=== PATIENT | male | born 1960 | race Two or more races ===

== ENCOUNTER 2016-05-24 08:40 | Inpatient (IN) | payer MEDICAID ==
[~2016-05-24] VITALS: Ht 170.2 cm; Wt 68.0 kg
--- NOTE | 2016-05-24 08:48 | Emergency Room Report ---
History of Present Illness General Source: Patient Present Illness HPI Patient is a 55-year-old male sent in by the nursing facility for increased hematuria. Patient recently catheter placement. Patient was noted to be ventilator dependent. Patient had recent urinary retention. Patient had not been having any recent fever. History is limited by patient's trach in mental status. Patient was awake and alert. Allergies: Coded Allergies: No Known Allergies (Unverified , 05/24/16) Patient History Reviewed Nursing Documentation: PMH: Agreed, PSxH: Agreed Review of Systems All Other Systems: negative except mentioned in HPI Physical Exam Sp02 EP Interpretation: reviewed, normal General Appearance: normal inspection, well appearing, no apparent distress, alert, GCS 15 Head: atraumatic ENT: normal ENT inspection, hearing grossly normal, normal voice Neck: normal inspection, full range of motion, supple, no bony tend Respiratory: normal inspection, lungs clear, normal breath sounds, no respiratory distress, no retraction, no wheezing Cardiovascular #1: regular rate, rhythm, no edema Gastrointestinal: normal inspection, non tender, soft, no guarding, no hernia, spleenomegaly, other - fluid wave Genitourinary: no CVA tenderness Musculoskeletal: normal inspection, back normal, normal range of motion Neurologic: normal inspection, alert, oriented x3, responsive, rfid specialist III-XII nml as tested, speech normal Psychiatric: normal inspection, judgement/insight normal, mood/affect normal Skin: normal inspection, normal color, no rash Medical Decision Making Diagnostic Impression: Primary Impression: Hematuria Additional Impressions: Prolonged Q-T interval on ECG Right bundle branch block (RBBB) Hyponatremia with excess extracellular fluid volume Colon catheter problem Cirrhosis ER Course Patient presented for hematuria. Differential diagnosis included was not limited to renal stone, aortic aneurysm, acute tubular necrosis, glomerulonephritis, renal, Colon catheter injury among others.Because of complexity of patient's case laboratory testing and imaging studies were ordered.Patient noted a ventilator and tracheostomy dependent.The patient was continued on mechanical ventilation.The patient was noted to have a Colon catheter which was placed in in the past few days for urinary retention.Colon catheter was noted to be placed . Colon catheter was changed to a three-way Colon. Patient noted have continued hematuria. Laboratory testing showed evidence of hyponatremia probably related the patient's liver disease. Patient noted have sodium 120. Colon catheter was noted to be placed . Colon catheter was changed to a three-way Colon. Patient noted have continued hematuria. Laboratory testing showed evidence of hyponatremia probably related the patient's liver disease. Patient noted have sodium 120. CT imaging of the abdomen pelvis showed evidence of cirrhosis as well as gallbladder stones there were bilateral pleural effusions. Dr. Breen was contacted for inpatient management due to complexity of medical condition. Labs Test 05/24/16 09:00 White Blood Count 6.9 K/UL (4.8-10.8) Red Blood Count 3.22 M/UL (4.70-6.10) Hemoglobin 10.7 G/DL (14.2-18.0) Hematocrit 30.8 % (42.0-52.0) Mean Corpuscular Volume 96 FL (80-99) Mean Corpuscular Hemoglobin 33.2 PG (27.0-31.0) Mean Corpuscular Hemoglobin Concent 34.7 G/DL (32.0-36.0) Red Cell Distribution Width 15.9 % (11.6-14.8) Platelet Count 201 K/UL (150-450) Mean Platelet Volume 7.0 FL (6.5-10.1) Neutrophils (%) (Auto) 65.9 % (45.0-75.0) Lymphocytes (%) (Auto) 13.5 % (20.0-45.0) Monocytes (%) (Auto) 9.5 % (1.0-10.0) Eosinophils (%) (Auto) 10.3 % (0.0-3.0) Basophils (%) (Auto) 0.8 % (0.0-2.0) Prothrombin Time 14.2 SEC (9.30-11.50) Prothromb Time International Ratio 1.4 (0.9-1.1) Activated Partial Thromboplast Time 35 SEC (23-33) Urine Color Brown Urine Appearance Cloudy Urine pH 5 (4.5-8.0) Urine Specific [place] 1.025 (1.005-1.035) Urine Protein 3+ (NEGATIVE) Urine Glucose (UA) Negative (NEGATIVE) Urine Ketones 1+ (NEGATIVE) Urine Occult Blood 5+ (NEGATIVE) Urine Nitrite Positive (NEGATIVE) Urine Bilirubin Negative (NEGATIVE) Urine Urobilinogen 1 MG/DL (0.0-1.0) Urine Leukocyte Esterase 3+ (NEGATIVE) Urine RBC Tntc /HPF (0 - 0) Urine WBC 15-20 /HPF (0 - 0) Urine Squamous Epithelial Cells Occasional /LPF Urine Bacteria Moderate /HPF (NONE) Sodium Level 120 mEQ/L (135-145) Potassium Level 4.7 mEQ/L (3.4-4.9) Chloride Level 81 mEQ/L (98-107) Carbon Dioxide Level 25 mEQ/L (20-30) Anion Gap 14 (5-15) Blood Urea Nitrogen 12 mg/dL (7-23) Creatinine 0.2 mg/dL (0.7-1.2) Estimat Glomerular Filtration Rate > 60 mL/min (>60) Glucose Level 92 mg/dL (74-106) Lactic Acid Level 1.40 mmol/L (0.66-2.22) Calcium Level 8.2 mg/dL (8.6-10.2) Total Bilirubin 1.1 mg/dL (0.0-1.2) Direct Bilirubin 0.4 mg/dL (0.1-0.3) Aspartate Amino Transf (AST/SGOT) 33 U/L (5-40) Alanine Aminotransferase (ALT/SGPT) 18 U/L (3-41) Alkaline Phosphatase 190 U/L (40-129) Total Creatine Kinase 20 U/L (38-174) Creatine Kinase MB < 1.5 ng/mL (< 6.7) Creatine Kinase MB Relative Index 7.5 Troponin I < 0.30 ng/mL (<=0.30) Total Protein 6.7 g/dL (6.6-8.7) Albumin 2.6 g/dL (3.5-5.2) Globulin 4.1 g/dL Albumin/Globulin Ratio 0.6 (1.0-2.7) EKG Diagnostic Results Rate: normal Rhythm: NSR ST Segments: other - right bundle branch block Rhythm Strip Diag. Results EP Interpretation: yes Rhythm: NSR - 86, no PVC's, no ectopy Status: unchanged Disposition: ADMITTED INPATIENT Condition: Joel Rinaldi May 24, 2016 08:48
[2016-05-24] MEDS ORDERED: PROPRANOLOL HCL10 MG GT (08:58)
[2016-05-24] MEDS ORDERED: LACTULOSE20 GM/301 GT (08:58)
[2016-05-24] MEDS ORDERED: METRONIDAZOLE500 MG GT (08:58)
[2016-05-24] MEDS ORDERED: KEPPRA LIQ100 MG/1 M GT (09:00)
[2016-05-24] MEDS ORDERED: XIFAXAN550 MG GT (09:00)
[2016-05-24] MEDS ORDERED: PEPCID20 MG GT (09:00)
[2016-05-24] MEDS ORDERED: ZINC SULFATE220 M1 GT (09:01)
[2016-05-24] MEDS ORDERED: VITAMIN C500 M1 GT (09:01)
[2016-05-24] MEDS ORDERED: UTI-STAT L3875 MG/31 GT (09:03)
[2016-05-24] MEDS ORDERED: ACETAMINOP160 MG/5 M ORAL (09:03)
[2016-05-24] MEDS ORDERED: FLEET ENEMA133 ML RECTAL (09:05)
[2016-05-24] MEDS ORDERED: MILK OF MA400 MG/51 GT (09:05)
[2016-05-24] MEDS ORDERED: DULCOLAX10 MG RC (09:05)
[2016-05-24 09:27] LABS: BASOPHILS % (AUTO) 0.8 % (0.0-2.0); EOSINOPHILS % (AUTO) 10.3 % (0.0-3.0); LYMPHOCYTES % (AUTO) 13.5 % (20.0-45.0); MEAN CORPUSCULAR HEMOGLOBIN 33.2 PG (27.0-31.0); MEAN CORPUSCULAR HGB CONC 34.7 G/DL (32.0-36.0); MEAN CORPUSCULAR VOLUME 96 FL (80-99); MONOCYTES % (AUTO) 9.5 % (1.0-10.0); NEUTROPHILS % (AUTO) 65.9 % (45.0-75.0); PLATELET COUNT 201 K/UL (150-450); RED BLOOD COUNT 3.22 M/UL (4.70-6.10); RED CELL DISTRIBUTION WIDTH 15.9 % (11.6-14.8); WHITE BLOOD COUNT 6.9 K/UL (4.8-10.8)
[2016-05-24 09:31] LABS: APPEARANCE,URINE CLOUDY; INR 1.4 (0.9-1.1); KETONES,URINE 1+ (NEGATIVE); LEUKOCYTE ESTERASE ,URINE 3+ (NEGATIVE); NITRITE,URINE POSITIVE (NEGATIVE); PH,URINE 5 (4.5-8.0); PROTEIN,URINE 3+ (NEGATIVE); PROTHROMBIN TIME 14.2 SEC (9.30-11.50); UROBILINOGEN,URINE 1 MG/DL (0.0-1.0)
[2016-05-24 09:35] LABS: BACTERIA,URINE MODERATE /HPF; RBC,URINE TNTC /HPF (0 - 0); SQUAMOUS EPITHELIAL CELL,UR OCCASIONAL /LPF (NONE/OCC); WBC,URINE 15-20 /HPF (0 - 0)
[2016-05-24 09:37] LABS: TROPONIN I < 0.30 ng/mL (<=0.30)
[2016-05-24 09:40] LABS: ALANINE AMINOTRANSFERASE 18 U/L (3-41); ALBUMIN/GLOBULIN RATIO 0.6 (1.0-2.7); ANION GAP 14 (5-15); ASPARTATE AMINO TRANSFERASE 33 U/L (5-40); CALCIUM 8.2 mg/dL (8.6-10.2); CARBON DIOXIDE 25 mEQ/L (20-30); CHLORIDE 81 mEQ/L (98-107); CREATININE 0.2 mg/dL (0.7-1.2); GLOMERULAR FILTRATION RATE > 60 mL/min (>60); HEMOLYSIS 3; POTASSIUM 4.7 mEQ/L (3.4-4.9); SODIUM 120 mEQ/L (135-145); TOTAL PROTEIN 6.7 g/dL (6.6-8.7)
[2016-05-24 09:50] LABS: CKMB < 1.5 ng/mL (< 6.7)
[2016-05-24 10:00] VITALS: BP 111/60
[2016-05-24 10:01] LABS: BILIRUBIN,DIRECT 0.4 mg/dL (0.1-0.3)
[2016-05-24] MEDS ORDERED: Morphine Sulfate 2mg/ml Inj IVP ONE (10:45)
[2016-05-24 12:00] VITALS: BP 104/56
[2016-05-24] MEDS ORDERED: Nitroglycerin Subl 0.4mg tab (Bottle Of 25) SL PRN (12:15)
[2016-05-24] MEDS ORDERED: DuoNeb 0.5-3(2.5)mg/3ml neb HHN PRN (12:15)
[2016-05-24] MEDS ORDERED: Miralax 17gm pkt ORAL PRN (12:15)
--- NOTE | 2016-05-24 12:27 | Diagnostic Imaging Report ---
\H\CT Abdomen and Pelvis Indication: Hematuria. Urinary retention with recent catheter placement. Comparison: None available. Technique: Utilizing a multislice CT scanner, a CT of the abdomen and pelvis was performed without intravenous contrast. All CT scans at this facility use dose modulation, iterative reconstruction, and/or weight based dosing when appropriate to reduce radiation dose to as low as reasonably achievable. CTDIvol (mGy): 17 DLP (mGy-cm): 1099 Findings: Lack of intravenous contrast limits evaluation of the visceral and vascular structures. Trace bilateral pleural effusions are identified with probable adjacent atelectasis. Moderate volume ascites is noted throughout the abdomen and pelvis. The liver is nodular in contour compatible with hepatic cirrhosis. Hepatic parenchymal lesion such as HCC is not excluded without IV contrast. The spleen is enlarged. Several portosystemic collaterals are identified. Findings reflect sequela of portal hypertension. The gallbladder contains multiple gallstones in the region of the gallbladder neck. Layering sludge is likely present. Consider HIDA scan if there is clinical suspicion for acute cholecystitis. Small hiatal hernia is noted. A balloon retention gastrostomy tube is noted in the body of the stomach. The pancreas and adrenal glands are unremarkable. No calculus is identified within either kidney, along the expected course of the ureters or within the urinary bladder. There is no evidence of hydronephrosis or asymmetric perirenal inflammatory change. The urinary bladder is decompressed with an indwelling Colon catheter. Air pockets within the urinary bladder likely reflect sequela of recent instrumentation/catheterization. The pelvic organs are grossly unremarkable. Nonspecific wall thickening of the cecum is identified. Findings may reflect sequela of cirrhosis and low albumin state. Malignancy is not excluded. Normal appendix. There is no evidence of obstruction. There is no extraluminal gas or fluid. There are no enlarged lymph nodes. There is mild calcified atherosclerotic disease of the the abdominal aorta. The osseous structures are unremarkable. \N\\H\Impression: 1. Hepatic cirrhosis with sequela of portal hypertension including moderate volume ascites, splenomegaly and portosystemic venous collaterals. Hepatic parenchymal lesion such as HCC is not excluded without IV contrast. 2. Cholelithiasis and gallbladder sludge. Consider HIDA scan if there is clinical suspicion for acute cholecystitis. 3. Decompressed urinary bladder with an indwelling Colon catheter. No hydronephrosis. 4. Nonspecific wall thickening of the cecum. Findings may reflect sequela of cirrhosis and low albumin state. Malignancy is not excluded. 5. Trace bilateral pleural effusions with basilar atelectasis. 6. Small hiatal hernia. Balloon retention gastrostomy tube noted.\N\
--- NOTE | 2016-05-24 13:26 | Consultation ---
Consult Note Consult Note Asked to eval for hyponatremia of 120 Patient is a 55-year-old male sent in by the nursing facility for increased hematuria. Patient recently catheter placement. Patient was noted to be ventilator dependent. Patient had recent urinary retention. Patient had not been having any recent fever. History is limited by patient's trach in mental status. Patient was awake and alert. Allergies: Coded Allergies: No Known Allergies (Unverified , 05/24/16) Patient examined in ER room 1 Data reviewed Assessment/Plan Hyponatremia, likely due to Edematous state and Ascitis due to underlying Cirrhosis Hematuria reason for ER referral Right bundle branch block (RBBB) Colon catheter problem Cirrhosis CVA right javi- OLD Respiratory failure on Vent via Trach Suggestion: Slow saline infusion and slow diuresis monitor lytes avoid nephrotoxics as possible per orders GUS JOHNSON May 24, 2016 13:25
[2016-05-24] MEDS ORDERED: NaCl 3% 500ml 500 ML IV ONE (13:30)
[2016-05-24] MEDS ORDERED: Tubing IV Cassette IV ONE (14:04)
[2016-05-24] MEDS ORDERED: NS 275 ML ONE (14:04)
[2016-05-24] MEDS ORDERED: Vancomycin 1gm inj IVPB ONE (14:04)
[2016-05-24] MEDS: Pantoprazole Inj IVP SCH (14:33)
[2016-05-24] MEDS: Vancomycin 1250mg/D5W 275ml IVPB SCH ×2 (14:34)
[2016-05-24 15:54] LABS: URIC ACID 2.4 mg/dL (3.0-7.5)
[2016-05-24 16:04] LABS: THYROID STIMULATING HORMONE 4.13 uIU/mL (0.300-4.500)
[2016-05-24 17:00] VITALS: BP 104/57
[2016-05-24] MEDS: Cefepime HCl 2 GM in D5W 110 ML IV SCH (17:46)
[2016-05-24] MEDS: Lactulose 20gm/30ml UDC GT SCH ×2 (17:47→20:29)
[2016-05-24] MEDS ORDERED: Propranolol 10mg tab GT SCH (18:00)
[2016-05-24 20:08] VITALS: BP 115/55
--- NOTE | 2016-05-24 22:34 | History and Physical ---
History of Present Illness General Date patient seen: May 25, 2016 Reason for Hospitalization: General Complaint Present Illness HPI 55-year-old male with chronic respiratory failure sent in by the nursing facility for hematuria. He was found to have severe Hyponatremia in ER and was started on 3% sailing. He is admitted to [facility] for further management. Allergies: Coded Allergies: No Known Allergies (Unverified , 05/24/16) Medication History Scheduled Ascorbic Acid* (Vitamin C*), 500 MG GT DAILY, (Reported) Cran/Vitc/Mannose/Inulin/Brom (Uti-Stat Liquid), 3,875 MG GT DAILY, (Reported) Famotidine (Pepcid), 20 MG GT BEDTIME, (Reported) Lactulose (Lactulose*), 30 ML GT QID, (Reported) Levetiracetam (Keppra), 15 ML GT DAILY, (Reported) Propranolol Hcl* (Inderal*), 10 MG GT BID, (Reported) Rifaximin* (Xifaxan*), 550 MG GT TWICE A DAY, (Reported) Zinc Sulfate (Zinc Sulfate*), 220 MG GT DAILY, (Reported) Scheduled PRN Acetaminophen 160MG/5ML* (Acetaminophen*), 20 ML ORAL EVERY 4 HOURS PRN for For Pain, (Reported) Bisacodyl (Dulcolax), 10 MG RC DAILY PRN for Constipation, (Reported) Magnesium Hydroxide* (Milk Of Magnesia*), 30 ML GT DAILY PRN for Constipation, ( Reported) Na Phos,M-B/Na Phos,Di-Ba* (Fleet Enema*), 133 ML RECTAL EVERY TWO DAYS PRN for Constipation, (Reported) Discontinued Medications Metronidazole* (Flagyl*), 500 MG GT EVERY 8 HOURS, (Reported) Discontinued Reason: discontinued med Patient History Healthcare decision maker Resuscitation status Full Code Advanced Directive on File No Review of Systems All Other Systems: negative except mentioned in HPI Physical Exam General Appearance: alert, confused, mild distress HEENT: normocephalic, atraumatic Neck: non-tender, normal alignment Respiratory/Chest: chest wall non-tender, lungs clear Cardiovascular/Chest: regular rhythm, regularly irregular Last 24 Hour Vital Signs Date Time Temp Pulse Resp B/P Pulse Ox O2 Delivery O2 Flow Rate FiO2 05/24/16 21:06 85 25 40 05/24/16 20:08 97.0 85 18 115/55 100 Mechanical Ventilator 40 05/24/16 20:00 40 05/24/16 20:00 82 05/24/16 19:39 83 18 40 05/24/16 17:47 69 94/52 05/24/16 17:08 73 21 40 05/24/16 17:00 97.0 80 19 104/57 100 Mechanical Ventilator 40 05/24/16 16:30 82 05/24/16 16:20 40 05/24/16 15:39 98.0 84 26 104/56 100 Mechanical Ventilator 40 05/24/16 15:20 86 20 40 05/24/16 12:54 87 26 40 05/24/16 12:00 84 20 104/56 100 Mechanical Ventilator 40 05/24/16 11:50 93 26 Mechanical Ventilator 40 05/24/16 11:29 93 26 40 05/24/16 11:26 98.0 05/24/16 10:00 81 18 111/60 100 Mechanical Ventilator 40 05/24/16 08:50 90 31 Mechanical Ventilator 40 05/24/16 08:50 90 31 40 05/24/16 08:50 28 05/24/16 08:50 40 05/24/16 08:45 98.1 76 16 122/60 99 Mechanical Ventilator 28 Laboratory Tests Test 05/24/16 08:50 05/24/16 09:00 05/24/16 15:00 Urine Random Sodium 12 mmol/L White Blood Count 6.9 K/UL (4.8-10.8) Red Blood Count 3.22 M/UL (4.70-6.10) L Hemoglobin 10.7 G/DL (14.2-18.0) L Hematocrit 30.8 % (42.0-52.0) L Mean Corpuscular Volume 96 FL (80-99) Mean Corpuscular Hemoglobin 33.2 PG (27.0-31.0) H Mean Corpuscular Hemoglobin Concent 34.7 G/DL (32.0-36.0) Red Cell Distribution Width 15.9 % (11.6-14.8) H Platelet Count 201 K/UL (150-450) Mean Platelet Volume 7.0 FL (6.5-10.1) Neutrophils (%) (Auto) 65.9 % (45.0-75.0) Lymphocytes (%) (Auto) 13.5 % (20.0-45.0) L Monocytes (%) (Auto) 9.5 % (1.0-10.0) Eosinophils (%) (Auto) 10.3 % (0.0-3.0) H Basophils (%) (Auto) 0.8 % (0.0-2.0) Prothrombin Time 14.2 SEC (9.30-11.50) H Prothromb Time International Ratio 1.4 (0.9-1.1) H Activated Partial Thromboplast Time 35 SEC (23-33) H Urine Color Brown Urine Appearance Cloudy Urine pH 5 (4.5-8.0) Urine Specific [place] 1.025 (1.005-1.035) Urine Protein 3+ (NEGATIVE) H Urine Glucose (UA) Negative (NEGATIVE) Urine Ketones 1+ (NEGATIVE) H Urine Occult Blood 5+ (NEGATIVE) H Urine Nitrite Positive (NEGATIVE) H Urine Bilirubin Negative (NEGATIVE) Urine Urobilinogen 1 MG/DL (0.0-1.0) H Urine Leukocyte Esterase 3+ (NEGATIVE) H Urine RBC Tntc /HPF (0 - 0) H Urine WBC 15-20 /HPF (0 - 0) H Urine Squamous Epithelial Cells Occasional /LPF Urine Bacteria Moderate /HPF (NONE) H Sodium Level 120 mEQ/L (135-145) L Potassium Level 4.7 mEQ/L (3.4-4.9) Chloride Level 81 mEQ/L (98-107) L Carbon Dioxide Level 25 mEQ/L (20-30) Anion Gap 14 (5-15) Blood Urea Nitrogen 12 mg/dL (7-23) Creatinine 0.2 mg/dL (0.7-1.2) L Estimat Glomerular Filtration Rate > 60 mL/min (>60) Glucose Level 92 mg/dL (74-106) Plasma/Serum Osmolality Pending Lactic Acid Level 1.40 mmol/L (0.66-2.22) Uric Acid 2.4 mg/dL (3.0-7.5) L Calcium Level 8.2 mg/dL (8.6-10.2) L Total Bilirubin 1.1 mg/dL (0.0-1.2) Direct Bilirubin 0.4 mg/dL (0.1-0.3) H Aspartate Amino Transf (AST/SGOT) 33 U/L (5-40) Alanine Aminotransferase (ALT/SGPT) 18 U/L (3-41) Alkaline Phosphatase 190 U/L (40-129) H Total Creatine Kinase 20 U/L (38-174) L Creatine Kinase MB < 1.5 ng/mL (< 6.7) Creatine Kinase MB Relative Index 7.5 Troponin I < 0.30 ng/mL (<=0.30) Total Protein 6.7 g/dL (6.6-8.7) Albumin 2.6 g/dL (3.5-5.2) L Globulin 4.1 g/dL Albumin/Globulin Ratio 0.6 (1.0-2.7) L Thyroid Stimulating Hormone (TSH) 4.130 uIU/mL (0.300-4.500) Free Thyroxine 1.26 ng/dL (0.86-1.85) Cortisol Pending Free Triiodothyronine Pending Height (Feet): 5 Height (Inches): 7.00 Weight (Pounds): 150 Medications Current Medications Medications (Trade) Dose Ordered Sig/Hair Route PRN Reason Start Time Stop Time Status Last Admin Dose Admin Acetaminophen (Tylenol) 650 mg Q4H PRN ORAL fever 05/24/16 12:15 06/23/16 12:14 Albuterol/ Ipratropium 3 ml 3 ml Q4HRT PRN HHN Shortness of Breath 05/24/16 12:15 05/29/16 12:14 Cefepime HCl/ Dextrose (Maxipime/D5W) 110 ml @ 220 mls/hr Q12H IV 05/24/16 16:00 05/31/16 15:59 05/24/16 17:46 Furosemide (Lasix) 10 mg Q6H IV 05/24/16 14:00 06/23/16 13:59 05/24/16 20:25 Lactulose 20 gm 20 gm QID GT 05/24/16 18:00 06/23/16 17:59 05/24/16 20:29 Levetiracetam (Keppra) 1,500 mg DAILY GT 05/25/16 09:00 06/24/16 08:59 Morphine Sulfate (Morphine Sulfate) 2 mg Q4H PRN IVP Moderate Pain (Pain Scale 4-6) 05/24/16 12:15 05/31/16 12:14 Nitroglycerin 0.4 mg 0.4 mg 5MIN PRN SL Prn Chest Pain 05/24/16 12:15 06/23/16 12:14 Ondansetron HCl (Zofran) 4 mg Q6H PRN IVP Nausea & Vomiting 05/24/16 12:15 06/23/16 12:14 Pantoprazole (Protonix) 40 mg DAILY IVP 05/24/16 14:30 06/23/16 14:29 05/24/16 14:33 Polyethylene Glycol (Miralax) 17 gm DAILYPRN PRN ORAL Constipation 05/24/16 12:15 06/23/16 12:14 Propranolol HCl (Inderal) 10 mg BID GT 05/24/16 18:00 06/23/16 17:59 Sodium Chloride (Hypertonic Saline) 500 ml @ 30 mls/hr ONCE ONCE IV 05/24/16 13:30 05/25/16 06:09 05/24/16 14:33 Temazepam (Restoril) 15 mg HSPRN PRN ORAL Insomnia 05/24/16 12:15 05/31/16 12:14 Vancomycin HCl (Vanco rx to dose) 1 ea DAILY PRN MISC Per rx protocol 05/24/16 13:45 06/23/16 13:44 Vancomycin HCl/ Dextrose (Vancomycin/D5W) 275 ml @ 183.333 mls/hr Q12H IVPB 05/24/16 14:00 05/29/16 13:59 05/24/16 14:34 Assessment/Plan Problem List: (1) Chronic respiratory failure ICD Codes: J96.10 - Chronic respiratory failure, unspecified whether with hypoxia or hypercapnia SNOMED: 25687552 (2) Hyponatremia ICD Codes: E87.1 - Hypo-osmolality and hyponatremia SNOMED: 46522098 (3) Hematuria ICD Codes: R31.9 - Hematuria, unspecified SNOMED: 63075594 (4) Right bundle branch block (RBBB) ICD Codes: I45.10 - Unspecified right bundle-branch block SNOMED: 91473469 (5) Cirrhosis ICD Codes: K74.60 - Unspecified cirrhosis of liver SNOMED: 50640623 Assessment/Plan Urology evaluation 3% Ns Fluid check cultures r/o UTI as cause of hematuria titrate vent setting as needed SCD for dvt prophylaxis check electrolytes daily DANTE HSIEH May 24, 2016 22:34
[2016-05-25] VITALS: BP 104/57
[2016-05-25] MEDS ORDERED: Vancomycin 1 GM in D5W 275 ML IV SCH (00:30)
[2016-05-25] MEDS: Morphine Sulfate 2mg/ml Inj IVP PRN ×2 (00:37→13:51)
[2016-05-25] MEDS: Vancomycin 1250mg/D5W 275ml IVPB SCH ×4 (02:02→15:37)
[2016-05-25 04:00] VITALS: BP 114/60
[2016-05-25] MEDS: Cefepime HCl 2 GM in D5W 110 ML IV SCH ×2 (04:11→17:15)
[2016-05-25 04:54] LABS: EOSINOPHILS % (AUTO) 8.5 % (0.0-3.0); LYMPHOCYTES % (AUTO) 11.8 % (20.0-45.0); MEAN CORPUSCULAR HEMOGLOBIN 33.7 PG (27.0-31.0); MEAN CORPUSCULAR HGB CONC 34.9 G/DL (32.0-36.0); MEAN CORPUSCULAR VOLUME 97 FL (80-99); MEAN PLATELET VOLUME 6.4 FL (6.5-10.1); MONOCYTES % (AUTO) 8.8 % (1.0-10.0); NEUTROPHILS % (AUTO) 69.9 % (45.0-75.0); PLATELET COUNT 172 K/UL (150-450); RED BLOOD COUNT 2.86 M/UL (4.70-6.10); WHITE BLOOD COUNT 5.3 K/UL (4.8-10.8)
[2016-05-25 05:30] LABS: CRP QUANT 1.2 mg/dL (< 0.5); MAGNESIUM 1.6 mg/dL (1.7-2.5); PHOSPHORUS 4.1 mg/dL (2.5-4.8); URIC ACID 2.9 mg/dL (3.0-7.5)
[2016-05-25 05:33] LABS: ALANINE AMINOTRANSFERASE 18 U/L (3-41); ALBUMIN/GLOBULIN RATIO 0.5 (1.0-2.7); ANION GAP 16 (5-15); ASPARTATE AMINO TRANSFERASE 35 U/L (5-40); CALCIUM 8.1 mg/dL (8.6-10.2); CARBON DIOXIDE 22 mEQ/L (20-30); CHLORIDE 86 mEQ/L (98-107); CREATININE 0.2 mg/dL (0.7-1.2); GLOMERULAR FILTRATION RATE > 60 mL/min (>60); HEMOLYSIS 2; POTASSIUM 4.2 mEQ/L (3.4-4.9); SODIUM 124 mEQ/L (135-145); TOTAL PROTEIN 6.2 g/dL (6.6-8.7)
[2016-05-25 05:59] LABS: BILIRUBIN,DIRECT 0.4 mg/dL (0.1-0.3)
--- NOTE | 2016-05-25 07:18 | Consultation ---
DATE OF CONSULTATION: 05/24/2016 ATTENDING/CONSULTING PHYSICIAN: Uma Breen M.D. CHIEF COMPLAINT/HISTORY OF PRESENT ILLNESS: I was asked by Dr. Breen to evaluate this unfortunate 55-year-old gentleman regarding history of gross hematuria in the setting of urinary tract infection. Briefly, the patient [facility] for noted hematuria. He recently had a catheter placed. The patient has a history of respiratory failure and is ventilator dependent. Taking history is limited by the patient's difficulty providing information due to the trach. Most of the information is gathered from the chart. PAST MEDICAL HISTORY: 1. Chronic respiratory failure with ventilator dependence. 2. Prolonged QT interval/right bundle-branch block on EKG. 3. Cirrhosis. 4. Hyponatremia. 5. Old CVA. PAST SURGICAL HISTORY: Tracheostomy. G-tube is well placed. MEDICATIONS: Please see the chart for current medications and administration details. Briefly, the patient is on cefepime and vancomycin for antibiotic coverage. ALLERGIES: No known drug allergies. SOCIAL HISTORY: Unremarkable tobacco, alcohol, or drug use. FAMILY HISTORY: Noncontributory. REVIEW OF SYSTEMS: A 12-system review of systems cannot be done as the patient cannot provide much information due to the tracheostomy. PHYSICAL EXAMINATION: GENERAL: The patient is a middle-aged gentleman, awake and alert, appears oriented, in no obvious distress. HEENT: NC/AT. EOMI. Oropharynx clear. NECK: Supple. Tracheostomy clean, dry, and intact. CHEST: Within normal limits. ABDOMEN: Soft, flat, nontender, and nondistended. EXTREMITIES: Warm and well perfused. No cyanosis, clubbing, or edema. BACK: No apparent CVA tenderness. NEUROLOGIC: Exam is deferred at this time. GENITOURINARY: Reveals a normal male phallus with a Colon catheter in place. There are bilateral descended testes and cord structures with no masses or tenderness to palpation. LABORATORY DATA: White blood cell count 6.9, hematocrit 30.8, and platelets 201,000. PT 14.2, INR 1.4, and PTT 35. Urinalysis, specific gravity 1.025, pH of 5.0. Dip test notable for 3+ protein, 1+ ketones, 5+ occult blood, positive nitrates, 3+ leukocyte esterase, 1+ urobilinogen. Microanalysis with ooa-yvflexrh-vd-count red blood cells per high-power field, 15 to 20 white blood cells per high-power field, and moderate bacteria seen. Uric acid 2.4. Lactic acid 1.4. DIAGNOSTIC IMAGING: CT scan of the abdomen and pelvis reveals hepatic cirrhosis with evidence of portal hypertension secondary to same. There is cholelithiasis and gallbladder sludge. There is a decompressed urinary bladder with Colon catheter in place. No hydronephrosis. There is nonspecific wall thickening of the cecum. There are trace bilateral pleural effusions and bibasilar atelectasis. There is a small hiatal hernia. There is a G-tube in place. ASSESSMENT AND PLAN: In summary, the patient is a 55-year-old gentleman with a history of previous stroke and chronic respiratory failure who is ventilator dependent. He has a trach and percutaneous endoscopic gastrostomy in place for management and lives in a [facility] facility. Recently, he has a catheter in place for bladder management. He was noted to have hematuria in his SNF. Given the above, he was sent here for further evaluation. Physical exam reveals pinkish yellow urine output currently. Laboratory data notable for hematuria and evidence of urinary tract infection. Diagnostic imaging reveals no significant findings from a genitourinary standpoint on CT scan. It appears this patient's hematuria secondary to urinary tract infection. It already appears to be clearing on his excellent antibiotic coverage to cefepime and vancomycin. We should continue the same. As the patient's urine clears, he should continue and complete a course of 7 to 10 days of antibiotics. If it fails to clear despite the antibiotics, he will need more urgent cystoscopy in an effort to assess for an additional source of bleeding. Thank you for allowing me to participate in the care of this unfortunate gentleman. Please do not hesitate to contact me with any questions that you further have regarding his care. I will be happy to continue to see him with you as needed. Lukas Barajas M.D. DR: AL JOB#: [id number] CC:
[2016-05-25 08:00] VITALS: BP 112/57
--- NOTE | 2016-05-25 08:44 | Consultation ---
Consult Note Consult Note ID CONSULT: Wendy# [id number] Assessment/Plan ASSESSMENT: 55 y/o male with: // Gross hematuria SP cervantes placement in setting of probable UTI - UCx pending - CT A/P: No calculus is identified within either kidney, along the expected course of the ureters or within the urinary bladder. There is no evidence of hydronephrosis or asymmetric perirenal inflammatory change. The urinary bladder is decompressed with an indwelling Cervantes catheter. Air pockets within the urinary bladder likely reflect sequela of recent instrumentation/ catheterization. // Unstageable sacral debuitus POA, not grossly infected // Afebrile without leukocytosis // Cirrhosis // Hyponatremia / electrolyte imbalance // Chronic VDRF SP trach, PEG // h/o CVA // [facility] resident // NKDA // Full Code PLAN: - continue empiric cefepime d# 2 / 10. DC IV vancomycin d# 2 - f/u cultures, adjust ABX accordingly - monitor CBC, temperatures - monitor BMP - vent support, trach care, aspiration precautions Thanks! Will follow JO CABRERA May 25, 2016 08:44
[2016-05-25 08:59] LABS: APPEARANCE,URINE CLOUDY; KETONES,URINE NEGATIVE (NEGATIVE); LEUKOCYTE ESTERASE ,URINE 3+ (NEGATIVE); NITRITE,URINE NEGATIVE (NEGATIVE); PH,URINE 6 (4.5-8.0); PROTEIN,URINE 2+ (NEGATIVE); UROBILINOGEN,URINE NORMAL MG/DL (0.0-1.0)
[2016-05-25 09:12] LABS: BACTERIA,URINE MODERATE /HPF; RBC,URINE TNTC /HPF (0 - 0); SQUAMOUS EPITHELIAL CELL,UR MODERATE /LPF (NONE/OCC); WBC,URINE TNTC /HPF (0 - 0); YEAST,URINE FEW /HPF
--- NOTE | 2016-05-25 09:33 | General Progress Note ---
Assessment/Plan Status: unchanged Status Narrative Na higher Assessment/Plan Hyponatremia, likely due to Edematous state and Ascitis due to underlying Cirrhosis Hematuria reason for ER referral Right bundle branch block (RBBB) Colon catheter problem Cirrhosis CVA right javi- OLD Respiratory failure on Vent via Trach Suggestion: Slow saline infusion and slow diuresis monitor lytes avoid nephrotoxics as possible per orders Subjective ROS Limited/Unobtainable: No Constitutional: Reports: malaise Allergies: Coded Allergies: No Known Allergies (Unverified , 05/24/16) Objective Last 24 Hour Vital Signs Date Time Temp Pulse Resp B/P Pulse Ox O2 Delivery O2 Flow Rate FiO2 05/25/16 09:02 99 25 40 05/25/16 08:00 40 05/25/16 08:00 85 05/25/16 07:38 99 28 40 05/25/16 05:01 87 29 40 05/25/16 04:00 97.4 89 27 114/60 100 Mechanical Ventilator 40 05/25/16 04:00 40 05/25/16 03:44 86 05/25/16 03:09 87 19 40 05/25/16 01:40 97 19 40 05/25/16 00:00 97.0 89 27 104/57 100 Mechanical Ventilator 40 05/25/16 00:00 40 05/24/16 23:50 91 05/24/16 23:12 82 25 40 05/24/16 21:06 85 25 40 05/24/16 20:08 97.0 85 18 115/55 100 Mechanical Ventilator 40 05/24/16 20:00 40 05/24/16 20:00 82 05/24/16 19:39 83 18 40 05/24/16 17:47 69 94/52 05/24/16 17:08 73 21 40 05/24/16 17:00 97.0 80 19 104/57 100 Mechanical Ventilator 40 05/24/16 16:30 82 05/24/16 16:20 40 05/24/16 15:39 98.0 84 26 104/56 100 Mechanical Ventilator 40 05/24/16 15:20 86 20 40 05/24/16 12:54 87 26 40 05/24/16 12:00 84 20 104/56 100 Mechanical Ventilator 40 05/24/16 11:50 93 26 Mechanical Ventilator 40 05/24/16 11:29 93 26 40 05/24/16 11:26 98.0 05/24/16 10:00 81 18 111/60 100 Mechanical Ventilator 40 Intake and Output 05/24/16 05/25/16 19:00 07:00 Intake Total 535 ml 850.000 ml Output Total 400 ml 1480 ml Balance 135 ml -630.000 ml Intake Oral 0 ml Free Water 40 ml IV Total 475 ml 700.000 ml Tube Feeding 50 ml Other 60 ml 60 ml Output Urine Total 400 ml 1480 ml Laboratory Tests 05/24/16 15:00: Free Triiodothyronine [Pending] 05/25/16 03:00: White Blood Count 5.3, Red Blood Count 2.86L, Hemoglobin 9.7L, Hematocrit 27.7L , Mean Corpuscular Volume 97, Mean Corpuscular Hemoglobin 33.7H, Mean Corpuscular Hemoglobin Concent 34.9, Red Cell Distribution Width 16.0H, Platelet Count 172, Mean Platelet Volume 6.4L, Neutrophils (%) (Auto) 69.9, Lymphocytes (%) (Auto) 11.8L, Monocytes (%) (Auto) 8.8, Eosinophils (%) (Auto) 8.5H, Basophils (%) (Auto) 1.0, Sodium Level 124L, Potassium Level 4.2, Chloride Level 86L, Carbon Dioxide Level 22, Anion Gap 16H, Blood Urea Nitrogen 9, Creatinine 0.2L, Estimat Glomerular Filtration Rate > 60, Glucose Level 103, Uric Acid 2.9L, Calcium Level 8.1L, Phosphorus Level 4.1, Magnesium Level 1.6L, Total Bilirubin 1.3H, Direct Bilirubin 0.4H, Gamma Glutamyl Transpeptidase 309H , Aspartate Amino Transf (AST/SGOT) 35, Alanine Aminotransferase (ALT/SGPT) 18, Alkaline Phosphatase 166H, Total Creatine Kinase 20L, C-Reactive Protein, Quantitative 1.2H, Pro-B-Type Natriuretic Peptide 1000H, Total Protein 6.2L, Albumin 2.3L, Globulin 3.9, Albumin/Globulin Ratio 0.5L 05/25/16 05:30: Urine Color Yellow, Urine Appearance Cloudy, Urine pH 6, Urine Specific [place] 1.020, Urine Protein 2+H, Urine Glucose (UA) Negative, Urine Ketones Negative, Urine Occult Blood 5+H, Urine Nitrite Negative, Urine Bilirubin Negative, Urine Urobilinogen Normal, Urine Leukocyte Esterase 3+H, Urine RBC TntcH, Urine WBC TntcH, Urine Squamous Epithelial Cells ModerateH, Urine Bacteria ModerateH, Urine Yeast FewH, Urine Osmolality [Pending] Height (Feet): 5 Height (Inches): 7.00 Weight (Pounds): 150 General Appearance: no apparent distress EENT: other - trach-vent Cardiovascular: tachycardia Respiratory/Chest: decreased breath sounds Abdomen: distended, other - ascitis Objective other PE not changed GUS JOHNSON May 25, 2016 09:33
[2016-05-25] MEDS: levETIRAcetam 500mg/5ml Liquid GT SCH (10:05)
[2016-05-25] MEDS: Lactulose 20gm/30ml UDC GT SCH ×4 (10:05→22:16)
[2016-05-25] MEDS: Pantoprazole Inj IVP SCH (10:06)
[2016-05-25] MEDS ORDERED: NaCl 3% 500ml 500 ML IV ONE (10:30)
--- NOTE | 2016-05-25 11:18 | Consultation ---
DATE OF CONSULTATION: 05/25/2016 INFECTIOUS DISEASE CONSULTATION: CONSULTING PHYSICIAN: Nader Mcleod M.D. ATTENDING PHYSICIAN: Uma Breen M.D. REFERRING PHYSICIAN: Uma Breen M.D. REASON FOR CONSULTATION: UTI. HISTORY OF PRESENT ILLNESS: This is a 55-year-old male, skilled nursing resident with history of chronic ventilator-dependent respiratory failure and stroke, admitted on 05/24/2016, with gross hematuria after Colon catheter placement. Urinalysis suggests probable urinary tract infection. Urine culture is pending. He is afebrile without leukocytosis. CT of abdomen and pelvis shows no kidney stones, hydronephrosis, or pyelonephritis. The urinary bladder is decompressed an with indwelling Colon catheter. He has been started on empiric IV vancomycin and cefepime day #2 and ID now consulted to assist in management. PAST MEDICAL HISTORY: 1. Seizure disorder. 2. Cirrhosis. 3. Cholelithiasis. 4. Stroke. 5. Chronic ventilator-dependent respiratory failure. PAST SURGICAL HISTORY: 1. Tracheostomy. 2. PEG tube placement. FAMILY HISTORY: Unknown. SOCIAL HISTORY: The patient is a resident of a skilled nursing. No active tobacco, alcohol, or illicit drug abuse. ALLERGIES: No known drug allergies. MEDICATIONS: 1. Vancomycin day #2. 2. Cefepime day #2. 3. Lasix. 4. Protonix. 5. Propranolol. 6. Lactulose. 7. Keppra. REVIEW OF SYSTEMS: Unable to obtain. PHYSICAL EXAMINATION: VITAL SIGNS: Maximum temperature 98.1, blood pressure 114/60, heart rate in the 80s, respiratory rate 20, and saturating 100% on 40% FiO2. GENERAL: No apparent distress. Nontoxic appearing. HEENT: Tracheostomy tube in place. CARDIOVASCULAR: Regular rate and rhythm. No murmurs. PULMONARY: Clear to auscultation bilaterally. ABDOMEN: Bowel sounds present. Soft, nondistended, nontender. PEG tube and Colon catheter in place. EXTREMITIES: edema. LABORATORY DATA: White blood cell count 5.3, hemoglobin 9.7, platelets 172,000. Sodium 124, potassium 4.2, chloride 86, bicarbonate 22, BUN 9, and creatinine 0.2. INR 1.4. AST 35, ALT 18, alkaline phosphatase 156. GGT 309. Total bilirubin 1.3. Albumin 2.3. BNP 1000. Troponin negative x1. CRP 1.2. Thyroid function tests within normal limits. MICROBIOLOGY: 1. 05/24/2016, blood culture pending. 2. 05/24/2016, urine culture pending. IMAGING: Reviewed. ASSESSMENT: 1. Gross hematuria, status post Colon catheter placement. 2. Probable urinary tract infection. Urine culture is pending. No evidence of kidney stones. No hydronephrosis or pyelonephritis on CT scan. 3. Unstageable sacral decubitus ulcer, present on admission and not grossly infected. 4. Afebrile without leukocytosis. 5. Cirrhosis. 6. Hyponatremia/electrolyte imbalance. 7. Chronic ventilator-dependent respiratory failure. 8. History of stroke. 9. [facility] resident. 10. No known drug allergies. 11. Full Code. PLAN: 1. Continue empiric cefepime day #2 of #10. 2. Discontinue IV vancomycin. 3. Follow up cultures and adjust antibiotics accordingly. 4. Monitor CBC and temperatures. 5. Monitor BMP. 6. Ventilator support, tracheostomy care, and aspiration precautions. Thank you. We will follow. Nader Mcleod M.D. : Corrie JOB#: [id number] CC: Uma Breen M.D.; Fax#: [phone] Alborzi, M.D ; Fax#: [phone] Smith, M.D.
[2016-05-25 12:00] VITALS: BP 128/72
--- NOTE | 2016-05-25 13:45 | Pulmonology Progress Note ---
Assessment/Plan Problems: (1) Chronic respiratory failure (2) Hyponatremia (3) Hematuria (4) Right bundle branch block (RBBB) (5) Cirrhosis Respiratory: monitor respiratory rate, adjust FIO2 Cardiac: continue to monitor HR/BP Renal: F/U I&O, keep IV fluid, check electrolytes Infectious Disease: check cultures, continue antibiotics Gastrointestinal: continue feedings/current rate Endocrine: monitor blood sugar, check TSH, continue sliding scale insulin Hematologic: transfuse if hgb<8.5 Neurologic: PRN Morphine, keep patient comfortable Affect: PRN ativan Prophylaxis: Protonix, Heparin Disposition: keep in ICU Notes Reviewed: mink rancher, renal Discussed with: nurses, consultants, case assembler Subjective ROS Limited/Unobtainable: Yes Interval Events: awake, agitated at times Allergies: Coded Allergies: No Known Allergies (Unverified , 05/24/16) Objective Last 24 Hour Vital Signs Date Time Temp Pulse Resp B/P Pulse Ox O2 Delivery O2 Flow Rate FiO2 05/25/16 13:03 110 16 40 05/25/16 11:50 40 05/25/16 10:37 101 25 40 05/25/16 09:02 99 25 40 05/25/16 08:00 97.5 94 28 112/57 Mechanical Ventilator 40 05/25/16 08:00 40 05/25/16 08:00 85 05/25/16 07:38 99 28 40 05/25/16 05:01 87 29 40 05/25/16 04:00 97.4 89 27 114/60 100 Mechanical Ventilator 40 05/25/16 04:00 40 05/25/16 03:44 86 05/25/16 03:09 87 19 40 05/25/16 01:40 97 19 40 05/25/16 00:00 97.0 89 27 104/57 100 Mechanical Ventilator 40 05/25/16 00:00 40 05/24/16 23:50 91 05/24/16 23:12 82 25 40 05/24/16 21:06 85 25 40 05/24/16 20:08 97.0 85 18 115/55 100 Mechanical Ventilator 40 05/24/16 20:00 40 05/24/16 20:00 82 05/24/16 19:39 83 18 40 05/24/16 17:47 69 94/52 05/24/16 17:08 73 21 40 05/24/16 17:00 97.0 80 19 104/57 100 Mechanical Ventilator 40 05/24/16 16:30 82 05/24/16 16:20 40 05/24/16 15:39 98.0 84 26 104/56 100 Mechanical Ventilator 40 05/24/16 15:20 86 20 40 Intake and Output 05/24/16 05/25/16 19:00 07:00 Intake Total 535 ml 850.000 ml Output Total 400 ml 1480 ml Balance 135 ml -630.000 ml Intake Oral 0 ml Free Water 40 ml IV Total 475 ml 700.000 ml Tube Feeding 50 ml Other 60 ml 60 ml Output Urine Total 400 ml 1480 ml General Appearance: WD/WN HEENT: normocephalic, atraumatic, status post trach Respiratory/Chest: chest wall non-tender, lungs clear Cardiovascular: normal rate Abdomen: normal bowel sounds, no organomegaly, other - PEG in place Genitourinary: normal external genitalia Extremities: no cyanosis Skin: no rash, no ulcers Neurologic/Psychiatric: rn allergy II-XII grossly normal, no motor/sensory deficits, alert, oriented x 3, normal mood/affect Lymphatic: no neck adenopathy, no groin adenopathy Microbiology Date/Time Source Procedure Growth Status 05/24/16 09:00 Urine,Clean Catch Urine Culture - Preliminary Yeast Species Resulted Laboratory Tests 05/24/16 15:00: Free Triiodothyronine [Pending] 05/25/16 03:00: White Blood Count 5.3, Red Blood Count 2.86L, Hemoglobin 9.7L, Hematocrit 27.7L , Mean Corpuscular Volume 97, Mean Corpuscular Hemoglobin 33.7H, Mean Corpuscular Hemoglobin Concent 34.9, Red Cell Distribution Width 16.0H, Platelet Count 172, Mean Platelet Volume 6.4L, Neutrophils (%) (Auto) 69.9, Lymphocytes (%) (Auto) 11.8L, Monocytes (%) (Auto) 8.8, Eosinophils (%) (Auto) 8.5H, Basophils (%) (Auto) 1.0, Sodium Level 124L, Potassium Level 4.2, Chloride Level 86L, Carbon Dioxide Level 22, Anion Gap 16H, Blood Urea Nitrogen 9, Creatinine 0.2L, Estimat Glomerular Filtration Rate > 60, Glucose Level 103, Uric Acid 2.9L, Calcium Level 8.1L, Phosphorus Level 4.1, Magnesium Level 1.6L, Total Bilirubin 1.3H, Direct Bilirubin 0.4H, Gamma Glutamyl Transpeptidase 309H , Aspartate Amino Transf (AST/SGOT) 35, Alanine Aminotransferase (ALT/SGPT) 18, Alkaline Phosphatase 166H, Total Creatine Kinase 20L, C-Reactive Protein, Quantitative 1.2H, Pro-B-Type Natriuretic Peptide 1000H, Total Protein 6.2L, Albumin 2.3L, Globulin 3.9, Albumin/Globulin Ratio 0.5L 05/25/16 05:30: Urine Color Yellow, Urine Appearance Cloudy, Urine pH 6, Urine Specific [place] 1.020, Urine Protein 2+H, Urine Glucose (UA) Negative, Urine Ketones Negative, Urine Occult Blood 5+H, Urine Nitrite Negative, Urine Bilirubin Negative, Urine Urobilinogen Normal, Urine Leukocyte Esterase 3+H, Urine RBC TntcH, Urine WBC TntcH, Urine Squamous Epithelial Cells ModerateH, Urine Bacteria ModerateH, Urine Yeast FewH, Urine Osmolality [Pending] Current Medications Medications (Trade) Dose Ordered Sig/Hair Route PRN Reason Start Time Stop Time Status Last Admin Dose Admin Acetaminophen (Tylenol) 650 mg Q4H PRN ORAL fever 05/24/16 12:15 06/23/16 12:14 Albuterol/ Ipratropium 3 ml 3 ml Q4HRT PRN HHN Shortness of Breath 05/24/16 12:15 05/29/16 12:14 Cefepime HCl/ Dextrose (Maxipime/D5W) 110 ml @ 220 mls/hr Q12H IV 05/24/16 16:00 05/31/16 15:59 05/25/16 04:11 Furosemide (Lasix) 20 mg Q6H IV 05/25/16 14:00 06/24/16 13:59 Lactulose (Cephulac) 20 gm QID GT 05/24/16 18:00 06/23/16 17:59 05/25/16 10:05 Levetiracetam (Keppra) 1,500 mg DAILY GT 05/25/16 09:00 06/24/16 08:59 05/25/16 10:05 Lorazepam (Ativan 2mg/ml 1ml) 1 mg Q4H PRN IV For Anxiety 05/25/16 13:15 06/01/16 13:14 Morphine Sulfate (Morphine Sulfate) 2 mg Q4H PRN IVP Moderate Pain (Pain Scale 4-6) 05/24/16 12:15 05/31/16 12:14 05/25/16 00:37 Nitroglycerin 0.4 mg 0.4 mg 5MIN PRN SL Prn Chest Pain 05/24/16 12:15 06/23/16 12:14 Ondansetron HCl (Zofran) 4 mg Q6H PRN IVP Nausea & Vomiting 05/24/16 12:15 06/23/16 12:14 Pantoprazole (Protonix) 40 mg DAILY IVP 05/24/16 14:30 06/23/16 14:29 05/25/16 10:06 Polyethylene Glycol (Miralax) 17 gm DAILYPRN PRN ORAL Constipation 05/24/16 12:15 06/23/16 12:14 Propranolol HCl 10 mg 10 mg TID GT 05/25/16 13:00 06/24/16 12:59 Sodium Chloride (Hypertonic Saline) 500 ml @ 30 mls/hr ONCE ONCE IV 05/25/16 10:30 05/26/16 03:09 05/25/16 10:43 Temazepam (Restoril) 15 mg HSPRN PRN ORAL Insomnia 05/24/16 12:15 05/31/16 12:14 Vancomycin HCl (Vanco rx to dose) 1 ea DAILY PRN MISC Per rx protocol 05/24/16 13:45 05/25/16 23:59 Vancomycin HCl/ Dextrose (Vancomycin/D5W) 275 ml @ 183.333 mls/hr Q12H IVPB 05/24/16 14:00 05/25/16 23:59 05/25/16 02:02 DANTE HSIEH May 25, 2016 13:44
[2016-05-25] MEDS: Propranolol 10mg tab GT SCH ×2 (13:51→18:02)
[2016-05-25 16:00] VITALS: BP 124/75
[2016-05-25] MEDS: LORazepam Inj 2mg/ml 1ml IV PRN (16:16)
--- NOTE | 2016-05-25 17:54 | Wound Care Consultation ---
Wound Assessment Wound Assessment : Wound Present on Admission: Yes New Wound: No Status Change of Wound: No Wound Location Body Site: sacral Wound Type: pressure ulcer Marlin Test: Does not Marlin Pressure Ulcer Stage: IV/unstageable Wound Thickness: Full Thickness Wound Length: 10.5 Wound Width: 4.0 Wound Depth: utd Percent of Wound [place]/Red: 30 Percent of Wound Bed Yellow/Wh: 60 Percent of Wound Black/Brown: 10 Wound Drainage Description: Serosanguineous Wound Drainage Amount: Scant Wound Drainage Odor: None/Absent Tissue Surrounding Wound: Macerated Wound General Appearance: Reddened, Draining, Necrotic Wound Comment #1 Sacral stage IV/unstageable pressure ulcer extended to left buttock #2 Scattered scar tissues on different part of the body #3 Open blisters on abdominal area Recommendation -Sacral pressure ulcer Cleanse with saline, pat dry, apply Therahoney gel to wound bed, apply Triad cream to periwound, cover with bordered gauze daily and PRN soiled/dislodged -Open blisters on abdominal area Cleanse with saline, pat dry, apply adaptic, cover with 4x4, secure with paper tape daily and PRN soiled/dislodged -Apply A&D ointment on BLE for dry skin -Keep clean and dry -Turn and reposition -Optimize nutrition -Low air loss overlay mattress -Offload both heels -Heel protector on both heels -Podiatry consult for toe nails -Assess and f/u accordingly for any changes REINALDO DIAZ RN May 25, 2016 17:54
[2016-05-25 20:00] VITALS: BP 107/63
[2016-05-25] MEDS: Vitamin A&D Oint 2oz Tube TOPIC SCH (22:16)
[2016-05-26] VITALS: BP 121/65
[2016-05-26] MEDS: Cefepime HCl 2 GM in D5W 110 ML IV SCH ×2 (03:51→17:12)
[2016-05-26 04:00] VITALS: BP 108/68
[2016-05-26 06:10] LABS: CORTISOL LC 7.7 ug/dL (.)
--- NOTE | 2016-05-26 06:31 | Infectious Diseases Prog Note ---
Assessment/Plan Assessment/Plan ASSESSMENT: 55 y/o male with: // Gross hematuria SP cervantes placement in setting of probable UTI - UCx : Sonja - CT A/P: No calculus is identified within either kidney, along the expected course of the ureters or within the urinary bladder. There is no evidence of hydronephrosis or asymmetric perirenal inflammatory change. The urinary bladder is decompressed with an indwelling Cervantes catheter. Air pockets within the urinary bladder likely reflect sequela of recent instrumentation/ catheterization. // Unstageable sacral debuitus POA, not grossly infected // Afebrile without leukocytosis // Diarrhea Ro C diff // Cirrhosis // Hyponatremia / electrolyte imbalance // Chronic VDRF SP trach, PEG // h/o CVA // [facility] resident // NKDA // Full Code PLAN: - continue empiric cefepime d# 3 / , add Diflucan d# 1 ( 05/25 SP IV vancomycin d# 2) - f/u cultures, adjust ABX accordingly - monitor CBC, temperatures - monitor BMP - vent support, trach care, aspiration precautions - C Diff Subjective Allergies: Coded Allergies: No Known Allergies (Unverified , 05/24/16) Objective Vital Signs Last 24 Hour Vital Signs Date Time Temp Pulse Resp B/P Pulse Ox O2 Delivery O2 Flow Rate FiO2 05/26/16 04:59 81 26 40 05/26/16 04:00 40 05/26/16 03:52 91 05/26/16 02:41 89 30 40 05/26/16 00:53 83 28 40 05/26/16 00:00 97.4 85 30 121/65 100 Mechanical Ventilator 80 05/26/16 00:00 40 05/25/16 23:29 76 05/25/16 22:50 77 23 40 05/25/16 21:06 76 19 40 05/25/16 20:00 40 05/25/16 20:00 97.7 76 20 107/63 100 Mechanical Ventilator 80 05/25/16 20:00 76 05/25/16 18:49 79 19 40 05/25/16 18:02 106 112/57 05/25/16 17:10 106 22 40 05/25/16 16:00 116 05/25/16 16:00 98.4 114 23 124/75 100 Mechanical Ventilator 80 05/25/16 16:00 40 05/25/16 14:40 108 20 40 05/25/16 13:51 110 112/57 05/25/16 13:03 110 16 40 05/25/16 12:00 98.2 103 25 128/72 Mechanical Ventilator 40 05/25/16 11:50 40 05/25/16 10:37 101 25 40 05/25/16 09:02 99 25 40 05/25/16 08:00 97.5 94 28 112/57 Mechanical Ventilator 40 05/25/16 08:00 40 05/25/16 08:00 85 05/25/16 07:38 99 28 40 Height (Feet): 5 Height (Inches): 7.00 Weight (Pounds): 150 Microbiology Date/Time Source Procedure Growth Status 05/24/16 09:00 Blood Blood Culture - Preliminary NO GROWTH AFTER 24 HOURS Resulted 05/24/16 09:00 Blood Blood Culture - Preliminary NO GROWTH AFTER 24 HOURS Resulted 05/24/16 09:00 Urine,Clean Catch Urine Culture - Preliminary Yeast Species Resulted Current Medications Medications (Trade) Dose Ordered Sig/Hair Route PRN Reason Start Time Stop Time Status Last Admin Dose Admin Acetaminophen (Tylenol) 650 mg Q4H PRN ORAL fever 05/24/16 12:15 06/23/16 12:14 Albuterol/ Ipratropium 3 ml 3 ml Q4HRT PRN HHN Shortness of Breath 05/24/16 12:15 05/29/16 12:14 Cefepime HCl/ Dextrose (Maxipime/D5W) 110 ml @ 220 mls/hr Q12H IV 05/24/16 16:00 05/31/16 15:59 05/26/16 03:51 Furosemide (Lasix) 20 mg Q6H IV 05/25/16 14:00 06/24/16 13:59 05/26/16 01:46 Lactulose (Cephulac) 20 gm QID GT 05/24/16 18:00 06/23/16 17:59 05/25/16 22:16 Levetiracetam (Keppra) 1,500 mg DAILY GT 05/25/16 09:00 06/24/16 08:59 05/25/16 10:05 Lorazepam (Ativan 2mg/ml 1ml) 1 mg Q4H PRN IV For Anxiety 05/25/16 13:15 06/01/16 13:14 05/25/16 16:16 Morphine Sulfate (Morphine Sulfate) 2 mg Q4H PRN IVP Moderate Pain (Pain Scale 4-6) 05/24/16 12:15 05/31/16 12:14 05/25/16 13:51 Nitroglycerin (Ntg) 0.4 mg 5MIN PRN SL Prn Chest Pain 05/24/16 12:15 06/23/16 12:14 Ondansetron HCl (Zofran) 4 mg Q6H PRN IVP Nausea & Vomiting 05/24/16 12:15 06/23/16 12:14 Pantoprazole (Protonix) 40 mg DAILY IVP 05/24/16 14:30 06/23/16 14:29 05/25/16 10:06 Polyethylene Glycol (Miralax) 17 gm DAILYPRN PRN ORAL Constipation 05/24/16 12:15 06/23/16 12:14 Propranolol HCl (Inderal) 10 mg TID GT 05/25/16 13:00 06/24/16 12:59 05/25/16 18:02 Temazepam (Restoril) 15 mg HSPRN PRN ORAL Insomnia 05/24/16 12:15 05/31/16 12:14 Vitamin A/Vitamin D (A & D Oint) 1 applic EVERY 12 HOURS TOPIC 05/25/16 21:00 06/24/16 20:59 05/25/16 22:16 SHARRI RAMÍREZ M.D. May 26, 2016 06:31
[2016-05-26 06:48] LABS: BASOPHILS % (AUTO) 1.3 % (0.0-2.0); EOSINOPHILS % (AUTO) 8.2 % (0.0-3.0); LYMPHOCYTES % (AUTO) 9.3 % (20.0-45.0); MEAN CORPUSCULAR HEMOGLOBIN 33.2 PG (27.0-31.0); MEAN CORPUSCULAR HGB CONC 34.8 G/DL (32.0-36.0); MEAN CORPUSCULAR VOLUME 95 FL (80-99); MEAN PLATELET VOLUME 5.6 FL (6.5-10.1); MONOCYTES % (AUTO) 9.3 % (1.0-10.0); NEUTROPHILS % (AUTO) 71.8 % (45.0-75.0); PLATELET COUNT 149 K/UL (150-450); RED BLOOD COUNT 3.02 M/UL (4.70-6.10); RED CELL DISTRIBUTION WIDTH 15.9 % (11.6-14.8); WHITE BLOOD COUNT 5.6 K/UL (4.8-10.8)
[2016-05-26 07:12] LABS: ALANINE AMINOTRANSFERASE 19 U/L (3-41); ALBUMIN/GLOBULIN RATIO 0.7 (1.0-2.7); ANION GAP 17 (5-15); ASPARTATE AMINO TRANSFERASE 44 U/L (5-40); CALCIUM 8.4 mg/dL (8.6-10.2); CARBON DIOXIDE 22 mEQ/L (20-30); CHLORIDE 89 mEQ/L (98-107); CREATININE 0.3 mg/dL (0.7-1.2); CRP QUANT 1.5 mg/dL (< 0.5); GLOMERULAR FILTRATION RATE > 60 mL/min (>60); HEMOLYSIS 28; MAGNESIUM 1.7 mg/dL (1.7-2.5); PHOSPHORUS 3.6 mg/dL (2.5-4.8); POTASSIUM 4.3 mEQ/L (3.4-4.9); SODIUM 128 mEQ/L (135-145); TOTAL PROTEIN 6.3 g/dL (6.6-8.7); URIC ACID 3.3 mg/dL (3.0-7.5)
[2016-05-26 07:30] LABS: BILIRUBIN,DIRECT 0.4 mg/dL (0.1-0.3)
[2016-05-26 08:00] VITALS: BP 106/59
[2016-05-26] MEDS: Vitamin A&D Oint 2oz Tube TOPIC SCH ×2 (08:56→22:35)
[2016-05-26] MEDS: Lactulose 20gm/30ml UDC GT SCH ×4 (08:56→22:34)
[2016-05-26] MEDS: Pantoprazole Inj IVP SCH (08:57)
[2016-05-26] MEDS: levETIRAcetam 500mg/5ml Liquid GT SCH (08:57)
[2016-05-26] MEDS: Propranolol 10mg tab GT SCH ×3 (08:57→17:12)
[2016-05-26] MEDS: Morphine Sulfate 2mg/ml Inj IVP PRN (09:01)
[2016-05-26 12:00] VITALS: BP 110/59
--- NOTE | 2016-05-26 12:07 | Diagnostic Imaging Report ---
Indications: DYSPNEA Technique: Portable AP chest Findings: Comparison: None Suboptimal pulmonary inflation limits evaluation. Linear densities in both lung bases. Superimposed hazy opacities in both lung bases with costophrenic angle indistinctness. Heart size, pulmonary vasculature within normal limits. Aortic arch calcified. Tracheostomy tube in place. IMPRESSION: Pulmonary bibasal subsegmental atelectasis and probable superimposed pleural effusions Tracheostomy Aortosclerosis
--- NOTE | 2016-05-26 12:17 | Pulmonology Progress Note ---
Assessment/Plan Problems: (1) Chronic respiratory failure (2) Hyponatremia (3) Hematuria (4) Right bundle branch block (RBBB) (5) Cirrhosis Respiratory: monitor respiratory rate, adjust FIO2, CXR Cardiac: continue pressors, continue to monitor HR/BP Renal: F/U I&O, keep IV fluid, check electrolytes Infectious Disease: check cultures, continue antibiotics Gastrointestinal: continue feedings/current rate Endocrine: monitor blood sugar, check TSH, continue sliding scale insulin Hematologic: monitor H/H, transfuse if hgb<8.5 Neurologic: PRN Ativan, keep patient comfortable Prophylaxis: Heparin Notes Reviewed: children's aide, cardio, renal Discussed with: nurses, consultants, 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 case 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 Subjective ROS Limited/Unobtainable: No Allergies: Coded Allergies: No Known Allergies (Unverified , 05/24/16) Objective Last 24 Hour Vital Signs Date Time Temp Pulse Resp B/P Pulse Ox O2 Delivery O2 Flow Rate FiO2 05/26/16 10:40 75 26 40 05/26/16 09:05 75 23 40 05/26/16 08:57 78 116/79 05/26/16 08:00 40 05/26/16 08:00 73 05/26/16 08:00 98.2 76 24 106/59 100 Mechanical Ventilator 80 05/26/16 07:02 71 28 40 05/26/16 04:59 81 26 40 05/26/16 04:00 97.9 89 27 108/68 100 Mechanical Ventilator 80 05/26/16 04:00 40 05/26/16 03:52 91 05/26/16 02:41 89 30 40 05/26/16 00:53 83 28 40 05/26/16 00:00 97.4 85 30 121/65 100 Mechanical Ventilator 80 05/26/16 00:00 40 05/25/16 23:29 76 05/25/16 22:50 77 23 40 05/25/16 21:06 76 19 40 05/25/16 20:00 40 05/25/16 20:00 97.7 76 20 107/63 100 Mechanical Ventilator 80 05/25/16 20:00 76 05/25/16 18:49 79 19 40 05/25/16 18:02 106 112/57 05/25/16 17:10 106 22 40 05/25/16 16:00 116 05/25/16 16:00 98.4 114 23 124/75 100 Mechanical Ventilator 80 05/25/16 16:00 40 05/25/16 14:40 108 20 40 05/25/16 13:51 110 112/57 05/25/16 13:03 110 16 40 Intake and Output 05/25/16 05/26/16 19:00 07:00 Intake Total 1056 ml 740 ml Output Total 1000 ml 3900 ml Balance 56 ml -3160 ml Free Water 100 ml 40 ml IV Total 626 ml 380 ml Tube Feeding 270 ml 260 ml Other 60 ml 60 ml Output Urine Total 1000 ml 3100 ml Stool Total 800 ml # Bowel Movements 2 General Appearance: WD/WN HEENT: normocephalic, status post trach Respiratory/Chest: chest wall non-tender, lungs clear Cardiovascular: normal peripheral pulses, normal rate Abdomen: normal bowel sounds, soft, non tender Genitourinary: normal external genitalia Extremities: no clubbing 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 Complete 05/25/16 05:30 Urine,Clean Catch Urine Culture - Preliminary Resulted 05/24/16 09:00 Urine,Clean Catch Urine Culture - Final Sonja Tropicalis Complete 05/24/16 09:15 Rectum VRE Culture - Final Complete Laboratory Tests 05/26/16 06:25: White Blood Count 5.6, Red Blood Count 3.02L, Hemoglobin 10.0L, Hematocrit 28.7L , Mean Corpuscular Volume 95, Mean Corpuscular Hemoglobin 33.2H, Mean Corpuscular Hemoglobin Concent 34.8, Red Cell Distribution Width 15.9H, Platelet Count 149L, Mean Platelet Volume 5.6L, Neutrophils (%) (Auto) 71.8, Lymphocytes (%) (Auto) 9.3L, Monocytes (%) (Auto) 9.3, Eosinophils (%) (Auto) 8.2H, Basophils (%) (Auto) 1.3, Sodium Level 128L, Potassium Level 4.3, Chloride Level 89L, Carbon Dioxide Level 22, Anion Gap 17H, Blood Urea Nitrogen 6L, Creatinine 0.3L, Estimat Glomerular Filtration Rate > 60, Glucose Level 97, Uric Acid 3.3, Calcium Level 8.4L, Phosphorus Level 3.6, Magnesium Level 1.7, Total Bilirubin 1.5H, Direct Bilirubin 0.4H, Aspartate Amino Transf (AST/SGOT) 44H, Alanine Aminotransferase (ALT/SGPT) 19, Alkaline Phosphatase 176H, C- Reactive Protein, Quantitative 1.5H, Pro-B-Type Natriuretic Peptide 2262H, Total Protein 6.3L, Albumin 2.7L, Globulin 3.6, Albumin/Globulin Ratio 0.7L Current Medications Medications (Trade) Dose Ordered Sig/Hair Route PRN Reason Start Time Stop Time Status Last Admin Dose Admin Acetaminophen (Tylenol) 650 mg Q4H PRN ORAL fever 05/24/16 12:15 06/23/16 12:14 Albuterol/ Ipratropium 3 ml 3 ml Q4HRT PRN HHN Shortness of Breath 05/24/16 12:15 05/29/16 12:14 Cefepime HCl/ Dextrose (Maxipime/D5W) 110 ml @ 220 mls/hr Q12H IV 05/24/16 16:00 05/31/16 15:59 05/26/16 03:51 Fluconazole/ Sodium Chloride (Diflucan 200mg/ 100ml Premix) 100 ml @ 100 mls/hr Q24H IV 05/26/16 08:00 06/02/16 07:59 05/26/16 08:00 Furosemide (Lasix) 20 mg Q6H IV 05/25/16 14:00 06/24/16 13:59 05/26/16 08:56 Lactulose (Cephulac) 20 gm QID GT 05/24/16 18:00 06/23/16 17:59 05/26/16 08:56 Levetiracetam (Keppra) 1,500 mg DAILY GT 05/25/16 09:00 06/24/16 08:59 05/26/16 08:57 Lorazepam (Ativan 2mg/ml 1ml) 1 mg Q4H PRN IV For Anxiety 05/25/16 13:15 06/01/16 13:14 05/25/16 16:16 Morphine Sulfate (Morphine Sulfate) 2 mg Q4H PRN IVP Moderate Pain (Pain Scale 4-6) 05/24/16 12:15 05/31/16 12:14 05/26/16 09:01 Nitroglycerin (Ntg) 0.4 mg 5MIN PRN SL Prn Chest Pain 05/24/16 12:15 06/23/16 12:14 Ondansetron HCl (Zofran) 4 mg Q6H PRN IVP Nausea & Vomiting 05/24/16 12:15 06/23/16 12:14 05/26/16 08:56 Pantoprazole (Protonix) 40 mg DAILY IVP 05/24/16 14:30 06/23/16 14:29 05/26/16 08:57 Polyethylene Glycol (Miralax) 17 gm DAILYPRN PRN ORAL Constipation 05/24/16 12:15 06/23/16 12:14 Propranolol HCl (Inderal) 10 mg TID GT 05/25/16 13:00 06/24/16 12:59 05/26/16 08:57 Temazepam (Restoril) 15 mg HSPRN PRN ORAL Insomnia 05/24/16 12:15 05/31/16 12:14 Vitamin A/Vitamin D 1 applic 1 applic EVERY 12 HOURS TOPIC 05/25/16 21:00 06/24/16 20:59 05/26/16 08:56 DANTE HSIEH May 26, 2016 12:17
--- NOTE | 2016-05-26 13:00 | General Progress Note ---
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 Respiratory failure on Vent via Trach Suggestion: Slow saline infusion and slow diuresis monitor lytes avoid nephrotoxics as possible per orders Subjective ROS Limited/Unobtainable: No Constitutional: Reports: malaise Allergies: Coded Allergies: No Known Allergies (Unverified , 05/24/16) Objective Last 24 Hour Vital Signs Date Time Temp Pulse Resp B/P Pulse Ox O2 Delivery O2 Flow Rate FiO2 05/26/16 12:00 75 05/26/16 12:00 40 05/26/16 12:00 98.2 76 25 110/59 100 Mechanical Ventilator 80 05/26/16 10:40 75 26 40 05/26/16 09:05 75 23 40 05/26/16 08:57 78 116/79 05/26/16 08:00 40 05/26/16 08:00 73 05/26/16 08:00 98.2 76 24 106/59 100 Mechanical Ventilator 80 05/26/16 07:02 71 28 40 05/26/16 04:59 81 26 40 05/26/16 04:00 97.9 89 27 108/68 100 Mechanical Ventilator 80 05/26/16 04:00 40 05/26/16 03:52 91 05/26/16 02:41 89 30 40 05/26/16 00:53 83 28 40 05/26/16 00:00 97.4 85 30 121/65 100 Mechanical Ventilator 80 05/26/16 00:00 40 05/25/16 23:29 76 05/25/16 22:50 77 23 40 05/25/16 21:06 76 19 40 05/25/16 20:00 40 05/25/16 20:00 97.7 76 20 107/63 100 Mechanical Ventilator 80 05/25/16 20:00 76 05/25/16 18:49 79 19 40 05/25/16 18:02 106 112/57 05/25/16 17:10 106 22 40 05/25/16 16:00 116 05/25/16 16:00 98.4 114 23 124/75 100 Mechanical Ventilator 80 05/25/16 16:00 40 05/25/16 14:40 108 20 40 05/25/16 13:51 110 112/57 05/25/16 13:03 110 16 40 Intake and Output 05/25/16 05/26/16 19:00 07:00 Intake Total 1056 ml 740 ml Output Total 1000 ml 3900 ml Balance 56 ml -3160 ml Free Water 100 ml 40 ml IV Total 626 ml 380 ml Tube Feeding 270 ml 260 ml Other 60 ml 60 ml Output Urine Total 1000 ml 3100 ml Stool Total 800 ml # Bowel Movements 2 Laboratory Tests 05/26/16 06:25: White Blood Count 5.6, Red Blood Count 3.02L, Hemoglobin 10.0L, Hematocrit 28.7L , Mean Corpuscular Volume 95, Mean Corpuscular Hemoglobin 33.2H, Mean Corpuscular Hemoglobin Concent 34.8, Red Cell Distribution Width 15.9H, Platelet Count 149L, Mean Platelet Volume 5.6L, Neutrophils (%) (Auto) 71.8, Lymphocytes (%) (Auto) 9.3L, Monocytes (%) (Auto) 9.3, Eosinophils (%) (Auto) 8.2H, Basophils (%) (Auto) 1.3, Sodium Level 128L, Potassium Level 4.3, Chloride Level 89L, Carbon Dioxide Level 22, Anion Gap 17H, Blood Urea Nitrogen 6L, Creatinine 0.3L, Estimat Glomerular Filtration Rate > 60, Glucose Level 97, Uric Acid 3.3, Calcium Level 8.4L, Phosphorus Level 3.6, Magnesium Level 1.7, Total Bilirubin 1.5H, Direct Bilirubin 0.4H, Aspartate Amino Transf (AST/SGOT) 44H, Alanine Aminotransferase (ALT/SGPT) 19, Alkaline Phosphatase 176H, C- Reactive Protein, Quantitative 1.5H, Pro-B-Type Natriuretic Peptide 2262H, Total Protein 6.3L, Albumin 2.7L, Globulin 3.6, Albumin/Globulin Ratio 0.7L Height (Feet): 5 Height (Inches): 7.00 Weight (Pounds): 150 General Appearance: no apparent distress Cardiovascular: normal rate Respiratory/Chest: decreased breath sounds Abdomen: distended Objective other PE not changed GUS JOHNSON May 26, 2016 13:00
[2016-05-26] MEDS ORDERED: NaCl 3% 500ml 500 ML IV ONE (14:00)
[2016-05-26 16:00] VITALS: BP 104/57
[2016-05-26] MEDS ORDERED: Tubing IV Secondary IV ONE (18:51)
[2016-05-26] MEDS ORDERED: NS 275ml ONE (18:51)
[2016-05-26 20:00] VITALS: BP 116/87
[2016-05-27] VITALS: BP 104/57
[2016-05-27] MEDS: Morphine Sulfate 2mg/ml Inj IVP PRN (02:13)
[2016-05-27 04:00] VITALS: BP 100/55
[2016-05-27] MEDS: Cefepime HCl 2 GM in D5W 110 ML IV SCH ×2 (04:56→16:00)
[2016-05-27 05:34] LABS: BASOPHILS % (AUTO) 0.9 % (0.0-2.0); EOSINOPHILS % (AUTO) 11.7 % (0.0-3.0); LYMPHOCYTES % (AUTO) 9.9 % (20.0-45.0); MEAN CORPUSCULAR HEMOGLOBIN 33.4 PG (27.0-31.0); MEAN CORPUSCULAR HGB CONC 34.4 G/DL (32.0-36.0); MEAN CORPUSCULAR VOLUME 97 FL (80-99); MONOCYTES % (AUTO) 8.5 % (1.0-10.0); PLATELET COUNT 148 K/UL (150-450); RED BLOOD COUNT 3.05 M/UL (4.70-6.10); RED CELL DISTRIBUTION WIDTH 15.7 % (11.6-14.8); WHITE BLOOD COUNT 5.6 K/UL (4.8-10.8)
[2016-05-27] MEDS: LORazepam Inj 2mg/ml 1ml IV PRN (05:50)
[2016-05-27 06:15] LABS: ALANINE AMINOTRANSFERASE 19 U/L (3-41); CALCIUM 8.3 mg/dL (8.6-10.2); CHLORIDE 96 mEQ/L (98-107); POTASSIUM 3.6 mEQ/L (3.4-4.9); SODIUM 134 mEQ/L (135-145)
[2016-05-27 06:31] LABS: ALBUMIN/GLOBULIN RATIO 0.6 (1.0-2.7); ANION GAP 13 (5-15); ASPARTATE AMINO TRANSFERASE 35 U/L (5-40); CARBON DIOXIDE 25 mEQ/L (20-30); CREATININE 0.3 mg/dL (0.7-1.2); GLOMERULAR FILTRATION RATE > 60 mL/min (>60); HEMOLYSIS 1; MAGNESIUM 1.6 mg/dL (1.7-2.5); PHOSPHORUS 3.2 mg/dL (2.5-4.8); TOTAL PROTEIN 6.6 g/dL (6.6-8.7)
[2016-05-27 06:53] LABS: URIC ACID 3.5 mg/dL (3.0-7.5)
[2016-05-27 07:07] LABS: BILIRUBIN,DIRECT 0.4 mg/dL (0.1-0.3)
[2016-05-27 08:00] VITALS: BP 95/55
[2016-05-27] MEDS: levETIRAcetam 500mg/5ml Liquid GT SCH (08:03)
[2016-05-27] MEDS: Lactulose 20gm/30ml UDC GT SCH ×4 (08:03→20:09)
[2016-05-27] MEDS: Pantoprazole Inj IVP SCH (08:03)
[2016-05-27] MEDS: Vitamin A&D Oint 2oz Tube TOPIC SCH ×2 (08:04→20:09)
[2016-05-27] MEDS: Propranolol 10mg tab GT SCH ×3 (08:04→18:31)
--- NOTE | 2016-05-27 10:57 | Infectious Diseases Prog Note ---
Assessment/Plan Assessment/Plan ASSESSMENT: 55 y/o male with: // Gross hematuria SP cervantes placement in setting of probable UTI - UCx : Sonja - CT A/P: No calculus is identified within either kidney, along the expected course of the ureters or within the urinary bladder. There is no evidence of hydronephrosis or asymmetric perirenal inflammatory change. The urinary bladder is decompressed with an indwelling Cervantes catheter. Air pockets within the urinary bladder likely reflect sequela of recent instrumentation/ catheterization. // Unstageable sacral debuitus POA, not grossly infected // Afebrile without leukocytosis // Diarrhea, C diff : neg // Cirrhosis // Hyponatremia / electrolyte imbalance // Chronic VDRF SP trach, PEG // h/o CVA // [place] resident // NKDA // Full Code PLAN: - continue empiric cefepime d# 4 / 5 , and Diflucan d# 2 / 14 ( 05/25 SP IV vancomycin d# 2) - f/u cultures, - monitor CBC, temperatures - monitor BMP - vent support, trach care, aspiration precaution Subjective Constitutional: Denies: anorexia, chills, drenching sweats, fatigue, fever, no symptoms, other Allergies: Coded Allergies: No Known Allergies (Unverified , 05/24/16) Objective Vital Signs Last 24 Hour Vital Signs Date Time Temp Pulse Resp B/P Pulse Ox O2 Delivery O2 Flow Rate FiO2 05/27/16 09:17 84 28 40 05/27/16 08:04 78 100/55 05/27/16 08:00 40 05/27/16 08:00 97.3 76 20 95/55 100 Mechanical Ventilator 40 05/27/16 06:49 82 23 40 05/27/16 05:27 82 25 80 05/27/16 04:00 77 05/27/16 04:00 98.1 75 18 100/55 100 Mechanical Ventilator 40 05/27/16 04:00 40 05/27/16 03:05 71 21 80 05/27/16 00:47 77 24 80 05/27/16 00:00 71 05/27/16 00:00 97.4 83 18 104/57 100 Mechanical Ventilator 05/27/16 00:00 40 05/26/16 23:11 77 25 80 05/26/16 21:30 85 27 80 05/26/16 20:00 82 05/26/16 20:00 40 05/26/16 20:00 96.4 82 20 116/87 100 Mechanical Ventilator 80 05/26/16 18:44 80 27 80 05/26/16 17:12 77 107/57 05/26/16 17:11 82 27 80 05/26/16 17:00 40 05/26/16 16:00 80 05/26/16 16:00 97.7 77 20 104/57 100 Mechanical Ventilator 80 05/26/16 16:00 82 05/26/16 14:38 71 23 80 05/26/16 13:00 78 120/54 05/26/16 12:43 77 24 80 05/26/16 12:00 75 05/26/16 12:00 40 05/26/16 12:00 98.2 76 25 110/59 100 Mechanical Ventilator 80 Height (Feet): 5 Height (Inches): 7.00 Weight (Pounds): 150 HEENT: atraumatic Respiratory/Chest: lungs clear Cardiovascular: normal rate Abdomen: soft, non tender Microbiology Date/Time Source Procedure Growth Status 05/26/16 14:00 Stool Clostridium difficile Toxin Assay - Final Complete 05/25/16 05:30 Urine,Clean Catch Urine Culture - Preliminary YEAST Resulted Laboratory Tests Test 05/27/16 03:40 White Blood Count 5.6 K/UL (4.8-10.8) Red Blood Count 3.05 M/UL (4.70-6.10) L Hemoglobin 10.2 G/DL (14.2-18.0) L Hematocrit 29.7 % (42.0-52.0) L Mean Corpuscular Volume 97 FL (80-99) Mean Corpuscular Hemoglobin 33.4 PG (27.0-31.0) H Mean Corpuscular Hemoglobin Concent 34.4 G/DL (32.0-36.0) Red Cell Distribution Width 15.7 % (11.6-14.8) H Platelet Count 148 K/UL (150-450) L Mean Platelet Volume 6.0 FL (6.5-10.1) L Neutrophils (%) (Auto) 69.0 % (45.0-75.0) Lymphocytes (%) (Auto) 9.9 % (20.0-45.0) L Monocytes (%) (Auto) 8.5 % (1.0-10.0) Eosinophils (%) (Auto) 11.7 % (0.0-3.0) H Basophils (%) (Auto) 0.9 % (0.0-2.0) Sodium Level 134 mEQ/L (135-145) L Potassium Level 3.6 mEQ/L (3.4-4.9) Chloride Level 96 mEQ/L (98-107) L Carbon Dioxide Level 25 mEQ/L (20-30) Anion Gap 13 (5-15) Blood Urea Nitrogen 7 mg/dL (7-23) Creatinine 0.3 mg/dL (0.7-1.2) L Estimat Glomerular Filtration Rate > 60 mL/min (>60) Glucose Level 115 mg/dL (74-106) H Uric Acid 3.5 mg/dL (3.0-7.5) Calcium Level 8.3 mg/dL (8.6-10.2) L Phosphorus Level 3.2 mg/dL (2.5-4.8) Magnesium Level 1.6 mg/dL (1.7-2.5) L Total Bilirubin 1.3 mg/dL (0.0-1.2) H Direct Bilirubin 0.4 mg/dL (0.1-0.3) H Aspartate Amino Transf (AST/SGOT) 35 U/L (5-40) Alanine Aminotransferase (ALT/SGPT) 19 U/L (3-41) Alkaline Phosphatase 183 U/L (40-129) H Pro-B-Type Natriuretic Peptide 2308 pg/mL (0-125) H Total Protein 6.6 g/dL (6.6-8.7) Albumin 2.6 g/dL (3.5-5.2) L Globulin 4.0 g/dL Albumin/Globulin Ratio 0.6 (1.0-2.7) L Current Medications Medications (Trade) Dose Ordered Sig/Hair Route PRN Reason Start Time Stop Time Status Last Admin Dose Admin Acetaminophen (Tylenol) 650 mg Q4H PRN ORAL fever 05/24/16 12:15 06/23/16 12:14 Albuterol/ Ipratropium 3 ml 3 ml Q4HRT PRN HHN Shortness of Breath 05/24/16 12:15 05/29/16 12:14 Cefepime HCl/ Dextrose (Maxipime/D5W) 110 ml @ 220 mls/hr Q12H IV 05/24/16 16:00 05/31/16 15:59 05/27/16 04:56 Fluconazole/ Sodium Chloride 100 ml @ 100 mls/hr Q24H IV 05/26/16 08:00 06/02/16 07:59 05/27/16 08:00 Furosemide (Lasix) 20 mg Q6H IV 05/25/16 14:00 06/24/16 13:59 05/27/16 08:03 Lactulose (Cephulac) 20 gm QID GT 05/24/16 18:00 06/23/16 17:59 05/27/16 08:03 Levetiracetam (Keppra) 1,500 mg DAILY GT 05/25/16 09:00 06/24/16 08:59 05/27/16 08:03 Lorazepam (Ativan 2mg/ml 1ml) 1 mg Q4H PRN IV For Anxiety 05/25/16 13:15 06/01/16 13:14 05/27/16 05:50 Magnesium Sulfate (Magnesium Sulfate 1gm/100ml) 100 ml @ 100 mls/hr Q1H IVPB 05/27/16 10:00 05/27/16 13:59 05/27/16 10:14 Morphine Sulfate (Morphine Sulfate) 2 mg Q4H PRN IVP Moderate Pain (Pain Scale 4-6) 05/24/16 12:15 05/31/16 12:14 05/27/16 02:13 Nitroglycerin (Ntg) 0.4 mg 5MIN PRN SL Prn Chest Pain 05/24/16 12:15 06/23/16 12:14 Ondansetron HCl (Zofran) 4 mg Q6H PRN IVP Nausea & Vomiting 05/24/16 12:15 06/23/16 12:14 05/26/16 08:56 Pantoprazole (Protonix) 40 mg DAILY IVP 05/24/16 14:30 06/23/16 14:29 05/27/16 08:03 Polyethylene Glycol (Miralax) 17 gm DAILYPRN PRN ORAL Constipation 05/24/16 12:15 06/23/16 12:14 Propranolol HCl (Inderal) 10 mg TID GT 05/25/16 13:00 06/24/16 12:59 05/27/16 08:04 Temazepam (Restoril) 15 mg HSPRN PRN ORAL Insomnia 05/24/16 12:15 05/31/16 12:14 Vitamin A/Vitamin D 1 applic 1 applic EVERY 12 HOURS TOPIC 05/25/16 21:00 06/24/16 20:59 05/27/16 08:04 SHARRI RAMÍREZ M.D. May 27, 2016 10:57
--- NOTE | 2016-05-27 11:39 | Pulmonology Progress Note ---
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 Subjective ROS Limited/Unobtainable: Yes Allergies: Coded Allergies: No Known Allergies (Unverified , 05/24/16) Objective Last 24 Hour Vital Signs Date Time Temp Pulse Resp B/P Pulse Ox O2 Delivery O2 Flow Rate FiO2 05/27/16 11:18 77 29 40 05/27/16 09:17 84 28 40 05/27/16 08:04 78 100/55 05/27/16 08:00 40 05/27/16 08:00 97.3 76 20 95/55 100 Mechanical Ventilator 40 05/27/16 06:49 82 23 40 05/27/16 05:27 82 25 80 05/27/16 04:00 77 05/27/16 04:00 98.1 75 18 100/55 100 Mechanical Ventilator 40 05/27/16 04:00 40 05/27/16 03:05 71 21 80 05/27/16 00:47 77 24 80 05/27/16 00:00 71 05/27/16 00:00 97.4 83 18 104/57 100 Mechanical Ventilator 05/27/16 00:00 40 05/26/16 23:11 77 25 80 05/26/16 21:30 85 27 80 05/26/16 20:00 82 05/26/16 20:00 40 05/26/16 20:00 96.4 82 20 116/87 100 Mechanical Ventilator 80 05/26/16 18:44 80 27 80 05/26/16 17:12 77 107/57 05/26/16 17:11 82 27 80 05/26/16 17:00 40 05/26/16 16:00 80 05/26/16 16:00 97.7 77 20 104/57 100 Mechanical Ventilator 80 05/26/16 16:00 82 05/26/16 14:38 71 23 80 05/26/16 13:00 78 120/54 05/26/16 12:43 77 24 80 05/26/16 12:00 75 05/26/16 12:00 40 05/26/16 12:00 98.2 76 25 110/59 100 Mechanical Ventilator 80 Intake and Output 05/26/16 05/27/16 19:00 07:00 Intake Total 1040 ml 900 ml Output Total 1350 ml 1800 ml Balance -310 ml -900 ml Free Water 170 ml 100 ml IV Total 355 ml 440 ml Tube Feeding 515 ml 360 ml Output Urine Total 1300 ml 1200 ml Stool Total 50 ml 600 ml General Appearance: WD/WN HEENT: normocephalic, atraumatic Respiratory/Chest: chest wall non-tender, lungs clear Cardiovascular: normal peripheral pulses, normal rate Abdomen: normal bowel sounds, soft, non tender Extremities: no cyanosis Skin: no rash 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, no motor/sensory deficits, normal mood/affect Microbiology Date/Time Source Procedure Growth Status 05/26/16 14:00 Stool Clostridium difficile Toxin Assay - Final Complete 05/25/16 05:30 Urine,Clean Catch Urine Culture - Preliminary YEAST Resulted Laboratory Tests 05/27/16 03:40: White Blood Count 5.6, Red Blood Count 3.05L, Hemoglobin 10.2L, Hematocrit 29.7L , Mean Corpuscular Volume 97, Mean Corpuscular Hemoglobin 33.4H, Mean Corpuscular Hemoglobin Concent 34.4, Red Cell Distribution Width 15.7H, Platelet Count 148L, Mean Platelet Volume 6.0L, Neutrophils (%) (Auto) 69.0, Lymphocytes (%) (Auto) 9.9L, Monocytes (%) (Auto) 8.5, Eosinophils (%) (Auto) 11.7H, Basophils (%) (Auto) 0.9, Sodium Level 134L, Potassium Level 3.6, Chloride Level 96L, Carbon Dioxide Level 25, Anion Gap 13, Blood Urea Nitrogen 7 , Creatinine 0.3L, Estimat Glomerular Filtration Rate > 60, Glucose Level 115H, Uric Acid 3.5, Calcium Level 8.3L, Phosphorus Level 3.2, Magnesium Level 1.6L, Total Bilirubin 1.3H, Direct Bilirubin 0.4H, Aspartate Amino Transf (AST/SGOT) 35, Alanine Aminotransferase (ALT/SGPT) 19, Alkaline Phosphatase 183H, Pro-B- Type Natriuretic Peptide 2308H, Total Protein 6.6, Albumin 2.6L, Globulin 4.0, Albumin/Globulin Ratio 0.6L Current Medications Medications (Trade) Dose Ordered Sig/Hair Route PRN Reason Start Time Stop Time Status Last Admin Dose Admin Acetaminophen (Tylenol) 650 mg Q4H PRN ORAL fever 05/24/16 12:15 06/23/16 12:14 Albuterol/ Ipratropium 3 ml 3 ml Q4HRT PRN HHN Shortness of Breath 05/24/16 12:15 05/29/16 12:14 Cefepime HCl/ Dextrose (Maxipime/D5W) 110 ml @ 220 mls/hr Q12H IV 05/24/16 16:00 05/31/16 15:59 05/27/16 04:56 Fluconazole/ Sodium Chloride 100 ml @ 100 mls/hr Q24H IV 05/26/16 08:00 06/02/16 07:59 05/27/16 08:00 Furosemide (Lasix) 20 mg Q6H IV 05/25/16 14:00 06/24/16 13:59 05/27/16 08:03 Lactulose (Cephulac) 20 gm QID GT 05/24/16 18:00 06/23/16 17:59 05/27/16 08:03 Levetiracetam (Keppra) 1,500 mg DAILY GT 05/25/16 09:00 06/24/16 08:59 05/27/16 08:03 Lorazepam (Ativan 2mg/ml 1ml) 1 mg Q4H PRN IV For Anxiety 05/25/16 13:15 06/01/16 13:14 05/27/16 05:50 Magnesium Sulfate (Magnesium Sulfate 1gm/100ml) 100 ml @ 100 mls/hr Q1H IVPB 05/27/16 10:00 05/27/16 13:59 05/27/16 10:14 Morphine Sulfate (Morphine Sulfate) 2 mg Q4H PRN IVP Moderate Pain (Pain Scale 4-6) 05/24/16 12:15 05/31/16 12:14 05/27/16 02:13 Nitroglycerin (Ntg) 0.4 mg 5MIN PRN SL Prn Chest Pain 05/24/16 12:15 06/23/16 12:14 Ondansetron HCl (Zofran) 4 mg Q6H PRN IVP Nausea & Vomiting 05/24/16 12:15 06/23/16 12:14 05/26/16 08:56 Pantoprazole (Protonix) 40 mg DAILY IVP 05/24/16 14:30 06/23/16 14:29 05/27/16 08:03 Polyethylene Glycol (Miralax) 17 gm DAILYPRN PRN ORAL Constipation 05/24/16 12:15 06/23/16 12:14 Propranolol HCl (Inderal) 10 mg TID GT 05/25/16 13:00 06/24/16 12:59 05/27/16 08:04 Temazepam (Restoril) 15 mg HSPRN PRN ORAL Insomnia 05/24/16 12:15 05/31/16 12:14 Vitamin A/Vitamin D 1 applic 1 applic EVERY 12 HOURS TOPIC 05/25/16 21:00 06/24/16 20:59 05/27/16 08:04 DANTE HSIEH May 27, 2016 11:39
--- NOTE | 2016-05-27 13:50 | General Progress Note ---
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 Respiratory failure on Vent via Trach Suggestion: Slow saline infusion and slow diuresis monitor lytes avoid nephrotoxics as possible per orders Subjective ROS Limited/Unobtainable: No Constitutional: Reports: malaise Allergies: Coded Allergies: No Known Allergies (Unverified , 05/24/16) Objective Last 24 Hour Vital Signs Date Time Temp Pulse Resp B/P Pulse Ox O2 Delivery O2 Flow Rate FiO2 05/27/16 13:48 73 103/48 05/27/16 13:11 78 24 40 05/27/16 11:18 77 29 40 05/27/16 09:17 84 28 40 05/27/16 08:04 78 100/55 05/27/16 08:00 75 05/27/16 08:00 40 05/27/16 08:00 97.3 76 20 95/55 100 Mechanical Ventilator 40 05/27/16 06:49 82 23 40 05/27/16 05:27 82 25 80 05/27/16 04:00 77 05/27/16 04:00 98.1 75 18 100/55 100 Mechanical Ventilator 40 05/27/16 04:00 40 05/27/16 03:05 71 21 80 05/27/16 00:47 77 24 80 05/27/16 00:00 71 05/27/16 00:00 97.4 83 18 104/57 100 Mechanical Ventilator 05/27/16 00:00 40 05/26/16 23:11 77 25 80 05/26/16 21:30 85 27 80 05/26/16 20:00 82 05/26/16 20:00 40 05/26/16 20:00 96.4 82 20 116/87 100 Mechanical Ventilator 80 05/26/16 18:44 80 27 80 05/26/16 17:12 77 107/57 05/26/16 17:11 82 27 80 05/26/16 17:00 40 05/26/16 16:00 80 05/26/16 16:00 97.7 77 20 104/57 100 Mechanical Ventilator 80 05/26/16 16:00 82 3/28/17 14:38 71 23 80 Intake and Output 05/26/16 05/27/16 19:00 07:00 Intake Total 1040 ml 900 ml Output Total 1350 ml 1800 ml Balance -310 ml -900 ml Free Water 170 ml 100 ml IV Total 355 ml 440 ml Tube Feeding 515 ml 360 ml Output Urine Total 1300 ml 1200 ml Stool Total 50 ml 600 ml Laboratory Tests 05/27/16 03:40: White Blood Count 5.6, Red Blood Count 3.05L, Hemoglobin 10.2L, Hematocrit 29.7L , Mean Corpuscular Volume 97, Mean Corpuscular Hemoglobin 33.4H, Mean Corpuscular Hemoglobin Concent 34.4, Red Cell Distribution Width 15.7H, Platelet Count 148L, Mean Platelet Volume 6.0L, Neutrophils (%) (Auto) 69.0, Lymphocytes (%) (Auto) 9.9L, Monocytes (%) (Auto) 8.5, Eosinophils (%) (Auto) 11.7H, Basophils (%) (Auto) 0.9, Sodium Level 134L, Potassium Level 3.6, Chloride Level 96L, Carbon Dioxide Level 25, Anion Gap 13, Blood Urea Nitrogen 7 , Creatinine 0.3L, Estimat Glomerular Filtration Rate > 60, Glucose Level 115H, Uric Acid 3.5, Calcium Level 8.3L, Phosphorus Level 3.2, Magnesium Level 1.6L, Total Bilirubin 1.3H, Direct Bilirubin 0.4H, Aspartate Amino Transf (AST/SGOT) 35, Alanine Aminotransferase (ALT/SGPT) 19, Alkaline Phosphatase 183H, Pro-B- Type Natriuretic Peptide 2308H, Total Protein 6.6, Albumin 2.6L, Globulin 4.0, Albumin/Globulin Ratio 0.6L Height (Feet): 5 Height (Inches): 7.00 Weight (Pounds): 150 General Appearance: no apparent distress Cardiovascular: normal rate Respiratory/Chest: decreased breath sounds Abdomen: distended Objective other PE not changed GUS JOHNSON May 27, 2016 13:50
[2016-05-27 16:00] VITALS: BP 106/52
[2016-05-27 20:00] VITALS: BP 108/58
[2016-05-27] MEDS ORDERED: NS 275ml ONE (20:33)
[2016-05-27] MEDS ORDERED: Tubing IV Secondary IV ONE (20:33)
[2016-05-27 23:56] VITALS: BP 112/64
[2016-05-28] MEDS: Cefepime HCl 2 GM in D5W 110 ML IV SCH ×2 (03:34→16:32)
[2016-05-28 04:00] VITALS: BP 112/64
[2016-05-28 08:00] VITALS: BP 110/61
[2016-05-28] MEDS ORDERED: Acetaminophen 650mg/20.3ml GT PRN (08:15)
--- NOTE | 2016-05-28 08:32 | Infectious Diseases Prog Note ---
Assessment/Plan Assessment/Plan ASSESSMENT: 55 y/o male with: // Gross hematuria SP cervantes placement in setting of probable UTI - UCx : Sonja - CT A/P: No calculus is identified within either kidney, along the expected course of the ureters or within the urinary bladder. There is no evidence of hydronephrosis or asymmetric perirenal inflammatory change. The urinary bladder is decompressed with an indwelling Cervantes catheter. Air pockets within the urinary bladder likely reflect sequela of recent instrumentation/ catheterization. // Unstageable sacral debuitus POA, not grossly infected // Afebrile without leukocytosis // Diarrhea, C diff : neg // Cirrhosis // Hyponatremia / electrolyte imbalance // Chronic VDRF SP trach, PEG // h/o CVA // [facility] resident // NKDA // Full Code PLAN: - continue Diflucan d# 3 / and DC cefepime d# 5 / 5 ( 05/25 SP IV vancomycin d# 2) - f/u cultures ( Ur ) - monitor CBC, temperatures - monitor BMP - vent support, trach care, aspiration precaution Subjective Constitutional: Denies: anorexia, chills, drenching sweats, fatigue, fever, no symptoms, other Allergies: Coded Allergies: No Known Allergies (Unverified , 05/24/16) Subjective HU again Objective Vital Signs Last 24 Hour Vital Signs Date Time Temp Pulse Resp B/P Pulse Ox O2 Delivery O2 Flow Rate FiO2 05/28/16 07:19 81 25 40 05/28/16 04:50 78 26 40 05/28/16 04:00 76 05/28/16 04:00 96.8 82 19 112/64 100 Trach Collar 05/28/16 04:00 96.8 82 19 112/64 100 Trach Collar 05/28/16 04:00 40 05/28/16 03:10 73 25 40 05/28/16 01:08 76 26 40 05/28/16 00:00 73 05/28/16 00:00 40 05/27/16 23:56 96.8 82 19 112/64 100 Trach Collar 05/27/16 22:45 68 18 40 05/27/16 21:15 77 22 40 05/27/16 20:00 76 05/27/16 20:00 96.7 88 20 108/58 100 Trach Collar 05/27/16 20:00 40 05/27/16 19:00 74 26 40 05/27/16 18:31 86 106/52 05/27/16 16:38 80 30 40 05/27/16 16:00 96.6 86 20 106/52 100 Trach Collar 05/27/16 16:00 40 05/27/16 16:00 87 05/27/16 15:05 86 30 40 05/27/16 13:48 73 103/48 05/27/16 13:11 78 24 40 05/27/16 12:00 40 05/27/16 12:00 71 05/27/16 11:18 77 29 40 05/27/16 09:17 84 28 40 Height (Feet): 5 Height (Inches): 7.00 Weight (Pounds): 150 HEENT: anicteric Respiratory/Chest: normal breath sounds Cardiovascular: normal rate Abdomen: soft, non tender Microbiology Date/Time Source Procedure Growth Status 05/26/16 14:00 Stool Clostridium difficile Toxin Assay - Final Complete Current Medications Medications (Trade) Dose Ordered Sig/Hair Route PRN Reason Start Time Stop Time Status Last Admin Dose Admin Acetaminophen (Tylenol) 650 mg Q4H PRN GT fever 05/28/16 08:15 06/27/16 08:14 Albuterol/ Ipratropium 3 ml 3 ml Q4HRT PRN HHN Shortness of Breath 05/24/16 12:15 05/29/16 12:14 Cefepime HCl/ Dextrose (Maxipime/D5W) 110 ml @ 220 mls/hr Q12H IV 05/24/16 16:00 05/31/16 15:59 05/28/16 03:34 Fluconazole (Diflucan) 200 mg DAILY GT 05/29/16 09:00 06/02/16 08:59 Fluconazole/ Sodium Chloride (Diflucan 200mg/ 100ml Premix) 100 ml @ 100 mls/hr Q24H IV 05/26/16 08:00 05/28/16 10:00 05/27/16 08:00 Lactulose (Cephulac) 20 gm QID GT 05/24/16 18:00 06/23/16 17:59 05/27/16 20:09 Levetiracetam (Keppra) 1,500 mg DAILY GT 05/25/16 09:00 06/24/16 08:59 05/27/16 08:03 Lorazepam (Ativan 2mg/ml 1ml) 1 mg Q4H PRN IV For Anxiety 05/25/16 13:15 06/01/16 13:14 05/27/16 05:50 Morphine Sulfate (Morphine Sulfate) 2 mg Q4H PRN IVP Moderate Pain (Pain Scale 4-6) 05/24/16 12:15 05/31/16 12:14 05/27/16 02:13 Nitroglycerin (Ntg) 0.4 mg 5MIN PRN SL Prn Chest Pain 05/24/16 12:15 06/23/16 12:14 Ondansetron HCl (Zofran) 4 mg Q6H PRN IVP Nausea & Vomiting 05/24/16 12:15 06/23/16 12:14 05/26/16 08:56 Pantoprazole (Protonix) 40 mg DAILY IVP 05/24/16 14:30 06/23/16 14:29 05/27/16 08:03 Polyethylene Glycol (Miralax) 17 gm DAILYPRN PRN ORAL Constipation 05/24/16 12:15 06/23/16 12:14 Propranolol HCl (Inderal) 10 mg TID GT 05/25/16 13:00 06/24/16 12:59 05/27/16 18:31 Temazepam (Restoril) 15 mg HSPRN PRN ORAL Insomnia 05/24/16 12:15 05/31/16 12:14 Vitamin A/Vitamin D 1 applic 1 applic EVERY 12 HOURS TOPIC 05/25/16 21:00 06/24/16 20:59 05/27/16 20:09 SHARRI RAMÍREZ M.D. May 28, 2016 08:32
[2016-05-28] MEDS: Pantoprazole Inj IVP SCH (09:25)
[2016-05-28] MEDS: Propranolol 10mg tab GT SCH ×3 (09:25→17:37)
[2016-05-28] MEDS: Vitamin A&D Oint 2oz Tube TOPIC SCH ×2 (09:25→20:09)
[2016-05-28] MEDS: levETIRAcetam 500mg/5ml Liquid GT SCH (09:25)
--- NOTE | 2016-05-28 11:17 | Pulmonology Progress Note ---
Assessment/Plan Problems: (1) Chronic respiratory failure (2) Hyponatremia (3) Hematuria (4) Right bundle branch block (RBBB) (5) Cirrhosis Respiratory: monitor respiratory rate, adjust FIO2, CXR Cardiac: continue pressors, continue to monitor HR/BP Renal: check electrolytes Infectious Disease: check cultures, continue antibiotics Gastrointestinal: hold feedings Endocrine: monitor blood sugar, check TSH, check HgA1C, continue sliding scale insulin Hematologic: monitor H/H, transfuse if hgb<8.5 Neurologic: PRN Morphine, keep patient comfortable Affect: PRN ativan Prophylaxis: Protonix, Heparin Notes Reviewed: criminalist technician, renal Discussed with: nurses, consultants, test case developer Subjective ROS Limited/Unobtainable: Yes Constitutional: Reports: no symptoms Allergies: Coded Allergies: No Known Allergies (Unverified , 05/24/16) Objective Last 24 Hour Vital Signs Date Time Temp Pulse Resp B/P Pulse Ox O2 Delivery O2 Flow Rate FiO2 05/28/16 11:08 75 26 40 05/28/16 09:25 86 110/61 05/28/16 09:20 80 28 40 05/28/16 08:00 40 05/28/16 08:00 97.2 86 26 110/61 100 Mechanical Ventilator 40 05/28/16 08:00 79 05/28/16 07:19 81 25 40 05/28/16 04:50 78 26 40 05/28/16 04:00 76 05/28/16 04:00 96.8 82 19 112/64 100 Trach Collar 05/28/16 04:00 96.8 82 19 112/64 100 Trach Collar 05/28/16 04:00 40 05/28/16 03:10 73 25 40 05/28/16 01:08 76 26 40 05/28/16 00:00 73 05/28/16 00:00 40 05/27/16 23:56 96.8 82 19 112/64 100 Trach Collar 05/27/16 22:45 68 18 40 05/27/16 21:15 77 22 40 05/27/16 20:00 76 05/27/16 20:00 96.7 88 20 108/58 100 Trach Collar 05/27/16 20:00 40 05/27/16 19:00 74 26 40 05/27/16 18:31 86 106/52 3/29/17 16:38 80 30 40 05/27/16 16:00 96.6 86 20 106/52 100 Trach Collar 05/27/16 16:00 40 05/27/16 16:00 87 05/27/16 15:05 86 30 40 05/27/16 13:48 73 103/48 05/27/16 13:11 78 24 40 05/27/16 12:00 40 05/27/16 12:00 71 05/27/16 11:18 77 29 40 Intake and Output 05/27/16 05/28/16 19:00 07:00 Intake Total 640 ml 580 ml Output Total 700 ml 1075 ml Balance -60 ml -495 ml Free Water 40 ml IV Total 100 ml Tube Feeding 540 ml 540 ml Output Urine Total 500 ml 725 ml Stool Total 200 ml 350 ml # Voids 1 General Appearance: WD/WN HEENT: normocephalic Respiratory/Chest: chest wall non-tender, normal breath sounds Cardiovascular: normal peripheral pulses, normal rate Abdomen: normal bowel sounds, soft, non tender Genitourinary: normal external genitalia Extremities: no cyanosis Skin: no lesions, no ulcers Microbiology Date/Time Source Procedure Growth Status 05/26/16 14:00 Stool Clostridium difficile Toxin Assay - Final Complete Laboratory Tests 05/28/16 09:30: Ammonia [Pending] Current Medications Medications (Trade) Dose Ordered Sig/Hair Route PRN Reason Start Time Stop Time Status Last Admin Dose Admin Acetaminophen (Tylenol) 650 mg Q4H PRN GT fever 05/28/16 08:15 06/27/16 08:14 Albuterol/ Ipratropium 3 ml 3 ml Q4HRT PRN HHN Shortness of Breath 05/24/16 12:15 05/29/16 12:14 Cefepime HCl/ Dextrose (Maxipime/D5W) 110 ml @ 220 mls/hr Q12H IV 05/24/16 16:00 05/28/16 23:00 05/28/16 03:34 Fluconazole (Diflucan) 200 mg DAILY GT 05/29/16 09:00 06/02/16 08:59 Lactulose (Cephulac) 20 gm QID GT 05/24/16 18:00 06/23/16 17:59 05/27/16 20:09 Levetiracetam (Keppra) 1,500 mg DAILY GT 05/25/16 09:00 06/24/16 08:59 05/28/16 09:25 Lorazepam (Ativan 2mg/ml 1ml) 1 mg Q4H PRN IV For Anxiety 05/25/16 13:15 06/01/16 13:14 05/27/16 05:50 Morphine Sulfate (Morphine Sulfate) 2 mg Q4H PRN IVP Moderate Pain (Pain Scale 4-6) 05/24/16 12:15 05/31/16 12:14 05/27/16 02:13 Nitroglycerin (Ntg) 0.4 mg 5MIN PRN SL Prn Chest Pain 05/24/16 12:15 06/23/16 12:14 Ondansetron HCl (Zofran) 4 mg Q6H PRN IVP Nausea & Vomiting 05/24/16 12:15 06/23/16 12:14 05/26/16 08:56 Pantoprazole (Protonix) 40 mg DAILY IVP 05/24/16 14:30 06/23/16 14:29 05/28/16 09:25 Polyethylene Glycol (Miralax) 17 gm DAILYPRN PRN ORAL Constipation 05/24/16 12:15 06/23/16 12:14 Propranolol HCl (Inderal) 10 mg TID GT 05/25/16 13:00 06/24/16 12:59 05/28/16 09:25 Temazepam (Restoril) 15 mg HSPRN PRN ORAL Insomnia 05/24/16 12:15 05/31/16 12:14 Vitamin A/Vitamin D (A & D Oint) 1 applic EVERY 12 HOURS TOPIC 05/25/16 21:00 06/24/16 20:59 05/28/16 09:25 DANTE HSIEH May 28, 2016 11:17
[2016-05-28 12:00] VITALS: BP 107/57
[2016-05-28] MEDS: Lactulose 20gm/30ml UDC GT SCH ×4 (12:00→20:09)
--- NOTE | 2016-05-28 13:56 | General Progress Note ---
Assessment/Plan Status: stable Assessment/Plan Hyponatremia, likely due to Edematous state and Ascitis due to underlying Cirrhosis IMPROVING Hematuria reason for ER referral Right bundle branch block (RBBB) Colon catheter problem Cirrhosis CVA right javi- OLD Respiratory failure on Vent via Trach Suggestion: no chemistries today- Slow saline infusion and slow diuresis when needed for low Na monitor lytes avoid nephrotoxics as possible per orders Subjective ROS Limited/Unobtainable: No Constitutional: Reports: malaise Allergies: Coded Allergies: No Known Allergies (Unverified , 05/24/16) Objective Last 24 Hour Vital Signs Date Time Temp Pulse Resp B/P Pulse Ox O2 Delivery O2 Flow Rate FiO2 05/28/16 13:12 71 107/57 05/28/16 13:09 77 32 40 05/28/16 12:00 40 05/28/16 12:00 97.3 71 26 107/57 100 Mechanical Ventilator 40 05/28/16 12:00 74 05/28/16 11:08 75 26 40 05/28/16 09:25 86 110/61 05/28/16 09:20 80 28 40 05/28/16 08:00 40 05/28/16 08:00 97.2 86 26 110/61 100 Mechanical Ventilator 40 05/28/16 08:00 79 05/28/16 07:19 81 25 40 05/28/16 04:50 78 26 40 05/28/16 04:00 76 05/28/16 04:00 96.8 82 19 112/64 100 Trach Collar 05/28/16 04:00 96.8 82 19 112/64 100 Trach Collar 05/28/16 04:00 40 05/28/16 03:10 73 25 40 05/28/16 01:08 76 26 40 05/28/16 00:00 73 05/28/16 00:00 40 05/27/16 23:56 96.8 82 19 112/64 100 Trach Collar 05/27/16 22:45 68 18 40 05/27/16 21:15 77 22 40 05/27/16 20:00 76 05/27/16 20:00 96.7 88 20 108/58 100 Trach Collar 05/27/16 20:00 40 05/27/16 19:00 74 26 40 05/27/16 18:31 86 106/52 05/27/16 16:38 80 30 40 05/27/16 16:00 96.6 86 20 106/52 100 Trach Collar 05/27/16 16:00 40 05/27/16 16:00 87 05/27/16 15:05 86 30 40 Intake and Output 05/27/16 05/28/16 19:00 07:00 Intake Total 640 ml 580 ml Output Total 700 ml 1075 ml Balance -60 ml -495 ml Free Water 40 ml IV Total 100 ml Tube Feeding 540 ml 540 ml Output Urine Total 500 ml 725 ml Stool Total 200 ml 350 ml # Voids 1 Laboratory Tests 05/28/16 09:30: Ammonia 62H Height (Feet): 5 Height (Inches): 7.00 Weight (Pounds): 150 General Appearance: no apparent distress Cardiovascular: normal rate Respiratory/Chest: decreased breath sounds Abdomen: distended Objective other PE not changed GUS JOHNSON May 28, 2016 13:56
[2016-05-28 16:25] VITALS: BP 128/75
[2016-05-28 20:10] VITALS: BP 105/43
[2016-05-28] MEDS ORDERED: Sterile Water For Irrig 2000ml IRRIG ONE (22:04)
--- NOTE | 2016-05-28 22:35 | Cardiology Report ---
APPROVED REPORT EKG Measurement Heart [id number] Normal sinus rhythm Right bundle branch block Abnormal ECG
[2016-05-29] MEDS ORDERED: Fluconazole 100mg tab GT SCH (09:00)
--- NOTE | 2016-05-29 11:49 | Discharge Summary ---
Discharge Summary Hospital Course Date of Admission May 24, 2016 at 11:46 Date of Discharge May 28, 2016 at 22:05 Admitting Diagnosis gross hematuria,hyponatremia ДМИТРИЙ Arnaldo Ramirez is a 55 year old male who was admitted on May 24, 2016 at 11:46 for Gross Hematuria, Hyponatremia Hospital Course [id number] Discharge Discharge Disposition Patient was discharged to SNF/Subacute Facility(03) Discharge Diagnoses: Kayli Hoff NP May 29, 2016 11:49
--- NOTE | 2016-05-29 23:08 | Discharge Summary 2 SIG ---
DATE OF ADMISSION: 05/24/2016 DATE OF DISCHARGE: 05/28/2016 CONSULTANTS: 1. Gurinder Lantigua M.D. 2. Marc Urena M.D. 3. Lukas Barajas M.D. BRIEF HOSPITAL COURSE: The patient is a 55-year-old male sent in by nursing facility due to increased hematuria. The patient has history of respiratory failure, on trach and vent and had a recent urinary retention and recent Colon catheter placement. On evaluation at ED, Colon catheter was changed to three-way Colon. The patient noted to have continued hematuria. Laboratory testing showed evidence of hyponatremia and CT findings with evidence of liver cirrhosis as well as gallbladder stones and bilateral effusion. The patient was started on 3% saline solution and was admitted to [facility] for further management and was followed by Dr. Lantigua. Hyponatremia was assessed to be secondary to edema and ascites due to underlying cirrhosis. Dr. Barajas was consulted. Hematuria appears to be secondary to urinary tract infection and recommend to continue complete course of antibiotics. Urinalyses showed 3+ leukocyte esterase with 15 to 20 WBC and too many to count urine RBC. He was started empirically on vancomycin and cefepime pending culture results. Urine culture showed growth of Sonja. Vancomycin was discontinued and was given Diflucan. He came in with sacral stage IV/unstageable pressure ulcer extending to the left buttock and was given wound care. Sodium level improved. The patient was eventually discharged back to SNF. FINAL DIAGNOSES: 1. Acute hyponatremia. 2. Acute hematuria. 3. Urinary tract infection. 4. Liver cirrhosis. 5. Chronic ventilator-dependent respiratory failure status post tracheostomy and percutaneous endoscopic gastrostomy. 6. Old cerebrovascular accident. 7. Right bundle-branch block. 8. Urinary retention with Colon catheter. 9. Unstageable sacral decubitus ulcer present on admission, not grossly infected. Uma Breen M.D. I have been assigned to dictate discharge summary on this account and I was not involved in the patient's management. Kayli Hoff N.P. DR: Rom JOB#: [id number] CC: JEROD
--- NOTE | 2016-06-03 10:34 | Diagnostic Imaging Report ---
APPROVED REPORT CPT Code: 52511 Present Symptoms Comments: R/O DVT BILATERAL: Imaging reveals a patent deep venous system bilaterally. There is no evidence of thrombus within the femoral, popliteal or tibial segments. The greater saphenous veins are also within normal limits. Doppler indicates normal spontaneous flow within these segments. Incidental finding: Cystic, fluid-filled structure was noted behind the right knee, possible a stanton's cyst (4.2 x 1.8)cm.
[2016-06-13] MEDS ORDERED: CEFTRIAXONE1 G2 IV (13:08)
[2016-06-16] MEDS ORDERED: TYGACIL50 MG IVPB (09:03)
== END 2016-05-28 22:05 | DRG 463 ==
LOC: EDBD 08:40 → EMR 09:05 → EDBEDREQ 11:37 → 2W 11:46 → EDBEDREQ 13:50
PROC: 5A1955Z Respiratory Ventilation, Greater than 96 Consecutive Hours (ICD-10-PCS; principal; 2016-05-24)
DX: N39.0 Urinary tract infection, site not specified (principal); Z99.11 Dependence on respirator [ventilator] status; J96.10 Chronic respiratory failure, unspecified whether with hypoxia or hypercapnia; L89.150 Pressure ulcer of sacral region, unstageable; K74.60 Unspecified cirrhosis of liver; E87.1 Hypo-osmolality and hyponatremia; I45.10 Unspecified right bundle-branch block; Z93.0 Tracheostomy status; I69.951 Hemiplegia and hemiparesis following unspecified cerebrovascular disease affecting right dominant side; R31.0 Gross hematuria; Z93.1 Gastrostomy status; G40.909 Epilepsy, unspecified, not intractable, without status epilepticus; R33.9 Retention of urine, unspecified
CPT/HCPCS: 36415; 71010; 74176; 80053; 81001; 81003; 82140; 82248; 82533; 82550; 82553; 82977; 83605; 83735; 83880; 83930; 83935; 84100; 84300; 84439; 84443; 84484; 84550; 85025; 85610; 85730; 86140; 87040; 87081; 87086; 87324; 93005; 93970; 94002; 94003; 94664; J2405

== ENCOUNTER 2016-05-31 10:03 | Emergency (ER) | payer MEDICAID ==
[~2016-05-31] VITALS: Ht 177.8 cm; Wt 90.7 kg
[~2016-05-31 10:03] MED LIST: ACETAMINOP160 MG/5 M ORAL; DULCOLAX10 MG RC; FLEET ENEMA133 ML RECTAL; KEPPRA LIQ100 MG/1 M GT; LACTULOSE20 GM/301 GT; METRONIDAZOLE500 MG GT; MILK OF MA400 MG/51 GT; PEPCID20 MG GT; PROPRANOLOL HCL10 MG GT; UTI-STAT L3875 MG/31 GT; VITAMIN C500 M1 GT; XIFAXAN550 MG GT; ZINC SULFATE220 M1 GT
[2016-05-31 11:10] LABS: APPEARANCE,URINE CLOUDY; KETONES,URINE NEGATIVE (NEGATIVE); LEUKOCYTE ESTERASE ,URINE NEGATIVE (NEGATIVE); NITRITE,URINE NEGATIVE (NEGATIVE); PH,URINE 7 (4.5-8.0); PROTEIN,URINE 3+ (NEGATIVE); UROBILINOGEN,URINE NORMAL MG/DL (0.0-1.0)
[2016-05-31 11:14] LABS: BACTERIA,URINE OCCASIONAL /HPF; RBC,URINE TNTC /HPF (0 - 0); SQUAMOUS EPITHELIAL CELL,UR OCCASIONAL /LPF (NONE/OCC)
[2016-05-31 11:53] VITALS: BP 99/49
--- NOTE | 2016-05-31 12:58 | Emergency Room Report ---
History of Present Illness General Chief Complaint: Male Urogenital Problems Source: EMS Present Illness HPI 55 YOM sent from SNF for hematuria of unknown duration. No other info from SNF or EMS. Patient denies complaints, not sure why he is here. See my A/p for further review of EMR. Allergies: Coded Allergies: No Known Allergies (Unverified , 05/24/16) Patient History Past Medical History: old chart reviewed Pertinent Family History: none Social History: Denies: alcohol use, drug use, smoking Immunizations: UTD Reviewed Nursing Documentation: PMH: Agreed, PSxH: Agreed Nursing Documentation-PMH Hx Hypertension: Yes Hx COPD: Yes - Respiratory failure, tracheostomy Hx Cancer: No Hx Gastrointestinal Problems: Yes - Hepatitis C, liver cirrhosis, G-tube, esophagel varacies, C. DIFF Hx Seizures: Yes Review of Systems All Other Systems: negative except mentioned in HPI Physical Exam Vital Signs Date Time Temp Pulse Resp B/P Pulse Ox O2 Delivery O2 Flow Rate FiO2 05/31/16 10:05 97.2 63 12 86/48 100 Mechanical Ventilator 100 Sp02 EP Interpretation: reviewed, normal General Appearance: normal inspection, well appearing, no apparent distress, alert, non-toxic Head: normocephalic, atraumatic Eyes: bilateral eye EOMI, bilateral eye PERRL ENT: normal ENT inspection, hearing grossly normal, normal voice Neck: normal inspection, full range of motion, supple, no bony tend Respiratory: normal inspection, lungs clear, normal breath sounds, no respiratory distress, no retraction, no wheezing Cardiovascular #1: regular rate, rhythm, no edema Gastrointestinal: normal inspection, normal bowel sounds, non tender, soft, no guarding, no hernia Genitourinary: no CVA tenderness, other - gross hematuria in cervantes bag Musculoskeletal: normal inspection, back normal, normal range of motion, Viri' s Sign negative Neurologic: normal inspection, alert, oriented x3, responsive, 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 Is currently on multi day Diflucan. CTAP did not show bladder mass or other reason for hematuria Patient's vitals stable. No abd pain, ttp on serial exam, or complaints I attempted to contact patient's SNF PMD Dr Breen to ensure there was no additional reason for patient coming to ED but did not hear back prior to DC back to SNF Last Vital Signs Date Time Temp Pulse Resp B/P Pulse Ox O2 Delivery O2 Flow Rate FiO2 05/31/16 11:53 97.2 74 24 99/49 100 Mechanical Ventilator 50 Status: improved Disposition: XFER SNF Referrals: [facility] (PCP) DANIEL JENKINS M.D. May 31, 2016 12:58
[2016-05-31 13:50] VITALS: BP 118/89
[2016-05-31] MEDS ORDERED: DuoNeb 0.5-3(2.5)mg/3ml neb HHN PRN (14:00)
[2016-05-31] MEDS ORDERED: Morphine Sulfate 4mg/ml Inj IVP PRN (14:00)
[2016-05-31] MEDS ORDERED: LORazepam Inj 2mg/ml 1ml IV PRN (14:00)
[2016-05-31] MEDS ORDERED: Miralax 17gm pkt ORAL PRN (14:00)
[2016-05-31 14:55] VITALS: BP 118/89
[2016-05-31] MEDS ORDERED: Rifaximin 550mg tab GT SCH (18:00)
[2016-05-31] MEDS ORDERED: Propranolol 10mg tab GT SCH (18:00)
[2016-05-31] MEDS ORDERED: Cefepime HCl 2 GM in D5W 110 ML IV SCH (21:00)
[2016-05-31] MEDS ORDERED: Vancomycin 1 GM in D5W 275 ML IV SCH (23:00)
[2016-06-01] MEDS ORDERED: levETIRAcetam 500mg/5ml Liquid GT SCH (09:00)
[2016-06-13] MEDS ORDERED: CEFTRIAXONE1 G2 IV (13:08)
[2016-06-16] MEDS ORDERED: TYGACIL50 MG IVPB (09:03)
== END 2016-05-31 14:58 ==
LOC: EDUNIT# 10:03 → EDBD 10:03 → EMR 10:50
DX: R31.9 Hematuria, unspecified (principal); B37.89 Other sites of candidiasis; J96.90 Respiratory failure, unspecified, unspecified whether with hypoxia or hypercapnia; Z93.0 Tracheostomy status; K74.60 Unspecified cirrhosis of liver; B19.20 Unspecified viral hepatitis C without hepatic coma
CPT/HCPCS: 81003; 94002; 94664; 99283

== ENCOUNTER 2016-07-09 15:03 | Inpatient (IN) | payer MEDICAID ==
[~2016-07-09] VITALS: Ht 167.6 cm; Wt 70.8 kg
--- NOTE | 2016-07-09 14:55 | Emergency Room Report ---
History of Present Illness General Source: Patient, EMS Present Illness HPI Patient is a 55-year-old male who presented after increased gross hematuria. The patient had a history of indwelling Colon catheter. patient denied any recent catheter migration. Patient had been noted to have increased blood in his urine for past 2 days. Patient was noted to be trach and ventilator dependent. He had not been any fever. He denies any chest pain or shortness of breath. Allergies: Coded Allergies: No Known Allergies (Unverified , 06/09/16) Patient History Reviewed Nursing Documentation: PMH: Agreed, PSxH: Agreed Review of Systems All Other Systems: negative except mentioned in HPI Physical Exam Sp02 EP Interpretation: reviewed, normal General Appearance: normal inspection, alert, non-toxic, Chronically Ill Head: atraumatic ENT: normal ENT inspection, hearing grossly normal Neck: normal inspection, full range of motion, supple, no bony tend, tracheotomy Respiratory: normal inspection, lungs clear, normal breath sounds, no respiratory distress, no retraction, no wheezing Cardiovascular #1: regular rate, rhythm, no edema Gastrointestinal: normal inspection, normal bowel sounds, non tender, soft, no guarding, no hernia Genitourinary: normal inspection, no CVA tenderness Musculoskeletal: normal inspection, back normal, normal range of motion Neurologic: normal inspection, alert, oriented x3, responsive, staking engineer III-XII nml as tested, speech normal Psychiatric: normal inspection, judgement/insight normal, mood/affect normal Skin: normal inspection, normal color, no rash Medical Decision Making Diagnostic Impression: Primary Impression: Hyponatremia Additional Impressions: Anemia Ventilator dependent ER Course Patient presented for hematuria. Differential diagnosis included was not limited to Colon catheter trauma, coagulopathy, bladder cancer, among others. The patient started on mechanical ventilator.Patient started on IV fluids and IV antibiotics Colon catheter was replaced with three-way Colon. Patient was noted to be moderately anemic with hemoglobin 6.7. Patient was type and crossed for blood. The patient was given morphine for pain. Dr. Breen was contacted for inpatient management due to complexity of medical condition. Labs Test 07/09/16 15:18 07/09/16 15:23 White Blood Count 10.6 K/UL (4.8-10.8) Red Blood Count 1.84 M/UL (4.70-6.10) Hemoglobin 6.7 G/DL (14.2-18.0) Hematocrit 18.2 % (42.0-52.0) Mean Corpuscular Volume 99 FL (80-99) Mean Corpuscular Hemoglobin 36.3 PG (27.0-31.0) Mean Corpuscular Hemoglobin Concent 36.8 G/DL (32.0-36.0) Red Cell Distribution Width 14.0 % (11.6-14.8) Platelet Count 80 K/UL (150-450) Mean Platelet Volume 5.2 FL (6.5-10.1) Neutrophils (%) (Auto) % (45.0-75.0) Lymphocytes (%) (Auto) % (20.0-45.0) Monocytes (%) (Auto) % (1.0-10.0) Eosinophils (%) (Auto) % (0.0-3.0) Basophils (%) (Auto) % (0.0-2.0) Prothrombin Time 15.8 SEC (9.30-11.50) Prothromb Time International Ratio 1.5 (0.9-1.1) Activated Partial Thromboplast Time 38 SEC (23-33) Sodium Level 119 mEQ/L (135-145) Potassium Level 4.6 mEQ/L (3.4-4.9) Chloride Level 80 mEQ/L (98-107) Carbon Dioxide Level 24 mEQ/L (20-30) Anion Gap 15 (5-15) Blood Urea Nitrogen 15 mg/dL (7-23) Creatinine 0.5 mg/dL (0.7-1.2) Estimat Glomerular Filtration Rate > 60 mL/min (>60) Glucose Level 91 mg/dL (74-106) Lactic Acid Level 3.80 mmol/L (0.66-2.22) Calcium Level 8.9 mg/dL (8.6-10.2) Total Bilirubin 1.3 mg/dL (0.0-1.2) Aspartate Amino Transf (AST/SGOT) 36 U/L (5-40) Alanine Aminotransferase (ALT/SGPT) 16 U/L (3-41) Alkaline Phosphatase 211 U/L (40-129) Total Creatine Kinase 15 U/L (38-174) Creatine Kinase MB < 1.5 ng/mL (< 6.7) Creatine Kinase MB Relative Index Troponin I < 0.30 ng/mL (<=0.30) Total Protein 6.5 g/dL (6.6-8.7) Albumin 2.7 g/dL (3.5-5.2) Globulin 3.8 g/dL Albumin/Globulin Ratio 0.7 (1.0-2.7) Arterial Blood pH 7.464 (7.350-7.450) Arterial Blood Partial Pressure CO2 29.6 mmHg (35.0-45.0) Arterial Blood Partial Pressure O2 83.7 mmHg (75.0-100.0) Arterial Blood HCO3 20.8 mmol/L (22.0-26.0) Arterial Blood Oxygen Saturation 95.8 % (92.0-98.0) Arterial Blood Base Excess -2.6 Primitivo Test Positive EKG Diagnostic Results Rate: normal - 888 Rhythm: NSR ST Segments: no acute changes Chest X-Ray Diagnostic Results EP Interpretation: No Findings: no effusion, no pneumothorax, other - patchy infiltrate vs edema Number of Views: 1 Status: unchanged Disposition: ADMITTED INPATIENT Condition: Serious FaheemJoel July 09, 2016 14:55
[~2016-07-09 15:03] MED LIST changes: +CEFTRIAXONE1 G2 IV; +TYGACIL50 MG IVPB
[2016-07-09 15:30] LABS: ABG ALLEN TEST POSITIVE; ABG BASE EXCESS -2.6; ABG PCO2 29.6 mmHg (35.0-45.0)
[2016-07-09 15:58] LABS: MEAN CORPUSCULAR HEMOGLOBIN 36.3 PG (27.0-31.0); MEAN CORPUSCULAR HGB CONC 36.8 G/DL (32.0-36.0); MEAN CORPUSCULAR VOLUME 99 FL (80-99); MEAN PLATELET VOLUME 5.2 FL (6.5-10.1); PLATELET COUNT 80 K/UL (150-450); RED BLOOD COUNT 1.84 M/UL (4.70-6.10); WHITE BLOOD COUNT 10.6 K/UL (4.8-10.8)
[2016-07-09 16:13] LABS: ALANINE AMINOTRANSFERASE 16 U/L (3-41); ALBUMIN/GLOBULIN RATIO 0.7 (1.0-2.7); ANION GAP 15 (5-15); ASPARTATE AMINO TRANSFERASE 36 U/L (5-40); CALCIUM 8.9 mg/dL (8.6-10.2); CARBON DIOXIDE 24 mEQ/L (20-30); CHLORIDE 80 mEQ/L (98-107); CREATININE 0.5 mg/dL (0.7-1.2); GLOMERULAR FILTRATION RATE > 60 mL/min (>60); HEMOLYSIS 4; POTASSIUM 4.6 mEQ/L (3.4-4.9); TOTAL PROTEIN 6.5 g/dL (6.6-8.7); TROPONIN I < 0.30 ng/mL (<=0.30)
[2016-07-09 16:23] LABS: CKMB < 1.5 ng/mL (< 6.7)
[2016-07-09 16:24] LABS: REFLEX LACTIC ACID YES OR NO YES
[2016-07-09 16:32] LABS: INR 1.5 (0.9-1.1); PROTHROMBIN TIME 15.8 SEC (9.30-11.50)
[2016-07-09 16:36] LABS: SODIUM 119 mEQ/L (135-145)
[2016-07-09] MEDS ORDERED: Morphine Sulfate 2mg/ml Inj IVP ONE (16:45)
[2016-07-09] MEDS ORDERED: Pantoprazole Inj IVP ONE (16:45)
[2016-07-09 17:07] LABS: BILIRUBIN,DIRECT 0.5 mg/dL (0.1-0.3)
[2016-07-09] MEDS ORDERED: Ampicillin/Sulbactam Sod 3 GM in NS 110 ML IVPB ONE (17:15)
[2016-07-09 17:18] LABS: BAND NEUTROPHILS % (MANUAL) 14 % (0-8); EOSINOPHILS % (MANUAL) 5 % (0-3); LYMPHOCYTES % (MANUAL) 14 % (20-45); MYELOCYTES % 1 % (0-0); NEUTROPHILS % (MANUAL) 59 % (45-75); TOTAL CELLS COUNTED 100
[2016-07-09 17:19] LABS: ANISOCYTOSIS 1+; HYPOCHROMASIA 2+; MACROCYTES 1+; POLYCHROMASIA 1+
[2016-07-09 17:20] LABS: BASOPHILS % (MANUAL) 0 % (0-2); PLATELET ESTIMATE DECREASED; PLATELET MORPHOLOGY NORMAL
[2016-07-09] MEDS ORDERED: Miralax 17gm pkt ORAL PRN (18:00)
[2016-07-09] MEDS ORDERED: DuoNeb 0.5-3(2.5)mg/3ml neb HHN PRN (18:00)
[2016-07-09] MEDS ORDERED: Morphine Sulfate 4mg/ml Inj IVP PRN (18:00)
[2016-07-09] MEDS ORDERED: LORazepam Inj 2mg/ml 1ml IV PRN (18:00)
[2016-07-09 18:05] VITALS: BP 81/41
[2016-07-09 18:31] VITALS: BP 88/47
[2016-07-09 19:00] VITALS: BP 78/41
[2016-07-09] MEDS ORDERED: FAMOTIDINE20 MG GT (19:28)
[2016-07-09] MEDS ORDERED: MILK OF MA400 MG/51 GT (19:40)
[2016-07-09] MEDS ORDERED: FERROUS SULFAT325 MG GT (19:46)
[2016-07-09] MEDS ORDERED: FOLIC ACID1 MG GT (19:46)
[2016-07-09] MEDS ORDERED: ATIVAN1 MG ORAL (19:46)
[2016-07-09] MEDS ORDERED: MULTIVITAMINS1 EAC8 GT (19:53)
[2016-07-09] MEDS ORDERED: ADVIL CHIL100 MG/5 M GT (19:53)
[2016-07-09] MEDS ORDERED: LASIX20 M1 GT (19:53)
[2016-07-09] MEDS ORDERED: PROMOD946 ML GT (19:53)
[2016-07-09 20:00] VITALS: BP 89/57
[2016-07-09] MEDS ORDERED: LEVETIRACE100 MG/1 M GT (20:22)
[2016-07-09] MEDS: Propranolol 10mg tab GT SCH (21:00)
[2016-07-09] MEDS: Lactulose 20gm/30ml UDC GT SCH (21:35)
[2016-07-09] MEDS: Piperacillin/Tazobactam 3.375 GM in NS 110 ML IVPB SCH (21:36)
[2016-07-09] MEDS: D5NS 1,000 ML IV SCH (22:45)
[2016-07-09] MEDS: levETIRAcetam 500mg/5ml Liquid GT SCH (22:55)
[2016-07-10] VITALS (7 sets, daily range): BP systolic 93–99; BP diastolic 51–57
[2016-07-10] MEDS ORDERED: Vancomycin 1 GM in NS 275 ML IVPB SCH ×2
[2016-07-10] MEDS: Piperacillin/Tazobactam 3.375 GM in NS 110 ML IVPB SCH ×3 (05:13→20:52)
[2016-07-10 05:28] LABS: MEAN CORPUSCULAR HEMOGLOBIN 32.3 PG (27.0-31.0); MEAN CORPUSCULAR HGB CONC 35.1 G/DL (32.0-36.0); MEAN CORPUSCULAR VOLUME 92 FL (80-99); MEAN PLATELET VOLUME 6.3 FL (6.5-10.1); PLATELET COUNT 63 K/UL (150-450); RED BLOOD COUNT 2.11 M/UL (4.70-6.10); RED CELL DISTRIBUTION WIDTH 16.4 % (11.6-14.8); WHITE BLOOD COUNT 9.7 K/UL (4.8-10.8)
[2016-07-10 05:50] LABS: HEMOLYSIS 1; IRON 47 ug/dL (59-158); TOTAL IRON BINDING CAPACITY 134 ug/dL (250-400)
[2016-07-10 05:56] LABS: ANION GAP 14 (5-15); CALCIUM 7.9 mg/dL (8.6-10.2); CARBON DIOXIDE 22 mEQ/L (20-30); CHLORIDE 87 mEQ/L (98-107); CREATININE 0.4 mg/dL (0.7-1.2); GLOMERULAR FILTRATION RATE > 60 mL/min (>60); HEMOLYSIS 2; PHOSPHORUS 3.9 mg/dL (2.5-4.8); POTASSIUM 4.5 mEQ/L (3.4-4.9); SODIUM 123 mEQ/L (135-145)
[2016-07-10 06:00] LABS: FERRITIN 284 ng/mL (10-230)
[2016-07-10 07:41] LABS: ANISOCYTOSIS 1+; BAND NEUTROPHILS % (MANUAL) 15 % (0-8); BASOPHILS % (MANUAL) 0 % (0-2); EOSINOPHILS % (MANUAL) 0 % (0-3); HYPOCHROMASIA 1+; LYMPHOCYTES % (MANUAL) 4 % (20-45); NEUTROPHILS % (MANUAL) 79 % (45-75); PLATELET ESTIMATE DECREASED; PLATELET MORPHOLOGY NORMAL; TOTAL CELLS COUNTED 100
[2016-07-10 08:35] LABS: PATH BLOOD SMEAR/OMC SENT TO PATHOLOGIST; RETICULOCYTE COUNT 2.9 % (0.0-2.0)
[2016-07-10] MEDS: Propranolol 10mg tab GT SCH ×2 (09:00→21:00)
[2016-07-10] MEDS: Lactulose 20gm/30ml UDC GT SCH ×5 (09:01→22:44)
[2016-07-10] MEDS: Zinc Sulfate 220mg cap GT SCH (09:01)
[2016-07-10] MEDS: levETIRAcetam 500mg/5ml Liquid GT SCH ×2 (09:03→22:45)
--- NOTE | 2016-07-10 10:37 | Diagnostic Imaging Report ---
Indication: Dyspnea Comparison: 06/09/16 A single view chest radiograph was obtained. Findings: Slightly worsening patchy airspace disease noted bilaterally with some interstitial disease and cardiomegaly present as well. Tracheostomy is present. Impression: Patchy infiltrates versus asymmetric pulmonary edema. These correlate clinically. Lung disease appears worse.
--- NOTE | 2016-07-10 10:40 | Consultation ---
Consult Note Consult Note Hematology Consult Note DOS: 07/10/16 Bill MIKE: [facility]: evaluation anemia ID: 55-year-old male who presented after increased gross hematuria. The patient had a history of indwelling Cervantes catheter. patient denied any recent catheter migration. Patient had been noted to have increased blood in his urine for past 2 days. Patient was noted to be trach and ventilator dependent. He had not been any fever. He denies any chest pain or shortness of breath.Hgb was 6.8 today after 2 units prbc, and will transfuse further today. Currently does not appear to have evidence for hemolysis and potentially with tracheostomy bleed noted on physical exam. Allergies: No Known Allergies (Unverified , 06/09/16) ROS: unable to ascertain as not verbal PE: Gen: reviewed, normal inspection, alert, non-toxic, Chronically Ill Head: atraumatic ENT: normal ENT inspection, hearing grossly normal Neck: normal inspection, full range of motion, supple, no bony tend, tracheotomy Respiratory: normal inspection, lungs clear, normal breath sounds, + trach Cardiovascular: regular rate, rhythm, no edema Gastrointestinal: normal inspection, normal bowel sounds, non tender, soft, no guarding, no hernia Genitourinary: normal inspection, no CVA tenderness Musculoskeletal: normal inspection, back normal, normal range of motion Neurologic: normal inspection, alert, oriented x3, responsive Psychiatric: normal inspection, judgement/insight normal, mood/affect normal Skin: normal inspection, normal color, no rash Laboratory Tests Test 07/09/16 15:18 07/09/16 15:23 07/10/16 04:30 White Blood Count 10.6 K/UL (4.8-10.8) 9.7 K/UL (4.8-10.8) Red Blood Count 1.84 M/UL (4.70-6.10) L 2.11 M/UL (4.70-6.10) L Hemoglobin 6.7 G/DL (14.2-18.0) *L 6.8 G/DL (14.2-18.0) *L Hematocrit 18.2 % (42.0-52.0) L 19.4 % (42.0-52.0) L Mean Corpuscular Volume 99 FL (80-99) 92 FL (80-99) Mean Corpuscular Hemoglobin 36.3 PG (27.0-31.0) H 32.3 PG (27.0-31.0) H Mean Corpuscular Hemoglobin Concent 36.8 G/DL (32.0-36.0) H 35.1 G/DL (32.0-36.0) Red Cell Distribution Width 14.0 % (11.6-14.8) 16.4 % (11.6-14.8) H Platelet Count 80 K/UL (150-450) L 63 K/UL (150-450) L Mean Platelet Volume 5.2 FL (6.5-10.1) L 6.3 FL (6.5-10.1) L Neutrophils (%) (Auto) % (45.0-75.0) % (45.0-75.0) Lymphocytes (%) (Auto) % (20.0-45.0) % (20.0-45.0) Monocytes (%) (Auto) % (1.0-10.0) % (1.0-10.0) Eosinophils (%) (Auto) % (0.0-3.0) % (0.0-3.0) Basophils (%) (Auto) % (0.0-2.0) % (0.0-2.0) Differential Total Cells Counted 100 100 Neutrophils % (Manual) 59 % (45-75) 79 % (45-75) H Lymphocytes % (Manual) 14 % (20-45) L 4 % (20-45) L Monocytes % (Manual) 7 % (1-10) 2 % (1-10) Eosinophils % (Manual) 5 % (0-3) H 0 % (0-3) Basophils % (Manual) 0 % (0-2) 0 % (0-2) Myelocytes % 1 % (0-0) H Band Neutrophils 14 % (0-8) H 15 % (0-8) H Platelet Estimate Decreased L Decreased L Platelet Morphology Normal Normal Polychromasia 1+ Hypochromasia 2+ 1+ Anisocytosis 1+ 1+ Macrocytosis 1+ Prothrombin Time 15.8 SEC (9.30-11.50) H Prothromb Time International Ratio 1.5 (0.9-1.1) H Activated Partial Thromboplast Time 38 SEC (23-33) H Sodium Level 119 mEQ/L (135-145) *L 123 mEQ/L (135-145) L Potassium Level 4.6 mEQ/L (3.4-4.9) 4.5 mEQ/L (3.4-4.9) Chloride Level 80 mEQ/L (98-107) L 87 mEQ/L (98-107) L Carbon Dioxide Level 24 mEQ/L (20-30) 22 mEQ/L (20-30) Anion Gap 15 (5-15) 14 (5-15) Blood Urea Nitrogen 15 mg/dL (7-23) 19 mg/dL (7-23) Creatinine 0.5 mg/dL (0.7-1.2) L 0.4 mg/dL (0.7-1.2) L Estimat Glomerular Filtration Rate > 60 mL/min (>60) > 60 mL/min (>60) Glucose Level 91 mg/dL (74-106) 91 mg/dL (74-106) Lactic Acid Level 3.80 mmol/L (0.66-2.22) H Calcium Level 8.9 mg/dL (8.6-10.2) 7.9 mg/dL (8.6-10.2) L Total Bilirubin 1.3 mg/dL (0.0-1.2) H Direct Bilirubin 0.5 mg/dL (0.1-0.3) H Aspartate Amino Transf (AST/SGOT) 36 U/L (5-40) Alanine Aminotransferase (ALT/SGPT) 16 U/L (3-41) Alkaline Phosphatase 211 U/L (40-129) H Total Creatine Kinase 15 U/L (38-174) L Creatine Kinase MB < 1.5 ng/mL (< 6.7) Creatine Kinase MB Relative Index Troponin I < 0.30 ng/mL (<=0.30) Total Protein 6.5 g/dL (6.6-8.7) L Albumin 2.7 g/dL (3.5-5.2) L 2.0 g/dL (3.5-5.2) L Globulin 3.8 g/dL Albumin/Globulin Ratio 0.7 (1.0-2.7) L Arterial Blood pH 7.464 (7.350-7.450) Arterial Blood Partial Pressure CO2 29.6 mmHg (35.0-45.0) L Arterial Blood Partial Pressure O2 83.7 mmHg (75.0-100.0) Arterial Blood HCO3 20.8 mmol/L (22.0-26.0) L Arterial Blood Oxygen Saturation 95.8 % (92.0-98.0) Arterial Blood Base Excess -2.6 Primitivo Test Positive Reticulocyte Count 2.9 % (0.0-2.0) H Haptoglobin 98 mg/dL (30-200) Phosphorus Level 3.9 mg/dL (2.5-4.8) Iron Level 47 ug/dL (59-158) L Total Iron Binding Capacity 134 ug/dL (250-400) L Percent Iron Saturation 35 % (15-50) Unsaturated Iron Binding 87 ug/dL (112-346) L Ferritin 284 ng/mL (10-230) H Hepatitis A IgM Antibody Pending Hepatitis B Surface Antigen Pending Hepatitis B Core IgM Antibody Pending Hepatitis C Antibody Pending HIV (1&2) Antibody Rapid Negative (NEGATIVE) Assessment and plan: # Hematuria, julisa potentially cervantes catheter trauma # Anemia rule out GI bleed - GI service to evaluate # Thrombocytopenia potentially 2/2 sepsis, elevated lactate, likely 2/2 hepatosplenomegaly # Anemia 2/2 chronic disease - have reviewed iron panel # Hyponatremia potentially 2/2 dehydration # Ventilator dependent - respiratory distress, s/p trach # Cirrhosis # Hepatosplenomegaly # Malnutrition Art Mackenzie July 10, 2016 10:40
[2016-07-10] MEDS: D5NS 1,000 ML IV SCH ×2 (10:52→21:22)
--- NOTE | 2016-07-10 12:08 | History and Physical ---
History of Present Illness General Date patient seen: July 10, 2016 Reason for Hospitalization: Male Urogenital Problems Present Illness HPI 55-year-old male with chronic trach/vent/ peg, assisted resident presented to [facility] with CC of gross hematuria and severe anemia The patient had a history of indwelling Colon catheter. He had not been any fever. He denies any chest pain or shortness of breath. His CXR showed bilateral infiltrate. Allergies: Coded Allergies: No Known Allergies (Unverified , 06/09/16) Medication History Scheduled Ascorbic Acid* (Vitamin C*), 500 MG GT DAILY, (Reported) Cran/Vitc/Mannose/Inulin/Brom (Uti-Stat Liquid), 3,875 MG GT DAILY, (Reported) Famotidine (Famotidine), 20 MG GT DAILY, (Reported) Ferrous Sulfate* (Ferrous Sulfate*), 325 MG GT DAILY, (Reported) Folic Acid* (Folic Acid*), 1 MG GT DAILY, (Reported) Furosemide* (Lasix*), 20 MG GT DAILY, (Reported) Lactulose (Lactulose*), 30 ML GT QID, (Reported) Levetiracetam* (Levetiracetam*), 1,500 MG GT Q12HR, (Reported) Magnesium Hydroxide* (Milk Of Magnesia*), 30 ML GT QHS, (Reported) Multivitamin With Minerals (Multivitamins With Minerals*), 1 TAB GT DAILY, ( Reported) Propranolol Hcl* (Inderal*), 10 MG GT BID, (Reported) Protein Supplement (Promod), 30 ML GT TID, (Reported) Zinc Sulfate (Zinc Sulfate*), 220 MG GT DAILY, (Reported) Scheduled PRN Acetaminophen 160MG/5ML* (Acetaminophen*), 20 ML ORAL EVERY 4 HOURS PRN for For Pain, (Reported) Bisacodyl (Dulcolax), 10 MG RC DAILY PRN for Constipation, (Reported) Ibuprofen (Advil Children's), 200 MG GT Q6H PRN for For Pain, (Reported) Lorazepam* (Ativan*), 1 MG ORAL Q6HR PRN for For Anxiety, (Reported) Na Phos,M-B/Na Phos,Di-Ba* (Fleet Enema*), 133 ML RECTAL EVERY TWO DAYS PRN for Constipation, (Reported) Discontinued Medications Rifaximin* (Xifaxan*), 550 MG GT TWICE A DAY, (Reported) Discontinued Reason: Pt stopped taking med Tigecycline (Tygacil), 50 MG IVPB EVERY 12 HOURS Discontinued Reason: Pt stopped taking med Patient History Healthcare decision maker Resuscitation status Full Code Advanced Directive on File No Past Medical/Surgical History Past Medical/Surgical History: (1) Ventilator dependent (2) Anemia (3) Ascites (4) Decubitus ulcer (5) Liver cirrhosis (6) Chronic respiratory failure Review of Systems All Other Systems: negative except mentioned in HPI Physical Exam General Appearance: WD/WN Lines, tubes and drains: peripheral, PICC HEENT: normocephalic, atraumatic Respiratory/Chest: chest wall non-tender, lungs clear Breasts: no masses Cardiovascular/Chest: normal peripheral pulses Abdomen: normal bowel sounds, non tender, soft Genitourinary/Rectal: normal genital exam Extremities: normal range of motion, normal inspection Skin Exam: normal pigmentation 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 II-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 grossly normal Last 24 Hour Vital Signs Date Time Temp Pulse Resp B/P Pulse Ox O2 Delivery O2 Flow Rate FiO2 07/10/16 11:42 98.4 83 21 93/51 Mechanical Ventilator 07/10/16 11:14 80 20 35 07/10/16 10:25 35 07/10/16 10:24 78 07/10/16 09:28 85 22 35 07/10/16 09:00 79 93/51 07/10/16 08:00 97.9 79 16 93/51 99 Mechanical Ventilator 35 07/10/16 07:22 93 19 35 07/10/16 05:16 81 17 35 07/10/16 04:00 97.3 75 16 96/54 100 Mechanical Ventilator 35 07/10/16 04:00 80 07/10/16 03:11 79 18 35 07/10/16 01:18 74 18 35 07/10/16 00:00 96.6 71 20 95/53 100 Mechanical Ventilator 35 07/10/16 00:00 35 07/09/16 23:13 77 15 35 07/09/16 21:00 35 07/09/16 21:00 72 84/42 07/09/16 20:52 72 21 35 07/09/16 20:00 96.3 84 18 89/57 100 Mechanical Ventilator 35 07/09/16 19:51 78 07/09/16 19:30 83 18 35 07/09/16 19:00 148/72 07/09/16 19:00 98.2 75 18 78/41 99 Mechanical Ventilator 40 07/09/16 18:31 97.9 81 20 88/47 100 Mechanical Ventilator 40 07/09/16 18:08 98.1 07/09/16 18:05 78 18 81/41 100 Mechanical Ventilator 40 07/09/16 18:00 98.1 80 20 07/09/16 17:43 98.3 83 20 07/09/16 16:49 85 28 40 07/09/16 15:09 98.0 07/09/16 14:48 92 20 Mechanical Ventilator 40 07/09/16 14:48 90 26 40 07/09/16 14:47 92 20 96/52 99 Mechanical Ventilator 40 Intake and Output 07/09/16 07/10/16 19:00 07:00 Intake Total 2370.55 ml Output Total 1100 ml Balance 1270.55 ml Intake Oral 0 ml IV Total 2070.55 ml Blood Product 300 ml Output Urine Total 1100 ml Laboratory Tests Test 07/09/16 15:18 07/09/16 15:23 07/10/16 04:30 White Blood Count 10.6 K/UL (4.8-10.8) 9.7 K/UL (4.8-10.8) Red Blood Count 1.84 M/UL (4.70-6.10) L 2.11 M/UL (4.70-6.10) L Hemoglobin 6.7 G/DL (14.2-18.0) *L 6.8 G/DL (14.2-18.0) *L Hematocrit 18.2 % (42.0-52.0) L 19.4 % (42.0-52.0) L Mean Corpuscular Volume 99 FL (80-99) 92 FL (80-99) Mean Corpuscular Hemoglobin 36.3 PG (27.0-31.0) H 32.3 PG (27.0-31.0) H Mean Corpuscular Hemoglobin Concent 36.8 G/DL (32.0-36.0) H 35.1 G/DL (32.0-36.0) Red Cell Distribution Width 14.0 % (11.6-14.8) 16.4 % (11.6-14.8) H Platelet Count 80 K/UL (150-450) L 63 K/UL (150-450) L Mean Platelet Volume 5.2 FL (6.5-10.1) L 6.3 FL (6.5-10.1) L Neutrophils (%) (Auto) % (45.0-75.0) % (45.0-75.0) Lymphocytes (%) (Auto) % (20.0-45.0) % (20.0-45.0) Monocytes (%) (Auto) % (1.0-10.0) % (1.0-10.0) Eosinophils (%) (Auto) % (0.0-3.0) % (0.0-3.0) Basophils (%) (Auto) % (0.0-2.0) % (0.0-2.0) Differential Total Cells Counted 100 100 Neutrophils % (Manual) 59 % (45-75) 79 % (45-75) H Lymphocytes % (Manual) 14 % (20-45) L 4 % (20-45) L Monocytes % (Manual) 7 % (1-10) 2 % (1-10) Eosinophils % (Manual) 5 % (0-3) H 0 % (0-3) Basophils % (Manual) 0 % (0-2) 0 % (0-2) Myelocytes % 1 % (0-0) H Band Neutrophils 14 % (0-8) H 15 % (0-8) H Platelet Estimate Decreased L Decreased L Platelet Morphology Normal Normal Polychromasia 1+ Hypochromasia 2+ 1+ Anisocytosis 1+ 1+ Macrocytosis 1+ Prothrombin Time 15.8 SEC (9.30-11.50) H Prothromb Time International Ratio 1.5 (0.9-1.1) H Activated Partial Thromboplast Time 38 SEC (23-33) H Sodium Level 119 mEQ/L (135-145) *L 123 mEQ/L (135-145) L Potassium Level 4.6 mEQ/L (3.4-4.9) 4.5 mEQ/L (3.4-4.9) Chloride Level 80 mEQ/L (98-107) L 87 mEQ/L (98-107) L Carbon Dioxide Level 24 mEQ/L (20-30) 22 mEQ/L (20-30) Anion Gap 15 (5-15) 14 (5-15) Blood Urea Nitrogen 15 mg/dL (7-23) 19 mg/dL (7-23) Creatinine 0.5 mg/dL (0.7-1.2) L 0.4 mg/dL (0.7-1.2) L Estimat Glomerular Filtration Rate > 60 mL/min (>60) > 60 mL/min (>60) Glucose Level 91 mg/dL (74-106) 91 mg/dL (74-106) Lactic Acid Level 3.80 mmol/L (0.66-2.22) H Calcium Level 8.9 mg/dL (8.6-10.2) 7.9 mg/dL (8.6-10.2) L Total Bilirubin 1.3 mg/dL (0.0-1.2) H Direct Bilirubin 0.5 mg/dL (0.1-0.3) H Aspartate Amino Transf (AST/SGOT) 36 U/L (5-40) Alanine Aminotransferase (ALT/SGPT) 16 U/L (3-41) Alkaline Phosphatase 211 U/L (40-129) H Total Creatine Kinase 15 U/L (38-174) L Creatine Kinase MB < 1.5 ng/mL (< 6.7) Creatine Kinase MB Relative Index Troponin I < 0.30 ng/mL (<=0.30) Total Protein 6.5 g/dL (6.6-8.7) L Albumin 2.7 g/dL (3.5-5.2) L 2.0 g/dL (3.5-5.2) L Globulin 3.8 g/dL Albumin/Globulin Ratio 0.7 (1.0-2.7) L Arterial Blood pH 7.464 (7.350-7.450) Arterial Blood Partial Pressure CO2 29.6 mmHg (35.0-45.0) L Arterial Blood Partial Pressure O2 83.7 mmHg (75.0-100.0) Arterial Blood HCO3 20.8 mmol/L (22.0-26.0) L Arterial Blood Oxygen Saturation 95.8 % (92.0-98.0) Arterial Blood Base Excess -2.6 Primitivo Test Positive Reticulocyte Count 2.9 % (0.0-2.0) H Haptoglobin 98 mg/dL (30-200) Phosphorus Level 3.9 mg/dL (2.5-4.8) Iron Level 47 ug/dL (59-158) L Total Iron Binding Capacity 134 ug/dL (250-400) L Percent Iron Saturation 35 % (15-50) Unsaturated Iron Binding 87 ug/dL (112-346) L Ferritin 284 ng/mL (10-230) H Hepatitis A IgM Antibody Pending Hepatitis B Surface Antigen Pending Hepatitis B Core IgM Antibody Pending Hepatitis C Antibody Pending HIV (1&2) Antibody Rapid Negative (NEGATIVE) Microbiology Date/Time Source Procedure Growth Status 07/09/16 16:00 Blood Blood Culture - Preliminary Resulted 07/09/16 16:00 Blood Blood Culture - Preliminary Resulted 07/09/16 21:00 Sacral Lower Gram Stain - Final Resulted 07/09/16 21:00 Sacral Lower Wound Culture Pending Resulted Height (Feet): 5 Height (Inches): 7.00 Weight (Pounds): 158 Medications Current Medications Medications (Trade) Dose Ordered Sig/Hair Route PRN Reason Start Time Stop Time Status Last Admin Dose Admin Acetaminophen (Tylenol) 650 mg Q4H PRN ORAL FEVER 07/09/16 18:00 08/08/16 17:59 Albuterol/ Ipratropium (DuoNeb 0.5-3(2.5)mg/3ml) 3 ml Q4H PRN HHN Shortness of Breath 07/09/16 18:00 07/14/16 17:59 Dextrose (Dextrose 50%) STAT PRN IV Hypoglycemia 07/09/16 18:00 08/08/16 17:59 Dextrose/Sodium Chloride 1,000 ml @ 75 mls/hr [id number] IV 07/09/16 20:30 08/08/16 20:29 07/10/16 10:52 Lactulose (Cephulac) 20 gm QID GT 07/09/16 20:00 08/08/16 19:59 07/10/16 09:01 Levetiracetam (Keppra) 1,500 mg Q12HR GT 07/09/16 22:00 08/08/16 21:59 07/10/16 09:03 Lorazepam (Ativan 2mg/ml 1ml) 2 mg Q2H PRN IV For Anxiety 07/09/16 18:00 07/16/16 17:59 Morphine Sulfate (Morphine Sulfate) 4 mg Q4H PRN IVP Severe Pain (Pain Scale 7-10) 07/09/16 18:00 07/16/16 17:59 Ondansetron HCl (Zofran) 4 mg Q6H PRN IVP Nausea & Vomiting 07/09/16 18:00 08/08/16 17:59 Piperacillin Sod/ Tazobactam Sod 3.375 gm/Sodium Chloride 110 ml @ 220 mls/hr Q6H IVPB 07/10/16 14:00 07/17/16 13:59 Polyethylene Glycol (Miralax) 17 gm DAILYPRN PRN ORAL Constipation 07/09/16 18:00 08/08/16 17:59 Propranolol HCl (Inderal) 10 mg Q12HR GT 07/09/16 21:00 08/08/16 20:59 Vancomycin HCl 1 ea 1 ea DAILY PRN MISC PER RX PROTOCOL 07/09/16 19:30 08/08/16 19:29 Vancomycin HCl/ Sodium Chloride (Vancomycin/ Sodium Chloride) 275 ml @ 183.3 mls/ hr Q12HR@0000,1200 IVPB 07/10/16 14:30 07/15/16 14:29 Zinc Sulfate (Zinc Sulfate) 220 mg DAILY GT 07/10/16 09:00 08/09/16 08:59 07/10/16 09:01 Assessment/Plan Problem List: (1) Gross hematuria ICD Codes: R31.0 - Gross hematuria SNOMED: 775657723 (2) Chronic respiratory failure ICD Codes: J96.10 - Chronic respiratory failure, unspecified whether with hypoxia or hypercapnia SNOMED: 77882467 (3) Anemia ICD Codes: D64.9 - Anemia, unspecified SNOMED: 235923355 (4) Ventilator dependent ICD Codes: Z99.11 - Dependence on respirator [ventilator] status SNOMED: 630140312 (5) Liver cirrhosis ICD Codes: K74.60 - Unspecified cirrhosis of liver SNOMED: 97866622 (6) Decubitus ulcer ICD Codes: L89.90 - Pressure ulcer of unspecified site, unspecified stage SNOMED: 254975588 (7) Ascites ICD Codes: R18.8 - Other ascites SNOMED: 141076576 (8) Hyponatremia ICD Codes: E87.1 - Hypo-osmolality and hyponatremia SNOMED: 64750658 Assessment/Plan prbc prn sputum for c/s hem evaluation for anemia check h/h dvt prophylaxis DANTE HSIEH July 10, 2016 12:08
--- NOTE | 2016-07-10 13:28 | GI Initial Consult Note ---
History of Present Illness General Date patient seen: July 10, 2016 Time patient seen: 10:00 Reason for Hospitalization: Male Urogenital Problems Referring physician: DANTE MACIAS Reason for Consultation: ANEMIA Present Illness HPI Patient is a 55-year-old male who presented after increased gross hematuria. The patient had a history of indwelling Colon catheter. patient denied any recent catheter migration. Patient had been noted to have increased blood in his urine for past 2 days. Patient was noted to be trach and ventilator dependent. He had not been any fever. He denies any chest pain or shortness of breath. GI CONSULT: HPI noted. GI consulted for anemia. ROS limited, patient seen on floor with signs of hemoptysis in tracheostomy. GT dependent patient; C/D/I. The patient present today with anemia 2/2 to acute blood loss; hematuria vs GI bleed vs hemoptysis. Hgb 6.8. LFTs abnormal with hypoalbuminemia with history of cirrhosis. Unknown history of endoscopic procedures. Home Meds Reported Medications Levetiracetam* (LEVETIRACETAM*) 100 Mg/1 Ml Solution, 1500 MG GT Q12HR 07/09/16 Protein Supplement (PROMOD) 946 Ml Liquid, 30 ML GT TID 07/09/16 Multivitamin With Minerals (MULTIVITAMINS WITH MINERALS*) 1 Each Tablet, 1 TAB GT DAILY 07/09/16 Ibuprofen (Advil Children's) 100 Mg/5 Ml Oral.susp, 200 MG GT Q6H Y for For Pain 07/09/16 Furosemide* (LASIX*) 20 Mg Tablet, 20 MG GT DAILY 07/09/16 Folic Acid* (FOLIC ACID*) 1 Mg Tablet, 1 MG GT DAILY 07/09/16 Ferrous Sulfate* (FERROUS SULFATE*) 325 Mg Tablet, 325 MG GT DAILY, 0 Refills 07/09/16 Lorazepam* (ATIVAN*) 1 Mg Tablet, 1 MG ORAL Q6HR Y for For Anxiety, TAB 07/09/16 Magnesium Hydroxide* (MILK OF MAGNESIA*) 400 Mg/5 Ml Oral.susp, 30 ML GT QHS 07/09/16 Famotidine (FAMOTIDINE) 20 Mg Tablet, 20 MG GT DAILY, 0 Refills 07/09/16 Na Phos,M-B/Na Phos,Di-Ba* (FLEET ENEMA*) 133 Ml Enema, 133 ML RECTAL EVERY TWO DAYS Y for Constipation, ML 0 Refills 05/24/16 Bisacodyl (DULCOLAX) 10 Mg Supp.rect, 10 MG RC DAILY Y for Constipation, SUPP 05/24/16 Acetaminophen 160MG/5ML* (ACETAMINOPHEN*) 160 Mg/5 Ml Elixir, 20 ML ORAL EVERY 4 HOURS Y for For Pain, ML 05/24/16 Cran/Vitc/Mannose/Inulin/Brom (UTI-STAT LIQUID) 3,875 Mg/30 Ml Liquid, 3875 MG GT DAILY, ML 05/24/16 Ascorbic Acid* (VITAMIN C*) 500 Mg Tablet, 500 MG GT DAILY, #30 TAB 0 Refills 05/24/16 Zinc Sulfate (ZINC SULFATE*) 220 Mg Capsule, 220 MG GT DAILY, CAP 0 Refills 05/24/16 Propranolol Hcl* (INDERAL*) 10 Mg Tablet, 10 MG GT BID, #90 TAB 0 Refills 05/24/16 Lactulose (LACTULOSE*) 20 Gm/30 Ml Solution, 30 ML GT QID, ML 0 Refills 05/24/16 Discontinued Reported Medications Rifaximin* (XIFAXAN*) 550 Mg Tablet, 550 MG GT TWICE A DAY for 30 Days, MG 0 Refills 05/24/16 Discontinued Scripts Tigecycline (TYGACIL) 50 Mg Vial, 50 MG IVPB EVERY 12 HOURS, #14 VIAL Prov:Bryant Reynoso)Sydnie NP 06/16/16 Med list reviewed/reconciled: Yes Allergies: Coded Allergies: No Known Allergies (Unverified , 06/09/16) Patient History Limited by: medical condition History Provided By: Medical Record PMH Narrative Allergies: Coded Allergies: No Known Allergies (Unverified , 06/09/16) Patient History Reviewed Nursing Documentation: PMH: Agreed, PSxH: Agreed Review of Systems All Other Systems: limited Physical Exam Vital Signs Date Time Temp Pulse Resp B/P Pulse Ox O2 Delivery O2 Flow Rate FiO2 07/09/16 14:47 92 20 96/52 99 Mechanical Ventilator 40 07/09/16 15:09 98.0 Sp02 EP Interpretation: reviewed Labs Laboratory Tests Test 07/09/16 15:18 07/09/16 15:23 07/10/16 04:30 White Blood Count 10.6 K/UL (4.8-10.8) 9.7 K/UL (4.8-10.8) Red Blood Count 1.84 M/UL (4.70-6.10) L 2.11 M/UL (4.70-6.10) L Hemoglobin 6.7 G/DL (14.2-18.0) *L 6.8 G/DL (14.2-18.0) *L Hematocrit 18.2 % (42.0-52.0) L 19.4 % (42.0-52.0) L Mean Corpuscular Volume 99 FL (80-99) 92 FL (80-99) Mean Corpuscular Hemoglobin 36.3 PG (27.0-31.0) H 32.3 PG (27.0-31.0) H Mean Corpuscular Hemoglobin Concent 36.8 G/DL (32.0-36.0) H 35.1 G/DL (32.0-36.0) Red Cell Distribution Width 14.0 % (11.6-14.8) 16.4 % (11.6-14.8) H Platelet Count 80 K/UL (150-450) L 63 K/UL (150-450) L Mean Platelet Volume 5.2 FL (6.5-10.1) L 6.3 FL (6.5-10.1) L Neutrophils (%) (Auto) % (45.0-75.0) % (45.0-75.0) Lymphocytes (%) (Auto) % (20.0-45.0) % (20.0-45.0) Monocytes (%) (Auto) % (1.0-10.0) % (1.0-10.0) Eosinophils (%) (Auto) % (0.0-3.0) % (0.0-3.0) Basophils (%) (Auto) % (0.0-2.0) % (0.0-2.0) Differential Total Cells Counted 100 100 Neutrophils % (Manual) 59 % (45-75) 79 % (45-75) H Lymphocytes % (Manual) 14 % (20-45) L 4 % (20-45) L Monocytes % (Manual) 7 % (1-10) 2 % (1-10) Eosinophils % (Manual) 5 % (0-3) H 0 % (0-3) Basophils % (Manual) 0 % (0-2) 0 % (0-2) Myelocytes % 1 % (0-0) H Band Neutrophils 14 % (0-8) H 15 % (0-8) H Platelet Estimate Decreased L Decreased L Platelet Morphology Normal Normal Polychromasia 1+ Hypochromasia 2+ 1+ Anisocytosis 1+ 1+ Macrocytosis 1+ Prothrombin Time 15.8 SEC (9.30-11.50) H Prothromb Time International Ratio 1.5 (0.9-1.1) H Activated Partial Thromboplast Time 38 SEC (23-33) H Sodium Level 119 mEQ/L (135-145) *L 123 mEQ/L (135-145) L Potassium Level 4.6 mEQ/L (3.4-4.9) 4.5 mEQ/L (3.4-4.9) Chloride Level 80 mEQ/L (98-107) L 87 mEQ/L (98-107) L Carbon Dioxide Level 24 mEQ/L (20-30) 22 mEQ/L (20-30) Anion Gap 15 (5-15) 14 (5-15) Blood Urea Nitrogen 15 mg/dL (7-23) 19 mg/dL (7-23) Creatinine 0.5 mg/dL (0.7-1.2) L 0.4 mg/dL (0.7-1.2) L Estimat Glomerular Filtration Rate > 60 mL/min (>60) > 60 mL/min (>60) Glucose Level 91 mg/dL (74-106) 91 mg/dL (74-106) Lactic Acid Level 3.80 mmol/L (0.66-2.22) H Calcium Level 8.9 mg/dL (8.6-10.2) 7.9 mg/dL (8.6-10.2) L Total Bilirubin 1.3 mg/dL (0.0-1.2) H Direct Bilirubin 0.5 mg/dL (0.1-0.3) H Aspartate Amino Transf (AST/SGOT) 36 U/L (5-40) Alanine Aminotransferase (ALT/SGPT) 16 U/L (3-41) Alkaline Phosphatase 211 U/L (40-129) H Total Creatine Kinase 15 U/L (38-174) L Creatine Kinase MB < 1.5 ng/mL (< 6.7) Creatine Kinase MB Relative Index Troponin I < 0.30 ng/mL (<=0.30) Total Protein 6.5 g/dL (6.6-8.7) L Albumin 2.7 g/dL (3.5-5.2) L 2.0 g/dL (3.5-5.2) L Globulin 3.8 g/dL Albumin/Globulin Ratio 0.7 (1.0-2.7) L Arterial Blood pH 7.464 (7.350-7.450) Arterial Blood Partial Pressure CO2 29.6 mmHg (35.0-45.0) L Arterial Blood Partial Pressure O2 83.7 mmHg (75.0-100.0) Arterial Blood HCO3 20.8 mmol/L (22.0-26.0) L Arterial Blood Oxygen Saturation 95.8 % (92.0-98.0) Arterial Blood Base Excess -2.6 Primitivo Test Positive Reticulocyte Count 2.9 % (0.0-2.0) H Haptoglobin 98 mg/dL (30-200) Phosphorus Level 3.9 mg/dL (2.5-4.8) Iron Level 47 ug/dL (59-158) L Total Iron Binding Capacity 134 ug/dL (250-400) L Percent Iron Saturation 35 % (15-50) Unsaturated Iron Binding 87 ug/dL (112-346) L Ferritin 284 ng/mL (10-230) H Hepatitis A IgM Antibody Pending Hepatitis B Surface Antigen Pending Hepatitis B Core IgM Antibody Pending Hepatitis C Antibody Pending HIV (1&2) Antibody Rapid Negative (NEGATIVE) General Appearance: no apparent distress Neck: tracheotomy - blood noted [facility] Cardiovascular: normal rate Gastrointestinal: gt - c/d/i Rectal: deferred Musculoskeletal: back normal Neurologic: normal inspection, alert, oriented x3 Psychiatric: normal inspection Skin: normal color Lymphatic: normal inspection, no adenopathy Current Medications Current Medications Medications (Trade) Dose Ordered Sig/Hair Route PRN Reason Start Time Stop Time Status Last Admin Dose Admin Acetaminophen (Tylenol) 650 mg Q4H PRN ORAL FEVER 07/09/16 18:00 08/08/16 17:59 Albuterol/ Ipratropium (DuoNeb 0.5-3(2.5)mg/3ml) 3 ml Q4H PRN HHN Shortness of Breath 07/09/16 18:00 07/14/16 17:59 Dextrose (Dextrose 50%) STAT PRN IV Hypoglycemia 07/09/16 18:00 08/08/16 17:59 Dextrose/Sodium Chloride 1,000 ml @ 75 mls/hr [id number] IV 07/09/16 20:30 08/08/16 20:29 07/10/16 10:52 Lactulose (Cephulac) 20 gm QID GT 07/09/16 20:00 08/08/16 19:59 07/10/16 09:01 Levetiracetam (Keppra) 1,500 mg Q12HR GT 07/09/16 22:00 08/08/16 21:59 07/10/16 09:03 Lorazepam (Ativan 2mg/ml 1ml) 2 mg Q2H PRN IV For Anxiety 07/09/16 18:00 07/16/16 17:59 Morphine Sulfate (Morphine Sulfate) 4 mg Q4H PRN IVP Severe Pain (Pain Scale 7-10) 07/09/16 18:00 07/16/16 17:59 Ondansetron HCl (Zofran) 4 mg Q6H PRN IVP Nausea & Vomiting 07/09/16 18:00 08/08/16 17:59 Piperacillin Sod/ Tazobactam Sod 3.375 gm/Sodium Chloride 110 ml @ 220 mls/hr Q6H IVPB 07/10/16 14:00 07/17/16 13:59 Polyethylene Glycol (Miralax) 17 gm DAILYPRN PRN ORAL Constipation 07/09/16 18:00 08/08/16 17:59 Propranolol HCl (Inderal) 10 mg Q12HR GT 07/09/16 21:00 08/08/16 20:59 Vancomycin HCl 1 ea 1 ea DAILY PRN MISC PER RX PROTOCOL 07/09/16 19:30 08/08/16 19:29 Vancomycin HCl/ Sodium Chloride (Vancomycin/ Sodium Chloride) 275 ml @ 183.3 mls/ hr Q12HR@0000,1200 IVPB 07/10/16 14:30 07/15/16 14:29 Zinc Sulfate (Zinc Sulfate) 220 mg DAILY GT 07/10/16 09:00 08/09/16 08:59 07/10/16 09:01 GI: Plan Problems: (1) Liver cirrhosis (2) Gross hematuria (3) Ventilator dependent (4) Anemia (5) Ascites Plan EGD cancelled today due to no consent >> will consider for wednesday monitor H&H, transfuse prn >> 2 units today anemia work up OB stool uncollected ppi maintain NPO + IVFs fu hep panel cont propranolol (hold for SBP < 100, HR < 60) cont lactulose, will add Xifaxan fu labs Discussed with Dr. Arndt. Thank you for referring this patient, we will follow. Paulette Romero N.P. July 10, 2016 13:28
[2016-07-10] MEDS ORDERED: Miralax 17gm pkt GT PRN (13:38)
[2016-07-10] MEDS ORDERED: [UNRECOGNIZED DRUG - REMARK] MISC PRN (13:45)
[2016-07-10] MEDS ORDERED: Piperacillin/Tazobactam 3.375 GM in NS 110 ML IVPB SCH (14:00)
--- NOTE | 2016-07-10 15:54 | Consultation ---
Consult Note Consult Note ID CONSULT: Wendy# [id number] Assessment/Plan ASSESSMENT: 55 y/o male with: // GPC clusters bacteremia 06/02 ?urinary vs pulmonary source r/o SBE ( no lines ) - C&S pending // Recurrent gross hematuria r/o recurrent UTI - clearing, no UA or culture sent - h/o KPC-K.pneumoniae, C.tropicalis - CT A/P 04/2016: No calculus is identified within either kidney, along the expected course of the ureters or within the urinary bladder. There is no evidence of hydronephrosis or asymmetric perirenal inflammatory change. The urinary bladder is decompressed with an indwelling Colon catheter. Air pockets within the urinary bladder likely reflect sequela of recent instrumentation/ catheterization. // Possible HCAP / VAP - SCx pending - CXR: Patchy infiltrates versus asymmetric pulmonary edema. Lung disease appears worse. // Stage IV sacral debuitus ulcer POA, not grossly infected - surveillance WCx pending // Negative HIV // Afebrile without leukocytosis // Severe anemia - transfusing, GI following, EGD planned // Chronic liver disease / cirrhosis with elevated LFTs, hyponatremia, hypoalbuminemia, coagulopathy, TCP, chronic anemia // Chronic VDRF SP trach, PEG // h/o CVA // [facility] resident // MDRO colonized // NKDA // Full Code PLAN: - continue empiric IV vancomycin, zosyn d# 1 pending cultures - repeat BCx in AM - send delayed UA, UCx - check TTE - monitor CBC, temperatures - monitor BMP - monitor CXR - vent support, trach care, aspiration precaution - wound care Thanks! Will follow JO CABRERA July 10, 2016 15:54
[2016-07-10] MEDS: Vancomycin 1 GM in NS 275 ML IVPB SCH (16:34)
[2016-07-10] MEDS ORDERED: NS 275ml ONE ×2 (17:27→19:01)
[2016-07-10] MEDS ORDERED: Tubing Blood Filter IV ONE (17:27)
[2016-07-10] MEDS ORDERED: Tubing IV Secondary IV ONE (19:01)
[2016-07-10] MEDS ORDERED: D5NS 1000ml IV ONE (19:01)
--- NOTE | 2016-07-10 21:09 | Consultation ---
DATE OF CONSULTATION: 07/10/2016 NEPHROLOGY CONSULTATION: CONSULTING PHYSICIAN: Anum Garvin M.D. ATTENDING PHYSICIAN: Uma Breen M.D. REFERRING PHYSICIAN: Uma Breen M.D. REASON FOR CONSULTATION: 1. Severe hyponatremia. 2. Hematuria. HISTORY OF PRESENT ILLNESS: The patient is an unfortunate 56-year-old male with past medical history significant for a history of chronic respiratory failure and history of trach and PEG, was sent to emergency room at [facility] for gross hematuria. The patient has a history of chronic indwelling catheter placement. The patient also found to have hemoglobin of 6.7 and upon arrival, the patient found to have sodium of 119, consequently was admitted in step-down unit. I was called for management of renal disease and electrolyte imbalance. MEDICATIONS: Medication at home are including, 1. Ascorbic acid. 2. Famotidine. 3. Folic acid. 4. Levetiracetam. 5. MVI. 6. Propranolol 10 mg p.o. daily. 7. Protein supplement. 8. Ibuprofen p.r.n. 9. Lorazepam. 10. Tylenol 650 mg q.6 h. p.r.n. pain. SOCIAL HISTORY: longterm resident. There is no current history of tobacco, alcohol, or drug use. FAMILY HISTORY: Noncontributory. ALLERGIES: No known drug allergies. REVIEW OF SYSTEMS: Unable to obtain due to the patient's condition and impaired mental status. PHYSICAL EXAMINATION: VITAL SIGNS: The patient has temperature of 98.0 degrees, blood pressure 93/51, pulse rate 78, and respiratory rate 18. HEENT: Head and neck, no JVP, no LAD, and no thyromegaly. Trach is in place. Extraocular movement is intact. Pupils are reactive to light and accommodation. CHEST: Lungs are clear to auscultation. CARDIAC: Regular rate and rhythm. S1 and S2. No murmur. No rub. ABDOMEN: Soft, nontender, and nondistended. EXTREMITIES: Trace edema. No clubbing. No cyanosis. LABORATORY VALUE: The patient has sodium of 119, potassium 4.6, chloride 80, bicarbonate 24, BUN 15, and creatinine 0.5. Total bilirubin is 1.3 and direct bilirubin 0.5. AST is 36, ALT 16, and alkaline phosphatase 211. Total protein is 6.5 and albumin 2.7. CBC revealed WBC count of 10.6, hemoglobin 6.7, hematocrit 18, and platelet count 80,000. There is no UA. ASSESSMENT: 1. Hypovolemic hyponatremia, based on the vital signs, on examination, the patient seems to be hypovolemic at this time. 2. Hypocalcemia. 3. Gross hematuria. PLAN: Plan for the patient is to give magnesium sulfate intravenous piggyback with normal saline. Broad-spectrum antibiotics. Check the random urine protein and creatinine ratio to calculate the proteinuria. Check the urine sodium and creatinine to calculate fractional excretion of sodium. I would start the patient on intravenous fluid of normal saline at 50mL per hour. I would avoid any non-steroidal antiinflammatory drugs and nephrotoxic. I would like to thank, Dr. Breen, for allowing me to participate in the care of this patient. Anum Garvin M.D. DR: Paul JOB#: [id number] CC:
--- NOTE | 2016-07-10 22:06 | Wound Care Consultation ---
Wound Assessment Wound Assessment #1: Wound Present on Admission: Yes New Wound: No Status Change of Wound: No Wound Location Body Site Modif: mid Wound Location Body Site: sacral Wound Type: pressure ulcer Marlin Test: Does not Marlin Pressure Ulcer Stage: IV/unstageable Wound Thickness: Full Thickness Wound Length: 5.0 Wound Width: 5.0 Wound Depth: 2.0 Percent of Wound [place]/Red: 90 Percent of Wound Bed Yellow/Wh: 10 - scattered Wound Drainage Description: Serosanguineous Wound Drainage Amount: Copious Wound Drainage Odor: None/Absent Tissue Surrounding Wound: Macerated Wound Undermining at 3:00: 2.5 Wound General Appearance: Reddened, Draining Wound Assessment #2: Wound Number: #3 Wound Present on Admission: Yes New Wound: No Status Change of Wound: No Wound Location Body Site Modif: right Wound Location Body Site: buttocks Wound Type: pressure ulcer Marlin Test: Does not Marlin Wound Thickness: Full Thickness - scar tissue Wound Length: 3.0 Wound Width: 2.0 Wound Depth: utd Percent of Wound [place]/Red: 100 Wound Drainage Amount: None Wound Drainage Odor: None/Absent Tissue Surrounding Wound: Intact Wound General Appearance: Asymptomatic, Reddened Wound Comment #1 Sacral stage IV pressure ulcer #2 Right buttock with full thickness scar tissue Recommendation -Sacral pressure ulcer Cleanse with saline, pat dry, apply hydrogel to wound bed, apply calcium alginate, cover with Biatain silicone daily and PRN soiled/dislodged -Turn and reposition -Keep clean and dry -Low air loss mattress -Optimize nutrition -Offload both heels -Heel protector on both heels -Assess and f/u accordingly for any changes REINALDO DIAZ RN July 10, 2016 22:06
[2016-07-10] MEDS: Rifaximin 550mg tab GT SCH (22:45)
--- NOTE | 2016-07-10 23:09 | Consultation ---
DATE OF CONSULTATION: 07/10/2016 INFECTIOUS DISEASE CONSULTATION: CONSULTING PHYSICIAN: Nader Mcleod M.D. ATTENDING PHYSICIAN: Uma Breen M.D. REFERRING PHYSICIAN: Uma Breen M.D. REQUESTING PHYSICIAN: Uma Breen M.D. REASON FOR CONSULTATION: Bacteremia. HISTORY OF PRESENT ILLNESS: This is a 56-year-old male, [facility] resident with a history of chronic ventilator-dependent respiratory failure, status post tracheostomy and PEG, admitted on 07/09/2016 with gross hematuria. He has a chronic indwelling Colon catheter. Hematuria is now clearing. He has severe anemia and is being transfused. He has following implants upper endoscopy. Hospital course is complicated by bacteremia. Blood cultures are growing Gram-positive cocci and clusters in 4/4 sets. He has no fevers or leukocytosis. Also evidence of sacral decubitus. Wound culture is not grossly infected and chest x-ray is showing patchy infiltrates versus asymmetric pulmonary edema. His sputum cultures are pending and urine culture has been sent. He has been started on empiric IV vancomycin and Zosyn and ID now consulted to assist in management. PAST MEDICAL HISTORY: 1. Seizure disorder. 2. Chronic ventilator-dependent respiratory failure. 3. Chronic anemia. 4. Thrombocytopenia. 5. Chronic liver disease and cirrhosis. 6. History of stroke. 7. History of recurrent UTIs. 8. Stage IV sacral decubitus ulcer. PAST SURGICAL HISTORY: 1. Tracheostomy. 2. PEG tube placement. FAMILY HISTORY: Noncontributory. SOCIAL HISTORY: The patient is a resident of a correction. No active tobacco, alcohol, or illicit drug abuse. ALLERGIES: No known drug allergies. MEDICATIONS: 1. Vancomycin day #1. 2. Zosyn day #1. 3. Rifaximin. 4. Lasix. 5. Keppra. 6. Propranolol. 7. Lactulose. REVIEW OF SYSTEMS: Unable to obtain. PHYSICAL EXAMINATION: VITAL SIGNS: Maximum temperature is 98.3 degrees, blood pressure 93/51, heart rate in 80s, respiratory rate 20, and saturating 100% on 35% FiO2. GENERAL: The patient is awake on the ventilator. HEENT: Tracheostomy tube in place. CARDIOVASCULAR: Regular rate and rhythm. No murmurs. PULMONARY: Clear to auscultation bilaterally. ABDOMEN: Bowel sounds present. Soft. Mild distention and nontender. PEG tube in place after his Colon catheter. EXTREMITIES: Edema. LABORATORY DATA: White blood cell count is 9.7, hemoglobin 6.8, and platelets 63,000. Sodium is 123, potassium 4.3, chloride 87, bicarbonate 22, BUN 19, and creatinine 0.4. Lactic acid is 2.8. AST is 36, ALT 16, and alkaline phosphatase 211. Total bilirubin is 1.3. Albumin is 2.7. Troponin is negative x1. MICROBIOLOGY: 1. On 07/09/2016, sickle decubitus wound culture pending. 2. On 07/09/2016, blood culture Gram-positive cocci and clusters in 4/4 sets. 3. On 07/10/2016, sputum culture pending. IMAGIN. On 07/10/2016, bilateral lower extremity Doppler ultrasound is negative for DVT. 2. On 07/09/2016, chest x-ray with patchy infiltrates versus asymmetric pulmonary edema. ASSESSMENT: 1. Gram-positive cocci and clusters bacteremia, in 4/4 sets, question urinary versus pulmonary source, rule out endocarditis. No lines were present on admission. Culture and sensitivity is pending. 2. Recurrent gross hematuria, rule out recurrent urinary tract infection. The urine is clearing and no urinalysis or culture has been sent. He has a history of growth of Carbapenem resistant Klebsiella pneumoniae and Sonja tropicalis. A CT abdomen and pelvis in April 2016 showed no calculi, hydronephrosis, or inflammatory change. 3. Possible healthcare-associated pneumonia/ventilator- associated pneumonia. Sputum culture is pending. Chest x-ray shows patchy infiltrate versus asymmetric pulmonary edema. 4. Stage IV sacral decubitus ulcer, present on admission and not grossly infected. Surveillance wound culture is pending. 5. Negative human-immunodeficiency virus. 6. Afebrile without leukocytosis. 7. Severe anemia, transfusion. Gastroenterology is following and upper endoscopy is planned. 8. Chronic liver disease/cirrhosis with elevated liver function tests, hyponatremia, hypoalbuminemia, coagulopathy, thrombocytopenia, and chronic anemia. 9. Chronic ventilator-dependent respiratory failure, status post tracheostomy and percutaneous endoscopic gastrostomy tube. 10. History of stroke. 11. intermediate resident. 12. Multi-drug resistant organism colonized. 13. No known drug allergies. 14. Full Code. PLAN: 1. Continue empiric IV vancomycin and Zosyn day #1 pending cultures. 2. Repeat blood cultures in the morning to document clearance. 3. Check echocardiogram, rule out endocarditis. 4. Send delayed urinalysis and culture. 5. Monitor CBC and temperatures. 6. Monitor BMP. 7. Monitor chest x-ray. 8. Ventilator support tracheostomy care and aspiration precautions. 9. Wound care. Thank you. We will follow. Nader Mcleod M.D. DR: Cassandra JOB#: [id number] CC: Uma Breen M.D.; Fax#: [phone] Alborzi, M.D ; Fax#: [phone] Smith, M.D.
[2016-07-11] VITALS: BP 136/65
[2016-07-11] MEDS: Vancomycin 1 GM in NS 275 ML IVPB SCH ×2 (00:07→12:11)
--- NOTE | 2016-07-11 00:39 | Consultation ---
DATE OF CONSULTATION: 07/10/2016 CONSULTING PHYSICIAN: Elia Montana M.D. REASON FOR CONSULTATION: Gross hematuria. HISTORY OF PRESENT ILLNESS: I was asked by Dr. Breen to see this patient with gross hematuria. He is a 56-year-old male, who presented with gross hematuria, has a history of indwelling Colon, is respiratory dependent and currently with a catheter. He denies any fever, but he was getting transfusions for severe anemia for the last 24 hours. ALLERGIES: No known allergies. REVIEW OF SYSTEMS: Unable to ascertain, he is not verbal. PHYSICAL EXAMINATION: GENERAL: He is on the ventilator with a tracheostomy, alert and nontoxic. NECK: Supple. RESPIRATORY: Clear to auscultation. CARDIOVASCULAR: Regular rate and rhythm. GENITOURINARY AND GASTROINTESTINAL: Abdomen is slightly distended and nontender. No CVA tenderness. SKIN: Normal on inspection. LABORATORY DATA: Shows white count of 9.7 and hematocrit is 19.4. His potassium was 4.5, sodium 123, and creatinine 0.4. Colon catheter is in place. His scrotal exam is negative and urine in the Colon bag is clear and yellow, and no evidence of gross hematuria. ASSESSMENT: 1. He has indwelling Colon, chronic retention, and gross hematuria, currently asymptomatic and there is no evidence of gross hematuria, right now. 2. Anemia. PLAN: I would continue bladder irrigation for 24 hours. If there is no recurrent hematuria, we will stop and keep the Colon indwelling, current is 24-Ugandan, and we get exchange it later on Wednesday to 18-Ugandan Colon catheter. The patient will need upper trach studies and will order renal ultrasound and follow this patient with you. Elia Montana M.D. DR: Mihaela JOB#: [id number] CC:
[2016-07-11 01:15] LABS: KETONES,URINE 1+ (NEGATIVE); LEUKOCYTE ESTERASE ,URINE 3+ (NEGATIVE); NITRITE,URINE NEGATIVE (NEGATIVE); PH,URINE 5 (4.5-8.0); PROTEIN,URINE 2+ (NEGATIVE); UROBILINOGEN,URINE NORMAL MG/DL (0.0-1.0)
[2016-07-11 01:27] LABS: APPEARANCE,URINE CLOUDY
[2016-07-11 01:29] LABS: BACTERIA,URINE FEW /HPF; RBC,URINE TNTC /HPF (0 - 0); SQUAMOUS EPITHELIAL CELL,UR FEW /LPF (NONE/OCC); WBC,URINE 15-20 /HPF (0 - 0)
[2016-07-11] MEDS: Piperacillin/Tazobactam 3.375 GM in NS 110 ML IVPB SCH ×4 (02:31→20:00)
[2016-07-11 04:00] VITALS: BP 115/62
[2016-07-11 06:15] LABS: MEAN CORPUSCULAR HGB CONC 34.5 G/DL (32.0-36.0); MEAN CORPUSCULAR VOLUME 90 FL (80-99); MEAN PLATELET VOLUME 5.6 FL (6.5-10.1); PLATELET COUNT 83 K/UL (150-450); RED BLOOD COUNT 2.66 M/UL (4.70-6.10); RED CELL DISTRIBUTION WIDTH 16.9 % (11.6-14.8); WHITE BLOOD COUNT 7.2 K/UL (4.8-10.8)
[2016-07-11 06:44] LABS: CREATININE, RANDOM URINE 15.5 mg/dL
[2016-07-11 06:50] LABS: INR 1.6 (0.9-1.1); PROTHROMBIN TIME 16.3 SEC (9.30-11.50)
[2016-07-11 06:54] LABS: ALANINE AMINOTRANSFERASE 12 U/L (3-41); ALBUMIN/GLOBULIN RATIO 0.6 (1.0-2.7); ANION GAP 16 (5-15); ASPARTATE AMINO TRANSFERASE 27 U/L (5-40); CALCIUM 8.2 mg/dL (8.6-10.2); CARBON DIOXIDE 22 mEQ/L (20-30); CHLORIDE 89 mEQ/L (98-107); CREATININE 0.4 mg/dL (0.7-1.2); GLOMERULAR FILTRATION RATE > 60 mL/min (>60); POTASSIUM 3.9 mEQ/L (3.4-4.9); SODIUM 127 mEQ/L (135-145); TOTAL PROTEIN 5.5 g/dL (6.6-8.7)
[2016-07-11 07:01] LABS: FERRITIN 395 ng/mL (10-230)
[2016-07-11 07:12] LABS: BILIRUBIN,DIRECT 1.2 mg/dL (0.1-0.3)
[2016-07-11 07:23] LABS: HEMOLYSIS 2; IRON 40 ug/dL (59-158); TOTAL IRON BINDING CAPACITY 134 ug/dL (250-400)
[2016-07-11 08:00] VITALS: BP 102/56
[2016-07-11] MEDS: Zinc Sulfate 220mg cap GT SCH (08:33)
[2016-07-11] MEDS: Rifaximin 550mg tab GT SCH ×2 (08:33→21:18)
[2016-07-11] MEDS: Lactulose 20gm/30ml UDC GT SCH ×4 (08:33→21:17)
[2016-07-11] MEDS: Propranolol 10mg tab GT SCH ×2 (08:34→21:18)
[2016-07-11] MEDS: levETIRAcetam 500mg/5ml Liquid GT SCH ×2 (08:34→21:19)
--- NOTE | 2016-07-11 08:53 | General Progress Note ---
Assessment/Plan Problem List: (1) Thrombocytopenia ICD Codes: D69.6 - Thrombocytopenia, unspecified SNOMED: 021598788 (2) Elevated LFTs ICD Codes: R94.5 - Abnormal results of liver function studies SNOMED: 145101647 (3) Feeding by G-tube ICD Codes: Z93.1 - Gastrostomy status SNOMED: 458049177, 315184768 (4) hep c (5) Decubitus ulcer ICD Codes: L89.90 - Pressure ulcer of unspecified site, unspecified stage SNOMED: 265143594 (6) Chronic respiratory failure ICD Codes: J96.10 - Chronic respiratory failure, unspecified whether with hypoxia or hypercapnia SNOMED: 45900528 (7) Anemia ICD Codes: D64.9 - Anemia, unspecified SNOMED: 701959379 (8) Liver cirrhosis ICD Codes: K74.60 - Unspecified cirrhosis of liver SNOMED: 25520029 (9) Ventilator dependent ICD Codes: Z99.11 - Dependence on respirator [ventilator] status SNOMED: 657260918 (10) Gross hematuria ICD Codes: R31.0 - Gross hematuria SNOMED: 869863868 Assessment/Plan monitor H&H start low dose GTF kub fu labs abd us Subjective ROS Limited/Unobtainable: No Allergies: Coded Allergies: No Known Allergies (Unverified , 06/09/16) Objective Last 24 Hour Vital Signs Date Time Temp Pulse Resp B/P Pulse Ox O2 Delivery O2 Flow Rate FiO2 07/11/16 08:34 74 102/56 07/11/16 08:00 35 07/11/16 08:00 97.7 74 21 102/56 99 Mechanical Ventilator 35 07/11/16 07:10 75 18 35 07/11/16 05:06 80 20 35 07/11/16 04:00 35 07/11/16 04:00 98.1 88 19 115/62 99 Trach Collar 07/11/16 03:46 86 07/11/16 02:49 89 24 35 07/11/16 00:44 101 27 35 07/11/16 00:00 97.9 96 17 136/65 99 Trach Collar 07/11/16 00:00 35 07/11/16 00:00 89 07/10/16 22:39 85 20 35 07/10/16 21:16 95 26 35 07/10/16 21:00 95 109/59 07/10/16 20:10 98.4 85 18 98/52 98 Mechanical Ventilator 07/10/16 20:00 87 07/10/16 20:00 35 07/10/16 19:03 90 24 35 07/10/16 17:18 91 07/10/16 16:56 92 25 35 07/10/16 16:24 98.2 93 22 99/57 99 Mechanical Ventilator 07/10/16 15:05 93 24 35 07/10/16 13:46 89 07/10/16 13:15 85 21 35 07/10/16 12:00 35 07/10/16 11:42 98.4 83 21 93/51 Mechanical Ventilator 07/10/16 11:14 80 20 35 07/10/16 10:25 35 07/10/16 10:24 78 07/10/16 09:28 85 22 35 07/10/16 09:00 79 93/51 Intake and Output 07/10/16 07/11/16 19:00 07:00 Intake Total 1135.0 ml 1507.0 ml Output Total 1200 ml 1800 ml Balance -65.0 ml -293.0 ml IV Total 835.0 ml 1257.0 ml Blood Product 300 ml 250 ml Output Urine Total 1200 ml 1000 ml Stool Total 800 ml # Bowel Movements 3 Laboratory Tests 07/11/16 00:20: Urine Color Yellow, Urine Appearance Cloudy, Urine pH 5, Urine Specific [place] 1.005, Urine Protein 2+H, Urine Glucose (UA) Negative, Urine Ketones 1+H, Urine Occult Blood 5+H, Urine Nitrite Negative, Urine Bilirubin Negative, Urine Urobilinogen Normal, Urine Leukocyte Esterase 3+H, Urine RBC TntcH, Urine WBC 15 -20H, Urine Squamous Epithelial Cells Few, Urine Bacteria Few, Urine Eosinophils Few seen, Urine Osmolality [Pending], Urine Random Creatinine [ Pending], Urine Random Microalbumin [Pending], Urine Microalbumin/Creatinine Ratio [Pending] 07/11/16 00:30: Stool Occult Blood [Pending] 07/11/16 01:30: Urine Random Total Protein 10, Urine Random Sodium 125, Urine Creatinine 15.5 07/11/16 05:29: White Blood Count 7.2, Red Blood Count 2.66L, Hemoglobin 8.2L, Hematocrit 23.9L , Mean Corpuscular Volume 90, Mean Corpuscular Hemoglobin 31.0, Mean Corpuscular Hemoglobin Concent 34.5, Red Cell Distribution Width 16.9H, Platelet Count 83L, Mean Platelet Volume 5.6L, Neutrophils (%) (Auto) , Lymphocytes (%) (Auto) , Monocytes (%) (Auto) , Eosinophils (%) (Auto) , Basophils (%) (Auto) , Neutrophils % (Manual) [Pending], Lymphocytes % (Manual) [Pending], Platelet Estimate [Pending], Platelet Morphology [Pending], Reticulocyte Count [Pending], Prothrombin Time 16.3H, Prothromb Time International Ratio 1.6H, Activated Partial Thromboplast Time 44H, Sodium Level 127L, Potassium Level 3.9, Chloride Level 89L, Carbon Dioxide Level 22, Anion Gap 16H, Blood Urea Nitrogen 20, Creatinine 0.4L, Estimat Glomerular Filtration Rate > 60, Glucose Level 90, Calcium Level 8.2L, Iron Level 40L, Total Iron Binding Capacity 134L, Percent Iron Saturation 30, Unsaturated Iron Binding 94L , Ferritin 395H, Total Bilirubin 2.9H, Direct Bilirubin 1.2H, Aspartate Amino Transf (AST/SGOT) 27, Alanine Aminotransferase (ALT/SGPT) 12, Alkaline Phosphatase 177H, Total Protein 5.5L, Albumin 2.2L, Globulin 3.3, Albumin/ Globulin Ratio 0.6L, Carcinoembryonic Antigen 2.4, Vitamin B12 Level > 2000H, Folate [Pending], Thyroid Stimulating Hormone (TSH) 2.900, Free Thyroxine 1.32, Hepatitis A IgM Antibody [Pending], Hepatitis B Surface Antigen [Pending], Hepatitis B Core IgM Antibody [Pending], Hepatitis C Antibody [Pending] Height (Feet): 5 Height (Inches): 6.00 Weight (Pounds): 156 General Appearance: lethargic EENT: normal ENT inspection Neck: supple Cardiovascular: normal rate Respiratory/Chest: decreased breath sounds Abdomen: soft, hypoactive bowel sounds, distended, tender Extremities: non-tender BRIA VELASQUEZ July 11, 2016 08:53
[2016-07-11 11:21] LABS: ANISOCYTOSIS 1+; BAND NEUTROPHILS % (MANUAL) 0 % (0-8); BASOPHILS % (MANUAL) 0 % (0-2); EOSINOPHILS % (MANUAL) 1 % (0-3); HYPOCHROMASIA 3+; LYMPHOCYTES % (MANUAL) 7 % (20-45); NEUTROPHILS % (MANUAL) 85 % (45-75); PLATELET ESTIMATE DECREASED; PLATELET MORPHOLOGY NORMAL; TOTAL CELLS COUNTED 100
[2016-07-11 12:00] VITALS: BP 110/60
[2016-07-11] MEDS: D5NS 1,000 ML IV SCH ×2 (12:11→13:34)
--- NOTE | 2016-07-11 12:39 | Pulmonology Progress Note ---
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, renal Discussed with: nurses, consultants, dependency case manager, family member Subjective ROS Limited/Unobtainable: No Interval Events: awake, on ventilator Allergies: Coded Allergies: No Known Allergies (Unverified , 06/09/16) Objective Last 24 Hour Vital Signs Date Time Temp Pulse Resp B/P Pulse Ox O2 Delivery O2 Flow Rate FiO2 07/11/16 12:00 35 07/11/16 09:18 80 23 35 07/11/16 08:34 74 102/56 07/11/16 08:00 35 07/11/16 08:00 77 07/11/16 08:00 97.7 74 21 102/56 99 Mechanical Ventilator 35 07/11/16 07:10 75 18 35 07/11/16 05:06 80 20 35 07/11/16 04:00 35 07/11/16 04:00 98.1 88 19 115/62 99 Trach Collar 07/11/16 03:46 86 07/11/16 02:49 89 24 35 07/11/16 00:44 101 27 35 07/11/16 00:00 97.9 96 17 136/65 99 Trach Collar 07/11/16 00:00 35 07/11/16 00:00 89 07/10/16 22:39 85 20 35 07/10/16 21:16 95 26 35 07/10/16 21:00 95 109/59 07/10/16 20:10 98.4 85 18 98/52 98 Mechanical Ventilator 07/10/16 20:00 87 07/10/16 20:00 35 07/10/16 19:03 90 24 35 07/10/16 17:18 91 07/10/16 16:56 92 25 35 07/10/16 16:24 98.2 93 22 99/57 99 Mechanical Ventilator 07/10/16 15:05 93 24 35 07/10/16 13:46 89 07/10/16 13:15 85 21 35 Intake and Output 07/10/16 07/11/16 19:00 07:00 Intake Total 1135.0 ml 1507.0 ml Output Total 1200 ml 1800 ml Balance -65.0 ml -293.0 ml IV Total 835.0 ml 1257.0 ml Blood Product 300 ml 250 ml Output Urine Total 1200 ml 1000 ml Stool Total 800 ml # Bowel Movements 3 General Appearance: WD/WN HEENT: normocephalic, atraumatic Respiratory/Chest: chest wall non-tender, normal breath sounds Cardiovascular: normal peripheral pulses, normal rate Abdomen: normal bowel sounds, soft, non tender Genitourinary: normal external genitalia Extremities: no cyanosis Skin: no rash Neurologic/Psychiatric: oil treater II-XII grossly normal, no motor/sensory deficits Lymphatic: no neck adenopathy Microbiology Date/Time Source Procedure Growth Status 07/09/16 16:00 Blood Blood Culture - Preliminary Staphylococcus Species Gram Negative Navid Resulted 07/09/16 16:00 Blood Blood Culture - Preliminary Staphylococcus Species Resulted 07/09/16 21:00 Sacral Lower Gram Stain - Final Resulted 07/09/16 21:00 Wound Culture - Preliminary Gram Negative Navid Staphylococcus Species Resulted Laboratory Tests 07/11/16 00:20: Urine Color Yellow, Urine Appearance Cloudy, Urine pH 5, Urine Specific [place] 1.005, Urine Protein 2+H, Urine Glucose (UA) Negative, Urine Ketones 1+H, Urine Occult Blood 5+H, Urine Nitrite Negative, Urine Bilirubin Negative, Urine Urobilinogen Normal, Urine Leukocyte Esterase 3+H, Urine RBC TntcH, Urine WBC 15 -20H, Urine Squamous Epithelial Cells Few, Urine Bacteria Few, Urine Eosinophils Few seen, Urine Osmolality [Pending], Urine Random Creatinine [ Pending], Urine Random Microalbumin [Pending], Urine Microalbumin/Creatinine Ratio [Pending] 07/11/16 00:30: Stool Occult Blood [Pending] 07/11/16 01:30: Urine Random Total Protein 10, Urine Random Sodium 125, Urine Creatinine 15.5 07/11/16 05:29: White Blood Count 7.2, Red Blood Count 2.66L, Hemoglobin 8.2L, Hematocrit 23.9L , Mean Corpuscular Volume 90, Mean Corpuscular Hemoglobin 31.0, Mean Corpuscular Hemoglobin Concent 34.5, Red Cell Distribution Width 16.9H, Platelet Count 83L, Mean Platelet Volume 5.6L, Neutrophils (%) (Auto) , Lymphocytes (%) (Auto) , Monocytes (%) (Auto) , Eosinophils (%) (Auto) , Basophils (%) (Auto) , Differential Total Cells Counted 100, Neutrophils % ( Manual) 85H, Lymphocytes % (Manual) 7L, Monocytes % (Manual) 7, Eosinophils % ( Manual) 1, Basophils % (Manual) 0, Band Neutrophils 0, Platelet Estimate DecreasedL, Platelet Morphology Normal, Hypochromasia 3+, Anisocytosis 1+, Reticulocyte Count [Pending], Prothrombin Time 16.3H, Prothromb Time International Ratio 1.6H, Activated Partial Thromboplast Time 44H, Sodium Level 127L, Potassium Level 3.9, Chloride Level 89L, Carbon Dioxide Level 22, Anion Gap 16H, Blood Urea Nitrogen 20, Creatinine 0.4L, Estimat Glomerular Filtration Rate > 60, Glucose Level 90, Calcium Level 8.2L, Iron Level 40L, Total Iron Binding Capacity 134L, Percent Iron Saturation 30, Unsaturated Iron Binding 94L , Ferritin 395H, Total Bilirubin 2.9H, Direct Bilirubin 1.2H, Aspartate Amino Transf (AST/SGOT) 27, Alanine Aminotransferase (ALT/SGPT) 12, Alkaline Phosphatase 177H, Total Protein 5.5L, Albumin 2.2L, Globulin 3.3, Albumin/ Globulin Ratio 0.6L, Carcinoembryonic Antigen 2.4, Vitamin B12 Level > 2000H, Folate [Pending], Thyroid Stimulating Hormone (TSH) 2.900, Free Thyroxine 1.32, Hepatitis A IgM Antibody [Pending], Hepatitis B Surface Antigen [Pending], Hepatitis B Core IgM Antibody [Pending], Hepatitis C Antibody [Pending] Current Medications Medications (Trade) Dose Ordered Sig/Hair Route PRN Reason Start Time Stop Time Status Last Admin Dose Admin Acetaminophen (Tylenol) 650 mg Q4H PRN ORAL FEVER 07/09/16 18:00 08/08/16 17:59 Albuterol/ Ipratropium (DuoNeb 0.5-3(2.5)mg/3ml) 3 ml Q4H PRN HHN Shortness of Breath 07/09/16 18:00 07/14/16 17:59 Dextrose (Dextrose 50%) STAT PRN IV Hypoglycemia 07/09/16 18:00 08/08/16 17:59 Dextrose/Sodium Chloride 1,000 ml @ 75 mls/hr [id number] IV 07/09/16 20:30 08/08/16 20:29 07/11/16 12:11 Furosemide (Lasix) 20 mg ONCE IV 07/10/16 14:00 08/09/16 13:59 07/10/16 15:24 Iron Sucrose 100 mg/Sodium Chloride 60 ml @ 240 mls/hr BEDTIME IVPB 07/11/16 21:00 07/15/16 21:14 Lactulose (Cephulac) 20 gm QID GT 07/09/16 20:00 08/08/16 19:59 07/11/16 08:33 Levetiracetam (Keppra) 1,500 mg Q12HR GT 07/09/16 22:00 08/08/16 21:59 07/11/16 08:34 Lorazepam (Ativan 2mg/ml 1ml) 2 mg Q2H PRN IV For Anxiety 07/09/16 18:00 07/16/16 17:59 Morphine Sulfate (Morphine Sulfate) 4 mg Q4H PRN IVP Severe Pain (Pain Scale 7-10) 07/09/16 18:00 07/16/16 17:59 Ondansetron HCl (Zofran) 4 mg Q6H PRN IVP Nausea & Vomiting 07/09/16 18:00 08/08/16 17:59 Phytonadione/ Dextrose (Vitamin K/D5W) 56 ml @ 112 mls/hr ONCE ONCE IVPB 07/11/16 12:45 07/11/16 13:14 UNV Piperacillin Sod/ Tazobactam Sod 3.375 gm/Sodium Chloride 110 ml @ 220 mls/hr Q6H IVPB 07/10/16 14:00 07/17/16 13:59 07/11/16 08:33 Polyethylene Glycol 17 gm 17 gm DAILYPRN PRN GT Constipation 07/10/16 13:38 08/08/16 17:59 Propranolol HCl (Inderal) 10 mg Q12HR GT 07/09/16 21:00 08/08/16 20:59 Rifaximin (Xifaxan) 550 mg EVERY 12 HOURS GT 07/10/16 21:00 07/17/16 20:59 07/11/16 08:33 Vancomycin HCl 1 ea 1 ea DAILY PRN MISC PER RX PROTOCOL 07/09/16 19:30 08/08/16 19:29 Vancomycin HCl/ Sodium Chloride (Vancomycin/ Sodium Chloride) 275 ml @ 183.3 mls/ hr Q12HR@0000,1200 IVPB 07/10/16 14:30 07/15/16 14:29 07/11/16 12:11 Zinc Sulfate (Zinc Sulfate) 220 mg DAILY GT 07/10/16 09:00 08/09/16 08:59 07/11/16 08:33 DANTE HSIEH July 11, 2016 12:39
[2016-07-11 13:12] LABS: RETICULOCYTE COUNT 2.2 % (0.0-2.0)
[2016-07-11] MEDS ORDERED: Phytonadione 10 MG in D5W 55 ML IVPB ONE (14:00)
[2016-07-11] MEDS ORDERED: NS 275ml ONE (15:59)
[2016-07-11 16:00] VITALS: BP 116/61
[2016-07-11] MEDS ORDERED: D5NS 1000ml IV ONE (16:20)
[2016-07-11] MEDS ORDERED: Tubing IV Secondary IV ONE (16:20)
--- NOTE | 2016-07-11 16:39 | Nephrology Progress Note ---
Assessment/Plan Assessment 1. Hypovolemic hyponatremia, based on the vital signs, on examination, the patient seems to be hypovolemic at this time. 2. Hypocalcemia. 3. Gross hematuria. Plan plan to continue ns .9 lasix iv mix all ivpb with .9 free water restriction Subjective Constitutional: Reports: no symptoms HEENT: Reports: no symptoms Genitourinary: Reports: no symptoms Neurologic/Psychiatric: Reports: no symptoms Subjective No acute over night awake and alert Objective Objective Last 24 Hour Vital Signs Date Time Temp Pulse Resp B/P Pulse Ox O2 Delivery O2 Flow Rate FiO2 07/11/16 16:00 97.7 75 22 116/61 100 Mechanical Ventilator 35 07/11/16 16:00 35 07/11/16 15:09 76 21 35 07/11/16 13:17 82 22 35 07/11/16 12:00 98.2 86 24 110/60 100 Mechanical Ventilator 35 07/11/16 12:00 90 07/11/16 12:00 35 07/11/16 11:27 76 24 35 07/11/16 09:18 80 23 35 07/11/16 08:34 74 102/56 07/11/16 08:00 35 07/11/16 08:00 77 07/11/16 08:00 97.7 74 21 102/56 99 Mechanical Ventilator 35 07/11/16 07:10 75 18 35 07/11/16 05:06 80 20 35 07/11/16 04:00 35 07/11/16 04:00 98.1 88 19 115/62 99 Trach Collar 07/11/16 03:46 86 07/11/16 02:49 89 24 35 07/11/16 00:44 101 27 35 07/11/16 00:00 97.9 96 17 136/65 99 Trach Collar 07/11/16 00:00 35 07/11/16 00:00 89 07/10/16 22:39 85 20 35 07/10/16 21:16 95 26 35 07/10/16 21:00 95 109/59 07/10/16 20:10 98.4 85 18 98/52 98 Mechanical Ventilator 07/10/16 20:00 87 07/10/16 20:00 35 07/10/16 19:03 90 24 35 07/10/16 17:18 91 07/10/16 16:56 92 25 35 Intake and Output 07/10/16 07/11/16 19:00 07:00 Intake Total 1135.0 ml 1507.0 ml Output Total 1200 ml 1800 ml Balance -65.0 ml -293.0 ml IV Total 835.0 ml 1257.0 ml Blood Product 300 ml 250 ml Output Urine Total 1200 ml 1000 ml Stool Total 800 ml # Bowel Movements 3 Laboratory Tests 07/11/16 00:20: Urine Color Yellow, Urine Appearance Cloudy, Urine pH 5, Urine Specific [place] 1.005, Urine Protein 2+H, Urine Glucose (UA) Negative, Urine Ketones 1+H, Urine Occult Blood 5+H, Urine Nitrite Negative, Urine Bilirubin Negative, Urine Urobilinogen Normal, Urine Leukocyte Esterase 3+H, Urine RBC TntcH, Urine WBC 15 -20H, Urine Squamous Epithelial Cells Few, Urine Bacteria Few, Urine Eosinophils Few seen, Urine Osmolality [Pending], Urine Random Creatinine [ Pending], Urine Random Microalbumin [Pending], Urine Microalbumin/Creatinine Ratio [Pending] 07/11/16 00:30: Stool Occult Blood [Pending] 07/11/16 01:30: Urine Random Total Protein 10, Urine Random Sodium 125, Urine Creatinine 15.5 07/11/16 05:29: White Blood Count 7.2, Red Blood Count 2.66L, Hemoglobin 8.2L, Hematocrit 23.9L , Mean Corpuscular Volume 90, Mean Corpuscular Hemoglobin 31.0, Mean Corpuscular Hemoglobin Concent 34.5, Red Cell Distribution Width 16.9H, Platelet Count 83L, Mean Platelet Volume 5.6L, Neutrophils (%) (Auto) , Lymphocytes (%) (Auto) , Monocytes (%) (Auto) , Eosinophils (%) (Auto) , Basophils (%) (Auto) , Differential Total Cells Counted 100, Neutrophils % ( Manual) 85H, Lymphocytes % (Manual) 7L, Monocytes % (Manual) 7, Eosinophils % ( Manual) 1, Basophils % (Manual) 0, Band Neutrophils 0, Platelet Estimate DecreasedL, Platelet Morphology Normal, Hypochromasia 3+, Anisocytosis 1+, Reticulocyte Count 2.2H, Prothrombin Time 16.3H, Prothromb Time International Ratio 1.6H, Activated Partial Thromboplast Time 44H, Sodium Level 127L, Potassium Level 3.9, Chloride Level 89L, Carbon Dioxide Level 22, Anion Gap 16H , Blood Urea Nitrogen 20, Creatinine 0.4L, Estimat Glomerular Filtration Rate > 60, Glucose Level 90, Calcium Level 8.2L, Iron Level 40L, Total Iron Binding Capacity 134L, Percent Iron Saturation 30, Unsaturated Iron Binding 94L, Ferritin 395H, Total Bilirubin 2.9H, Direct Bilirubin 1.2H, Aspartate Amino Transf (AST/SGOT) 27, Alanine Aminotransferase (ALT/SGPT) 12, Alkaline Phosphatase 177H, Total Protein 5.5L, Albumin 2.2L, Globulin 3.3, Albumin/ Globulin Ratio 0.6L, Carcinoembryonic Antigen 2.4, Vitamin B12 Level > 2000H, Folate [Pending], Thyroid Stimulating Hormone (TSH) 2.900, Free Thyroxine 1.32, Hepatitis A IgM Antibody [Pending], Hepatitis B Surface Antigen [Pending], Hepatitis B Core IgM Antibody [Pending], Hepatitis C Antibody [Pending] 07/11/16 10:00: Stool Occult Blood [Pending] Height (Feet): 5 Height (Inches): 6.00 Weight (Pounds): 156 Objective HEENT: Head and neck, no JVP, no LAD, and no thyromegaly. Trach is in place. Extraocular movement is intact. Pupils are reactive to light and accommodation. CHEST: Lungs are clear to auscultation. CARDIAC: Regular rate and rhythm. S1 and S2. No murmur. No rub. ABDOMEN: Soft, nontender, and nondistended. EXTREMITIES: Trace edema. No clubbing. No cyanosis. ALDEN GUERRERO July 11, 2016 16:39
--- NOTE | 2016-07-11 16:45 | General Progress Note ---
Assessment/Plan Assessment/Plan Assessment and plan: # Hematuria, julisa potentially cervantes catheter trauma # Anemia rule out GI bleed - GI service to evaluate # Thrombocytopenia potentially 2/2 sepsis, elevated lactate, likely 2/2 hepatosplenomegaly # Anemia 2/2 chronic disease - have reviewed iron panel # Hyponatremia potentially 2/2 dehydration # Ventilator dependent - respiratory distress, s/p trach # Cirrhosis # Hepatosplenomegaly # Malnutrition Simeon Don M.D. July 10, 2016 10:40 Subjective Constitutional: Reports: no symptoms HEENT: Reports: no symptoms Cardiovascular: Reports: no symptoms Respiratory: Reports: no symptoms Gastrointestinal/Abdominal: Reports: no symptoms Genitourinary: Reports: no symptoms Neurologic/Psychiatric: Reports: no symptoms Endocrine: Reports: no symptoms Hematologic/Lymphatic: Reports: no symptoms Allergies: Coded Allergies: No Known Allergies (Unverified , 06/09/16) Objective Last 24 Hour Vital Signs Date Time Temp Pulse Resp B/P Pulse Ox O2 Delivery O2 Flow Rate FiO2 07/11/16 16:00 97.7 75 22 116/61 100 Mechanical Ventilator 35 07/11/16 16:00 35 07/11/16 15:09 76 21 35 07/11/16 13:17 82 22 35 07/11/16 12:00 98.2 86 24 110/60 100 Mechanical Ventilator 35 07/11/16 12:00 90 07/11/16 12:00 35 07/11/16 11:27 76 24 35 07/11/16 09:18 80 23 35 07/11/16 08:34 74 102/56 07/11/16 08:00 35 07/11/16 08:00 77 07/11/16 08:00 97.7 74 21 102/56 99 Mechanical Ventilator 35 07/11/16 07:10 75 18 35 07/11/16 05:06 80 20 35 07/11/16 04:00 35 07/11/16 04:00 98.1 88 19 115/62 99 Trach Collar 07/11/16 03:46 86 07/11/16 02:49 89 24 35 07/11/16 00:44 101 27 35 07/11/16 00:00 97.9 96 17 136/65 99 Trach Collar 07/11/16 00:00 35 07/11/16 00:00 89 07/10/16 22:39 85 20 35 07/10/16 21:16 95 26 35 07/10/16 21:00 95 109/59 07/10/16 20:10 98.4 85 18 98/52 98 Mechanical Ventilator 07/10/16 20:00 87 07/10/16 20:00 35 07/10/16 19:03 90 24 35 07/10/16 17:18 91 07/10/16 16:56 92 25 35 Intake and Output 07/10/16 07/11/16 19:00 07:00 Intake Total 1135.0 ml 1507.0 ml Output Total 1200 ml 1800 ml Balance -65.0 ml -293.0 ml IV Total 835.0 ml 1257.0 ml Blood Product 300 ml 250 ml Output Urine Total 1200 ml 1000 ml Stool Total 800 ml # Bowel Movements 3 Laboratory Tests 07/11/16 00:20: Urine Color Yellow, Urine Appearance Cloudy, Urine pH 5, Urine Specific [place] 1.005, Urine Protein 2+H, Urine Glucose (UA) Negative, Urine Ketones 1+H, Urine Occult Blood 5+H, Urine Nitrite Negative, Urine Bilirubin Negative, Urine Urobilinogen Normal, Urine Leukocyte Esterase 3+H, Urine RBC TntcH, Urine WBC 15 -20H, Urine Squamous Epithelial Cells Few, Urine Bacteria Few, Urine Eosinophils Few seen, Urine Osmolality [Pending], Urine Random Creatinine [ Pending], Urine Random Microalbumin [Pending], Urine Microalbumin/Creatinine Ratio [Pending] 07/11/16 00:30: Stool Occult Blood [Pending] 07/11/16 01:30: Urine Random Total Protein 10, Urine Random Sodium 125, Urine Creatinine 15.5 07/11/16 05:29: White Blood Count 7.2, Red Blood Count 2.66L, Hemoglobin 8.2L, Hematocrit 23.9L , Mean Corpuscular Volume 90, Mean Corpuscular Hemoglobin 31.0, Mean Corpuscular Hemoglobin Concent 34.5, Red Cell Distribution Width 16.9H, Platelet Count 83L, Mean Platelet Volume 5.6L, Neutrophils (%) (Auto) , Lymphocytes (%) (Auto) , Monocytes (%) (Auto) , Eosinophils (%) (Auto) , Basophils (%) (Auto) , Differential Total Cells Counted 100, Neutrophils % ( Manual) 85H, Lymphocytes % (Manual) 7L, Monocytes % (Manual) 7, Eosinophils % ( Manual) 1, Basophils % (Manual) 0, Band Neutrophils 0, Platelet Estimate DecreasedL, Platelet Morphology Normal, Hypochromasia 3+, Anisocytosis 1+, Reticulocyte Count 2.2H, Prothrombin Time 16.3H, Prothromb Time International Ratio 1.6H, Activated Partial Thromboplast Time 44H, Sodium Level 127L, Potassium Level 3.9, Chloride Level 89L, Carbon Dioxide Level 22, Anion Gap 16H , Blood Urea Nitrogen 20, Creatinine 0.4L, Estimat Glomerular Filtration Rate > 60, Glucose Level 90, Calcium Level 8.2L, Iron Level 40L, Total Iron Binding Capacity 134L, Percent Iron Saturation 30, Unsaturated Iron Binding 94L, Ferritin 395H, Total Bilirubin 2.9H, Direct Bilirubin 1.2H, Aspartate Amino Transf (AST/SGOT) 27, Alanine Aminotransferase (ALT/SGPT) 12, Alkaline Phosphatase 177H, Total Protein 5.5L, Albumin 2.2L, Globulin 3.3, Albumin/ Globulin Ratio 0.6L, Carcinoembryonic Antigen 2.4, Vitamin B12 Level > 2000H, Folate [Pending], Thyroid Stimulating Hormone (TSH) 2.900, Free Thyroxine 1.32, Hepatitis A IgM Antibody [Pending], Hepatitis B Surface Antigen [Pending], Hepatitis B Core IgM Antibody [Pending], Hepatitis C Antibody [Pending] 07/11/16 10:00: Stool Occult Blood [Pending] Height (Feet): 5 Height (Inches): 6.00 Weight (Pounds): 156 General Appearance: alert EENT: pharynx normal Neck: supple Cardiovascular: normal rate Respiratory/Chest: lungs clear Abdomen: soft Extremities: non-tender Edema: no edema noted Arm (L), no edema noted Arm (R), no edema noted Leg (L), no edema noted Leg (R), no edema noted Pedal (L), no edema noted Pedal (R), no edema noted Generalized Edema: mild edema Neurologic: alert Lymphatic: normal anterior cervical (L), normal anterior cervical (R), normal axillary (L), normal axillary (R), normal inguinal (L), normal inguinal (R), normal other, normal posterior cervical (L), normal posterior cervical (R), normal submandibular (L), normal submandibular (R), normal supraclavicular (L), normal supraclavicular (R) SIMEON DON July 11, 2016 16:45
--- NOTE | 2016-07-11 19:27 | Infectious Diseases Prog Note ---
Assessment/Plan Assessment/Plan ASSESSMENT: 55 y/o male with: // Polymicrobial ( CONS, GNR ) bacteremia 06/02 ?urinary vs pulmonary source r/o SBE ( no lines ) - C&S, repeat BCx pending - TTE(-) SBE // Recurrent gross hematuria r/o recurrent UTI - clearing, no UA or culture sent - h/o KPC-K.pneumoniae, C.tropicalis - CT A/P 04/2016: No calculus is identified within either kidney, along the expected course of the ureters or within the urinary bladder. There is no evidence of hydronephrosis or asymmetric perirenal inflammatory change. The urinary bladder is decompressed with an indwelling Colon catheter. Air pockets within the urinary bladder likely reflect sequela of recent instrumentation/ catheterization. // Possible HCAP / VAP - SCx pending - CXR: Patchy infiltrates versus asymmetric pulmonary edema. Lung disease appears worse. // Stage IV sacral debuitus ulcer POA, not grossly infected - surveillance WCx staph, GNR // Negative HIV // Afebrile without leukocytosis // Severe anemia - transfusing, GI following, EGD planned // Chronic liver disease / cirrhosis with elevated LFTs, hyponatremia, hypoalbuminemia, coagulopathy, TCP, chronic anemia // Chronic VDRF SP trach, PEG // h/o CVA // [facility] resident // MDRO colonized // NKDA // Full Code PLAN: - continue empiric IV vancomycin, zosyn d# 2 pending cultures - f/u cultures - monitor CBC, temperatures - monitor BMP - monitor CXR - vent support, trach care, aspiration precaution - wound care Subjective Allergies: Coded Allergies: No Known Allergies (Unverified , 06/09/16) Subjective remains afebrile cultures noted Objective Vital Signs Last 24 Hour Vital Signs Date Time Temp Pulse Resp B/P Pulse Ox O2 Delivery O2 Flow Rate FiO2 07/11/16 19:01 65 15 35 07/11/16 17:29 65 15 35 07/11/16 16:37 98.2 07/11/16 16:00 97.7 75 22 116/61 100 Mechanical Ventilator 35 07/11/16 16:00 73 07/11/16 16:00 35 07/11/16 15:09 76 21 35 07/11/16 13:17 82 22 35 07/11/16 12:00 98.2 86 24 110/60 100 Mechanical Ventilator 35 07/11/16 12:00 90 07/11/16 12:00 35 07/11/16 11:27 76 24 35 07/11/16 09:18 80 23 35 07/11/16 08:34 74 102/56 07/11/16 08:00 35 07/11/16 08:00 77 07/11/16 08:00 97.7 74 21 102/56 99 Mechanical Ventilator 35 07/11/16 07:10 75 18 35 07/11/16 05:06 80 20 35 07/11/16 04:00 35 07/11/16 04:00 98.1 88 19 115/62 99 Trach Collar 07/11/16 03:46 86 07/11/16 02:49 89 24 35 07/11/16 00:44 101 27 35 07/11/16 00:00 97.9 96 17 136/65 99 Trach Collar 07/11/16 00:00 35 07/11/16 00:00 89 07/10/16 22:39 85 20 35 07/10/16 21:16 95 26 35 07/10/16 21:00 95 109/59 07/10/16 20:10 98.4 85 18 98/52 98 Mechanical Ventilator 07/10/16 20:00 87 07/10/16 20:00 35 Height (Feet): 5 Height (Inches): 6.00 Weight (Pounds): 156 General Appearance: no acute distress Respiratory/Chest: no respiratory distress Cardiovascular: normal rate, regular rhythm Abdomen: normal bowel sounds, soft, non tender, non distended Microbiology Date/Time Source Procedure Growth Status 07/09/16 16:00 Blood Blood Culture - Preliminary Staphylococcus Species Gram Negative Navid Resulted 07/09/16 16:00 Blood Blood Culture - Preliminary Staphylococcus Species Resulted 07/09/16 21:00 Sacral Lower Gram Stain - Final Resulted 07/09/16 21:00 Wound Culture - Preliminary Gram Negative Navid Staphylococcus Species Resulted Laboratory Tests Test 07/11/16 00:20 07/11/16 00:30 07/11/16 01:30 07/11/16 05:29 Urine Color Yellow Urine Appearance Cloudy Urine pH 5 (4.5-8.0) Urine Specific [place] 1.005 (1.005-1.035) Urine Protein 2+ (NEGATIVE) H Urine Glucose (UA) Negative (NEGATIVE) Urine Ketones 1+ (NEGATIVE) H Urine Occult Blood 5+ (NEGATIVE) H Urine Nitrite Negative (NEGATIVE) Urine Bilirubin Negative (NEGATIVE) Urine Urobilinogen Normal MG/DL (0.0-1.0) Urine Leukocyte Esterase 3+ (NEGATIVE) H Urine RBC Tntc /HPF (0 - 0) H Urine WBC 15-20 /HPF (0 - 0) H Urine Squamous Epithelial Cells Few /LPF (NONE/OCC) Urine Bacteria Few /HPF (NONE) Urine Eosinophils Few seen Urine Osmolality Pending Urine Random Creatinine Pending Urine Random Microalbumin Pending Urine Microalbumin/Creatinine Ratio Pending Stool Occult Blood Pending Urine Random Total Protein 10 mg/dL Urine Random Sodium 125 mmol/L Urine Creatinine 15.5 mg/dL White Blood Count 7.2 K/UL (4.8-10.8) Red Blood Count 2.66 M/UL (4.70-6.10) L Hemoglobin 8.2 G/DL (14.2-18.0) L Hematocrit 23.9 % (42.0-52.0) L Mean Corpuscular Volume 90 FL (80-99) Mean Corpuscular Hemoglobin 31.0 PG (27.0-31.0) Mean Corpuscular Hemoglobin Concent 34.5 G/DL (32.0-36.0) Red Cell Distribution Width 16.9 % (11.6-14.8) H Platelet Count 83 K/UL (150-450) L Mean Platelet Volume 5.6 FL (6.5-10.1) L Neutrophils (%) (Auto) % (45.0-75.0) Lymphocytes (%) (Auto) % (20.0-45.0) Monocytes (%) (Auto) % (1.0-10.0) Eosinophils (%) (Auto) % (0.0-3.0) Basophils (%) (Auto) % (0.0-2.0) Differential Total Cells Counted 100 Neutrophils % (Manual) 85 % (45-75) H Lymphocytes % (Manual) 7 % (20-45) L Monocytes % (Manual) 7 % (1-10) Eosinophils % (Manual) 1 % (0-3) Basophils % (Manual) 0 % (0-2) Band Neutrophils 0 % (0-8) Platelet Estimate Decreased L Platelet Morphology Normal Hypochromasia 3+ Anisocytosis 1+ Reticulocyte Count 2.2 % (0.0-2.0) H Prothrombin Time 16.3 SEC (9.30-11.50) H Prothromb Time International Ratio 1.6 (0.9-1.1) H Activated Partial Thromboplast Time 44 SEC (23-33) H Sodium Level 127 mEQ/L (135-145) L Potassium Level 3.9 mEQ/L (3.4-4.9) Chloride Level 89 mEQ/L (98-107) L Carbon Dioxide Level 22 mEQ/L (20-30) Anion Gap 16 (5-15) H Blood Urea Nitrogen 20 mg/dL (7-23) Creatinine 0.4 mg/dL (0.7-1.2) L Estimat Glomerular Filtration Rate > 60 mL/min (>60) Glucose Level 90 mg/dL (74-106) Calcium Level 8.2 mg/dL (8.6-10.2) L Iron Level 40 ug/dL (59-158) L Total Iron Binding Capacity 134 ug/dL (250-400) L Percent Iron Saturation 30 % (15-50) Unsaturated Iron Binding 94 ug/dL (112-346) L Ferritin 395 ng/mL (10-230) H Total Bilirubin 2.9 mg/dL (0.0-1.2) H Direct Bilirubin 1.2 mg/dL (0.1-0.3) H Aspartate Amino Transf (AST/SGOT) 27 U/L (5-40) Alanine Aminotransferase (ALT/SGPT) 12 U/L (3-41) Alkaline Phosphatase 177 U/L (40-129) H Total Protein 5.5 g/dL (6.6-8.7) L Albumin 2.2 g/dL (3.5-5.2) L Globulin 3.3 g/dL Albumin/Globulin Ratio 0.6 (1.0-2.7) L Carcinoembryonic Antigen 2.4 ng/mL Vitamin B12 Level > 2000 pg/mL (211-946) H Folate Pending Thyroid Stimulating Hormone (TSH) 2.900 uIU/mL (0.300-4.500) Free Thyroxine 1.32 ng/dL (0.86-1.85) Hepatitis A IgM Antibody Pending Hepatitis B Surface Antigen Pending Hepatitis B Core IgM Antibody Pending Hepatitis C Antibody Pending Test 07/11/16 10:00 Stool Occult Blood Pending Current Medications Medications (Trade) Dose Ordered Sig/Hair Route PRN Reason Start Time Stop Time Status Last Admin Dose Admin Acetaminophen (Tylenol) 650 mg Q4H PRN ORAL FEVER 07/09/16 18:00 08/08/16 17:59 Albuterol/ Ipratropium (DuoNeb 0.5-3(2.5)mg/3ml) 3 ml Q4H PRN HHN Shortness of Breath 07/09/16 18:00 07/14/16 17:59 Dextrose (Dextrose 50%) STAT PRN IV Hypoglycemia 07/09/16 18:00 08/08/16 17:59 Dextrose/Sodium Chloride (D5ns) 1,000 ml @ 50 mls/hr Q20H IV 07/11/16 13:00 08/10/16 12:59 07/11/16 13:34 Iron Sucrose 100 mg/Sodium Chloride 60 ml @ 240 mls/hr BEDTIME IVPB 07/11/16 21:00 07/15/16 21:14 Lactulose (Cephulac) 20 gm QID GT 07/09/16 20:00 08/08/16 19:59 07/11/16 17:24 Levetiracetam (Keppra) 1,500 mg Q12HR GT 07/09/16 22:00 08/08/16 21:59 07/11/16 08:34 Lorazepam (Ativan 2mg/ml 1ml) 2 mg Q2H PRN IV For Anxiety 07/09/16 18:00 07/16/16 17:59 Morphine Sulfate (Morphine Sulfate) 4 mg Q4H PRN IVP Severe Pain (Pain Scale 7-10) 07/09/16 18:00 07/16/16 17:59 07/11/16 16:07 Ondansetron HCl (Zofran) 4 mg Q6H PRN IVP Nausea & Vomiting 07/09/16 18:00 08/08/16 17:59 Piperacillin Sod/ Tazobactam Sod 3.375 gm/Sodium Chloride 110 ml @ 220 mls/hr Q6H IVPB 07/10/16 14:00 07/17/16 13:59 07/11/16 13:33 Polyethylene Glycol 17 gm 17 gm DAILYPRN PRN GT Constipation 07/10/16 13:38 08/08/16 17:59 Propranolol HCl (Inderal) 10 mg Q12HR GT 07/09/16 21:00 08/08/16 20:59 Rifaximin (Xifaxan) 550 mg EVERY 12 HOURS GT 07/10/16 21:00 07/17/16 20:59 07/11/16 08:33 Vancomycin HCl 1 ea 1 ea DAILY PRN MISC PER RX PROTOCOL 07/09/16 19:30 08/08/16 19:29 Vancomycin HCl/ Sodium Chloride (Vancomycin/ Sodium Chloride) 275 ml @ 183.3 mls/ hr Q12HR@0000,1200 IVPB 07/10/16 14:30 07/15/16 14:29 07/11/16 12:11 Zinc Sulfate (Zinc Sulfate) 220 mg DAILY GT 07/10/16 09:00 08/09/16 08:59 07/11/16 08:33 JO CABRERA July 11, 2016 19:27
[2016-07-11 20:00] VITALS: BP 123/63
[2016-07-11] MEDS: Iron Sucrose 100 MG in NS 55 ML IVPB SCH (21:19)
[2016-07-12 01:07] VITALS: BP 112/63
[2016-07-12] MEDS: Vancomycin 1 GM in NS 275 ML IVPB SCH ×2 (01:48→13:30)
[2016-07-12] MEDS: Piperacillin/Tazobactam 3.375 GM in NS 110 ML IVPB SCH ×4 (01:48→20:50)
[2016-07-12 04:28] VITALS: BP 108/57
[2016-07-12 06:43] LABS: MEAN CORPUSCULAR HGB CONC 33.1 G/DL (32.0-36.0); MEAN CORPUSCULAR VOLUME 91 FL (80-99); MEAN PLATELET VOLUME 6.3 FL (6.5-10.1); PLATELET COUNT 86 K/UL (150-450); RED BLOOD COUNT 3.04 M/UL (4.70-6.10); RED CELL DISTRIBUTION WIDTH 16.6 % (11.6-14.8); WHITE BLOOD COUNT 6.7 K/UL (4.8-10.8)
[2016-07-12 07:00] LABS: AMMONIA 42 umol/L (16-60)
[2016-07-12 07:02] LABS: ALANINE AMINOTRANSFERASE 19 U/L (3-41); ALBUMIN/GLOBULIN RATIO 0.6 (1.0-2.7); ANION GAP 16 (5-15); ASPARTATE AMINO TRANSFERASE 42 U/L (5-40); CALCIUM 8.1 mg/dL (8.6-10.2); CARBON DIOXIDE 22 mEQ/L (20-30); CHLORIDE 93 mEQ/L (98-107); CREATININE 0.3 mg/dL (0.7-1.2); GLOMERULAR FILTRATION RATE > 60 mL/min (>60); HEMOLYSIS 2; POTASSIUM 3.4 mEQ/L (3.4-4.9); SODIUM 131 mEQ/L (135-145); TOTAL PROTEIN 5.6 g/dL (6.6-8.7)
[2016-07-12 07:21] LABS: INR 1.4 (0.9-1.1); PROTHROMBIN TIME 14.5 SEC (9.30-11.50)
[2016-07-12 07:24] LABS: BILIRUBIN,DIRECT 0.8 mg/dL (0.1-0.3)
[2016-07-12 08:00] VITALS: BP 123/66
--- NOTE | 2016-07-12 08:06 | General Progress Note ---
Assessment/Plan Problem List: (1) Thrombocytopenia ICD Codes: D69.6 - Thrombocytopenia, unspecified SNOMED: 959631072 (2) Elevated LFTs ICD Codes: R94.5 - Abnormal results of liver function studies SNOMED: 070824533 (3) Feeding by G-tube ICD Codes: Z93.1 - Gastrostomy status SNOMED: 658014337, 651937725 (4) hep c (5) Decubitus ulcer ICD Codes: L89.90 - Pressure ulcer of unspecified site, unspecified stage SNOMED: 370054140 (6) Chronic respiratory failure ICD Codes: J96.10 - Chronic respiratory failure, unspecified whether with hypoxia or hypercapnia SNOMED: 18029924 (7) Anemia ICD Codes: D64.9 - Anemia, unspecified SNOMED: 583367046 (8) Liver cirrhosis ICD Codes: K74.60 - Unspecified cirrhosis of liver SNOMED: 15573209 (9) Ventilator dependent ICD Codes: Z99.11 - Dependence on respirator [ventilator] status SNOMED: 849075386 (10) Gross hematuria ICD Codes: R31.0 - Gross hematuria SNOMED: 302186325 Assessment/Plan monitor H&H GTF kub fu labs abd us Subjective ROS Limited/Unobtainable: Yes Allergies: Coded Allergies: No Known Allergies (Unverified , 06/09/16) Subjective no event Objective Last 24 Hour Vital Signs Date Time Temp Pulse Resp B/P Pulse Ox O2 Delivery O2 Flow Rate FiO2 07/12/16 07:24 64 16 35 07/12/16 05:18 77 22 35 07/12/16 04:28 97.5 77 22 108/57 100 Mechanical Ventilator 07/12/16 04:00 35 07/12/16 03:40 83 07/12/16 03:09 69 16 35 07/12/16 01:07 97.2 81 24 112/63 100 Mechanical Ventilator 07/12/16 01:01 72 22 35 07/12/16 00:00 35 07/11/16 23:35 82 07/11/16 23:11 76 23 35 07/11/16 21:18 94 123/63 07/11/16 21:12 94 25 35 07/11/16 20:00 35 07/11/16 20:00 98.3 82 18 123/63 100 Mechanical Ventilator 07/11/16 19:35 80 07/11/16 19:01 65 15 35 07/11/16 17:29 65 15 35 07/11/16 16:37 98.2 07/11/16 16:00 97.7 75 22 116/61 100 Mechanical Ventilator 35 07/11/16 16:00 73 07/11/16 16:00 35 07/11/16 15:09 76 21 35 07/11/16 13:17 82 22 35 07/11/16 12:00 98.2 86 24 110/60 100 Mechanical Ventilator 35 07/11/16 12:00 90 07/11/16 12:00 35 07/11/16 11:27 76 24 35 07/11/16 09:18 80 23 35 07/11/16 08:34 74 102/56 Intake and Output 07/11/16 07/12/16 19:00 07:00 Intake Total 9301.0 ml 5347.0 ml Output Total 78719 ml 4200 ml Balance -899.0 ml 1147.0 ml Free Water 200 ml IV Total 1051.0 ml 967.0 ml Tube Feeding 150 ml 330 ml Other 8100 ml 3850 ml Output Urine Total 38435 ml 4200 ml # Bowel Movements 2 2 Laboratory Tests 07/11/16 10:00: Stool Occult Blood [Pending] 07/11/16 23:40: Vancomycin Level Trough 9.9 07/12/16 06:22: White Blood Count 6.7, Red Blood Count 3.04L, Hemoglobin 9.1L, Hematocrit 27.6L , Mean Corpuscular Volume 91, Mean Corpuscular Hemoglobin 30.0, Mean Corpuscular Hemoglobin Concent 33.1, Red Cell Distribution Width 16.6H, Platelet Count 86L, Mean Platelet Volume 6.3L, Neutrophils (%) (Auto) , Lymphocytes (%) (Auto) , Monocytes (%) (Auto) , Eosinophils (%) (Auto) , Basophils (%) (Auto) , Neutrophils % (Manual) [Pending], Lymphocytes % (Manual) [Pending], Platelet Estimate [Pending], Platelet Morphology [Pending], Prothrombin Time 14.5H, Prothromb Time International Ratio 1.4H, Activated Partial Thromboplast Time 42H, Sodium Level 131L, Potassium Level 3.4, Chloride Level 93L, Carbon Dioxide Level 22, Anion Gap 16H, Blood Urea Nitrogen 12, Creatinine 0.3L, Estimat Glomerular Filtration Rate > 60, Glucose Level 119H, Calcium Level 8.1L, Total Bilirubin 1.6H, Direct Bilirubin 0.8H, Aspartate Amino Transf (AST/SGOT) 42H, Alanine Aminotransferase (ALT/SGPT) 19, Alkaline Phosphatase 217H, Ammonia 42, Total Protein 5.6L, Albumin 2.1L, Globulin 3.5, Albumin/Globulin Ratio 0.6L Height (Feet): 5 Height (Inches): 6.00 Weight (Pounds): 156 General Appearance: no apparent distress EENT: normal ENT inspection Neck: supple Cardiovascular: normal rate Respiratory/Chest: decreased breath sounds Abdomen: normal bowel sounds, non tender, soft Extremities: non-tender BRIA VELASQUEZ July 12, 2016 08:06
[2016-07-12 08:08] LABS: BAND NEUTROPHILS % (MANUAL) 0 % (0-8); BASOPHILS % (MANUAL) 1 % (0-2); EOSINOPHILS % (MANUAL) 4 % (0-3); HYPOCHROMASIA 2+; LYMPHOCYTES % (MANUAL) 5 % (20-45); NEUTROPHILS % (MANUAL) 82 % (45-75); PLATELET ESTIMATE DECREASED; PLATELET MORPHOLOGY NORMAL; TOTAL CELLS COUNTED 100
[2016-07-12] MEDS: Lactulose 20gm/30ml UDC GT SCH ×4 (09:00→20:51)
[2016-07-12] MEDS: D5NS 1,000 ML IV SCH (09:02)
[2016-07-12] MEDS ORDERED: Tubing IV Secondary IV ONE (09:26)
[2016-07-12] MEDS ORDERED: NS 275ml ONE (09:26)
[2016-07-12] MEDS ORDERED: NS Irrig 4000ml IRRIG ONE (09:26)
[2016-07-12] MEDS: Propranolol 10mg tab GT SCH ×2 (09:44→20:51)
[2016-07-12] MEDS: Zinc Sulfate 220mg cap GT SCH (09:44)
[2016-07-12] MEDS: Rifaximin 550mg tab GT SCH ×2 (09:44→20:51)
[2016-07-12] MEDS: levETIRAcetam 500mg/5ml Liquid GT SCH ×2 (09:45→20:51)
--- NOTE | 2016-07-12 10:53 | Diagnostic Imaging Report ---
Indication: Abdominal pain Technique: Supine views of the abdomen Comparison: None Findings: Gastrostomy projects over the stomach. Bowel gas pattern is nonobstructive and nonspecific. Degenerative changes of the spine are seen. Impression: Nonobstructive and nonspecific bowel gas pattern. Gastrostomy.
[2016-07-12 12:00] VITALS: BP 104/55
--- NOTE | 2016-07-12 12:05 | General Progress Note ---
Assessment/Plan Status: stable Status Narrative Hematuria resolved. Can be followed as outpatient with possible cystoscopy Assessment/Plan Outpatient cystoscopy Subjective Date patient seen: July 12, 2016 ROS Limited/Unobtainable: Yes Allergies: Coded Allergies: No Known Allergies (Unverified , 06/09/16) Objective Last 24 Hour Vital Signs Date Time Temp Pulse Resp B/P Pulse Ox O2 Delivery O2 Flow Rate FiO2 07/12/16 10:39 72 25 35 07/12/16 09:44 76 123/66 07/12/16 08:47 76 21 35 07/12/16 08:00 98.6 80 21 123/66 99 Mechanical Ventilator 35 07/12/16 08:00 35 07/12/16 07:24 64 16 35 07/12/16 05:18 77 22 35 07/12/16 04:28 97.5 77 22 108/57 100 Mechanical Ventilator 07/12/16 04:00 35 07/12/16 03:40 83 07/12/16 03:09 69 16 35 07/12/16 01:07 97.2 81 24 112/63 100 Mechanical Ventilator 07/12/16 01:01 72 22 35 07/12/16 00:00 35 07/11/16 23:35 82 07/11/16 23:11 76 23 35 07/11/16 21:18 94 123/63 07/11/16 21:12 94 25 35 07/11/16 20:00 35 07/11/16 20:00 98.3 82 18 123/63 100 Mechanical Ventilator 07/11/16 19:35 80 07/11/16 19:01 65 15 35 07/11/16 17:29 65 15 35 07/11/16 16:37 98.2 07/11/16 16:00 97.7 75 22 116/61 100 Mechanical Ventilator 35 07/11/16 16:00 73 07/11/16 16:00 35 07/11/16 15:09 76 21 35 07/11/16 13:17 82 22 35 Intake and Output 07/11/16 07/12/16 19:00 07:00 Intake Total 9301.0 ml 5427.0 ml Output Total 33382 ml 4200 ml Balance -899.0 ml 1227.0 ml Free Water 200 ml IV Total 1051.0 ml 967.0 ml Tube Feeding 150 ml 360 ml Other 8100 ml 3900 ml Output Urine Total 97509 ml 4200 ml # Bowel Movements 2 2 Laboratory Tests 07/11/16 23:40: Vancomycin Level Trough 9.9 07/12/16 06:22: White Blood Count 6.7, Red Blood Count 3.04L, Hemoglobin 9.1L, Hematocrit 27.6L , Mean Corpuscular Volume 91, Mean Corpuscular Hemoglobin 30.0, Mean Corpuscular Hemoglobin Concent 33.1, Red Cell Distribution Width 16.6H, Platelet Count 86L, Mean Platelet Volume 6.3L, Neutrophils (%) (Auto) , Lymphocytes (%) (Auto) , Monocytes (%) (Auto) , Eosinophils (%) (Auto) , Basophils (%) (Auto) , Differential Total Cells Counted 100, Neutrophils % ( Manual) 82H, Lymphocytes % (Manual) 5L, Monocytes % (Manual) 8, Eosinophils % ( Manual) 4H, Basophils % (Manual) 1, Band Neutrophils 0, Platelet Estimate DecreasedL, Platelet Morphology Normal, Hypochromasia 2+, Prothrombin Time 14.5H , Prothromb Time International Ratio 1.4H, Activated Partial Thromboplast Time 42H, Sodium Level 131L, Potassium Level 3.4, Chloride Level 93L, Carbon Dioxide Level 22, Anion Gap 16H, Blood Urea Nitrogen 12, Creatinine 0.3L, Estimat Glomerular Filtration Rate > 60, Glucose Level 119H, Calcium Level 8.1L, Total Bilirubin 1.6H, Direct Bilirubin 0.8H, Aspartate Amino Transf (AST/SGOT) 42H, Alanine Aminotransferase (ALT/SGPT) 19, Alkaline Phosphatase 217H, Ammonia 42, Total Protein 5.6L, Albumin 2.1L, Globulin 3.5, Albumin/Globulin Ratio 0.6L Height (Feet): 5 Height (Inches): 6.00 Weight (Pounds): 156 Cardiovascular: normal rate Abdomen: non tender Pelvis: normal external exam Elia Montana MD July 12, 2016 12:05
--- NOTE | 2016-07-12 12:20 | Pulmonology Progress Note ---
Assessment/Plan Problems: (1) Bacteremia (2) Gross hematuria (3) Chronic respiratory failure (4) Anemia (5) Ventilator dependent (6) Liver cirrhosis (7) Decubitus ulcer (8) Ascites (9) Hyponatremia (10) Feeding by G-tube Respiratory: monitor respiratory rate, adjust FIO2, CXR Cardiac: continue to monitor HR/BP Renal: F/U I&O, keep IV fluid, check electrolytes Infectious Disease: check cultures, continue antibiotics Endocrine: monitor blood sugar, check TSH, continue sliding scale insulin Hematologic: monitor H/H, transfuse if hgb<8.5 Neurologic: PRN Ativan, keep patient comfortable Affect: PRN ativan Prophylaxis: Protonix, Heparin Notes Reviewed: flap maker, cardio, renal Discussed with: nurses, consultants, trimming caser Subjective ROS Limited/Unobtainable: No Constitutional: Reports: no symptoms Respiratory: Reports: no symptoms Cardiovascular: Reports: no symptoms Allergies: Coded Allergies: No Known Allergies (Unverified , 06/09/16) Objective Last 24 Hour Vital Signs Date Time Temp Pulse Resp B/P Pulse Ox O2 Delivery O2 Flow Rate FiO2 07/12/16 10:39 72 25 35 07/12/16 09:44 76 123/66 07/12/16 08:47 76 21 35 07/12/16 08:00 98.6 80 21 123/66 99 Mechanical Ventilator 35 07/12/16 08:00 35 07/12/16 07:24 64 16 35 07/12/16 05:18 77 22 35 07/12/16 04:28 97.5 77 22 108/57 100 Mechanical Ventilator 07/12/16 04:00 35 07/12/16 03:40 83 07/12/16 03:09 69 16 35 07/12/16 01:07 97.2 81 24 112/63 100 Mechanical Ventilator 07/12/16 01:01 72 22 35 07/12/16 00:00 35 07/11/16 23:35 82 07/11/16 23:11 76 23 35 07/11/16 21:18 94 123/63 07/11/16 21:12 94 25 35 07/11/16 20:00 35 07/11/16 20:00 98.3 82 18 123/63 100 Mechanical Ventilator 07/11/16 19:35 80 07/11/16 19:01 65 15 35 07/11/16 17:29 65 15 35 07/11/16 16:37 98.2 07/11/16 16:00 97.7 75 22 116/61 100 Mechanical Ventilator 35 07/11/16 16:00 73 07/11/16 16:00 35 07/11/16 15:09 76 21 35 07/11/16 13:17 82 22 35 Intake and Output 07/11/16 07/12/16 19:00 07:00 Intake Total 9301.0 ml 5427.0 ml Output Total 69417 ml 4200 ml Balance -899.0 ml 1227.0 ml Free Water 200 ml IV Total 1051.0 ml 967.0 ml Tube Feeding 150 ml 360 ml Other 8100 ml 3900 ml Output Urine Total 69400 ml 4200 ml # Bowel Movements 2 2 General Appearance: cachetic HEENT: normocephalic, atraumatic Respiratory/Chest: chest wall non-tender, lungs clear Cardiovascular: normal peripheral pulses, normal rate Abdomen: normal bowel sounds, soft, non tender Extremities: no cyanosis Skin: no rash Neurologic/Psychiatric: no motor/sensory deficits Lymphatic: no neck adenopathy Musculoskeletal: normal muscle bulk Microbiology Date/Time Source Procedure Growth Status 07/11/16 05:29 Blood Blood Culture - Preliminary NO GROWTH AFTER 24 HOURS Resulted 07/11/16 05:19 Blood Blood Culture - Preliminary NO GROWTH AFTER 24 HOURS Resulted 07/09/16 16:00 Blood Blood Culture - Preliminary Staphylococcus Aureus - Mrsa Morganella Morg Spp Morganii Resulted 07/09/16 16:00 Blood Blood Culture - Final Staphylococcus Aureus Complete 07/11/16 00:20 Sputum Gram Stain - Final Resulted 07/11/16 00:20 Sputum Sputum Culture Pending Resulted 07/10/16 05:30 Sputum Gram Stain - Final Resulted 07/10/16 05:30 Sputum Culture - Preliminary Gram Negative Bacillus 1 Gram Negative Bacillus 2 Resulted 07/09/16 21:00 Sacral Lower Gram Stain - Final Resulted 07/09/16 21:00 Wound Culture - Preliminary Morganella Morg Spp Morganii Staphylococcus Aureus - Mrsa Resulted Laboratory Tests 07/11/16 23:40: Vancomycin Level Trough 9.9 07/12/16 06:22: White Blood Count 6.7, Red Blood Count 3.04L, Hemoglobin 9.1L, Hematocrit 27.6L , Mean Corpuscular Volume 91, Mean Corpuscular Hemoglobin 30.0, Mean Corpuscular Hemoglobin Concent 33.1, Red Cell Distribution Width 16.6H, Platelet Count 86L, Mean Platelet Volume 6.3L, Neutrophils (%) (Auto) , Lymphocytes (%) (Auto) , Monocytes (%) (Auto) , Eosinophils (%) (Auto) , Basophils (%) (Auto) , Differential Total Cells Counted 100, Neutrophils % ( Manual) 82H, Lymphocytes % (Manual) 5L, Monocytes % (Manual) 8, Eosinophils % ( Manual) 4H, Basophils % (Manual) 1, Band Neutrophils 0, Platelet Estimate DecreasedL, Platelet Morphology Normal, Hypochromasia 2+, Prothrombin Time 14.5H , Prothromb Time International Ratio 1.4H, Activated Partial Thromboplast Time 42H, Sodium Level 131L, Potassium Level 3.4, Chloride Level 93L, Carbon Dioxide Level 22, Anion Gap 16H, Blood Urea Nitrogen 12, Creatinine 0.3L, Estimat Glomerular Filtration Rate > 60, Glucose Level 119H, Calcium Level 8.1L, Total Bilirubin 1.6H, Direct Bilirubin 0.8H, Aspartate Amino Transf (AST/SGOT) 42H, Alanine Aminotransferase (ALT/SGPT) 19, Alkaline Phosphatase 217H, Ammonia 42, Total Protein 5.6L, Albumin 2.1L, Globulin 3.5, Albumin/Globulin Ratio 0.6L Current Medications Medications (Trade) Dose Ordered Sig/Hair Route PRN Reason Start Time Stop Time Status Last Admin Dose Admin Acetaminophen (Tylenol) 650 mg Q4H PRN ORAL FEVER 07/09/16 18:00 08/08/16 17:59 Albuterol/ Ipratropium (DuoNeb 0.5-3(2.5)mg/3ml) 3 ml Q4H PRN HHN Shortness of Breath 07/09/16 18:00 07/14/16 17:59 Dextrose (Dextrose 50%) STAT PRN IV Hypoglycemia 07/09/16 18:00 08/08/16 17:59 Dextrose/Sodium Chloride (D5ns) 1,000 ml @ 50 mls/hr Q20H IV 07/11/16 13:00 08/10/16 12:59 07/12/16 09:02 Iron Sucrose 100 mg/Sodium Chloride 60 ml @ 240 mls/hr BEDTIME IVPB 07/11/16 21:00 07/15/16 21:14 07/11/16 21:19 Lactulose (Cephulac) 20 gm QID GT 07/09/16 20:00 08/08/16 19:59 07/12/16 09:00 Levetiracetam (Keppra) 1,500 mg Q12HR GT 07/09/16 22:00 08/08/16 21:59 07/12/16 09:45 Lorazepam (Ativan 2mg/ml 1ml) 2 mg Q2H PRN IV For Anxiety 07/09/16 18:00 07/16/16 17:59 Morphine Sulfate (Morphine Sulfate) 4 mg Q4H PRN IVP Severe Pain (Pain Scale 7-10) 07/09/16 18:00 07/16/16 17:59 07/11/16 16:07 Ondansetron HCl (Zofran) 4 mg Q6H PRN IVP Nausea & Vomiting 07/09/16 18:00 08/08/16 17:59 Piperacillin Sod/ Tazobactam Sod 3.375 gm/Sodium Chloride 110 ml @ 220 mls/hr Q6H IVPB 07/10/16 14:00 07/17/16 13:59 07/12/16 09:01 Polyethylene Glycol 17 gm 17 gm DAILYPRN PRN GT Constipation 07/10/16 13:38 08/08/16 17:59 Propranolol HCl (Inderal) 10 mg Q12HR GT 07/09/16 21:00 08/08/16 20:59 07/12/16 09:44 Rifaximin (Xifaxan) 550 mg EVERY 12 HOURS GT 07/10/16 21:00 07/17/16 20:59 07/12/16 09:44 Vancomycin HCl 1 ea 1 ea DAILY PRN MISC PER RX PROTOCOL 07/09/16 19:30 08/08/16 19:29 Vancomycin HCl/ Sodium Chloride (Vancomycin/ Sodium Chloride) 275 ml @ 183.3 mls/ hr Q12HR@0000,1200 IVPB 07/10/16 14:30 07/15/16 14:29 07/12/16 01:48 Zinc Sulfate (Zinc Sulfate) 220 mg DAILY GT 07/10/16 09:00 08/09/16 08:59 07/12/16 09:44 DANTE HSIEH July 12, 2016 12:20
--- NOTE | 2016-07-12 13:25 | General Progress Note ---
Assessment/Plan Status Narrative Assessment and plan: # Hematuria, julisa potentially cervantes catheter trauma - outpatient cystoscopy as per Dr. [place] # Anemia rule out GI bleed - GI service to evaluate, anemia w/u shows ACD # Thrombocytopenia potentially 2/2 sepsis, elevated lactate, likely 2/2 hepatosplenomegaly # Anemia 2/2 chronic disease - have reviewed iron panel # Hyponatremia potentially 2/2 dehydration # Ventilator dependent - respiratory distress, s/p trach # Cirrhosis # Hepatosplenomegaly # Malnutrition Subjective Constitutional: Reports: no symptoms HEENT: Reports: no symptoms Cardiovascular: Reports: no symptoms Respiratory: Reports: no symptoms Gastrointestinal/Abdominal: Reports: no symptoms Genitourinary: Reports: no symptoms Neurologic/Psychiatric: Reports: no symptoms Endocrine: Reports: no symptoms Hematologic/Lymphatic: Reports: anemia Allergies: Coded Allergies: No Known Allergies (Unverified , 06/09/16) Subjective no fevers, chills, or night sweats Objective Last 24 Hour Vital Signs Date Time Temp Pulse Resp B/P Pulse Ox O2 Delivery O2 Flow Rate FiO2 07/12/16 12:47 77 24 35 07/12/16 12:00 35 07/12/16 12:00 97.5 73 25 104/55 100 Mechanical Ventilator 35 07/12/16 12:00 72 07/12/16 10:39 72 25 35 07/12/16 09:44 76 123/66 07/12/16 08:47 76 21 35 07/12/16 08:00 62 07/12/16 08:00 98.6 80 21 123/66 99 Mechanical Ventilator 35 07/12/16 08:00 35 07/12/16 07:24 64 16 35 07/12/16 05:18 77 22 35 07/12/16 04:28 97.5 77 22 108/57 100 Mechanical Ventilator 07/12/16 04:00 35 07/12/16 03:40 83 07/12/16 03:09 69 16 35 07/12/16 01:07 97.2 81 24 112/63 100 Mechanical Ventilator 07/12/16 01:01 72 22 35 07/12/16 00:00 35 07/11/16 23:35 82 07/11/16 23:11 76 23 35 07/11/16 21:18 94 123/63 07/11/16 21:12 94 25 35 07/11/16 20:00 35 07/11/16 20:00 98.3 82 18 123/63 100 Mechanical Ventilator 07/11/16 19:35 80 07/11/16 19:01 65 15 35 07/11/16 17:29 65 15 35 07/11/16 16:37 98.2 07/11/16 16:00 97.7 75 22 116/61 100 Mechanical Ventilator 35 07/11/16 16:00 73 07/11/16 16:00 35 07/11/16 15:09 76 21 35 Intake and Output 07/11/16 07/12/16 19:00 07:00 Intake Total 9301.0 ml 5427.0 ml Output Total 15497 ml 4200 ml Balance -899.0 ml 1227.0 ml Free Water 200 ml IV Total 1051.0 ml 967.0 ml Tube Feeding 150 ml 360 ml Other 8100 ml 3900 ml Output Urine Total 95911 ml 4200 ml # Bowel Movements 2 2 Laboratory Tests 07/11/16 23:40: Vancomycin Level Trough 9.9 07/12/16 06:22: White Blood Count 6.7, Red Blood Count 3.04L, Hemoglobin 9.1L, Hematocrit 27.6L , Mean Corpuscular Volume 91, Mean Corpuscular Hemoglobin 30.0, Mean Corpuscular Hemoglobin Concent 33.1, Red Cell Distribution Width 16.6H, Platelet Count 86L, Mean Platelet Volume 6.3L, Neutrophils (%) (Auto) , Lymphocytes (%) (Auto) , Monocytes (%) (Auto) , Eosinophils (%) (Auto) , Basophils (%) (Auto) , Differential Total Cells Counted 100, Neutrophils % ( Manual) 82H, Lymphocytes % (Manual) 5L, Monocytes % (Manual) 8, Eosinophils % ( Manual) 4H, Basophils % (Manual) 1, Band Neutrophils 0, Platelet Estimate DecreasedL, Platelet Morphology Normal, Hypochromasia 2+, Prothrombin Time 14.5H , Prothromb Time International Ratio 1.4H, Activated Partial Thromboplast Time 42H, Sodium Level 131L, Potassium Level 3.4, Chloride Level 93L, Carbon Dioxide Level 22, Anion Gap 16H, Blood Urea Nitrogen 12, Creatinine 0.3L, Estimat Glomerular Filtration Rate > 60, Glucose Level 119H, Calcium Level 8.1L, Total Bilirubin 1.6H, Direct Bilirubin 0.8H, Aspartate Amino Transf (AST/SGOT) 42H, Alanine Aminotransferase (ALT/SGPT) 19, Alkaline Phosphatase 217H, Ammonia 42, Total Protein 5.6L, Albumin 2.1L, Globulin 3.5, Albumin/Globulin Ratio 0.6L Height (Feet): 5 Height (Inches): 6.00 Weight (Pounds): 156 General Appearance: alert EENT: TMs normal Neck: normal alignment Cardiovascular: regular rhythm Respiratory/Chest: chest wall non-tender Abdomen: soft Extremities: normal inspection Edema: 1+ Leg (L), 1+ Leg (R) Edema: mild edema Neurologic: alert Skin: warm/dry Art Mackenzie July 12, 2016 13:25
[2016-07-12 16:00] VITALS: BP 100/54
--- NOTE | 2016-07-12 18:10 | Infectious Diseases Prog Note ---
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 There is no evidence of hydronephrosis or asymmetric perirenal inflammatory change. The urinary bladder is decompressed with an indwelling Colon catheter. Air pockets within the urinary bladder likely reflect sequela of recent instrumentation/ catheterization. // Possible HCAP / VAP - SCx GNR x2 - CXR: Patchy infiltrates versus asymmetric pulmonary edema. Lung disease appears worse. 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, osteomyelitis - WCx MRSA, M.morganii // HCV Ab+ // Negative HIV // Afebrile without leukocytosis // Severe anemia - transfusing, GI following, EGD planned // Chronic liver disease / cirrhosis with elevated LFTs, hyponatremia, hypoalbuminemia, coagulopathy, TCP, chronic anemia // Chronic VDRF SP trach, PEG // h/o CVA // [place] resident // MDRO colonized // NKDA // Full Code PLAN: - continue empiric IV vancomycin, zosyn d# 3 - check ESR, CRP - check pelvic CT r/o abscess, osteomyelitis - f/u cultures - monitor CBC, temperatures - monitor BMP - monitor CXR - vent support, trach care, aspiration precaution - wound care Subjective Allergies: Coded Allergies: No Known Allergies (Unverified , 06/09/16) Subjective remains afebrile cultures noted Objective Vital Signs Last 24 Hour Vital Signs Date Time Temp Pulse Resp B/P Pulse Ox O2 Delivery O2 Flow Rate FiO2 07/12/16 16:52 69 23 35 07/12/16 16:00 35 07/12/16 16:00 82 07/12/16 14:35 68 29 35 07/12/16 12:47 77 24 35 07/12/16 12:00 35 07/12/16 12:00 97.5 73 25 104/55 100 Mechanical Ventilator 35 5/14/17 12:00 72 07/12/16 10:39 72 25 35 07/12/16 09:44 76 123/66 07/12/16 08:47 76 21 35 07/12/16 08:00 62 07/12/16 08:00 98.6 80 21 123/66 99 Mechanical Ventilator 35 07/12/16 08:00 35 07/12/16 07:24 64 16 35 07/12/16 05:18 77 22 35 07/12/16 04:28 97.5 77 22 108/57 100 Mechanical Ventilator 07/12/16 04:00 35 07/12/16 03:40 83 07/12/16 03:09 69 16 35 07/12/16 01:07 97.2 81 24 112/63 100 Mechanical Ventilator 07/12/16 01:01 72 22 35 07/12/16 00:00 35 07/11/16 23:35 82 07/11/16 23:11 76 23 35 07/11/16 21:18 94 123/63 07/11/16 21:12 94 25 35 07/11/16 20:00 35 07/11/16 20:00 98.3 82 18 123/63 100 Mechanical Ventilator 07/11/16 19:35 80 07/11/16 19:01 65 15 35 Height (Feet): 5 Height (Inches): 6.00 Weight (Pounds): 156 General Appearance: no acute distress HEENT: status post trach Respiratory/Chest: decreased breath sounds Cardiovascular: normal rate, regular rhythm Abdomen: normal bowel sounds, soft, non tender, non distended Microbiology Date/Time Source Procedure Growth Status 07/11/16 05:29 Blood Blood Culture - Preliminary NO GROWTH AFTER 24 HOURS Resulted 07/11/16 05:19 Blood Blood Culture - Preliminary NO GROWTH AFTER 24 HOURS Resulted 07/11/16 00:20 Sputum Gram Stain - Final Resulted 07/11/16 00:20 Sputum Sputum Culture Pending Resulted 07/10/16 05:30 Sputum Gram Stain - Final Resulted 07/10/16 05:30 Sputum Culture - Preliminary Gram Negative Bacillus 1 Gram Negative Bacillus 2 Resulted 07/09/16 21:00 Sacral Lower Gram Stain - Final Resulted 07/09/16 21:00 Wound Culture - Preliminary Morganella Morg Spp Morganii Staphylococcus Aureus - Mrsa Resulted Laboratory Tests Test 07/11/16 23:40 07/12/16 06:22 Vancomycin Level Trough 9.9 ug/mL (5.0-12.0) White Blood Count 6.7 K/UL (4.8-10.8) Red Blood Count 3.04 M/UL (4.70-6.10) L Hemoglobin 9.1 G/DL (14.2-18.0) L Hematocrit 27.6 % (42.0-52.0) L Mean Corpuscular Volume 91 FL (80-99) Mean Corpuscular Hemoglobin 30.0 PG (27.0-31.0) Mean Corpuscular Hemoglobin Concent 33.1 G/DL (32.0-36.0) Red Cell Distribution Width 16.6 % (11.6-14.8) H Platelet Count 86 K/UL (150-450) L Mean Platelet Volume 6.3 FL (6.5-10.1) L Neutrophils (%) (Auto) % (45.0-75.0) Lymphocytes (%) (Auto) % (20.0-45.0) Monocytes (%) (Auto) % (1.0-10.0) Eosinophils (%) (Auto) % (0.0-3.0) Basophils (%) (Auto) % (0.0-2.0) Differential Total Cells Counted 100 Neutrophils % (Manual) 82 % (45-75) H Lymphocytes % (Manual) 5 % (20-45) L Monocytes % (Manual) 8 % (1-10) Eosinophils % (Manual) 4 % (0-3) H Basophils % (Manual) 1 % (0-2) Band Neutrophils 0 % (0-8) Platelet Estimate Decreased L Platelet Morphology Normal Hypochromasia 2+ Prothrombin Time 14.5 SEC (9.30-11.50) H Prothromb Time International Ratio 1.4 (0.9-1.1) H Activated Partial Thromboplast Time 42 SEC (23-33) H Sodium Level 131 mEQ/L (135-145) L Potassium Level 3.4 mEQ/L (3.4-4.9) Chloride Level 93 mEQ/L (98-107) L Carbon Dioxide Level 22 mEQ/L (20-30) Anion Gap 16 (5-15) H Blood Urea Nitrogen 12 mg/dL (7-23) Creatinine 0.3 mg/dL (0.7-1.2) L Estimat Glomerular Filtration Rate > 60 mL/min (>60) Glucose Level 119 mg/dL (74-106) H Calcium Level 8.1 mg/dL (8.6-10.2) L Total Bilirubin 1.6 mg/dL (0.0-1.2) H Direct Bilirubin 0.8 mg/dL (0.1-0.3) H Aspartate Amino Transf (AST/SGOT) 42 U/L (5-40) H Alanine Aminotransferase (ALT/SGPT) 19 U/L (3-41) Alkaline Phosphatase 217 U/L (40-129) H Ammonia 42 umol/L (16-60) Total Protein 5.6 g/dL (6.6-8.7) L Albumin 2.1 g/dL (3.5-5.2) L Globulin 3.5 g/dL Albumin/Globulin Ratio 0.6 (1.0-2.7) L Current Medications Medications (Trade) Dose Ordered Sig/Hair Route PRN Reason Start Time Stop Time Status Last Admin Dose Admin Acetaminophen (Tylenol) 650 mg Q4H PRN ORAL FEVER 07/09/16 18:00 08/08/16 17:59 Albuterol/ Ipratropium (DuoNeb 0.5-3(2.5)mg/3ml) 3 ml Q4H PRN HHN Shortness of Breath 07/09/16 18:00 07/14/16 17:59 Dextrose (Dextrose 50%) STAT PRN IV Hypoglycemia 07/09/16 18:00 08/08/16 17:59 Dextrose/Sodium Chloride (D5ns) 1,000 ml @ 50 mls/hr Q20H IV 07/11/16 13:00 08/10/16 12:59 07/12/16 09:02 Iron Sucrose 100 mg/Sodium Chloride 60 ml @ 240 mls/hr BEDTIME IVPB 07/11/16 21:00 07/15/16 21:14 07/11/16 21:19 Lactulose (Cephulac) 20 gm QID GT 07/09/16 20:00 08/08/16 19:59 07/12/16 17:52 Levetiracetam (Keppra) 1,500 mg Q12HR GT 07/09/16 22:00 08/08/16 21:59 07/12/16 09:45 Lorazepam (Ativan 2mg/ml 1ml) 2 mg Q2H PRN IV For Anxiety 07/09/16 18:00 07/16/16 17:59 Morphine Sulfate (Morphine Sulfate) 4 mg Q4H PRN IVP Severe Pain (Pain Scale 7-10) 07/09/16 18:00 07/16/16 17:59 07/11/16 16:07 Ondansetron HCl (Zofran) 4 mg Q6H PRN IVP Nausea & Vomiting 07/09/16 18:00 08/08/16 17:59 Piperacillin Sod/ Tazobactam Sod 3.375 gm/Sodium Chloride 110 ml @ 220 mls/hr Q6H IVPB 07/10/16 14:00 07/17/16 13:59 07/12/16 15:22 Polyethylene Glycol 17 gm 17 gm DAILYPRN PRN GT Constipation 07/10/16 13:38 08/08/16 17:59 Propranolol HCl (Inderal) 10 mg Q12HR GT 07/09/16 21:00 08/08/16 20:59 07/12/16 09:44 Rifaximin (Xifaxan) 550 mg EVERY 12 HOURS GT 07/10/16 21:00 07/17/16 20:59 07/12/16 09:44 Vancomycin HCl 1 ea 1 ea DAILY PRN MISC PER RX PROTOCOL 07/09/16 19:30 08/08/16 19:29 Vancomycin HCl/ Sodium Chloride (Vancomycin/ Sodium Chloride) 275 ml @ 183.3 mls/ hr Q12HR@0000,1200 IVPB 07/10/16 14:30 07/15/16 14:29 07/12/16 13:30 Zinc Sulfate (Zinc Sulfate) 220 mg DAILY GT 07/10/16 09:00 08/09/16 08:59 07/12/16 09:44 JO CABRERA July 12, 2016 18:10
--- NOTE | 2016-07-12 19:42 | Cardiology Report ---
APPROVED REPORT EXAM: Two-dimensional and M-mode echocardiogram with Doppler and color Doppler. INDICATION Endocarditis Technically difficult study due to poor acoustic windows. Patients breathing. M-mode measurements not obtainable due to cardiac structure. Normal left ventricular chamber size, systolic function and wall motion. Left ventricular ejection fraction estimated to be 55-60 %. No evidence of left ventricular hypertrophy. No evidence of pericardial fat or effusion. Right cardiac chamber sizes are within normal limits. Moderate left atrial enlargement by 2D. Focal aortic valve sclerosis with adequate cusp excursion Thickened mitral valve leaflets with normal excursion. Mild mitral annulus and aortic root calcification. Pulmonic valve not well visualized. Normal tricuspid valve structure. IVC not obtainable due to GI tube. No evidence of echo density seen (vegetation), consider PASTORA if clinically indicated. A color flow and spectral Doppler study was performed and revealed: Moderate aortic regurgitation. No mitral regurgitation. Mitral inflow velocities indicates possible pseudo normalization pattern implying significant left ventricular diastolic dysfunction. No tricuspid regurgitation. Tricuspid systolic velocities suggests peak right ventricular systolic pressure of 25 mmHg
[2016-07-12 20:00] VITALS: BP 102/56
--- NOTE | 2016-07-12 20:15 | Cardiology Report ---
APPROVED REPORT EKG Measurement Heart [id number] Sinus rhythm with premature ventricular complexes or fusion complexes Right bundle branch block Abnormal ECG
[2016-07-12] MEDS: Iron Sucrose 100 MG in NS 55 ML IVPB SCH (20:51)
--- NOTE | 2016-07-12 23:11 | Nephrology Progress Note ---
Assessment/Plan Assessment 1. isovolemic hyponatremia improving the patient seems to be hypovolemic at this time. 2. Hypocalcemia. 3. Gross hematuria. Plan plan to continue ns .9 lasix iv mix all ivpb with .9 free water restriction Subjective ROS Limited/Unobtainable: Yes Subjective No acute over night awake and alert Objective Objective Last 24 Hour Vital Signs Date Time Temp Pulse Resp B/P Pulse Ox O2 Delivery O2 Flow Rate FiO2 07/12/16 21:12 68 21 35 07/12/16 20:51 66 102/56 07/12/16 20:00 99.4 66 18 102/56 97 Room Air 07/12/16 20:00 35 07/12/16 19:40 64 07/12/16 18:50 65 20 35 07/12/16 16:52 69 23 35 07/12/16 16:00 35 07/12/16 16:00 82 07/12/16 16:00 97.7 70 19 100/54 98 Mechanical Ventilator 35 07/12/16 14:35 68 29 35 07/12/16 12:47 77 24 35 07/12/16 12:00 35 07/12/16 12:00 97.5 73 25 104/55 100 Mechanical Ventilator 35 07/12/16 12:00 72 07/12/16 10:39 72 25 35 07/12/16 09:44 76 123/66 07/12/16 08:47 76 21 35 07/12/16 08:00 62 07/12/16 08:00 98.6 80 21 123/66 99 Mechanical Ventilator 35 07/12/16 08:00 35 07/12/16 07:24 64 16 35 07/12/16 05:18 77 22 35 07/12/16 04:28 97.5 77 22 108/57 100 Mechanical Ventilator 07/12/16 04:00 35 07/12/16 03:40 83 07/12/16 03:09 69 16 35 07/12/16 01:07 97.2 81 24 112/63 100 Mechanical Ventilator 07/12/16 01:01 72 22 35 07/12/16 00:00 35 07/11/16 23:35 82 07/11/16 23:11 76 23 35 Intake and Output 07/11/16 07/12/16 19:00 07:00 Intake Total 9301.0 ml 5427.0 ml Output Total 94621 ml 4200 ml Balance -899.0 ml 1227.0 ml Free Water 200 ml IV Total 1051.0 ml 967.0 ml Tube Feeding 150 ml 360 ml Other 8100 ml 3900 ml Output Urine Total 60057 ml 4200 ml # Bowel Movements 2 2 Laboratory Tests 07/11/16 23:40: Vancomycin Level Trough 9.9 07/12/16 06:22: White Blood Count 6.7, Red Blood Count 3.04L, Hemoglobin 9.1L, Hematocrit 27.6L , Mean Corpuscular Volume 91, Mean Corpuscular Hemoglobin 30.0, Mean Corpuscular Hemoglobin Concent 33.1, Red Cell Distribution Width 16.6H, Platelet Count 86L, Mean Platelet Volume 6.3L, Neutrophils (%) (Auto) , Lymphocytes (%) (Auto) , Monocytes (%) (Auto) , Eosinophils (%) (Auto) , Basophils (%) (Auto) , Differential Total Cells Counted 100, Neutrophils % ( Manual) 82H, Lymphocytes % (Manual) 5L, Monocytes % (Manual) 8, Eosinophils % ( Manual) 4H, Basophils % (Manual) 1, Band Neutrophils 0, Platelet Estimate DecreasedL, Platelet Morphology Normal, Hypochromasia 2+, Prothrombin Time 14.5H , Prothromb Time International Ratio 1.4H, Activated Partial Thromboplast Time 42H, Sodium Level 131L, Potassium Level 3.4, Chloride Level 93L, Carbon Dioxide Level 22, Anion Gap 16H, Blood Urea Nitrogen 12, Creatinine 0.3L, Estimat Glomerular Filtration Rate > 60, Glucose Level 119H, Calcium Level 8.1L, Total Bilirubin 1.6H, Direct Bilirubin 0.8H, Aspartate Amino Transf (AST/SGOT) 42H, Alanine Aminotransferase (ALT/SGPT) 19, Alkaline Phosphatase 217H, Ammonia 42, Total Protein 5.6L, Albumin 2.1L, Globulin 3.5, Albumin/Globulin Ratio 0.6L Height (Feet): 5 Height (Inches): 6.00 Weight (Pounds): 156 Objective HEENT: Head and neck, no JVP, no LAD, and no thyromegaly. Trach is in place. Extraocular movement is intact. Pupils are reactive to light and accommodation. CHEST: Lungs are clear to auscultation. CARDIAC: Regular rate and rhythm. S1 and S2. No murmur. No rub. ABDOMEN: Soft, nontender, and nondistended. EXTREMITIES: Trace edema. No clubbing. No cyanosis. ALDEN GUERRERO July 12, 2016 23:11
[2016-07-13] VITALS: BP 122/72
[2016-07-13] MEDS: Vancomycin 1 GM in NS 275 ML IVPB SCH ×2 (00:39→13:47)
[2016-07-13] MEDS: Piperacillin/Tazobactam 3.375 GM in NS 110 ML IVPB SCH ×4 (02:30→23:14)
[2016-07-13 04:00] VITALS: BP 103/56
[2016-07-13] MEDS: D5NS 1,000 ML IV SCH (04:29)
[2016-07-13 05:51] LABS: MEAN CORPUSCULAR HEMOGLOBIN 31.2 PG (27.0-31.0); MEAN CORPUSCULAR HGB CONC 34.4 G/DL (32.0-36.0); MEAN CORPUSCULAR VOLUME 91 FL (80-99); MEAN PLATELET VOLUME 5.9 FL (6.5-10.1); PLATELET COUNT 76 K/UL (150-450); RED BLOOD COUNT 2.71 M/UL (4.70-6.10); RED CELL DISTRIBUTION WIDTH 16.7 % (11.6-14.8); WHITE BLOOD COUNT 4.8 K/UL (4.8-10.8)
[2016-07-13 06:09] LABS: ALANINE AMINOTRANSFERASE 25 U/L (3-41); ALBUMIN/GLOBULIN RATIO 0.6 (1.0-2.7); ANION GAP 16 (5-15); ASPARTATE AMINO TRANSFERASE 53 U/L (5-40); CALCIUM 7.9 mg/dL (8.6-10.2); CARBON DIOXIDE 22 mEQ/L (20-30); CHLORIDE 95 mEQ/L (98-107); CREATININE < 0.2 mg/dL (0.7-1.2); GLOMERULAR FILTRATION RATE > 60 mL/min (>60); HEMOLYSIS 1; MAGNESIUM 1.5 mg/dL (1.7-2.5); PHOSPHORUS 3.2 mg/dL (2.5-4.8); POTASSIUM 3.3 mEQ/L (3.4-4.9); SODIUM 133 mEQ/L (135-145); TOTAL PROTEIN 5.6 g/dL (6.6-8.7)
[2016-07-13 06:25] LABS: INR 1.5 (0.9-1.1); PROTHROMBIN TIME 15.2 SEC (9.30-11.50)
[2016-07-13 07:42] LABS: BILIRUBIN,DIRECT 0.6 mg/dL (0.1-0.3)
[2016-07-13 08:00] VITALS: BP 104/52
[2016-07-13] MEDS: Rifaximin 550mg tab GT SCH ×2 (08:17→21:53)
[2016-07-13] MEDS: Zinc Sulfate 220mg cap GT SCH (08:17)
[2016-07-13] MEDS: Lactulose 20gm/30ml UDC GT SCH ×4 (08:18→21:52)
[2016-07-13] MEDS: levETIRAcetam 500mg/5ml Liquid GT SCH ×2 (08:18→21:53)
[2016-07-13] MEDS: Propranolol 10mg tab GT SCH ×2 (09:00→21:52)
[2016-07-13] MEDS ORDERED: KCl 10% 40mEq/30ml liquid NG ONE (09:30)
[2016-07-13 09:36] LABS: ANISOCYTOSIS 1+; BAND NEUTROPHILS % (MANUAL) 0 % (0-8); BASOPHILS % (MANUAL) 0 % (0-2); EOSINOPHILS % (MANUAL) 8 % (0-3); HYPOCHROMASIA 1+; LYMPHOCYTES % (MANUAL) 4 % (20-45); NEUTROPHILS % (MANUAL) 84 % (45-75); PLATELET ESTIMATE DECREASED; PLATELET MORPHOLOGY NORMAL; TOTAL CELLS COUNTED 100
--- NOTE | 2016-07-13 09:41 | Infectious Diseases Prog Note ---
Subjective Constitutional: Denies: anorexia, chills, drenching sweats, fatigue, fever, no symptoms, other Allergies: Coded Allergies: No Known Allergies (Unverified , 06/09/16) Objective Vital Signs Last 24 Hour Vital Signs Date Time Temp Pulse Resp B/P Pulse Ox O2 Delivery O2 Flow Rate FiO2 07/13/16 09:00 69 104/52 07/13/16 08:00 99.2 69 19 104/52 99 Mechanical Ventilator 35 07/13/16 05:25 70 21 35 07/13/16 04:00 99.1 69 20 103/56 99 Room Air 07/13/16 04:00 35 07/13/16 03:28 69 20 35 07/13/16 03:11 68 07/13/16 01:28 73 20 35 07/13/16 00:00 98.0 91 20 122/72 99 Room Air 07/13/16 00:00 35 07/12/16 23:29 67 20 35 07/12/16 23:15 72 07/12/16 21:12 68 21 35 07/12/16 20:51 66 102/56 07/12/16 20:00 99.4 66 18 102/56 97 Room Air 07/12/16 20:00 35 07/12/16 19:40 64 07/12/16 18:50 65 20 35 07/12/16 16:52 69 23 35 07/12/16 16:00 35 07/12/16 16:00 82 07/12/16 16:00 97.7 70 19 100/54 98 Mechanical Ventilator 35 07/12/16 14:35 68 29 35 07/12/16 12:47 77 24 35 07/12/16 12:00 35 07/12/16 12:00 97.5 73 25 104/55 100 Mechanical Ventilator 35 07/12/16 12:00 72 07/12/16 10:39 72 25 35 07/12/16 09:44 76 123/66 Height (Feet): 5 Height (Inches): 6.00 Weight (Pounds): 156 HEENT: mucous membranes moist Respiratory/Chest: no accessory muscle use Cardiovascular: regularly irregular Abdomen: no organomegaly Microbiology Date/Time Source Procedure Growth Status 07/11/16 05:29 Blood Blood Culture - Preliminary NO GROWTH AFTER 24 HOURS Resulted 07/11/16 05:19 Blood Blood Culture - Preliminary Resulted 07/11/16 00:20 Sputum Gram Stain - Final Resulted 07/11/16 00:20 Sputum Culture - Preliminary Gram Negative Bacillus 1 Gram Negative Bacillus 2 Resulted Laboratory Tests Test 07/13/16 04:30 White Blood Count 4.8 K/UL (4.8-10.8) Red Blood Count 2.71 M/UL (4.70-6.10) L Hemoglobin 8.4 G/DL (14.2-18.0) L Hematocrit 24.5 % (42.0-52.0) L Mean Corpuscular Volume 91 FL (80-99) Mean Corpuscular Hemoglobin 31.2 PG (27.0-31.0) H Mean Corpuscular Hemoglobin Concent 34.4 G/DL (32.0-36.0) Red Cell Distribution Width 16.7 % (11.6-14.8) H Platelet Count 76 K/UL (150-450) L Mean Platelet Volume 5.9 FL (6.5-10.1) L Neutrophils (%) (Auto) % (45.0-75.0) Lymphocytes (%) (Auto) % (20.0-45.0) Monocytes (%) (Auto) % (1.0-10.0) Eosinophils (%) (Auto) % (0.0-3.0) Basophils (%) (Auto) % (0.0-2.0) Differential Total Cells Counted 100 Neutrophils % (Manual) 84 % (45-75) H Lymphocytes % (Manual) 4 % (20-45) L Monocytes % (Manual) 4 % (1-10) Eosinophils % (Manual) 8 % (0-3) H Basophils % (Manual) 0 % (0-2) Band Neutrophils 0 % (0-8) Platelet Estimate Decreased L Platelet Morphology Normal Hypochromasia 1+ Anisocytosis 1+ Erythrocyte Sedimentation Rate 86 MM/HR (0-20) H Prothrombin Time 15.2 SEC (9.30-11.50) H Prothromb Time International Ratio 1.5 (0.9-1.1) H Activated Partial Thromboplast Time 42 SEC (23-33) H Sodium Level 133 mEQ/L (135-145) L Potassium Level 3.3 mEQ/L (3.4-4.9) L Chloride Level 95 mEQ/L (98-107) L Carbon Dioxide Level 22 mEQ/L (20-30) Anion Gap 16 (5-15) H Blood Urea Nitrogen 9 mg/dL (7-23) Creatinine < 0.2 mg/dL (0.7-1.2) L Estimat Glomerular Filtration Rate > 60 mL/min (>60) Glucose Level 99 mg/dL (74-106) Calcium Level 7.9 mg/dL (8.6-10.2) L Phosphorus Level 3.2 mg/dL (2.5-4.8) Magnesium Level 1.5 mg/dL (1.7-2.5) L Total Bilirubin 1.6 mg/dL (0.0-1.2) H Direct Bilirubin 0.6 mg/dL (0.1-0.3) H Aspartate Amino Transf (AST/SGOT) 53 U/L (5-40) H Alanine Aminotransferase (ALT/SGPT) 25 U/L (3-41) Alkaline Phosphatase 242 U/L (40-129) H C-Reactive Protein, Quantitative 6.0 mg/dL (< 0.5) H Total Protein 5.6 g/dL (6.6-8.7) L Albumin 2.1 g/dL (3.5-5.2) L Globulin 3.5 g/dL Albumin/Globulin Ratio 0.6 (1.0-2.7) L Current Medications Medications (Trade) Dose Ordered Sig/Hair Route PRN Reason Start Time Stop Time Status Last Admin Dose Admin Acetaminophen (Tylenol) 650 mg Q4H PRN ORAL FEVER 07/09/16 18:00 08/08/16 17:59 Albuterol/ Ipratropium (DuoNeb 0.5-3(2.5)mg/3ml) 3 ml Q4H PRN HHN Shortness of Breath 07/09/16 18:00 07/14/16 17:59 Dextrose (Dextrose 50%) STAT PRN IV Hypoglycemia 07/09/16 18:00 08/08/16 17:59 Dextrose/Sodium Chloride 1,000 ml @ 50 mls/hr Q20H IV 07/11/16 13:00 08/10/16 12:59 07/13/16 04:29 Iron Sucrose 100 mg/Sodium Chloride 60 ml @ 240 mls/hr BEDTIME IVPB 07/11/16 21:00 07/15/16 21:14 07/12/16 20:51 Lactulose (Cephulac) 20 gm QID GT 07/09/16 20:00 08/08/16 19:59 07/13/16 08:18 Levetiracetam (Keppra) 1,500 mg Q12HR GT 07/09/16 22:00 08/08/16 21:59 07/13/16 08:18 Lorazepam (Ativan 2mg/ml 1ml) 2 mg Q2H PRN IV For Anxiety 07/09/16 18:00 07/16/16 17:59 Magnesium Sulfate (Magnesium Sulfate 1gm/100ml) 100 ml @ 100 mls/hr Q1H IVPB 07/13/16 09:30 07/13/16 11:29 07/13/16 09:38 Morphine Sulfate (Morphine Sulfate) 4 mg Q4H PRN IVP Severe Pain (Pain Scale 7-10) 07/09/16 18:00 07/16/16 17:59 07/11/16 16:07 Ondansetron HCl (Zofran) 4 mg Q6H PRN IVP Nausea & Vomiting 07/09/16 18:00 08/08/16 17:59 Piperacillin Sod/ Tazobactam Sod 3.375 gm/Sodium Chloride 110 ml @ 220 mls/hr Q6H IVPB 07/13/16 11:00 07/20/16 10:59 Polyethylene Glycol 17 gm 17 gm DAILYPRN PRN GT Constipation 07/10/16 13:38 08/08/16 17:59 Propranolol HCl (Inderal) 10 mg Q12HR GT 07/09/16 21:00 08/08/16 20:59 07/12/16 09:44 Rifaximin (Xifaxan) 550 mg EVERY 12 HOURS GT 07/10/16 21:00 07/17/16 20:59 07/13/16 08:17 Vancomycin HCl 1 ea 1 ea DAILY PRN MISC PER RX PROTOCOL 07/09/16 19:30 08/08/16 19:29 Vancomycin HCl/ Sodium Chloride (Vancomycin/ Sodium Chloride) 275 ml @ 183.3 mls/ hr Q12HR@0000,1200 IVPB 07/10/16 14:30 07/15/16 14:29 07/13/16 00:39 Zinc Sulfate (Zinc Sulfate) 220 mg DAILY GT 07/10/16 09:00 08/09/16 08:59 07/13/16 08:17 SHARRI RAMÍREZ M.D. July 13, 2016 09:41
--- NOTE | 2016-07-13 09:53 | Infectious Diseases Prog Note ---
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 There is no evidence of hydronephrosis or asymmetric perirenal inflammatory change. The urinary bladder is decompressed with an indwelling Colon catheter. Air pockets within the urinary bladder likely reflect sequela of recent instrumentation/ catheterization. // Possible HCAP / VAP - SCx PSA and Pr. Mirabilis - CXR: Patchy infiltrates versus asymmetric pulmonary edema. Lung disease appears worse. 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, osteomyelitis - WCx MRSA, M.morganii // HCV Ab+ // Negative HIV // Elev Alk Ph: // Afebrile without leukocytosis // Elevated ESR, CRP // Severe anemia - transfusing, GI following, EGD planned // Chronic liver disease / cirrhosis with elevated LFTs, hyponatremia, hypoalbuminemia, coagulopathy, TCP, chronic anemia // Chronic VDRF SP trach, PEG // h/o CVA // [facility] resident // MDRO colonized // NKDA // Full Code PLAN: - continue empiric IV vancomycin, zosyn d# - check pelvic CT r/o abscess, osteomyelitis - US of Abd - f/u cultures - monitor CBC, temperatures - monitor BMP - monitor CXR - vent support, trach care, aspiration precaution - wound care Subjective Allergies: Coded Allergies: No Known Allergies (Unverified , 06/09/16) Subjective afebrile Objective Vital Signs Last 24 Hour Vital Signs Date Time Temp Pulse Resp B/P Pulse Ox O2 Delivery O2 Flow Rate FiO2 07/13/16 09:00 69 104/52 07/13/16 08:00 99.2 69 19 104/52 99 Mechanical Ventilator 35 07/13/16 05:25 70 21 35 07/13/16 04:00 99.1 69 20 103/56 99 Room Air 07/13/16 04:00 35 07/13/16 03:28 69 20 35 07/13/16 03:11 68 07/13/16 01:28 73 20 35 07/13/16 00:00 98.0 91 20 122/72 99 Room Air 07/13/16 00:00 35 07/12/16 23:29 67 20 35 07/12/16 23:15 72 07/12/16 21:12 68 21 35 07/12/16 20:51 66 102/56 07/12/16 20:00 99.4 66 18 102/56 97 Room Air 07/12/16 20:00 35 07/12/16 19:40 64 07/12/16 18:50 65 20 35 07/12/16 16:52 69 23 35 07/12/16 16:00 35 07/12/16 16:00 82 07/12/16 16:00 97.7 70 19 100/54 98 Mechanical Ventilator 35 07/12/16 14:35 68 29 35 07/12/16 12:47 77 24 35 07/12/16 12:00 35 07/12/16 12:00 97.5 73 25 104/55 100 Mechanical Ventilator 35 07/12/16 12:00 72 07/12/16 10:39 72 25 35 07/12/16 09:44 76 123/66 Height (Feet): 5 Height (Inches): 6.00 Weight (Pounds): 156 HEENT: atraumatic Respiratory/Chest: normal breath sounds Cardiovascular: regular rhythm Abdomen: no organomegaly Microbiology Date/Time Source Procedure Growth Status 07/11/16 05:29 Blood Blood Culture - Preliminary NO GROWTH AFTER 24 HOURS Resulted 07/11/16 05:19 Blood Blood Culture - Preliminary Resulted 07/11/16 00:20 Sputum Gram Stain - Final Resulted 07/11/16 00:20 Sputum Culture - Preliminary Gram Negative Bacillus 1 Gram Negative Bacillus 2 Resulted Laboratory Tests Test 07/13/16 04:30 White Blood Count 4.8 K/UL (4.8-10.8) Red Blood Count 2.71 M/UL (4.70-6.10) L Hemoglobin 8.4 G/DL (14.2-18.0) L Hematocrit 24.5 % (42.0-52.0) L Mean Corpuscular Volume 91 FL (80-99) Mean Corpuscular Hemoglobin 31.2 PG (27.0-31.0) H Mean Corpuscular Hemoglobin Concent 34.4 G/DL (32.0-36.0) Red Cell Distribution Width 16.7 % (11.6-14.8) H Platelet Count 76 K/UL (150-450) L Mean Platelet Volume 5.9 FL (6.5-10.1) L Neutrophils (%) (Auto) % (45.0-75.0) Lymphocytes (%) (Auto) % (20.0-45.0) Monocytes (%) (Auto) % (1.0-10.0) Eosinophils (%) (Auto) % (0.0-3.0) Basophils (%) (Auto) % (0.0-2.0) Differential Total Cells Counted 100 Neutrophils % (Manual) 84 % (45-75) H Lymphocytes % (Manual) 4 % (20-45) L Monocytes % (Manual) 4 % (1-10) Eosinophils % (Manual) 8 % (0-3) H Basophils % (Manual) 0 % (0-2) Band Neutrophils 0 % (0-8) Platelet Estimate Decreased L Platelet Morphology Normal Hypochromasia 1+ Anisocytosis 1+ Erythrocyte Sedimentation Rate 86 MM/HR (0-20) H Prothrombin Time 15.2 SEC (9.30-11.50) H Prothromb Time International Ratio 1.5 (0.9-1.1) H Activated Partial Thromboplast Time 42 SEC (23-33) H Sodium Level 133 mEQ/L (135-145) L Potassium Level 3.3 mEQ/L (3.4-4.9) L Chloride Level 95 mEQ/L (98-107) L Carbon Dioxide Level 22 mEQ/L (20-30) Anion Gap 16 (5-15) H Blood Urea Nitrogen 9 mg/dL (7-23) Creatinine < 0.2 mg/dL (0.7-1.2) L Estimat Glomerular Filtration Rate > 60 mL/min (>60) Glucose Level 99 mg/dL (74-106) Calcium Level 7.9 mg/dL (8.6-10.2) L Phosphorus Level 3.2 mg/dL (2.5-4.8) Magnesium Level 1.5 mg/dL (1.7-2.5) L Total Bilirubin 1.6 mg/dL (0.0-1.2) H Direct Bilirubin 0.6 mg/dL (0.1-0.3) H Aspartate Amino Transf (AST/SGOT) 53 U/L (5-40) H Alanine Aminotransferase (ALT/SGPT) 25 U/L (3-41) Alkaline Phosphatase 242 U/L (40-129) H C-Reactive Protein, Quantitative 6.0 mg/dL (< 0.5) H Total Protein 5.6 g/dL (6.6-8.7) L Albumin 2.1 g/dL (3.5-5.2) L Globulin 3.5 g/dL Albumin/Globulin Ratio 0.6 (1.0-2.7) L Current Medications Medications (Trade) Dose Ordered Sig/Hair Route PRN Reason Start Time Stop Time Status Last Admin Dose Admin Acetaminophen (Tylenol) 650 mg Q4H PRN ORAL FEVER 07/09/16 18:00 08/08/16 17:59 Albuterol/ Ipratropium (DuoNeb 0.5-3(2.5)mg/3ml) 3 ml Q4H PRN HHN Shortness of Breath 07/09/16 18:00 07/14/16 17:59 Dextrose (Dextrose 50%) STAT PRN IV Hypoglycemia 07/09/16 18:00 08/08/16 17:59 Dextrose/Sodium Chloride 1,000 ml @ 50 mls/hr Q20H IV 07/11/16 13:00 08/10/16 12:59 07/13/16 04:29 Iron Sucrose 100 mg/Sodium Chloride 60 ml @ 240 mls/hr BEDTIME IVPB 07/11/16 21:00 07/15/16 21:14 07/12/16 20:51 Lactulose (Cephulac) 20 gm QID GT 07/09/16 20:00 08/08/16 19:59 07/13/16 08:18 Levetiracetam (Keppra) 1,500 mg Q12HR GT 07/09/16 22:00 08/08/16 21:59 07/13/16 08:18 Lorazepam (Ativan 2mg/ml 1ml) 2 mg Q2H PRN IV For Anxiety 07/09/16 18:00 07/16/16 17:59 Magnesium Sulfate (Magnesium Sulfate 1gm/100ml) 100 ml @ 100 mls/hr Q1H IVPB 07/13/16 09:30 07/13/16 11:29 07/13/16 09:38 Morphine Sulfate (Morphine Sulfate) 4 mg Q4H PRN IVP Severe Pain (Pain Scale 7-10) 07/09/16 18:00 07/16/16 17:59 07/11/16 16:07 Ondansetron HCl (Zofran) 4 mg Q6H PRN IVP Nausea & Vomiting 07/09/16 18:00 08/08/16 17:59 Piperacillin Sod/ Tazobactam Sod 3.375 gm/Sodium Chloride 110 ml @ 220 mls/hr Q6H IVPB 07/13/16 11:00 07/20/16 10:59 Polyethylene Glycol 17 gm 17 gm DAILYPRN PRN GT Constipation 07/10/16 13:38 08/08/16 17:59 Propranolol HCl (Inderal) 10 mg Q12HR GT 07/09/16 21:00 08/08/16 20:59 07/12/16 09:44 Rifaximin (Xifaxan) 550 mg EVERY 12 HOURS GT 07/10/16 21:00 07/17/16 20:59 07/13/16 08:17 Vancomycin HCl 1 ea 1 ea DAILY PRN MISC PER RX PROTOCOL 07/09/16 19:30 08/08/16 19:29 Vancomycin HCl/ Sodium Chloride (Vancomycin/ Sodium Chloride) 275 ml @ 183.3 mls/ hr Q12HR@0000,1200 IVPB 07/10/16 14:30 07/15/16 14:29 07/13/16 00:39 Zinc Sulfate (Zinc Sulfate) 220 mg DAILY GT 07/10/16 09:00 08/09/16 08:59 07/13/16 08:17 SHARRI RAMÍREZ M.D. July 13, 2016 09:53
[2016-07-13] MEDS ORDERED: D5NS 1000ml IV ONE (10:02)
[2016-07-13] MEDS ORDERED: NS 275ml ONE (10:02)
[2016-07-13 10:13] LABS: CREATININE RANDOM URINE 11.1 mg/dL (Not Estab.); MICROALBUMIN/CREATININE RATIO 40.5 mg/g creat (0.0-30.0)
--- NOTE | 2016-07-13 11:36 | Diagnostic Imaging Report ---
Indication: Dyspnea Comparison: 07/09/16 A single view chest radiograph was obtained. Findings: Patchy bilateral infiltrates again demonstrated. Lung volumes are low. Heart size is stable. Tracheostomy again noted. Impression: Bilateral infiltrates. Accounting for differences in lung volume and technique there is probably no change
--- NOTE | 2016-07-13 11:43 | Diagnostic Imaging Report ---
Indication:Abdominal pain Technique: Grayscale and duplex Doppler imaging of the abdomen performed. Comparison: None Findings: There is ascites present. There is nodularity of the liver which appears heterogeneous. Postop portal venous flow demonstrated in the appropriate flow direction (hepatofugal). Also noted. Gallbladder wall thickening is present, but nonspecific in the setting of liver disease. CBD is 4 mm. The increased vascularity and serpiginous vessels in the left upper quadrant abdomen. Portosystemic varices not excluded. The spleen is enlarged measuring 14 cm. Kidneys are unremarkable. Pancreas and aorta are poorly seen. In pression: Chronic liver disease/cirrhosis. Stigmata of portal hypertension including splenomegaly, ascites, suspected portosystemic varices. Cholelithiasis. Wall thickening noted. Cholecystitis not excluded.
[2016-07-13] MEDS ORDERED: VANCOMYCIN1 GM/2502 IVPB (11:53)
--- NOTE | 2016-07-13 11:55 | Pulmonology Progress Note ---
Assessment/Plan Problems: (1) Bacteremia (2) Gross hematuria (3) Chronic respiratory failure (4) Anemia (5) Ventilator dependent (6) Liver cirrhosis (7) Decubitus ulcer (8) Ascites (9) Hyponatremia (10) Feeding by G-tube Respiratory: monitor respiratory rate, adjust FIO2, CXR Cardiac: continue pressors Renal: F/U I&O, keep IV fluid, check electrolytes Infectious Disease: check cultures, continue antibiotics Gastrointestinal: continue feedings/current rate Endocrine: monitor blood sugar, check TSH, continue sliding scale insulin Hematologic: monitor H/H, transfuse if hgb<8.5 Neurologic: PRN Ativan, PRN Morphine, keep patient comfortable Affect: PRN ativan Prophylaxis: Protonix 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, 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 Discussed with: nurses, consultants, corrections caseworker Subjective ROS Limited/Unobtainable: No Constitutional: Reports: no symptoms HEENT: Repors: no symptoms Respiratory: Reports: no symptoms Allergies: Coded Allergies: No Known Allergies (Unverified , 06/09/16) Objective Last 24 Hour Vital Signs Date Time Temp Pulse Resp B/P Pulse Ox O2 Delivery O2 Flow Rate FiO2 07/13/16 11:05 74 19 35 07/13/16 10:05 66 07/13/16 09:25 69 20 35 07/13/16 09:00 69 104/52 07/13/16 08:00 35 07/13/16 08:00 99.2 69 19 104/52 99 Mechanical Ventilator 35 07/13/16 07:20 71 22 35 07/13/16 05:25 70 21 35 07/13/16 04:00 99.1 69 20 103/56 99 Room Air 07/13/16 04:00 35 07/13/16 03:28 69 20 35 07/13/16 03:11 68 07/13/16 01:28 73 20 35 07/13/16 00:00 98.0 91 20 122/72 99 Room Air 07/13/16 00:00 35 07/12/16 23:29 67 20 35 07/12/16 23:15 72 07/12/16 21:12 68 21 35 07/12/16 20:51 66 102/56 07/12/16 20:00 99.4 66 18 102/56 97 Room Air 07/12/16 20:00 35 07/12/16 19:40 64 5/14/17 18:50 65 20 35 07/12/16 16:52 69 23 35 07/12/16 16:00 35 07/12/16 16:00 82 07/12/16 16:00 97.7 70 19 100/54 98 Mechanical Ventilator 35 07/12/16 14:35 68 29 35 07/12/16 12:47 77 24 35 07/12/16 12:00 35 07/12/16 12:00 97.5 73 25 104/55 100 Mechanical Ventilator 35 07/12/16 12:00 72 Intake and Output 07/12/16 07/13/16 19:00 07:00 Intake Total 1386.633 ml 3720.0 ml Output Total 1300 ml 1900 ml Balance 86.633 ml 1820.0 ml Free Water 100 ml 200 ml IV Total 1036.633 ml 1070.0 ml Tube Feeding 150 ml 150 ml Other 100 ml 2300 ml Output Urine Total 1300 ml 1900 ml # Bowel Movements 1 General Appearance: WD/WN HEENT: normocephalic, atraumatic Respiratory/Chest: chest wall non-tender, lungs clear Cardiovascular: normal peripheral pulses, normal rate Abdomen: normal bowel sounds, soft, non tender Genitourinary: normal external genitalia Extremities: no cyanosis Skin: no rash 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 Lymphatic: no neck adenopathy Microbiology Date/Time Source Procedure Growth Status 07/11/16 05:29 Blood Blood Culture - Preliminary NO GROWTH AFTER 24 HOURS Resulted 07/11/16 05:19 Blood Blood Culture - Preliminary Resulted 07/11/16 00:20 Sputum Gram Stain - Final Resulted 07/11/16 00:20 Sputum Culture - Preliminary Gram Negative Bacillus 1 Gram Negative Bacillus 2 Resulted Laboratory Tests 07/13/16 04:30: White Blood Count 4.8, Red Blood Count 2.71L, Hemoglobin 8.4L, Hematocrit 24.5L , Mean Corpuscular Volume 91, Mean Corpuscular Hemoglobin 31.2H, Mean Corpuscular Hemoglobin Concent 34.4, Red Cell Distribution Width 16.7H, Platelet Count 76L, Mean Platelet Volume 5.9L, Neutrophils (%) (Auto) , Lymphocytes (%) (Auto) , Monocytes (%) (Auto) , Eosinophils (%) (Auto) , Basophils (%) (Auto) , Differential Total Cells Counted 100, Neutrophils % ( Manual) 84H, Lymphocytes % (Manual) 4L, Monocytes % (Manual) 4, Eosinophils % ( Manual) 8H, Basophils % (Manual) 0, Band Neutrophils 0, Platelet Estimate DecreasedL, Platelet Morphology Normal, Hypochromasia 1+, Anisocytosis 1+, Erythrocyte Sedimentation Rate 86H, Prothrombin Time 15.2H, Prothromb Time International Ratio 1.5H, Activated Partial Thromboplast Time 42H, Sodium Level 133L, Potassium Level 3.3L, Chloride Level 95L, Carbon Dioxide Level 22, Anion Gap 16H, Blood Urea Nitrogen 9, Creatinine < 0.2L, Estimat Glomerular Filtration Rate > 60, Glucose Level 99, Calcium Level 7.9L, Phosphorus Level 3.2 , Magnesium Level 1.5L, Total Bilirubin 1.6H, Direct Bilirubin 0.6H, Aspartate Amino Transf (AST/SGOT) 53H, Alanine Aminotransferase (ALT/SGPT) 25, Alkaline Phosphatase 242H, C-Reactive Protein, Quantitative 6.0H, Total Protein 5.6L, Albumin 2.1L, Globulin 3.5, Albumin/Globulin Ratio 0.6L Current Medications Medications (Trade) Dose Ordered Sig/Hair Route PRN Reason Start Time Stop Time Status Last Admin Dose Admin Acetaminophen (Tylenol) 650 mg Q4H PRN ORAL FEVER 07/09/16 18:00 08/08/16 17:59 Albuterol/ Ipratropium (DuoNeb 0.5-3(2.5)mg/3ml) 3 ml Q4H PRN HHN Shortness of Breath 07/09/16 18:00 07/14/16 17:59 Dextrose (Dextrose 50%) STAT PRN IV Hypoglycemia 07/09/16 18:00 08/08/16 17:59 Dextrose/Sodium Chloride 1,000 ml @ 50 mls/hr Q20H IV 07/11/16 13:00 08/10/16 12:59 07/13/16 04:29 Iron Sucrose 100 mg/Sodium Chloride 60 ml @ 240 mls/hr BEDTIME IVPB 07/11/16 21:00 07/15/16 21:14 07/12/16 20:51 Lactulose (Cephulac) 20 gm QID GT 07/09/16 20:00 08/08/16 19:59 07/13/16 08:18 Levetiracetam (Keppra) 1,500 mg Q12HR GT 07/09/16 22:00 08/08/16 21:59 07/13/16 08:18 Lorazepam (Ativan 2mg/ml 1ml) 2 mg Q2H PRN IV For Anxiety 07/09/16 18:00 07/16/16 17:59 Morphine Sulfate (Morphine Sulfate) 4 mg Q4H PRN IVP Severe Pain (Pain Scale 7-10) 07/09/16 18:00 07/16/16 17:59 07/11/16 16:07 Ondansetron HCl (Zofran) 4 mg Q6H PRN IVP Nausea & Vomiting 07/09/16 18:00 08/08/16 17:59 Piperacillin Sod/ Tazobactam Sod/ Sodium Chloride (Zosyn/Sodium Chloride) 110 ml @ 220 mls/hr Q6H IVPB 07/13/16 11:00 07/20/16 10:59 Polyethylene Glycol 17 gm 17 gm DAILYPRN PRN GT Constipation 07/10/16 13:38 08/08/16 17:59 Propranolol HCl (Inderal) 10 mg Q12HR GT 07/09/16 21:00 08/08/16 20:59 07/12/16 09:44 Rifaximin (Xifaxan) 550 mg EVERY 12 HOURS GT 07/10/16 21:00 07/17/16 20:59 07/13/16 08:17 Vancomycin HCl 1 ea 1 ea DAILY PRN MISC PER RX PROTOCOL 07/09/16 19:30 08/08/16 19:29 Vancomycin HCl/ Sodium Chloride (Vancomycin/ Sodium Chloride) 275 ml @ 183.3 mls/ hr Q12HR@0000,1200 IVPB 07/10/16 14:30 07/15/16 14:29 07/13/16 00:39 Zinc Sulfate (Zinc Sulfate) 220 mg DAILY GT 07/10/16 09:00 08/09/16 08:59 07/13/16 08:17 DANTE HSIEH July 13, 2016 11:55
[2016-07-13 12:00] VITALS: BP 101/54
--- NOTE | 2016-07-13 12:24 | GI Progress Note ---
Assessment/Plan Problems: (1) Feeding by G-tube ICD Codes: Z93.1 - Gastrostomy status SNOMED: 835789917, 684725330 (2) Elevated LFTs ICD Codes: R94.5 - Abnormal results of liver function studies SNOMED: 357648215 (3) Thrombocytopenia ICD Codes: D69.6 - Thrombocytopenia, unspecified SNOMED: 200522371 (4) Hyponatremia ICD Codes: E87.1 - Hypo-osmolality and hyponatremia SNOMED: 52358313 (5) Liver cirrhosis ICD Codes: K74.60 - Unspecified cirrhosis of liver SNOMED: 01753382 (6) Ascites ICD Codes: R18.8 - Other ascites SNOMED: 135132866 (7) Anemia ICD Codes: D64.9 - Anemia, unspecified SNOMED: 577535909 (8) hep c Status: unchanged Status Narrative Discussed with Dr. Arndt. Assessment/Plan abd us reviewed >> Chronic liver disease/cirrhosis. Stigmata of portal hypertension including splenomegaly, ascites, suspected portosystemic varices. EGD scheduled for tomorrow. - NPO @ MD. - hold all blood thinners monitor H&H GTF fu labs Subjective Subjective limited Objective Last 24 Hour Vital Signs Date Time Temp Pulse Resp B/P Pulse Ox O2 Delivery O2 Flow Rate FiO2 07/13/16 12:00 98.4 73 23 101/54 100 Mechanical Ventilator 35 07/13/16 11:05 74 19 35 07/13/16 10:05 66 07/13/16 09:25 69 20 35 07/13/16 09:00 69 104/52 07/13/16 08:00 35 07/13/16 08:00 99.2 69 19 104/52 99 Mechanical Ventilator 35 07/13/16 07:20 71 22 35 07/13/16 05:25 70 21 35 07/13/16 04:00 99.1 69 20 103/56 99 Room Air 07/13/16 04:00 35 07/13/16 03:28 69 20 35 07/13/16 03:11 68 07/13/16 01:28 73 20 35 07/13/16 00:00 98.0 91 20 122/72 99 Room Air 07/13/16 00:00 35 07/12/16 23:29 67 20 35 07/12/16 23:15 72 07/12/16 21:12 68 21 35 07/12/16 20:51 66 102/56 07/12/16 20:00 99.4 66 18 102/56 97 Room Air 07/12/16 20:00 35 07/12/16 19:40 64 07/12/16 18:50 65 20 35 07/12/16 16:52 69 23 35 07/12/16 16:00 35 07/12/16 16:00 82 07/12/16 16:00 97.7 70 19 100/54 98 Mechanical Ventilator 35 07/12/16 14:35 68 29 35 07/12/16 12:47 77 24 35 Intake and Output 07/12/16 07/13/16 19:00 07:00 Intake Total 1386.633 ml 3720.0 ml Output Total 1300 ml 1900 ml Balance 86.633 ml 1820.0 ml Free Water 100 ml 200 ml IV Total 1036.633 ml 1070.0 ml Tube Feeding 150 ml 150 ml Other 100 ml 2300 ml Output Urine Total 1300 ml 1900 ml # Bowel Movements 1 Laboratory Tests Test 07/13/16 04:30 White Blood Count 4.8 K/UL (4.8-10.8) Red Blood Count 2.71 M/UL (4.70-6.10) L Hemoglobin 8.4 G/DL (14.2-18.0) L Hematocrit 24.5 % (42.0-52.0) L Mean Corpuscular Volume 91 FL (80-99) Mean Corpuscular Hemoglobin 31.2 PG (27.0-31.0) H Mean Corpuscular Hemoglobin Concent 34.4 G/DL (32.0-36.0) Red Cell Distribution Width 16.7 % (11.6-14.8) H Platelet Count 76 K/UL (150-450) L Mean Platelet Volume 5.9 FL (6.5-10.1) L Neutrophils (%) (Auto) % (45.0-75.0) Lymphocytes (%) (Auto) % (20.0-45.0) Monocytes (%) (Auto) % (1.0-10.0) Eosinophils (%) (Auto) % (0.0-3.0) Basophils (%) (Auto) % (0.0-2.0) Differential Total Cells Counted 100 Neutrophils % (Manual) 84 % (45-75) H Lymphocytes % (Manual) 4 % (20-45) L Monocytes % (Manual) 4 % (1-10) Eosinophils % (Manual) 8 % (0-3) H Basophils % (Manual) 0 % (0-2) Band Neutrophils 0 % (0-8) Platelet Estimate Decreased L Platelet Morphology Normal Hypochromasia 1+ Anisocytosis 1+ Erythrocyte Sedimentation Rate 86 MM/HR (0-20) H Prothrombin Time 15.2 SEC (9.30-11.50) H Prothromb Time International Ratio 1.5 (0.9-1.1) H Activated Partial Thromboplast Time 42 SEC (23-33) H Sodium Level 133 mEQ/L (135-145) L Potassium Level 3.3 mEQ/L (3.4-4.9) L Chloride Level 95 mEQ/L (98-107) L Carbon Dioxide Level 22 mEQ/L (20-30) Anion Gap 16 (5-15) H Blood Urea Nitrogen 9 mg/dL (7-23) Creatinine < 0.2 mg/dL (0.7-1.2) L Estimat Glomerular Filtration Rate > 60 mL/min (>60) Glucose Level 99 mg/dL (74-106) Calcium Level 7.9 mg/dL (8.6-10.2) L Phosphorus Level 3.2 mg/dL (2.5-4.8) Magnesium Level 1.5 mg/dL (1.7-2.5) L Total Bilirubin 1.6 mg/dL (0.0-1.2) H Direct Bilirubin 0.6 mg/dL (0.1-0.3) H Aspartate Amino Transf (AST/SGOT) 53 U/L (5-40) H Alanine Aminotransferase (ALT/SGPT) 25 U/L (3-41) Alkaline Phosphatase 242 U/L (40-129) H C-Reactive Protein, Quantitative 6.0 mg/dL (< 0.5) H Total Protein 5.6 g/dL (6.6-8.7) L Albumin 2.1 g/dL (3.5-5.2) L Globulin 3.5 g/dL Albumin/Globulin Ratio 0.6 (1.0-2.7) L Height (Feet): 5 Height (Inches): 6.00 Weight (Pounds): 156 General Appearance: no apparent distress, alert Cardiovascular: normal rate Respiratory/Chest: normal breath sounds, no respiratory distress Abdominal Exam: site - c/d/i Paulette Romero N.P. July 13, 2016 12:24
--- NOTE | 2016-07-13 12:25 | General Progress Note ---
Assessment/Plan Assessment/Plan Assessment and plan: # Hematuria, julisa potentially cervantes catheter trauma - has improved markedly, at this point no hematuria noted x 1-2d, and outpatient cystoscopy as per Dr. [place] # Anemia rule out GI bleed - GI service to evaluate, anemia w/u shows ACD # Thrombocytopenia potentially 2/2 sepsis, elevated lactate, likely 2/2 hepatosplenomegaly # Anemia 2/2 chronic disease - have reviewed iron panel # Hyponatremia potentially 2/2 dehydration # Ventilator dependent - respiratory distress, s/p trach # Cirrhosis # Hepatosplenomegaly # Malnutrition Subjective Constitutional: Reports: no symptoms HEENT: Reports: no symptoms Cardiovascular: Reports: no symptoms Respiratory: Reports: no symptoms Gastrointestinal/Abdominal: Reports: no symptoms Genitourinary: Reports: no symptoms Neurologic/Psychiatric: Reports: anxiety Endocrine: Reports: no symptoms Hematologic/Lymphatic: Reports: anemia Allergies: Coded Allergies: No Known Allergies (Unverified , 06/09/16) Subjective no fevers, chills, or night sweats reported Objective Last 24 Hour Vital Signs Date Time Temp Pulse Resp B/P Pulse Ox O2 Delivery O2 Flow Rate FiO2 07/13/16 12:00 98.4 73 23 101/54 100 Mechanical Ventilator 35 07/13/16 11:05 74 19 35 07/13/16 10:05 66 07/13/16 09:25 69 20 35 07/13/16 09:00 69 104/52 07/13/16 08:00 35 07/13/16 08:00 99.2 69 19 104/52 99 Mechanical Ventilator 35 07/13/16 07:20 71 22 35 07/13/16 05:25 70 21 35 07/13/16 04:00 99.1 69 20 103/56 99 Room Air 07/13/16 04:00 35 07/13/16 03:28 69 20 35 07/13/16 03:11 68 07/13/16 01:28 73 20 35 07/13/16 00:00 98.0 91 20 122/72 99 Room Air 07/13/16 00:00 35 07/12/16 23:29 67 20 35 07/12/16 23:15 72 07/12/16 21:12 68 21 35 07/12/16 20:51 66 102/56 07/12/16 20:00 99.4 66 18 102/56 97 Room Air 07/12/16 20:00 35 07/12/16 19:40 64 07/12/16 18:50 65 20 35 07/12/16 16:52 69 23 35 07/12/16 16:00 35 07/12/16 16:00 82 07/12/16 16:00 97.7 70 19 100/54 98 Mechanical Ventilator 35 07/12/16 14:35 68 29 35 07/12/16 12:47 77 24 35 Intake and Output 07/12/16 07/13/16 19:00 07:00 Intake Total 1386.633 ml 3720.0 ml Output Total 1300 ml 1900 ml Balance 86.633 ml 1820.0 ml Free Water 100 ml 200 ml IV Total 1036.633 ml 1070.0 ml Tube Feeding 150 ml 150 ml Other 100 ml 2300 ml Output Urine Total 1300 ml 1900 ml # Bowel Movements 1 Laboratory Tests 07/13/16 04:30: White Blood Count 4.8, Red Blood Count 2.71L, Hemoglobin 8.4L, Hematocrit 24.5L , Mean Corpuscular Volume 91, Mean Corpuscular Hemoglobin 31.2H, Mean Corpuscular Hemoglobin Concent 34.4, Red Cell Distribution Width 16.7H, Platelet Count 76L, Mean Platelet Volume 5.9L, Neutrophils (%) (Auto) , Lymphocytes (%) (Auto) , Monocytes (%) (Auto) , Eosinophils (%) (Auto) , Basophils (%) (Auto) , Differential Total Cells Counted 100, Neutrophils % ( Manual) 84H, Lymphocytes % (Manual) 4L, Monocytes % (Manual) 4, Eosinophils % ( Manual) 8H, Basophils % (Manual) 0, Band Neutrophils 0, Platelet Estimate DecreasedL, Platelet Morphology Normal, Hypochromasia 1+, Anisocytosis 1+, Erythrocyte Sedimentation Rate 86H, Prothrombin Time 15.2H, Prothromb Time International Ratio 1.5H, Activated Partial Thromboplast Time 42H, Sodium Level 133L, Potassium Level 3.3L, Chloride Level 95L, Carbon Dioxide Level 22, Anion Gap 16H, Blood Urea Nitrogen 9, Creatinine < 0.2L, Estimat Glomerular Filtration Rate > 60, Glucose Level 99, Calcium Level 7.9L, Phosphorus Level 3.2 , Magnesium Level 1.5L, Total Bilirubin 1.6H, Direct Bilirubin 0.6H, Aspartate Amino Transf (AST/SGOT) 53H, Alanine Aminotransferase (ALT/SGPT) 25, Alkaline Phosphatase 242H, C-Reactive Protein, Quantitative 6.0H, Total Protein 5.6L, Albumin 2.1L, Globulin 3.5, Albumin/Globulin Ratio 0.6L Height (Feet): 5 Height (Inches): 6.00 Weight (Pounds): 156 General Appearance: no apparent distress EENT: pharynx normal Neck: normal alignment Cardiovascular: regular rhythm Respiratory/Chest: lungs clear Abdomen: soft Pelvis: no masses Extremities: normal inspection Edema: 1+ Leg (L), 1+ Leg (R) Neurologic: alert Skin: warm/dry Art Mackenzie July 13, 2016 12:25
--- NOTE | 2016-07-13 15:08 | General Progress Note ---
Assessment/Plan Status: stable Status Narrative hematuria resolved Assessment/Plan DC CBI Subjective ROS Limited/Unobtainable: Yes Allergies: Coded Allergies: No Known Allergies (Unverified , 06/09/16) Objective Last 24 Hour Vital Signs Date Time Temp Pulse Resp B/P Pulse Ox O2 Delivery O2 Flow Rate FiO2 07/13/16 13:10 77 20 35 07/13/16 12:00 74 07/13/16 12:00 35 07/13/16 12:00 98.4 73 23 101/54 100 Mechanical Ventilator 35 07/13/16 11:05 74 19 35 07/13/16 10:05 66 07/13/16 09:25 69 20 35 07/13/16 09:00 69 104/52 07/13/16 08:00 35 07/13/16 08:00 99.2 69 19 104/52 99 Mechanical Ventilator 35 07/13/16 07:20 71 22 35 07/13/16 05:25 70 21 35 07/13/16 04:00 99.1 69 20 103/56 99 Room Air 07/13/16 04:00 35 07/13/16 03:28 69 20 35 07/13/16 03:11 68 07/13/16 01:28 73 20 35 07/13/16 00:00 98.0 91 20 122/72 99 Room Air 07/13/16 00:00 35 07/12/16 23:29 67 20 35 07/12/16 23:15 72 07/12/16 21:12 68 21 35 07/12/16 20:51 66 102/56 07/12/16 20:00 99.4 66 18 102/56 97 Room Air 07/12/16 20:00 35 07/12/16 19:40 64 07/12/16 18:50 65 20 35 07/12/16 16:52 69 23 35 07/12/16 16:00 35 07/12/16 16:00 82 07/12/16 16:00 97.7 70 19 100/54 98 Mechanical Ventilator 35 Intake and Output 07/12/16 07/13/16 19:00 07:00 Intake Total 1386.633 ml 3720.0 ml Output Total 1300 ml 1900 ml Balance 86.633 ml 1820.0 ml Free Water 100 ml 200 ml IV Total 1036.633 ml 1070.0 ml Tube Feeding 150 ml 150 ml Other 100 ml 2300 ml Output Urine Total 1300 ml 1900 ml # Bowel Movements 1 Laboratory Tests 07/13/16 04:30: White Blood Count 4.8, Red Blood Count 2.71L, Hemoglobin 8.4L, Hematocrit 24.5L , Mean Corpuscular Volume 91, Mean Corpuscular Hemoglobin 31.2H, Mean Corpuscular Hemoglobin Concent 34.4, Red Cell Distribution Width 16.7H, Platelet Count 76L, Mean Platelet Volume 5.9L, Neutrophils (%) (Auto) , Lymphocytes (%) (Auto) , Monocytes (%) (Auto) , Eosinophils (%) (Auto) , Basophils (%) (Auto) , Differential Total Cells Counted 100, Neutrophils % ( Manual) 84H, Lymphocytes % (Manual) 4L, Monocytes % (Manual) 4, Eosinophils % ( Manual) 8H, Basophils % (Manual) 0, Band Neutrophils 0, Platelet Estimate DecreasedL, Platelet Morphology Normal, Hypochromasia 1+, Anisocytosis 1+, Erythrocyte Sedimentation Rate 86H, Prothrombin Time 15.2H, Prothromb Time International Ratio 1.5H, Activated Partial Thromboplast Time 42H, Sodium Level 133L, Potassium Level 3.3L, Chloride Level 95L, Carbon Dioxide Level 22, Anion Gap 16H, Blood Urea Nitrogen 9, Creatinine < 0.2L, Estimat Glomerular Filtration Rate > 60, Glucose Level 99, Calcium Level 7.9L, Phosphorus Level 3.2 , Magnesium Level 1.5L, Total Bilirubin 1.6H, Direct Bilirubin 0.6H, Aspartate Amino Transf (AST/SGOT) 53H, Alanine Aminotransferase (ALT/SGPT) 25, Alkaline Phosphatase 242H, C-Reactive Protein, Quantitative 6.0H, Total Protein 5.6L, Albumin 2.1L, Globulin 3.5, Albumin/Globulin Ratio 0.6L Height (Feet): 5 Height (Inches): 6.00 Weight (Pounds): 156 Neck: supple Cardiovascular: normal rate Respiratory/Chest: lungs clear Abdomen: non tender Pelvis: normal external exam Objective urine clear Elia Montana MD July 13, 2016 15:08
[2016-07-13 16:00] VITALS: BP 112/57
--- NOTE | 2016-07-13 16:01 | Diagnostic Imaging Report ---
Indication: Abdominal pain Technique: Continuous helical transaxial imaging of the abdomen and pelvis was obtained from the lung bases to the pubic symphysis during intravenous contrast administration. Coronal 2-D reformats were also obtained. Study obtained in a Siemens sensation [address] Total Dose length Product (DLP): [address] Dose Index Volume (CTDIvol): 18 mGy Comparison: 05/24/16 Findings: Intravenous contrast was administered for the current study. Bilateral pleural effusions are present with associated posterior basilar atelectasis worse on the right. The liver attenuation is relatively homogeneous although the timing of the scan is suboptimally early. There is no focal mass identified. There is moderate ascites again demonstrated. Gallstones are present. Splenomegaly is noted. Recanalized umbilical vein and evidence of portosystemic varices again noted. Nonobstructive right renal calculus demonstrated once again. No gross abnormalities of the pancreas identified. A Colon catheter is present. Small bilateral inguinal hernias are present. Anasarca noted. Narrowing of lower lumbar discs and hypertrophic spurring noted. Impression: No definite evidence of hepatoma. Liver cirrhosis with stigmata of portal hypertension. Moderate ascites again noted. Small right pleural effusion with associated basilar atelectasis trace left pleural effusion. Atherosclerotic vascular disease. Gallstones Nonobstructive stone in the right kidney Colon catheter Anasarca Lateral inguinal hernias containing fat The CT scanner at [facility] is accredited by the [employer] and the scans are performed using dose optimization techniques as appropriate to a performed exam including Automatic Exposure control.
--- NOTE | 2016-07-13 16:32 | Nephrology Progress Note ---
Assessment/Plan Assessment 1. isovolemic hyponatremia improving 2. Hypocalcemia. 3. Gross hematuria. 4.hypokalemia 5.hypomagnesemia Plan plan replace k replace mg to continue ns .9 lasix iv mix all ivpb with .9 free water restriction Subjective Constitutional: Reports: no symptoms HEENT: Reports: no symptoms Genitourinary: Reports: no symptoms Neurologic/Psychiatric: Reports: no symptoms Subjective No acute over night awake and alert Objective Objective Last 24 Hour Vital Signs Date Time Temp Pulse Resp B/P Pulse Ox O2 Delivery O2 Flow Rate FiO2 07/13/16 16:00 93 07/13/16 16:00 35 07/13/16 13:10 77 20 35 07/13/16 12:00 74 07/13/16 12:00 35 07/13/16 12:00 98.4 73 23 101/54 100 Mechanical Ventilator 35 07/13/16 11:05 74 19 35 07/13/16 10:05 66 07/13/16 09:25 69 20 35 07/13/16 09:00 69 104/52 07/13/16 08:00 35 07/13/16 08:00 99.2 69 19 104/52 99 Mechanical Ventilator 35 07/13/16 07:20 71 22 35 07/13/16 05:25 70 21 35 07/13/16 04:00 99.1 69 20 103/56 99 Room Air 07/13/16 04:00 35 07/13/16 03:28 69 20 35 07/13/16 03:11 68 07/13/16 01:28 73 20 35 07/13/16 00:00 98.0 91 20 122/72 99 Room Air 07/13/16 00:00 35 07/12/16 23:29 67 20 35 07/12/16 23:15 72 07/12/16 21:12 68 21 35 07/12/16 20:51 66 102/56 07/12/16 20:00 99.4 66 18 102/56 97 Room Air 07/12/16 20:00 35 07/12/16 19:40 64 07/12/16 18:50 65 20 35 07/12/16 16:52 69 23 35 Intake and Output 07/12/16 07/13/16 19:00 07:00 Intake Total 1386.633 ml 3720.0 ml Output Total 1300 ml 1900 ml Balance 86.633 ml 1820.0 ml Free Water 100 ml 200 ml IV Total 1036.633 ml 1070.0 ml Tube Feeding 150 ml 150 ml Other 100 ml 2300 ml Output Urine Total 1300 ml 1900 ml # Bowel Movements 1 Laboratory Tests 07/13/16 04:30: White Blood Count 4.8, Red Blood Count 2.71L, Hemoglobin 8.4L, Hematocrit 24.5L , Mean Corpuscular Volume 91, Mean Corpuscular Hemoglobin 31.2H, Mean Corpuscular Hemoglobin Concent 34.4, Red Cell Distribution Width 16.7H, Platelet Count 76L, Mean Platelet Volume 5.9L, Neutrophils (%) (Auto) , Lymphocytes (%) (Auto) , Monocytes (%) (Auto) , Eosinophils (%) (Auto) , Basophils (%) (Auto) , Differential Total Cells Counted 100, Neutrophils % ( Manual) 84H, Lymphocytes % (Manual) 4L, Monocytes % (Manual) 4, Eosinophils % ( Manual) 8H, Basophils % (Manual) 0, Band Neutrophils 0, Platelet Estimate DecreasedL, Platelet Morphology Normal, Hypochromasia 1+, Anisocytosis 1+, Erythrocyte Sedimentation Rate 86H, Prothrombin Time 15.2H, Prothromb Time International Ratio 1.5H, Activated Partial Thromboplast Time 42H, Sodium Level 133L, Potassium Level 3.3L, Chloride Level 95L, Carbon Dioxide Level 22, Anion Gap 16H, Blood Urea Nitrogen 9, Creatinine < 0.2L, Estimat Glomerular Filtration Rate > 60, Glucose Level 99, Calcium Level 7.9L, Phosphorus Level 3.2 , Magnesium Level 1.5L, Total Bilirubin 1.6H, Direct Bilirubin 0.6H, Aspartate Amino Transf (AST/SGOT) 53H, Alanine Aminotransferase (ALT/SGPT) 25, Alkaline Phosphatase 242H, C-Reactive Protein, Quantitative 6.0H, Total Protein 5.6L, Albumin 2.1L, Globulin 3.5, Albumin/Globulin Ratio 0.6L Height (Feet): 5 Height (Inches): 6.00 Weight (Pounds): 156 Objective HEENT: Head and neck, no JVP, no LAD, and no thyromegaly. Trach is in place. Extraocular movement is intact. Pupils are reactive to light and accommodation. CHEST: Lungs are clear to auscultation. CARDIAC: Regular rate and rhythm. S1 and S2. No murmur. No rub. ABDOMEN: Soft, nontender, and nondistended. EXTREMITIES: Trace edema. No clubbing. No cyanosis. ALDEN GUERRERO July 13, 2016 16:32
[2016-07-13 20:00] VITALS: BP 118/57
--- NOTE | 2016-07-13 21:23 | Diagnostic Imaging Report ---
APPROVED REPORT CPT Code: 96925 Present Symptoms Comments: COPD HTN BILATERAL: Imaging reveals a patent deep venous system bilaterally. There is no evidence of thrombus within the femoral, popliteal or tibial segments. The greater saphenous veins are also within normal limits. Doppler indicates normal spontaneous flow within these segments.
[2016-07-13] MEDS: Iron Sucrose 100 MG in NS 55 ML IVPB SCH (21:52)
[2016-07-14] VITALS (7 sets, daily range): BP systolic 104–124; BP diastolic 53–75
[2016-07-14] MEDS: Vancomycin 1 GM in NS 275 ML IVPB SCH ×2 (00:18→13:49)
[2016-07-14] MEDS: D5NS 1,000 ML IV SCH ×2 (01:00→05:01)
[2016-07-14] MEDS: Piperacillin/Tazobactam 3.375 GM in NS 110 ML IVPB SCH ×3 (05:00→10:46)
[2016-07-14 05:33] LABS: MEAN CORPUSCULAR HEMOGLOBIN 30.1 PG (27.0-31.0); MEAN CORPUSCULAR HGB CONC 32.9 G/DL (32.0-36.0); MEAN CORPUSCULAR VOLUME 91 FL (80-99); MEAN PLATELET VOLUME 6.1 FL (6.5-10.1); PLATELET COUNT 83 K/UL (150-450); RED BLOOD COUNT 2.99 M/UL (4.70-6.10); RED CELL DISTRIBUTION WIDTH 16.9 % (11.6-14.8); WHITE BLOOD COUNT 7.6 K/UL (4.8-10.8)
[2016-07-14 05:41] LABS: INR 1.5 (0.9-1.1); PROTHROMBIN TIME 15.9 SEC (9.30-11.50)
[2016-07-14 05:58] LABS: ALANINE AMINOTRANSFERASE 30 U/L (3-41); ALBUMIN/GLOBULIN RATIO 0.5 (1.0-2.7); ANION GAP 16 (5-15); ASPARTATE AMINO TRANSFERASE 56 U/L (5-40); CARBON DIOXIDE 22 mEQ/L (20-30); CHLORIDE 99 mEQ/L (98-107); CREATININE < 0.2 mg/dL (0.7-1.2); GLOMERULAR FILTRATION RATE > 60 mL/min (>60); HEMOLYSIS 1; POTASSIUM 3.6 mEQ/L (3.4-4.9); SODIUM 137 mEQ/L (135-145); TOTAL PROTEIN 5.7 g/dL (6.6-8.7)
[2016-07-14 06:21] LABS: BILIRUBIN,DIRECT 0.5 mg/dL (0.1-0.3)
--- NOTE | 2016-07-14 07:20 | Pre-Procedure Note/Attestation ---
Pre-Procedure Note/Attestation Complete Prior to Procedure Planned Procedure: not applicable Procedure Narrative: egd Indications for Procedure Pre-Operative Diagnosis: gib Attestation I attest that I discussed the nature of the procedure; its benefits; risks and complications; and alternatives (and the risks and benefits of such alternatives ), prior to the procedure, with the patient (or the patient's legal financial sales representative). I attest that, if there was a reasonable possibility of needing a blood transfusion, the patient (or the patient's legal financial sales representative) was given the [facility] standardized written summary, pursuant to the [place] Blood Safety Act ([place] Health and Safety Code # 1645, as amended). I attest that I re-evaluated the patient just prior to the surgery and that there has been no change in the patient's H&P, except as documented below: BRIA VELASQUEZ July 14, 2016 07:20
--- NOTE | 2016-07-14 07:53 | Nephrology Progress Note ---
Assessment/Plan Assessment 1. isovolemic hyponatremia improving 2. Hypocalcemia. 3. Gross hematuria. 4.hypokalemia resolved 5.hypomagnesemia resolved Plan plan to continue ns .9 lasix iv mix all ivpb with .9 free water restriction Subjective Constitutional: Reports: no symptoms HEENT: Reports: no symptoms Genitourinary: Reports: no symptoms Neurologic/Psychiatric: Reports: no symptoms Subjective No acute over night awake and alert Objective Objective Last 24 Hour Vital Signs Date Time Temp Pulse Resp B/P Pulse Ox O2 Delivery O2 Flow Rate FiO2 07/14/16 06:51 82 24 35 07/14/16 05:01 74 21 35 07/14/16 04:00 76 07/14/16 04:00 97.6 76 14 104/53 99 Nasal Cannula 07/14/16 04:00 35 07/14/16 03:25 88 19 35 07/14/16 00:36 90 22 35 07/14/16 00:02 97.0 85 14 124/75 100 Mechanical Ventilator 35 07/14/16 00:00 79 07/13/16 23:05 80 25 35 07/13/16 21:52 88 118/57 07/13/16 21:15 90 24 35 07/13/16 20:00 35 07/13/16 20:00 89 07/13/16 20:00 98.2 88 17 118/57 99 Room Air 07/13/16 19:05 93 26 35 07/13/16 17:25 74 19 35 07/13/16 16:00 99.1 86 23 112/57 99 Mechanical Ventilator 35 07/13/16 16:00 93 07/13/16 16:00 35 07/13/16 13:10 77 20 35 07/13/16 12:00 74 07/13/16 12:00 35 07/13/16 12:00 98.4 73 23 101/54 100 Mechanical Ventilator 35 07/13/16 11:05 74 19 35 07/13/16 10:05 66 07/13/16 09:25 69 20 35 07/13/16 09:00 69 104/52 07/13/16 08:00 35 07/13/16 08:00 99.2 69 19 104/52 99 Mechanical Ventilator 35 Intake and Output 07/13/16 07/14/16 19:00 07:00 Intake Total 1145.0 ml 750 ml Output Total 475 ml 6450 ml Balance 670.0 ml -5700 ml IV Total 1055.0 ml 600 ml Tube Feeding 90 ml 150 ml Output Urine Total 475 ml 250 ml Other 6200 ml # Bowel Movements 2 Laboratory Tests 07/14/16 03:50: White Blood Count 7.6#, Red Blood Count 2.99L, Hemoglobin 9.0L, Hematocrit 27.4L , Mean Corpuscular Volume 91, Mean Corpuscular Hemoglobin 30.1, Mean Corpuscular Hemoglobin Concent 32.9, Red Cell Distribution Width 16.9H, Platelet Count 83L, Mean Platelet Volume 6.1L, Neutrophils (%) (Auto) , Lymphocytes (%) (Auto) , Monocytes (%) (Auto) , Eosinophils (%) (Auto) , Basophils (%) (Auto) , Neutrophils % (Manual) [Pending], Lymphocytes % (Manual) [Pending], Platelet Estimate [Pending], Platelet Morphology [Pending], Prothrombin Time 15.9H, Prothromb Time International Ratio 1.5H, Activated Partial Thromboplast Time 40H, Sodium Level 137, Potassium Level 3.6, Chloride Level 99, Carbon Dioxide Level 22, Anion Gap 16H, Blood Urea Nitrogen 7, Creatinine < 0.2L, Estimat Glomerular Filtration Rate > 60, Glucose Level 115H, Calcium Level 8.0L, Total Bilirubin 1.6H, Direct Bilirubin 0.5H, Aspartate Amino Transf (AST/SGOT) 56H, Alanine Aminotransferase (ALT/SGPT) 30, Alkaline Phosphatase 260H, Total Protein 5.7L, Albumin 2.1L, Globulin 3.6, Albumin/ Globulin Ratio 0.5L Height (Feet): 5 Height (Inches): 6.00 Weight (Pounds): 156 Objective HEENT: Head and neck, no JVP, no LAD, and no thyromegaly. Trach is in place. Extraocular movement is intact. Pupils are reactive to light and accommodation. CHEST: Lungs are clear to auscultation. CARDIAC: Regular rate and rhythm. S1 and S2. No murmur. No rub. ABDOMEN: Soft, nontender, and nondistended. EXTREMITIES: Trace edema. No clubbing. No cyanosis. ALDEN GUERRERO July 14, 2016 07:53
[2016-07-14 08:13] LABS: BAND NEUTROPHILS % (MANUAL) 1 % (0-8); BASOPHILS % (MANUAL) 1 % (0-2); LYMPHOCYTES % (MANUAL) 8 % (20-45); NEUTROPHILS % (MANUAL) 82 % (45-75); TOTAL CELLS COUNTED 100
[2016-07-14 08:15] LABS: ANISOCYTOSIS 1+; EOSINOPHILS % (MANUAL) 0 % (0-3); HYPOCHROMASIA 2+; PLATELET CLUMPS 1+; PLATELET ESTIMATE DECREASED; PLATELET MORPHOLOGY NORMAL; SPHEROCYTES 1+
--- NOTE | 2016-07-14 09:08 | Endoscopy Procedure Note ---
Endoscopy Procedure Note Indication for Procedure: gib Procedures Performed: EGD Operative Findings/Diagnosis: esoph varices Specimen: yes Pt Tolerated Procedure Well: Yes Estimated Blood Loss: none Anesthesiologist: [email or web address] Anesthesia: MAC Implant(s) used?: No 50 yrs or older w/o bx or poly: Not Applicable 10yrs. F/U not recommended: Not Applicable BRIA VELASQUEZ July 14, 2016 09:08
--- NOTE | 2016-07-14 09:17 | Immediate Post-Op Evaluation ---
Immediate Post-Op Evalulation Immediate Post-Op Evalulation Procedure: EGD Date of Evaluation: July 14, 2016 Time of Evaluation: 09:10 IV Fluids: 150 Blood Pressure Systolic: 95 Blood Pressure Diastolic: 65 Pulse Rate: 70 Respiratory Rate: 15 O2 Sat by Pulse Oximetry: 97 Patient Status: reacts, ventilated Hydration Status: adequate Drug: none FAN DUKES CRNA July 14, 2016 09:17
--- NOTE | 2016-07-14 09:19 | Anethesia Preoperative Eval ---
Anesthesia Pre-op PMH/ROS General Date of Evaluation: July 14, 2016 Time of Evaluation: 09:00 Anesthesiologist: tanmay ASA Score: ASA 4 Mallampati Score Class I : Soft palate, uvula, fauces, pillars visible Class II: Soft palate, uvula, fauces visible Class III: Soft palate, base of uvula visible Class IV: Only hard plate visible Mallampati Classification: Class III Surgeon: ina Diagnosis: anemia Surgical Procedure: EGD/Banding Anesthesia History: none Family History: no anesthesia problems Allergies: Coded Allergies: No Known Allergies (Unverified , 06/09/16) Medications: see eMAR Past Medical History Cardiovascular: Reports: HTN Pulmonary: Reports: other - chronic resp failure/trached and mechanically ventilated Gastrointestinal/Genitourinary: Reports: other - liver cirrohosis/varices Neurologic/Psychiatric: Denies: CVA, TIA, dementia, depression/anxiety, other Endocrine: Denies: DM, hypothyroidism, other, steroids HEENT: Denies: [place] (L), [place] (R), cataract (L), cataract (R), glaucoma, other Hematology/Immune: Reports: anemia PSxH Narrative: Trached Anesthesia Pre-op Phys. Exam Physician Exam Last Vital Signs Date Time Temp Pulse Resp B/P Pulse Ox O2 Delivery O2 Flow Rate FiO2 07/14/16 08:32 97.7 74 21 110/58 97 Nasal Cannula 50 Constitutional: NAD Neurologic: CN 2-12 intact Cardiovascular: RRR Respiratory: other Gastrointestinal: S/NT/ND Airway Exam Mallampati Score: Class III MO: limited ROM: limited Teeth: missing Dentures: no lower, no upper Anesthesia Pre-op A/P Labs Hematology Test 07/14/16 03:50 White Blood Count 7.6 K/UL (4.8-10.8) # Red Blood Count 2.99 M/UL (4.70-6.10) L Hemoglobin 9.0 G/DL (14.2-18.0) L Hematocrit 27.4 % (42.0-52.0) L Mean Corpuscular Volume 91 FL (80-99) Mean Corpuscular Hemoglobin 30.1 PG (27.0-31.0) Mean Corpuscular Hemoglobin Concent 32.9 G/DL (32.0-36.0) Red Cell Distribution Width 16.9 % (11.6-14.8) H Platelet Count 83 K/UL (150-450) L Mean Platelet Volume 6.1 FL (6.5-10.1) L Neutrophils (%) (Auto) % (45.0-75.0) Lymphocytes (%) (Auto) % (20.0-45.0) Monocytes (%) (Auto) % (1.0-10.0) Eosinophils (%) (Auto) % (0.0-3.0) Basophils (%) (Auto) % (0.0-2.0) Differential Total Cells Counted 100 Neutrophils % (Manual) 82 % (45-75) H Lymphocytes % (Manual) 8 % (20-45) L Monocytes % (Manual) 8 % (1-10) Eosinophils % (Manual) 0 % (0-3) Basophils % (Manual) 1 % (0-2) Band Neutrophils 1 % (0-8) Platelet Estimate Decreased L Platelet Morphology Normal Clumped Platelets 1+ Hypochromasia 2+ Anisocytosis 1+ Spherocytes 1+ Coagulation Test 07/14/16 03:50 Prothrombin Time 15.9 SEC (9.30-11.50) H Prothromb Time International Ratio 1.5 (0.9-1.1) H Activated Partial Thromboplast Time 40 SEC (23-33) H Chemistry Test 07/14/16 03:50 Sodium Level 137 mEQ/L (135-145) Potassium Level 3.6 mEQ/L (3.4-4.9) Chloride Level 99 mEQ/L (98-107) Carbon Dioxide Level 22 mEQ/L (20-30) Anion Gap 16 (5-15) H Blood Urea Nitrogen 7 mg/dL (7-23) Creatinine < 0.2 mg/dL (0.7-1.2) L Estimat Glomerular Filtration Rate > 60 mL/min (>60) Glucose Level 115 mg/dL (74-106) H Calcium Level 8.0 mg/dL (8.6-10.2) L Total Bilirubin 1.6 mg/dL (0.0-1.2) H Direct Bilirubin 0.5 mg/dL (0.1-0.3) H Aspartate Amino Transf (AST/SGOT) 56 U/L (5-40) H Alanine Aminotransferase (ALT/SGPT) 30 U/L (3-41) Alkaline Phosphatase 260 U/L (40-129) H Total Protein 5.7 g/dL (6.6-8.7) L Albumin 2.1 g/dL (3.5-5.2) L Globulin 3.6 g/dL Albumin/Globulin Ratio 0.5 (1.0-2.7) L Studies Pre-op Studies: EKG - sr Risk Assessment & Plan Plan: mac Status Change Before Surgery: No Pre-Antibiotics Drug: none FAN DUKES CRNA July 14, 2016 09:19
--- NOTE | 2016-07-14 09:20 | 48 Hour Post Anesthesia Eval ---
Post Anesthesia Evaluation Procedure: EGD Date of Evaluation: July 14, 2016 Time of Evaluation: 09:20 Blood Pressure Systolic: 120 0: 60 Pulse Rate: 70 Respiratory Rate: 15 O2 Sat by Pulse Oximetry: 98 Airway: other - mechanically ventilated via trach Hydration Status: adequate Mental Status/LOC: patient returned to baseline Post-Anesthesia Complications: none Follow-up care needed: N/A FAN DUKES CRNA July 14, 2016 09:20
[2016-07-14] MEDS: Lactulose 20gm/30ml UDC GT SCH ×4 (10:44→20:23)
[2016-07-14] MEDS: Propranolol 10mg tab GT SCH ×2 (10:45→20:24)
[2016-07-14] MEDS: Zinc Sulfate 220mg cap GT SCH (10:45)
[2016-07-14] MEDS: levETIRAcetam 500mg/5ml Liquid GT SCH ×2 (10:45→20:25)
[2016-07-14] MEDS: Rifaximin 550mg tab GT SCH ×2 (10:46→20:24)
--- NOTE | 2016-07-14 10:52 | Infectious Diseases Prog Note ---
Assessment/Plan Assessment/Plan ASSESSMENT: 55 y/o male with: // Polymicrobial ( MRSA, M.morganii ,PSA ) bacteremia 4/ , repeat BCx :Staph A ?wound vs urinary vs pulmonary source - - TTE(-) SBE // Recurrent gross hematuria r/o recurrent UTI - clearing, no UA or culture sent d/t CBI inflammatory change. The urinary bladder is decompressed with an indwelling Colon catheter. Air pockets within the urinary bladder likely reflect sequela of recent instrumentation/catheterization. // Possible HCAP / VAP - SCx PSA and Pr. 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, osteomyelitis - WCx MRSA, M.morganii // HCV Ab+ // Negative HIV // Elev Alk Ph: // Afebrile without leukocytosis // Elevated ESR, CRP // Severe anemia - transfusing, GI following, EGD Esophageal Varicosis, // Chronic liver disease / cirrhosis with elevated LFTs, US : GB wall thickening ( probably 2nd to ascites ) CT: Liver cirrhosis with stigmata of portal hypertension // Chronic VDRF SP trach, PEG // h/o CVA // [facility] resident // MDRO colonized // NKDA // Full Code PLAN: - continue empiric IV vancomycin d# 5 /14 , add IV Merrem and Colistin INH d# 1 , DC zosyn d # 4 - f/u cultures - monitor CBC, temperatures - monitor BMP - monitor CXR - vent support, trach care, aspiration precaution - wound care - HIDA scan Subjective Allergies: Coded Allergies: No Known Allergies (Unverified , 06/09/16) Subjective SP EGD Objective Vital Signs Last 24 Hour Vital Signs Date Time Temp Pulse Resp B/P Pulse Ox O2 Delivery O2 Flow Rate FiO2 07/14/16 09:23 62 20 35 07/14/16 09:20 70 15 98 07/14/16 09:17 70 15 97 07/14/16 08:32 97.7 74 21 110/58 97 Nasal Cannula 50 07/14/16 08:01 72 07/14/16 08:00 35 07/14/16 06:51 82 24 35 07/14/16 05:01 74 21 35 07/14/16 04:00 76 07/14/16 04:00 97.6 76 14 104/53 99 Nasal Cannula 07/14/16 04:00 35 07/14/16 03:25 88 19 35 07/14/16 00:36 90 22 35 07/14/16 00:02 97.0 85 14 124/75 100 Mechanical Ventilator 35 07/14/16 00:00 79 07/13/16 23:05 80 25 35 07/13/16 21:52 88 118/57 07/13/16 21:15 90 24 35 07/13/16 20:00 35 07/13/16 20:00 89 07/13/16 20:00 98.2 88 17 118/57 99 Room Air 07/13/16 19:05 93 26 35 07/13/16 17:25 74 19 35 07/13/16 16:00 99.1 86 23 112/57 99 Mechanical Ventilator 35 07/13/16 16:00 93 07/13/16 16:00 35 07/13/16 13:10 77 20 35 07/13/16 12:00 74 07/13/16 12:00 35 07/13/16 12:00 98.4 73 23 101/54 100 Mechanical Ventilator 35 07/13/16 11:05 74 19 35 Height (Feet): 5 Height (Inches): 6.00 Weight (Pounds): 156 HEENT: atraumatic Respiratory/Chest: lungs clear Cardiovascular: normal rate Abdomen: soft, non tender Laboratory Tests Test 07/14/16 03:50 White Blood Count 7.6 K/UL (4.8-10.8) # Red Blood Count 2.99 M/UL (4.70-6.10) L Hemoglobin 9.0 G/DL (14.2-18.0) L Hematocrit 27.4 % (42.0-52.0) L Mean Corpuscular Volume 91 FL (80-99) Mean Corpuscular Hemoglobin 30.1 PG (27.0-31.0) Mean Corpuscular Hemoglobin Concent 32.9 G/DL (32.0-36.0) Red Cell Distribution Width 16.9 % (11.6-14.8) H Platelet Count 83 K/UL (150-450) L Mean Platelet Volume 6.1 FL (6.5-10.1) L Neutrophils (%) (Auto) % (45.0-75.0) Lymphocytes (%) (Auto) % (20.0-45.0) Monocytes (%) (Auto) % (1.0-10.0) Eosinophils (%) (Auto) % (0.0-3.0) Basophils (%) (Auto) % (0.0-2.0) Differential Total Cells Counted 100 Neutrophils % (Manual) 82 % (45-75) H Lymphocytes % (Manual) 8 % (20-45) L Monocytes % (Manual) 8 % (1-10) Eosinophils % (Manual) 0 % (0-3) Basophils % (Manual) 1 % (0-2) Band Neutrophils 1 % (0-8) Platelet Estimate Decreased L Platelet Morphology Normal Clumped Platelets 1+ Hypochromasia 2+ Anisocytosis 1+ Spherocytes 1+ Prothrombin Time 15.9 SEC (9.30-11.50) H Prothromb Time International Ratio 1.5 (0.9-1.1) H Activated Partial Thromboplast Time 40 SEC (23-33) H Sodium Level 137 mEQ/L (135-145) Potassium Level 3.6 mEQ/L (3.4-4.9) Chloride Level 99 mEQ/L (98-107) Carbon Dioxide Level 22 mEQ/L (20-30) Anion Gap 16 (5-15) H Blood Urea Nitrogen 7 mg/dL (7-23) Creatinine < 0.2 mg/dL (0.7-1.2) L Estimat Glomerular Filtration Rate > 60 mL/min (>60) Glucose Level 115 mg/dL (74-106) H Calcium Level 8.0 mg/dL (8.6-10.2) L Total Bilirubin 1.6 mg/dL (0.0-1.2) H Direct Bilirubin 0.5 mg/dL (0.1-0.3) H Aspartate Amino Transf (AST/SGOT) 56 U/L (5-40) H Alanine Aminotransferase (ALT/SGPT) 30 U/L (3-41) Alkaline Phosphatase 260 U/L (40-129) H Total Protein 5.7 g/dL (6.6-8.7) L Albumin 2.1 g/dL (3.5-5.2) L Globulin 3.6 g/dL Albumin/Globulin Ratio 0.5 (1.0-2.7) L Current Medications Medications (Trade) Dose Ordered Sig/Hair Route PRN Reason Start Time Stop Time Status Last Admin Dose Admin Acetaminophen (Tylenol) 650 mg Q4H PRN ORAL FEVER 07/09/16 18:00 08/08/16 17:59 Albuterol/ Ipratropium (DuoNeb 0.5-3(2.5)mg/3ml) 3 ml Q4H PRN HHN Shortness of Breath 07/09/16 18:00 07/14/16 17:59 Dextrose (Dextrose 50%) STAT PRN IV Hypoglycemia 07/09/16 18:00 08/08/16 17:59 Dextrose/Sodium Chloride 1,000 ml @ 50 mls/hr Q20H IV 07/11/16 13:00 08/10/16 12:59 07/14/16 05:01 Iron Sucrose 100 mg/Sodium Chloride 60 ml @ 240 mls/hr BEDTIME IVPB 07/11/16 21:00 07/15/16 21:14 07/13/16 21:52 Lactulose (Cephulac) 20 gm QID GT 07/09/16 20:00 08/08/16 19:59 07/13/16 21:52 Levetiracetam (Keppra) 1,500 mg Q12HR GT 07/09/16 22:00 08/08/16 21:59 07/13/16 21:53 Lorazepam (Ativan 2mg/ml 1ml) 2 mg Q2H PRN IV For Anxiety 07/09/16 18:00 07/16/16 17:59 Morphine Sulfate (Morphine Sulfate) 4 mg Q4H PRN IVP Severe Pain (Pain Scale 7-10) 07/09/16 18:00 07/16/16 17:59 07/11/16 16:07 Ondansetron HCl (Zofran) 4 mg Q6H PRN IVP Nausea & Vomiting 07/09/16 18:00 08/08/16 17:59 Piperacillin Sod/ Tazobactam Sod/ Sodium Chloride (Zosyn/Sodium Chloride) 110 ml @ 220 mls/hr Q6H IVPB 07/13/16 11:00 07/20/16 10:59 07/14/16 05:00 Polyethylene Glycol 17 gm 17 gm DAILYPRN PRN GT Constipation 07/10/16 13:38 6/10/17 17:59 Propranolol HCl (Inderal) 10 mg Q12HR GT 07/09/16 21:00 08/08/16 20:59 07/13/16 21:52 Rifaximin (Xifaxan) 550 mg EVERY 12 HOURS GT 07/10/16 21:00 07/17/16 20:59 07/13/16 21:53 Vancomycin HCl 1 ea 1 ea DAILY PRN MISC PER RX PROTOCOL 07/09/16 19:30 08/08/16 19:29 Vancomycin HCl/ Sodium Chloride (Vancomycin/ Sodium Chloride) 275 ml @ 183.3 mls/ hr Q12HR@0000,1200 IVPB 07/10/16 14:30 07/15/16 14:29 07/14/16 00:18 Zinc Sulfate (Zinc Sulfate) 220 mg DAILY GT 07/10/16 09:00 08/09/16 08:59 07/13/16 08:17 SHARRI RAMÍREZ M.D. July 14, 2016 10:52
[2016-07-14] MEDS ORDERED: Meropenem 1 GM in NS 110 ML IVPB SCH (11:00)
--- NOTE | 2016-07-14 12:04 | Pulmonology Progress Note ---
Assessment/Plan Problems: (1) Bacteremia (2) Gross hematuria (3) Chronic respiratory failure (4) Anemia (5) Ventilator dependent (6) Liver cirrhosis (7) Decubitus ulcer (8) Ascites (9) Hyponatremia (10) Feeding by G-tube Assessment/Plan had upper endoscopy varices were band h/h stable s/p paracentesis, 6.2 liters removed. toleraing diet Subjective ROS Limited/Unobtainable: No Interval Events: awake, comfortable Allergies: Coded Allergies: No Known Allergies (Unverified , 06/09/16) Objective Last 24 Hour Vital Signs Date Time Temp Pulse Resp B/P Pulse Ox O2 Delivery O2 Flow Rate FiO2 07/14/16 10:53 79 26 35 07/14/16 10:45 62 120/60 07/14/16 09:23 62 20 35 07/14/16 09:20 70 15 98 07/14/16 09:17 70 15 97 07/14/16 08:32 97.7 74 21 110/58 97 Nasal Cannula 50 07/14/16 08:01 72 07/14/16 08:00 35 07/14/16 06:51 82 24 35 07/14/16 05:01 74 21 35 07/14/16 04:00 76 07/14/16 04:00 97.6 76 14 104/53 99 Nasal Cannula 07/14/16 04:00 35 07/14/16 03:25 88 19 35 07/14/16 00:36 90 22 35 07/14/16 00:02 97.0 85 14 124/75 100 Mechanical Ventilator 35 07/14/16 00:00 79 07/13/16 23:05 80 25 35 07/13/16 21:52 88 118/57 07/13/16 21:15 90 24 35 07/13/16 20:00 35 07/13/16 20:00 89 07/13/16 20:00 98.2 88 17 118/57 99 Room Air 07/13/16 19:05 93 26 35 07/13/16 17:25 74 19 35 07/13/16 16:00 99.1 86 23 112/57 99 Mechanical Ventilator 35 07/13/16 16:00 93 07/13/16 16:00 35 07/13/16 13:10 77 20 35 Intake and Output 07/13/16 07/14/16 19:00 07:00 Intake Total 1145.0 ml 970 ml Output Total 475 ml 6450 ml Balance 670.0 ml -5480 ml IV Total 1055.0 ml 820 ml Tube Feeding 90 ml 150 ml Output Urine Total 475 ml 250 ml Other 6200 ml # Bowel Movements 2 General Appearance: WD/WN HEENT: normocephalic, atraumatic Respiratory/Chest: chest wall non-tender, lungs clear Cardiovascular: normal peripheral pulses, normal rate Abdomen: normal bowel sounds, no organomegaly Neurologic/Psychiatric: sample paster II-XII grossly normal, abnormal gait Musculoskeletal: normal muscle bulk Laboratory Tests 07/14/16 03:50: White Blood Count 7.6#, Red Blood Count 2.99L, Hemoglobin 9.0L, Hematocrit 27.4L , Mean Corpuscular Volume 91, Mean Corpuscular Hemoglobin 30.1, Mean Corpuscular Hemoglobin Concent 32.9, Red Cell Distribution Width 16.9H, Platelet Count 83L, Mean Platelet Volume 6.1L, Neutrophils (%) (Auto) , Lymphocytes (%) (Auto) , Monocytes (%) (Auto) , Eosinophils (%) (Auto) , Basophils (%) (Auto) , Differential Total Cells Counted 100, Neutrophils % ( Manual) 82H, Lymphocytes % (Manual) 8L, Monocytes % (Manual) 8, Eosinophils % ( Manual) 0, Basophils % (Manual) 1, Band Neutrophils 1, Platelet Estimate DecreasedL, Platelet Morphology Normal, Clumped Platelets 1+, Hypochromasia 2+, Anisocytosis 1+, Spherocytes 1+, Prothrombin Time 15.9H, Prothromb Time International Ratio 1.5H, Activated Partial Thromboplast Time 40H, Sodium Level 137, Potassium Level 3.6, Chloride Level 99, Carbon Dioxide Level 22, Anion Gap 16H, Blood Urea Nitrogen 7, Creatinine < 0.2L, Estimat Glomerular Filtration Rate > 60, Glucose Level 115H, Calcium Level 8.0L, Total Bilirubin 1.6H, Direct Bilirubin 0.5H, Aspartate Amino Transf (AST/SGOT) 56H, Alanine Aminotransferase (ALT/SGPT) 30, Alkaline Phosphatase 260H, Total Protein 5.7L, Albumin 2.1L, Globulin 3.6, Albumin/Globulin Ratio 0.5L Current Medications Medications (Trade) Dose Ordered Sig/Hair Route PRN Reason Start Time Stop Time Status Last Admin Dose Admin Acetaminophen (Tylenol) 650 mg Q4H PRN ORAL FEVER 07/09/16 18:00 08/08/16 17:59 Albuterol/ Ipratropium (DuoNeb 0.5-3(2.5)mg/3ml) 3 ml Q4H PRN HHN Shortness of Breath 07/09/16 18:00 07/14/16 17:59 Colistimethate Sodium 150 mg 150 mg Q12HR@10,22 INH 07/14/16 22:00 07/21/16 21:59 Dextrose (Dextrose 50%) STAT PRN IV Hypoglycemia 07/09/16 18:00 08/08/16 17:59 Dextrose/Sodium Chloride (D5ns) 1,000 ml @ 50 mls/hr Q20H IV 07/11/16 13:00 08/10/16 12:59 07/14/16 05:01 Iron Sucrose 100 mg/Sodium Chloride 60 ml @ 240 mls/hr BEDTIME IVPB 07/11/16 21:00 07/15/16 21:14 07/13/16 21:52 Lactulose (Cephulac) 20 gm QID GT 07/09/16 20:00 08/08/16 19:59 07/14/16 10:44 Levetiracetam (Keppra) 1,500 mg Q12HR GT 07/09/16 22:00 08/08/16 21:59 07/14/16 10:45 Lorazepam (Ativan 2mg/ml 1ml) 2 mg Q2H PRN IV For Anxiety 07/09/16 18:00 07/16/16 17:59 Meropenem/Sodium Chloride (Merrem/Sodium Chloride) 110 ml @ 220 mls/hr Q8HR IVPB 07/14/16 14:00 07/19/16 13:59 Morphine Sulfate (Morphine Sulfate) 4 mg Q4H PRN IVP Severe Pain (Pain Scale 7-10) 07/09/16 18:00 07/16/16 17:59 07/11/16 16:07 Ondansetron HCl (Zofran) 4 mg Q6H PRN IVP Nausea & Vomiting 07/09/16 18:00 08/08/16 17:59 Polyethylene Glycol 17 gm 17 gm DAILYPRN PRN GT Constipation 07/10/16 13:38 08/08/16 17:59 Propranolol HCl (Inderal) 10 mg Q12HR GT 07/09/16 21:00 08/08/16 20:59 07/14/16 10:45 Rifaximin (Xifaxan) 550 mg EVERY 12 HOURS GT 07/10/16 21:00 07/17/16 20:59 07/14/16 10:46 Vancomycin HCl 1 ea 1 ea DAILY PRN MISC PER RX PROTOCOL 07/09/16 19:30 08/08/16 19:29 Vancomycin HCl/ Sodium Chloride (Vancomycin/ Sodium Chloride) 275 ml @ 183.3 mls/ hr Q12HR@0000,1200 IVPB 07/10/16 14:30 07/15/16 14:29 07/14/16 00:18 Zinc Sulfate (Zinc Sulfate) 220 mg DAILY GT 07/10/16 09:00 08/09/16 08:59 07/14/16 10:45 DANTE HSIEH July 14, 2016 12:04
[2016-07-14] MEDS ORDERED: MERREM1 GM IV (12:09)
[2016-07-14] MEDS ORDERED: COLISTIN150 MG HHN (12:09)
[2016-07-14] MEDS: Meropenem 1 GM in NS 110 ML IVPB SCH ×2 (14:36→22:29)
[2016-07-14] MEDS ORDERED: D5NS 1000ml IV ONE (15:58)
[2016-07-14] MEDS ORDERED: Tubing IV Secondary IV ONE (15:58)
[2016-07-14] MEDS ORDERED: Sterile Water Irrig 1000ml IRRIG ONE (15:58)
--- NOTE | 2016-07-14 17:11 | Procedure Note ---
DATE OF PROCEDURE: 07/14/2016 SURGEON: Anthony Arndt M.D. PROCEDURE: Upper endoscopy with biopsy and banding of the esophageal varices. ANESTHESIA: Per HATCHERY WORKER, Cherrie Williamson. INSTRUMENT: Olympus adult flexible upper endoscope. INDICATION: Upper gastrointestinal bleeding. REASON FOR PROCEDURE: The procedure, risks, benefits, and possible consequences, including hemorrhage, aspiration, perforation and infection, and alternative treatments, were explained to the patient/legal guardian by Dr. Anthony Arndt and the patient/legal guardian understood and accepted these risks. DESCRIPTION OF PROCEDURE: After informed consent was obtained and the patient was adequately sedated, Olympus upper endoscope was advanced from the mouth into the second portion of the duodenum and retroflexion was performed in the stomach. The patient had 4 columns of grade 3 distal esophageal varices. In the stomach, there was portal hypertensive gastropathy. G-tube was in place. Biopsy from antrum was obtained to rule out H. pylori infection. Then, the scope was removed and banding device was placed. A total of 4 bands were placed in the distal esophagus. The patient tolerated the procedure very well without any complication. SUMMARY OF FINDINGS: 1. Status post banding of esophageal varices. 2. Portal hypertensive gastropathy. 3. G-tube in place. RECOMMENDATIONS: 1. Follow laboratories. 2. Transfuse as needed. 3. The patient's heart rate is currently stabilized and may restart the patient on propranolol for the prophylaxis at this time. Continue current medication. 4. Resume tube feeding later today. Anthony Arndt M.D. DR: RAJINDER JOB#: [id number] CC:
--- NOTE | 2016-07-14 17:57 | General Progress Note ---
Assessment/Plan Assessment/Plan Assessment and plan: # Hematuria, julisa potentially cervantes catheter trauma - has resolved, and outpatient cystoscopy as per Dr. [place] # Anemia rule out GI bleed - GI service to evaluate, anemia w/u shows ACD # Thrombocytopenia potentially 2/2 sepsis, hepatitis C+ as well likely 2/2 hepatosplenomegaly # Hepatitis C+++ and splenomegaly explain above low plts # Anemia 2/2 chronic disease - have reviewed iron panel # Hyponatremia potentially 2/2 dehydration # Ventilator dependent - respiratory distress, s/p trach # Cirrhosis # Hepatosplenomegaly # Malnutrition Subjective Constitutional: Reports: no symptoms HEENT: Reports: no symptoms Cardiovascular: Reports: no symptoms Respiratory: Reports: no symptoms Gastrointestinal/Abdominal: Reports: no symptoms Genitourinary: Reports: no symptoms Neurologic/Psychiatric: Reports: no symptoms Hematologic/Lymphatic: Reports: anemia Allergies: Coded Allergies: No Known Allergies (Unverified , 06/09/16) Subjective no fevers, chills, or night sweats reported, s/p banding varices Objective Last 24 Hour Vital Signs Date Time Temp Pulse Resp B/P Pulse Ox O2 Delivery O2 Flow Rate FiO2 07/14/16 16:54 77 24 35 07/14/16 16:00 97.5 72 20 116/62 100 Mechanical Ventilator 50 07/14/16 16:00 35 07/14/16 16:00 61 07/14/16 14:59 67 20 35 07/14/16 12:48 69 24 35 07/14/16 12:00 97.5 72 20 105/57 100 Mechanical Ventilator 50 07/14/16 12:00 72 07/14/16 12:00 35 07/14/16 10:53 79 26 35 07/14/16 10:45 62 120/60 07/14/16 09:23 62 20 35 07/14/16 09:20 70 15 98 07/14/16 09:17 70 15 97 07/14/16 08:32 97.7 74 21 110/58 97 Nasal Cannula 50 07/14/16 08:01 72 07/14/16 08:00 35 07/14/16 06:51 82 24 35 07/14/16 05:01 74 21 35 07/14/16 04:00 76 07/14/16 04:00 97.6 76 14 104/53 99 Nasal Cannula 07/14/16 04:00 35 07/14/16 03:25 88 19 35 07/14/16 00:36 90 22 35 07/14/16 00:02 97.0 85 14 124/75 100 Mechanical Ventilator 35 07/14/16 00:00 79 07/13/16 23:05 80 25 35 07/13/16 21:52 88 118/57 07/13/16 21:15 90 24 35 07/13/16 20:00 35 07/13/16 20:00 89 07/13/16 20:00 98.2 88 17 118/57 99 Room Air 07/13/16 19:05 93 26 35 Intake and Output 07/13/16 07/14/16 19:00 07:00 Intake Total 1145.0 ml 970 ml Output Total 475 ml 6450 ml Balance 670.0 ml -5480 ml IV Total 1055.0 ml 820 ml Tube Feeding 90 ml 150 ml Output Urine Total 475 ml 250 ml Other 6200 ml # Bowel Movements 2 Laboratory Tests 07/14/16 03:50: White Blood Count 7.6#, Red Blood Count 2.99L, Hemoglobin 9.0L, Hematocrit 27.4L , Mean Corpuscular Volume 91, Mean Corpuscular Hemoglobin 30.1, Mean Corpuscular Hemoglobin Concent 32.9, Red Cell Distribution Width 16.9H, Platelet Count 83L, Mean Platelet Volume 6.1L, Neutrophils (%) (Auto) , Lymphocytes (%) (Auto) , Monocytes (%) (Auto) , Eosinophils (%) (Auto) , Basophils (%) (Auto) , Differential Total Cells Counted 100, Neutrophils % ( Manual) 82H, Lymphocytes % (Manual) 8L, Monocytes % (Manual) 8, Eosinophils % ( Manual) 0, Basophils % (Manual) 1, Band Neutrophils 1, Platelet Estimate DecreasedL, Platelet Morphology Normal, Clumped Platelets 1+, Hypochromasia 2+, Anisocytosis 1+, Spherocytes 1+, Prothrombin Time 15.9H, Prothromb Time International Ratio 1.5H, Activated Partial Thromboplast Time 40H, Sodium Level 137, Potassium Level 3.6, Chloride Level 99, Carbon Dioxide Level 22, Anion Gap 16H, Blood Urea Nitrogen 7, Creatinine < 0.2L, Estimat Glomerular Filtration Rate > 60, Glucose Level 115H, Calcium Level 8.0L, Total Bilirubin 1.6H, Direct Bilirubin 0.5H, Aspartate Amino Transf (AST/SGOT) 56H, Alanine Aminotransferase (ALT/SGPT) 30, Alkaline Phosphatase 260H, Total Protein 5.7L, Albumin 2.1L, Globulin 3.6, Albumin/Globulin Ratio 0.5L Height (Feet): 5 Height (Inches): 6.00 Weight (Pounds): 156 General Appearance: no apparent distress EENT: TMs normal Neck: normal alignment Cardiovascular: regular rhythm Respiratory/Chest: lungs clear Genitourinary/Rectal: heme negative stool Extremities: no calf tenderness Edema: 1+ Leg (L), 1+ Leg (R) Edema: mild edema Neurologic: alert Skin: warm/dry Art Mackenzie July 14, 2016 17:57
[2016-07-14] MEDS: Iron Sucrose 100 MG in NS 55 ML IVPB SCH (20:24)
[2016-07-14] MEDS: Colistin for inhalation INH SCH (22:00)
[2016-07-15] VITALS: BP 109/59
[2016-07-15] MEDS: Vancomycin 1 GM in NS 275 ML IVPB SCH (00:45)
[2016-07-15] MEDS: D5NS 1,000 ML IV SCH (01:29)
[2016-07-15 04:00] VITALS: BP 116/62
[2016-07-15 05:27] LABS: MEAN CORPUSCULAR HEMOGLOBIN 30.7 PG (27.0-31.0); MEAN CORPUSCULAR HGB CONC 32.5 G/DL (32.0-36.0); MEAN CORPUSCULAR VOLUME 95 FL (80-99); MEAN PLATELET VOLUME 5.8 FL (6.5-10.1); PLATELET COUNT 80 K/UL (150-450); RED BLOOD COUNT 3.02 M/UL (4.70-6.10); RED CELL DISTRIBUTION WIDTH 17.8 % (11.6-14.8); WHITE BLOOD COUNT 9.7 K/UL (4.8-10.8)
[2016-07-15] MEDS: Meropenem 1 GM in NS 110 ML IVPB SCH ×2 (05:30→14:49)
[2016-07-15 06:03] LABS: ANION GAP 13 (5-15); CALCIUM 7.9 mg/dL (8.6-10.2); CARBON DIOXIDE 22 mEQ/L (20-30); CHLORIDE 102 mEQ/L (98-107); CREATININE < 0.2 mg/dL (0.7-1.2); GLOMERULAR FILTRATION RATE > 60 mL/min (>60); HEMOLYSIS 3; MAGNESIUM 1.6 mg/dL (1.7-2.5); POTASSIUM 3.5 mEQ/L (3.4-4.9); SODIUM 137 mEQ/L (135-145)
[2016-07-15 08:00] VITALS: BP 125/53
--- NOTE | 2016-07-15 08:54 | Nephrology Progress Note ---
Assessment/Plan Assessment 1. isovolemic hyponatremia improving 2. Hypocalcemia. 3.hypomagnesemia 5.hypomagnesemia resolved Plan plan to continue ns .9 lasix iv mix all ivpb with .9 free water restriction Subjective Constitutional: Reports: no symptoms HEENT: Reports: no symptoms Genitourinary: Reports: no symptoms Neurologic/Psychiatric: Reports: no symptoms Subjective No acute over night awake and alert Objective Objective Last 24 Hour Vital Signs Date Time Temp Pulse Resp B/P Pulse Ox O2 Delivery O2 Flow Rate FiO2 07/15/16 06:59 69 9 35 07/15/16 06:29 98.1 07/15/16 06:29 98.1 07/15/16 05:25 80 17 35 07/15/16 04:00 79 07/15/16 04:00 99.3 80 18 116/62 95 Mechanical Ventilator 35 07/15/16 04:00 35 07/15/16 03:40 80 17 96 Mechanical Ventilator 35 07/15/16 03:28 83 20 95 Mechanical Ventilator 35 07/15/16 03:24 81 18 35 07/15/16 01:30 98.1 07/15/16 01:11 82 20 35 07/15/16 00:00 99.4 76 18 109/59 96 Mechanical Ventilator 35 07/15/16 00:00 77 07/15/16 00:00 35 07/14/16 23:20 99 24 35 07/14/16 21:44 97.8 07/14/16 21:00 75 21 35 07/14/16 20:24 74 126/72 07/14/16 20:00 62 07/14/16 20:00 99.1 65 24 111/61 100 Mechanical Ventilator 35 07/14/16 20:00 35 07/14/16 19:20 72 22 35 07/14/16 16:54 77 24 35 07/14/16 16:00 97.5 72 20 116/62 100 Mechanical Ventilator 50 07/14/16 16:00 35 07/14/16 16:00 61 07/14/16 14:59 67 20 35 07/14/16 12:48 69 24 35 07/14/16 12:00 97.5 72 20 105/57 100 Mechanical Ventilator 50 07/14/16 12:00 72 07/14/16 12:00 35 07/14/16 10:53 79 26 35 07/14/16 10:45 62 120/60 07/14/16 09:23 62 20 35 07/14/16 09:20 70 15 98 07/14/16 09:17 70 15 97 Intake and Output 07/14/16 07/15/16 19:00 07:00 Intake Total 1190 ml 1130 ml Output Total 250 ml 200 ml Balance 940 ml 930 ml Free Water 350 ml 200 ml IV Total 600 ml 570 ml Tube Feeding 240 ml 360 ml Output Urine Total 250 ml 200 ml # Bowel Movements 3 Laboratory Tests 07/15/16 04:10: White Blood Count 9.7, Red Blood Count 3.02L, Hemoglobin 9.3L, Hematocrit 28.6L , Mean Corpuscular Volume 95, Mean Corpuscular Hemoglobin 30.7, Mean Corpuscular Hemoglobin Concent 32.5, Red Cell Distribution Width 17.8H, Platelet Count 80L, Mean Platelet Volume 5.8L, Neutrophils (%) (Auto) , Lymphocytes (%) (Auto) , Monocytes (%) (Auto) , Eosinophils (%) (Auto) , Basophils (%) (Auto) , Neutrophils % (Manual) [Pending], Lymphocytes % (Manual) [Pending], Platelet Estimate [Pending], Platelet Morphology [Pending], Sodium Level 137, Potassium Level 3.5, Chloride Level 102, Carbon Dioxide Level 22, Anion Gap 13, Blood Urea Nitrogen 9, Creatinine < 0.2L, Estimat Glomerular Filtration Rate > 60, Glucose Level 124H, Calcium Level 7.9L, Magnesium Level 1.6L Height (Feet): 5 Height (Inches): 6.00 Weight (Pounds): 156 Objective HEENT: Head and neck, no JVP, no LAD, and no thyromegaly. Trach is in place. Extraocular movement is intact. Pupils are reactive to light and accommodation. CHEST: Lungs are clear to auscultation. CARDIAC: Regular rate and rhythm. S1 and S2. No murmur. No rub. ABDOMEN: Soft, nontender, and nondistended. EXTREMITIES: Trace edema. No clubbing. No cyanosis. ALDEN GUERRERO July 15, 2016 08:54
[2016-07-15] MEDS: Lactulose 20gm/30ml UDC GT SCH ×2 (09:26→13:00)
[2016-07-15] MEDS: Zinc Sulfate 220mg cap GT SCH (09:27)
[2016-07-15] MEDS: levETIRAcetam 500mg/5ml Liquid GT SCH (09:27)
[2016-07-15] MEDS: Propranolol 10mg tab GT SCH (09:28)
[2016-07-15] MEDS: Rifaximin 550mg tab GT SCH (09:28)
[2016-07-15] MEDS: Colistin for inhalation INH SCH (09:39)
[2016-07-15 09:43] LABS: EOSINOPHILS % (MANUAL) 2 % (0-3); LYMPHOCYTES % (MANUAL) 6 % (20-45); NEUTROPHILS % (MANUAL) 89 % (45-75); TOTAL CELLS COUNTED 100
[2016-07-15 09:46] LABS: BAND NEUTROPHILS % (MANUAL) 0 % (0-8); BASOPHILS % (MANUAL) 0 % (0-2); PLATELET ESTIMATE DECREASED; PLATELET MORPHOLOGY NORMAL
[2016-07-15 09:47] LABS: ANISOCYTOSIS 1+
[2016-07-15 09:48] LABS: HYPOCHROMASIA 1+
--- NOTE | 2016-07-15 11:02 | GI Progress Note ---
Assessment/Plan Problems: (1) Feeding by G-tube ICD Codes: Z93.1 - Gastrostomy status SNOMED: 258000401, 239931144 (2) Elevated LFTs ICD Codes: R94.5 - Abnormal results of liver function studies SNOMED: 831671343 (3) Thrombocytopenia ICD Codes: D69.6 - Thrombocytopenia, unspecified SNOMED: 918327062 (4) Hyponatremia ICD Codes: E87.1 - Hypo-osmolality and hyponatremia SNOMED: 51715834 (5) Liver cirrhosis ICD Codes: K74.60 - Unspecified cirrhosis of liver SNOMED: 21160983 (6) Ascites ICD Codes: R18.8 - Other ascites SNOMED: 340386384 (7) Anemia ICD Codes: D64.9 - Anemia, unspecified SNOMED: 739309028 (8) hep c Status: stable, unchanged Status Narrative Discussed with Dr. Arndt. Assessment/Plan abd us reviewed >> Chronic liver disease/cirrhosis. Stigmata of portal hypertension including splenomegaly, ascites, suspected portosystemic varices. Hep C positive SUMMARY OF FINDINGS: 1. Status post banding of esophageal varices. 2. Portal hypertensive gastropathy. 3. G-tube in place. RECOMMENDATIONS: monitor H&H, transfuse prn restart propranolol GTFs per dietary iron deficiency >> venofer ppi lactulose + Xifaxan fu labs fu biopsy Subjective Subjective limited Objective Last 24 Hour Vital Signs Date Time Temp Pulse Resp B/P Pulse Ox O2 Delivery O2 Flow Rate FiO2 07/15/16 09:42 74 21 100 Mechanical Ventilator 35 07/15/16 09:28 89 125/53 07/15/16 09:26 80 21 35 07/15/16 09:25 80 22 98 Mechanical Ventilator 35 07/15/16 08:00 97.5 89 19 125/53 96 Mechanical Ventilator 35 07/15/16 06:59 69 29 35 07/15/16 06:29 98.1 07/15/16 06:29 98.1 07/15/16 05:25 80 17 35 07/15/16 04:00 79 07/15/16 04:00 99.3 80 18 116/62 95 Mechanical Ventilator 35 07/15/16 04:00 35 07/15/16 03:40 80 17 96 Mechanical Ventilator 35 07/15/16 03:28 83 20 95 Mechanical Ventilator 35 07/15/16 03:24 81 18 35 07/15/16 01:30 98.1 07/15/16 01:11 82 20 35 07/15/16 00:00 99.4 76 18 109/59 96 Mechanical Ventilator 35 07/15/16 00:00 77 07/15/16 00:00 35 07/14/16 23:20 99 24 35 07/14/16 21:44 97.8 07/14/16 21:00 75 21 35 07/14/16 20:24 74 126/72 07/14/16 20:00 62 07/14/16 20:00 99.1 65 24 111/61 100 Mechanical Ventilator 35 07/14/16 20:00 35 07/14/16 19:20 72 22 35 07/14/16 16:54 77 24 35 07/14/16 16:00 97.5 72 20 116/62 100 Mechanical Ventilator 50 07/14/16 16:00 35 07/14/16 16:00 61 07/14/16 14:59 67 20 35 07/14/16 12:48 69 24 35 07/14/16 12:00 97.5 72 20 105/57 100 Mechanical Ventilator 50 07/14/16 12:00 72 07/14/16 12:00 35 Intake and Output 07/14/16 07/15/16 19:00 07:00 Intake Total 1190 ml 1130 ml Output Total 250 ml 200 ml Balance 940 ml 930 ml Free Water 350 ml 200 ml IV Total 600 ml 570 ml Tube Feeding 240 ml 360 ml Output Urine Total 250 ml 200 ml # Bowel Movements 3 Laboratory Tests Test 07/15/16 04:10 White Blood Count 9.7 K/UL (4.8-10.8) Red Blood Count 3.02 M/UL (4.70-6.10) L Hemoglobin 9.3 G/DL (14.2-18.0) L Hematocrit 28.6 % (42.0-52.0) L Mean Corpuscular Volume 95 FL (80-99) Mean Corpuscular Hemoglobin 30.7 PG (27.0-31.0) Mean Corpuscular Hemoglobin Concent 32.5 G/DL (32.0-36.0) Red Cell Distribution Width 17.8 % (11.6-14.8) H Platelet Count 80 K/UL (150-450) L Mean Platelet Volume 5.8 FL (6.5-10.1) L Neutrophils (%) (Auto) % (45.0-75.0) Lymphocytes (%) (Auto) % (20.0-45.0) Monocytes (%) (Auto) % (1.0-10.0) Eosinophils (%) (Auto) % (0.0-3.0) Basophils (%) (Auto) % (0.0-2.0) Differential Total Cells Counted 100 Neutrophils % (Manual) 89 % (45-75) H Lymphocytes % (Manual) 6 % (20-45) L Monocytes % (Manual) 3 % (1-10) Eosinophils % (Manual) 2 % (0-3) Basophils % (Manual) 0 % (0-2) Band Neutrophils 0 % (0-8) Platelet Estimate Decreased L Platelet Morphology Normal Hypochromasia 1+ Anisocytosis 1+ Sodium Level 137 mEQ/L (135-145) Potassium Level 3.5 mEQ/L (3.4-4.9) Chloride Level 102 mEQ/L (98-107) Carbon Dioxide Level 22 mEQ/L (20-30) Anion Gap 13 (5-15) Blood Urea Nitrogen 9 mg/dL (7-23) Creatinine < 0.2 mg/dL (0.7-1.2) L Estimat Glomerular Filtration Rate > 60 mL/min (>60) Glucose Level 124 mg/dL (74-106) H Calcium Level 7.9 mg/dL (8.6-10.2) L Magnesium Level 1.6 mg/dL (1.7-2.5) L Height (Feet): 5 Height (Inches): 6.00 Weight (Pounds): 156 General Appearance: no apparent distress, alert Cardiovascular: normal rate Respiratory/Chest: no respiratory distress Abdominal Exam: site - c/d/Paulette Covarrubias N.P. July 15, 2016 11:02
--- NOTE | 2016-07-15 11:42 | Pulmonology Progress Note ---
Assessment/Plan Problems: (1) Bacteremia (2) Gross hematuria (3) Chronic respiratory failure (4) Anemia (5) Ventilator dependent (6) Liver cirrhosis (7) Decubitus ulcer (8) Ascites (9) Hyponatremia (10) Feeding by G-tube Respiratory: monitor respiratory rate, adjust FIO2, CXR Cardiac: continue pressors, continue to monitor HR/BP Renal: F/U I&O, keep IV fluid Infectious Disease: check cultures Gastrointestinal: continue feedings/current rate Endocrine: monitor blood sugar, check TSH Neurologic: PRN Ativan, PRN Morphine Affect: PRN ativan Prophylaxis: Protonix Disposition: keep in ICU Notes Reviewed: cardio, renal Discussed with: nurses Subjective ROS Limited/Unobtainable: No Constitutional: Reports: no symptoms Allergies: Coded Allergies: No Known Allergies (Unverified , 06/09/16) Objective Last 24 Hour Vital Signs Date Time Temp Pulse Resp B/P Pulse Ox O2 Delivery O2 Flow Rate FiO2 07/15/16 11:11 68 25 35 07/15/16 09:42 74 21 100 Mechanical Ventilator 35 07/15/16 09:28 89 125/53 07/15/16 09:26 80 21 35 07/15/16 09:25 80 22 98 Mechanical Ventilator 35 07/15/16 08:00 97.5 89 19 125/53 96 Mechanical Ventilator 35 07/15/16 06:59 69 29 35 07/15/16 06:29 98.1 07/15/16 06:29 98.1 07/15/16 05:25 80 17 35 07/15/16 04:00 79 07/15/16 04:00 99.3 80 18 116/62 95 Mechanical Ventilator 35 07/15/16 04:00 35 07/15/16 03:40 80 17 96 Mechanical Ventilator 35 07/15/16 03:28 83 20 95 Mechanical Ventilator 35 07/15/16 03:24 81 18 35 07/15/16 01:30 98.1 07/15/16 01:11 82 20 35 07/15/16 00:00 99.4 76 18 109/59 96 Mechanical Ventilator 35 07/15/16 00:00 77 07/15/16 00:00 35 07/14/16 23:20 99 24 35 07/14/16 21:44 97.8 07/14/16 21:00 75 21 35 07/14/16 20:24 74 126/72 07/14/16 20:00 62 07/14/16 20:00 99.1 65 24 111/61 100 Mechanical Ventilator 35 07/14/16 20:00 35 07/14/16 19:20 72 22 35 07/14/16 16:54 77 24 35 07/14/16 16:00 97.5 72 20 116/62 100 Mechanical Ventilator 50 07/14/16 16:00 35 07/14/16 16:00 61 07/14/16 14:59 67 20 35 07/14/16 12:48 69 24 35 07/14/16 12:00 97.5 72 20 105/57 100 Mechanical Ventilator 50 07/14/16 12:00 72 07/14/16 12:00 35 Intake and Output 07/14/16 07/15/16 19:00 07:00 Intake Total 1190 ml 1130 ml Output Total 250 ml 200 ml Balance 940 ml 930 ml Free Water 350 ml 200 ml IV Total 600 ml 570 ml Tube Feeding 240 ml 360 ml Output Urine Total 250 ml 200 ml # Bowel Movements 3 HEENT: normocephalic, atraumatic, status post trach Respiratory/Chest: chest wall non-tender, lungs clear Cardiovascular: normal peripheral pulses, normal rate Abdomen: normal bowel sounds, no organomegaly Extremities: no clubbing Skin: no lesions Microbiology Date/Time Source Procedure Growth Status 07/14/16 03:55 Blood Blood Culture - Preliminary NO GROWTH AFTER 24 HOURS Resulted 07/14/16 03:50 Blood Blood Culture - Preliminary NO GROWTH AFTER 24 HOURS Resulted Laboratory Tests 07/15/16 04:10: White Blood Count 9.7, Red Blood Count 3.02L, Hemoglobin 9.3L, Hematocrit 28.6L , Mean Corpuscular Volume 95, Mean Corpuscular Hemoglobin 30.7, Mean Corpuscular Hemoglobin Concent 32.5, Red Cell Distribution Width 17.8H, Platelet Count 80L, Mean Platelet Volume 5.8L, Neutrophils (%) (Auto) , Lymphocytes (%) (Auto) , Monocytes (%) (Auto) , Eosinophils (%) (Auto) , Basophils (%) (Auto) , Differential Total Cells Counted 100, Neutrophils % ( Manual) 89H, Lymphocytes % (Manual) 6L, Monocytes % (Manual) 3, Eosinophils % ( Manual) 2, Basophils % (Manual) 0, Band Neutrophils 0, Platelet Estimate DecreasedL, Platelet Morphology Normal, Hypochromasia 1+, Anisocytosis 1+, Sodium Level 137, Potassium Level 3.5, Chloride Level 102, Carbon Dioxide Level 22, Anion Gap 13, Blood Urea Nitrogen 9, Creatinine < 0.2L, Estimat Glomerular Filtration Rate > 60, Glucose Level 124H, Calcium Level 7.9L, Magnesium Level 1.6L 07/15/16 11:20: Vancomycin Level Trough [Pending] Current Medications Medications (Trade) Dose Ordered Sig/Hair Route PRN Reason Start Time Stop Time Status Last Admin Dose Admin Acetaminophen (Tylenol) 650 mg Q4H PRN ORAL FEVER 07/09/16 18:00 08/08/16 17:59 07/15/16 05:30 Colistimethate Sodium 150 mg 150 mg Q12HR@10,22 INH 07/14/16 22:00 07/21/16 21:59 07/15/16 09:39 Dextrose (Dextrose 50%) STAT PRN IV Hypoglycemia 07/09/16 18:00 08/08/16 17:59 Dextrose/Sodium Chloride (D5ns) 1,000 ml @ 50 mls/hr Q20H IV 07/11/16 13:00 08/10/16 12:59 07/15/16 01:29 Iron Sucrose 100 mg/Sodium Chloride 60 ml @ 240 mls/hr BEDTIME IVPB 07/11/16 21:00 07/15/16 21:14 07/14/16 20:24 Lactulose (Cephulac) 20 gm QID GT 07/09/16 20:00 08/08/16 19:59 07/15/16 09:26 Levetiracetam (Keppra) 1,500 mg Q12HR GT 07/09/16 22:00 08/08/16 21:59 07/15/16 09:27 Lorazepam (Ativan 2mg/ml 1ml) 2 mg Q2H PRN IV For Anxiety 07/09/16 18:00 07/16/16 17:59 Magnesium Sulfate (Magnesium Sulfate 1gm/100ml) 100 ml @ 100 mls/hr ONCE ONCE IVPB 07/15/16 09:00 07/15/16 09:59 UNV Meropenem 1 gm/ Sodium Chloride 110 ml @ 220 mls/hr Q8HR IVPB 07/14/16 14:00 07/19/16 13:59 07/15/16 05:30 Morphine Sulfate (Morphine Sulfate) 4 mg Q4H PRN IVP Severe Pain (Pain Scale 7-10) 07/09/16 18:00 07/16/16 17:59 07/11/16 16:07 Ondansetron HCl (Zofran) 4 mg Q6H PRN IVP Nausea & Vomiting 07/09/16 18:00 08/08/16 17:59 Polyethylene Glycol 17 gm 17 gm DAILYPRN PRN GT Constipation 07/10/16 13:38 08/08/16 17:59 Propranolol HCl (Inderal) 10 mg Q12HR GT 07/09/16 21:00 08/08/16 20:59 07/15/16 09:28 Rifaximin (Xifaxan) 550 mg EVERY 12 HOURS GT 07/10/16 21:00 07/17/16 20:59 07/15/16 09:28 Vancomycin HCl 1 ea 1 ea DAILY PRN MISC PER RX PROTOCOL 07/09/16 19:30 08/08/16 19:29 Vancomycin HCl/ Sodium Chloride (Vancomycin/ Sodium Chloride) 275 ml @ 183.3 mls/ hr Q12HR@0000,1200 IVPB 07/10/16 14:30 07/23/16 23:59 07/15/16 00:45 Zinc Sulfate (Zinc Sulfate) 220 mg DAILY GT 07/10/16 09:00 08/09/16 08:59 07/15/16 09:27 DANTE HSIEH July 15, 2016 11:42
[2016-07-15 12:00] VITALS: BP 104/50
--- NOTE | 2016-07-15 13:51 | Diagnostic Imaging Report ---
Indications: Ascites Procedure: Informed consent obtained. Ultrasound used to localize optimal puncture site. Sterile prepping and draping over the optimum site. Local anesthesia with 1% lidocaine. Under real-time ultrasound guidance, puncture of the peritoneal space performed using paracentesis needle. Digital image was saved and archived. Stylet removed. Catheter placed to vacuum bottle suction. Fluid was aspirated. Patient tolerated procedure well, without immediate complication. Findings: Followup sonography demonstrates complete resolution of peritoneal fluid Impression: Successful ultrasound-guided paracentesis, yielding 6.2 liters of fluid
[2016-07-15] MEDS ORDERED: Vancomycin 1 GM in NS 275 ML IVPB SCH (14:30)
--- NOTE | 2016-07-15 15:43 | Diagnostic Imaging Report ---
Indication: Abdominal Pain Technique: 4.8 mCi of technetium 99 m-Choletec was injected intravenously. Planar imaging of the abdomen was then performed every 5 minutes up to 30 minutes and every 10 minutes up to one hour. Oblique views were also obtained. Findings: There is prompt uptake within the liver with good washout of radiotracer from the liver on subsequent imaging. There is excretion into the biliary ducts. Gallbladder activity is present in a timely fashion indicating patency of the cystic duct. Bowel activity is demonstrated in a timely fashion indicating patency of the common bile duct. Impression: Normal HIDA scan
[2016-07-15 16:00] VITALS: BP 110/60
[2016-07-15] MEDS ORDERED: Tubing IV Secondary IV ONE (16:24)
[2016-07-15] MEDS ORDERED: D5NS 1000ml IV ONE (16:24)
[2016-07-15] MEDS ORDERED: NS 275ml ONE (16:24)
--- NOTE | 2016-07-15 23:00 | General Progress Note ---
Assessment/Plan Assessment/Plan Assessment and plan: # Hematuria, julisa potentially cervantes catheter trauma - has resolved, and outpatient cystoscopy as per Dr. Montana # Anemia rule out GI bleed - GI service to evaluate, anemia w/u shows ACD # Thrombocytopenia potentially 2/2 sepsis, hepatitis C+ as well likely 2/2 hepatosplenomegaly # Hepatitis C+++ and splenomegaly explain above low plts # Anemia 2/2 chronic disease - have reviewed iron panel # Hyponatremia potentially 2/2 dehydration # Ventilator dependent - respiratory distress, s/p trach # Cirrhosis with HSM # Hepatosplenomegaly # Malnutrition Subjective Constitutional: Reports: no symptoms HEENT: Reports: no symptoms Cardiovascular: Reports: no symptoms Respiratory: Reports: no symptoms Gastrointestinal/Abdominal: Reports: blood in stool Genitourinary: Reports: no symptoms Neurologic/Psychiatric: Reports: no symptoms Endocrine: Reports: no symptoms Hematologic/Lymphatic: Reports: anemia Allergies: Coded Allergies: No Known Allergies (Unverified , 06/09/16) Subjective to be d/c, s/p banding varices Objective Last 24 Hour Vital Signs Date Time Temp Pulse Resp B/P Pulse Ox O2 Delivery O2 Flow Rate FiO2 07/15/16 16:00 97.5 87 20 110/60 100 Mechanical Ventilator 35 07/15/16 16:00 35 07/15/16 15:48 72 07/15/16 14:49 85 22 35 07/15/16 12:40 69 23 35 07/15/16 12:00 35 07/15/16 12:00 97.3 71 25 104/50 100 Mechanical Ventilator 35 07/15/16 11:44 65 07/15/16 11:11 68 25 35 07/15/16 09:42 74 21 100 Mechanical Ventilator 35 07/15/16 09:28 89 125/53 07/15/16 09:26 80 21 35 07/15/16 09:25 80 22 98 Mechanical Ventilator 35 07/15/16 08:00 97.5 89 19 125/53 96 Mechanical Ventilator 35 07/15/16 08:00 35 07/15/16 07:45 65 07/15/16 06:59 69 29 35 07/15/16 06:29 98.1 07/15/16 06:29 98.1 07/15/16 05:25 80 17 35 07/15/16 04:00 79 07/15/16 04:00 99.3 80 18 116/62 95 Mechanical Ventilator 35 07/15/16 04:00 35 07/15/16 03:40 80 17 96 Mechanical Ventilator 35 07/15/16 03:28 83 20 95 Mechanical Ventilator 35 07/15/16 03:24 81 18 35 07/15/16 01:30 98.1 07/15/16 01:11 82 20 35 07/15/16 00:00 99.4 76 18 109/59 96 Mechanical Ventilator 35 07/15/16 00:00 77 07/15/16 00:00 35 07/14/16 23:20 99 24 35 Intake and Output 07/14/16 07/15/16 19:00 07:00 Intake Total 1190 ml 1130 ml Output Total 250 ml 200 ml Balance 940 ml 930 ml Free Water 350 ml 200 ml IV Total 600 ml 570 ml Tube Feeding 240 ml 360 ml Output Urine Total 250 ml 200 ml # Bowel Movements 3 Laboratory Tests 07/15/16 04:10: White Blood Count 9.7, Red Blood Count 3.02L, Hemoglobin 9.3L, Hematocrit 28.6L , Mean Corpuscular Volume 95, Mean Corpuscular Hemoglobin 30.7, Mean Corpuscular Hemoglobin Concent 32.5, Red Cell Distribution Width 17.8H, Platelet Count 80L, Mean Platelet Volume 5.8L, Neutrophils (%) (Auto) , Lymphocytes (%) (Auto) , Monocytes (%) (Auto) , Eosinophils (%) (Auto) , Basophils (%) (Auto) , Differential Total Cells Counted 100, Neutrophils % ( Manual) 89H, Lymphocytes % (Manual) 6L, Monocytes % (Manual) 3, Eosinophils % ( Manual) 2, Basophils % (Manual) 0, Band Neutrophils 0, Platelet Estimate DecreasedL, Platelet Morphology Normal, Hypochromasia 1+, Anisocytosis 1+, Sodium Level 137, Potassium Level 3.5, Chloride Level 102, Carbon Dioxide Level 22, Anion Gap 13, Blood Urea Nitrogen 9, Creatinine < 0.2L, Estimat Glomerular Filtration Rate > 60, Glucose Level 124H, Calcium Level 7.9L, Magnesium Level 1.6L 07/15/16 11:20: Vancomycin Level Trough 7.6 Height (Feet): 5 Height (Inches): 6.00 Weight (Pounds): 156 General Appearance: no apparent distress EENT: pharynx normal Neck: supple Cardiovascular: normal rate, no JVD Respiratory/Chest: chest wall non-tender Abdomen: non tender Pelvis: no masses Edema: no edema noted Arm (R), 1+ Leg (L), 1+ Leg (R) Edema: mild edema Neurologic: no motor/sensory deficits Skin: normal pigmentation Art Mackenzie July 15, 2016 23:00
--- NOTE | 2016-07-16 14:43 | Discharge Summary ---
Discharge Summary Hospital Course Date of Admission July 09, 2016 at 16:29 Date of Discharge July 15, 2016 at 16:25 Admitting Diagnosis gross hematuria ДМИТРИЙ Ramirez is a 56 year old male who was admitted on July 09, 2016 at 16:29 for Gross-Hematuria Hospital Course [id number] Discharge Discharge Disposition Patient was discharged to SNF/Subacute Facility(03) Discharge Diagnoses: Kayli Hoff NP July 16, 2016 14:43
--- NOTE | 2016-07-17 04:02 | Discharge Summary 2 SIG ---
DATE OF ADMISSION: 07/09/2016 DATE OF DISCHARGE: 07/15/2016 CONSULTANTS: 1. Anthony Arndt M.D. 2. Art Mackenzie M.D. 3. Nader Mcleod M.D. 4. Anum Garvin M.D. 5. Elia [place] M.D. BRIEF HOSPITAL COURSE: The patient is a 56-year-old male with a chronic trach, vent, and percutaneous endoscopic gastrostomy, [facility] resident, presented to [facility] [place] for gross hematuria and severe anemia. The patient has a history of indwelling Colon catheter and was noted to have increased blood in the urine for the past two days. On arrival to ED, Colon catheter was replaced with a three-way Colon. Laboratories showed anemia. Hemoglobin was down to 6.7. He was started on IV hydration and was admitted for further evaluation. Urology consult was done. Scrotal examination was negative. He was continued with bladder irrigation. Dr. Mackenzie was consulted for evaluation of anemia. The patient was given two units packed RBC transfusion and anemia workup was done. Iron stores are normal. Dr. Arndt was consulted for evaluation of anemia. Abdominal ultrasound showed chronic liver disease with portal hypertension including splenomegaly, ascites, and portosystemic varices. KUB showed nonobstructive and nonspecific bowel gas pattern. He underwent ultrasound-guided thoracentesis on 07/12/2016 [address] 6[address] of the abdomen showed no definite evidence of hepatoma with liver cirrhosis and stigmata of portal hypertension. Ascites was again noted with small right pleural effusion and trace left pleural effusion. He underwent upper endoscopy with biopsy and banding of the esophageal varices. The findings showed portal hypertensive gastropathy with G-tube in place and status post banding of the esophageal varices. Biopsy showed negative H. pylori. No intestinal metaplasia or dysplasia. Dr. Garvin was consulted for evaluation of hyponatremia. The patient came in with a sodium level of 119 and was given magnesium intravenous piggyback with normal saline and with free water restriction. Potassium was repleted. On ultrasound, kidneys were unremarkable. Hospital course was complicated by bacteremia with blood cultures showing gram-positive cocci in clusters in four out of four sets. Infectious Disease consult done and was given empirically vancomycin and Zosyn. Repeat blood culture showed growth of Staphylococcus. Hematuria eventually improved. Continuous bladder irrigation was discontinued. He came in with a stage IV sacral decubitus ulcer with wound culture showing methicillin-resistant Staphylococcus aureus and Morganella. The patient also had a chest x-ray findings of patchy infiltrates bilaterally with sputum cultures showing growth of Pseudomonas and Proteus. Merrem and colistin were added. Zosyn was eventually discontinued. He came in with sacral stage IV pressure ulcer and a right buttock full-thickness DTI. Wound care was rendered. He was given IV Venofer and was continued on lactulose, Cefaxone, and propranolol. The patient's hemoglobin and hematocrit have been stable. The patient was eventually discharged to SNF. FINAL DIAGNOSES: 1. Polymicrobial bacteremia 06/02. 2. Recurrent gross hematuria with recurrent urinary tract infection. 3. Possible healthcare-associated pneumonia and ventilator-associated pneumonia. 4. Sacral stage IV decubitus ulcer present on admission. 5. Severe acute anemia requiring transfusion. 6. Chronic liver disease with cirrhosis. 7. Chronic ventilator-dependent respiratory failure, on tracheostomy and percutaneous endoscopic gastrostomy. 8. 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 9. Hyponatremia. 10. Anemia of chronic disease. 11. Hepatosplenomegaly. 12. Chronic urinary retention. 13. Esophageal varices. 14. Portal hypertensive gastropathy. Uma Breen M.D. I have been assigned to dictate discharge summary on this account and I was not involved in the patient's management. Kayli Hoff N.P. DR: SIVA JOB#: [id number] CC: [id number]
== END 2016-07-15 16:25 | DRG 950 ==
LOC: ENRESERVTM → ENRESERVDT → EDBD 15:03 → EDBEDREQ 15:39 → EMR 16:28 → 2W 16:29 → EDBEDREQ 16:35
PROC: 5A1955Z Respiratory Ventilation, Greater than 96 Consecutive Hours (ICD-10-PCS; principal; 2016-07-09)
PROC: 30233N1 Transfusion of Nonautologous Red Blood Cells into Peripheral Vein, Percutaneous Approach (ICD-10-PCS; 2016-07-09)
PROC: 0W993ZZ Drainage of Right Pleural Cavity, Percutaneous Approach (ICD-10-PCS; 2016-07-12)
PROC: 0DB68ZX Excision of Stomach, Via Natural or Artificial Opening Endoscopic, Diagnostic (ICD-10-PCS; 2016-07-14)
PROC: 06L34CZ Occlusion of Esophageal Vein with Extraluminal Device, Percutaneous Endoscopic Approach (ICD-10-PCS; 2016-07-14 08:57)
DX: J18.9 Pneumonia, unspecified organism (principal); Z99.11 Dependence on respirator [ventilator] status; L89.154 Pressure ulcer of sacral region, stage 4; J96.10 Chronic respiratory failure, unspecified whether with hypoxia or hypercapnia; J95.851 Ventilator associated pneumonia; R53.2 Functional quadriplegia; I85.00 Esophageal varices without bleeding; E46 Unspecified protein-calorie malnutrition; R78.81 Bacteremia; E86.0 Dehydration; R18.8 Other ascites; E87.1 Hypo-osmolality and hyponatremia; K76.6 Portal hypertension; N39.0 Urinary tract infection, site not specified; K74.60 Unspecified cirrhosis of liver; Z43.0 Encounter for attention to tracheostomy; Z43.1 Encounter for attention to gastrostomy; D64.9 Anemia, unspecified; K31.89 Other diseases of stomach and duodenum; D63.8 Anemia in other chronic diseases classified elsewhere; D69.6 Thrombocytopenia, unspecified; R16.2 Hepatomegaly with splenomegaly, not elsewhere classified; E83.51 Hypocalcemia; G40.909 Epilepsy, unspecified, not intractable, without status epilepticus; Z86.73 Personal history of transient ischemic attack (TIA), and cerebral infarction without residual deficits; B19.20 Unspecified viral hepatitis C without hepatic coma; R33.9 Retention of urine, unspecified; B95.62 Methicillin resistant Staphylococcus aureus infection as the cause of diseases classified elsewhere
CPT/HCPCS: 36415; 36600; 71010; 74000; 74177; 76700; 76942; 78266; 80048; 80053; 80069; 80202; 81001; 82043; 82044; 82140; 82248; 82270; 82378; 82550; 82553; 82570; 82607; 82728; 82746; 82803; 83010; 83540; 83550; 83605; 83735; 83930; 83935; 84100; 84300; 84439; 84443; 84484; 85007; 85025; 85044; 85060; 85610; 85651; 85730; 86140; 86703; 86705; 86709; 86803; 86850; 86900; 86901; 86920; 87040; 87070; 87086; 87181; 87205; 87340; 89050; 93005; 93306; 93970; 94002; 94003; 94150; 94640; 94664

== ENCOUNTER 2016-07-20 18:08 | Inpatient (IN) | payer MEDICAID ==
[~2016-07-20] VITALS: Ht 157.5 cm; Wt 80.3 kg
[~2016-07-20 18:08] MED LIST changes: +ADVIL CHIL100 MG/5 M GT; +ATIVAN1 MG ORAL; +COLISTIN150 MG HHN; +FAMOTIDINE20 MG GT; +FERROUS SULFAT325 MG GT; +FOLIC ACID1 MG GT; +LASIX20 M1 GT; +LEVETIRACE100 MG/1 M GT; +MERREM1 GM IV; +MULTIVITAMINS1 EAC8 GT; +PROMOD946 ML GT; +VANCOMYCIN1 GM/2502 IVPB
--- NOTE | 2016-07-20 18:33 | Emergency Room Report ---
History of Present Illness General Chief Complaint: Gastrointestinal Bleed Source: Patient, Medical Record, EMS Present Illness HPI Patient is a 56-year-old [id number] male brought in by EMS after increased bleeding. Patient was noted noted have increased bleeding. Patient prior history of upper GI bleeding as well as cirrhosis. Patient been sent from group home. 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 Allergies: Coded Allergies: No Known Allergies (Unverified , 06/09/16) Patient History Past Medical History: see triage record Reviewed Nursing Documentation: PMH: Agreed, PSxH: Agreed Nursing Documentation-PMH Past Medical History: No History, Except For Hx Cardiac Problems: Yes Hx Hypertension: Yes Hx COPD: Yes Hx Cancer: Yes Hx Gastrointestinal Problems: Yes Hx Neurological Problems: Yes Hx Cerebrovascular Accident: Yes - SUBDURAL HEMORRHAGE Hx Seizures: Yes Hx Dysphasia: Yes Hx Weakness: Yes Review of Systems All Other Systems: negative except mentioned in HPI Physical Exam Vital Signs Date Time Temp Pulse Resp B/P Pulse Ox O2 Delivery O2 Flow Rate FiO2 07/20/16 18:11 98.1 90 16 113/66 98 Room Air 07/20/16 18:22 40 Sp02 EP Interpretation: reviewed, normal General Appearance: normal inspection, well appearing, no apparent distress, alert, GCS 15, mild distress Head: atraumatic ENT: normal ENT inspection, hearing grossly normal, normal voice Neck: normal inspection, full range of motion, supple, no bony tend Respiratory: normal inspection, lungs clear, normal breath sounds, no respiratory distress, no retraction, no wheezing Cardiovascular #1: regular rate, rhythm, no edema Gastrointestinal: normal inspection, normal bowel sounds, non tender, soft, no guarding, no hernia Genitourinary: no CVA tenderness Musculoskeletal: normal inspection, back normal, normal range of motion Neurologic: normal inspection, alert, responsive, speech normal Psychiatric: normal inspection, judgement/insight normal, mood/affect normal Skin: normal inspection, normal color, no rash Medical Decision Making Diagnostic Impression: Primary Impression: Gastrointestinal hemorrhage Additional Impressions: Elevated LFTs Liver cirrhosis Thrombocytopenia Anemia ER Course Patient presented for vomiting blood. Differential diagnosis included was not limited to gastritis, ulcer, esophageal varices, G-tube obstruction among others.Because of complexity of patient's case laboratory testing and imaging studies were ordered. The patient did be vent dependent started on mechanical ventilation.The laboratory testing was notable for markedly anemia. Patient was type and crossed for [address] Breen was contacted for inpatient management due to complexity of medical condition. Labs Test 07/20/16 20:00 White Blood Count 6.9 K/UL (4.8-10.8) Red Blood Count 1.85 M/UL (4.70-6.10) Hemoglobin 6.0 G/DL (14.2-18.0) Hematocrit 18.1 % (42.0-52.0) Mean Corpuscular Volume 98 FL (80-99) Mean Corpuscular Hemoglobin 32.2 PG (27.0-31.0) Mean Corpuscular Hemoglobin Concent 33.0 G/DL (32.0-36.0) Red Cell Distribution Width 19.8 % (11.6-14.8) Platelet Count 130 K/UL (150-450) Mean Platelet Volume 5.0 FL (6.5-10.1) Neutrophils (%) (Auto) % (45.0-75.0) Lymphocytes (%) (Auto) % (20.0-45.0) Monocytes (%) (Auto) % (1.0-10.0) Eosinophils (%) (Auto) % (0.0-3.0) Basophils (%) (Auto) % (0.0-2.0) Differential Total Cells Counted 100 Neutrophils % (Manual) 86 % (45-75) Lymphocytes % (Manual) 8 % (20-45) Monocytes % (Manual) 3 % (1-10) Eosinophils % (Manual) 2 % (0-3) Basophils % (Manual) 1 % (0-2) Band Neutrophils 0 % (0-8) Platelet Estimate Decreased Platelet Morphology Normal Polychromasia 1+ Hypochromasia 2+ Anisocytosis 2+ Prothrombin Time 14.7 SEC (9.30-11.50) Prothromb Time International Ratio 1.4 (0.9-1.1) Activated Partial Thromboplast Time 35 SEC (23-33) Sodium Level 139 mEQ/L (135-145) Potassium Level 3.7 mEQ/L (3.4-4.9) Chloride Level 101 mEQ/L (98-107) Carbon Dioxide Level 23 mEQ/L (20-30) Anion Gap 15 (5-15) Blood Urea Nitrogen 35 mg/dL (7-23) Creatinine 0.3 mg/dL (0.7-1.2) Estimat Glomerular Filtration Rate > 60 mL/min (>60) Glucose Level 109 mg/dL (74-106) Calcium Level 8.5 mg/dL (8.6-10.2) Total Bilirubin 1.2 mg/dL (0.0-1.2) Direct Bilirubin 0.5 mg/dL (0.1-0.3) Aspartate Amino Transf (AST/SGOT) 95 U/L (5-40) Alanine Aminotransferase (ALT/SGPT) 48 U/L (3-41) Alkaline Phosphatase 334 U/L (40-129) Total Protein 6.5 g/dL (6.6-8.7) Albumin 2.3 g/dL (3.5-5.2) Globulin 4.2 g/dL Albumin/Globulin Ratio 0.5 (1.0-2.7) EKG Diagnostic Results Rate: normal - 84 Rhythm: NSR ST Segments: no acute changes Chest X-Ray Diagnostic Results EP Interpretation: Yes Findings: no effusion, no pneumothorax, no acute cardiopulmonary disease, other - elevated right hemidiaphragm Number of Views: 1 Last Vital Signs Date Time Temp Pulse Resp B/P Pulse Ox O2 Delivery O2 Flow Rate FiO2 07/20/16 18:22 82 24 40 07/20/16 18:11 98.1 113/66 98 Room Air Status: unchanged Disposition: ADMITTED INPATIENT Condition: Critical Joel Mayen July 20, 2016 18:33
[2016-07-20] MEDS ORDERED: MILK OF MA400 MG/51 GT (18:58)
[2016-07-20] MEDS ORDERED: NAPROXEN SODIU220 M1 GT (19:03)
[2016-07-20] MEDS ORDERED: LORAZEPAM1 MG GT (19:05)
[2016-07-20] MEDS ORDERED: FERROUS SU300 MG/5 M GT (19:08)
[2016-07-20 20:20] LABS: MEAN CORPUSCULAR HEMOGLOBIN 32.2 PG (27.0-31.0); MEAN CORPUSCULAR VOLUME 98 FL (80-99); PLATELET COUNT 130 K/UL (150-450); RED BLOOD COUNT 1.85 M/UL (4.70-6.10); RED CELL DISTRIBUTION WIDTH 19.8 % (11.6-14.8); WHITE BLOOD COUNT 6.9 K/UL (4.8-10.8)
[2016-07-20 20:41] LABS: ALANINE AMINOTRANSFERASE 48 U/L (3-41); ALBUMIN/GLOBULIN RATIO 0.5 (1.0-2.7); ANION GAP 15 (5-15); ASPARTATE AMINO TRANSFERASE 95 U/L (5-40); CALCIUM 8.5 mg/dL (8.6-10.2); CARBON DIOXIDE 23 mEQ/L (20-30); CHLORIDE 101 mEQ/L (98-107); CREATININE 0.3 mg/dL (0.7-1.2); GLOMERULAR FILTRATION RATE > 60 mL/min (>60); HEMOLYSIS 1; POTASSIUM 3.7 mEQ/L (3.4-4.9); SODIUM 139 mEQ/L (135-145); TOTAL PROTEIN 6.5 g/dL (6.6-8.7)
[2016-07-20 20:51] LABS: INR 1.4 (0.9-1.1); PROTHROMBIN TIME 14.7 SEC (9.30-11.50)
[2016-07-20 21:20] LABS: BILIRUBIN,DIRECT 0.5 mg/dL (0.1-0.3)
[2016-07-20 21:33] LABS: BASOPHILS % (MANUAL) 1 % (0-2); EOSINOPHILS % (MANUAL) 2 % (0-3); LYMPHOCYTES % (MANUAL) 8 % (20-45); NEUTROPHILS % (MANUAL) 86 % (45-75); TOTAL CELLS COUNTED 100
[2016-07-20 21:34] LABS: ANISOCYTOSIS 2+; BAND NEUTROPHILS % (MANUAL) 0 % (0-8); HYPOCHROMASIA 2+; PLATELET ESTIMATE DECREASED; PLATELET MORPHOLOGY NORMAL; POLYCHROMASIA 1+
[2016-07-20] MEDS ORDERED: Pantoprazole Inj IVP ONE (21:45)
[2016-07-20 22:21] VITALS: BP 120/56
[2016-07-20] MEDS ORDERED: LORazepam 1mg tab GT PRN (22:30)
[2016-07-20] MEDS ORDERED: Nitroglycerin Subl 0.4mg tab (Bottle Of 25) SL PRN (22:30)
[2016-07-20] MEDS ORDERED: Mylanta II UD 30ml ORAL PRN (22:30)
[2016-07-20 22:36] VITALS: BP 113/52
--- NOTE | 2016-07-20 22:39 | History and Physical ---
History of Present Illness General Date patient seen: July 20, 2016 Reason for Hospitalization: Gastrointestinal Bleed Present Illness HPI 56-year-old [id number] male with hx of chronic trach/Peg/ Vent cirrhosis, recurrent GI bleeding and ascites brought in by EMS after an episode of rectal bleeding. Pt was found to be anemic and admitted to [facility] for further evaluation. Allergies: Coded Allergies: No Known Allergies (Unverified , 06/09/16) Medication History Scheduled Ascorbic Acid* (Vitamin C*), 500 MG GT DAILY, (Reported) Colistimethate Sodium (Colistin), 150 MG HHN BID Cran/Vitc/Mannose/Inulin/Brom (Uti-Stat Liquid), 3,875 MG GT DAILY, (Reported) Famotidine (Famotidine), 20 MG GT DAILY, (Reported) Ferrous Sulfate (Ferrous Sulfate), 7.5 ML GT DAILY, (Reported) Folic Acid* (Folic Acid*), 1 MG GT DAILY, (Reported) Furosemide* (Lasix*), 20 MG GT DAILY, (Reported) Lactulose (Lactulose*), 30 ML GT QID, (Reported) Levetiracetam* (Levetiracetam*), 1,500 MG GT Q12HR, (Reported) Meropenem (Merrem), 1 GM IV Q8HR Multivitamin With Minerals (Multivitamins With Minerals*), 1 TAB GT DAILY, ( Reported) Propranolol Hcl* (Inderal*), 10 MG GT BID, (Reported) Vancomycin Hcl/D5w (Vancomycin-D5w 1 G/250 Ml), 1 GM IVPB Q24H Zinc Sulfate (Zinc Sulfate*), 220 MG GT DAILY, (Reported) Scheduled PRN Acetaminophen 160MG/5ML* (Acetaminophen*), 20 ML ORAL EVERY 4 HOURS PRN for For Pain, (Reported) Bisacodyl (Dulcolax), 10 MG RC DAILY PRN for Constipation, (Reported) Lorazepam* (Lorazepam*), 1 MG GT Q6HR PRN for For Anxiety, (Reported) Magnesium Hydroxide* (Milk Of Magnesia*), 30 ML GT QHS PRN for Constipation, ( Reported) Na Phos,M-B/Na Phos,Di-Ba* (Fleet Enema*), 133 ML RECTAL EVERY TWO DAYS PRN for Constipation, (Reported) Naproxen Sodium (Naproxen Sodium), 220 MG GT PRN PRN for For Pain, (Reported) Discontinued Medications Ferrous Sulfate* (Ferrous Sulfate*), 325 MG GT DAILY, (Reported) Discontinued Reason: Medication dose changed Ibuprofen (Advil Children's), 200 MG GT Q6H PRN for For Pain, (Reported) Discontinued Reason: Medication dose changed Patient History Healthcare decision maker Resuscitation status Advanced Directive on File Past Medical/Surgical History Past Medical/Surgical History: (1) Gastrointestinal hemorrhage (2) Liver cirrhosis (3) Feeding by G-tube (4) Chronic respiratory failure (5) Ascites (6) Decubitus ulcer Review of Systems All Other Systems: negative except mentioned in HPI Physical Exam General Appearance: WD/WN, cachetic Lines, tubes and drains: peripheral HEENT: normocephalic, anicteric Neck: non-tender, normal alignment Respiratory/Chest: chest wall non-tender, lungs clear Breasts: no masses Cardiovascular/Chest: normal peripheral pulses Abdomen: normal bowel sounds, non tender Genitourinary/Rectal: normal genital exam, normal rectal exam Extremities: normal range of motion, normal inspection Skin Exam: normal pigmentation 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 Last 24 Hour Vital Signs Date Time Temp Pulse Resp B/P Pulse Ox O2 Delivery O2 Flow Rate FiO2 07/20/16 22:21 98.8 97 20 120/56 100 Mechanical Ventilator 40 07/20/16 22:21 98.8 97 20 07/20/16 21:00 84 20 40 07/20/16 19:32 92 23 100 Mechanical Ventilator 60 07/20/16 19:30 40 07/20/16 18:22 82 24 40 07/20/16 18:11 98.1 90 16 113/66 98 Room Air Laboratory Tests Test 07/20/16 20:00 White Blood Count 6.9 K/UL (4.8-10.8) Red Blood Count 1.85 M/UL (4.70-6.10) L Hemoglobin 6.0 G/DL (14.2-18.0) *L Hematocrit 18.1 % (42.0-52.0) L Mean Corpuscular Volume 98 FL (80-99) Mean Corpuscular Hemoglobin 32.2 PG (27.0-31.0) H Mean Corpuscular Hemoglobin Concent 33.0 G/DL (32.0-36.0) Red Cell Distribution Width 19.8 % (11.6-14.8) H Platelet Count 130 K/UL (150-450) L Mean Platelet Volume 5.0 FL (6.5-10.1) L Neutrophils (%) (Auto) % (45.0-75.0) Lymphocytes (%) (Auto) % (20.0-45.0) Monocytes (%) (Auto) % (1.0-10.0) Eosinophils (%) (Auto) % (0.0-3.0) Basophils (%) (Auto) % (0.0-2.0) Differential Total Cells Counted 100 Neutrophils % (Manual) 86 % (45-75) H Lymphocytes % (Manual) 8 % (20-45) L Monocytes % (Manual) 3 % (1-10) Eosinophils % (Manual) 2 % (0-3) Basophils % (Manual) 1 % (0-2) Band Neutrophils 0 % (0-8) Platelet Estimate Decreased L Platelet Morphology Normal Polychromasia 1+ Hypochromasia 2+ Anisocytosis 2+ Prothrombin Time 14.7 SEC (9.30-11.50) H Prothromb Time International Ratio 1.4 (0.9-1.1) H Activated Partial Thromboplast Time 35 SEC (23-33) H Sodium Level 139 mEQ/L (135-145) Potassium Level 3.7 mEQ/L (3.4-4.9) Chloride Level 101 mEQ/L (98-107) Carbon Dioxide Level 23 mEQ/L (20-30) Anion Gap 15 (5-15) Blood Urea Nitrogen 35 mg/dL (7-23) H Creatinine 0.3 mg/dL (0.7-1.2) L Estimat Glomerular Filtration Rate > 60 mL/min (>60) Glucose Level 109 mg/dL (74-106) H Calcium Level 8.5 mg/dL (8.6-10.2) L Total Bilirubin 1.2 mg/dL (0.0-1.2) Direct Bilirubin 0.5 mg/dL (0.1-0.3) H Aspartate Amino Transf (AST/SGOT) 95 U/L (5-40) H Alanine Aminotransferase (ALT/SGPT) 48 U/L (3-41) H Alkaline Phosphatase 334 U/L (40-129) H Total Protein 6.5 g/dL (6.6-8.7) L Albumin 2.3 g/dL (3.5-5.2) L Globulin 4.2 g/dL Albumin/Globulin Ratio 0.5 (1.0-2.7) L Height (Feet): 5 Height (Inches): 3.00 Weight (Pounds): 130 Medications Current Medications Medications (Trade) Dose Ordered Sig/Hair Route PRN Reason Start Time Stop Time Status Last Admin Dose Admin Acetaminophen (Tylenol) 650 mg Q4H PRN ORAL fever 07/20/16 22:30 08/19/16 22:29 UNV Al Hydroxide/Mg Hydroxide (Mylanta II) 30 ml Q6H PRN ORAL dyspepsia 07/20/16 22:30 08/19/16 22:29 UNV Albuterol/ Ipratropium (DuoNeb 0.5-3(2.5)mg/3ml) 3 ml EVERY 8 HOURS HHN 07/21/16 06:00 07/26/16 05:59 UNV Dextrose (Dextrose 50%) STAT PRN IV Hypoglycemia 07/20/16 22:30 08/19/16 22:29 UNV Dextrose/Sodium Chloride (D5 0.45% NS) 1,000 ml @ 75 mls/hr [id number] IV 07/20/16 17:40 08/19/16 17:39 UNV Diphenhydramine HCl (Benadryl) 25 mg Q6H PRN ORAL Itching/Pruritis 07/20/16 22:30 08/19/16 22:29 UNV Lactulose (Cephulac) 20 gm QID GT 07/21/16 09:00 08/20/16 08:59 UNV Levetiracetam (Keppra) 1,500 mg Q12HR GT 07/21/16 09:00 08/20/16 08:59 UNV Lorazepam (Ativan) 1 mg Q6HR PRN GT For Anxiety 07/20/16 22:30 07/27/16 22:29 UNV Morphine Sulfate (Morphine Sulfate) 2 mg EVERY 4 HOURS PRN IVP severe Pain (Pain Scale 7-10) 07/20/16 22:30 07/27/16 22:29 UNV Nitroglycerin (Ntg) 0.4 mg Q5M X 3 DOSES PRN SL Prn Chest Pain 07/20/16 22:30 08/19/16 22:29 UNV Ondansetron HCl (Zofran) 4 mg Q6H PRN IVP Nausea & Vomiting 07/20/16 22:30 08/19/16 22:29 UNV Polyethylene Glycol (Miralax) 17 gm HSPRN PRN ORAL Constipation 07/20/16 22:30 08/19/16 22:29 UNV Propranolol HCl 10 mg 10 mg BID GT 07/21/16 09:00 08/20/16 08:59 UNV Assessment/Plan Problem List: (1) Gastrointestinal hemorrhage ICD Codes: K92.2 - Gastrointestinal hemorrhage, unspecified SNOMED: 07493898 (2) Chronic respiratory failure ICD Codes: J96.10 - Chronic respiratory failure, unspecified whether with hypoxia or hypercapnia SNOMED: 60607056 (3) Liver cirrhosis ICD Codes: K74.60 - Unspecified cirrhosis of liver SNOMED: 47175626 (4) Feeding by G-tube ICD Codes: Z93.1 - Gastrostomy status SNOMED: 504209967, 341133078 (5) Ascites ICD Codes: R18.8 - Other ascites SNOMED: 369925537 Assessment/Plan NPO IV fluids GI evaluation correct coagulopathy prbc prn DANTE HSIEH July 20, 2016 22:39
[2016-07-21] VITALS (7 sets, daily range): BP systolic 106–128; BP diastolic 56–109
[2016-07-21] MEDS: D5 1/2NS 1,000 ML IV SCH ×2 (02:04→12:36)
[2016-07-21] MEDS: Lactulose 20gm/30ml UDC GT SCH ×4 (09:00→21:12)
[2016-07-21] MEDS: Propranolol 10mg tab GT SCH ×2 (09:00→21:13)
--- NOTE | 2016-07-21 10:35 | Pulmonology Progress Note ---
Assessment/Plan Problems: (1) Gastrointestinal hemorrhage (2) Chronic respiratory failure (3) Liver cirrhosis (4) Feeding by G-tube (5) Ascites Assessment/Plan NPo IV fluids check h/h might need endoscopy [place] culture check electrolytes. Subjective ROS Limited/Unobtainable: No Interval Events: comfortable Allergies: Coded Allergies: No Known Allergies (Unverified , 06/09/16) Objective Last 24 Hour Vital Signs Date Time Temp Pulse Resp B/P Pulse Ox O2 Delivery O2 Flow Rate FiO2 07/21/16 08:41 72 20 40 07/21/16 08:00 40 07/21/16 08:00 98.5 83 21 108/66 100 Mechanical Ventilator 40 07/21/16 07:56 68 07/21/16 07:05 69 20 40 07/21/16 05:48 92 17 40 07/21/16 04:00 40 07/21/16 04:00 78 07/21/16 04:00 97.8 74 22 109/60 100 Mechanical Ventilator 40 07/21/16 03:19 77 17 40 07/21/16 01:28 88 25 40 07/21/16 00:33 89 07/21/16 00:30 98.7 89 22 107/56 100 Mechanical Ventilator 40 07/21/16 00:30 40 07/21/16 00:15 98.7 89 22 107/56 100 Mechanical Ventilator 40 07/20/16 23:04 101 27 40 07/20/16 22:36 98.9 91 21 113/52 100 Mechanical Ventilator 40 07/20/16 22:21 98.8 97 20 120/56 100 Mechanical Ventilator 40 07/20/16 22:21 98.8 97 20 07/20/16 21:00 84 20 40 07/20/16 19:32 92 23 100 Mechanical Ventilator 60 07/20/16 19:30 40 07/20/16 18:22 82 24 40 07/20/16 18:11 98.1 90 16 113/66 98 Room Air Intake and Output 07/20/16 07/21/16 19:00 07:00 Intake Total 375 ml Output Total 600 ml Balance -225 ml Intake IV Total 375 ml Output Urine Total 600 ml # Bowel Movements 1 General Appearance: cachetic HEENT: normocephalic, atraumatic Respiratory/Chest: chest wall non-tender, normal breath sounds Cardiovascular: normal peripheral pulses, normal rate Abdomen: normal bowel sounds, soft, non tender Extremities: no cyanosis Neurologic/Psychiatric: 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 normal Laboratory Tests 07/20/16 20:00: White Blood Count 6.9, Red Blood Count 1.85L, Hemoglobin 6.0*L, Hematocrit 18.1L , Mean Corpuscular Volume 98, Mean Corpuscular Hemoglobin 32.2H, Mean Corpuscular Hemoglobin Concent 33.0, Red Cell Distribution Width 19.8H, Platelet Count 130L, Mean Platelet Volume 5.0L, Neutrophils (%) (Auto) , Lymphocytes (%) (Auto) , Monocytes (%) (Auto) , Eosinophils (%) (Auto) , Basophils (%) (Auto) , Differential Total Cells Counted 100, Neutrophils % ( Manual) 86H, Lymphocytes % (Manual) 8L, Monocytes % (Manual) 3, Eosinophils % ( Manual) 2, Basophils % (Manual) 1, Band Neutrophils 0, Platelet Estimate DecreasedL, Platelet Morphology Normal, Polychromasia 1+, Hypochromasia 2+, Anisocytosis 2+, Prothrombin Time 14.7H, Prothromb Time International Ratio 1.4H , Activated Partial Thromboplast Time 35H, Sodium Level 139, Potassium Level 3.7 , Chloride Level 101, Carbon Dioxide Level 23, Anion Gap 15, Blood Urea Nitrogen 35H, Creatinine 0.3L, Estimat Glomerular Filtration Rate > 60, Glucose Level 109H, Calcium Level 8.5L, Total Bilirubin 1.2, Direct Bilirubin 0.5H, Aspartate Amino Transf (AST/SGOT) 95H, Alanine Aminotransferase (ALT/SGPT) 48H, Alkaline Phosphatase 334H, Total Protein 6.5L, Albumin 2.3L, Globulin 4.2, Albumin/Globulin Ratio 0.5L 07/21/16 10:10: White Blood Count [Pending], Red Blood Count [Pending], Hemoglobin [Pending], Hematocrit [Pending], Mean Corpuscular Volume [Pending], Mean Corpuscular Hemoglobin [Pending], Mean Corpuscular Hemoglobin Concent [Pending], Red Cell Distribution Width [Pending], Platelet Count [Pending], Mean Platelet Volume [ Pending], Neutrophils (%) (Auto) [Pending], Lymphocytes (%) (Auto) [Pending], Monocytes (%) (Auto) [Pending], Eosinophils (%) (Auto) [Pending], Basophils (%) (Auto) [Pending], Prothrombin Time [Pending], Prothromb Time International Ratio [Pending], Activated Partial Thromboplast Time [Pending], Sodium Level [ Pending], Potassium Level [Pending], Chloride Level [Pending], Carbon Dioxide Level [Pending], Blood Urea Nitrogen [Pending], Creatinine [Pending], Estimat Glomerular Filtration Rate [Pending], Glucose Level [Pending], Calcium Level [ Pending], Total Bilirubin [Pending], Aspartate Amino Transf (AST/SGOT) [Pending] , Alanine Aminotransferase (ALT/SGPT) [Pending], Alkaline Phosphatase [Pending] , Total Protein [Pending], Albumin [Pending], Globulin [Pending] Current Medications Medications (Trade) Dose Ordered Sig/Hair Route PRN Reason Start Time Stop Time Status Last Admin Dose Admin Acetaminophen (Tylenol) 650 mg Q4H PRN ORAL fever 07/20/16 22:30 08/19/16 22:29 Al Hydroxide/Mg Hydroxide (Mylanta II) 30 ml Q6H PRN ORAL dyspepsia 07/20/16 22:30 08/19/16 22:29 Albuterol/ Ipratropium 3 ml 3 ml Q8HRT HHN 07/21/16 07:00 07/26/16 06:59 Dextrose (Dextrose 50%) STAT PRN IV Hypoglycemia 07/20/16 22:30 08/19/16 22:29 Dextrose/Sodium Chloride (D5 0.45% NS) 1,000 ml @ 75 mls/hr [id number] IV 07/20/16 23:30 08/19/16 23:29 07/21/16 02:04 Diphenhydramine HCl (Benadryl) 25 mg Q6H PRN ORAL Itching/Pruritis 07/20/16 22:30 08/19/16 22:29 Lactulose (Cephulac) 20 gm QID GT 07/21/16 09:00 08/20/16 08:59 Levetiracetam (Keppra) 1,500 mg Q12HR GT 07/21/16 09:00 08/20/16 08:59 Lorazepam (Ativan) 1 mg Q6H PRN GT For Anxiety 07/20/16 22:30 07/27/16 22:29 Morphine Sulfate (Morphine Sulfate) 2 mg Q4H PRN IVP severe Pain (Pain Scale 7-10) 07/20/16 22:30 07/27/16 22:29 Nitroglycerin (Ntg) 0.4 mg Q5M X 3 DOSES PRN SL Prn Chest Pain 07/20/16 22:30 08/19/16 22:29 Octreotide Acetate 500 mcg/ Sodium Chloride 500 ml @ 50 mls/hr Q10H IV 07/21/16 11:00 08/20/16 10:59 Ondansetron HCl (Zofran) 4 mg Q6H PRN IVP Nausea & Vomiting 07/20/16 22:30 08/19/16 22:29 Pantoprazole/ Sodium Chloride (Protonix/Sodium Chloride) 250 ml @ 25 mls/hr Q10H IV 07/21/16 11:00 08/20/16 10:59 Polyethylene Glycol (Miralax) 17 gm HSPRN PRN ORAL Constipation 07/20/16 22:30 08/19/16 22:29 UNV Propranolol HCl 10 mg 10 mg BID@0900,2100 GT 07/21/16 09:00 08/20/16 08:59 DANTE HSIEH July 21, 2016 10:35
[2016-07-21 10:36] LABS: BASOPHILS % (AUTO) 0.6 % (0.0-2.0); EOSINOPHILS % (AUTO) 5.4 % (0.0-3.0); LYMPHOCYTES % (AUTO) 12.2 % (20.0-45.0); MEAN CORPUSCULAR HGB CONC 33.4 G/DL (32.0-36.0); MEAN CORPUSCULAR VOLUME 90 FL (80-99); MEAN PLATELET VOLUME 5.3 FL (6.5-10.1); NEUTROPHILS % (AUTO) 72.8 % (45.0-75.0); PLATELET COUNT 123 K/UL (150-450); RED BLOOD COUNT 3.32 M/UL (4.70-6.10); RED CELL DISTRIBUTION WIDTH 17.3 % (11.6-14.8); WHITE BLOOD COUNT 6.1 K/UL (4.8-10.8)
[2016-07-21 10:52] LABS: INR 1.4 (0.9-1.1); PROTHROMBIN TIME 14.7 SEC (9.30-11.50)
--- NOTE | 2016-07-21 10:56 | Consultation ---
Consult Note Assessment/Plan ID Dic # [id number] ASSESSMENT: 56 y/o male with: // Hx of Polymicrobial ( MRSA, M.morganii ,PSA ) bacteremia 4/ , repeat BCx :neg , SP Rx - TTE(-) SBE // Hx of Recurrent gross hematuria and recurrent UTI - c // Recent HCAP / VAP - SCx PSA and Pr. 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, osteomyelitis - WCx MRSA, M.morganii // HCV Ab+ // Negative HIV // Elev Alk Ph: - HIDA scan :neg 07/15 // Afebrile without leukocytosis // Elevated ESR, CRP // GI bleed , // Chronic liver disease / cirrhosis with elevated LFTs, US : GB wall thickening ( probably 2nd to ascites ) CT: Liver cirrhosis with stigmata of portal hypertension // Chronic VDRF SP trach, PEG // h/o CVA // [facility] resident // MDRO colonized // NKDA // Full Code PLAN: - continue IV Merrem and Colistin INH d# - f/u cultures ( Bl, Ur, Sp ) - monitor CBC, temperatures - monitor BMP - monitor CXR - vent support, trach care, aspiration precaution - wound care SHARRI RAMÍREZ M.D. July 21, 2016 10:55
[2016-07-21 11:01] LABS: ALANINE AMINOTRANSFERASE 38 U/L (3-41); ALBUMIN/GLOBULIN RATIO 0.4 (1.0-2.7); ANION GAP 15 (5-15); ASPARTATE AMINO TRANSFERASE 63 U/L (5-40); CALCIUM 8.2 mg/dL (8.6-10.2); CARBON DIOXIDE 22 mEQ/L (20-30); CHLORIDE 105 mEQ/L (98-107); CREATININE 0.3 mg/dL (0.7-1.2); GLOMERULAR FILTRATION RATE > 60 mL/min (>60); HEMOLYSIS 3; SODIUM 142 mEQ/L (135-145); TOTAL PROTEIN 6.4 g/dL (6.6-8.7)
[2016-07-21] MEDS: Pantoprazole 80 MG in NS 250 ML IV SCH ×2 (11:07→21:12)
[2016-07-21] MEDS: Octreotide Acetate 500 MCG in Sodium Chloride 499 ML IV SCH ×2 (11:08→21:12)
[2016-07-21 11:15] LABS: BILIRUBIN,DIRECT 0.6 mg/dL (0.1-0.3)
--- NOTE | 2016-07-21 12:04 | Pre-Procedure Note/Attestation ---
Pre-Procedure Note/Attestation Complete Prior to Procedure Planned Procedure: not applicable Procedure Narrative: egd Indications for Procedure Pre-Operative Diagnosis: gib Attestation I attest that I discussed the nature of the procedure; its benefits; risks and complications; and alternatives (and the risks and benefits of such alternatives ), prior to the procedure, with the patient (or the patient's legal patient care representative). I attest that, if there was a reasonable possibility of needing a blood transfusion, the patient (or the patient's legal patient care representative) was given the [facility] standardized written summary, pursuant to the [place] Blood Safety Act ([place] Health and Safety Code # 1645, as amended). I attest that I re-evaluated the patient just prior to the surgery and that there has been no change in the patient's H&P, except as documented below: BRIA VELASQUEZ July 21, 2016 12:04
--- NOTE | 2016-07-21 13:22 | GI Initial Consult Note ---
History of Present Illness General Date patient seen: July 21, 2016 Time patient seen: 13:12 Reason for Hospitalization: Gastrointestinal Bleed Referring physician: DANTE HSIEH Reason for Consultation: GI BLEED Present Illness HPI Patient is a 56-year-old [id number] male brought in by EMS after increased bleeding. Patient was noted noted have increased bleeding. Patient prior history of upper GI bleeding as well as cirrhosis. Patient been sent from senior living. 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 GI CONSULT: HPI as noted above. GI consulted for UGIB. Pt recently admitted to [facility] last week s/p EGD with esophageal varicies banding x 4, see full report below. Pt presents today with anemia due to acute blood loss Hgb 6.0 pending blood transfusion, abnormal LFTs and hypoalbuminemia. DATE OF PROCEDURE: 07/14/2016 SURGEON: Anthony Arndt M.D. PROCEDURE: Upper endoscopy with biopsy and banding of the esophageal varices. SUMMARY OF FINDINGS: 1. Status post banding of esophageal varices. 2. Portal hypertensive gastropathy. 3. G-tube in place. Home Meds Active Scripts Colistimethate Sodium (Colistin) 150 Mg Vial, 150 MG HHN BID for 14 Days, VIAL Prov:SHARRI RAMÍREZ M.D. 07/14/16 Meropenem (Merrem) 1 Gm Vial, 1 GM IV Q8HR for 14 Days, VIAL Prov:SHARRI RAMÍREZ M.D. 07/14/16 Vancomycin Hcl/D5w (VANCOMYCIN-D5W 1 G/250 ML) 1 Gm/250 Ml Plast..bag, 1 GM IVPB Q24H for 10 Days, BAG Prov:DANTE HSIEH 07/13/16 Reported Medications Ferrous Sulfate (Ferrous Sulfate) 300 Mg/5 Ml Liquid, 7.5 ML GT DAILY 07/20/16 Lorazepam* (LORAZEPAM*) 1 Mg Tablet, 1 MG GT Q6HR Y for For Anxiety 07/20/16 Naproxen Sodium (NAPROXEN SODIUM) 220 Mg Tablet, 220 MG GT PRN Y for For Pain 07/20/16 Magnesium Hydroxide* (MILK OF MAGNESIA*) 400 Mg/5 Ml Oral.susp, 30 ML GT QHS Y for Constipation 07/20/16 Levetiracetam* (LEVETIRACETAM*) 100 Mg/1 Ml Solution, 1500 MG GT Q12HR 07/09/16 Multivitamin With Minerals (MULTIVITAMINS WITH MINERALS*) 1 Each Tablet, 1 TAB GT DAILY 07/09/16 Furosemide* (LASIX*) 20 Mg Tablet, 20 MG GT DAILY 07/09/16 Folic Acid* (FOLIC ACID*) 1 Mg Tablet, 1 MG GT DAILY 07/09/16 Famotidine (FAMOTIDINE) 20 Mg Tablet, 20 MG GT DAILY, 0 Refills 07/09/16 Na Phos,M-B/Na Phos,Di-Ba* (FLEET ENEMA*) 133 Ml Enema, 133 ML RECTAL EVERY TWO DAYS Y for Constipation, ML 0 Refills 05/24/16 Bisacodyl (DULCOLAX) 10 Mg Supp.rect, 10 MG RC DAILY Y for Constipation, SUPP 05/24/16 Acetaminophen 160MG/5ML* (ACETAMINOPHEN*) 160 Mg/5 Ml Elixir, 20 ML ORAL EVERY 4 HOURS Y for For Pain, ML 05/24/16 Cran/Vitc/Mannose/Inulin/Brom (UTI-STAT LIQUID) 3,875 Mg/30 Ml Liquid, 3875 MG GT DAILY, ML 05/24/16 Ascorbic Acid* (VITAMIN C*) 500 Mg Tablet, 500 MG GT DAILY, #30 TAB 0 Refills 05/24/16 Zinc Sulfate (ZINC SULFATE*) 220 Mg Capsule, 220 MG GT DAILY, CAP 0 Refills 05/24/16 Propranolol Hcl* (INDERAL*) 10 Mg Tablet, 10 MG GT BID, #90 TAB 0 Refills 05/24/16 Lactulose (LACTULOSE*) 20 Gm/30 Ml Solution, 30 ML GT QID, ML 0 Refills 05/24/16 Discontinued Reported Medications Ibuprofen (Advil Children's) 100 Mg/5 Ml Oral.susp, 200 MG GT Q6H Y for For Pain 07/09/16 Ferrous Sulfate* (FERROUS SULFATE*) 325 Mg Tablet, 325 MG GT DAILY, 0 Refills 07/09/16 Med list reviewed/reconciled: Yes Allergies: Coded Allergies: No Known Allergies (Unverified , 06/09/16) Patient History Limited by: medical condition History Provided By: Medical Record PM Narrative Past Medical History: No History, Except For Hx Cardiac Problems: Yes Hx Hypertension: Yes Hx COPD: Yes Hx Cancer: Yes Hx Gastrointestinal Problems: Yes Hx Neurological Problems: Yes Hx Cerebrovascular Accident: Yes - SUBDURAL HEMORRHAGE Hx Seizures: Yes Hx Dysphasia: Yes Hx Weakness: Yes Review of Systems All Other Systems: negative except mentioned in HPI Physical Exam Vital Signs Date Time Temp Pulse Resp B/P Pulse Ox O2 Delivery O2 Flow Rate FiO2 07/20/16 18:11 98.1 90 16 113/66 98 Room Air 07/20/16 18:22 40 Sp02 EP Interpretation: reviewed Labs Laboratory Tests Test 07/20/16 20:00 07/21/16 10:10 White Blood Count 6.9 K/UL (4.8-10.8) 6.1 K/UL (4.8-10.8) Red Blood Count 1.85 M/UL (4.70-6.10) L 3.32 M/UL (4.70-6.10) L Hemoglobin 6.0 G/DL (14.2-18.0) *L 10.0 G/DL (14.2-18.0) #L Hematocrit 18.1 % (42.0-52.0) L 29.8 % (42.0-52.0) #L Mean Corpuscular Volume 98 FL (80-99) 90 FL (80-99) # Mean Corpuscular Hemoglobin 32.2 PG (27.0-31.0) H 30.0 PG (27.0-31.0) Mean Corpuscular Hemoglobin Concent 33.0 G/DL (32.0-36.0) 33.4 G/DL (32.0-36.0) Red Cell Distribution Width 19.8 % (11.6-14.8) H 17.3 % (11.6-14.8) H Platelet Count 130 K/UL (150-450) L 123 K/UL (150-450) L Mean Platelet Volume 5.0 FL (6.5-10.1) L 5.3 FL (6.5-10.1) L Neutrophils (%) (Auto) % (45.0-75.0) 72.8 % (45.0-75.0) Lymphocytes (%) (Auto) % (20.0-45.0) 12.2 % (20.0-45.0) L Monocytes (%) (Auto) % (1.0-10.0) 9.0 % (1.0-10.0) Eosinophils (%) (Auto) % (0.0-3.0) 5.4 % (0.0-3.0) H Basophils (%) (Auto) % (0.0-2.0) 0.6 % (0.0-2.0) Differential Total Cells Counted 100 Neutrophils % (Manual) 86 % (45-75) H Lymphocytes % (Manual) 8 % (20-45) L Monocytes % (Manual) 3 % (1-10) Eosinophils % (Manual) 2 % (0-3) Basophils % (Manual) 1 % (0-2) Band Neutrophils 0 % (0-8) Platelet Estimate Decreased L Platelet Morphology Normal Polychromasia 1+ Hypochromasia 2+ Anisocytosis 2+ Prothrombin Time 14.7 SEC (9.30-11.50) H 14.7 SEC (9.30-11.50) H Prothromb Time International Ratio 1.4 (0.9-1.1) H 1.4 (0.9-1.1) H Activated Partial Thromboplast Time 35 SEC (23-33) H 34 SEC (23-33) H Sodium Level 139 mEQ/L (135-145) 142 mEQ/L (135-145) Potassium Level 3.7 mEQ/L (3.4-4.9) 4.0 mEQ/L (3.4-4.9) Chloride Level 101 mEQ/L (98-107) 105 mEQ/L (98-107) Carbon Dioxide Level 23 mEQ/L (20-30) 22 mEQ/L (20-30) Anion Gap 15 (5-15) 15 (5-15) Blood Urea Nitrogen 35 mg/dL (7-23) H 29 mg/dL (7-23) H Creatinine 0.3 mg/dL (0.7-1.2) L 0.3 mg/dL (0.7-1.2) L Estimat Glomerular Filtration Rate > 60 mL/min (>60) > 60 mL/min (>60) Glucose Level 109 mg/dL (74-106) H 94 mg/dL (74-106) Calcium Level 8.5 mg/dL (8.6-10.2) L 8.2 mg/dL (8.6-10.2) L Total Bilirubin 1.2 mg/dL (0.0-1.2) 2.1 mg/dL (0.0-1.2) H Direct Bilirubin 0.5 mg/dL (0.1-0.3) H 0.6 mg/dL (0.1-0.3) H Aspartate Amino Transf (AST/SGOT) 95 U/L (5-40) H 63 U/L (5-40) H Alanine Aminotransferase (ALT/SGPT) 48 U/L (3-41) H 38 U/L (3-41) Alkaline Phosphatase 334 U/L (40-129) H 300 U/L (40-129) H Total Protein 6.5 g/dL (6.6-8.7) L 6.4 g/dL (6.6-8.7) L Albumin 2.3 g/dL (3.5-5.2) L 2.1 g/dL (3.5-5.2) L Globulin 4.2 g/dL 4.3 g/dL Albumin/Globulin Ratio 0.5 (1.0-2.7) L 0.4 (1.0-2.7) L General Appearance: no apparent distress Head: normocephalic EENT: normal ENT inspection Neck: supple Respiratory: other - trach Cardiovascular: normal rate Gastrointestinal: gt - c/d/i Neurologic: alert Skin: normal inspection, normal color, no rash Lymphatic: normal inspection, no adenopathy Current Medications Current Medications Medications (Trade) Dose Ordered Sig/Hair Route PRN Reason Start Time Stop Time Status Last Admin Dose Admin Acetaminophen (Tylenol) 650 mg Q4H PRN ORAL fever 07/20/16 22:30 08/19/16 22:29 Al Hydroxide/Mg Hydroxide (Mylanta II) 30 ml Q6H PRN ORAL dyspepsia 07/20/16 22:30 08/19/16 22:29 Albuterol/ Ipratropium 3 ml 3 ml Q8HRT HHN 07/21/16 07:00 07/26/16 06:59 Colistimethate Sodium 150 mg 150 mg Q12HR@10,22 INH 07/21/16 22:00 07/28/16 21:59 Dextrose (Dextrose 50%) STAT PRN IV Hypoglycemia 07/20/16 22:30 08/19/16 22:29 Dextrose/Sodium Chloride (D5 0.45% NS) 1,000 ml @ 75 mls/hr [id number] IV 07/20/16 23:30 08/19/16 23:29 07/21/16 12:36 Diphenhydramine HCl (Benadryl) 25 mg Q6H PRN ORAL Itching/Pruritis 07/20/16 22:30 08/19/16 22:29 Lactulose (Cephulac) 20 gm QID GT 07/21/16 09:00 08/20/16 08:59 Levetiracetam (Keppra) 1,500 mg Q12HR GT 07/21/16 09:00 08/20/16 08:59 Lorazepam (Ativan) 1 mg Q6H PRN GT For Anxiety 07/20/16 22:30 07/27/16 22:29 Meropenem/Sodium Chloride (Merrem/Sodium Chloride) 110 ml @ 110 mls/hr Q8HR IVPB 07/21/16 14:00 07/26/16 13:59 Morphine Sulfate (Morphine Sulfate) 2 mg Q4H PRN IVP severe Pain (Pain Scale 7-10) 07/20/16 22:30 07/27/16 22:29 Nitroglycerin (Ntg) 0.4 mg Q5M X 3 DOSES PRN SL Prn Chest Pain 07/20/16 22:30 08/19/16 22:29 Octreotide Acetate 500 mcg/ Sodium Chloride 500 ml @ 50 mls/hr Q10H IV 07/21/16 11:00 08/20/16 10:59 07/21/16 11:08 Ondansetron HCl (Zofran) 4 mg Q6H PRN IVP Nausea & Vomiting 07/20/16 22:30 08/19/16 22:29 Pantoprazole/ Sodium Chloride (Protonix/Sodium Chloride) 250 ml @ 25 mls/hr Q10H IV 07/21/16 11:00 08/20/16 10:59 07/21/16 11:07 Polyethylene Glycol (Miralax) 17 gm HSPRN PRN ORAL Constipation 07/20/16 22:30 08/19/16 22:29 UNV Propranolol HCl 10 mg 10 mg BID@0900,2100 GT 07/21/16 09:00 08/20/16 08:59 GI: Plan Problems: (1) Esophageal varices determined by endoscopy (2) Anemia due to blood loss, acute (3) Feeding by G-tube (4) Ascites (5) Elevated LFTs (6) Liver cirrhosis (7) Anemia Plan abd us reviewed from previous admission >> Chronic liver disease/cirrhosis. Stigmata of portal hypertension including splenomegaly, ascites, suspected portosystemic varices. Hep C positive s/p EGD 07/14/16 - SUMMARY OF FINDINGS: 1. Status post banding of esophageal varices. 2. Portal hypertensive gastropathy. 3. G-tube in place. EGD scheduled for tomorrow. - maintain NPO. - Hold thinners octreotide gtt ppi gtt abx fu iron panel lactulose + xifaxan fu labs Discussed with Dr. Arndt. Thank you for referring this patient, we will follow. Paulette Romero N.P. July 21, 2016 13:22
--- NOTE | 2016-07-21 13:32 | Diagnostic Imaging Report ---
Indication: SOB Technique: One view of the chest Comparison: 07/13/2016 Findings: The right hemidiaphragm is elevated and there are compressive atelectatic changes at the right lung base. There are is decreased opacity at the left lung base, with some residual haziness. Tracheostomy remains. Heart size is normal. Impression: Slightly improved aeration at the left lung base. Otherwise, little change of address clerk 7 days, findings as noted This agrees with the preliminary interpretation provided by the emergency room physician
--- NOTE | 2016-07-21 14:19 | Wound Care Consultation ---
Wound Assessment Wound Assessment : Wound Present on Admission: Yes New Wound: No Status Change of Wound: No Wound Location Body Site Modif: mid Wound Location Body Site: sacral Wound Type: pressure ulcer Marlin Test: Does not Marlin Pressure Ulcer Stage: IV/unstageable Wound Thickness: Full Thickness Wound Length: 5.0 Wound Width: 5.0 Wound Depth: 0.3 Percent of Wound [place]/Red: 100 Wound Drainage Description: Serosanguineous Wound Drainage Amount: Moderate Wound Drainage Odor: None/Absent Tissue Surrounding Wound: Macerated Wound Undermining at 3:00: 2.0 Wound Undermining at 6:00: 1.0 Wound General Appearance: Reddened, Draining, Bone Palpable Wound Comment #1 Sacral stage IV pressure ulcer #2 Scar tissue on left buttock Recommendation -Sacral pressure ulcer Cleanse with saline pat dry apply hydrogel to wound bed apply calcium alginate cover with Biatain silicone -Turn and reposition -Keep clean and dry -Optimize nutrition -Low air loss mattress -Offload both heels -Heel protector on both heels -Assess and f/u accordingly for any changes REINALDO DIAZ RN July 21, 2016 14:19
[2016-07-21] MEDS: levETIRAcetam 500mg/5ml Liquid GT SCH ×2 (14:41→21:13)
[2016-07-21] MEDS: Meropenem 2 GM in NS 110 ML IVPB SCH ×2 (15:02→22:12)
[2016-07-21] MEDS ORDERED: Miralax 17gm pkt ORAL PRN (15:30)
[2016-07-21] MEDS ORDERED: NS 275ml ONE (17:12)
[2016-07-21] MEDS ORDERED: D5 1/2NS 1000ml IV ONE (17:12)
--- NOTE | 2016-07-21 17:31 | Consultation ---
DATE OF CONSULTATION: INFECTIOUS DISEASE CONSULTATION CONSULTING PHYSICIAN: aMrc Urena M.D. REFERRING PHYSICIAN: Uma Breen M.D. REASON FOR CONSULTATION: Evaluation of the patient for sepsis, pneumonia, and antibiotic management. HISTORY OF PRESENT ILLNESS: The patient is a 56-year-old male with multiple medical problems, who has been admitted to this medical center recently. Now, the patient has been readmitted with GI bleed. The patient was recently admitted here and was diagnosed with urinary tract infection, pneumonia, and an Infectious Disease consultation has been requested for followup of the patient and antibiotic management. PAST MEDICAL HISTORY: 1. History of polymicrobial bacteremia recently. 2. History of gross hematuria and urinary tract infection. 3. History of tracheostomy-associated pneumonia due to Pseudomonas and Proteus mirabilis. 4. Sacral decubitus. 5. Hepatitis C antibody positive. 6. Anemia. 7. Liver cirrhosis. 8. GI bleed. 9. History of vent-dependant respiratory failure. 10. PEG and trach placement. 11. History of CVA. MEDICATIONS: Currently, off of antibiotics. ALLERGIES: No known drug allergies. SOCIAL HISTORY: The patient lives in the shelter. FAMILY HISTORY: Unavailable. REVIEW OF SYSTEMS: Unobtainable due to the patient being on the vent. However, the patient did not have any abdominal pain. PHYSICAL EXAMINATION: VITAL SIGNS: Temperature 98.5 degrees, blood pressure 108/60, pulse 86, and respiratory rate 18. HEENT: Mild pale conjunctivae. No icterus. NECK: No lymphadenopathy. CHEST: Coarse breathing sounds. HEART: S1 and S2. ABDOMEN: Soft. G-tube in place. Mildly distended. EXTREMITIES: No cyanosis. NEUROLOGIC: Awake and relapsed. LABORATORY DATA: White blood cells 6.1, hemoglobin 10, and platelets 123,000. UA, too numerous to count red blood cells and 15 to 20 white blood cells dated 07/11/2016. BUN 35 and creatinine 0.5. Alkaline phosphatase 334. AST and ALT are mildly elevated. Blood culture from 07/14/2016 is pending. ASSESSMENT: The patient is a 56-year-old male with multiple medical problems, who has been admitted to this medical center. The patient's recent culture showed multiple drug-resistant gram negatives including pseudomonas, Klebsiella, and Proteus mirabilis. This patient also recently had history of methicillin-resistant Staphylococcus aureus bacteremia. PLAN: 1. We will continue the patient on meropenem and colistin inhalation for at least one more week. 2. We will monitor CBC. 3. Monitor BMP. 4. Monitor cultures (blood, urine, and sputum). 5. Monitor the patient's clinical course and labs. 6. Follow GI recommendations. 7. Based on the patient's clinical course and labs, we will do further recommendations. Thank you, Dr. Breen, for allowing me to participate in the care of this patient. I will follow the patient with you during this hospitalization. Marc Urena M.D. DR: DIEGO JOB#: [id number] CC:
--- NOTE | 2016-07-21 18:35 | Cardiology Report ---
APPROVED REPORT EKG Measurement Heart [id number] Normal sinus rhythm Right bundle branch block Abnormal ECG
[2016-07-21] MEDS ORDERED: DiphenhydrAMINE 25mg/10ml Elixir GT PRN (18:48)
[2016-07-21] MEDS ORDERED: Mylanta II UD 30ml GT PRN (18:48)
--- NOTE | 2016-07-21 21:03 | General Progress Note ---
Assessment/Plan Status: stable Status Narrative minimal hematuria, no clots no evidence of retention Assessment/Plan irrigate cervantes PRN Change cervantes q month possible cystoscopy if the bleeding continues Subjective ROS Limited/Unobtainable: Yes Genitourinary: Reports: hematuria Allergies: Coded Allergies: No Known Allergies (Unverified , 06/09/16) Objective Last 24 Hour Vital Signs Date Time Temp Pulse Resp B/P Pulse Ox O2 Delivery O2 Flow Rate FiO2 07/21/16 20:00 97.7 92 20 106/70 Room Air 07/21/16 19:20 77 23 40 07/21/16 17:18 85 26 40 07/21/16 16:01 98.4 83 24 117/65 99 Mechanical Ventilator 40 07/21/16 16:00 40 07/21/16 15:54 87 07/21/16 14:51 81 19 40 07/21/16 12:37 97 20 40 07/21/16 12:00 40 07/21/16 12:00 71 07/21/16 11:38 98.1 85 24 113/65 98 Mechanical Ventilator 40 07/21/16 10:56 78 19 40 07/21/16 09:00 78 108/66 07/21/16 08:41 72 20 40 07/21/16 08:00 40 07/21/16 08:00 98.5 83 21 108/66 100 Mechanical Ventilator 40 07/21/16 07:56 68 07/21/16 07:05 69 20 40 07/21/16 05:48 92 17 40 07/21/16 04:00 40 07/21/16 04:00 78 07/21/16 04:00 97.8 74 22 109/60 100 Mechanical Ventilator 40 07/21/16 03:19 77 17 40 07/21/16 01:28 88 25 40 07/21/16 00:33 89 07/21/16 00:30 98.7 89 22 107/56 100 Mechanical Ventilator 40 07/21/16 00:30 40 07/21/16 00:15 98.7 89 22 107/56 100 Mechanical Ventilator 40 07/20/16 23:04 101 27 40 07/20/16 22:36 98.9 91 21 113/52 100 Mechanical Ventilator 40 07/20/16 22:21 98.8 97 20 120/56 100 Mechanical Ventilator 40 07/20/16 22:21 98.8 97 20 Intake and Output 07/20/16 07/21/16 19:00 07:00 Intake Total 375 ml Output Total 600 ml Balance -225 ml Intake IV Total 375 ml Output Urine Total 600 ml # Bowel Movements 1 Laboratory Tests 07/21/16 10:10: White Blood Count 6.1, Red Blood Count 3.32L, Hemoglobin 10.0#L, Hematocrit 29.8 #L, Mean Corpuscular Volume 90#, Mean Corpuscular Hemoglobin 30.0, Mean Corpuscular Hemoglobin Concent 33.4, Red Cell Distribution Width 17.3H, Platelet Count 123L, Mean Platelet Volume 5.3L, Neutrophils (%) (Auto) 72.8, Lymphocytes (%) (Auto) 12.2L, Monocytes (%) (Auto) 9.0, Eosinophils (%) (Auto) 5.4H, Basophils (%) (Auto) 0.6, Prothrombin Time 14.7H, Prothromb Time International Ratio 1.4H, Activated Partial Thromboplast Time 34H, Sodium Level 142, Potassium Level 4.0, Chloride Level 105, Carbon Dioxide Level 22, Anion Gap 15, Blood Urea Nitrogen 29H, Creatinine 0.3L, Estimat Glomerular Filtration Rate > 60, Glucose Level 94, Calcium Level 8.2L, Total Bilirubin 2.1H, Direct Bilirubin 0.6H, Aspartate Amino Transf (AST/SGOT) 63H, Alanine Aminotransferase (ALT/SGPT) 38, Alkaline Phosphatase 300H, Total Protein 6.4L, Albumin 2.1L, Globulin 4.3, Albumin/Globulin Ratio 0.4L Height (Feet): 5 Height (Inches): 2.00 Weight (Pounds): 177 Pelvis: no masses - tinge blood in the urine cervantes, no clots, no active bleeding Elia Montana MD July 21, 2016 21:03
[2016-07-21] MEDS: Morphine Sulfate 2mg/ml Inj IVP PRN (21:11)
[2016-07-21] MEDS: DuoNeb 0.5-3(2.5)mg/3ml neb HHN SCH ×2 (22:40→22:43)
[2016-07-21] MEDS: Colistin for inhalation INH SCH (23:00)
[2016-07-22] MEDS: D5 1/2NS 1,000 ML IV SCH ×2 (02:15→14:29)
[2016-07-22 04:00] VITALS: BP 113/43
[2016-07-22 05:34] LABS: BASOPHILS % (AUTO) 0.9 % (0.0-2.0); EOSINOPHILS % (AUTO) 7.1 % (0.0-3.0); LYMPHOCYTES % (AUTO) 12.2 % (20.0-45.0); MEAN CORPUSCULAR HEMOGLOBIN 30.4 PG (27.0-31.0); MEAN CORPUSCULAR HGB CONC 33.2 G/DL (32.0-36.0); MEAN CORPUSCULAR VOLUME 92 FL (80-99); MEAN PLATELET VOLUME 6.2 FL (6.5-10.1); MONOCYTES % (AUTO) 8.2 % (1.0-10.0); NEUTROPHILS % (AUTO) 71.5 % (45.0-75.0); PLATELET COUNT 135 K/UL (150-450); RED BLOOD COUNT 3.28 M/UL (4.70-6.10); RED CELL DISTRIBUTION WIDTH 17.9 % (11.6-14.8); WHITE BLOOD COUNT 5.4 K/UL (4.8-10.8)
[2016-07-22 06:01] LABS: ALANINE AMINOTRANSFERASE 31 U/L (3-41); ALBUMIN/GLOBULIN RATIO 0.4 (1.0-2.7); ANION GAP 14 (5-15); ASPARTATE AMINO TRANSFERASE 43 U/L (5-40); CALCIUM 7.8 mg/dL (8.6-10.2); CARBON DIOXIDE 21 mEQ/L (20-30); CHLORIDE 107 mEQ/L (98-107); CREATININE 0.2 mg/dL (0.7-1.2); GLOMERULAR FILTRATION RATE > 60 mL/min (>60); HEMOLYSIS 13; SODIUM 142 mEQ/L (135-145); TOTAL PROTEIN 6.2 g/dL (6.6-8.7)
[2016-07-22 06:03] LABS: INR 1.4 (0.9-1.1); PROTHROMBIN TIME 14.6 SEC (9.30-11.50)
[2016-07-22] MEDS: Meropenem 2 GM in NS 110 ML IVPB SCH ×3 (06:27→21:20)
[2016-07-22] MEDS: Pantoprazole 80 MG in NS 250 ML IV SCH ×2 (07:11→17:06)
[2016-07-22] MEDS: Octreotide Acetate 500 MCG in Sodium Chloride 499 ML IV SCH ×2 (07:11→17:06)
[2016-07-22 07:36] LABS: BILIRUBIN,DIRECT 0.7 mg/dL (0.1-0.3)
[2016-07-22] MEDS: DuoNeb 0.5-3(2.5)mg/3ml neb HHN SCH ×3 (07:54→23:36)
[2016-07-22 08:00] VITALS: BP 90/51
[2016-07-22] MEDS: Propranolol 10mg tab GT SCH ×2 (09:00→21:07)
[2016-07-22] MEDS: Lactulose 20gm/30ml UDC GT SCH ×4 (09:00→21:07)
[2016-07-22] MEDS: levETIRAcetam 500mg/5ml Liquid GT SCH ×2 (09:06→21:08)
[2016-07-22] MEDS: Colistin for inhalation INH SCH ×2 (10:20→22:09)
[2016-07-22] MEDS ORDERED: D5 1/2NS 1000ml IV ONE (10:33)
[2016-07-22 11:21] LABS: OTHERS PATHOLOGIST COMMENT
[2016-07-22 12:00] VITALS: BP 102/57
--- NOTE | 2016-07-22 12:50 | Pulmonology Progress Note ---
Assessment/Plan Problems: (1) Gastrointestinal hemorrhage (2) Chronic respiratory failure (3) Liver cirrhosis (4) Feeding by G-tube (5) Ascites Assessment/Plan NPo IV fluids check h/h might need endoscopy [place] culture check electrolytes. Subjective ROS Limited/Unobtainable: No Constitutional: Reports: no symptoms HEENT: Repors: no symptoms Respiratory: Reports: no symptoms Cardiovascular: Reports: no symptoms Allergies: Coded Allergies: No Known Allergies (Unverified , 06/09/16) Objective Last 24 Hour Vital Signs Date Time Temp Pulse Resp B/P Pulse Ox O2 Delivery O2 Flow Rate FiO2 07/22/16 12:00 40 07/22/16 11:03 76 19 40 07/22/16 10:32 60 19 99 Mechanical Ventilator 40 07/22/16 10:21 63 19 99 Mechanical Ventilator 40 07/22/16 09:00 60 14 40 07/22/16 09:00 60 90/51 07/22/16 08:05 60 15 100 Mechanical Ventilator 40 07/22/16 08:00 40 07/22/16 08:00 97.9 56 14 90/51 100 Mechanical Ventilator 40 07/22/16 07:54 59 19 97 Mechanical Ventilator 40 07/22/16 07:49 63 07/22/16 06:49 59 19 40 07/22/16 05:18 67 23 40 07/22/16 04:00 40 07/22/16 04:00 73 07/22/16 04:00 99.0 68 18 113/43 100 Mechanical Ventilator 07/22/16 03:16 59 17 40 07/22/16 01:14 71 22 40 07/22/16 00:00 40 07/22/16 00:00 64 07/21/16 23:58 98.2 71 18 128/109 99 Mechanical Ventilator 07/21/16 23:38 69 21 99 Mechanical Ventilator 40 07/21/16 23:08 67 21 40 07/21/16 23:05 68 20 99 Mechanical Ventilator 40 07/21/16 23:05 68 20 99 Mechanical Ventilator 40 07/21/16 22:55 67 21 99 Mechanical Ventilator 40 07/21/16 21:13 80 106/70 07/21/16 21:07 80 22 40 07/21/16 20:00 40 07/21/16 20:00 97.7 92 20 106/70 Room Air 07/21/16 20:00 66 07/21/16 20:00 66 07/21/16 19:20 77 23 40 07/21/16 17:18 85 26 40 07/21/16 16:01 98.4 83 24 117/65 99 Mechanical Ventilator 40 07/21/16 16:00 40 07/21/16 15:54 87 07/21/16 14:51 81 19 40 Intake and Output 07/21/16 07/22/16 19:00 07:00 Intake Total 2360 ml 1891 ml Output Total 400 ml 250 ml Balance 1960 ml 1641 ml Intake IV Total 1610 ml 1891 ml Blood Product 750 ml Output Urine Total 400 ml 250 ml # Voids 1 HEENT: normocephalic Respiratory/Chest: chest wall non-tender, lungs clear Cardiovascular: normal peripheral pulses, normal rate Abdomen: normal bowel sounds, soft, non tender Genitourinary: normal external genitalia Extremities: no clubbing Skin: no lesions Neurologic/Psychiatric: brass pourer II-XII grossly normal Lymphatic: no neck adenopathy Microbiology Date/Time Source Procedure Growth Status 07/21/16 12:30 Urine,Clean Catch Urine Culture - Preliminary Resulted 07/21/16 00:30 Sacral Wound Gram Stain - Final Resulted 07/21/16 00:30 Decubitis Culture - Preliminary Gram Negative Bacillus 1 Gram Negative Bacillus 2 Resulted Laboratory Tests 07/22/16 04:00: White Blood Count 5.4, Red Blood Count 3.28L, Hemoglobin 10.0L, Hematocrit 30.1L , Mean Corpuscular Volume 92, Mean Corpuscular Hemoglobin 30.4, Mean Corpuscular Hemoglobin Concent 33.2, Red Cell Distribution Width 17.9H, Platelet Count 135L, Mean Platelet Volume 6.2L, Neutrophils (%) (Auto) 71.5, Lymphocytes (%) (Auto) 12.2L, Monocytes (%) (Auto) 8.2, Eosinophils (%) (Auto) 7.1H, Basophils (%) (Auto) 0.9, Prothrombin Time 14.6H, Prothromb Time International Ratio 1.4H, Activated Partial Thromboplast Time 40H, Sodium Level 142, Potassium Level 4.0, Chloride Level 107, Carbon Dioxide Level 21, Anion Gap 14, Blood Urea Nitrogen 24H, Creatinine 0.2L, Estimat Glomerular Filtration Rate > 60, Glucose Level 145H, Calcium Level 7.8L, Total Bilirubin 2.3H, Direct Bilirubin 0.7H, Aspartate Amino Transf (AST/SGOT) 43H, Alanine Aminotransferase (ALT/SGPT) 31, Alkaline Phosphatase 262H, Total Protein 6.2L, Albumin 1.8L, Globulin 4.4, Albumin/Globulin Ratio 0.4L Current Medications Medications (Trade) Dose Ordered Sig/Hair Route PRN Reason Start Time Stop Time Status Last Admin Dose Admin Acetaminophen (Tylenol) 650 mg Q4H PRN ORAL fever 07/20/16 22:30 08/19/16 22:29 Al Hydroxide/Mg Hydroxide (Mylanta II) 30 ml Q6H PRN GT dyspepsia 07/21/16 18:48 08/19/16 22:29 Albuterol/ Ipratropium 3 ml 3 ml Q8HRT HHN 07/21/16 07:00 07/26/16 06:59 07/22/16 07:54 Colistimethate Sodium 150 mg 150 mg Q12HR@10,22 INH 07/21/16 22:00 07/28/16 21:59 07/22/16 10:20 Dextrose (Dextrose 50%) STAT PRN IV Hypoglycemia 07/20/16 22:30 08/19/16 22:29 Dextrose/Sodium Chloride (D5 0.45% NS) 1,000 ml @ 75 mls/hr [id number] IV 07/20/16 23:30 08/19/16 23:29 07/22/16 02:15 Diphenhydramine HCl (Benadryl) 25 mg Q6H PRN GT Itching/Pruritis 07/21/16 18:48 08/19/16 22:29 Lactulose (Cephulac) 20 gm QID GT 07/21/16 09:00 08/20/16 08:59 07/21/16 21:12 Levetiracetam (Keppra) 1,500 mg Q12HR GT 07/21/16 09:00 08/20/16 08:59 07/22/16 09:06 Lorazepam (Ativan) 1 mg Q6H PRN GT For Anxiety 07/20/16 22:30 07/27/16 22:29 Meropenem/Sodium Chloride (Merrem/Sodium Chloride) 110 ml @ 110 mls/hr Q8HR IVPB 07/21/16 14:00 07/26/16 13:59 07/22/16 06:27 Morphine Sulfate (Morphine Sulfate) 2 mg Q4H PRN IVP severe Pain (Pain Scale 7-10) 07/20/16 22:30 07/27/16 22:29 07/21/16 21:11 Nitroglycerin (Ntg) 0.4 mg Q5M X 3 DOSES PRN SL Prn Chest Pain 07/20/16 22:30 08/19/16 22:29 Octreotide Acetate 500 mcg/ Sodium Chloride 500 ml @ 50 mls/hr Q10H IV 07/21/16 11:00 08/20/16 10:59 07/22/16 07:11 Ondansetron HCl (Zofran) 4 mg Q6H PRN IVP Nausea & Vomiting 07/20/16 22:30 08/19/16 22:29 Pantoprazole/ Sodium Chloride (Protonix/Sodium Chloride) 250 ml @ 25 mls/hr Q10H IV 07/21/16 11:00 08/20/16 10:59 07/22/16 07:11 Propranolol HCl 10 mg 10 mg BID@0900,2100 GT 07/21/16 09:00 08/20/16 08:59 07/21/16 21:13 DANTE HSIEH July 22, 2016 12:50
--- NOTE | 2016-07-22 12:56 | Pre-Procedure Note/Attestation ---
Pre-Procedure Note/Attestation Complete Prior to Procedure Planned Procedure: not applicable Procedure Narrative: egd Indications for Procedure Pre-Operative Diagnosis: gib Attestation I attest that I discussed the nature of the procedure; its benefits; risks and complications; and alternatives (and the risks and benefits of such alternatives ), prior to the procedure, with the patient (or the patient's legal mortician supplies sales representative). I attest that, if there was a reasonable possibility of needing a blood transfusion, the patient (or the patient's legal mortician supplies sales representative) was given the [facility] standardized written summary, pursuant to the [place] Blood Safety Act ([place] Health and Safety Code # 1645, as amended). I attest that I re-evaluated the patient just prior to the surgery and that there has been no change in the patient's H&P, except as documented below: BRIA VELASQUEZ July 22, 2016 12:56
[2016-07-22] MEDS ORDERED: Lidocaine 1% MPF 10mg/ml 5ml ONE (13:30)
[2016-07-22] MEDS ORDERED: Propofol 10mg/ml 20ml IV ONE (13:30)
--- NOTE | 2016-07-22 13:37 | Anethesia Preoperative Eval ---
Anesthesia Pre-op PMH/ROS General Date of Evaluation: July 22, 2016 Time of Evaluation: 13:30 Anesthesiologist: giana ASA Score: ASA 3 Mallampati Score Class I : Soft palate, uvula, fauces, pillars visible Class II: Soft palate, uvula, fauces visible Class III: Soft palate, base of uvula visible Class IV: Only hard plate visible Mallampati Classification: Class II Surgeon: ina Diagnosis: ugib Surgical Procedure: egd Family History: no anesthesia problems Allergies: Coded Allergies: No Known Allergies (Unverified , 06/09/16) Medications: see eMAR Past Medical History Gastrointestinal/Genitourinary: Reports: other - liver cancer, malignant ascites, hepatitis Neurologic/Psychiatric: Reports: CVA, other - muscle weakness, unsteady gait, substance abuse PSxH Narrative: g-tube placementtracheostomy Anesthesia Pre-op Phys. Exam Physician Exam Last Vital Signs Date Time Temp Pulse Resp B/P Pulse Ox O2 Delivery O2 Flow Rate FiO2 07/22/16 12:00 97.8 63 15 102/57 100 Mechanical Ventilator 40 07/21/16 22:55 Constitutional: NAD Neurologic: CN 2-12 intact Cardiovascular: RRR Respiratory: CTA, other - tracheostomy Gastrointestinal: S/NT/ND Airway Exam Mallampati Score: Class II Neck: tracheostomy ROM: limited Teeth: missing, broken Anesthesia Pre-op A/P Labs Hematology Test 07/22/16 04:00 White Blood Count 5.4 K/UL (4.8-10.8) Red Blood Count 3.28 M/UL (4.70-6.10) L Hemoglobin 10.0 G/DL (14.2-18.0) L Hematocrit 30.1 % (42.0-52.0) L Mean Corpuscular Volume 92 FL (80-99) Mean Corpuscular Hemoglobin 30.4 PG (27.0-31.0) Mean Corpuscular Hemoglobin Concent 33.2 G/DL (32.0-36.0) Red Cell Distribution Width 17.9 % (11.6-14.8) H Platelet Count 135 K/UL (150-450) L Mean Platelet Volume 6.2 FL (6.5-10.1) L Neutrophils (%) (Auto) 71.5 % (45.0-75.0) Lymphocytes (%) (Auto) 12.2 % (20.0-45.0) L Monocytes (%) (Auto) 8.2 % (1.0-10.0) Eosinophils (%) (Auto) 7.1 % (0.0-3.0) H Basophils (%) (Auto) 0.9 % (0.0-2.0) Coagulation Test 07/22/16 04:00 Prothrombin Time 14.6 SEC (9.30-11.50) H Prothromb Time International Ratio 1.4 (0.9-1.1) H Activated Partial Thromboplast Time 40 SEC (23-33) H Chemistry Test 07/22/16 04:00 Sodium Level 142 mEQ/L (135-145) Potassium Level 4.0 mEQ/L (3.4-4.9) Chloride Level 107 mEQ/L (98-107) Carbon Dioxide Level 21 mEQ/L (20-30) Anion Gap 14 (5-15) Blood Urea Nitrogen 24 mg/dL (7-23) H Creatinine 0.2 mg/dL (0.7-1.2) L Estimat Glomerular Filtration Rate > 60 mL/min (>60) Glucose Level 145 mg/dL (74-106) H Calcium Level 7.8 mg/dL (8.6-10.2) L Total Bilirubin 2.3 mg/dL (0.0-1.2) H Direct Bilirubin 0.7 mg/dL (0.1-0.3) H Aspartate Amino Transf (AST/SGOT) 43 U/L (5-40) H Alanine Aminotransferase (ALT/SGPT) 31 U/L (3-41) Alkaline Phosphatase 262 U/L (40-129) H Total Protein 6.2 g/dL (6.6-8.7) L Albumin 1.8 g/dL (3.5-5.2) L Globulin 4.4 g/dL Albumin/Globulin Ratio 0.4 (1.0-2.7) L Accucheck Labs Test 07/20/16 20:00 07/21/16 10:10 07/22/16 04:00 White Blood Count 6.9 K/UL (4.8-10.8) 6.1 K/UL (4.8-10.8) 5.4 K/UL (4.8-10.8) Red Blood Count 1.85 M/UL (4.70-6.10) 3.32 M/UL (4.70-6.10) 3.28 M/UL (4.70-6.10) Hemoglobin 6.0 G/DL (14.2-18.0) 10.0 G/DL (14.2-18.0) 10.0 G/DL (14.2-18.0) Hematocrit 18.1 % (42.0-52.0) 29.8 % (42.0-52.0) 30.1 % (42.0-52.0) Mean Corpuscular Volume 98 FL (80-99) 90 FL (80-99) 92 FL (80-99) Mean Corpuscular Hemoglobin 32.2 PG (27.0-31.0) 30.0 PG (27.0-31.0) 30.4 PG (27.0-31.0) Mean Corpuscular Hemoglobin Concent 33.0 G/DL (32.0-36.0) 33.4 G/DL (32.0-36.0) 33.2 G/DL (32.0-36.0) Red Cell Distribution Width 19.8 % (11.6-14.8) 17.3 % (11.6-14.8) 17.9 % (11.6-14.8) Platelet Count 130 K/UL (150-450) 123 K/UL (150-450) 135 K/UL (150-450) Mean Platelet Volume 5.0 FL (6.5-10.1) 5.3 FL (6.5-10.1) 6.2 FL (6.5-10.1) Neutrophils (%) (Auto) % (45.0-75.0) 72.8 % (45.0-75.0) 71.5 % (45.0-75.0) Lymphocytes (%) (Auto) % (20.0-45.0) 12.2 % (20.0-45.0) 12.2 % (20.0-45.0) Monocytes (%) (Auto) % (1.0-10.0) 9.0 % (1.0-10.0) 8.2 % (1.0-10.0) Eosinophils (%) (Auto) % (0.0-3.0) 5.4 % (0.0-3.0) 7.1 % (0.0-3.0) Basophils (%) (Auto) % (0.0-2.0) 0.6 % (0.0-2.0) 0.9 % (0.0-2.0) Differential Total Cells Counted 100 Neutrophils % (Manual) 86 % (45-75) Lymphocytes % (Manual) 8 % (20-45) Monocytes % (Manual) 3 % (1-10) Eosinophils % (Manual) 2 % (0-3) Basophils % (Manual) 1 % (0-2) Band Neutrophils 0 % (0-8) Other Cell Type Pathologist comment Platelet Estimate Decreased Platelet Morphology Normal Polychromasia 1+ Hypochromasia 2+ Anisocytosis 2+ Prothrombin Time 14.7 SEC (9.30-11.50) 14.7 SEC (9.30-11.50) 14.6 SEC (9.30-11.50) Prothromb Time International Ratio 1.4 (0.9-1.1) 1.4 (0.9-1.1) 1.4 (0.9-1.1) Activated Partial Thromboplast Time 35 SEC (23-33) 34 SEC (23-33) 40 SEC (23-33) Sodium Level 139 mEQ/L (135-145) 142 mEQ/L (135-145) 142 mEQ/L (135-145) Potassium Level 3.7 mEQ/L (3.4-4.9) 4.0 mEQ/L (3.4-4.9) 4.0 mEQ/L (3.4-4.9) Chloride Level 101 mEQ/L (98-107) 105 mEQ/L (98-107) 107 mEQ/L (98-107) Carbon Dioxide Level 23 mEQ/L (20-30) 22 mEQ/L (20-30) 21 mEQ/L (20-30) Anion Gap 15 (5-15) 15 (5-15) 14 (5-15) Blood Urea Nitrogen 35 mg/dL (7-23) 29 mg/dL (7-23) 24 mg/dL (7-23) Creatinine 0.3 mg/dL (0.7-1.2) 0.3 mg/dL (0.7-1.2) 0.2 mg/dL (0.7-1.2) Estimat Glomerular Filtration Rate > 60 mL/min (>60) > 60 mL/min (>60) > 60 mL/min (>60) Glucose Level 109 mg/dL (74-106) 94 mg/dL (74-106) 145 mg/dL (74-106) Calcium Level 8.5 mg/dL (8.6-10.2) 8.2 mg/dL (8.6-10.2) 7.8 mg/dL (8.6-10.2) Total Bilirubin 1.2 mg/dL (0.0-1.2) 2.1 mg/dL (0.0-1.2) 2.3 mg/dL (0.0-1.2) Direct Bilirubin 0.5 mg/dL (0.1-0.3) 0.6 mg/dL (0.1-0.3) 0.7 mg/dL (0.1-0.3) Aspartate Amino Transf (AST/SGOT) 95 U/L (5-40) 63 U/L (5-40) 43 U/L (5-40) Alanine Aminotransferase (ALT/SGPT) 48 U/L (3-41) 38 U/L (3-41) 31 U/L (3-41) Alkaline Phosphatase 334 U/L (40-129) 300 U/L (40-129) 262 U/L (40-129) Total Protein 6.5 g/dL (6.6-8.7) 6.4 g/dL (6.6-8.7) 6.2 g/dL (6.6-8.7) Albumin 2.3 g/dL (3.5-5.2) 2.1 g/dL (3.5-5.2) 1.8 g/dL (3.5-5.2) Globulin 4.2 g/dL 4.3 g/dL 4.4 g/dL Albumin/Globulin Ratio 0.5 (1.0-2.7) 0.4 (1.0-2.7) 0.4 (1.0-2.7) Risk Assessment & Plan Assessment: ugib Plan: egd Status Change Before Surgery: No Pre-Antibiotics Drug: LOUISA Alves July 22, 2016 13:37
--- NOTE | 2016-07-22 13:51 | Immediate Post-Op Evaluation ---
Immediate Post-Op Evalulation Immediate Post-Op Evalulation Procedure: egd Date of Evaluation: July 22, 2016 Time of Evaluation: 14:20 IV Fluids: 0.9 ns 100ml Blood Products: none Estimated Blood Loss: negligible Blood Pressure Systolic: 135 Blood Pressure Diastolic: 65 Pulse Rate: 72 Respiratory Rate: 14 O2 Sat by Pulse Oximetry: 100 Temperature (Fahrenheit): 97.8 Pain Score (1-10): 0 Nausea: No Vomiting: No Complications none Patient Status: awake, reacts, ventilated Hydration Status: adequate Drug: LOUISA Alves July 22, 2016 13:51
--- NOTE | 2016-07-22 14:53 | Endoscopy Procedure Note ---
Endoscopy Procedure Note Indication for Procedure: gib Procedures Performed: EGD Operative Findings/Diagnosis: esoph varices Specimen: none Pt Tolerated Procedure Well: Yes Estimated Blood Loss: none Anesthesiologist: henry heard Anesthesia: MAC Implant(s) used?: No 50 yrs or older w/o bx or poly: Not Applicable 10yrs. F/U not recommended: Not Applicable BRIA VELASQUEZ July 22, 2016 14:53
[2016-07-22 16:00] VITALS: BP 111/54
[2016-07-22 20:00] VITALS: BP 115/63
--- NOTE | 2016-07-22 23:32 | Procedure Note ---
DATE OF PROCEDURE: 07/22/2016 SURGEON: Anthony Arndt M.D. PROCEDURE: Upper endoscopy with biopsy. ANESTHESIOLOGIST: Dianna Hensley M.D. INSTRUMENT: Olympus adult flexible upper endoscope. INDICATION: GI bleeding. REASON FOR PROCEDURE: The procedure, risks, benefits, and possible consequences, including hemorrhage, aspiration, perforation and infection, and alternative treatments, were explained to the patient/legal guardian by Dr. Anthony Arndt and the patient/legal guardian understood and accepted these risks. DESCRIPTION OF PROCEDURE: After informed consent was obtained, and the patient was adequately sedated, Olympus upper endoscope was advanced from mouth into the second portion of duodenum and retroflexion was performed in the stomach. The patient still has bands from last banding in the distal esophagus. There was some ulceration from prior banding. No evidence of any active bleeding at this time. In the stomach, there was severe portal hypertensive gastropathy without any active bleeding. No biopsy was done at this time. At this time, the upper endoscope was retrieved and the procedure was terminated. SUMMARY FINDINGS: 1. There is advanced from prior banding still in the esophagus with some ulceration on the band as already fall enough. 2. Severe portal hypertensive gastropathy. RECOMMENDATIONS: 1. Resume tube feeding. 2. Monitor laboratories. 3. Transfuse as needed. 4. Start octreotide drip. 5. The patient had H. pylori based on last endoscopy. We will plan to treat when the patient gets discharged. Anthony Arndt M.D. DR: ADDI JOB#: [id number] CC:
[2016-07-23] VITALS: BP 109/57
[2016-07-23] MEDS: Pantoprazole 80 MG in NS 250 ML IV SCH ×2 (03:26→13:18)
[2016-07-23] MEDS: Octreotide Acetate 500 MCG in Sodium Chloride 499 ML IV SCH ×2 (03:26→13:18)
[2016-07-23 04:00] VITALS: BP 124/59
[2016-07-23] MEDS: Meropenem 2 GM in NS 110 ML IVPB SCH ×3 (05:17→21:19)
[2016-07-23 05:29] LABS: BASOPHILS % (AUTO) 1.5 % (0.0-2.0); EOSINOPHILS % (AUTO) 7.1 % (0.0-3.0); MEAN CORPUSCULAR HEMOGLOBIN 30.2 PG (27.0-31.0); MEAN CORPUSCULAR HGB CONC 32.5 G/DL (32.0-36.0); MEAN CORPUSCULAR VOLUME 93 FL (80-99); MEAN PLATELET VOLUME 5.5 FL (6.5-10.1); MONOCYTES % (AUTO) 9.1 % (1.0-10.0); NEUTROPHILS % (AUTO) 72.3 % (45.0-75.0); PLATELET COUNT 119 K/UL (150-450); RED CELL DISTRIBUTION WIDTH 18.1 % (11.6-14.8)
[2016-07-23 05:38] LABS: MAGNESIUM 1.7 mg/dL (1.7-2.5); PHOSPHORUS 2.3 mg/dL (2.5-4.8)
[2016-07-23 05:41] LABS: ALANINE AMINOTRANSFERASE 22 U/L (3-41); ALBUMIN/GLOBULIN RATIO 0.3 (1.0-2.7); ANION GAP 14 (5-15); ASPARTATE AMINO TRANSFERASE 28 U/L (5-40); CALCIUM 7.4 mg/dL (8.6-10.2); CARBON DIOXIDE 20 mEQ/L (20-30); CHLORIDE 105 mEQ/L (98-107); CREATININE 0.2 mg/dL (0.7-1.2); GLOMERULAR FILTRATION RATE > 60 mL/min (>60); HEMOLYSIS 15; POTASSIUM 3.4 mEQ/L (3.4-4.9); SODIUM 139 mEQ/L (135-145)
[2016-07-23] MEDS: D5 1/2NS 1,000 ML IV SCH ×2 (05:58→17:51)
[2016-07-23 06:10] LABS: INR 1.5 (0.9-1.1); PROTHROMBIN TIME 15.1 SEC (9.30-11.50)
[2016-07-23 06:51] LABS: BILIRUBIN,DIRECT 0.6 mg/dL (0.1-0.3)
[2016-07-23] MEDS ORDERED: Mylanta II UD 30ml ORAL PRN (07:00)
[2016-07-23] MEDS: DuoNeb 0.5-3(2.5)mg/3ml neb HHN SCH ×3 (07:09→22:51)
[2016-07-23 08:00] VITALS: BP 135/64
[2016-07-23] MEDS: Lactulose 20gm/30ml UDC GT SCH ×4 (08:45→21:20)
[2016-07-23] MEDS: Propranolol 10mg tab GT SCH ×2 (08:45→21:20)
[2016-07-23] MEDS: levETIRAcetam 500mg/5ml Liquid GT SCH ×2 (08:45→21:20)
--- NOTE | 2016-07-23 09:50 | Infectious Diseases Prog Note ---
Assessment/Plan Assessment/Plan ASSESSMENT: 56 y/o male with: // Recent HCAP / VAP - SCx PSA and Pr. Mirabilis - CXR: Slightly improved aeration at the left lung base. // Hx of Polymicrobial ( MRSA, M.morganii ,PSA ) bacteremia 06/02 , repeat BCx :neg , SP Rx - TTE(-) SBE // Hx of Recurrent gross hematuria and recurrent UTI - c // Stage IV sacral debuitus ulcer Wnd Cx : GNR x 2 colonizer // HCV Ab+ // Negative HIV // Elev Alk Ph: - HIDA scan :neg 07/15 // Afebrile without leukocytosis // Elevated ESR, CRP // GI bleed , SP EGD 07/22 : Esophagus ulceration on the band and severe portal hypertensive gastropathy. // Chronic liver disease / cirrhosis with elevated LFTs, US : GB wall thickening ( probably 2nd to ascites ) CT: Liver cirrhosis with stigmata of portal hypertension // Chronic VDRF SP trach, PEG // h/o CVA // [facility] resident // MDRO colonized // NKDA // Full Code PLAN: - continue IV Merrem and Colistin INH d# - f/u cultures ( Bl, Ur, Sp ) - monitor CBC, temperatures - monitor BMP - monitor CXR - vent support, trach care, aspiration precaution - wound care Subjective Constitutional: Denies: anorexia, chills, drenching sweats, fatigue, fever, no symptoms, other Allergies: Coded Allergies: No Known Allergies (Unverified , 06/09/16) Objective Vital Signs Last 24 Hour Vital Signs Date Time Temp Pulse Resp B/P Pulse Ox O2 Delivery O2 Flow Rate FiO2 07/23/16 09:04 74 24 40 07/23/16 08:45 78 135/64 07/23/16 08:00 40 07/23/16 08:00 80 07/23/16 08:00 98.4 78 20 135/64 100 Mechanical Ventilator 40 07/23/16 07:18 78 24 99 Mechanical Ventilator 07/23/16 07:11 78 24 40 07/23/16 07:09 78 24 99 Mechanical Ventilator 07/23/16 05:02 80 22 40 07/23/16 04:00 98.4 80 18 124/59 97 Mechanical Ventilator 07/23/16 04:00 40 07/23/16 04:00 80 07/23/16 03:30 73 21 40 07/23/16 01:30 87 24 40 07/23/16 00:00 98.2 86 24 109/57 100 Mechanical Ventilator 07/23/16 00:00 40 07/23/16 00:00 79 07/22/16 23:40 84 24 99 Mechanical Ventilator 07/22/16 23:30 81 24 40 07/22/16 23:30 83 24 97 Mechanical Ventilator 07/22/16 21:30 87 25 40 07/22/16 21:07 71 115/63 07/22/16 20:00 67 07/22/16 20:00 40 07/22/16 20:00 98.3 71 20 115/63 97 Mechanical Ventilator 40 07/22/16 19:45 88 27 99 Mechanical Ventilator 07/22/16 19:30 85 27 98 Mechanical Ventilator 07/22/16 19:30 82 23 40 07/22/16 16:39 86 22 40 07/22/16 16:00 40 07/22/16 16:00 98.3 67 16 111/54 99 Mechanical Ventilator 40 07/22/16 16:00 68 07/22/16 15:57 63 22 100 Mechanical Ventilator 40 07/22/16 15:43 72 22 98 Mechanical Ventilator 40 07/22/16 14:55 72 19 40 07/22/16 14:15 72 14 100 07/22/16 13:16 74 18 40 07/22/16 12:00 97.8 63 15 102/57 100 Mechanical Ventilator 40 07/22/16 12:00 66 07/22/16 12:00 40 07/22/16 11:03 76 19 40 07/22/16 10:32 60 19 99 Mechanical Ventilator 40 07/22/16 10:21 63 19 99 Mechanical Ventilator 40 Height (Feet): 5 Height (Inches): 2.00 Weight (Pounds): 177 HEENT: atraumatic Respiratory/Chest: normal breath sounds Cardiovascular: regular rhythm Abdomen: non distended Microbiology Date/Time Source Procedure Growth Status 07/21/16 15:42 Blood Blood Culture - Preliminary NO GROWTH AFTER 24 HOURS Resulted 07/21/16 15:30 Blood Blood Culture - Preliminary NO GROWTH AFTER 24 HOURS Resulted 07/21/16 12:30 Urine,Clean Catch Urine Culture - Preliminary Resulted 07/21/16 00:30 Sacral Wound Gram Stain - Final Resulted 07/21/16 00:30 Decubitis Culture - Preliminary Gram Negative Bacillus 1 Gram Negative Bacillus 2 Resulted 07/20/16 23:00 Rectum VRE Culture - Final Enterococcus Faecium - Vre Complete Laboratory Tests Test 07/23/16 03:45 White Blood Count 5.0 K/UL (4.8-10.8) Red Blood Count 3.20 M/UL (4.70-6.10) L Hemoglobin 9.7 G/DL (14.2-18.0) L Hematocrit 29.8 % (42.0-52.0) L Mean Corpuscular Volume 93 FL (80-99) Mean Corpuscular Hemoglobin 30.2 PG (27.0-31.0) Mean Corpuscular Hemoglobin Concent 32.5 G/DL (32.0-36.0) Red Cell Distribution Width 18.1 % (11.6-14.8) H Platelet Count 119 K/UL (150-450) L Mean Platelet Volume 5.5 FL (6.5-10.1) L Neutrophils (%) (Auto) 72.3 % (45.0-75.0) Lymphocytes (%) (Auto) 10.0 % (20.0-45.0) L Monocytes (%) (Auto) 9.1 % (1.0-10.0) Eosinophils (%) (Auto) 7.1 % (0.0-3.0) H Basophils (%) (Auto) 1.5 % (0.0-2.0) Prothrombin Time 15.1 SEC (9.30-11.50) H Prothromb Time International Ratio 1.5 (0.9-1.1) H Activated Partial Thromboplast Time 39 SEC (23-33) H Sodium Level 139 mEQ/L (135-145) Potassium Level 3.4 mEQ/L (3.4-4.9) Chloride Level 105 mEQ/L (98-107) Carbon Dioxide Level 20 mEQ/L (20-30) Anion Gap 14 (5-15) Blood Urea Nitrogen 18 mg/dL (7-23) Creatinine 0.2 mg/dL (0.7-1.2) L Estimat Glomerular Filtration Rate > 60 mL/min (>60) Glucose Level 141 mg/dL (74-106) H Calcium Level 7.4 mg/dL (8.6-10.2) L Phosphorus Level 2.3 mg/dL (2.5-4.8) L Magnesium Level 1.7 mg/dL (1.7-2.5) Total Bilirubin 1.8 mg/dL (0.0-1.2) H Direct Bilirubin 0.6 mg/dL (0.1-0.3) H Aspartate Amino Transf (AST/SGOT) 28 U/L (5-40) Alanine Aminotransferase (ALT/SGPT) 22 U/L (3-41) Alkaline Phosphatase 217 U/L (40-129) H Total Protein 6.0 g/dL (6.6-8.7) L Albumin 1.6 g/dL (3.5-5.2) L Globulin 4.4 g/dL Albumin/Globulin Ratio 0.3 (1.0-2.7) L Current Medications Medications (Trade) Dose Ordered Sig/Hair Route PRN Reason Start Time Stop Time Status Last Admin Dose Admin Acetaminophen (Tylenol) 650 mg Q4H PRN ORAL fever 07/20/16 22:30 08/19/16 22:29 Al Hydroxide/Mg Hydroxide (Mylanta II) 30 ml Q6H PRN GT dyspepsia 07/21/16 18:48 08/19/16 22:29 Al Hydroxide/Mg Hydroxide (Mylanta II) 30 ml Q6H PRN ORAL Gas 07/23/16 07:00 08/22/16 06:59 Albuterol/ Ipratropium 3 ml 3 ml Q8HRT HHN 07/21/16 07:00 07/26/16 06:59 07/23/16 07:09 Colistimethate Sodium 150 mg 150 mg Q12HR@10,22 INH 07/21/16 22:00 07/28/16 21:59 07/22/16 22:09 Dextrose (Dextrose 50%) STAT PRN IV Hypoglycemia 07/20/16 22:30 08/19/16 22:29 Dextrose/Sodium Chloride (D5 0.45% NS) 1,000 ml @ 75 mls/hr [id number] IV 07/20/16 23:30 08/19/16 23:29 07/23/16 05:58 Diphenhydramine HCl (Benadryl) 25 mg Q6H PRN GT Itching/Pruritis 07/21/16 18:48 08/19/16 22:29 Lactulose (Cephulac) 20 gm QID GT 07/21/16 09:00 08/20/16 08:59 07/23/16 08:45 Levetiracetam (Keppra) 1,500 mg Q12HR GT 07/21/16 09:00 08/20/16 08:59 07/23/16 08:45 Lorazepam (Ativan) 1 mg Q6H PRN GT For Anxiety 07/20/16 22:30 07/27/16 22:29 Meropenem/Sodium Chloride (Merrem/Sodium Chloride) 110 ml @ 110 mls/hr Q8HR IVPB 07/21/16 14:00 07/26/16 13:59 07/23/16 05:17 Morphine Sulfate (Morphine Sulfate) 2 mg Q4H PRN IVP severe Pain (Pain Scale 7-10) 07/20/16 22:30 07/27/16 22:29 07/21/16 21:11 Nitroglycerin (Ntg) 0.4 mg Q5M X 3 DOSES PRN SL Prn Chest Pain 07/20/16 22:30 08/19/16 22:29 Octreotide Acetate 500 mcg/ Sodium Chloride 500 ml @ 50 mls/hr Q10H IV 07/21/16 11:00 08/20/16 10:59 07/23/16 03:26 Ondansetron HCl (Zofran) 4 mg Q6H PRN IVP Nausea & Vomiting 07/20/16 22:30 08/19/16 22:29 Pantoprazole/ Sodium Chloride (Protonix/Sodium Chloride) 250 ml @ 25 mls/hr Q10H IV 07/21/16 11:00 08/20/16 10:59 07/23/16 03:26 Propranolol HCl 10 mg 10 mg BID@0900,2100 GT 07/21/16 09:00 08/20/16 08:59 07/23/16 08:45 SHARRI RAMÍREZ M.D. July 23, 2016 09:50
[2016-07-23] MEDS: Colistin for inhalation INH SCH ×2 (10:28→19:41)
--- NOTE | 2016-07-23 11:03 | GI Progress Note ---
Assessment/Plan Problems: (1) Helicobacter pylori (H. pylori) ICD Codes: A04.8 - Other specified bacterial intestinal infections (2) Esophageal varices determined by endoscopy ICD Codes: I85.00 - Esophageal varices without bleeding SNOMED: 99153045, 966319151 (3) Anemia due to blood loss, acute ICD Codes: D62 - Acute posthemorrhagic anemia SNOMED: 840046581 (4) Feeding by G-tube ICD Codes: Z93.1 - Gastrostomy status SNOMED: 544544792, 869266820 (5) Ascites ICD Codes: R18.8 - Other ascites SNOMED: 656514741 (6) Elevated LFTs ICD Codes: R94.5 - Abnormal results of liver function studies SNOMED: 761630566 (7) Liver cirrhosis ICD Codes: K74.60 - Unspecified cirrhosis of liver SNOMED: 97521163 (8) Anemia ICD Codes: D64.9 - Anemia, unspecified SNOMED: 577568979 (9) hep c Status: stable, unchanged Status Narrative Discussed with Dr. Arndt. Assessment/Plan S/P EGD SUMMARY FINDINGS: 1. There is advanced from prior banding still in the esophagus with some ulceration on the band as already fall enough. 2. Severe portal hypertensive gastropathy. RECOMMENDATIONS: 1. Resume tube feeding. 2. Monitor laboratories. 3. Transfuse as needed. 4. Start octreotide drip. 5. The patient had H. pylori based on last endoscopy. We will plan to treat when the patient gets discharged. 6. Paracentesis prn Subjective Subjective limited Objective Last 24 Hour Vital Signs Date Time Temp Pulse Resp B/P Pulse Ox O2 Delivery O2 Flow Rate FiO2 07/23/16 10:30 67 21 40 07/23/16 10:28 67 21 97 Mechanical Ventilator 07/23/16 09:04 74 24 40 07/23/16 08:45 78 135/64 07/23/16 08:00 40 07/23/16 08:00 80 07/23/16 08:00 98.4 78 20 135/64 100 Mechanical Ventilator 40 07/23/16 07:18 78 24 99 Mechanical Ventilator 07/23/16 07:11 78 24 40 07/23/16 07:09 78 24 99 Mechanical Ventilator 07/23/16 05:02 80 22 40 07/23/16 04:00 98.4 80 18 124/59 97 Mechanical Ventilator 07/23/16 04:00 40 07/23/16 04:00 80 07/23/16 03:30 73 21 40 07/23/16 01:30 87 24 40 07/23/16 00:00 98.2 86 24 109/57 100 Mechanical Ventilator 07/23/16 00:00 40 07/23/16 00:00 79 07/22/16 23:40 84 24 99 Mechanical Ventilator 07/22/16 23:30 81 24 40 07/22/16 23:30 83 24 97 Mechanical Ventilator 07/22/16 21:30 87 25 40 07/22/16 21:07 71 115/63 07/22/16 20:00 67 07/22/16 20:00 40 07/22/16 20:00 98.3 71 20 115/63 97 Mechanical Ventilator 40 07/22/16 19:45 88 27 99 Mechanical Ventilator 07/22/16 19:30 85 27 98 Mechanical Ventilator 07/22/16 19:30 82 23 40 07/22/16 16:39 86 22 40 07/22/16 16:00 40 07/22/16 16:00 98.3 67 16 111/54 99 Mechanical Ventilator 40 07/22/16 16:00 68 07/22/16 15:57 63 22 100 Mechanical Ventilator 40 07/22/16 15:43 72 22 98 Mechanical Ventilator 40 07/22/16 14:55 72 19 40 07/22/16 14:15 72 14 100 07/22/16 13:16 74 18 40 07/22/16 12:00 97.8 63 15 102/57 100 Mechanical Ventilator 40 07/22/16 12:00 66 07/22/16 12:00 40 07/22/16 11:03 76 19 40 Intake and Output 07/22/16 07/23/16 19:00 07:00 Intake Total 2289 ml 2232.50 ml Output Total 250 ml 350 ml Balance 2039 ml 1882.50 ml Intake Free Water 150 ml 150 ml IV Total 2019 ml 1872.50 ml Tube Feeding 120 ml 210 ml Output Urine Total 250 ml 350 ml Laboratory Tests Test 07/23/16 03:45 White Blood Count 5.0 K/UL (4.8-10.8) Red Blood Count 3.20 M/UL (4.70-6.10) L Hemoglobin 9.7 G/DL (14.2-18.0) L Hematocrit 29.8 % (42.0-52.0) L Mean Corpuscular Volume 93 FL (80-99) Mean Corpuscular Hemoglobin 30.2 PG (27.0-31.0) Mean Corpuscular Hemoglobin Concent 32.5 G/DL (32.0-36.0) Red Cell Distribution Width 18.1 % (11.6-14.8) H Platelet Count 119 K/UL (150-450) L Mean Platelet Volume 5.5 FL (6.5-10.1) L Neutrophils (%) (Auto) 72.3 % (45.0-75.0) Lymphocytes (%) (Auto) 10.0 % (20.0-45.0) L Monocytes (%) (Auto) 9.1 % (1.0-10.0) Eosinophils (%) (Auto) 7.1 % (0.0-3.0) H Basophils (%) (Auto) 1.5 % (0.0-2.0) Prothrombin Time 15.1 SEC (9.30-11.50) H Prothromb Time International Ratio 1.5 (0.9-1.1) H Activated Partial Thromboplast Time 39 SEC (23-33) H Sodium Level 139 mEQ/L (135-145) Potassium Level 3.4 mEQ/L (3.4-4.9) Chloride Level 105 mEQ/L (98-107) Carbon Dioxide Level 20 mEQ/L (20-30) Anion Gap 14 (5-15) Blood Urea Nitrogen 18 mg/dL (7-23) Creatinine 0.2 mg/dL (0.7-1.2) L Estimat Glomerular Filtration Rate > 60 mL/min (>60) Glucose Level 141 mg/dL (74-106) H Calcium Level 7.4 mg/dL (8.6-10.2) L Phosphorus Level 2.3 mg/dL (2.5-4.8) L Magnesium Level 1.7 mg/dL (1.7-2.5) Total Bilirubin 1.8 mg/dL (0.0-1.2) H Direct Bilirubin 0.6 mg/dL (0.1-0.3) H Aspartate Amino Transf (AST/SGOT) 28 U/L (5-40) Alanine Aminotransferase (ALT/SGPT) 22 U/L (3-41) Alkaline Phosphatase 217 U/L (40-129) H Total Protein 6.0 g/dL (6.6-8.7) L Albumin 1.6 g/dL (3.5-5.2) L Globulin 4.4 g/dL Albumin/Globulin Ratio 0.3 (1.0-2.7) L Height (Feet): 5 Height (Inches): 2.00 Weight (Pounds): 177 General Appearance: no apparent distress, alert Cardiovascular: normal rate Respiratory/Chest: other - mech vent Abdominal Exam: GT site - c/d/i Paulette Romero N.P. July 23, 2016 11:03
--- NOTE | 2016-07-23 11:38 | Diagnostic Imaging Report ---
APPROVED REPORT CPT Code: 41531 Present Symptoms Shortness of breath BILATERAL: Imaging reveals a patent deep venous system bilaterally. There is no evidence of thrombus within the femoral, popliteal or tibial segments. The greater saphenous veins are also within normal limits. Doppler indicates normal spontaneous flow within these segments. INCIDENTAL FINDINGS: Imaging of the right popliteal fossa reveals a Bakers cyst measuring approximately 2.5 x 1.4 cm.
--- NOTE | 2016-07-23 11:52 | Pulmonology Progress Note ---
Assessment/Plan Problems: (1) Gastrointestinal hemorrhage (2) Chronic respiratory failure (3) Liver cirrhosis (4) Feeding by G-tube (5) Ascites Assessment/Plan still has dark stoos IV fluids check h/h endoscopy showed ulcers around old varicces on Octreotide drip check electrolytes. Subjective ROS Limited/Unobtainable: No Constitutional: Reports: no symptoms HEENT: Repors: no symptoms Respiratory: Reports: no symptoms Allergies: Coded Allergies: No Known Allergies (Unverified , 06/09/16) Objective Last 24 Hour Vital Signs Date Time Temp Pulse Resp B/P Pulse Ox O2 Delivery O2 Flow Rate FiO2 07/23/16 10:30 67 21 40 07/23/16 10:28 67 21 97 Mechanical Ventilator 07/23/16 09:04 74 24 40 07/23/16 08:45 78 135/64 07/23/16 08:00 40 07/23/16 08:00 80 07/23/16 08:00 98.4 78 20 135/64 100 Mechanical Ventilator 40 07/23/16 07:18 78 24 99 Mechanical Ventilator 07/23/16 07:11 78 24 40 07/23/16 07:09 78 24 99 Mechanical Ventilator 07/23/16 05:02 80 22 40 07/23/16 04:00 98.4 80 18 124/59 97 Mechanical Ventilator 07/23/16 04:00 40 07/23/16 04:00 80 07/23/16 03:30 73 21 40 07/23/16 01:30 87 24 40 07/23/16 00:00 98.2 86 24 109/57 100 Mechanical Ventilator 07/23/16 00:00 40 07/23/16 00:00 79 07/22/16 23:40 84 24 99 Mechanical Ventilator 07/22/16 23:30 81 24 40 07/22/16 23:30 83 24 97 Mechanical Ventilator 07/22/16 21:30 87 25 40 07/22/16 21:07 71 115/63 07/22/16 20:00 67 07/22/16 20:00 40 07/22/16 20:00 98.3 71 20 115/63 97 Mechanical Ventilator 40 07/22/16 19:45 88 27 99 Mechanical Ventilator 07/22/16 19:30 85 27 98 Mechanical Ventilator 07/22/16 19:30 82 23 40 07/22/16 16:39 86 22 40 07/22/16 16:00 40 07/22/16 16:00 98.3 67 16 111/54 99 Mechanical Ventilator 40 07/22/16 16:00 68 07/22/16 15:57 63 22 100 Mechanical Ventilator 40 07/22/16 15:43 72 22 98 Mechanical Ventilator 40 07/22/16 14:55 72 19 40 07/22/16 14:15 72 14 100 07/22/16 13:16 74 18 40 07/22/16 12:00 97.8 63 15 102/57 100 Mechanical Ventilator 40 07/22/16 12:00 66 07/22/16 12:00 40 Intake and Output 07/22/16 07/23/16 19:00 07:00 Intake Total 2289 ml 2232.50 ml Output Total 250 ml 350 ml Balance 2039 ml 1882.50 ml Intake Free Water 150 ml 150 ml IV Total 2019 ml 1872.50 ml Tube Feeding 120 ml 210 ml Output Urine Total 250 ml 350 ml General Appearance: WD/WN HEENT: normocephalic, atraumatic Respiratory/Chest: chest wall non-tender, lungs clear Cardiovascular: normal peripheral pulses, normal rate Abdomen: normal bowel sounds, soft, non tender Extremities: no cyanosis, no clubbing 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, no motor/sensory deficits Microbiology Date/Time Source Procedure Growth Status 07/21/16 15:42 Blood Blood Culture - Preliminary NO GROWTH AFTER 24 HOURS Resulted 07/21/16 15:30 Blood Blood Culture - Preliminary NO GROWTH AFTER 24 HOURS Resulted 07/21/16 12:30 Urine,Clean Catch Urine Culture - Preliminary Yeast Species Resulted 07/21/16 00:30 Sacral Wound Gram Stain - Final Resulted 07/21/16 00:30 Decubitis Culture - Preliminary Klebsiella Pneumoniae - Mdr Gram Negative Bacillus 2 Resulted 07/20/16 23:00 Rectum VRE Culture - Final Enterococcus Faecium - Vre Complete Laboratory Tests 07/23/16 03:45: White Blood Count 5.0, Red Blood Count 3.20L, Hemoglobin 9.7L, Hematocrit 29.8L , Mean Corpuscular Volume 93, Mean Corpuscular Hemoglobin 30.2, Mean Corpuscular Hemoglobin Concent 32.5, Red Cell Distribution Width 18.1H, Platelet Count 119L, Mean Platelet Volume 5.5L, Neutrophils (%) (Auto) 72.3, Lymphocytes (%) (Auto) 10.0L, Monocytes (%) (Auto) 9.1, Eosinophils (%) (Auto) 7.1H, Basophils (%) (Auto) 1.5, Prothrombin Time 15.1H, Prothromb Time International Ratio 1.5H, Activated Partial Thromboplast Time 39H, Sodium Level 139, Potassium Level 3.4, Chloride Level 105, Carbon Dioxide Level 20, Anion Gap 14, Blood Urea Nitrogen 18, Creatinine 0.2L, Estimat Glomerular Filtration Rate > 60, Glucose Level 141H, Calcium Level 7.4L, Phosphorus Level 2.3L, Magnesium Level 1.7, Total Bilirubin 1.8H, Direct Bilirubin 0.6H, Aspartate Amino Transf (AST/SGOT) 28, Alanine Aminotransferase (ALT/SGPT) 22, Alkaline Phosphatase 217H, Total Protein 6.0L, Albumin 1.6L, Globulin 4.4, Albumin/ Globulin Ratio 0.3L Current Medications Medications (Trade) Dose Ordered Sig/Hair Route PRN Reason Start Time Stop Time Status Last Admin Dose Admin Acetaminophen (Tylenol) 650 mg Q4H PRN ORAL fever 07/20/16 22:30 08/19/16 22:29 Al Hydroxide/Mg Hydroxide (Mylanta II) 30 ml Q6H PRN GT dyspepsia 07/21/16 18:48 08/19/16 22:29 Al Hydroxide/Mg Hydroxide 30 ml 30 ml Q6H PRN ORAL Gas 07/23/16 07:00 08/22/16 06:59 Albuterol/ Ipratropium 3 ml 3 ml Q8HRT HHN 07/21/16 07:00 07/26/16 06:59 07/23/16 07:09 Colistimethate Sodium 150 mg 150 mg Q12HR@10,22 INH 07/21/16 22:00 07/28/16 21:59 07/23/16 10:28 Dextrose (Dextrose 50%) STAT PRN IV Hypoglycemia 07/20/16 22:30 08/19/16 22:29 Dextrose/Sodium Chloride (D5 0.45% NS) 1,000 ml @ 75 mls/hr [id number] IV 07/20/16 23:30 08/19/16 23:29 07/23/16 05:58 Diphenhydramine HCl (Benadryl) 25 mg Q6H PRN GT Itching/Pruritis 07/21/16 18:48 08/19/16 22:29 Lactulose (Cephulac) 20 gm QID GT 07/21/16 09:00 08/20/16 08:59 07/23/16 08:45 Levetiracetam (Keppra) 1,500 mg Q12HR GT 07/21/16 09:00 08/20/16 08:59 07/23/16 08:45 Lorazepam (Ativan) 1 mg Q6H PRN GT For Anxiety 07/20/16 22:30 07/27/16 22:29 Meropenem/Sodium Chloride (Merrem/Sodium Chloride) 110 ml @ 110 mls/hr Q8HR IVPB 07/21/16 14:00 07/26/16 13:59 07/23/16 05:17 Morphine Sulfate (Morphine Sulfate) 2 mg Q4H PRN IVP severe Pain (Pain Scale 7-10) 07/20/16 22:30 07/27/16 22:29 07/21/16 21:11 Nitroglycerin (Ntg) 0.4 mg Q5M X 3 DOSES PRN SL Prn Chest Pain 07/20/16 22:30 08/19/16 22:29 Octreotide Acetate 500 mcg/ Sodium Chloride 500 ml @ 50 mls/hr Q10H IV 07/21/16 11:00 08/20/16 10:59 07/23/16 03:26 Ondansetron HCl (Zofran) 4 mg Q6H PRN IVP Nausea & Vomiting 07/20/16 22:30 08/19/16 22:29 Pantoprazole/ Sodium Chloride (Protonix/Sodium Chloride) 250 ml @ 25 mls/hr Q10H IV 07/21/16 11:00 08/20/16 10:59 07/23/16 03:26 Phytonadione/ Dextrose (Vitamin K/D5W) 56 ml @ 112 mls/hr ONCE ONCE IVPB 07/23/16 11:45 07/23/16 12:14 UNV Propranolol HCl 10 mg 10 mg BID@0900,2100 GT 07/21/16 09:00 08/20/16 08:59 07/23/16 08:45 Sodium Phosphate 30 mm/Sodium Chloride 285 ml @ 47.5 mls/hr ONCE ONCE IVPB 07/23/16 12:30 07/23/16 18:29 DANTE HSIEH July 23, 2016 11:52
[2016-07-23 12:00] VITALS: BP 103/68
[2016-07-23] MEDS ORDERED: Sodium Phosphate 30 MM in NS 275 ML IVPB ONE (12:30)
[2016-07-23] MEDS: Morphine Sulfate 2mg/ml Inj IVP PRN (13:18)
[2016-07-23] MEDS ORDERED: Phytonadione 10 MG in D5W 55 ML IVPB ONE (13:30)
[2016-07-23 16:00] VITALS: BP 103/67
[2016-07-23 20:00] VITALS: BP 130/53
--- NOTE | 2016-07-23 20:41 | 48 Hour Post Anesthesia Eval ---
Post Anesthesia Evaluation Procedure: egd Date of Evaluation: July 23, 2016 Time of Evaluation: 20:39 Blood Pressure Systolic: 103 0: 67 Pulse Rate: 90 Respiratory Rate: 18 Temperature (Fahrenheit): 97.1 O2 Sat by Pulse Oximetry: 99 Airway: other - t-piece mechanical ventilation Nausea: No Vomiting: No Pain Intensity: 0 Hydration Status: adequate Cardiopulmonary Status: stable Mental Status/LOC: patient returned to baseline Post-Anesthesia Complications: none Follow-up care needed: N/A LOUISA BERMUDEZ July 23, 2016 20:41
[2016-07-24] VITALS: BP 102/64
[2016-07-24 04:00] VITALS: BP 99/58
[2016-07-24] MEDS: Meropenem 2 GM in NS 110 ML IVPB SCH ×3 (05:11→21:44)
[2016-07-24 05:12] LABS: EOSINOPHILS % (AUTO) 5.8 % (0.0-3.0); LYMPHOCYTES % (AUTO) 11.5 % (20.0-45.0); MEAN CORPUSCULAR HEMOGLOBIN 31.3 PG (27.0-31.0); MEAN CORPUSCULAR HGB CONC 33.3 G/DL (32.0-36.0); MEAN CORPUSCULAR VOLUME 94 FL (80-99); MEAN PLATELET VOLUME 5.5 FL (6.5-10.1); MONOCYTES % (AUTO) 8.3 % (1.0-10.0); NEUTROPHILS % (AUTO) 73.4 % (45.0-75.0); PLATELET COUNT 187 K/UL (150-450); RED BLOOD COUNT 2.69 M/UL (4.70-6.10); RED CELL DISTRIBUTION WIDTH 18.5 % (11.6-14.8); WHITE BLOOD COUNT 8.7 K/UL (4.8-10.8)
[2016-07-24 05:22] LABS: INR 1.5 (0.9-1.1); PROTHROMBIN TIME 15.4 SEC (9.30-11.50)
[2016-07-24 05:48] LABS: ALANINE AMINOTRANSFERASE 19 U/L (3-41); ALBUMIN/GLOBULIN RATIO 0.4 (1.0-2.7); ANION GAP 15 (5-15); ASPARTATE AMINO TRANSFERASE 30 U/L (5-40); CALCIUM 7.4 mg/dL (8.6-10.2); CARBON DIOXIDE 18 mEQ/L (20-30); CHLORIDE 109 mEQ/L (98-107); CREATININE < 0.2 mg/dL (0.7-1.2); GLOMERULAR FILTRATION RATE > 60 mL/min (>60); HEMOLYSIS 27; PHOSPHORUS 2.7 mg/dL (2.5-4.8); POTASSIUM 3.8 mEQ/L (3.4-4.9); SODIUM 142 mEQ/L (135-145); TOTAL PROTEIN 5.9 g/dL (6.6-8.7)
[2016-07-24 06:27] LABS: BILIRUBIN,DIRECT 0.6 mg/dL (0.1-0.3)
[2016-07-24] MEDS: DuoNeb 0.5-3(2.5)mg/3ml neb HHN SCH ×3 (07:22→22:56)
[2016-07-24 08:00] VITALS: BP 95/58
[2016-07-24] MEDS: D5 1/2NS 1,000 ML IV SCH ×2 (08:38→20:39)
[2016-07-24] MEDS: Lactulose 20gm/30ml UDC GT SCH ×4 (08:39→22:16)
[2016-07-24] MEDS: levETIRAcetam 500mg/5ml Liquid GT SCH ×2 (08:39→22:17)
[2016-07-24] MEDS: Octreotide Acetate 500 MCG in Sodium Chloride 499 ML IV SCH ×4 (08:40→20:39)
[2016-07-24] MEDS: Pantoprazole 80 MG in NS 250 ML IV SCH ×4 (08:41→20:39)
[2016-07-24] MEDS: Propranolol 10mg tab GT SCH ×2 (09:00→22:16)
[2016-07-24] MEDS: Colistin for inhalation INH SCH ×2 (09:43→22:58)
--- NOTE | 2016-07-24 11:55 | Infectious Diseases Prog Note ---
Assessment/Plan Assessment/Plan ASSESSMENT: 56 y/o male with: // Recent HCAP / VAP - repeat SPcx: GNR x 2 - SCx PSA and Pr. Mirabilis - CXR: Slightly improved aeration at the left lung base. // Hx of Polymicrobial ( MRSA, M.morganii ,PSA ) bacteremia 06/02 , repeat BCx :neg , SP Rx - TTE(-) SBE // Hx of Recurrent gross hematuria and recurrent UTI - UCx : Sonja ( Colonizer ) // Stage IV sacral debuitus ulcer Wnd Cx : GNR x 2 colonizer // HCV Ab+ // Negative HIV // Elev Alk Ph: - HIDA scan :neg 07/15 // Afebrile without leukocytosis // Elevated ESR, CRP // GI bleed , SP EGD 07/22 : Esophagus ulceration on the band and severe portal hypertensive gastropathy. // Chronic liver disease / cirrhosis with elevated LFTs, US : GB wall thickening ( probably 2nd to ascites ) CT: Liver cirrhosis with stigmata of portal hypertension // Chronic VDRF SP trach, PEG // h/o CVA // [facility] resident // MDRO colonized // NKDA // Full Code PLAN: - continue IV Merrem and Colistin INH d# - f/u cultures ( Bl, Ur, Sp ) - monitor CBC, temperatures - monitor BMP - monitor CXR - vent support, trach care, aspiration precaution - wound care Subjective Allergies: Coded Allergies: No Known Allergies (Unverified , 06/09/16) Objective Vital Signs Last 24 Hour Vital Signs Date Time Temp Pulse Resp B/P Pulse Ox O2 Delivery O2 Flow Rate FiO2 07/24/16 11:17 91 19 40 07/24/16 09:54 88 18 100 Mechanical Ventilator 07/24/16 09:43 89 14 100 Mechanical Ventilator 40 07/24/16 09:17 92 18 40 07/24/16 09:00 88 95/58 07/24/16 08:00 92 07/24/16 08:00 40 07/24/16 08:00 97.3 90 22 95/58 98 Mechanical Ventilator 40 07/24/16 07:29 90 20 100 Mechanical Ventilator 07/24/16 07:22 90 16 40 07/24/16 07:22 90 16 100 Mechanical Ventilator 07/24/16 05:11 91 20 40 07/24/16 04:00 40 07/24/16 04:00 97.5 94 20 99/58 100 Mechanical Ventilator 07/24/16 04:00 99 07/24/16 03:05 92 22 40 07/24/16 01:18 92 18 40 07/24/16 00:00 91 07/24/16 00:00 98.4 88 14 102/64 100 Mechanical Ventilator 07/24/16 00:00 40 07/23/16 23:18 96 22 99 Mechanical Ventilator 07/23/16 23:03 94 25 98 Mechanical Ventilator 07/23/16 23:02 94 25 40 07/23/16 22:00 93 07/23/16 21:20 90 103/67 07/23/16 21:00 95 24 40 07/23/16 20:41 90 18 99 07/23/16 20:00 99.0 97 25 130/53 99 Mechanical Ventilator 07/23/16 20:00 40 07/23/16 19:53 86 22 99 Mechanical Ventilator 07/23/16 19:42 92 22 100 Mechanical Ventilator 40 07/23/16 19:20 88 23 40 07/23/16 17:20 96 22 40 07/23/16 16:00 40 07/23/16 16:00 97.1 90 18 103/67 100 Mechanical Ventilator 07/23/16 16:00 90 07/23/16 15:03 76 22 99 Mechanical Ventilator 07/23/16 14:56 95 26 40 07/23/16 14:55 95 26 96 Mechanical Ventilator 07/23/16 14:00 98.4 07/23/16 13:21 73 24 40 07/23/16 12:00 40 07/23/16 12:00 103.0 77 18 103/68 95 07/23/16 12:00 80 07/23/16 11:59 80 Height (Feet): 5 Height (Inches): 2.00 Weight (Pounds): 177 Microbiology Date/Time Source Procedure Growth Status 07/21/16 15:42 Blood Blood Culture - Preliminary NO GROWTH AFTER 48 HOURS Resulted 07/21/16 15:30 Blood Blood Culture - Preliminary NO GROWTH AFTER 48 HOURS Resulted 07/22/16 06:00 Sputum Gram Stain - Final Resulted 07/22/16 06:00 Sputum Culture - Preliminary Gram Negative Bacillus 1 Gram Negative Bacillus 2 Resulted 07/21/16 12:30 Urine,Clean Catch Urine Culture - Final Sonja Tropicalis Complete Laboratory Tests Test 07/24/16 03:40 White Blood Count 8.7 K/UL (4.8-10.8) # Red Blood Count 2.69 M/UL (4.70-6.10) L Hemoglobin 8.4 G/DL (14.2-18.0) L Hematocrit 25.2 % (42.0-52.0) L Mean Corpuscular Volume 94 FL (80-99) Mean Corpuscular Hemoglobin 31.3 PG (27.0-31.0) H Mean Corpuscular Hemoglobin Concent 33.3 G/DL (32.0-36.0) Red Cell Distribution Width 18.5 % (11.6-14.8) H Platelet Count 187 K/UL (150-450) # Mean Platelet Volume 5.5 FL (6.5-10.1) L Neutrophils (%) (Auto) 73.4 % (45.0-75.0) Lymphocytes (%) (Auto) 11.5 % (20.0-45.0) L Monocytes (%) (Auto) 8.3 % (1.0-10.0) Eosinophils (%) (Auto) 5.8 % (0.0-3.0) H Basophils (%) (Auto) 1.0 % (0.0-2.0) Prothrombin Time 15.4 SEC (9.30-11.50) H Prothromb Time International Ratio 1.5 (0.9-1.1) H Activated Partial Thromboplast Time 34 SEC (23-33) H Sodium Level 142 mEQ/L (135-145) Potassium Level 3.8 mEQ/L (3.4-4.9) Chloride Level 109 mEQ/L (98-107) H Carbon Dioxide Level 18 mEQ/L (20-30) L Anion Gap 15 (5-15) Blood Urea Nitrogen 15 mg/dL (7-23) Creatinine < 0.2 mg/dL (0.7-1.2) L Estimat Glomerular Filtration Rate > 60 mL/min (>60) Glucose Level 124 mg/dL (74-106) H Calcium Level 7.4 mg/dL (8.6-10.2) L Phosphorus Level 2.7 mg/dL (2.5-4.8) Magnesium Level 1.7 mg/dL (1.7-2.5) Total Bilirubin 2.1 mg/dL (0.0-1.2) H Direct Bilirubin 0.6 mg/dL (0.1-0.3) H Aspartate Amino Transf (AST/SGOT) 30 U/L (5-40) Alanine Aminotransferase (ALT/SGPT) 19 U/L (3-41) Alkaline Phosphatase 184 U/L (40-129) H Total Protein 5.9 g/dL (6.6-8.7) L Albumin 1.7 g/dL (3.5-5.2) L Globulin 4.2 g/dL Albumin/Globulin Ratio 0.4 (1.0-2.7) L Current Medications Medications (Trade) Dose Ordered Sig/Hair Route PRN Reason Start Time Stop Time Status Last Admin Dose Admin Acetaminophen (Tylenol) 650 mg Q4H PRN ORAL fever 07/20/16 22:30 08/19/16 22:29 Al Hydroxide/Mg Hydroxide (Mylanta II) 30 ml Q6H PRN GT dyspepsia 07/21/16 18:48 08/19/16 22:29 Al Hydroxide/Mg Hydroxide (Mylanta II) 30 ml Q6H PRN ORAL Gas 07/23/16 07:00 08/22/16 06:59 Albuterol/ Ipratropium 3 ml 3 ml Q8HRT HHN 07/21/16 07:00 07/26/16 06:59 07/24/16 07:22 Colistimethate Sodium 150 mg 150 mg Q12HR@10,22 INH 07/21/16 22:00 07/28/16 21:59 07/24/16 09:43 Dextrose (Dextrose 50%) STAT PRN IV Hypoglycemia 07/20/16 22:30 08/19/16 22:29 Dextrose/Sodium Chloride (D5 0.45% NS) 1,000 ml @ 75 mls/hr [id number] IV 07/20/16 23:30 08/19/16 23:29 07/24/16 08:38 Diphenhydramine HCl (Benadryl) 25 mg Q6H PRN GT Itching/Pruritis 07/21/16 18:48 08/19/16 22:29 Lactulose (Cephulac) 20 gm QID GT 07/21/16 09:00 08/20/16 08:59 07/24/16 08:39 Levetiracetam (Keppra) 1,500 mg Q12HR GT 07/21/16 09:00 08/20/16 08:59 07/24/16 08:39 Lorazepam (Ativan) 1 mg Q6H PRN GT For Anxiety 07/20/16 22:30 07/27/16 22:29 Meropenem/Sodium Chloride (Merrem/Sodium Chloride) 110 ml @ 110 mls/hr Q8HR IVPB 07/21/16 14:00 07/26/16 13:59 07/24/16 05:11 Morphine Sulfate (Morphine Sulfate) 2 mg Q4H PRN IVP severe Pain (Pain Scale 7-10) 07/20/16 22:30 07/27/16 22:29 07/23/16 13:18 Nitroglycerin (Ntg) 0.4 mg Q5M X 3 DOSES PRN SL Prn Chest Pain 07/20/16 22:30 08/19/16 22:29 Octreotide Acetate 500 mcg/ Sodium Chloride 500 ml @ 50 mls/hr Q10H IV 07/21/16 11:00 08/20/16 10:59 07/24/16 08:40 Ondansetron HCl (Zofran) 4 mg Q6H PRN IVP Nausea & Vomiting 07/20/16 22:30 08/19/16 22:29 Pantoprazole/ Sodium Chloride (Protonix/Sodium Chloride) 250 ml @ 25 mls/hr Q10H IV 07/21/16 11:00 08/20/16 10:59 07/24/16 08:41 Propranolol HCl 10 mg 10 mg BID@0900,2100 GT 07/21/16 09:00 08/20/16 08:59 07/23/16 21:20 SHARRI RAMÍREZ M.D. July 24, 2016 11:55
[2016-07-24 12:00] VITALS: BP 118/74
--- NOTE | 2016-07-24 12:05 | Pulmonology Progress Note ---
Assessment/Plan Problems: (1) Gastrointestinal hemorrhage (2) Chronic respiratory failure (3) Liver cirrhosis (4) Feeding by G-tube (5) Ascites Assessment/Plan getting paracentesis today IV fluids check h/h endoscopy showed ulcers around old varicces on Octreotide drip check electrolytes. Subjective ROS Limited/Unobtainable: No Interval Events: comfortable Allergies: Coded Allergies: No Known Allergies (Unverified , 06/09/16) Objective Last 24 Hour Vital Signs Date Time Temp Pulse Resp B/P Pulse Ox O2 Delivery O2 Flow Rate FiO2 07/24/16 11:17 91 19 40 07/24/16 09:54 88 18 100 Mechanical Ventilator 07/24/16 09:43 89 14 100 Mechanical Ventilator 40 07/24/16 09:17 92 18 40 07/24/16 09:00 88 95/58 07/24/16 08:00 92 07/24/16 08:00 40 07/24/16 08:00 97.3 90 22 95/58 98 Mechanical Ventilator 40 07/24/16 07:29 90 20 100 Mechanical Ventilator 07/24/16 07:22 90 16 40 07/24/16 07:22 90 16 100 Mechanical Ventilator 07/24/16 05:11 91 20 40 07/24/16 04:00 40 07/24/16 04:00 97.5 94 20 99/58 100 Mechanical Ventilator 07/24/16 04:00 99 07/24/16 03:05 92 22 40 07/24/16 01:18 92 18 40 07/24/16 00:00 91 07/24/16 00:00 98.4 88 14 102/64 100 Mechanical Ventilator 07/24/16 00:00 40 07/23/16 23:18 96 22 99 Mechanical Ventilator 07/23/16 23:03 94 25 98 Mechanical Ventilator 07/23/16 23:02 94 25 40 07/23/16 22:00 93 07/23/16 21:20 90 103/67 07/23/16 21:00 95 24 40 07/23/16 20:41 90 18 99 07/23/16 20:00 99.0 97 25 130/53 99 Mechanical Ventilator 07/23/16 20:00 40 07/23/16 19:53 86 22 99 Mechanical Ventilator 07/23/16 19:42 92 22 100 Mechanical Ventilator 40 5/25/17 19:20 88 23 40 07/23/16 17:20 96 22 40 07/23/16 16:00 40 07/23/16 16:00 97.1 90 18 103/67 100 Mechanical Ventilator 07/23/16 16:00 90 07/23/16 15:03 76 22 99 Mechanical Ventilator 07/23/16 14:56 95 26 40 07/23/16 14:55 95 26 96 Mechanical Ventilator 07/23/16 14:00 98.4 07/23/16 13:21 73 24 40 Intake and Output 07/23/16 07/24/16 19:00 07:00 Intake Total 2018.75 ml 1175 ml Output Total 200 ml 425 ml Balance 1818.75 ml 750 ml IV Total 1838.75 ml 935 ml Other 180 ml 240 ml Output Urine Total 200 ml 300 ml Stool Total 125 ml # Bowel Movements 100 General Appearance: WD/WN HEENT: normocephalic, atraumatic Respiratory/Chest: chest wall non-tender, lungs clear Cardiovascular: normal peripheral pulses Abdomen: normal bowel sounds, soft, non tender Extremities: no clubbing 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, no motor/sensory deficits Lymphatic: no neck adenopathy Microbiology Date/Time Source Procedure Growth Status 07/21/16 15:42 Blood Blood Culture - Preliminary NO GROWTH AFTER 48 HOURS Resulted 07/21/16 15:30 Blood Blood Culture - Preliminary NO GROWTH AFTER 48 HOURS Resulted 07/22/16 06:00 Sputum Gram Stain - Final Resulted 07/22/16 06:00 Sputum Culture - Preliminary Gram Negative Bacillus 1 Gram Negative Bacillus 2 Resulted 07/21/16 12:30 Urine,Clean Catch Urine Culture - Final Sonja Tropicalis Complete Laboratory Tests 07/24/16 03:40: White Blood Count 8.7#, Red Blood Count 2.69L, Hemoglobin 8.4L, Hematocrit 25.2L , Mean Corpuscular Volume 94, Mean Corpuscular Hemoglobin 31.3H, Mean Corpuscular Hemoglobin Concent 33.3, Red Cell Distribution Width 18.5H, Platelet Count 187#, Mean Platelet Volume 5.5L, Neutrophils (%) (Auto) 73.4, Lymphocytes (%) (Auto) 11.5L, Monocytes (%) (Auto) 8.3, Eosinophils (%) (Auto) 5.8H, Basophils (%) (Auto) 1.0, Prothrombin Time 15.4H, Prothromb Time International Ratio 1.5H, Activated Partial Thromboplast Time 34H, Sodium Level 142, Potassium Level 3.8, Chloride Level 109H, Carbon Dioxide Level 18L, Anion Gap 15, Blood Urea Nitrogen 15, Creatinine < 0.2L, Estimat Glomerular Filtration Rate > 60, Glucose Level 124H, Calcium Level 7.4L, Phosphorus Level 2.7, Magnesium Level 1.7, Total Bilirubin 2.1H, Direct Bilirubin 0.6H, Aspartate Amino Transf (AST/SGOT) 30, Alanine Aminotransferase (ALT/SGPT) 19, Alkaline Phosphatase 184H, Total Protein 5.9L, Albumin 1.7L, Globulin 4.2, Albumin/Globulin Ratio 0.4L Current Medications Medications (Trade) Dose Ordered Sig/Hair Route PRN Reason Start Time Stop Time Status Last Admin Dose Admin Acetaminophen (Tylenol) 650 mg Q4H PRN ORAL fever 07/20/16 22:30 08/19/16 22:29 Al Hydroxide/Mg Hydroxide (Mylanta II) 30 ml Q6H PRN GT dyspepsia 07/21/16 18:48 08/19/16 22:29 Al Hydroxide/Mg Hydroxide (Mylanta II) 30 ml Q6H PRN ORAL Gas 07/23/16 07:00 08/22/16 06:59 Albuterol/ Ipratropium 3 ml 3 ml Q8HRT HHN 07/21/16 07:00 07/26/16 06:59 07/24/16 07:22 Colistimethate Sodium 150 mg 150 mg Q12HR@10,22 INH 07/21/16 22:00 07/28/16 21:59 07/24/16 09:43 Dextrose (Dextrose 50%) STAT PRN IV Hypoglycemia 07/20/16 22:30 08/19/16 22:29 Dextrose/Sodium Chloride (D5 0.45% NS) 1,000 ml @ 75 mls/hr [id number] IV 07/20/16 23:30 08/19/16 23:29 07/24/16 08:38 Diphenhydramine HCl (Benadryl) 25 mg Q6H PRN GT Itching/Pruritis 07/21/16 18:48 08/19/16 22:29 Lactulose (Cephulac) 20 gm QID GT 07/21/16 09:00 08/20/16 08:59 07/24/16 08:39 Levetiracetam (Keppra) 1,500 mg Q12HR GT 07/21/16 09:00 08/20/16 08:59 07/24/16 08:39 Lorazepam (Ativan) 1 mg Q6H PRN GT For Anxiety 07/20/16 22:30 07/27/16 22:29 Meropenem/Sodium Chloride (Merrem/Sodium Chloride) 110 ml @ 110 mls/hr Q8HR IVPB 07/21/16 14:00 07/26/16 13:59 07/24/16 05:11 Morphine Sulfate (Morphine Sulfate) 2 mg Q4H PRN IVP severe Pain (Pain Scale 7-10) 07/20/16 22:30 07/27/16 22:29 07/23/16 13:18 Nitroglycerin (Ntg) 0.4 mg Q5M X 3 DOSES PRN SL Prn Chest Pain 07/20/16 22:30 08/19/16 22:29 Octreotide Acetate 500 mcg/ Sodium Chloride 500 ml @ 50 mls/hr Q10H IV 07/21/16 11:00 08/20/16 10:59 07/24/16 08:40 Ondansetron HCl (Zofran) 4 mg Q6H PRN IVP Nausea & Vomiting 07/20/16 22:30 08/19/16 22:29 Pantoprazole/ Sodium Chloride (Protonix/Sodium Chloride) 250 ml @ 25 mls/hr Q10H IV 07/21/16 11:00 08/20/16 10:59 07/24/16 08:41 Propranolol HCl 10 mg 10 mg BID@0900,2100 GT 07/21/16 09:00 08/20/16 08:59 07/23/16 21:20 DANTE HSIEH July 24, 2016 12:05
--- NOTE | 2016-07-24 13:03 | GI Progress Note ---
Assessment/Plan Problems: (1) Helicobacter pylori (H. pylori) ICD Codes: A04.8 - Other specified bacterial intestinal infections (2) Esophageal varices determined by endoscopy ICD Codes: I85.00 - Esophageal varices without bleeding SNOMED: 70546554, 620033960 (3) Anemia due to blood loss, acute ICD Codes: D62 - Acute posthemorrhagic anemia SNOMED: 335946844 (4) Feeding by G-tube ICD Codes: Z93.1 - Gastrostomy status SNOMED: 420083226, 776554598 (5) Ascites ICD Codes: R18.8 - Other ascites SNOMED: 191814164 (6) Elevated LFTs ICD Codes: R94.5 - Abnormal results of liver function studies SNOMED: 527361558 (7) Liver cirrhosis ICD Codes: K74.60 - Unspecified cirrhosis of liver SNOMED: 02122945 (8) Anemia ICD Codes: D64.9 - Anemia, unspecified SNOMED: 069581102 (9) hep c Status: unchanged Status Narrative Discussed with Dr. Arndt. Assessment/Plan S/P EGD SUMMARY FINDINGS: 1. There is advanced from prior banding still in the esophagus with some ulceration on the band as already fall enough. 2. Severe portal hypertensive gastropathy. RECOMMENDATIONS: 1. Resume tube feeding. 2. Monitor laboratories. 3. Transfuse as needed. 4. Start octreotide drip + ppi gtt 5. The patient had H. pylori based on last endoscopy. We will plan to treat when the patient gets discharged. 6. Paracentesis prn Subjective Subjective limited Objective Last 24 Hour Vital Signs Date Time Temp Pulse Resp B/P Pulse Ox O2 Delivery O2 Flow Rate FiO2 07/24/16 12:00 40 07/24/16 12:00 97.3 94 20 118/74 96 Mechanical Ventilator 40 07/24/16 11:17 91 19 40 07/24/16 09:54 88 18 100 Mechanical Ventilator 07/24/16 09:43 89 14 100 Mechanical Ventilator 40 07/24/16 09:17 92 18 40 07/24/16 09:00 88 95/58 07/24/16 08:00 92 07/24/16 08:00 40 07/24/16 08:00 97.3 90 22 95/58 98 Mechanical Ventilator 40 07/24/16 07:29 90 20 100 Mechanical Ventilator 07/24/16 07:22 90 16 40 07/24/16 07:22 90 16 100 Mechanical Ventilator 07/24/16 05:11 91 20 40 07/24/16 04:00 40 07/24/16 04:00 97.5 94 20 99/58 100 Mechanical Ventilator 07/24/16 04:00 99 07/24/16 03:05 92 22 40 07/24/16 01:18 92 18 40 07/24/16 00:00 91 07/24/16 00:00 98.4 88 14 102/64 100 Mechanical Ventilator 07/24/16 00:00 40 07/23/16 23:18 96 22 99 Mechanical Ventilator 07/23/16 23:03 94 25 98 Mechanical Ventilator 07/23/16 23:02 94 25 40 07/23/16 22:00 93 07/23/16 21:20 90 103/67 07/23/16 21:00 95 24 40 07/23/16 20:41 90 18 99 07/23/16 20:00 99.0 97 25 130/53 99 Mechanical Ventilator 07/23/16 20:00 40 07/23/16 19:53 86 22 99 Mechanical Ventilator 07/23/16 19:42 92 22 100 Mechanical Ventilator 40 07/23/16 19:20 88 23 40 07/23/16 17:20 96 22 40 07/23/16 16:00 40 07/23/16 16:00 97.1 90 18 103/67 100 Mechanical Ventilator 07/23/16 16:00 90 07/23/16 15:03 76 22 99 Mechanical Ventilator 07/23/16 14:56 95 26 40 07/23/16 14:55 95 26 96 Mechanical Ventilator 07/23/16 14:00 98.4 07/23/16 13:21 73 24 40 Intake and Output 07/23/16 07/24/16 19:00 07:00 Intake Total 2018.75 ml 1175 ml Output Total 200 ml 425 ml Balance 1818.75 ml 750 ml IV Total 1838.75 ml 935 ml Other 180 ml 240 ml Output Urine Total 200 ml 300 ml Stool Total 125 ml # Bowel Movements 100 Laboratory Tests Test 07/24/16 03:40 White Blood Count 8.7 K/UL (4.8-10.8) # Red Blood Count 2.69 M/UL (4.70-6.10) L Hemoglobin 8.4 G/DL (14.2-18.0) L Hematocrit 25.2 % (42.0-52.0) L Mean Corpuscular Volume 94 FL (80-99) Mean Corpuscular Hemoglobin 31.3 PG (27.0-31.0) H Mean Corpuscular Hemoglobin Concent 33.3 G/DL (32.0-36.0) Red Cell Distribution Width 18.5 % (11.6-14.8) H Platelet Count 187 K/UL (150-450) # Mean Platelet Volume 5.5 FL (6.5-10.1) L Neutrophils (%) (Auto) 73.4 % (45.0-75.0) Lymphocytes (%) (Auto) 11.5 % (20.0-45.0) L Monocytes (%) (Auto) 8.3 % (1.0-10.0) Eosinophils (%) (Auto) 5.8 % (0.0-3.0) H Basophils (%) (Auto) 1.0 % (0.0-2.0) Prothrombin Time 15.4 SEC (9.30-11.50) H Prothromb Time International Ratio 1.5 (0.9-1.1) H Activated Partial Thromboplast Time 34 SEC (23-33) H Sodium Level 142 mEQ/L (135-145) Potassium Level 3.8 mEQ/L (3.4-4.9) Chloride Level 109 mEQ/L (98-107) H Carbon Dioxide Level 18 mEQ/L (20-30) L Anion Gap 15 (5-15) Blood Urea Nitrogen 15 mg/dL (7-23) Creatinine < 0.2 mg/dL (0.7-1.2) L Estimat Glomerular Filtration Rate > 60 mL/min (>60) Glucose Level 124 mg/dL (74-106) H Calcium Level 7.4 mg/dL (8.6-10.2) L Phosphorus Level 2.7 mg/dL (2.5-4.8) Magnesium Level 1.7 mg/dL (1.7-2.5) Total Bilirubin 2.1 mg/dL (0.0-1.2) H Direct Bilirubin 0.6 mg/dL (0.1-0.3) H Aspartate Amino Transf (AST/SGOT) 30 U/L (5-40) Alanine Aminotransferase (ALT/SGPT) 19 U/L (3-41) Alkaline Phosphatase 184 U/L (40-129) H Total Protein 5.9 g/dL (6.6-8.7) L Albumin 1.7 g/dL (3.5-5.2) L Globulin 4.2 g/dL Albumin/Globulin Ratio 0.4 (1.0-2.7) L Height (Feet): 5 Height (Inches): 2.00 Weight (Pounds): 177 General Appearance: no apparent distress, alert Cardiovascular: normal rate Respiratory/Chest: normal breath sounds Abdominal Exam: site - c/d/i Paulette Romero N.P. July 24, 2016 13:03
[2016-07-24] MEDS ORDERED: Tubing IV Secondary IV ONE (14:29)
[2016-07-24] MEDS ORDERED: D5 1/2NS 1000ml IV ONE (14:29)
[2016-07-24 16:00] VITALS: BP 111/55
--- NOTE | 2016-07-24 16:54 | Diagnostic Imaging Report ---
Indications: Ascites Technique: Ultrasound used to localize optimal puncture site. Sterile prepping and draping and was. Local anesthesia with 1% lidocaine. Under real-time ultrasound guidance, puncture peritoneal space using paracentesis needle. Stylet removed. Catheter placed to vacuum bottle suction. Total 6.5 liters of fluid aspirated. Patient tolerated procedure well, without immediate complication. Findings: Followup sonography demonstrates complete resolution of peritoneal fluid. Impression: Successful ultrasound-guided paracentesis, yielding 6.5 liters of fluid
[2016-07-24 20:00] VITALS: BP 111/81
[2016-07-25] VITALS: BP 97/48
[2016-07-25 04:00] VITALS: BP 105/52
[2016-07-25 04:29] LABS: ANION GAP 13 (5-15); CALCIUM 7.1 mg/dL (8.6-10.2); CARBON DIOXIDE 20 mEQ/L (20-30); CHLORIDE 110 mEQ/L (98-107); CREATININE 0.2 mg/dL (0.7-1.2); GLOMERULAR FILTRATION RATE > 60 mL/min (>60); HEMOLYSIS 14; POTASSIUM 3.4 mEQ/L (3.4-4.9); SODIUM 143 mEQ/L (135-145)
[2016-07-25] MEDS: Octreotide Acetate 500 MCG in Sodium Chloride 499 ML IV SCH ×2 (05:16→15:37)
[2016-07-25] MEDS: Pantoprazole 80 MG in NS 250 ML IV SCH ×2 (05:16→15:37)
[2016-07-25] MEDS: Meropenem 2 GM in NS 110 ML IVPB SCH ×3 (05:17→21:00)
[2016-07-25] MEDS: DuoNeb 0.5-3(2.5)mg/3ml neb HHN SCH ×3 (07:22→23:12)
[2016-07-25 08:00] VITALS: BP 90/46
[2016-07-25 08:01] LABS: MEAN CORPUSCULAR HEMOGLOBIN 30.9 PG (27.0-31.0); MEAN CORPUSCULAR HGB CONC 32.5 G/DL (32.0-36.0); MEAN CORPUSCULAR VOLUME 95 FL (80-99); MEAN PLATELET VOLUME 6.1 FL (6.5-10.1); PLATELET COUNT 101 K/UL (150-450); RED BLOOD COUNT 2.25 M/UL (4.70-6.10); RED CELL DISTRIBUTION WIDTH 19.1 % (11.6-14.8)
[2016-07-25] MEDS: Colistin for inhalation INH SCH ×2 (08:20→21:21)
[2016-07-25] MEDS: Propranolol 10mg tab GT SCH ×2 (09:00→21:00)
[2016-07-25] MEDS: levETIRAcetam 500mg/5ml Liquid GT SCH ×2 (09:02→20:59)
[2016-07-25] MEDS: Lactulose 20gm/30ml UDC GT SCH ×4 (09:02→20:59)
--- NOTE | 2016-07-25 09:10 | Pulmonology Progress Note ---
Assessment/Plan Problems: (1) Gastrointestinal hemorrhage (2) Chronic respiratory failure (3) Liver cirrhosis (4) Feeding by G-tube (5) Ascites Assessment/Plan paracentesis yesterday 6.5 liters removed IV fluids check h/h endoscopy showed ulcers around old varicces on Octreotide drip check electrolytes. prbc today check labs in am Subjective Constitutional: Reports: no symptoms HEENT: Repors: no symptoms Allergies: Coded Allergies: No Known Allergies (Unverified , 06/09/16) Objective Last 24 Hour Vital Signs Date Time Temp Pulse Resp B/P Pulse Ox O2 Delivery O2 Flow Rate FiO2 07/25/16 09:00 75 90/46 07/25/16 08:25 87 18 100 Mechanical Ventilator 40 07/25/16 08:20 90 19 100 Mechanical Ventilator 40 07/25/16 07:25 70 19 100 Mechanical Ventilator 40 07/25/16 07:20 69 19 40 07/25/16 07:20 68 18 100 Mechanical Ventilator 40 07/25/16 05:08 71 22 40 07/25/16 04:00 97.5 79 20 105/52 99 Mechanical Ventilator 40 07/25/16 04:00 40 07/25/16 03:44 66 07/25/16 03:10 73 23 40 07/25/16 01:28 64 18 40 07/25/16 00:00 40 07/25/16 00:00 98.5 76 22 97/48 95 Mechanical Ventilator 40 07/25/16 00:00 66 07/24/16 23:13 72 18 100 Mechanical Ventilator 40 07/24/16 22:56 64 19 100 Mechanical Ventilator 40 07/24/16 22:55 62 18 40 07/24/16 22:16 77 111/81 07/24/16 21:08 90 26 40 07/24/16 20:00 97.7 77 19 111/81 100 Mechanical Ventilator 40 07/24/16 20:00 88 07/24/16 20:00 40 07/24/16 18:58 84 23 40 07/24/16 17:16 87 20 40 07/24/16 16:00 40 07/24/16 16:00 94 07/24/16 16:00 97.0 97 25 111/55 99 Mechanical Ventilator 40 07/24/16 14:49 91 24 100 Mechanical Ventilator 07/24/16 14:42 91 16 100 Mechanical Ventilator 07/24/16 14:42 93 18 40 07/24/16 12:45 89 17 40 07/24/16 12:00 40 07/24/16 12:00 97.3 94 20 118/74 96 Mechanical Ventilator 40 07/24/16 12:00 92 07/24/16 11:17 91 19 40 07/24/16 09:54 88 18 100 Mechanical Ventilator 07/24/16 09:43 89 14 100 Mechanical Ventilator 40 07/24/16 09:17 92 18 40 Intake and Output 07/24/16 07/25/16 19:00 07:00 Intake Total 1725 ml 2043 ml Output Total 6750 ml 1225 ml Balance -5025 ml 818 ml Intake Free Water 250 ml IV Total 1460 ml 1853 ml Tube Feeding 15 ml 190 ml Output Urine Total 250 ml 350 ml Stool Total 875 ml Other 6500 ml General Appearance: cachetic HEENT: normocephalic, atraumatic Respiratory/Chest: chest wall non-tender, lungs clear Cardiovascular: normal peripheral pulses, normal rate Abdomen: distended Skin: no rash, no ulcers Neurologic/Psychiatric: no motor/sensory deficits Lymphatic: no neck adenopathy Musculoskeletal: normal muscle bulk Laboratory Tests 07/25/16 03:30: Sodium Level 143, Potassium Level 3.4, Chloride Level 110H, Carbon Dioxide Level 20, Anion Gap 13, Blood Urea Nitrogen 14, Creatinine 0.2L, Estimat Glomerular Filtration Rate > 60, Glucose Level 133H, Calcium Level 7.1L 07/25/16 07:45: White Blood Count 5.0, Red Blood Count 2.25L, Hemoglobin 7.0L, Hematocrit 21.4L , Mean Corpuscular Volume 95, Mean Corpuscular Hemoglobin 30.9, Mean Corpuscular Hemoglobin Concent 32.5, Red Cell Distribution Width 19.1H, Platelet Count 101L, Mean Platelet Volume 6.1L, Neutrophils (%) (Auto) , Lymphocytes (%) (Auto) , Monocytes (%) (Auto) , Eosinophils (%) (Auto) , Basophils (%) (Auto) , Neutrophils % (Manual) [Pending], Lymphocytes % (Manual) [Pending], Platelet Estimate [Pending], Platelet Morphology [Pending] Current Medications Medications (Trade) Dose Ordered Sig/Hair Route PRN Reason Start Time Stop Time Status Last Admin Dose Admin Acetaminophen (Tylenol) 650 mg Q4H PRN ORAL fever 07/20/16 22:30 08/19/16 22:29 Al Hydroxide/Mg Hydroxide 30 ml 30 ml Q6H PRN ORAL Gas 07/23/16 07:00 08/22/16 06:59 Albuterol/ Ipratropium 3 ml 3 ml Q8HRT HHN 07/21/16 07:00 07/26/16 06:59 07/25/16 07:22 Colistimethate Sodium 150 mg 150 mg Q12HR@10,22 INH 07/21/16 22:00 07/28/16 21:59 07/25/16 08:20 Dextrose (Dextrose 50%) STAT PRN IV Hypoglycemia 07/20/16 22:30 08/19/16 22:29 Dextrose/Sodium Chloride (D5 0.45% NS) 1,000 ml @ 75 mls/hr [id number] IV 07/20/16 23:30 08/19/16 23:29 07/24/16 20:39 Diphenhydramine HCl (Benadryl) 25 mg Q6H PRN GT Itching/Pruritis 07/21/16 18:48 08/19/16 22:29 Lactulose (Cephulac) 20 gm QID GT 07/21/16 09:00 08/20/16 08:59 07/25/16 09:02 Levetiracetam (Keppra) 1,500 mg Q12HR GT 07/21/16 09:00 08/20/16 08:59 07/25/16 09:02 Lorazepam (Ativan) 1 mg Q6H PRN GT For Anxiety 07/20/16 22:30 07/27/16 22:29 Meropenem/Sodium Chloride (Merrem/Sodium Chloride) 110 ml @ 110 mls/hr Q8HR IVPB 07/21/16 14:00 07/27/16 23:59 07/25/16 05:17 Morphine Sulfate (Morphine Sulfate) 2 mg Q4H PRN IVP severe Pain (Pain Scale 7-10) 07/20/16 22:30 07/27/16 22:29 07/23/16 13:18 Nitroglycerin (Ntg) 0.4 mg Q5M X 3 DOSES PRN SL Prn Chest Pain 5/22/17 22:30 08/19/16 22:29 Octreotide Acetate 500 mcg/ Sodium Chloride 500 ml @ 50 mls/hr Q10H IV 07/21/16 11:00 08/20/16 10:59 07/25/16 05:16 Ondansetron HCl (Zofran) 4 mg Q6H PRN IVP Nausea & Vomiting 07/20/16 22:30 08/19/16 22:29 Pantoprazole/ Sodium Chloride (Protonix/Sodium Chloride) 250 ml @ 25 mls/hr Q10H IV 07/21/16 11:00 08/20/16 10:59 07/25/16 05:16 Phytonadione/ Dextrose (Vitamin K/D5W) 56 ml @ 112 mls/hr ONCE ONCE IVPB 07/25/16 09:15 07/25/16 09:44 UNV Propranolol HCl 10 mg 10 mg BID@0900,2100 GT 07/21/16 09:00 08/20/16 08:59 07/24/16 22:16 DANTE HSIEH July 25, 2016 09:10
[2016-07-25] MEDS ORDERED: Phytonadione 10 MG in D5W 55 ML IVPB ONE (10:00)
[2016-07-25 10:07] LABS: ANISOCYTOSIS 2+; BAND NEUTROPHILS % (MANUAL) 0 % (0-8); BASOPHILS % (MANUAL) 1 % (0-2); EOSINOPHILS % (MANUAL) 5 % (0-3); HYPOCHROMASIA 3+; LYMPHOCYTES % (MANUAL) 9 % (20-45); NEUTROPHILS % (MANUAL) 82 % (45-75); PLATELET ESTIMATE DECREASED; PLATELET MORPHOLOGY NORMAL; SPHEROCYTES 2+; TOTAL CELLS COUNTED 100
[2016-07-25 12:00] VITALS: BP 110/60
[2016-07-25] MEDS: D5 1/2NS 1,000 ML IV SCH ×2 (14:01→23:36)
[2016-07-25] MEDS ORDERED: Tubing IV Secondary IV ONE ×2 (14:09→16:26)
[2016-07-25] MEDS ORDERED: D5 1/2NS 1000ml IV ONE (14:09)
[2016-07-25 16:15] VITALS: BP 93/42
[2016-07-25] MEDS ORDERED: NS Irrig 1000ml ONE (16:26)
[2016-07-25] MEDS ORDERED: NS 275ml ONE (16:26)
[2016-07-25] MEDS ORDERED: Tubing Blood Filter IV ONE (16:26)
[2016-07-25 20:21] VITALS: BP 92/43
--- NOTE | 2016-07-25 21:52 | Infectious Diseases Prog Note ---
Assessment/Plan Assessment/Plan ASSESSMENT: 56 y/o male with: // Recent HCAP / VAP - repeat SPcx: GNR and KPC - SCx PSA and Pr. Mirabilis - CXR: Slightly improved aeration at the left lung base. // Hx of Polymicrobial ( MRSA, M.morganii ,PSA ) bacteremia 06/02 , repeat BCx :neg , SP Rx - TTE(-) SBE // Hx of Recurrent gross hematuria and recurrent UTI - UCx : Sonja ( Colonizer ) // Stage IV sacral debuitus ulcer Wnd Cx : GNR x 2 colonizer // HCV Ab+ // Negative HIV // Elev Alk Ph: - HIDA scan :neg 07/15 // Afebrile without leukocytosis // Elevated ESR, CRP // H. pylori based on last endoscopy. plan to treat when the patient gets discharged as per GI // GI bleed , SP EGD 07/22 : Esophagus ulceration on the band and severe portal hypertensive gastropathy. // Chronic liver disease / cirrhosis with elevated LFTs, US : GB wall thickening ( probably 2nd to ascites ) CT: Liver cirrhosis with stigmata of portal hypertension // Chronic VDRF SP trach, PEG // h/o CVA // [facility] resident // MDRO colonized // NKDA // Full Code PLAN: - continue IV Merrem and Colistin INH d# 5 - f/u cultures ( Bl, Ur, Sp ) - monitor CBC, temperatures - monitor BMP - monitor CXR - vent support, trach care, aspiration precaution - wound care Subjective Constitutional: Denies: anorexia, chills, drenching sweats, fatigue, fever, no symptoms, other Allergies: Coded Allergies: No Known Allergies (Unverified , 06/09/16) Objective Vital Signs Last 24 Hour Vital Signs Date Time Temp Pulse Resp B/P Pulse Ox O2 Delivery O2 Flow Rate FiO2 07/25/16 21:20 77 21 100 Mechanical Ventilator 40 07/25/16 21:20 76 22 40 07/25/16 21:00 75 114/58 07/25/16 20:21 97.6 67 19 92/43 100 Mechanical Ventilator 07/25/16 20:00 40 07/25/16 18:49 72 20 40 07/25/16 17:10 72 21 40 07/25/16 16:15 97.9 73 24 93/42 100 Mechanical Ventilator 40 07/25/16 16:00 40 07/25/16 16:00 71 07/25/16 15:15 64 19 100 Mechanical Ventilator 40 07/25/16 15:10 70 21 40 07/25/16 15:10 70 17 100 Mechanical Ventilator 40 07/25/16 13:10 55 14 40 07/25/16 12:00 40 07/25/16 12:00 66 07/25/16 12:00 97.8 66 20 110/60 100 Mechanical Ventilator 40 07/25/16 11:11 68 20 40 07/25/16 09:10 63 17 40 07/25/16 09:00 75 90/46 07/25/16 08:25 87 18 100 Mechanical Ventilator 40 07/25/16 08:20 90 19 100 Mechanical Ventilator 40 07/25/16 08:00 40 07/25/16 08:00 75 07/25/16 08:00 97.9 75 20 90/46 100 Mechanical Ventilator 40 07/25/16 07:25 70 19 100 Mechanical Ventilator 40 07/25/16 07:20 69 19 40 07/25/16 07:20 68 18 100 Mechanical Ventilator 40 07/25/16 05:08 71 22 40 07/25/16 04:00 97.5 79 20 105/52 99 Mechanical Ventilator 40 07/25/16 04:00 40 07/25/16 03:44 66 07/25/16 03:10 73 23 40 07/25/16 01:28 64 18 40 07/25/16 00:00 40 07/25/16 00:00 98.5 76 22 97/48 95 Mechanical Ventilator 40 07/25/16 00:00 66 07/24/16 23:13 72 18 100 Mechanical Ventilator 40 07/24/16 22:56 64 19 100 Mechanical Ventilator 40 07/24/16 22:55 62 18 40 07/24/16 22:16 77 111/81 Height (Feet): 5 Height (Inches): 2.00 Weight (Pounds): 177 HEENT: anicteric Respiratory/Chest: no respiratory distress Cardiovascular: normal rate Abdomen: soft, non tender, no mass Laboratory Tests Test 07/25/16 03:30 07/25/16 07:45 Sodium Level 143 mEQ/L (135-145) Potassium Level 3.4 mEQ/L (3.4-4.9) Chloride Level 110 mEQ/L (98-107) H Carbon Dioxide Level 20 mEQ/L (20-30) Anion Gap 13 (5-15) Blood Urea Nitrogen 14 mg/dL (7-23) Creatinine 0.2 mg/dL (0.7-1.2) L Estimat Glomerular Filtration Rate > 60 mL/min (>60) Glucose Level 133 mg/dL (74-106) H Calcium Level 7.1 mg/dL (8.6-10.2) L White Blood Count 5.0 K/UL (4.8-10.8) Red Blood Count 2.25 M/UL (4.70-6.10) L Hemoglobin 7.0 G/DL (14.2-18.0) L Hematocrit 21.4 % (42.0-52.0) L Mean Corpuscular Volume 95 FL (80-99) Mean Corpuscular Hemoglobin 30.9 PG (27.0-31.0) Mean Corpuscular Hemoglobin Concent 32.5 G/DL (32.0-36.0) Red Cell Distribution Width 19.1 % (11.6-14.8) H Platelet Count 101 K/UL (150-450) L Mean Platelet Volume 6.1 FL (6.5-10.1) L Neutrophils (%) (Auto) % (45.0-75.0) Lymphocytes (%) (Auto) % (20.0-45.0) Monocytes (%) (Auto) % (1.0-10.0) Eosinophils (%) (Auto) % (0.0-3.0) Basophils (%) (Auto) % (0.0-2.0) Differential Total Cells Counted 100 Neutrophils % (Manual) 82 % (45-75) H Lymphocytes % (Manual) 9 % (20-45) L Monocytes % (Manual) 3 % (1-10) Eosinophils % (Manual) 5 % (0-3) H Basophils % (Manual) 1 % (0-2) Band Neutrophils 0 % (0-8) Platelet Estimate Decreased L Platelet Morphology Normal Hypochromasia 3+ Anisocytosis 2+ Spherocytes 2+ Current Medications Medications (Trade) Dose Ordered Sig/Hair Route PRN Reason Start Time Stop Time Status Last Admin Dose Admin Acetaminophen (Tylenol) 650 mg Q4H PRN ORAL fever 07/20/16 22:30 08/19/16 22:29 Al Hydroxide/Mg Hydroxide (Mylanta II) 30 ml Q6H PRN ORAL Gas 07/23/16 07:00 08/22/16 06:59 Albuterol/ Ipratropium 3 ml 3 ml Q8HRT HHN 07/21/16 07:00 07/26/16 06:59 07/25/16 15:18 Colistimethate Sodium 150 mg 150 mg Q12HR@10,22 INH 07/21/16 22:00 07/28/16 21:59 07/25/16 21:21 Dextrose (Dextrose 50%) STAT PRN IV Hypoglycemia 07/20/16 22:30 08/19/16 22:29 Dextrose/Sodium Chloride (D5 0.45% NS) 1,000 ml @ 75 mls/hr [id number] IV 07/20/16 23:30 08/19/16 23:29 07/25/16 14:01 Diphenhydramine HCl (Benadryl) 25 mg Q6H PRN GT Itching/Pruritis 07/21/16 18:48 08/19/16 22:29 Lactulose (Cephulac) 20 gm QID GT 07/21/16 09:00 08/20/16 08:59 07/25/16 20:59 Levetiracetam (Keppra) 1,500 mg Q12HR GT 07/21/16 09:00 08/20/16 08:59 07/25/16 20:59 Lorazepam (Ativan) 1 mg Q6H PRN GT For Anxiety 07/20/16 22:30 07/27/16 22:29 Meropenem/Sodium Chloride (Merrem/Sodium Chloride) 110 ml @ 110 mls/hr Q8HR IVPB 07/21/16 14:00 07/27/16 23:59 07/25/16 21:00 Morphine Sulfate (Morphine Sulfate) 2 mg Q4H PRN IVP severe Pain (Pain Scale 7-10) 07/20/16 22:30 07/27/16 22:29 07/23/16 13:18 Nitroglycerin (Ntg) 0.4 mg Q5M X 3 DOSES PRN SL Prn Chest Pain 07/20/16 22:30 6/21/17 22:29 Octreotide Acetate 500 mcg/ Sodium Chloride 500 ml @ 50 mls/hr Q10H IV 07/21/16 11:00 08/20/16 10:59 07/25/16 15:37 Ondansetron HCl (Zofran) 4 mg Q6H PRN IVP Nausea & Vomiting 07/20/16 22:30 08/19/16 22:29 Pantoprazole/ Sodium Chloride (Protonix/Sodium Chloride) 250 ml @ 25 mls/hr Q10H IV 07/21/16 11:00 08/20/16 10:59 07/25/16 15:37 Propranolol HCl 10 mg 10 mg BID@0900,2100 GT 07/21/16 09:00 08/20/16 08:59 07/25/16 21:00 SHARRI RAMÍREZ M.D. July 25, 2016 21:52
[2016-07-26] VITALS: BP 110/52
[2016-07-26] MEDS: Pantoprazole 80 MG in NS 250 ML IV SCH ×2 (01:21→11:27)
[2016-07-26] MEDS: Octreotide Acetate 500 MCG in Sodium Chloride 499 ML IV SCH ×3 (01:21→21:03)
[2016-07-26 04:10] VITALS: BP 115/56
[2016-07-26 04:23] LABS: BASOPHILS % (AUTO) 0.8 % (0.0-2.0); LYMPHOCYTES % (AUTO) 14.3 % (20.0-45.0); MEAN CORPUSCULAR VOLUME 94 FL (80-99); MEAN PLATELET VOLUME 6.5 FL (6.5-10.1); MONOCYTES % (AUTO) 8.3 % (1.0-10.0); NEUTROPHILS % (AUTO) 67.6 % (45.0-75.0); PLATELET COUNT 120 K/UL (150-450); RED BLOOD COUNT 2.82 M/UL (4.70-6.10); RED CELL DISTRIBUTION WIDTH 18.7 % (11.6-14.8); WHITE BLOOD COUNT 4.8 K/UL (4.8-10.8)
[2016-07-26 04:32] LABS: INR 1.4 (0.9-1.1); PROTHROMBIN TIME 14.3 SEC (9.30-11.50)
[2016-07-26 04:35] LABS: ALANINE AMINOTRANSFERASE 13 U/L (3-41); ALBUMIN/GLOBULIN RATIO 0.4 (1.0-2.7); ANION GAP 13 (5-15); ASPARTATE AMINO TRANSFERASE 23 U/L (5-40); CALCIUM 7.2 mg/dL (8.6-10.2); CARBON DIOXIDE 23 mEQ/L (20-30); CHLORIDE 111 mEQ/L (98-107); CREATININE 0.3 mg/dL (0.7-1.2); GLOMERULAR FILTRATION RATE > 60 mL/min (>60); HEMOLYSIS 11; MAGNESIUM 1.8 mg/dL (1.7-2.5); PHOSPHORUS 1.8 mg/dL (2.5-4.8); SODIUM 147 mEQ/L (135-145); TOTAL PROTEIN 5.4 g/dL (6.6-8.7)
[2016-07-26] MEDS: Meropenem 2 GM in NS 110 ML IVPB SCH ×3 (06:01→22:13)
[2016-07-26 08:00] VITALS: BP 110/55
[2016-07-26] MEDS: Lactulose 20gm/30ml UDC GT SCH ×4 (08:33→20:33)
[2016-07-26] MEDS: Propranolol 10mg tab GT SCH ×2 (08:52→20:34)
[2016-07-26] MEDS: levETIRAcetam 500mg/5ml Liquid GT SCH ×2 (08:53→20:34)
--- NOTE | 2016-07-26 09:27 | Infectious Diseases Prog Note ---
Assessment/Plan Assessment/Plan A; Pneumonia UTI Stage IV sacral ulcer Esophageal varices GI bleeding Cirrhosis VDRF Ascites P; Continue Meropenem & Colistin Subjective ROS Limited/Unobtainable: Yes Allergies: Coded Allergies: No Known Allergies (Unverified , 06/09/16) Objective Vital Signs Last 24 Hour Vital Signs Date Time Temp Pulse Resp B/P Pulse Ox O2 Delivery O2 Flow Rate FiO2 07/26/16 09:21 86 24 40 07/26/16 08:52 87 110/55 07/26/16 08:00 98.2 87 21 110/55 100 Mechanical Ventilator 40 07/26/16 07:19 74 17 40 07/26/16 05:13 88 21 40 07/26/16 04:10 98.6 96 18 115/56 100 Mechanical Ventilator 07/26/16 04:00 89 07/26/16 04:00 40 07/26/16 03:00 86 21 40 07/26/16 01:04 86 18 40 07/26/16 00:00 69 07/26/16 00:00 97.5 81 17 110/52 100 Mechanical Ventilator 07/26/16 00:00 40 07/25/16 23:30 80 18 100 Mechanical Ventilator 40 07/25/16 23:12 70 18 100 Mechanical Ventilator 40 07/25/16 23:11 70 18 40 07/25/16 21:30 70 21 100 Mechanical Ventilator 40 07/25/16 21:20 77 21 100 Mechanical Ventilator 40 07/25/16 21:20 76 22 40 07/25/16 21:00 75 114/58 07/25/16 20:21 97.6 67 19 92/43 100 Mechanical Ventilator 07/25/16 20:00 40 07/25/16 20:00 62 07/25/16 18:49 72 20 40 07/25/16 17:10 72 21 40 07/25/16 16:15 97.9 73 24 93/42 100 Mechanical Ventilator 40 07/25/16 16:00 40 07/25/16 16:00 71 07/25/16 15:15 64 19 100 Mechanical Ventilator 40 07/25/16 15:10 70 21 40 07/25/16 15:10 70 17 100 Mechanical Ventilator 40 07/25/16 13:10 55 14 40 07/25/16 12:00 40 07/25/16 12:00 66 07/25/16 12:00 97.8 66 20 110/60 100 Mechanical Ventilator 40 07/25/16 11:11 68 20 40 Height (Feet): 5 Height (Inches): 2.00 Weight (Pounds): 177 General Appearance: no acute distress HEENT: status post trach Respiratory/Chest: lungs clear, other - on ventilator Cardiovascular: normal rate Abdomen: soft, non tender, other - GT feeding, leaking from paracentesis area Extremities: no edema Neurologic/Psychiatric: alert, responsive Laboratory Tests Test 07/26/16 03:15 White Blood Count 4.8 K/UL (4.8-10.8) Red Blood Count 2.82 M/UL (4.70-6.10) L Hemoglobin 8.7 G/DL (14.2-18.0) L Hematocrit 26.4 % (42.0-52.0) L Mean Corpuscular Volume 94 FL (80-99) Mean Corpuscular Hemoglobin 31.0 PG (27.0-31.0) Mean Corpuscular Hemoglobin Concent 33.0 G/DL (32.0-36.0) Red Cell Distribution Width 18.7 % (11.6-14.8) H Platelet Count 120 K/UL (150-450) L Mean Platelet Volume 6.5 FL (6.5-10.1) Neutrophils (%) (Auto) 67.6 % (45.0-75.0) Lymphocytes (%) (Auto) 14.3 % (20.0-45.0) L Monocytes (%) (Auto) 8.3 % (1.0-10.0) Eosinophils (%) (Auto) 9.0 % (0.0-3.0) H Basophils (%) (Auto) 0.8 % (0.0-2.0) Prothrombin Time 14.3 SEC (9.30-11.50) H Prothromb Time International Ratio 1.4 (0.9-1.1) H Activated Partial Thromboplast Time 38 SEC (23-33) H Sodium Level 147 mEQ/L (135-145) H Potassium Level 3.0 mEQ/L (3.4-4.9) L Chloride Level 111 mEQ/L (98-107) H Carbon Dioxide Level 23 mEQ/L (20-30) Anion Gap 13 (5-15) Blood Urea Nitrogen 13 mg/dL (7-23) Creatinine 0.3 mg/dL (0.7-1.2) L Estimat Glomerular Filtration Rate > 60 mL/min (>60) Glucose Level 107 mg/dL (74-106) H Calcium Level 7.2 mg/dL (8.6-10.2) L Phosphorus Level 1.8 mg/dL (2.5-4.8) L Magnesium Level 1.8 mg/dL (1.7-2.5) Total Bilirubin 1.0 mg/dL (0.0-1.2) Aspartate Amino Transf (AST/SGOT) 23 U/L (5-40) Alanine Aminotransferase (ALT/SGPT) 13 U/L (3-41) Alkaline Phosphatase 152 U/L (40-129) H Total Protein 5.4 g/dL (6.6-8.7) L Albumin 1.6 g/dL (3.5-5.2) L Globulin 3.8 g/dL Albumin/Globulin Ratio 0.4 (1.0-2.7) L Current Medications Medications (Trade) Dose Ordered Sig/Hair Route PRN Reason Start Time Stop Time Status Last Admin Dose Admin Acetaminophen (Tylenol) 650 mg Q4H PRN ORAL fever 07/20/16 22:30 08/19/16 22:29 Al Hydroxide/Mg Hydroxide (Mylanta II) 30 ml Q6H PRN ORAL Gas 07/23/16 07:00 08/22/16 06:59 Colistimethate Sodium 150 mg 150 mg Q12HR@10,22 INH 07/21/16 22:00 07/28/16 21:59 07/25/16 21:21 Dextrose STAT PRN IV Hypoglycemia 07/20/16 22:30 08/19/16 22:29 Dextrose/Sodium Chloride (D5 0.45% NS) 1,000 ml @ 75 mls/hr [id number] IV 07/20/16 23:30 08/19/16 23:29 07/25/16 23:36 Diphenhydramine HCl (Benadryl) 25 mg Q6H PRN GT Itching/Pruritis 07/21/16 18:48 08/19/16 22:29 Lactulose (Cephulac) 20 gm QID GT 07/21/16 09:00 08/20/16 08:59 07/25/16 20:59 Levetiracetam (Keppra) 1,500 mg Q12HR GT 07/21/16 09:00 08/20/16 08:59 07/26/16 08:53 Lorazepam (Ativan) 1 mg Q6H PRN GT For Anxiety 07/20/16 22:30 07/27/16 22:29 Meropenem/Sodium Chloride (Merrem/Sodium Chloride) 110 ml @ 110 mls/hr Q8HR IVPB 07/21/16 14:00 07/27/16 23:59 07/26/16 06:01 Morphine Sulfate (Morphine Sulfate) 2 mg Q4H PRN IVP severe Pain (Pain Scale 7-10) 07/20/16 22:30 07/27/16 22:29 07/23/16 13:18 Nitroglycerin (Ntg) 0.4 mg Q5M X 3 DOSES PRN SL Prn Chest Pain 07/20/16 22:30 08/19/16 22:29 Octreotide Acetate 500 mcg/ Sodium Chloride 500 ml @ 50 mls/hr Q10H IV 07/21/16 11:00 08/20/16 10:59 07/26/16 01:21 Ondansetron HCl (Zofran) 4 mg Q6H PRN IVP Nausea & Vomiting 07/20/16 22:30 08/19/16 22:29 Pantoprazole/ Sodium Chloride (Protonix/Sodium Chloride) 250 ml @ 25 mls/hr Q10H IV 07/21/16 11:00 08/20/16 10:59 07/26/16 01:21 Propranolol HCl 10 mg 10 mg BID@0900,2100 GT 07/21/16 09:00 08/20/16 08:59 07/26/16 08:52 REHANA HINES July 26, 2016 09:27
[2016-07-26] MEDS: Colistin for inhalation INH SCH ×2 (10:07→22:03)
[2016-07-26] MEDS: Ascorbic Acid 500mg tab ORAL SCH (11:26)
[2016-07-26] MEDS: D5 1/2NS 1,000 ML IV SCH (11:27)
[2016-07-26 12:00] VITALS: BP 108/62
[2016-07-26] MEDS ORDERED: D5W IV SCH (12:00)
[2016-07-26] MEDS ORDERED: POTASSIUM PHOSPHATE IV SCH (12:00)
--- NOTE | 2016-07-26 14:01 | Pulmonology Progress Note ---
Assessment/Plan Problems: (1) Gastrointestinal hemorrhage (2) Chronic respiratory failure (3) Liver cirrhosis (4) Feeding by G-tube (5) Ascites Assessment/Plan paracentesis two days 6.5 liters removed IV fluids check h/h stabe for 24 hours endoscopy showed ulcers around old varicces check electrolytes. prbc today check labs in am Subjective ROS Limited/Unobtainable: No Interval Events: comfortable Allergies: Coded Allergies: No Known Allergies (Unverified , 06/09/16) Objective Last 24 Hour Vital Signs Date Time Temp Pulse Resp B/P Pulse Ox O2 Delivery O2 Flow Rate FiO2 07/26/16 12:59 62 15 40 07/26/16 12:00 40 07/26/16 12:00 72 07/26/16 12:00 98.3 79 26 108/62 100 Mechanical Ventilator 40 07/26/16 10:33 70 24 40 07/26/16 10:16 76 21 100 Mechanical Ventilator 40 07/26/16 10:07 77 20 100 Mechanical Ventilator 40 07/26/16 09:21 86 24 40 07/26/16 08:52 87 110/55 07/26/16 08:00 98.2 87 21 110/55 100 Mechanical Ventilator 40 07/26/16 08:00 96 07/26/16 08:00 40 07/26/16 07:19 74 17 40 07/26/16 05:13 88 21 40 07/26/16 04:10 98.6 96 18 115/56 100 Mechanical Ventilator 07/26/16 04:00 89 07/26/16 04:00 40 07/26/16 03:00 86 21 40 07/26/16 01:04 86 18 40 07/26/16 00:00 69 07/26/16 00:00 97.5 81 17 110/52 100 Mechanical Ventilator 07/26/16 00:00 40 07/25/16 23:30 80 18 100 Mechanical Ventilator 40 07/25/16 23:12 70 18 100 Mechanical Ventilator 40 07/25/16 23:11 70 18 40 07/25/16 21:30 70 21 100 Mechanical Ventilator 40 07/25/16 21:20 77 21 100 Mechanical Ventilator 40 07/25/16 21:20 76 22 40 07/25/16 21:00 75 114/58 07/25/16 20:21 97.6 67 19 92/43 100 Mechanical Ventilator 07/25/16 20:00 40 07/25/16 20:00 62 07/25/16 18:49 72 20 40 07/25/16 17:10 72 21 40 07/25/16 16:15 97.9 73 24 93/42 100 Mechanical Ventilator 40 07/25/16 16:00 40 07/25/16 16:00 71 07/25/16 15:15 64 19 100 Mechanical Ventilator 40 07/25/16 15:10 70 21 40 07/25/16 15:10 70 17 100 Mechanical Ventilator 40 Intake and Output 07/25/16 07/26/16 19:00 07:00 Intake Total 2495 ml 2657.5 ml Output Total 520 ml 275 ml Balance 1975 ml 2382.5 ml Intake Free Water 150 ml 150 ml IV Total 1695 ml 1907.5 ml Tube Feeding 380 ml 600 ml Blood Product 270 ml Output Urine Total 320 ml 275 ml Stool Total 200 ml # Bowel Movements 100 General Appearance: WD/WN HEENT: normocephalic, atraumatic Respiratory/Chest: chest wall non-tender, lungs clear Cardiovascular: normal peripheral pulses, regular rhythm Abdomen: normal bowel sounds, soft, non tender Genitourinary: normal external genitalia Extremities: no clubbing Skin: no lesions 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, normal mood/affect Lymphatic: no groin adenopathy Laboratory Tests 07/26/16 03:15: White Blood Count 4.8, Red Blood Count 2.82L, Hemoglobin 8.7L, Hematocrit 26.4L , Mean Corpuscular Volume 94, Mean Corpuscular Hemoglobin 31.0, Mean Corpuscular Hemoglobin Concent 33.0, Red Cell Distribution Width 18.7H, Platelet Count 120L, Mean Platelet Volume 6.5, Neutrophils (%) (Auto) 67.6, Lymphocytes (%) (Auto) 14.3L, Monocytes (%) (Auto) 8.3, Eosinophils (%) (Auto) 9.0H, Basophils (%) (Auto) 0.8, Prothrombin Time 14.3H, Prothromb Time International Ratio 1.4H, Activated Partial Thromboplast Time 38H, Sodium Level 147H, Potassium Level 3.0L, Chloride Level 111H, Carbon Dioxide Level 23, Anion Gap 13, Blood Urea Nitrogen 13, Creatinine 0.3L, Estimat Glomerular Filtration Rate > 60, Glucose Level 107H, Calcium Level 7.2L, Phosphorus Level 1.8L, Magnesium Level 1.8, Total Bilirubin 1.0, Aspartate Amino Transf (AST/SGOT) 23, Alanine Aminotransferase (ALT/SGPT) 13, Alkaline Phosphatase 152H, Total Protein 5.4L, Albumin 1.6L, Globulin 3.8, Albumin/Globulin Ratio 0.4L Current Medications Medications (Trade) Dose Ordered Sig/Hair Route PRN Reason Start Time Stop Time Status Last Admin Dose Admin Acetaminophen (Tylenol) 650 mg Q4H PRN ORAL fever 07/20/16 22:30 08/19/16 22:29 Al Hydroxide/Mg Hydroxide (Mylanta II) 30 ml Q6H PRN ORAL Gas 07/23/16 07:00 08/22/16 06:59 Ascorbic Acid 500 mg 500 mg DAILY ORAL 07/26/16 10:30 08/25/16 10:29 07/26/16 11:26 Colistimethate Sodium 150 mg 150 mg Q12HR@10,22 INH 07/21/16 22:00 07/28/16 21:59 07/26/16 10:07 Dextrose STAT PRN IV Hypoglycemia 07/20/16 22:30 08/19/16 22:29 Dextrose/Sodium Chloride (D5 0.45% NS) 1,000 ml @ 75 mls/hr [id number] IV 07/20/16 23:30 08/19/16 23:29 07/26/16 11:27 Diphenhydramine HCl (Benadryl) 25 mg Q6H PRN GT Itching/Pruritis 07/21/16 18:48 08/19/16 22:29 Lactulose (Cephulac) 20 gm QID GT 07/21/16 09:00 08/20/16 08:59 07/25/16 20:59 Levetiracetam (Keppra) 1,500 mg Q12HR GT 07/21/16 09:00 08/20/16 08:59 07/26/16 08:53 Lorazepam (Ativan) 1 mg Q6H PRN GT For Anxiety 07/20/16 22:30 07/27/16 22:29 07/26/16 12:15 Meropenem/Sodium Chloride (Merrem/Sodium Chloride) 110 ml @ 110 mls/hr Q8HR IVPB 07/21/16 14:00 07/27/16 23:59 07/26/16 13:19 Morphine Sulfate (Morphine Sulfate) 2 mg Q4H PRN IVP severe Pain (Pain Scale 7-10) 07/20/16 22:30 07/27/16 22:29 07/23/16 13:18 Nitroglycerin (Ntg) 0.4 mg Q5M X 3 DOSES PRN SL Prn Chest Pain 07/20/16 22:30 08/19/16 22:29 Octreotide Acetate/Sodium Chloride (SandoSTATIN/NS) 500 ml @ 50 mls/hr Q10H IV 07/21/16 11:00 08/20/16 10:59 07/26/16 11:27 Ondansetron HCl (Zofran) 4 mg Q6H PRN IVP Nausea & Vomiting 07/20/16 22:30 08/19/16 22:29 Pantoprazole (Protonix) 40 mg EVERY 12 HOURS IVP 07/26/16 21:00 08/25/16 20:59 Potassium Phosphate/Dextrose (K Phos/D5W 500ml) 560.0909 ml @ 100 mls/hr ONCE IV 07/26/16 12:00 07/26/16 17:37 Propranolol HCl 10 mg 10 mg BID@0900,2100 GT 07/21/16 09:00 08/20/16 08:59 07/26/16 08:52 DANTE HSIEH July 26, 2016 14:01
[2016-07-26 16:00] VITALS: BP 101/57
[2016-07-26] MEDS ORDERED: D5 1/2NS 1000ml IV ONE (16:29)
[2016-07-26] MEDS ORDERED: NS 275ml ONE (16:29)
[2016-07-26] MEDS ORDERED: Tubing IV Secondary IV ONE (16:29)
[2016-07-26 20:00] VITALS: BP 126/69
[2016-07-26] MEDS: Pantoprazole Inj IVP SCH (20:33)
[2016-07-27] VITALS: BP 139/73
[2016-07-27 04:00] VITALS: BP 111/58
[2016-07-27] MEDS: D5 1/2NS 1,000 ML IV SCH ×2 (04:23→16:16)
[2016-07-27] MEDS: Octreotide Acetate 500 MCG in Sodium Chloride 499 ML IV SCH (05:17)
[2016-07-27] MEDS: Meropenem 2 GM in NS 110 ML IVPB SCH ×3 (05:17→21:42)
[2016-07-27 08:00] VITALS: BP 128/98
[2016-07-27] MEDS: Ascorbic Acid 500mg tab ORAL SCH (08:29)
[2016-07-27] MEDS: Lactulose 20gm/30ml UDC GT SCH ×4 (08:29→21:34)
[2016-07-27] MEDS: Propranolol 10mg tab GT SCH ×2 (08:30→21:00)
[2016-07-27] MEDS: levETIRAcetam 500mg/5ml Liquid GT SCH ×2 (08:30→21:34)
[2016-07-27] MEDS: Pantoprazole Inj IVP SCH ×2 (08:31→21:35)
--- NOTE | 2016-07-27 08:37 | General Progress Note ---
Assessment/Plan Problem List: (1) Helicobacter pylori (H. pylori) ICD Codes: A04.8 - Other specified bacterial intestinal infections (2) Esophageal varices determined by endoscopy ICD Codes: I85.00 - Esophageal varices without bleeding SNOMED: 42288477, 421165277 (3) hep c (4) Feeding by G-tube ICD Codes: Z93.1 - Gastrostomy status SNOMED: 281319928, 031540555 (5) Ascites ICD Codes: R18.8 - Other ascites SNOMED: 837563596 (6) Elevated LFTs ICD Codes: R94.5 - Abnormal results of liver function studies SNOMED: 053943796 (7) Liver cirrhosis ICD Codes: K74.60 - Unspecified cirrhosis of liver SNOMED: 08294413 (8) Anemia ICD Codes: D64.9 - Anemia, unspecified SNOMED: 674616041 Assessment/Plan GTF swallow eval supportive care PRN blood transfusion Subjective ROS Limited/Unobtainable: No Allergies: Coded Allergies: No Known Allergies (Unverified , 06/09/16) Objective Last 24 Hour Vital Signs Date Time Temp Pulse Resp B/P Pulse Ox O2 Delivery O2 Flow Rate FiO2 07/27/16 08:30 99 128/98 07/27/16 06:48 92 20 40 07/27/16 05:22 90 25 40 07/27/16 04:00 93 07/27/16 04:00 40 07/27/16 04:00 98.8 90 25 111/58 98 Mechanical Ventilator 40 07/27/16 03:20 93 22 40 07/27/16 00:40 88 23 40 07/27/16 00:38 74 14 40 07/27/16 00:00 89 07/27/16 00:00 98.3 88 22 139/73 100 Mechanical Ventilator 40 07/27/16 00:00 40 07/26/16 22:07 81 16 100 Mechanical Ventilator 40 07/26/16 22:01 84 29 100 Mechanical Ventilator 40 07/26/16 21:39 72 20 40 07/26/16 20:34 82 128/74 07/26/16 20:00 82 07/26/16 20:00 98.4 81 24 126/69 100 Mechanical Ventilator 40 07/26/16 20:00 40 07/26/16 19:32 74 20 40 07/26/16 17:05 83 25 40 07/26/16 16:00 74 07/26/16 16:00 40 07/26/16 16:00 99.0 78 23 101/57 100 Mechanical Ventilator 40 07/26/16 15:07 66 19 40 07/26/16 12:59 62 15 40 07/26/16 12:00 40 07/26/16 12:00 72 07/26/16 12:00 98.3 79 26 108/62 100 Mechanical Ventilator 40 07/26/16 10:33 70 24 40 07/26/16 10:16 76 21 100 Mechanical Ventilator 40 07/26/16 10:07 77 20 100 Mechanical Ventilator 40 07/26/16 09:21 86 24 40 07/26/16 08:52 87 110/55 Intake and Output 07/26/16 07/27/16 19:00 07:00 Intake Total 2467.5 ml 2029 ml Output Total 950 ml 625 ml Balance 1517.5 ml 1404 ml Intake Free Water 100 ml 150 ml IV Total 1687.5 ml 1219 ml Tube Feeding 660 ml 660 ml Other 20 ml Output Urine Total 350 ml 525 ml Stool Total 600 ml 100 ml Height (Feet): 5 Height (Inches): 2.00 Weight (Pounds): 177 General Appearance: no apparent distress EENT: normal ENT inspection Neck: supple Cardiovascular: normal rate Respiratory/Chest: decreased breath sounds Abdomen: normal bowel sounds, non tender, soft Extremities: non-tender BRIA VELASQUEZ July 27, 2016 08:37
[2016-07-27] MEDS: Colistin for inhalation INH SCH ×2 (10:16→21:00)
[2016-07-27 11:52] LABS: EOSINOPHILS % (AUTO) 8.9 % (0.0-3.0); LYMPHOCYTES % (AUTO) 15.5 % (20.0-45.0); MEAN CORPUSCULAR HEMOGLOBIN 32.5 PG (27.0-31.0); MEAN CORPUSCULAR VOLUME 96 FL (80-99); MEAN PLATELET VOLUME 5.5 FL (6.5-10.1); MONOCYTES % (AUTO) 8.3 % (1.0-10.0); NEUTROPHILS % (AUTO) 66.4 % (45.0-75.0); PLATELET COUNT 103 K/UL (150-450); RED BLOOD COUNT 2.72 M/UL (4.70-6.10); RED CELL DISTRIBUTION WIDTH 19.2 % (11.6-14.8); WHITE BLOOD COUNT 5.6 K/UL (4.8-10.8)
[2016-07-27 12:00] VITALS: BP 124/77
[2016-07-27 12:12] LABS: ANION GAP 14 (5-15); CALCIUM 6.8 mg/dL (8.6-10.2); CARBON DIOXIDE 21 mEQ/L (20-30); CHLORIDE 110 mEQ/L (98-107); CREATININE 0.3 mg/dL (0.7-1.2); GLOMERULAR FILTRATION RATE > 60 mL/min (>60); HEMOLYSIS 42; POTASSIUM 4.1 mEQ/L (3.4-4.9); SODIUM 145 mEQ/L (135-145)
--- NOTE | 2016-07-27 13:19 | Infectious Diseases Prog Note ---
Assessment/Plan Assessment/Plan ASSESSMENT: 56 y/o male with: // Recent HCAP / VAP - repeat SPcx: P mirabilis and KPC - SCx PSA and Pr. Mirabilis - CXR: Slightly improved aeration at the left lung base. // Hx of Polymicrobial ( MRSA, M.morganii ,PSA ) bacteremia 06/02 , repeat BCx :neg , SP Rx - TTE(-) SBE // Hx of Recurrent gross hematuria and recurrent UTI - UCx : Sonja ( Colonizer ) // Stage IV sacral debuitus ulcer Wnd Cx : GNR x 2 colonizer // HCV Ab+ // Negative HIV // Elev Alk Ph: - HIDA scan :neg 07/15 // Afebrile without leukocytosis // Elevated ESR, CRP // H. pylori based on last endoscopy. plan to treat when the patient gets discharged as per GI // GI bleed , SP EGD 07/22 : Esophagus ulceration on the band and severe portal hypertensive gastropathy. // Chronic liver disease / cirrhosis with elevated LFTs, US : GB wall thickening ( probably 2nd to ascites ) CT: Liver cirrhosis with stigmata of portal hypertension // Chronic VDRF SP trach, PEG // h/o CVA // [facility] resident // MDRO colonized // NKDA // Full Code PLAN: - continue IV Merrem and Colistin INH d# ( june in AM ) - f/u cultures ( Bl, Ur, Sp ) - monitor CBC, temperatures - monitor BMP - monitor CXR - vent support, trach care, aspiration precaution - wound care Subjective Constitutional: Denies: anorexia, chills, drenching sweats, fatigue, fever, no symptoms, other Allergies: Coded Allergies: No Known Allergies (Unverified , 06/09/16) Objective Vital Signs Last 24 Hour Vital Signs Date Time Temp Pulse Resp B/P Pulse Ox O2 Delivery O2 Flow Rate FiO2 07/27/16 12:31 84 20 40 07/27/16 12:00 40 07/27/16 12:00 97.9 77 27 124/77 97 Mechanical Ventilator 40 07/27/16 12:00 83 07/27/16 10:32 81 22 40 07/27/16 10:25 82 22 100 Mechanical Ventilator 40 07/27/16 10:15 81 21 100 Mechanical Ventilator 40 07/27/16 08:55 89 24 40 07/27/16 08:30 99 128/98 07/27/16 08:00 91 07/27/16 08:00 98.1 99 22 128/98 100 Mechanical Ventilator 40 07/27/16 08:00 40 07/27/16 06:48 92 20 40 07/27/16 05:22 90 25 40 07/27/16 04:00 93 07/27/16 04:00 40 07/27/16 04:00 98.8 90 25 111/58 98 Mechanical Ventilator 40 07/27/16 03:20 93 22 40 07/27/16 00:40 88 23 40 07/27/16 00:38 74 14 40 07/27/16 00:00 89 07/27/16 00:00 98.3 88 22 139/73 100 Mechanical Ventilator 40 07/27/16 00:00 40 07/26/16 22:07 81 16 100 Mechanical Ventilator 40 07/26/16 22:01 84 29 100 Mechanical Ventilator 40 07/26/16 21:39 72 20 40 07/26/16 20:34 82 128/74 07/26/16 20:00 82 07/26/16 20:00 98.4 81 24 126/69 100 Mechanical Ventilator 40 07/26/16 20:00 40 07/26/16 19:32 74 20 40 07/26/16 17:05 83 25 40 07/26/16 16:00 74 07/26/16 16:00 40 07/26/16 16:00 99.0 78 23 101/57 100 Mechanical Ventilator 40 07/26/16 15:07 66 19 40 Height (Feet): 5 Height (Inches): 2.00 Weight (Pounds): 177 HEENT: mucous membranes moist Respiratory/Chest: no accessory muscle use Cardiovascular: no JVD Abdomen: non distended Laboratory Tests Test 07/27/16 11:20 White Blood Count 5.6 K/UL (4.8-10.8) Red Blood Count 2.72 M/UL (4.70-6.10) L Hemoglobin 8.9 G/DL (14.2-18.0) L Hematocrit 26.1 % (42.0-52.0) L Mean Corpuscular Volume 96 FL (80-99) Mean Corpuscular Hemoglobin 32.5 PG (27.0-31.0) H Mean Corpuscular Hemoglobin Concent 34.0 G/DL (32.0-36.0) Red Cell Distribution Width 19.2 % (11.6-14.8) H Platelet Count 103 K/UL (150-450) L Mean Platelet Volume 5.5 FL (6.5-10.1) L Neutrophils (%) (Auto) 66.4 % (45.0-75.0) Lymphocytes (%) (Auto) 15.5 % (20.0-45.0) L Monocytes (%) (Auto) 8.3 % (1.0-10.0) Eosinophils (%) (Auto) 8.9 % (0.0-3.0) H Basophils (%) (Auto) 1.0 % (0.0-2.0) Sodium Level 145 mEQ/L (135-145) Potassium Level 4.1 mEQ/L (3.4-4.9) Chloride Level 110 mEQ/L (98-107) H Carbon Dioxide Level 21 mEQ/L (20-30) Anion Gap 14 (5-15) Blood Urea Nitrogen 14 mg/dL (7-23) Creatinine 0.3 mg/dL (0.7-1.2) L Estimat Glomerular Filtration Rate > 60 mL/min (>60) Glucose Level 118 mg/dL (74-106) H Calcium Level 6.8 mg/dL (8.6-10.2) L Current Medications Medications (Trade) Dose Ordered Sig/Hair Route PRN Reason Start Time Stop Time Status Last Admin Dose Admin Acetaminophen (Tylenol) 650 mg Q4H PRN ORAL fever 07/20/16 22:30 08/19/16 22:29 Al Hydroxide/Mg Hydroxide (Mylanta II) 30 ml Q6H PRN ORAL Gas 07/23/16 07:00 08/22/16 06:59 Ascorbic Acid (Vitamin C) 500 mg DAILY ORAL 07/26/16 10:30 08/25/16 10:29 07/27/16 08:29 Colistimethate Sodium 150 mg 150 mg Q12HR@10,22 INH 07/21/16 22:00 07/28/16 21:59 07/27/16 10:16 Dextrose (Dextrose 50%) STAT PRN IV Hypoglycemia 07/20/16 22:30 08/19/16 22:29 Dextrose/Sodium Chloride (D5 0.45% NS) 1,000 ml @ 75 mls/hr [id number] IV 07/20/16 23:30 08/19/16 23:29 07/27/16 04:23 Diphenhydramine HCl (Benadryl) 25 mg Q6H PRN GT Itching/Pruritis 07/21/16 18:48 08/19/16 22:29 Lactulose (Cephulac) 20 gm QID GT 07/21/16 09:00 08/20/16 08:59 07/27/16 08:29 Levetiracetam (Keppra) 1,500 mg Q12HR GT 07/21/16 09:00 08/20/16 08:59 07/27/16 08:30 Lorazepam (Ativan) 1 mg Q6H PRN GT For Anxiety 07/20/16 22:30 07/27/16 22:29 07/26/16 12:15 Meropenem/Sodium Chloride (Merrem/Sodium Chloride) 110 ml @ 110 mls/hr Q8HR IVPB 07/21/16 14:00 07/27/16 23:59 07/27/16 05:17 Morphine Sulfate (Morphine Sulfate) 2 mg Q4H PRN IVP severe Pain (Pain Scale 7-10) 07/20/16 22:30 07/27/16 22:29 07/23/16 13:18 Nitroglycerin (Ntg) 0.4 mg Q5M X 3 DOSES PRN SL Prn Chest Pain 07/20/16 22:30 08/19/16 22:29 Ondansetron HCl (Zofran) 4 mg Q6H PRN IVP Nausea & Vomiting 07/20/16 22:30 08/19/16 22:29 Pantoprazole (Protonix) 40 mg EVERY 12 HOURS IVP 07/26/16 21:00 08/25/16 20:59 07/27/16 08:31 Propranolol HCl 10 mg 10 mg BID@0900,2100 GT 07/21/16 09:00 08/20/16 08:59 07/27/16 08:30 SHARRI RAMÍREZ M.D. July 27, 2016 13:19
[2016-07-27] MEDS ORDERED: Tubing IV Secondary IV ONE (13:24)
[2016-07-27] MEDS ORDERED: D5 1/2NS 1000ml IV ONE (13:24)
[2016-07-27 16:00] VITALS: BP 102/50
--- NOTE | 2016-07-27 16:07 | Pulmonology Progress Note ---
Assessment/Plan Problems: (1) Gastrointestinal hemorrhage (2) Chronic respiratory failure (3) Liver cirrhosis (4) Feeding by G-tube (5) Ascites Assessment/Plan H/H check h/h stabe for 24 hours endoscopy showed ulcers around old varicces check electrolytes. prbc today check labs in am Subjective ROS Limited/Unobtainable: No Constitutional: Reports: no symptoms HEENT: Repors: no symptoms Respiratory: Reports: no symptoms Cardiovascular: Reports: no symptoms Allergies: Coded Allergies: No Known Allergies (Unverified , 06/09/16) Objective Last 24 Hour Vital Signs Date Time Temp Pulse Resp B/P Pulse Ox O2 Delivery O2 Flow Rate FiO2 07/27/16 14:59 83 21 40 07/27/16 12:31 84 20 40 07/27/16 12:00 40 07/27/16 12:00 97.9 77 27 124/77 97 Mechanical Ventilator 40 07/27/16 12:00 83 07/27/16 10:32 81 22 40 07/27/16 10:25 82 22 100 Mechanical Ventilator 40 07/27/16 10:15 81 21 100 Mechanical Ventilator 40 07/27/16 08:55 89 24 40 07/27/16 08:30 99 128/98 07/27/16 08:00 91 07/27/16 08:00 98.1 99 22 128/98 100 Mechanical Ventilator 40 07/27/16 08:00 40 07/27/16 06:48 92 20 40 07/27/16 05:22 90 25 40 07/27/16 04:00 93 07/27/16 04:00 40 07/27/16 04:00 98.8 90 25 111/58 98 Mechanical Ventilator 40 07/27/16 03:20 93 22 40 07/27/16 00:40 88 23 40 07/27/16 00:38 74 14 40 07/27/16 00:00 89 07/27/16 00:00 98.3 88 22 139/73 100 Mechanical Ventilator 40 07/27/16 00:00 40 07/26/16 22:07 81 16 100 Mechanical Ventilator 40 07/26/16 22:01 84 29 100 Mechanical Ventilator 40 07/26/16 21:39 72 20 40 07/26/16 20:34 82 128/74 07/26/16 20:00 82 07/26/16 20:00 98.4 81 24 126/69 100 Mechanical Ventilator 40 07/26/16 20:00 40 07/26/16 19:32 74 20 40 07/26/16 17:05 83 25 40 Intake and Output 07/26/16 07/27/16 19:00 07:00 Intake Total 2467.5 ml 2164 ml Output Total 950 ml 625 ml Balance 1517.5 ml 1539 ml Intake Free Water 100 ml 150 ml IV Total 1687.5 ml 1294 ml Tube Feeding 660 ml 720 ml Other 20 ml Output Urine Total 350 ml 525 ml Stool Total 600 ml 100 ml HEENT: normocephalic, anicteric Respiratory/Chest: chest wall non-tender, lungs clear, normal breath sounds Cardiovascular: normal peripheral pulses, normal rate Abdomen: distended Genitourinary: normal external genitalia Extremities: no cyanosis Skin: no rash, no lesions, no ulcers 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, no motor/sensory deficits Lymphatic: no neck adenopathy, no groin adenopathy Musculoskeletal: no effusion Laboratory Tests 07/27/16 11:20: White Blood Count 5.6, Red Blood Count 2.72L, Hemoglobin 8.9L, Hematocrit 26.1L , Mean Corpuscular Volume 96, Mean Corpuscular Hemoglobin 32.5H, Mean Corpuscular Hemoglobin Concent 34.0, Red Cell Distribution Width 19.2H, Platelet Count 103L, Mean Platelet Volume 5.5L, Neutrophils (%) (Auto) 66.4, Lymphocytes (%) (Auto) 15.5L, Monocytes (%) (Auto) 8.3, Eosinophils (%) (Auto) 8.9H, Basophils (%) (Auto) 1.0, Sodium Level 145, Potassium Level 4.1, Chloride Level 110H, Carbon Dioxide Level 21, Anion Gap 14, Blood Urea Nitrogen 14, Creatinine 0.3L, Estimat Glomerular Filtration Rate > 60, Glucose Level 118H, Calcium Level 6.8L Current Medications Medications (Trade) Dose Ordered Sig/Hair Route PRN Reason Start Time Stop Time Status Last Admin Dose Admin Acetaminophen (Tylenol) 650 mg Q4H PRN ORAL fever 07/20/16 22:30 08/19/16 22:29 Al Hydroxide/Mg Hydroxide (Mylanta II) 30 ml Q6H PRN ORAL Gas 07/23/16 07:00 08/22/16 06:59 Ascorbic Acid (Vitamin C) 500 mg DAILY ORAL 07/26/16 10:30 08/25/16 10:29 07/27/16 08:29 Colistimethate Sodium 150 mg 150 mg Q12HR@10,22 INH 07/21/16 22:00 07/28/16 21:59 07/27/16 10:16 Dextrose (Dextrose 50%) STAT PRN IV Hypoglycemia 07/20/16 22:30 08/19/16 22:29 Dextrose/Sodium Chloride (D5 0.45% NS) 1,000 ml @ 75 mls/hr [id number] IV 07/20/16 23:30 08/19/16 23:29 07/27/16 04:23 Diphenhydramine HCl (Benadryl) 25 mg Q6H PRN GT Itching/Pruritis 07/21/16 18:48 08/19/16 22:29 Lactulose (Cephulac) 20 gm QID GT 07/21/16 09:00 08/20/16 08:59 07/27/16 13:47 Levetiracetam (Keppra) 1,500 mg Q12HR GT 07/21/16 09:00 08/20/16 08:59 07/27/16 08:30 Lorazepam (Ativan) 1 mg Q6H PRN GT For Anxiety 07/20/16 22:30 07/27/16 22:29 07/26/16 12:15 Meropenem/Sodium Chloride (Merrem/Sodium Chloride) 110 ml @ 110 mls/hr Q8HR IVPB 07/21/16 14:00 07/27/16 23:59 07/27/16 13:47 Morphine Sulfate (Morphine Sulfate) 2 mg Q4H PRN IVP severe Pain (Pain Scale 7-10) 07/20/16 22:30 07/27/16 22:29 07/23/16 13:18 Nitroglycerin (Ntg) 0.4 mg Q5M X 3 DOSES PRN SL Prn Chest Pain 07/20/16 22:30 08/19/16 22:29 Ondansetron HCl (Zofran) 4 mg Q6H PRN IVP Nausea & Vomiting 07/20/16 22:30 08/19/16 22:29 Pantoprazole (Protonix) 40 mg EVERY 12 HOURS IVP 07/26/16 21:00 08/25/16 20:59 07/27/16 08:31 Propranolol HCl 10 mg 10 mg BID@0900,2100 GT 07/21/16 09:00 08/20/16 08:59 07/27/16 08:30 DANTE HSIEH July 27, 2016 16:07
[2016-07-27] MEDS: Morphine Sulfate 2mg/ml Inj IVP PRN (19:54)
[2016-07-27 20:00] VITALS: BP 100/69
[2016-07-28] VITALS: BP 115/48
[2016-07-28 04:00] VITALS: BP 111/58
[2016-07-28 05:42] LABS: BASOPHILS % (AUTO) 0.8 % (0.0-2.0); EOSINOPHILS % (AUTO) 9.5 % (0.0-3.0); LYMPHOCYTES % (AUTO) 10.5 % (20.0-45.0); MEAN CORPUSCULAR HEMOGLOBIN 31.1 PG (27.0-31.0); MEAN CORPUSCULAR VOLUME 94 FL (80-99); MEAN PLATELET VOLUME 6.3 FL (6.5-10.1); MONOCYTES % (AUTO) 8.1 % (1.0-10.0); PLATELET COUNT 115 K/UL (150-450); RED BLOOD COUNT 2.63 M/UL (4.70-6.10); WHITE BLOOD COUNT 6.9 K/UL (4.8-10.8)
[2016-07-28 05:50] LABS: INR 1.4 (0.9-1.1); PROTHROMBIN TIME 14.5 SEC (9.30-11.50)
[2016-07-28 06:03] LABS: MAGNESIUM 1.7 mg/dL (1.7-2.5); PHOSPHORUS 1.7 mg/dL (2.5-4.8)
[2016-07-28 06:12] LABS: ALANINE AMINOTRANSFERASE 14 U/L (3-41); ALBUMIN/GLOBULIN RATIO 0.3 (1.0-2.7); ANION GAP 12 (5-15); ASPARTATE AMINO TRANSFERASE 29 U/L (5-40); CARBON DIOXIDE 23 mEQ/L (20-30); CHLORIDE 113 mEQ/L (98-107); CREATININE 0.2 mg/dL (0.7-1.2); GLOMERULAR FILTRATION RATE > 60 mL/min (>60); HEMOLYSIS 3; POTASSIUM 3.5 mEQ/L (3.4-4.9); SODIUM 148 mEQ/L (135-145); TOTAL PROTEIN 5.3 g/dL (6.6-8.7)
[2016-07-28] MEDS: Colistin for inhalation INH SCH (07:10)
[2016-07-28 08:00] VITALS: BP 119/60
[2016-07-28] MEDS: levETIRAcetam 500mg/5ml Liquid GT SCH (09:01)
[2016-07-28] MEDS: Lactulose 20gm/30ml UDC GT SCH ×3 (09:01→18:00)
[2016-07-28] MEDS: Propranolol 10mg tab GT SCH (09:01)
[2016-07-28] MEDS: Ascorbic Acid 500mg tab ORAL SCH (09:01)
[2016-07-28] MEDS: Pantoprazole Inj IVP SCH (09:02)
--- NOTE | 2016-07-28 10:19 | Pulmonology Progress Note ---
Assessment/Plan Problems: (1) Gastrointestinal hemorrhage (2) Chronic respiratory failure (3) Liver cirrhosis (4) Feeding by G-tube (5) Ascites Assessment/Plan H/H still dropping leaking from paracentesis site endoscopy showed ulcers around old varicces check electrolytes. check h/h in am check labs in am Subjective ROS Limited/Unobtainable: No Constitutional: Reports: no symptoms Allergies: Coded Allergies: No Known Allergies (Unverified , 06/09/16) Objective Last 24 Hour Vital Signs Date Time Temp Pulse Resp B/P Pulse Ox O2 Delivery O2 Flow Rate FiO2 07/28/16 09:40 67 07/28/16 09:12 82 20 40 07/28/16 09:01 69 119/60 07/28/16 09:00 40 07/28/16 08:00 98.1 69 14 119/60 99 Mechanical Ventilator 40 07/28/16 07:10 84 22 40 07/28/16 05:08 80 21 40 07/28/16 04:00 40 07/28/16 04:00 98.0 80 20 111/58 Mechanical Ventilator 07/28/16 04:00 80 07/28/16 03:30 90 22 40 07/28/16 01:30 87 21 40 07/28/16 00:00 80 07/28/16 00:00 97.3 88 20 115/48 100 Mechanical Ventilator 07/28/16 00:00 40 07/27/16 23:30 82 21 40 07/27/16 21:01 90 18 100 Mechanical Ventilator 07/27/16 21:00 90 100/69 07/27/16 21:00 86 20 97 Mechanical Ventilator 07/27/16 20:55 80 22 40 07/27/16 20:00 96.3 89 23 100/69 99 Mechanical Ventilator 07/27/16 20:00 90 07/27/16 20:00 40 07/27/16 19:30 78 19 40 07/27/16 16:54 79 23 40 07/27/16 16:00 84 07/27/16 16:00 97.2 85 24 102/50 100 Mechanical Ventilator 40 07/27/16 16:00 40 07/27/16 14:59 83 21 40 07/27/16 12:31 84 20 40 07/27/16 12:00 40 07/27/16 12:00 97.9 77 27 124/77 97 Mechanical Ventilator 40 07/27/16 12:00 83 07/27/16 10:32 81 22 40 07/27/16 10:25 82 22 100 Mechanical Ventilator 40 Intake and Output 07/27/16 07/28/16 19:00 07:00 Intake Total 1580 ml 870 ml Output Total 450 ml 1840 ml Balance 1130 ml -970 ml Intake Free Water 300 ml 70 ml IV Total 560 ml Tube Feeding 720 ml 720 ml Other 80 ml Output Urine Total 450 ml Stool Total 100 ml Other 1740 ml Objective General Appearance: WD/WN, no acute distress HEENT: normocephalic, atraumatic Respiratory/Chest: chest wall non-tender, rhonchi, trach intact Cardiovascular: normal peripheral pulses, normal rate Abdomen: normal bowel sounds, soft, distended Genitourinary: normal external genitalia Extremities: no cyanosis Skin: no lesions Neurologic/Psychiatric: no motor/sensory deficits, alert Lymphatic: no neck adenopathy Laboratory Tests 07/27/16 11:20: White Blood Count 5.6, Red Blood Count 2.72L, Hemoglobin 8.9L, Hematocrit 26.1L , Mean Corpuscular Volume 96, Mean Corpuscular Hemoglobin 32.5H, Mean Corpuscular Hemoglobin Concent 34.0, Red Cell Distribution Width 19.2H, Platelet Count 103L, Mean Platelet Volume 5.5L, Neutrophils (%) (Auto) 66.4, Lymphocytes (%) (Auto) 15.5L, Monocytes (%) (Auto) 8.3, Eosinophils (%) (Auto) 8.9H, Basophils (%) (Auto) 1.0, Sodium Level 145, Potassium Level 4.1, Chloride Level 110H, Carbon Dioxide Level 21, Anion Gap 14, Blood Urea Nitrogen 14, Creatinine 0.3L, Estimat Glomerular Filtration Rate > 60, Glucose Level 118H, Calcium Level 6.8L 07/28/16 03:50: White Blood Count 6.9, Red Blood Count 2.63L, Hemoglobin 8.2L, Hematocrit 24.9L , Mean Corpuscular Volume 94, Mean Corpuscular Hemoglobin 31.1H, Mean Corpuscular Hemoglobin Concent 33.0, Red Cell Distribution Width 19.0H, Platelet Count 115L, Mean Platelet Volume 6.3L, Neutrophils (%) (Auto) 71.0, Lymphocytes (%) (Auto) 10.5L, Monocytes (%) (Auto) 8.1, Eosinophils (%) (Auto) 9.5H, Basophils (%) (Auto) 0.8, Sodium Level 148H, Potassium Level 3.5, Chloride Level 113H, Carbon Dioxide Level 23, Anion Gap 12, Blood Urea Nitrogen 13, Creatinine 0.2L, Estimat Glomerular Filtration Rate > 60, Glucose Level 117H , Calcium Level 7.0L, Prothrombin Time 14.5H, Prothromb Time International Ratio 1.4H, Activated Partial Thromboplast Time 40H, Phosphorus Level 1.7L, Magnesium Level 1.7, Total Bilirubin 0.9, Aspartate Amino Transf (AST/SGOT) 29, Alanine Aminotransferase (ALT/SGPT) 14, Alkaline Phosphatase 158H, Total Protein 5.3L, Albumin 1.5L, Globulin 3.8, Albumin/Globulin Ratio 0.3L Current Medications Medications (Trade) Dose Ordered Sig/Hair Route PRN Reason Start Time Stop Time Status Last Admin Dose Admin Acetaminophen (Tylenol) 650 mg Q4H PRN ORAL fever 07/20/16 22:30 08/19/16 22:29 Al Hydroxide/Mg Hydroxide (Mylanta II) 30 ml Q6H PRN ORAL Gas 07/23/16 07:00 08/22/16 06:59 Ascorbic Acid (Vitamin C) 500 mg DAILY ORAL 07/26/16 10:30 08/25/16 10:29 07/28/16 09:01 Colistimethate Sodium (Colistin *inhalation use only*) 150 mg Q12HR@10,22 INH 07/21/16 22:00 07/28/16 21:59 07/28/16 07:10 Dextrose (Dextrose 50%) STAT PRN IV Hypoglycemia 07/20/16 22:30 08/19/16 22:29 Diphenhydramine HCl (Benadryl) 25 mg Q6H PRN GT Itching/Pruritis 07/21/16 18:48 08/19/16 22:29 Lactulose (Cephulac) 20 gm QID GT 07/21/16 09:00 08/20/16 08:59 07/28/16 09:01 Levetiracetam (Keppra) 1,500 mg Q12HR GT 07/21/16 09:00 08/20/16 08:59 07/28/16 09:01 Nitroglycerin (Ntg) 0.4 mg Q5M X 3 DOSES PRN SL Prn Chest Pain 07/20/16 22:30 08/19/16 22:29 Ondansetron HCl (Zofran) 4 mg Q6H PRN IVP Nausea & Vomiting 07/20/16 22:30 08/19/16 22:29 Pantoprazole (Protonix) 40 mg EVERY 12 HOURS IVP 07/26/16 21:00 08/25/16 20:59 07/28/16 09:02 Propranolol HCl (Inderal) 10 mg BID@0900,2100 GT 07/21/16 09:00 08/20/16 08:59 07/28/16 09:01 DANTE HSIEH July 28, 2016 10:19
[2016-07-28] MEDS ORDERED: Morphine Sulfate 2mg/ml Inj IVP PRN (11:00)
[2016-07-28 11:59] VITALS: BP 105/52
--- NOTE | 2016-07-28 12:14 | Infectious Diseases Prog Note ---
Assessment/Plan Assessment/Plan ASSESSMENT: 56 y/o male with: // Recent HCAP / VAP - repeat SPcx: P mirabilis and KPC SP Rx - SCx PSA and Pr. Mirabilis - CXR: Slightly improved aeration at the left lung base. // Hx of Polymicrobial ( MRSA, M.morganii ,PSA ) bacteremia 06/02 , repeat BCx :neg , SP Rx - TTE(-) SBE // Hx of Recurrent gross hematuria and recurrent UTI - UCx : Sonja ( Colonizer ) // Stage IV sacral debuitus ulcer Wnd Cx : GNR x 2 colonizer // HCV Ab+ // Negative HIV // Elev Alk Ph: - HIDA scan :neg 07/15 // Afebrile without leukocytosis // Elevated ESR, CRP // H. pylori based on last endoscopy. plan to treat when the patient gets discharged as per GI // GI bleed , SP EGD 07/22 : Esophagus ulceration on the band and severe portal hypertensive gastropathy. // Chronic liver disease / cirrhosis with elevated LFTs, US : GB wall thickening ( probably 2nd to ascites ) CT: Liver cirrhosis with stigmata of portal hypertension // Chronic VDRF SP trach, PEG // h/o CVA // [facility] resident // MDRO colonized // NKDA // Full Code PLAN: - DC IV Merrem and Colistin INH d# 7 / ( will DCafter the last dose today ) - monitor CBC, temperatures - monitor BMP - monitor CXR - vent support, trach care, aspiration precaution - wound care Subjective Constitutional: Denies: anorexia, chills, drenching sweats, fatigue, fever, no symptoms, other Allergies: Coded Allergies: No Known Allergies (Unverified , 06/09/16) Objective Vital Signs Last 24 Hour Vital Signs Date Time Temp Pulse Resp B/P Pulse Ox O2 Delivery O2 Flow Rate FiO2 07/28/16 12:01 76 07/28/16 12:00 40 07/28/16 11:59 97.5 75 24 105/52 98 Mechanical Ventilator 40 07/28/16 10:47 87 27 40 07/28/16 09:40 67 07/28/16 09:12 82 20 40 07/28/16 09:01 69 119/60 07/28/16 09:00 40 07/28/16 08:00 98.1 69 14 119/60 99 Mechanical Ventilator 40 07/28/16 07:10 84 22 40 07/28/16 05:08 80 21 40 07/28/16 04:00 40 07/28/16 04:00 98.0 80 20 111/58 Mechanical Ventilator 07/28/16 04:00 80 07/28/16 03:30 90 22 40 07/28/16 01:30 87 21 40 07/28/16 00:00 80 07/28/16 00:00 97.3 88 20 115/48 100 Mechanical Ventilator 07/28/16 00:00 40 07/27/16 23:30 82 21 40 07/27/16 21:01 90 18 100 Mechanical Ventilator 07/27/16 21:00 90 100/69 07/27/16 21:00 86 20 97 Mechanical Ventilator 07/27/16 20:55 80 22 40 07/27/16 20:00 96.3 89 23 100/69 99 Mechanical Ventilator 07/27/16 20:00 90 07/27/16 20:00 40 07/27/16 19:30 78 19 40 07/27/16 16:54 79 23 40 07/27/16 16:00 84 07/27/16 16:00 97.2 85 24 102/50 100 Mechanical Ventilator 40 07/27/16 16:00 40 07/27/16 14:59 83 21 40 07/27/16 12:31 84 20 40 Height (Feet): 5 Height (Inches): 2.00 Weight (Pounds): 177 HEENT: anicteric Respiratory/Chest: normal breath sounds Cardiovascular: regular rhythm Abdomen: soft, non tender Laboratory Tests Test 07/28/16 03:50 White Blood Count 6.9 K/UL (4.8-10.8) Red Blood Count 2.63 M/UL (4.70-6.10) L Hemoglobin 8.2 G/DL (14.2-18.0) L Hematocrit 24.9 % (42.0-52.0) L Mean Corpuscular Volume 94 FL (80-99) Mean Corpuscular Hemoglobin 31.1 PG (27.0-31.0) H Mean Corpuscular Hemoglobin Concent 33.0 G/DL (32.0-36.0) Red Cell Distribution Width 19.0 % (11.6-14.8) H Platelet Count 115 K/UL (150-450) L Mean Platelet Volume 6.3 FL (6.5-10.1) L Neutrophils (%) (Auto) 71.0 % (45.0-75.0) Lymphocytes (%) (Auto) 10.5 % (20.0-45.0) L Monocytes (%) (Auto) 8.1 % (1.0-10.0) Eosinophils (%) (Auto) 9.5 % (0.0-3.0) H Basophils (%) (Auto) 0.8 % (0.0-2.0) Prothrombin Time 14.5 SEC (9.30-11.50) H Prothromb Time International Ratio 1.4 (0.9-1.1) H Activated Partial Thromboplast Time 40 SEC (23-33) H Sodium Level 148 mEQ/L (135-145) H Potassium Level 3.5 mEQ/L (3.4-4.9) Chloride Level 113 mEQ/L (98-107) H Carbon Dioxide Level 23 mEQ/L (20-30) Anion Gap 12 (5-15) Blood Urea Nitrogen 13 mg/dL (7-23) Creatinine 0.2 mg/dL (0.7-1.2) L Estimat Glomerular Filtration Rate > 60 mL/min (>60) Glucose Level 117 mg/dL (74-106) H Calcium Level 7.0 mg/dL (8.6-10.2) L Phosphorus Level 1.7 mg/dL (2.5-4.8) L Magnesium Level 1.7 mg/dL (1.7-2.5) Total Bilirubin 0.9 mg/dL (0.0-1.2) Aspartate Amino Transf (AST/SGOT) 29 U/L (5-40) Alanine Aminotransferase (ALT/SGPT) 14 U/L (3-41) Alkaline Phosphatase 158 U/L (40-129) H Total Protein 5.3 g/dL (6.6-8.7) L Albumin 1.5 g/dL (3.5-5.2) L Globulin 3.8 g/dL Albumin/Globulin Ratio 0.3 (1.0-2.7) L Current Medications Medications (Trade) Dose Ordered Sig/Hair Route PRN Reason Start Time Stop Time Status Last Admin Dose Admin Acetaminophen (Tylenol) 650 mg Q4H PRN ORAL fever 07/20/16 22:30 08/19/16 22:29 Al Hydroxide/Mg Hydroxide (Mylanta II) 30 ml Q6H PRN ORAL Gas 07/23/16 07:00 08/22/16 06:59 Ascorbic Acid (Vitamin C) 500 mg DAILY ORAL 07/26/16 10:30 08/25/16 10:29 07/28/16 09:01 Colistimethate Sodium (Colistin *inhalation use only*) 150 mg Q12HR@10,22 INH 07/21/16 22:00 07/28/16 21:59 07/28/16 07:10 Dextrose (Dextrose 50%) STAT PRN IV Hypoglycemia 07/20/16 22:30 08/19/16 22:29 Diphenhydramine HCl (Benadryl) 25 mg Q6H PRN GT Itching/Pruritis 07/21/16 18:48 08/19/16 22:29 Lactulose (Cephulac) 20 gm QID GT 07/21/16 09:00 08/20/16 08:59 07/28/16 09:01 Levetiracetam (Keppra) 1,500 mg Q12HR GT 07/21/16 09:00 08/20/16 08:59 07/28/16 09:01 Morphine Sulfate (Morphine Sulfate) 2 mg Q4H PRN IVP PAIN 4-10 07/28/16 11:00 08/04/16 10:59 07/28/16 11:47 Nitroglycerin (Ntg) 0.4 mg Q5M X 3 DOSES PRN SL Prn Chest Pain 07/20/16 22:30 08/19/16 22:29 Ondansetron HCl (Zofran) 4 mg Q6H PRN IVP Nausea & Vomiting 07/20/16 22:30 08/19/16 22:29 Pantoprazole (Protonix) 40 mg EVERY 12 HOURS IVP 07/26/16 21:00 08/25/16 20:59 07/28/16 09:02 Propranolol HCl (Inderal) 10 mg BID@0900,2100 GT 07/21/16 09:00 08/20/16 08:59 5/30/17 09:01 SHARRI RAMÍREZ M.D. July 28, 2016 12:14
--- NOTE | 2016-07-28 14:39 | GI Progress Note ---
Assessment/Plan Problems: (1) Helicobacter pylori (H. pylori) ICD Codes: A04.8 - Other specified bacterial intestinal infections (2) Esophageal varices determined by endoscopy ICD Codes: I85.00 - Esophageal varices without bleeding SNOMED: 43118020, 700312991 (3) Anemia due to blood loss, acute ICD Codes: D62 - Acute posthemorrhagic anemia SNOMED: 940212186 (4) Feeding by G-tube ICD Codes: Z93.1 - Gastrostomy status SNOMED: 928275776, 984230817 (5) Ascites ICD Codes: R18.8 - Other ascites SNOMED: 555321840 (6) Elevated LFTs ICD Codes: R94.5 - Abnormal results of liver function studies SNOMED: 660061434 (7) Liver cirrhosis ICD Codes: K74.60 - Unspecified cirrhosis of liver SNOMED: 60851402 (8) Anemia ICD Codes: D64.9 - Anemia, unspecified SNOMED: 555140697 (9) hep c Status: stable, unchanged Status Narrative Discussed with Dr. Arndt. Assessment/Plan S/P EGD SUMMARY FINDINGS: 1. There is advanced from prior banding still in the esophagus with some ulceration on the band as already fall enough. 2. Severe portal hypertensive gastropathy. GTF fu swallow eval supportive care monitor H&H, PRN blood transfusion propranolol paracentesis prn fu labs Subjective Subjective limited Objective Last 24 Hour Vital Signs Date Time Temp Pulse Resp B/P Pulse Ox O2 Delivery O2 Flow Rate FiO2 07/28/16 12:44 67 18 40 07/28/16 12:17 97.5 07/28/16 12:01 76 07/28/16 12:00 40 07/28/16 11:59 97.5 75 24 105/52 98 Mechanical Ventilator 40 07/28/16 10:47 87 27 40 07/28/16 09:40 67 07/28/16 09:12 82 20 40 07/28/16 09:01 69 119/60 07/28/16 09:00 40 07/28/16 08:00 98.1 69 14 119/60 99 Mechanical Ventilator 40 07/28/16 07:10 84 22 40 07/28/16 05:08 80 21 40 07/28/16 04:00 40 07/28/16 04:00 98.0 80 20 111/58 Mechanical Ventilator 07/28/16 04:00 80 07/28/16 03:30 90 22 40 07/28/16 01:30 87 21 40 07/28/16 00:00 80 07/28/16 00:00 97.3 88 20 115/48 100 Mechanical Ventilator 07/28/16 00:00 40 07/27/16 23:30 82 21 40 07/27/16 21:01 90 18 100 Mechanical Ventilator 07/27/16 21:00 90 100/69 07/27/16 21:00 86 20 97 Mechanical Ventilator 07/27/16 20:55 80 22 40 07/27/16 20:00 96.3 89 23 100/69 99 Mechanical Ventilator 07/27/16 20:00 90 07/27/16 20:00 40 07/27/16 19:30 78 19 40 07/27/16 16:54 79 23 40 07/27/16 16:00 84 07/27/16 16:00 97.2 85 24 102/50 100 Mechanical Ventilator 40 07/27/16 16:00 40 07/27/16 14:59 83 21 40 Intake and Output 07/27/16 07/28/16 19:00 07:00 Intake Total 1580 ml 870 ml Output Total 450 ml 1840 ml Balance 1130 ml -970 ml Intake Free Water 300 ml 70 ml IV Total 560 ml Tube Feeding 720 ml 720 ml Other 80 ml Output Urine Total 450 ml Stool Total 100 ml Other 1740 ml Laboratory Tests Test 07/28/16 03:50 White Blood Count 6.9 K/UL (4.8-10.8) Red Blood Count 2.63 M/UL (4.70-6.10) L Hemoglobin 8.2 G/DL (14.2-18.0) L Hematocrit 24.9 % (42.0-52.0) L Mean Corpuscular Volume 94 FL (80-99) Mean Corpuscular Hemoglobin 31.1 PG (27.0-31.0) H Mean Corpuscular Hemoglobin Concent 33.0 G/DL (32.0-36.0) Red Cell Distribution Width 19.0 % (11.6-14.8) H Platelet Count 115 K/UL (150-450) L Mean Platelet Volume 6.3 FL (6.5-10.1) L Neutrophils (%) (Auto) 71.0 % (45.0-75.0) Lymphocytes (%) (Auto) 10.5 % (20.0-45.0) L Monocytes (%) (Auto) 8.1 % (1.0-10.0) Eosinophils (%) (Auto) 9.5 % (0.0-3.0) H Basophils (%) (Auto) 0.8 % (0.0-2.0) Prothrombin Time 14.5 SEC (9.30-11.50) H Prothromb Time International Ratio 1.4 (0.9-1.1) H Activated Partial Thromboplast Time 40 SEC (23-33) H Sodium Level 148 mEQ/L (135-145) H Potassium Level 3.5 mEQ/L (3.4-4.9) Chloride Level 113 mEQ/L (98-107) H Carbon Dioxide Level 23 mEQ/L (20-30) Anion Gap 12 (5-15) Blood Urea Nitrogen 13 mg/dL (7-23) Creatinine 0.2 mg/dL (0.7-1.2) L Estimat Glomerular Filtration Rate > 60 mL/min (>60) Glucose Level 117 mg/dL (74-106) H Calcium Level 7.0 mg/dL (8.6-10.2) L Phosphorus Level 1.7 mg/dL (2.5-4.8) L Magnesium Level 1.7 mg/dL (1.7-2.5) Total Bilirubin 0.9 mg/dL (0.0-1.2) Aspartate Amino Transf (AST/SGOT) 29 U/L (5-40) Alanine Aminotransferase (ALT/SGPT) 14 U/L (3-41) Alkaline Phosphatase 158 U/L (40-129) H Total Protein 5.3 g/dL (6.6-8.7) L Albumin 1.5 g/dL (3.5-5.2) L Globulin 3.8 g/dL Albumin/Globulin Ratio 0.3 (1.0-2.7) L Height (Feet): 5 Height (Inches): 2.00 Weight (Pounds): 177 General Appearance: no apparent distress, alert Cardiovascular: normal rate Respiratory/Chest: normal breath sounds, no respiratory distress Abdominal Exam: GT site - c/d/i Paulette Romero N.P. July 28, 2016 14:39
[2016-07-28 16:00] VITALS: BP 101/59
--- NOTE | 2016-07-30 23:30 | Discharge Summary 2 SIG ---
DATE OF ADMISSION: 07/20/2016 DATE OF DISCHARGE: 07/28/2016 CONSULTANTS: 1. Anthony Arndt M.D. 2. Marc Urena M.D. 3. Elia Montana M.D. 4. Dianna Chung M.D. BRIEF HOSPITAL COURSE: The patient is a 56-year-old male with history of chronic trach on vent and PEG, who was brought in by EMS after episode of rectal bleed. On evaluation at ED, labs showed anemia. Hemoglobin was 6 and hematocrit of 18. EKG done showed normal sinus rhythm. Chest x-ray showed elevated right hemidiaphragm. The patient was recently discharged to a long term with culture showing multiple drug-resistant gram-negative including Pseudomonas, Klebsiella and Proteus and had a recent MRSA bacteremia. He was continued by Infectious Disease specialist with meropenem and inhaled colistin for one more week. GI evaluation was done. The abdominal ultrasound from prior admission showed chronic liver disease and cirrhosis with stigmata of portal hypertension including splenomegaly, ascites and portosystemic crisis. He was given Protonix and octreotide drip and was continued on lactulose and Xifaxan. He underwent upper GI endoscopy with findings of esophageal varices. He underwent ultrasound-guided thoracentesis on 07/24/2016 yielding 6.5 liters of fluid. Tube feedings were started. He continued to have a drop in H and H. He was recently admitted for hematuria. Dr. Montana was again consulted. On evaluation, the patient had minimal hematuria with no clots and no evidence of retention. Sputum culture showed growth of Proteus and KPC. Wound culture with growth of Klebsiella and Proteus ESBL. Repeat blood culture was negative. He came in with a stage IV sacral decubitus ulcer and wound care was done. He received total 5 units of packed RBC blood transfusion during inpatient stay. He finished 1 week of antibiotic course with meropenem and colistin. He was then discharged back to long term. FINAL DISPOSITION: DC back to SNF. FINAL DIAGNOSES: 1. Acute anemia requiring blood transfusion. 2. Esophageal varices. 3. Liver cirrhosis. 4. Chronic respiratory failure on tracheostomy and ventilator. 5. Feeding via gastrostomy tube. 6. Recurrent ascites status post paracentesis. 7. Recent healthcare-associated pneumonia/ventilator-associated pneumonia. 8. Recurrent hematuria. 9. Hepatitis C virus antibody positive. 10. Sacral stage IV decubitus ulcer, present on admission. 11. Chronic liver disease. Uma Breen M.D. I have been assigned to dictate discharge summary on this account and I was not involved in the patient's management. Kayli Hoff N.P. DR: CASEY JOB#: [id number] CC: JEROD
== END 2016-07-28 18:25 | disposition home or self-care (01) | DRG 253 ==
LOC: EDBD 18:08 → EMR 19:22 → 2W 19:24 → EDBEDREQ 19:39
PROC: 5A1955Z Respiratory Ventilation, Greater than 96 Consecutive Hours (ICD-10-PCS; principal; 2016-07-20)
PROC: 0DB68ZX Excision of Stomach, Via Natural or Artificial Opening Endoscopic, Diagnostic (ICD-10-PCS; 2016-07-22)
PROC: 0W9G3ZZ Drainage of Peritoneal Cavity, Percutaneous Approach (ICD-10-PCS; 2016-07-24)
DX: K92.2 Gastrointestinal hemorrhage, unspecified (principal); Z99.11 Dependence on respirator [ventilator] status; J96.10 Chronic respiratory failure, unspecified whether with hypoxia or hypercapnia; L89.154 Pressure ulcer of sacral region, stage 4; Z93.0 Tracheostomy status; R18.8 Other ascites; K74.60 Unspecified cirrhosis of liver; I85.10 Secondary esophageal varices without bleeding; Z93.1 Gastrostomy status; D69.6 Thrombocytopenia, unspecified; D62 Acute posthemorrhagic anemia; K76.6 Portal hypertension; B19.20 Unspecified viral hepatitis C without hepatic coma; K31.89 Other diseases of stomach and duodenum; E88.09 Other disorders of plasma-protein metabolism, not elsewhere classified; R31.9 Hematuria, unspecified
CPT/HCPCS: 36415; 71010; 76942; 80048; 80053; 82248; 83735; 84100; 85007; 85025; 85610; 85730; 86850; 86900; 86901; 86920; 87040; 87070; 87081; 87086; 87181; 87205; 93005; 93970; 94002; 94003; 94150; 94640; J7620

== ENCOUNTER 2016-08-07 07:32 | Inpatient (IN) | payer MEDICAID ==
[~2016-08-07] VITALS: Ht 165.1 cm; Wt 91.6 kg
[~2016-08-07 07:32] MED LIST changes: +FERROUS SU300 MG/5 M GT; +LORAZEPAM1 MG GT; +NAPROXEN SODIU220 M1 GT
[2016-08-07 08:01] VITALS: BP 115/63
--- NOTE | 2016-08-07 08:01 | Emergency Room Report ---
History of Present Illness General Chief Complaint: General Complaint Source: Patient, Medical Record, EMS Present Illness HPI This patient presents from a shelter facility. He has a history of respiratory failure and is trach/ventilator dependent. He also has a G-tube. He has a history of hepatitis C, liver cell carcinoma and cirrhosis. Has a history of GI bleed. He presents because of increasing abdominal size. The patient denies pain. There's been no report of fever or chills. The patient has a history of ascites and has had undergo paracentesis in the past. He has no other complaints. Allergies: Coded Allergies: No Known Allergies (Unverified , 06/09/16) Patient History Past Medical History: see triage record, COPD, GERD, GI bleed, seizures, other - HCV, cirrhosis, liver cell carcinoma Past Surgical History: other - Trach, PEG Social History: Denies: alcohol use, drug use, smoking Reviewed Nursing Documentation: PMH: Agreed, PSxH: Agreed Nursing Documentation-PMH Past Medical History: No History, Except For Hx Hypertension: Yes Hx COPD: Yes - tracheostomy Hx Cancer: Yes - liver cirrhosis Hx Gastrointestinal Problems: Yes - GERD G tube History Of Psychiatric Problem: Yes - anxiety Hx Neurological Problems: Yes Hx Cerebrovascular Accident: Yes - NON TRAUMATIC SUBDURAL HEMORRHAGE Hx Seizures: Yes - epilepsy Hx Dysphasia: Yes Hx Weakness: Yes Review of Systems All Other Systems: negative except mentioned in HPI Physical Exam Vital Signs Date Time Temp Pulse Resp B/P Pulse Ox O2 Delivery O2 Flow Rate FiO2 08/07/16 07:27 98.4 102 16 130/78 98 Mechanical Ventilator [id number] EP Interpretation: reviewed, normal General Appearance: no apparent distress, alert, GCS 15, non-toxic Head: normocephalic, atraumatic Eyes: bilateral eye PERRL, bilateral eye normal inspection ENT: hearing grossly normal, normal pharynx, no angioedema Neck: full range of motion, supple/symm/no masses, tracheotomy - clear tracheostomy stoma/site Respiratory: chest non-tender, no respiratory distress, no retraction, no accessory muscle use, rhonchi, speaking full sentences Cardiovascular #1: regular rate, rhythm, no edema Gastrointestinal: normal bowel sounds, non tender, soft, no guarding, no rebound, other - Distended. Non-tender. Rectal: deferred Musculoskeletal: normal range of motion, non-tender Neurologic: alert, oriented x3, responsive, motor strength/tone normal, sensory intact, speech normal Psychiatric: judgement/insight normal, memory normal, mood/affect normal, no suicidal/homicidal ideation Skin: warm/dry, well hydrated, other - See RN note for skin/DU findings. + sacral DU. Medical Decision Making Diagnostic Impression: Primary Impression: Ascites Additional Impressions: UTI (urinary tract infection) Liver cirrhosis Hyponatremia Chronic respiratory failure ER Course This patient has a history of cirrhosis and liver cell carcinoma with malignant ascites. The patient presents with an enlarging abdomen consistent with ascites. Patient is nontender on examination and there is no fever. I do not suspect spontaneous bacterial peritonitis. Patient underwent basic laboratory workup to include CBC, CMP and coag. This patient has a baseline coagulopathy. Given the patient's chronic medical conditions, anemia, coagulopathy, electrolyte abnormalities and history of liver cirrhosis I was uncomfortable doing a large-volume paracentesis and sending this patient back to the shelter facility. Therefore, I admitted this patient for further evaluation and treatment. He is also treated for urinary tract infection. He is admitted for further evaluation, treatment and monitoring. Labs Test 08/07/16 07:58 White Blood Count 7.7 K/UL (4.8-10.8) Red Blood Count 2.80 M/UL (4.70-6.10) Hemoglobin 8.6 G/DL (14.2-18.0) Hematocrit 26.9 % (42.0-52.0) Mean Corpuscular Volume 96 FL (80-99) Mean Corpuscular Hemoglobin 30.6 PG (27.0-31.0) Mean Corpuscular Hemoglobin Concent 31.9 G/DL (32.0-36.0) Red Cell Distribution Width 18.9 % (11.6-14.8) Platelet Count 126 K/UL (150-450) Mean Platelet Volume 5.8 FL (6.5-10.1) Neutrophils (%) (Auto) 77.1 % (45.0-75.0) Lymphocytes (%) (Auto) 8.3 % (20.0-45.0) Monocytes (%) (Auto) 7.9 % (1.0-10.0) Eosinophils (%) (Auto) 6.2 % (0.0-3.0) Basophils (%) (Auto) 0.5 % (0.0-2.0) Urine Color Yellow Urine Appearance Slightly cloudy Urine pH 5 (4.5-8.0) Urine Specific [place] 1.020 (1.005-1.035) Urine Protein 3+ (NEGATIVE) Urine Glucose (UA) Negative (NEGATIVE) Urine Ketones 1+ (NEGATIVE) Urine Occult Blood 5+ (NEGATIVE) Urine Nitrite Positive (NEGATIVE) Urine Bilirubin Negative (NEGATIVE) Urine Urobilinogen 1 MG/DL (0.0-1.0) Urine Leukocyte Esterase 3+ (NEGATIVE) Urine RBC 40-60 /HPF (0 - 0) Urine WBC 20-30 /HPF (0 - 0) Urine Squamous Epithelial Cells Occasional /LPF Urine Bacteria Many /HPF (NONE) Sodium Level 130 mEQ/L (135-145) Potassium Level 3.6 mEQ/L (3.4-4.9) Chloride Level 91 mEQ/L (98-107) Carbon Dioxide Level 27 mEQ/L (20-30) Anion Gap 12 (5-15) Blood Urea Nitrogen 16 mg/dL (7-23) Creatinine 0.3 mg/dL (0.7-1.2) Estimat Glomerular Filtration Rate > 60 mL/min (>60) Glucose Level 93 mg/dL (74-106) Calcium Level 8.3 mg/dL (8.6-10.2) Total Bilirubin 1.3 mg/dL (0.0-1.2) Direct Bilirubin 0.4 mg/dL (0.1-0.3) Aspartate Amino Transf (AST/SGOT) 31 U/L (5-40) Alanine Aminotransferase (ALT/SGPT) 14 U/L (3-41) Alkaline Phosphatase 287 U/L (40-129) Total Protein 7.5 g/dL (6.6-8.7) Albumin 1.9 g/dL (3.5-5.2) Globulin 5.6 g/dL Albumin/Globulin Ratio 0.3 (1.0-2.7) Lipase 21 U/L (< 60) EKG Diagnostic Results Rate: normal Rhythm: NSR ST Segments: no acute changes Rhythm Strip Diag. Results EP Interpretation: yes Rate: 90's Rhythm: NSR, no PVC's, no ectopy CT/MRI/US Diagnostic Results CT/MRI/US Diagnostic Results : Imaging Test Ordered: CT abd/pelvis Impression Impression: Massive ascites, increased since prior study of 07/13/2016. Note that patient has history of multiple paracenteses Evidence of hepatic cirrhosis, also previously reported. No definite focal abnormality. However, assessment for hepatocellular carcinoma is limited in the absence of arterial phase imaging. Anasarca, with, in addition to the ascites, diffuse subcutaneous cutaneous fat and mesenteric and abdominal fat edema, and bilateral pleural effusions Increased bilateral pleural fluid, patient on the right. Pleural effusions may be loculated. Resultant bilateral basilar pulmonary atelectasis Evidence of portal hypertension, with splenomegaly and varices Previously demonstrated right renal calculus and mild right hydronephrosis is no longer evident Incomplete evacuation of the bladder, despite the presence of a Colon catheter gastrostomy, also previously described Cholelithiasis Last Vital Signs Date Time Temp Pulse Resp B/P Pulse Ox O2 Delivery O2 Flow Rate FiO2 08/07/16 07:27 98.4 102 16 130/78 98 Mechanical Ventilator Disposition: ADMITTED INPATIENT Condition: Serious NADIR VARGAS D.O. Aug 07, 2016 08:01
[2016-08-07 08:40] LABS: APPEARANCE,URINE SLIGHTLY CLOUDY; BASOPHILS % (AUTO) 0.5 % (0.0-2.0); EOSINOPHILS % (AUTO) 6.2 % (0.0-3.0); KETONES,URINE 1+ (NEGATIVE); LEUKOCYTE ESTERASE ,URINE 3+ (NEGATIVE); LYMPHOCYTES % (AUTO) 8.3 % (20.0-45.0); MEAN CORPUSCULAR HEMOGLOBIN 30.6 PG (27.0-31.0); MEAN CORPUSCULAR HGB CONC 31.9 G/DL (32.0-36.0); MEAN CORPUSCULAR VOLUME 96 FL (80-99); MEAN PLATELET VOLUME 5.8 FL (6.5-10.1); MONOCYTES % (AUTO) 7.9 % (1.0-10.0); NEUTROPHILS % (AUTO) 77.1 % (45.0-75.0); NITRITE,URINE POSITIVE (NEGATIVE); PH,URINE 5 (4.5-8.0); PLATELET COUNT 126 K/UL (150-450); PROTEIN,URINE 3+ (NEGATIVE); RED CELL DISTRIBUTION WIDTH 18.9 % (11.6-14.8); UROBILINOGEN,URINE 1 MG/DL (0.0-1.0); WHITE BLOOD COUNT 7.7 K/UL (4.8-10.8)
[2016-08-07 08:51] LABS: BACTERIA,URINE MANY /HPF; RBC,URINE 40-60 /HPF (0 - 0); SQUAMOUS EPITHELIAL CELL,UR OCCASIONAL /LPF (NONE/OCC); WBC,URINE 20-30 /HPF (0 - 0)
[2016-08-07 08:53] LABS: ALANINE AMINOTRANSFERASE 14 U/L (3-41); ALBUMIN/GLOBULIN RATIO 0.3 (1.0-2.7); ANION GAP 12 (5-15); ASPARTATE AMINO TRANSFERASE 31 U/L (5-40); CALCIUM 8.3 mg/dL (8.6-10.2); CARBON DIOXIDE 27 mEQ/L (20-30); CHLORIDE 91 mEQ/L (98-107); CREATININE 0.3 mg/dL (0.7-1.2); GLOMERULAR FILTRATION RATE > 60 mL/min (>60); HEMOLYSIS 2; LIPASE 21 U/L (< 60); POTASSIUM 3.6 mEQ/L (3.4-4.9); SODIUM 130 mEQ/L (135-145); TOTAL PROTEIN 7.5 g/dL (6.6-8.7)
[2016-08-07 09:06] LABS: BILIRUBIN,DIRECT 0.4 mg/dL (0.1-0.3)
[2016-08-07 09:40] VITALS: BP 112/65
[2016-08-07] MEDS ORDERED: cefTRIAXone 1 GM in NS 55 ML IVPB ONE (10:00)
[2016-08-07] MEDS ORDERED: LORazepam Inj 2mg/ml 1ml IV PRN (10:15)
[2016-08-07] MEDS ORDERED: Mylanta II UD 30ml ORAL PRN (10:15)
[2016-08-07] MEDS ORDERED: NS 55 ML IV ONE (11:28)
--- NOTE | 2016-08-07 11:29 | Diagnostic Imaging Report ---
Clinical Indication: Abdominal distention. History of gastrostomy, hepatitis C, hepatocellular carcinoma, and cirrhosis. Technique: No oral contrast utilized, per emergency room physician request IV administration nonionic contrast. Venous phase spiral acquisition obtained through the abdomen and pelvis. Multiplanar reconstructions were generated. Total dose length product 1184 mGycm. CTDIvol(s) 19 mGy. Dose reduction achieved using automated exposure control Comparison: 07/13/2016 Findings: Again demonstrated is massive ascites, considerably increased in amount since the previous study. No definite loculated fluid collections. There is colonic diverticulosis. No evidence of diverticulitis, although this would be difficult to exclude given the surrounding abnormalities. No small bowel distention. No free intraperitoneal air. Again demonstrated is a gastrostomy. The distal esophagus, stomach, duodenum are unremarkable. There is anasarca, with edema of the bilateral subcutaneous fat, bilateral pleural effusions, and congestion of the mesenteric and retroperitoneal fat, in addition to the ascites. The liver is somewhat small, with surface nodularity. It demonstrates diffuse parenchymal heterogeneity without discrete focal abnormality. The gallbladder demonstrates multiple gallstones. There is no biliary ductal dilatation. The pancreas is somewhat atrophic. The spleen is enlarged, 15 cm long axis dimension. There are perigastric and probable periesophageal varices. The adrenals are unremarkable. The kidneys are unremarkable. Previously reported right renal calyceal calculus is not evident currently. Previously demonstrated mild right hydronephrosis is not evident currently. Ureters are unremarkable. The bladder contains a Colon catheter, is incompletely evacuated despite this. No pelvic mass or adenopathy. As mentioned previously, there are bilateral pleural effusions. There is suggestion of septation and visceral and parietal pleural wall thickening, suggestive of loculation. The right is slightly larger than the left. There is resultant considerable compressive bibasilar atelectatic change. When compared to prior study, the ascites has increased in amount. Anasarca is worse. Previously demonstrated right renal calculus and right hydronephrosis are no longer evident. Other findings are essentially unchanged Impression: Massive ascites, increased since prior study of 07/13/2016. Note that patient has history of multiple paracenteses Evidence of hepatic cirrhosis, also previously reported. No definite focal abnormality. However, assessment for hepatocellular carcinoma is limited in the absence of arterial phase imaging. Anasarca, with, in addition to the ascites, diffuse subcutaneous cutaneous fat and mesenteric and abdominal fat edema, and bilateral pleural effusions Increased bilateral pleural fluid, patient on the right. Pleural effusions may be loculated. Resultant bilateral basilar pulmonary atelectasis Evidence of portal hypertension, with splenomegaly and varices Previously demonstrated right renal calculus and mild right hydronephrosis is no longer evident Incomplete evacuation of the bladder, despite the presence of a Colon catheter gastrostomy, also previously described Cholelithiasis The CT scanner at [facility] is accredited by the [employer] and the scans are performed using protocols designed to limit radiation exposure to as low as reasonably achievable to attain images of sufficient resolution adequate for diagnostic evaluation.
[2016-08-07] MEDS ORDERED: Lactulose 20gm/30ml UDC ORAL SCH (12:00)
[2016-08-07 12:17] VITALS: BP 104/59
[2016-08-07 13:00] VITALS: BP 109/65
[2016-08-07] MEDS ORDERED: Lactulose 20gm/30ml UDC GT SCH (13:00)
--- NOTE | 2016-08-07 14:16 | History and Physical ---
History of Present Illness General Date patient seen: Aug 07, 2016 Reason for Hospitalization: General Complaint Present Illness HPI 56 year ofl male with hx of end stage liver disease, chronic vent trach PEG, presented with CC of increasing abdominal girth. Allergies: Coded Allergies: No Known Allergies (Unverified , 06/09/16) Medication History Scheduled Ascorbic Acid* (Vitamin C*), 500 MG GT DAILY, (Reported) Colistimethate Sodium (Colistin), 150 MG HHN BID Cran/Vitc/Mannose/Inulin/Brom (Uti-Stat Liquid), 3,875 MG GT DAILY, (Reported) Famotidine (Famotidine), 20 MG GT DAILY, (Reported) Ferrous Sulfate (Ferrous Sulfate), 7.5 ML GT DAILY, (Reported) Folic Acid* (Folic Acid*), 1 MG GT DAILY, (Reported) Furosemide* (Lasix*), 20 MG GT DAILY, (Reported) Lactulose (Lactulose*), 30 ML GT QID, (Reported) Levetiracetam* (Levetiracetam*), 1,500 MG GT Q12HR, (Reported) Meropenem (Merrem), 1 GM IV Q8HR Multivitamin With Minerals (Multivitamins With Minerals*), 1 TAB GT DAILY, ( Reported) Propranolol Hcl* (Inderal*), 10 MG GT BID, (Reported) Vancomycin Hcl/D5w (Vancomycin-D5w 1 G/250 Ml), 1 GM IVPB Q24H Zinc Sulfate (Zinc Sulfate*), 220 MG GT DAILY, (Reported) Scheduled PRN Acetaminophen 160MG/5ML* (Acetaminophen*), 20 ML ORAL EVERY 4 HOURS PRN for For Pain, (Reported) Bisacodyl (Dulcolax), 10 MG RC DAILY PRN for Constipation, (Reported) Lorazepam* (Lorazepam*), 1 MG GT Q6HR PRN for For Anxiety, (Reported) Magnesium Hydroxide* (Milk Of Magnesia*), 30 ML GT QHS PRN for Constipation, ( Reported) Na Phos,M-B/Na Phos,Di-Ba* (Fleet Enema*), 133 ML RECTAL EVERY TWO DAYS PRN for Constipation, (Reported) Naproxen Sodium (Naproxen Sodium), 220 MG GT PRN PRN for For Pain, (Reported) Patient History Healthcare decision maker Raghavendra Ramirez (brother) Resuscitation status Full Code Advanced Directive on File No Physical Exam General Appearance: cachetic Lines, tubes and drains: peripheral HEENT: normocephalic, atraumatic Neck: non-tender, normal alignment Cardiovascular/Chest: normal peripheral pulses Abdomen: decreased bowel sounds, distended Extremities: moderate edema Last 24 Hour Vital Signs Date Time Temp Pulse Resp B/P Pulse Ox O2 Delivery O2 Flow Rate FiO2 08/07/16 13:00 98.2 99 16 109/65 100 Mechanical Ventilator 40 08/07/16 12:46 98.4 89 14 104/59 100 Mechanical Ventilator 40 08/07/16 12:30 92 14 40 08/07/16 12:17 89 19 104/59 100 Mechanical Ventilator 40 08/07/16 10:31 102 33 40 08/07/16 09:40 98.4 99 19 112/65 100 Mechanical Ventilator 40 08/07/16 08:33 86 23 40 08/07/16 08:01 98.4 99 14 115/63 100 Mechanical Ventilator 40 08/07/16 07:52 106 26 Mechanical Ventilator 40 08/07/16 07:43 106 26 40 08/07/16 07:27 98.4 102 16 130/78 98 Mechanical Ventilator Laboratory Tests Test 08/07/16 07:58 White Blood Count 7.7 K/UL (4.8-10.8) Red Blood Count 2.80 M/UL (4.70-6.10) L Hemoglobin 8.6 G/DL (14.2-18.0) L Hematocrit 26.9 % (42.0-52.0) L Mean Corpuscular Volume 96 FL (80-99) Mean Corpuscular Hemoglobin 30.6 PG (27.0-31.0) Mean Corpuscular Hemoglobin Concent 31.9 G/DL (32.0-36.0) L Red Cell Distribution Width 18.9 % (11.6-14.8) H Platelet Count 126 K/UL (150-450) L Mean Platelet Volume 5.8 FL (6.5-10.1) L Neutrophils (%) (Auto) 77.1 % (45.0-75.0) H Lymphocytes (%) (Auto) 8.3 % (20.0-45.0) L Monocytes (%) (Auto) 7.9 % (1.0-10.0) Eosinophils (%) (Auto) 6.2 % (0.0-3.0) H Basophils (%) (Auto) 0.5 % (0.0-2.0) Prothrombin Time Pending Prothromb Time International Ratio Pending Activated Partial Thromboplast Time Pending Urine Color Yellow Urine Appearance Slightly cloudy Urine pH 5 (4.5-8.0) Urine Specific [place] 1.020 (1.005-1.035) Urine Protein 3+ (NEGATIVE) H Urine Glucose (UA) Negative (NEGATIVE) Urine Ketones 1+ (NEGATIVE) H Urine Occult Blood 5+ (NEGATIVE) H Urine Nitrite Positive (NEGATIVE) H Urine Bilirubin Negative (NEGATIVE) Urine Urobilinogen 1 MG/DL (0.0-1.0) H Urine Leukocyte Esterase 3+ (NEGATIVE) H Urine RBC 40-60 /HPF (0 - 0) H Urine WBC 20-30 /HPF (0 - 0) H Urine Squamous Epithelial Cells Occasional /LPF Urine Bacteria Many /HPF (NONE) H Sodium Level 130 mEQ/L (135-145) L Potassium Level 3.6 mEQ/L (3.4-4.9) Chloride Level 91 mEQ/L (98-107) L Carbon Dioxide Level 27 mEQ/L (20-30) Anion Gap 12 (5-15) Blood Urea Nitrogen 16 mg/dL (7-23) Creatinine 0.3 mg/dL (0.7-1.2) L Estimat Glomerular Filtration Rate > 60 mL/min (>60) Glucose Level 93 mg/dL (74-106) Calcium Level 8.3 mg/dL (8.6-10.2) L Total Bilirubin 1.3 mg/dL (0.0-1.2) H Direct Bilirubin 0.4 mg/dL (0.1-0.3) H Aspartate Amino Transf (AST/SGOT) 31 U/L (5-40) Alanine Aminotransferase (ALT/SGPT) 14 U/L (3-41) Alkaline Phosphatase 287 U/L (40-129) H Total Protein 7.5 g/dL (6.6-8.7) Albumin 1.9 g/dL (3.5-5.2) L Globulin 5.6 g/dL Albumin/Globulin Ratio 0.3 (1.0-2.7) L Lipase 21 U/L (< 60) Height (Feet): 5 Height (Inches): 5.00 Weight (Pounds): 130 Medications Current Medications Medications (Trade) Dose Ordered Sig/Hair Route PRN Reason Start Time Stop Time Status Last Admin Dose Admin Acetaminophen (Tylenol) 650 mg Q4H PRN ORAL T>100.5 08/07/16 10:15 09/06/16 10:14 Al Hydroxide/Mg Hydroxide (Mylanta II) 30 ml Q6H PRN ORAL dyspepsia 08/07/16 10:15 09/06/16 10:14 Cefepime HCl/ Dextrose (Maxipime/D5W) 55 ml @ 110 mls/hr EVERY 8 HOURS IV 08/07/16 14:00 08/14/16 13:59 Dextrose (Dextrose 50%) STAT PRN IV Hypoglycemia 08/07/16 10:15 09/06/16 10:14 Lactulose 30 gm 30 gm EVERY 6 HOURS ORAL 08/07/16 12:00 09/06/16 11:59 Lorazepam (Ativan 2mg/ml 1ml) 0.5 mg Q4H PRN IV For Anxiety 08/07/16 10:15 08/14/16 10:14 Morphine Sulfate (Morphine Sulfate) 2 mg Q4H PRN IVP Severe Pain (Pain Scale 7-10) 08/07/16 10:15 08/14/16 10:14 Ondansetron HCl (Zofran) 4 mg Q6H PRN IVP Nausea & Vomiting 08/07/16 10:15 09/06/16 10:14 Polyethylene Glycol (Miralax) 17 gm HSPRN PRN ORAL Constipation 08/07/16 21:00 09/06/16 20:59 Zolpidem Tartrate (Ambien) 5 mg HSPRN PRN ORAL Insomnia 08/07/16 21:00 09/06/16 20:59 Assessment/Plan Problem List: (1) Chronic respiratory failure ICD Codes: J96.10 - Chronic respiratory failure, unspecified whether with hypoxia or hypercapnia SNOMED: 01968291 (2) large ascites (3) Liver cirrhosis ICD Codes: K74.60 - Unspecified cirrhosis of liver SNOMED: 37765712 (4) hep c Assessment/Plan correct coagulopathy paracentesis gtube feeding titrate vent ZARRABI,MIRALI Aug 07, 2016 14:16
[2016-08-07] MEDS: Cefepime HCl 1 GM in D5W 55 ML IV SCH ×2 (15:51→21:30)
[2016-08-07] MEDS: Lactulose 20gm/30ml UDC ORAL SCH (15:51)
[2016-08-07 16:00] VITALS: BP 109/71
[2016-08-07 20:00] VITALS: BP 115/73
[2016-08-07] MEDS ORDERED: Miralax 17gm pkt ORAL PRN (21:00)
[2016-08-08] VITALS: BP 112/73
[2016-08-08] MEDS: Lactulose 20gm/30ml UDC ORAL SCH ×7 (01:05→23:58)
[2016-08-08 04:00] VITALS: BP 118/69
[2016-08-08 06:00] LABS: MEAN CORPUSCULAR HEMOGLOBIN 31.5 PG (27.0-31.0); MEAN CORPUSCULAR HGB CONC 32.7 G/DL (32.0-36.0); MEAN CORPUSCULAR VOLUME 96 FL (80-99); MEAN PLATELET VOLUME 5.8 FL (6.5-10.1); PLATELET COUNT 113 K/UL (150-450); RED BLOOD COUNT 2.44 M/UL (4.70-6.10); RED CELL DISTRIBUTION WIDTH 18.9 % (11.6-14.8); WHITE BLOOD COUNT 7.9 K/UL (4.8-10.8)
[2016-08-08] MEDS: Cefepime HCl 1 GM in D5W 55 ML IV SCH ×3 (06:01→21:45)
[2016-08-08 06:05] LABS: ALANINE AMINOTRANSFERASE 13 U/L (3-41); ALBUMIN/GLOBULIN RATIO 0.3 (1.0-2.7); ANION GAP 15 (5-15); ASPARTATE AMINO TRANSFERASE 28 U/L (5-40); CALCIUM 8.2 mg/dL (8.6-10.2); CARBON DIOXIDE 25 mEQ/L (20-30); CHLORIDE 90 mEQ/L (98-107); CHOLESTEROL 66 mg/dL (< 200); CHOLESTEROL/HDL RATIO 3.7 (3.3-4.4); CREATININE 0.3 mg/dL (0.7-1.2); GLOMERULAR FILTRATION RATE > 60 mL/min (>60); HEMOLYSIS 1; LDL CHOLESTEROL (CALC.) 36 mg/dL (60-99); POTASSIUM 3.9 mEQ/L (3.4-4.9); SODIUM 130 mEQ/L (135-145); TOTAL PROTEIN 6.9 g/dL (6.6-8.7)
[2016-08-08 06:18] LABS: AMMONIA 54 umol/L (16-60)
[2016-08-08 06:44] LABS: BILIRUBIN,DIRECT 0.5 mg/dL (0.1-0.3)
[2016-08-08 07:48] VITALS: BP 111/61
[2016-08-08 11:29] VITALS: BP 101/60
[2016-08-08] MEDS: Rifaximin 550mg tab ORAL SCH ×2 (13:37→21:00)
[2016-08-08] MEDS ORDERED: Tubing IV Secondary IV ONE (15:58)
[2016-08-08] MEDS ORDERED: NS 275ml ONE (15:58)
[2016-08-08] MEDS ORDERED: Tubing Blood Filter IV ONE (15:58)
[2016-08-08 16:19] VITALS: BP 115/67
--- NOTE | 2016-08-08 17:45 | Consultation ---
DATE OF CONSULTATION: 08/08/2016 CONSULTING PHYSICIAN: Anthony Arndt M.D. CHIEF COMPLAINT: Anemia, cirrhosis, ascites, and esophageal varices. HISTORY OF PRESENT ILLNESS: The patient is known to me from admission. I am unable to get history from him. He is intubated. The patient has a history of cirrhosis requiring banding in the past, hepatitis C, ascites, dysphagia with G-tube, and chronic respiratory failure. He is admitted to the hospital mainly for increased abdominal girth. PAST MEDICAL HISTORY: 1. Cirrhosis. 2. Hepatitis C. 3. Ascites. 4. Esophageal varices. 5. Anemia. 6. Dysphagia requiring G-tube. 7. Respiratory failure. 8. Encephalopathy. ALLERGIES: No known allergy. MEDICATIONS: Please see medication reconciliation list. SOCIAL HISTORY: The patient resides in a intermediate. No history of tobacco, alcohol, or drug abuse. FAMILY HISTORY: Noncontributory. REVIEW OF SYSTEMS: Unable to obtain. PAST SURGICAL HISTORY: Tracheostomy. PHYSICAL EXAMINATION: VITAL SIGNS: Temperature is 98.1 degrees, pulse is 101, respirations 18, and blood pressure is 111/61. HEENT: Normocephalic and atraumatic. Pale conjunctivae. NECK: Supple. No lymphadenopathy. CARDIOVASCULAR: Tachy. Regular rate. Plus S1 and S2. No obvious murmur. LUNGS: Decreased breath sounds bilaterally based on the supine exam. ABDOMEN: Soft. There is a G-tube in place. There is increased abdominal girth with ascites. Bowel sounds are hypoactive. No rebound. No guarding. EXTREMITIES: No cyanosis. No clubbing. No edema. LABORATORY DATA: Sodium 138, potassium 3.9, BUN is 15, and creatinine 0.3. White count is 7.9, hemoglobin 7.7, hematocrit 23, and platelet count is 113,000. ASSESSMENT AND PLAN: 1. Anemia. 2. Cirrhosis. 3. Hepatitis C. 4. Dysphagia with gastrostomy tube. 5. Encephalopathy. 6. Thrombocytopenia. 7. Esophageal varices requiring banding. 8. Ascites. 9. Respiratory failure. PLAN: The patient to get a unit of blood transfusion if hemoglobin drops below 7. Continue on lactulose and Xifaxan. Repeat ammonia level for tomorrow. Start the patient on PPI daily. The patient is pending paracentesis. Anthony Arndt M.D. DR: MICHELLE JOB#: [id number] CC:
[2016-08-08 20:00] VITALS: BP 110/67
--- NOTE | 2016-08-08 20:25 | Pulmonology Progress Note ---
Assessment/Plan Problems: (1) Chronic respiratory failure (2) large ascites (3) Liver cirrhosis (4) hep c Assessment/Plan awaiting paracentesis check coagulation factors tolerating feeding check labs in am Subjective ROS Limited/Unobtainable: No Allergies: Coded Allergies: No Known Allergies (Unverified , 06/09/16) Objective Last 24 Hour Vital Signs Date Time Temp Pulse Resp B/P Pulse Ox O2 Delivery O2 Flow Rate FiO2 08/08/16 20:00 97.7 96 22 110/67 100 Mechanical Ventilator 40 08/08/16 19:26 94 21 40 08/08/16 16:30 92 20 40 08/08/16 16:19 97.9 102 29 115/67 99 Mechanical Ventilator 40 08/08/16 16:00 40 08/08/16 15:58 100 08/08/16 15:14 91 21 40 08/08/16 12:49 89 18 40 08/08/16 12:00 40 08/08/16 11:54 102 08/08/16 11:29 97.3 102 21 101/60 100 Mechanical Ventilator 40 08/08/16 11:02 95 20 40 08/08/16 09:12 99 18 40 08/08/16 08:00 40 08/08/16 07:54 101 08/08/16 07:48 98.1 102 15 111/61 100 Mechanical Ventilator 40 08/08/16 06:50 98 18 40 08/08/16 05:09 104 16 40 08/08/16 04:00 98.0 98 17 118/69 100 Mechanical Ventilator 40 08/08/16 04:00 40 08/08/16 03:37 102 08/08/16 03:24 102 22 40 08/08/16 01:29 16 24 40 08/08/16 00:00 40 08/08/16 00:00 97.8 94 16 112/73 100 Mechanical Ventilator 40 08/07/16 23:37 87 08/07/16 23:21 91 23 40 08/07/16 21:20 91 14 40 Intake and Output 08/07/16 08/08/16 19:00 07:00 Intake Total 260 ml 630 ml Output Total 427 ml 300 ml Balance -167 ml 330 ml Intake Free Water 100 ml 100 ml IV Total 55 ml 110 ml Tube Feeding 105 ml 420 ml Other 0 ml Output Urine Total 427 ml 300 ml # Bowel Movements 100 1 General Appearance: cachetic HEENT: normocephalic, atraumatic Cardiovascular: normal peripheral pulses, normal rate Abdomen: normal bowel sounds, hypoactive bowel sounds, hepatomegaly Microbiology Date/Time Source Procedure Growth Status 08/07/16 07:58 Urine,Clean Catch Urine Culture - Preliminary Gram Negative Navid Resulted Laboratory Tests 08/08/16 04:52: White Blood Count 7.9, Red Blood Count 2.44L, Hemoglobin 7.7L, Hematocrit 23.4L , Mean Corpuscular Volume 96, Mean Corpuscular Hemoglobin 31.5H, Mean Corpuscular Hemoglobin Concent 32.7, Red Cell Distribution Width 18.9H, Platelet Count 113L, Mean Platelet Volume 5.8L, Neutrophils (%) (Auto) , Lymphocytes (%) (Auto) , Monocytes (%) (Auto) , Eosinophils (%) (Auto) , Basophils (%) (Auto) , Sodium Level 130L, Potassium Level 3.9, Chloride Level 90L, Carbon Dioxide Level 25, Anion Gap 15, Blood Urea Nitrogen 15, Creatinine 0.3L, Estimat Glomerular Filtration Rate > 60, Glucose Level 72L, Calcium Level 8.2L, Total Bilirubin 1.2, Direct Bilirubin 0.5H, Aspartate Amino Transf (AST/ SGOT) 28, Alanine Aminotransferase (ALT/SGPT) 13, Alkaline Phosphatase 264H, Ammonia 54, Total Protein 6.9, Albumin 1.8L, Globulin 5.1, Albumin/Globulin Ratio 0.3L, Triglycerides Level 58, Cholesterol Level 66, LDL Cholesterol 36L, HDL Cholesterol 18, Cholesterol/HDL Ratio 3.7, Thyroid Stimulating Hormone (TSH ) 4.580H Current Medications Medications (Trade) Dose Ordered Sig/Hair Route PRN Reason Start Time Stop Time Status Last Admin Dose Admin Acetaminophen (Tylenol) 650 mg Q4H PRN ORAL T>100.5 08/07/16 10:15 09/06/16 10:14 08/08/16 16:43 Al Hydroxide/Mg Hydroxide (Mylanta II) 30 ml Q6H PRN ORAL dyspepsia 08/07/16 10:15 09/06/16 10:14 Cefepime HCl/ Dextrose (Maxipime/D5W) 55 ml @ 110 mls/hr EVERY 8 HOURS IV 08/07/16 14:00 08/14/16 13:59 08/08/16 16:41 Dextrose STAT PRN IV Hypoglycemia 08/07/16 10:15 09/06/16 10:14 Furosemide (Lasix) 20 mg DAILY IV 08/09/16 09:00 09/08/16 08:59 Lactulose (Cephulac) 30 gm EVERY 6 HOURS ORAL 08/07/16 18:00 09/06/16 17:59 08/08/16 17:59 Lorazepam (Ativan 2mg/ml 1ml) 0.5 mg Q4H PRN IV For Anxiety 08/07/16 10:15 08/14/16 10:14 Morphine Sulfate (Morphine Sulfate) 2 mg Q4H PRN IVP Severe Pain (Pain Scale 7-10) 08/07/16 10:15 08/14/16 10:14 Ondansetron HCl (Zofran) 4 mg Q6H PRN IVP Nausea & Vomiting 08/07/16 10:15 09/06/16 10:14 Pantoprazole (Protonix) 40 mg DAILY ORAL 08/09/16 09:00 09/08/16 08:59 Polyethylene Glycol (Miralax) 17 gm HSPRN PRN ORAL Constipation 08/07/16 21:00 09/06/16 20:59 Rifaximin (Xifaxan) 550 mg EVERY 12 HOURS ORAL 08/08/16 13:00 09/07/16 12:59 08/08/16 13:37 Spironolactone (Aldactone) 100 mg DAILY ORAL 08/09/16 09:00 09/08/16 08:59 Zolpidem Tartrate (Ambien) 5 mg HSPRN PRN ORAL Insomnia 08/07/16 21:00 09/06/16 20:59 DANTE HSIEH Aug 08, 2016 20:25
[2016-08-08] MEDS: Morphine Sulfate 2mg/ml Inj IVP PRN (21:48)
[2016-08-08] MEDS: Zolpidem 5mg tab ORAL PRN (23:59)
[2016-08-09 00:26] VITALS: BP 111/67
[2016-08-09] MEDS: Morphine Sulfate 2mg/ml Inj IVP PRN ×2 (02:43→12:56)
[2016-08-09 03:44] VITALS: BP 112/71
[2016-08-09] MEDS: Cefepime HCl 1 GM in D5W 55 ML IV SCH ×3 (05:19→21:05)
[2016-08-09] MEDS: Lactulose 20gm/30ml UDC ORAL SCH ×4 (05:20→23:38)
[2016-08-09 06:41] LABS: INR 1.4 (0.9-1.1); PROTHROMBIN TIME 14.9 SEC (9.30-11.50)
[2016-08-09 06:43] LABS: BASOPHILS % (AUTO) 0.6 % (0.0-2.0); EOSINOPHILS % (AUTO) 4.5 % (0.0-3.0); LYMPHOCYTES % (AUTO) 8.9 % (20.0-45.0); MEAN CORPUSCULAR HEMOGLOBIN 31.1 PG (27.0-31.0); MEAN CORPUSCULAR HGB CONC 32.7 G/DL (32.0-36.0); MEAN CORPUSCULAR VOLUME 95 FL (80-99); MEAN PLATELET VOLUME 6.3 FL (6.5-10.1); MONOCYTES % (AUTO) 7.1 % (1.0-10.0); NEUTROPHILS % (AUTO) 78.9 % (45.0-75.0); PLATELET COUNT 110 K/UL (150-450); RED BLOOD COUNT 2.89 M/UL (4.70-6.10); RED CELL DISTRIBUTION WIDTH 18.7 % (11.6-14.8); WHITE BLOOD COUNT 6.9 K/UL (4.8-10.8)
[2016-08-09 07:28] LABS: ALANINE AMINOTRANSFERASE 12 U/L (3-41); ALBUMIN/GLOBULIN RATIO 0.3 (1.0-2.7); ANION GAP 18 (5-15); ASPARTATE AMINO TRANSFERASE 26 U/L (5-40); CALCIUM 8.2 mg/dL (8.6-10.2); CARBON DIOXIDE 19 mEQ/L (20-30); CHLORIDE 94 mEQ/L (98-107); CREATININE 0.3 mg/dL (0.7-1.2); GLOMERULAR FILTRATION RATE > 60 mL/min (>60); HEMOLYSIS 10; MAGNESIUM 1.8 mg/dL (1.7-2.5); PHOSPHORUS 4.1 mg/dL (2.5-4.8); SODIUM 131 mEQ/L (135-145); TOTAL PROTEIN 6.9 g/dL (6.6-8.7)
[2016-08-09 07:53] LABS: BILIRUBIN,DIRECT 0.4 mg/dL (0.1-0.3)
[2016-08-09 08:00] VITALS: BP 124/70
--- NOTE | 2016-08-09 08:01 | General Progress Note ---
Assessment/Plan Assessment/Plan ASSESSMENT AND PLAN: 1. Anemia. 2. Cirrhosis. 3. Hepatitis C. 4. Dysphagia with gastrostomy tube. 5. Encephalopathy. 6. Thrombocytopenia. 7. Esophageal varices requiring banding. 8. Ascites. 9. Respiratory failure. GTF fu labs prn blood transfusion hold GI procedures for now Subjective ROS Limited/Unobtainable: No Allergies: Coded Allergies: No Known Allergies (Unverified , 06/09/16) Objective Last 24 Hour Vital Signs Date Time Temp Pulse Resp B/P Pulse Ox O2 Delivery O2 Flow Rate FiO2 08/09/16 06:54 95 15 40 08/09/16 05:14 93 19 40 08/09/16 04:00 40 08/09/16 04:00 95 08/09/16 03:44 97.7 97 22 112/71 100 Mechanical Ventilator 40 08/09/16 03:14 94 20 40 08/09/16 03:13 97.7 08/09/16 00:45 90 21 40 08/09/16 00:26 97.7 90 20 111/67 100 Mechanical Ventilator 40 08/09/16 00:00 40 08/08/16 23:41 86 08/08/16 23:18 93 24 40 08/08/16 20:54 92 21 40 08/08/16 20:00 40 08/08/16 20:00 97.7 96 22 110/67 100 Mechanical Ventilator 40 08/08/16 20:00 98 08/08/16 19:26 94 21 40 08/08/16 16:30 92 20 40 08/08/16 16:19 97.9 102 29 115/67 99 Mechanical Ventilator 40 08/08/16 16:00 40 08/08/16 15:58 100 08/08/16 15:14 91 21 40 08/08/16 12:49 89 18 40 08/08/16 12:00 40 08/08/16 11:54 102 08/08/16 11:29 97.3 102 21 101/60 100 Mechanical Ventilator 40 08/08/16 11:02 95 20 40 08/08/16 09:12 99 18 40 08/08/16 08:00 40 Intake and Output 08/08/16 08/09/16 19:00 07:00 Intake Total 685 ml 415 ml Output Total 250 ml 400 ml Balance 435 ml 15 ml Intake Free Water 100 ml 165 ml IV Total 55 ml 55 ml Tube Feeding 280 ml 195 ml Blood Product 250 ml Output Urine Total 250 ml 325 ml Stool Total 75 ml # Bowel Movements 2 Laboratory Tests 08/09/16 06:05: White Blood Count 6.9, Red Blood Count 2.89L, Hemoglobin 9.0L, Hematocrit 27.4L , Mean Corpuscular Volume 95, Mean Corpuscular Hemoglobin 31.1H, Mean Corpuscular Hemoglobin Concent 32.7, Red Cell Distribution Width 18.7H, Platelet Count 110L, Mean Platelet Volume 6.3L, Neutrophils (%) (Auto) 78.9H, Lymphocytes (%) (Auto) 8.9L, Monocytes (%) (Auto) 7.1, Eosinophils (%) (Auto) 4.5H, Basophils (%) (Auto) 0.6, Prothrombin Time 14.9H, Prothromb Time International Ratio 1.4H, Activated Partial Thromboplast Time 38H, Sodium Level 131L, Potassium Level 4.0, Chloride Level 94L, Carbon Dioxide Level 19L, Anion Gap 18H, Blood Urea Nitrogen 13, Creatinine 0.3L, Estimat Glomerular Filtration Rate > 60, Glucose Level 102, Calcium Level 8.2L, Phosphorus Level 4.1, Magnesium Level 1.8, Total Bilirubin 1.3H, Direct Bilirubin 0.4H, Aspartate Amino Transf (AST/SGOT) 26, Alanine Aminotransferase (ALT/SGPT) 12, Alkaline Phosphatase 254H, Ammonia 67H, Total Protein 6.9, Albumin 1.6L, Globulin 5.3, Albumin/Globulin Ratio 0.3L Height (Feet): 5 Height (Inches): 5.00 Weight (Pounds): 188 General Appearance: confused EENT: normal ENT inspection Neck: supple Cardiovascular: normal rate Respiratory/Chest: decreased breath sounds Abdomen: normal bowel sounds, non tender, soft Extremities: non-tender BRIA VELASQUEZ Aug 09, 2016 08:01
[2016-08-09] MEDS: Spironolactone 50mg tab ORAL SCH (08:15)
[2016-08-09] MEDS: Rifaximin 550mg tab ORAL SCH ×2 (08:15→21:04)
--- NOTE | 2016-08-09 11:03 | Diagnostic Imaging Report ---
Indication: Dyspnea Comparison: 07/20/16 A single view chest radiograph was obtained. Findings: Interstitial edema suspected. Lordotic projection angle again noted. No definite change appreciated. Probable cardiomegaly. Tracheostomy again noted. Impression: Suspected interstitial edema.
--- NOTE | 2016-08-09 11:14 | Infectious Diseases Prog Note ---
Assessment/Plan Assessment/Plan ID consult dictated # [id number] Subjective Allergies: Coded Allergies: No Known Allergies (Unverified , 06/09/16) Objective Vital Signs Last 24 Hour Vital Signs Date Time Temp Pulse Resp B/P Pulse Ox O2 Delivery O2 Flow Rate FiO2 08/09/16 10:46 95 23 40 08/09/16 08:43 98 18 40 08/09/16 08:00 97.7 94 15 124/70 99 Mechanical Ventilator 40 08/09/16 08:00 40 08/09/16 07:54 94 08/09/16 06:54 95 15 40 08/09/16 05:14 93 19 40 08/09/16 04:00 40 08/09/16 04:00 95 08/09/16 03:44 97.7 97 22 112/71 100 Mechanical Ventilator 40 08/09/16 03:14 94 20 40 08/09/16 03:13 97.7 08/09/16 00:45 90 21 40 08/09/16 00:26 97.7 90 20 111/67 100 Mechanical Ventilator 40 08/09/16 00:00 40 08/08/16 23:41 86 08/08/16 23:18 93 24 40 08/08/16 20:54 92 21 40 08/08/16 20:00 40 08/08/16 20:00 97.7 96 22 110/67 100 Mechanical Ventilator 40 08/08/16 20:00 98 08/08/16 19:26 94 21 40 08/08/16 16:30 92 20 40 08/08/16 16:19 97.9 102 29 115/67 99 Mechanical Ventilator 40 08/08/16 16:00 40 08/08/16 15:58 100 08/08/16 15:14 91 21 40 08/08/16 12:49 89 18 40 08/08/16 12:00 40 08/08/16 11:54 102 08/08/16 11:29 97.3 102 21 101/60 100 Mechanical Ventilator 40 Height (Feet): 5 Height (Inches): 5.00 Weight (Pounds): 188 Microbiology Date/Time Source Procedure Growth Status 08/07/16 15:00 Nasal Nares MRSA Culture - Final Staphylococcus Aureus - Mrsa Complete 08/07/16 07:58 Urine,Clean Catch Urine Culture - Preliminary Gram Negative Navid Resulted 08/07/16 15:00 Rectum VRE Culture - Final Enterococcus Faecalis - Vre Enterococcus Faecium - Vre Complete Laboratory Tests Test 08/09/16 04:52 08/09/16 06:05 08/09/16 09:33 Alpha Fetoprotein Pending White Blood Count 6.9 K/UL (4.8-10.8) Red Blood Count 2.89 M/UL (4.70-6.10) L Hemoglobin 9.0 G/DL (14.2-18.0) L Hematocrit 27.4 % (42.0-52.0) L Mean Corpuscular Volume 95 FL (80-99) Mean Corpuscular Hemoglobin 31.1 PG (27.0-31.0) H Mean Corpuscular Hemoglobin Concent 32.7 G/DL (32.0-36.0) Red Cell Distribution Width 18.7 % (11.6-14.8) H Platelet Count 110 K/UL (150-450) L Mean Platelet Volume 6.3 FL (6.5-10.1) L Neutrophils (%) (Auto) 78.9 % (45.0-75.0) H Lymphocytes (%) (Auto) 8.9 % (20.0-45.0) L Monocytes (%) (Auto) 7.1 % (1.0-10.0) Eosinophils (%) (Auto) 4.5 % (0.0-3.0) H Basophils (%) (Auto) 0.6 % (0.0-2.0) Prothrombin Time 14.9 SEC (9.30-11.50) H Prothromb Time International Ratio 1.4 (0.9-1.1) H Activated Partial Thromboplast Time 38 SEC (23-33) H Sodium Level 131 mEQ/L (135-145) L Potassium Level 4.0 mEQ/L (3.4-4.9) Chloride Level 94 mEQ/L (98-107) L Carbon Dioxide Level 19 mEQ/L (20-30) L Anion Gap 18 (5-15) H Blood Urea Nitrogen 13 mg/dL (7-23) Creatinine 0.3 mg/dL (0.7-1.2) L Estimat Glomerular Filtration Rate > 60 mL/min (>60) Glucose Level 102 mg/dL (74-106) Calcium Level 8.2 mg/dL (8.6-10.2) L Phosphorus Level 4.1 mg/dL (2.5-4.8) Magnesium Level 1.8 mg/dL (1.7-2.5) Total Bilirubin 1.3 mg/dL (0.0-1.2) H Direct Bilirubin 0.4 mg/dL (0.1-0.3) H Aspartate Amino Transf (AST/SGOT) 26 U/L (5-40) Alanine Aminotransferase (ALT/SGPT) 12 U/L (3-41) Alkaline Phosphatase 254 U/L (40-129) H Ammonia 67 umol/L (16-60) H Total Protein 6.9 g/dL (6.6-8.7) Albumin 1.6 g/dL (3.5-5.2) L Globulin 5.3 g/dL Albumin/Globulin Ratio 0.3 (1.0-2.7) L Stool Occult Blood Pending Current Medications Medications (Trade) Dose Ordered Sig/Hair Route PRN Reason Start Time Stop Time Status Last Admin Dose Admin Acetaminophen (Tylenol) 650 mg Q4H PRN ORAL T>100.5 08/07/16 10:15 09/06/16 10:14 08/08/16 16:43 Al Hydroxide/Mg Hydroxide (Mylanta II) 30 ml Q6H PRN ORAL dyspepsia 08/07/16 10:15 09/06/16 10:14 Cefepime HCl/ Dextrose (Maxipime/D5W) 55 ml @ 110 mls/hr EVERY 8 HOURS IV 08/07/16 14:00 08/14/16 13:59 08/09/16 05:19 Dextrose STAT PRN IV Hypoglycemia 08/07/16 10:15 09/06/16 10:14 Furosemide (Lasix) 20 mg DAILY IV 08/09/16 09:00 09/08/16 08:59 08/09/16 08:15 Lactulose (Cephulac) 30 gm EVERY 6 HOURS ORAL 08/07/16 18:00 09/06/16 17:59 08/09/16 05:20 Lansoprazole (Prevacid) 30 mg DAILY GT 08/09/16 09:00 09/08/16 08:59 08/09/16 09:08 Lorazepam (Ativan 2mg/ml 1ml) 0.5 mg Q4H PRN IV For Anxiety 08/07/16 10:15 08/14/16 10:14 Morphine Sulfate (Morphine Sulfate) 2 mg Q4H PRN IVP Severe Pain (Pain Scale 7-10) 08/07/16 10:15 08/14/16 10:14 08/09/16 02:43 Ondansetron HCl (Zofran) 4 mg Q6H PRN IVP Nausea & Vomiting 08/07/16 10:15 09/06/16 10:14 Polyethylene Glycol (Miralax) 17 gm HSPRN PRN ORAL Constipation 08/07/16 21:00 09/06/16 20:59 Rifaximin (Xifaxan) 550 mg EVERY 12 HOURS ORAL 08/08/16 13:00 09/07/16 12:59 08/09/16 08:15 Spironolactone (Aldactone) 100 mg DAILY ORAL 08/09/16 09:00 09/08/16 08:59 08/09/16 08:15 Zolpidem Tartrate (Ambien) 5 mg HSPRN PRN ORAL Insomnia 08/07/16 21:00 09/06/16 20:59 08/08/16 23:59 REHANA HINES Aug 09, 2016 11:14
[2016-08-09 12:00] VITALS: BP 109/59
[2016-08-09 16:00] VITALS: BP 114/74
--- NOTE | 2016-08-09 16:52 | Pulmonology Progress Note ---
Assessment/Plan Problems: (1) Chronic respiratory failure (2) large ascites (3) Liver cirrhosis (4) hep c Assessment/Plan awaiting paracentesis check coagulation factors tolerating feeding check labs in am continue abx check cultures Subjective ROS Limited/Unobtainable: No Allergies: Coded Allergies: No Known Allergies (Unverified , 06/09/16) Objective Last 24 Hour Vital Signs Date Time Temp Pulse Resp B/P Pulse Ox O2 Delivery O2 Flow Rate FiO2 08/09/16 16:00 40 08/09/16 14:36 98 25 40 08/09/16 12:45 98 20 40 08/09/16 12:00 98.0 97 19 109/59 100 Mechanical Ventilator 40 08/09/16 12:00 40 08/09/16 11:46 97 08/09/16 10:46 95 23 40 08/09/16 08:43 98 18 40 08/09/16 08:00 97.7 94 15 124/70 99 Mechanical Ventilator 40 08/09/16 08:00 40 08/09/16 07:54 94 08/09/16 06:54 95 15 40 08/09/16 05:14 93 19 40 08/09/16 04:00 40 08/09/16 04:00 95 08/09/16 03:44 97.7 97 22 112/71 100 Mechanical Ventilator 40 08/09/16 03:14 94 20 40 08/09/16 03:13 97.7 08/09/16 00:45 90 21 40 08/09/16 00:26 97.7 90 20 111/67 100 Mechanical Ventilator 40 08/09/16 00:00 40 08/08/16 23:41 86 08/08/16 23:18 93 24 40 08/08/16 20:54 92 21 40 08/08/16 20:00 40 08/08/16 20:00 97.7 96 22 110/67 100 Mechanical Ventilator 40 08/08/16 20:00 98 08/08/16 19:26 94 21 40 Intake and Output 08/08/16 08/09/16 19:00 07:00 Intake Total 685 ml 495 ml Output Total 250 ml 400 ml Balance 435 ml 95 ml Intake Free Water 100 ml 215 ml IV Total 55 ml 55 ml Tube Feeding 280 ml 225 ml Blood Product 250 ml Output Urine Total 250 ml 325 ml Stool Total 75 ml # Bowel Movements 2 Objective General Appearance: cachetic HEENT: normocephalic, atraumatic Cardiovascular: normal peripheral pulses, normal rate Abdomen: normal bowel sounds, hypoactive bowel sounds, hepatomegaly Ext + edema Microbiology Date/Time Source Procedure Growth Status 08/07/16 15:00 Nasal Nares MRSA Culture - Final Staphylococcus Aureus - Mrsa Complete 08/07/16 07:58 Urine,Clean Catch Urine Culture - Preliminary Gram Negative Navid Resulted 08/07/16 15:00 Rectum VRE Culture - Final Enterococcus Faecalis - Vre Enterococcus Faecium - Vre Complete Laboratory Tests 08/09/16 04:52: Alpha Fetoprotein [Pending] 08/09/16 06:05: White Blood Count 6.9, Red Blood Count 2.89L, Hemoglobin 9.0L, Hematocrit 27.4L , Mean Corpuscular Volume 95, Mean Corpuscular Hemoglobin 31.1H, Mean Corpuscular Hemoglobin Concent 32.7, Red Cell Distribution Width 18.7H, Platelet Count 110L, Mean Platelet Volume 6.3L, Neutrophils (%) (Auto) 78.9H, Lymphocytes (%) (Auto) 8.9L, Monocytes (%) (Auto) 7.1, Eosinophils (%) (Auto) 4.5H, Basophils (%) (Auto) 0.6, Prothrombin Time 14.9H, Prothromb Time International Ratio 1.4H, Activated Partial Thromboplast Time 38H, Sodium Level 131L, Potassium Level 4.0, Chloride Level 94L, Carbon Dioxide Level 19L, Anion Gap 18H, Blood Urea Nitrogen 13, Creatinine 0.3L, Estimat Glomerular Filtration Rate > 60, Glucose Level 102, Calcium Level 8.2L, Phosphorus Level 4.1, Magnesium Level 1.8, Total Bilirubin 1.3H, Direct Bilirubin 0.4H, Aspartate Amino Transf (AST/SGOT) 26, Alanine Aminotransferase (ALT/SGPT) 12, Alkaline Phosphatase 254H, Ammonia 67H, Total Protein 6.9, Albumin 1.6L, Globulin 5.3, Albumin/Globulin Ratio 0.3L 08/09/16 09:33: Stool Occult Blood [Pending] Current Medications Medications (Trade) Dose Ordered Sig/Hair Route PRN Reason Start Time Stop Time Status Last Admin Dose Admin Acetaminophen (Tylenol) 650 mg Q4H PRN ORAL T>100.5 08/07/16 10:15 09/06/16 10:14 08/08/16 16:43 Cefepime HCl/ Dextrose (Maxipime/D5W) 55 ml @ 110 mls/hr EVERY 8 HOURS IV 08/07/16 14:00 08/14/16 13:59 08/09/16 14:03 Dextrose STAT PRN IV Hypoglycemia 08/07/16 10:15 09/06/16 10:14 Furosemide (Lasix) 20 mg DAILY IV 08/09/16 09:00 09/08/16 08:59 08/09/16 08:15 Lactulose (Cephulac) 30 gm EVERY 6 HOURS ORAL 08/07/16 18:00 09/06/16 17:59 08/09/16 11:49 Lansoprazole (Prevacid) 30 mg DAILY GT 08/09/16 09:00 09/08/16 08:59 08/09/16 09:08 Lorazepam (Ativan 2mg/ml 1ml) 0.5 mg Q4H PRN IV For Anxiety 08/07/16 10:15 08/14/16 10:14 Morphine Sulfate (Morphine Sulfate) 2 mg Q4H PRN IVP Severe Pain (Pain Scale 7-10) 08/07/16 10:15 08/14/16 10:14 08/09/16 12:56 Ondansetron HCl (Zofran) 4 mg Q6H PRN IVP Nausea & Vomiting 08/07/16 10:15 09/06/16 10:14 Rifaximin (Xifaxan) 550 mg EVERY 12 HOURS ORAL 08/08/16 13:00 09/07/16 12:59 08/09/16 08:15 Spironolactone (Aldactone) 100 mg DAILY ORAL 08/09/16 09:00 09/08/16 08:59 08/09/16 08:15 Zolpidem Tartrate (Ambien) 5 mg HSPRN PRN ORAL Insomnia 08/07/16 21:00 09/06/16 20:59 08/08/16 23:59 DANTE HSIEH Aug 09, 2016 16:52
[2016-08-09 20:00] VITALS: BP 133/75
--- NOTE | 2016-08-09 22:30 | Consultation ---
DATE OF CONSULTATION: 08/09/2016 INFECTIOUS DISEASES CONSULTATION This consult is for coverage of Dr. Urena. CONSULTING PHYSICIAN: Antonio Reyes M.D. PRIMARY ATTENDING PHYSICIAN: Uma Breen M.D. REASON FOR CONSULTATION: UTI. HISTORY OF PRESENT ILLNESS: The patient is a 56-year-old male who is a detention resident was admitted on 08/07/2016 because of increased ascites. The patient was supposed to have paracentesis. He had hematuria and he had pyuria. The patient was recently discharged from hospital on 07/28/2016. He was admitted in the previous admission because of GI bleeding. PAST MEDICAL HISTORY: Cirrhosis, esophageal varices, status post banding, hepatitis C, ventilatory-dependent respiratory failure, G-tube placement, ascites, history of traumatic subdural hemorrhage, seizure disorder, and anemia. MEDICATIONS: Lasix, Aldactone, rifaximin, polyethylene glycol, lactulose, Ambien, cefepime, morphine, Tylenol, Zofran, and Mylanta. ALLERGIES: No known drug allergies. SOCIAL HISTORY: halfway resident. No other history obtainable by the patient. PHYSICAL EXAMINATION: GENERAL APPEARANCE: Awake, alert, responsive, and communicative. VITAL SIGNS: Temperature 97.7 degrees, pulse 95, and blood pressure 124/70. HEAD AND NECK: Status post tracheostomy. HEART: Regular. LUNGS: Clear. The patient on mechanical ventilator. ABDOMEN: Distended with ascites and has G-tube placement. EXTREMITIES: No edema. He has muscle atrophy. LABORATORY DATA: WBC 6.9, hemoglobin 9, hematocrit 27.4, and platelets are 110,000. Sodium 131, potassium 4, chloride 94, and bicarbonate 19. Bilirubin 1.3. BUN 13 and creatinine 0.3. Alkaline phosphatase is 254. Ammonia is 67. Albumin is 1.6. VRE culture is positive. MRSA screen is positive. Urine culture growing gram-negative rods. Urinalysis showed RBC of 40-60, WBC of 20-30, and nitrite positive. IMPRESSION: 1. Pyuria, likely urinary tract infection. 2. The patient has cirrhosis with ascites, has chronic hepatitis C. 3. Ventilator-dependent respiratory failure. 4. Diarrhea. 5. Anemia. RECOMMENDATION: We will continue with cefepime. We will follow up urine culture. We will send stool for C. difficile. Withhold MiraLAX. At the end of my exam, I thank Dr. Breen for involving me in the care of this patient. Antonio Reyes M.D. DR: CONRAD JOB#: [id number] CC: JEROD
[2016-08-09] MEDS: DiphenhydrAMINE 50mg/ml Inj IVP PRN (23:38)
[2016-08-10] VITALS: BP 135/80
[2016-08-10] MEDS: Zolpidem 5mg tab ORAL PRN (00:20)
[2016-08-10] MEDS: Morphine Sulfate 2mg/ml Inj IVP PRN ×3 (02:11→17:33)
[2016-08-10 04:00] VITALS: BP 116/64
[2016-08-10 05:30] LABS: BASOPHILS % (AUTO) 0.9 % (0.0-2.0); EOSINOPHILS % (AUTO) 3.6 % (0.0-3.0); MEAN CORPUSCULAR HEMOGLOBIN 31.4 PG (27.0-31.0); MEAN CORPUSCULAR HGB CONC 33.1 G/DL (32.0-36.0); MEAN CORPUSCULAR VOLUME 95 FL (80-99); MEAN PLATELET VOLUME 6.8 FL (6.5-10.1); MONOCYTES % (AUTO) 6.6 % (1.0-10.0); NEUTROPHILS % (AUTO) 81.9 % (45.0-75.0); PLATELET COUNT 124 K/UL (150-450); RED BLOOD COUNT 2.81 M/UL (4.70-6.10); RED CELL DISTRIBUTION WIDTH 18.4 % (11.6-14.8); WHITE BLOOD COUNT 8.9 K/UL (4.8-10.8)
[2016-08-10 05:50] LABS: INR 1.4 (0.9-1.1); PROTHROMBIN TIME 14.3 SEC (9.30-11.50)
[2016-08-10 05:59] LABS: ALANINE AMINOTRANSFERASE 10 U/L (3-41); ALBUMIN/GLOBULIN RATIO 0.3 (1.0-2.7); ANION GAP 18 (5-15); ASPARTATE AMINO TRANSFERASE 23 U/L (5-40); CALCIUM 8.1 mg/dL (8.6-10.2); CARBON DIOXIDE 22 mEQ/L (20-30); CHLORIDE 95 mEQ/L (98-107); CREATININE 0.3 mg/dL (0.7-1.2); GLOMERULAR FILTRATION RATE > 60 mL/min (>60); HEMOLYSIS 6; MAGNESIUM 1.8 mg/dL (1.7-2.5); PHOSPHORUS 3.4 mg/dL (2.5-4.8); POTASSIUM 3.8 mEQ/L (3.4-4.9); SODIUM 135 mEQ/L (135-145); TOTAL PROTEIN 6.9 g/dL (6.6-8.7)
[2016-08-10] MEDS: Lactulose 20gm/30ml UDC ORAL SCH ×2 (06:42→11:22)
[2016-08-10] MEDS: Cefepime HCl 1 GM in D5W 55 ML IV SCH (06:43)
[2016-08-10 07:16] LABS: BILIRUBIN,DIRECT 0.3 mg/dL (0.1-0.3)
[2016-08-10 08:00] VITALS: BP 112/66
[2016-08-10] MEDS: DiphenhydrAMINE 50mg/ml Inj IVP PRN (08:30)
[2016-08-10] MEDS: Rifaximin 550mg tab ORAL SCH (08:30)
[2016-08-10] MEDS: Spironolactone 50mg tab ORAL SCH (08:30)
--- NOTE | 2016-08-10 10:46 | Infectious Diseases Prog Note ---
Assessment/Plan Assessment/Plan ASSESSMENT: 56 y/o male with: / // Recent HCAP / VAP - repeat SPcx: P mirabilis and KPC SP Rx - SCx PSA and Pr. Mirabilis // Hx of Polymicrobial ( MRSA, M.morganii ,PSA ) bacteremia 06/02 , repeat BCx :neg , SP Rx - TTE(-) SBE // Hx of Recurrent gross hematuria and recurrent UTI - UCx : ESBL EColi ( Colonizer ) // Stage IV sacral debuitus ulcer // HCV Ab+ // Negative HIV // Elev Alk Ph: - HIDA scan :neg 07/15 // Afebrile without leukocytosis // Elevated ESR, CRP // H. pylori based on last endoscopy. plan to treat when the patient gets discharged as per GI // GI bleed , SP EGD 07/22 : Esophagus ulceration on the band and severe portal hypertensive gastropathy. // Chronic liver disease / cirrhosis with elevated LFTs, US : GB wall thickening ( probably 2nd to ascites ) CT: Liver cirrhosis with stigmata of portal hypertension // Chronic VDRF SP trach, PEG // h/o CVA // [facility] resident // MDRO colonized // NKDA // Full Code PLAN: - DC IV Cefepime ( pt has no fever , leukocytosis , +ve UCx :colonizer ) 07/28 SP Merrem and Colistin INH d# 7 / 7 - monitor CBC, temperatures - monitor BMP - monitor CXR - vent support, trach care, aspiration precaution - wound care Subjective Constitutional: Denies: anorexia, chills, drenching sweats, fatigue, fever, no symptoms, other Allergies: Coded Allergies: No Known Allergies (Unverified , 06/09/16) Objective Vital Signs Last 24 Hour Vital Signs Date Time Temp Pulse Resp B/P Pulse Ox O2 Delivery O2 Flow Rate FiO2 08/10/16 09:21 100 18 40 08/10/16 09:00 98.4 08/10/16 08:00 40 08/10/16 08:00 106 08/10/16 08:00 98.4 104 22 112/66 98 Mechanical Ventilator 40 08/10/16 06:58 106 21 40 08/10/16 05:06 111 24 40 08/10/16 04:00 40 08/10/16 04:00 97.7 101 20 116/64 100 Mechanical Ventilator 40 08/10/16 03:37 101 08/10/16 03:14 102 21 40 08/10/16 01:22 106 29 40 08/10/16 00:00 103 08/10/16 00:00 97.8 105 20 135/80 100 Mechanical Ventilator 40 08/09/16 23:04 40 08/09/16 22:31 104 22 40 08/09/16 21:17 104 23 40 08/09/16 20:01 40 08/09/16 20:00 98.2 105 20 133/75 99 Mechanical Ventilator 40 08/09/16 19:48 104 08/09/16 19:30 97 18 40 08/09/16 17:00 93 08/09/16 16:35 96 20 40 08/09/16 16:00 98.1 93 14 114/74 99 Mechanical Ventilator 40 08/09/16 16:00 40 08/09/16 14:36 98 25 40 08/09/16 12:45 98 20 40 08/09/16 12:00 98.0 97 19 109/59 100 Mechanical Ventilator 40 08/09/16 12:00 40 08/09/16 11:46 97 08/09/16 10:46 95 23 40 Height (Feet): 5 Height (Inches): 5.00 Weight (Pounds): 188 HEENT: anicteric Respiratory/Chest: normal breath sounds Cardiovascular: regular rhythm Abdomen: soft, non tender Microbiology Date/Time Source Procedure Growth Status 08/07/16 15:00 Nasal Nares MRSA Culture - Final Staphylococcus Aureus - Mrsa Complete 08/09/16 09:33 Stool Clostridium difficile Toxin Assay - Final Complete 08/07/16 15:00 Rectum VRE Culture - Final Enterococcus Faecalis - Vre Enterococcus Faecium - Vre Complete Laboratory Tests Test 08/10/16 03:45 White Blood Count 8.9 K/UL (4.8-10.8) Red Blood Count 2.81 M/UL (4.70-6.10) L Hemoglobin 8.8 G/DL (14.2-18.0) L Hematocrit 26.6 % (42.0-52.0) L Mean Corpuscular Volume 95 FL (80-99) Mean Corpuscular Hemoglobin 31.4 PG (27.0-31.0) H Mean Corpuscular Hemoglobin Concent 33.1 G/DL (32.0-36.0) Red Cell Distribution Width 18.4 % (11.6-14.8) H Platelet Count 124 K/UL (150-450) L Mean Platelet Volume 6.8 FL (6.5-10.1) Neutrophils (%) (Auto) 81.9 % (45.0-75.0) H Lymphocytes (%) (Auto) 7.0 % (20.0-45.0) L Monocytes (%) (Auto) 6.6 % (1.0-10.0) Eosinophils (%) (Auto) 3.6 % (0.0-3.0) H Basophils (%) (Auto) 0.9 % (0.0-2.0) Prothrombin Time 14.3 SEC (9.30-11.50) H Prothromb Time International Ratio 1.4 (0.9-1.1) H Activated Partial Thromboplast Time 39 SEC (23-33) H Sodium Level 135 mEQ/L (135-145) Potassium Level 3.8 mEQ/L (3.4-4.9) Chloride Level 95 mEQ/L (98-107) L Carbon Dioxide Level 22 mEQ/L (20-30) Anion Gap 18 (5-15) H Blood Urea Nitrogen 12 mg/dL (7-23) Creatinine 0.3 mg/dL (0.7-1.2) L Estimat Glomerular Filtration Rate > 60 mL/min (>60) Glucose Level 117 mg/dL (74-106) H Calcium Level 8.1 mg/dL (8.6-10.2) L Phosphorus Level 3.4 mg/dL (2.5-4.8) Magnesium Level 1.8 mg/dL (1.7-2.5) Total Bilirubin 1.1 mg/dL (0.0-1.2) Direct Bilirubin 0.3 mg/dL (0.1-0.3) Aspartate Amino Transf (AST/SGOT) 23 U/L (5-40) Alanine Aminotransferase (ALT/SGPT) 10 U/L (3-41) Alkaline Phosphatase 238 U/L (40-129) H Total Protein 6.9 g/dL (6.6-8.7) Albumin 1.7 g/dL (3.5-5.2) L Globulin 5.2 g/dL Albumin/Globulin Ratio 0.3 (1.0-2.7) L Current Medications Medications (Trade) Dose Ordered Sig/Hair Route PRN Reason Start Time Stop Time Status Last Admin Dose Admin Acetaminophen (Tylenol) 650 mg Q4H PRN ORAL T>100.5 08/07/16 10:15 09/06/16 10:14 08/08/16 16:43 Cefepime HCl/ Dextrose (Maxipime/D5W) 55 ml @ 110 mls/hr EVERY 8 HOURS IV 08/07/16 14:00 08/14/16 13:59 08/10/16 06:43 Dextrose STAT PRN IV Hypoglycemia 08/07/16 10:15 09/06/16 10:14 Diphenhydramine HCl (Benadryl) 25 mg Q6H PRN IVP Itching 08/09/16 20:00 09/08/16 19:59 08/10/16 08:30 Furosemide (Lasix) 20 mg DAILY IV 08/09/16 09:00 09/08/16 08:59 08/10/16 08:30 Lactulose (Cephulac) 30 gm EVERY 6 HOURS ORAL 08/07/16 18:00 09/06/16 17:59 08/10/16 06:42 Lansoprazole (Prevacid) 30 mg DAILY GT 08/09/16 09:00 09/08/16 08:59 08/10/16 08:30 Lorazepam (Ativan 2mg/ml 1ml) 0.5 mg Q4H PRN IV For Anxiety 08/07/16 10:15 08/14/16 10:14 08/09/16 19:31 Morphine Sulfate (Morphine Sulfate) 2 mg Q4H PRN IVP Severe Pain (Pain Scale 7-10) 08/07/16 10:15 08/14/16 10:14 08/10/16 08:29 Ondansetron HCl (Zofran) 4 mg Q6H PRN IVP Nausea & Vomiting 08/07/16 10:15 09/06/16 10:14 Rifaximin (Xifaxan) 550 mg EVERY 12 HOURS ORAL 08/08/16 13:00 09/07/16 12:59 08/10/16 08:30 Spironolactone (Aldactone) 100 mg DAILY ORAL 08/09/16 09:00 09/08/16 08:59 08/10/16 08:30 Zolpidem Tartrate (Ambien) 5 mg HSPRN PRN ORAL Insomnia 08/07/16 21:00 09/06/16 20:59 08/10/16 00:20 SHARRI RAMÍREZ M.D. Aug 10, 2016 10:45
[2016-08-10] MEDS ORDERED: NS 275ml ONE (11:06)
--- NOTE | 2016-08-10 11:24 | Pulmonology Progress Note ---
Assessment/Plan Problems: (1) Chronic respiratory failure (2) large ascites (3) Liver cirrhosis (4) hep c Assessment/Plan awaiting paracentesis check coagulation factors tolerating feeding check labs in am continue abx check cultures pain controlled Subjective ROS Limited/Unobtainable: No Constitutional: Reports: no symptoms HEENT: Repors: no symptoms Respiratory: Reports: no symptoms Allergies: Coded Allergies: No Known Allergies (Unverified , 06/09/16) Objective Last 24 Hour Vital Signs Date Time Temp Pulse Resp B/P Pulse Ox O2 Delivery O2 Flow Rate FiO2 08/10/16 10:55 104 26 40 08/10/16 09:21 100 18 40 08/10/16 09:00 98.4 08/10/16 08:00 40 08/10/16 08:00 106 08/10/16 08:00 98.4 104 22 112/66 98 Mechanical Ventilator 40 08/10/16 06:58 106 21 40 08/10/16 05:06 111 24 40 08/10/16 04:00 40 08/10/16 04:00 97.7 101 20 116/64 100 Mechanical Ventilator 40 08/10/16 03:37 101 08/10/16 03:14 102 21 40 08/10/16 01:22 106 29 40 08/10/16 00:00 103 08/10/16 00:00 97.8 105 20 135/80 100 Mechanical Ventilator 40 08/09/16 23:04 40 08/09/16 22:31 104 22 40 08/09/16 21:17 104 23 40 08/09/16 20:01 40 08/09/16 20:00 98.2 105 20 133/75 99 Mechanical Ventilator 40 08/09/16 19:48 104 08/09/16 19:30 97 18 40 08/09/16 17:00 93 08/09/16 16:35 96 20 40 08/09/16 16:00 98.1 93 14 114/74 99 Mechanical Ventilator 40 08/09/16 16:00 40 08/09/16 14:36 98 25 40 08/09/16 12:45 98 20 40 08/09/16 12:00 98.0 97 19 109/59 100 Mechanical Ventilator 40 08/09/16 12:00 40 08/09/16 11:46 97 Intake and Output 08/09/16 08/10/16 19:00 07:00 Intake Total 535 ml 685 ml Output Total 1030 ml Balance -495 ml 685 ml Intake Free Water 50 ml 100 ml IV Total 55 ml 55 ml Tube Feeding 280 ml 480 ml Other 150 ml 50 ml Output Urine Total 650 ml Stool Total 380 ml Objective General Appearance: cachetic HEENT: normocephalic, atraumatic Cardiovascular: normal peripheral pulses, normal rate Abdomen: normal bowel sounds, hypoactive bowel sounds, hepatomegaly Ext + edema Microbiology Date/Time Source Procedure Growth Status 08/07/16 15:00 Nasal Nares MRSA Culture - Final Staphylococcus Aureus - Mrsa Complete 08/09/16 09:33 Stool Clostridium difficile Toxin Assay - Final Complete 08/07/16 15:00 Rectum VRE Culture - Final Enterococcus Faecalis - Vre Enterococcus Faecium - Vre Complete Laboratory Tests 08/10/16 03:45: White Blood Count 8.9, Red Blood Count 2.81L, Hemoglobin 8.8L, Hematocrit 26.6L , Mean Corpuscular Volume 95, Mean Corpuscular Hemoglobin 31.4H, Mean Corpuscular Hemoglobin Concent 33.1, Red Cell Distribution Width 18.4H, Platelet Count 124L, Mean Platelet Volume 6.8, Neutrophils (%) (Auto) 81.9H, Lymphocytes (%) (Auto) 7.0L, Monocytes (%) (Auto) 6.6, Eosinophils (%) (Auto) 3.6H, Basophils (%) (Auto) 0.9, Prothrombin Time 14.3H, Prothromb Time International Ratio 1.4H, Activated Partial Thromboplast Time 39H, Sodium Level 135, Potassium Level 3.8, Chloride Level 95L, Carbon Dioxide Level 22, Anion Gap 18H, Blood Urea Nitrogen 12, Creatinine 0.3L, Estimat Glomerular Filtration Rate > 60, Glucose Level 117H, Calcium Level 8.1L, Phosphorus Level 3.4, Magnesium Level 1.8, Total Bilirubin 1.1, Direct Bilirubin 0.3, Aspartate Amino Transf (AST/SGOT) 23, Alanine Aminotransferase (ALT/SGPT) 10, Alkaline Phosphatase 238H, Total Protein 6.9, Albumin 1.7L, Globulin 5.2, Albumin/ Globulin Ratio 0.3L Current Medications Medications (Trade) Dose Ordered Sig/Hair Route PRN Reason Start Time Stop Time Status Last Admin Dose Admin Acetaminophen (Tylenol) 650 mg Q4H PRN ORAL T>100.5 08/07/16 10:15 09/06/16 10:14 08/08/16 16:43 Dextrose (Dextrose 50%) STAT PRN IV Hypoglycemia 08/07/16 10:15 09/06/16 10:14 Diphenhydramine HCl (Benadryl) 25 mg Q6H PRN IVP Itching 08/09/16 20:00 09/08/16 19:59 08/10/16 08:30 Furosemide (Lasix) 20 mg DAILY IV 08/09/16 09:00 09/08/16 08:59 08/10/16 08:30 Lactulose (Cephulac) 30 gm EVERY 6 HOURS ORAL 08/07/16 18:00 09/06/16 17:59 08/10/16 11:22 Lansoprazole (Prevacid) 30 mg DAILY GT 08/09/16 09:00 09/08/16 08:59 08/10/16 08:30 Lorazepam (Ativan 2mg/ml 1ml) 0.5 mg Q4H PRN IV For Anxiety 08/07/16 10:15 08/14/16 10:14 08/09/16 19:31 Morphine Sulfate (Morphine Sulfate) 2 mg Q4H PRN IVP Severe Pain (Pain Scale 7-10) 08/07/16 10:15 08/14/16 10:14 08/10/16 08:29 Ondansetron HCl (Zofran) 4 mg Q6H PRN IVP Nausea & Vomiting 08/07/16 10:15 09/06/16 10:14 Rifaximin (Xifaxan) 550 mg EVERY 12 HOURS ORAL 08/08/16 13:00 09/07/16 12:59 08/10/16 08:30 Spironolactone (Aldactone) 100 mg DAILY ORAL 08/09/16 09:00 09/08/16 08:59 08/10/16 08:30 Zolpidem Tartrate (Ambien) 5 mg HSPRN PRN ORAL Insomnia 08/07/16 21:00 09/06/16 20:59 08/10/16 00:20 DANTE HSIEH Aug 10, 2016 11:24
[2016-08-10 12:00] VITALS: BP 115/58
--- NOTE | 2016-08-10 12:16 | GI Progress Note ---
Assessment/Plan Status: stable, unchanged Status Narrative Discussed with Dr. Arndt. Assessment/Plan ASSESSMENT AND PLAN: 1. Anemia. 2. Cirrhosis. 3. Hepatitis C. 4. Dysphagia with gastrostomy tube. 5. Encephalopathy. 6. Thrombocytopenia. 7. Esophageal varices requiring banding. 8. Ascites. 9. Respiratory failure. cdiff negative OB stool negative fu paracentesis cont lactulose + Xifaxan hold GI procedures for now GTF per dietary monitor H&H, transfuse prn fu labs Subjective Subjective limited Objective Last 24 Hour Vital Signs Date Time Temp Pulse Resp B/P Pulse Ox O2 Delivery O2 Flow Rate FiO2 08/10/16 12:00 98.4 94 18 115/58 100 Mechanical Ventilator 40 08/10/16 12:00 40 08/10/16 12:00 102 08/10/16 10:55 104 26 40 08/10/16 09:21 100 18 40 08/10/16 09:00 98.4 08/10/16 08:00 40 08/10/16 08:00 106 08/10/16 08:00 98.4 104 22 112/66 98 Mechanical Ventilator 40 08/10/16 06:58 106 21 40 08/10/16 05:06 111 24 40 08/10/16 04:00 40 08/10/16 04:00 97.7 101 20 116/64 100 Mechanical Ventilator 40 08/10/16 03:37 101 08/10/16 03:14 102 21 40 08/10/16 01:22 106 29 40 08/10/16 00:00 103 08/10/16 00:00 97.8 105 20 135/80 100 Mechanical Ventilator 40 08/09/16 23:04 40 08/09/16 22:31 104 22 40 08/09/16 21:17 104 23 40 08/09/16 20:01 40 08/09/16 20:00 98.2 105 20 133/75 99 Mechanical Ventilator 40 08/09/16 19:48 104 08/09/16 19:30 97 18 40 08/09/16 17:00 93 08/09/16 16:35 96 20 40 08/09/16 16:00 98.1 93 14 114/74 99 Mechanical Ventilator 40 08/09/16 16:00 40 08/09/16 14:36 98 25 40 08/09/16 12:45 98 20 40 Intake and Output 08/09/16 08/10/16 19:00 07:00 Intake Total 535 ml 685 ml Output Total 1030 ml Balance -495 ml 685 ml Intake Free Water 50 ml 100 ml IV Total 55 ml 55 ml Tube Feeding 280 ml 480 ml Other 150 ml 50 ml Output Urine Total 650 ml Stool Total 380 ml Laboratory Tests Test 08/10/16 03:45 White Blood Count 8.9 K/UL (4.8-10.8) Red Blood Count 2.81 M/UL (4.70-6.10) L Hemoglobin 8.8 G/DL (14.2-18.0) L Hematocrit 26.6 % (42.0-52.0) L Mean Corpuscular Volume 95 FL (80-99) Mean Corpuscular Hemoglobin 31.4 PG (27.0-31.0) H Mean Corpuscular Hemoglobin Concent 33.1 G/DL (32.0-36.0) Red Cell Distribution Width 18.4 % (11.6-14.8) H Platelet Count 124 K/UL (150-450) L Mean Platelet Volume 6.8 FL (6.5-10.1) Neutrophils (%) (Auto) 81.9 % (45.0-75.0) H Lymphocytes (%) (Auto) 7.0 % (20.0-45.0) L Monocytes (%) (Auto) 6.6 % (1.0-10.0) Eosinophils (%) (Auto) 3.6 % (0.0-3.0) H Basophils (%) (Auto) 0.9 % (0.0-2.0) Prothrombin Time 14.3 SEC (9.30-11.50) H Prothromb Time International Ratio 1.4 (0.9-1.1) H Activated Partial Thromboplast Time 39 SEC (23-33) H Sodium Level 135 mEQ/L (135-145) Potassium Level 3.8 mEQ/L (3.4-4.9) Chloride Level 95 mEQ/L (98-107) L Carbon Dioxide Level 22 mEQ/L (20-30) Anion Gap 18 (5-15) H Blood Urea Nitrogen 12 mg/dL (7-23) Creatinine 0.3 mg/dL (0.7-1.2) L Estimat Glomerular Filtration Rate > 60 mL/min (>60) Glucose Level 117 mg/dL (74-106) H Calcium Level 8.1 mg/dL (8.6-10.2) L Phosphorus Level 3.4 mg/dL (2.5-4.8) Magnesium Level 1.8 mg/dL (1.7-2.5) Total Bilirubin 1.1 mg/dL (0.0-1.2) Direct Bilirubin 0.3 mg/dL (0.1-0.3) Aspartate Amino Transf (AST/SGOT) 23 U/L (5-40) Alanine Aminotransferase (ALT/SGPT) 10 U/L (3-41) Alkaline Phosphatase 238 U/L (40-129) H Total Protein 6.9 g/dL (6.6-8.7) Albumin 1.7 g/dL (3.5-5.2) L Globulin 5.2 g/dL Albumin/Globulin Ratio 0.3 (1.0-2.7) L Height (Feet): 5 Height (Inches): 5.00 Weight (Pounds): 188 General Appearance: no apparent distress, alert Cardiovascular: normal rate Respiratory/Chest: normal breath sounds, no respiratory distress Abdominal Exam: site - c/d/i Paulette Romero N.P. Aug 10, 2016 12:16
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
[2016-08-10 16:00] VITALS: BP 120/56
[2016-08-10] MEDS: Lactulose 20gm/30ml UDC GT SCH (17:33)
[2016-08-10 19:32] LABS: APPEARANCE, BODY FLUID HAZY; BD FL SOURCE PARACENTESIS; BD FL VOLUME 24 mL; BODY FLUID NUCLEATED CELLS 28 /CUMM; BODY FLUID RBC 10 /CUMM; MONONUCLEAR WBC 37 %; POLYMORPHONUCLEAR WBC 58 %
[2016-08-10 20:00] VITALS: BP_SYST 101; BP_SYST 120; BP_DIAS 57; BP_DIAS 83
[2016-08-10] MEDS: Rifaximin 550mg tab NG SCH (21:21)
[2016-08-10] MEDS: Vitamin A&D Oint 2oz Tube TOPIC SCH (21:23)
[2016-08-11] VITALS: BP 118/80
[2016-08-11] MEDS: Lactulose 20gm/30ml UDC GT SCH ×3 (00:07→12:30)
[2016-08-11 04:30] VITALS: BP 108/64
[2016-08-11 07:47] VITALS: BP 112/66
[2016-08-11] MEDS: Rifaximin 550mg tab NG SCH (10:32)
[2016-08-11] MEDS: Spironolactone 50mg tab ORAL SCH (10:32)
[2016-08-11] MEDS: Vitamin A&D Oint 2oz Tube TOPIC SCH (10:33)
[2016-08-11 10:54] LABS: MEAN CORPUSCULAR HEMOGLOBIN 30.8 PG (27.0-31.0); MEAN CORPUSCULAR HGB CONC 32.1 G/DL (32.0-36.0); MEAN CORPUSCULAR VOLUME 96 FL (80-99); MEAN PLATELET VOLUME 5.4 FL (6.5-10.1); PLATELET COUNT 94 K/UL (150-450); RED BLOOD COUNT 2.77 M/UL (4.70-6.10); RED CELL DISTRIBUTION WIDTH 18.4 % (11.6-14.8); WHITE BLOOD COUNT 7.2 K/UL (4.8-10.8)
[2016-08-11 11:09] LABS: ALANINE AMINOTRANSFERASE 9 U/L (3-41); ALBUMIN/GLOBULIN RATIO 0.3 (1.0-2.7); ANION GAP 13 (5-15); ASPARTATE AMINO TRANSFERASE 21 U/L (5-40); CALCIUM 7.9 mg/dL (8.6-10.2); CARBON DIOXIDE 24 mEQ/L (20-30); CHLORIDE 97 mEQ/L (98-107); CREATININE 0.3 mg/dL (0.7-1.2); GLOMERULAR FILTRATION RATE > 60 mL/min (>60); HEMOLYSIS 0; POTASSIUM 3.9 mEQ/L (3.4-4.9); SODIUM 134 mEQ/L (135-145); TOTAL PROTEIN 5.9 g/dL (6.6-8.7)
[2016-08-11] MEDS ORDERED: LASIX40 MG ORAL (11:11)
--- NOTE | 2016-08-11 11:12 | Pulmonology Progress Note ---
Assessment/Plan Problems: (1) Chronic respiratory failure (2) large ascites (3) Liver cirrhosis (4) hep c Assessment/Plan paracentesis done tolerating feeding check labs in am check cultures pain controlled poor prognosis, dc to halfway Subjective Allergies: Coded Allergies: No Known Allergies (Unverified , 06/09/16) Objective Last 24 Hour Vital Signs Date Time Temp Pulse Resp B/P Pulse Ox O2 Delivery O2 Flow Rate FiO2 08/11/16 09:26 95 21 40 08/11/16 07:47 99.0 98 18 112/66 100 Mechanical Ventilator 40 08/11/16 07:21 90 19 40 08/11/16 04:51 86 17 40 08/11/16 04:31 40 08/11/16 04:30 98.1 87 16 108/64 100 Mechanical Ventilator 40 08/11/16 03:55 90 08/11/16 02:30 93 18 40 08/11/16 01:14 92 20 40 08/11/16 00:30 91 08/11/16 00:00 88 08/11/16 00:00 40 08/11/16 00:00 98.0 89 21 118/80 100 Mechanical Ventilator 40 08/10/16 23:09 92 20 40 08/10/16 21:03 77 14 40 08/10/16 20:00 40 08/10/16 20:00 98.3 89 24 120/83 100 Mechanical Ventilator 40 08/10/16 20:00 90 08/10/16 20:00 98.2 89 17 101/57 98 Mechanical Ventilator 40 08/10/16 19:10 82 17 40 08/10/16 18:00 98.7 08/10/16 17:25 77 15 40 08/10/16 16:00 98.7 102 20 120/56 100 Mechanical Ventilator 40 08/10/16 16:00 40 08/10/16 16:00 103 08/10/16 15:24 99 18 40 08/10/16 13:12 97 18 40 08/10/16 12:00 98.4 94 18 115/58 100 Mechanical Ventilator 40 08/10/16 12:00 40 08/10/16 12:00 102 Intake and Output 08/10/16 08/11/16 19:00 07:00 Intake Total 195 ml 620 ml Output Total 700 ml 8700 ml Balance -505 ml -8080 ml IV Total 55 ml Tube Feeding 90 ml 620 ml Other 50 ml Output Urine Total 500 ml 200 ml Stool Total 200 ml 400 ml Other 8100 ml Objective General Appearance: cachetic HEENT: normocephalic, atraumatic Cardiovascular: normal peripheral pulses, normal rate Abdomen: normal bowel sounds, hypoactive bowel sounds, hepatomegaly Ext + edema Microbiology Date/Time Source Procedure Growth Status 08/09/16 09:33 Stool Clostridium difficile Toxin Assay - Final Complete 08/10/16 17:00 Abdominal Fluid Gram Stain - Final Resulted 08/10/16 17:00 Abdominal Fluid Body Fluid Culture - Preliminary NO GROWTH Resulted Laboratory Tests 08/10/16 17:00: Body Fluid Source Paracentesis, Body Fluid Volume 24, Body Fluid Appearance Hazy , Body Fluid RBC 10, Body Fluid Total Nucleated Cells 28, Body Fluid Polynuclear WBCs (%) 58, Body Fluid Mononuclear WBCs (%) 37, Body Fluid Mesothelial Cells (%) 5, Body Fluid Glucose [Pending], Body Fluid Total Protein [Pending], Body Fluid Albumin [Pending] 08/11/16 10:20: White Blood Count 7.2, Red Blood Count 2.77L, Hemoglobin 8.6L, Hematocrit 26.7L , Mean Corpuscular Volume 96, Mean Corpuscular Hemoglobin 30.8, Mean Corpuscular Hemoglobin Concent 32.1, Red Cell Distribution Width 18.4H, Platelet Count 94L, Mean Platelet Volume 5.4L, Neutrophils (%) (Auto) , Lymphocytes (%) (Auto) , Monocytes (%) (Auto) , Eosinophils (%) (Auto) , Basophils (%) (Auto) , Sodium Level 134L, Potassium Level 3.9, Chloride Level 97L, Carbon Dioxide Level 24, Anion Gap 13, Blood Urea Nitrogen 13, Creatinine 0.3L, Estimat Glomerular Filtration Rate > 60, Glucose Level 92, Calcium Level 7.9L, Total Bilirubin 0.9, Aspartate Amino Transf (AST/SGOT) 21, Alanine Aminotransferase (ALT/SGPT) 9, Alkaline Phosphatase 200H, Total Protein 5.9L, Albumin 1.4L, Globulin 4.5, Albumin/Globulin Ratio 0.3L Current Medications Medications (Trade) Dose Ordered Sig/Hair Route PRN Reason Start Time Stop Time Status Last Admin Dose Admin Acetaminophen (Tylenol) 650 mg Q4H PRN ORAL T>100.5 08/07/16 10:15 09/06/16 10:14 08/08/16 16:43 Dextrose (Dextrose 50%) STAT PRN IV Hypoglycemia 08/07/16 10:15 09/06/16 10:14 Diphenhydramine HCl (Benadryl) 25 mg Q6H PRN IVP Itching 08/09/16 20:00 09/08/16 19:59 08/10/16 08:30 Furosemide (Lasix) 20 mg DAILY IV 08/09/16 09:00 09/08/16 08:59 08/11/16 10:32 Lactulose (Cephulac) 30 gm EVERY 6 HOURS GT 08/10/16 12:42 09/06/16 17:59 08/11/16 05:45 Lansoprazole (Prevacid) 30 mg DAILY GT 08/09/16 09:00 09/08/16 08:59 08/11/16 10:32 Lorazepam (Ativan 2mg/ml 1ml) 0.5 mg Q4H PRN IV For Anxiety 08/07/16 10:15 08/14/16 10:14 08/09/16 19:31 Morphine Sulfate (Morphine Sulfate) 2 mg Q4H PRN IVP Severe Pain (Pain Scale 7-10) 08/07/16 10:15 08/14/16 10:14 08/10/16 17:33 Ondansetron HCl (Zofran) 4 mg Q6H PRN IVP Nausea & Vomiting 08/07/16 10:15 09/06/16 10:14 Rifaximin (Xifaxan) 550 mg EVERY 12 HOURS NG 08/10/16 12:42 09/07/16 12:59 08/11/16 10:32 Spironolactone (Aldactone) 100 mg DAILY ORAL 08/09/16 09:00 09/08/16 08:59 08/11/16 10:32 Vitamin A/Vitamin D (A & D Oint) 1 applic EVERY 12 HOURS TOPIC 08/10/16 21:00 09/09/16 20:59 08/11/16 10:33 Zolpidem Tartrate (Ambien) 5 mg HSPRN PRN ORAL Insomnia 08/07/16 21:00 09/06/16 20:59 08/10/16 00:20 DANTE HSIEH Aug 11, 2016 11:12
[2016-08-11 11:55] LABS: ANISOCYTOSIS 2+; BAND NEUTROPHILS % (MANUAL) 0 % (0-8); BASOPHILS % (MANUAL) 0 % (0-2); EOSINOPHILS % (MANUAL) 2 % (0-3); HYPOCHROMASIA 2+; LYMPHOCYTES % (MANUAL) 9 % (20-45); NEUTROPHILS % (MANUAL) 85 % (45-75); PLATELET ESTIMATE DECREASED; PLATELET MORPHOLOGY NORMAL; TOTAL CELLS COUNTED 100
[2016-08-11 12:00] VITALS: BP 109/59
--- NOTE | 2016-08-11 12:25 | Infectious Diseases Prog Note ---
Assessment/Plan Assessment/Plan ASSESSMENT: 56 y/o male with: / // Recent HCAP / VAP - repeat SPcx: P mirabilis and KPC SP Rx - SCx PSA and Pr. Mirabilis // Hx of Polymicrobial ( MRSA, M.morganii ,PSA ) bacteremia 06/02 , repeat BCx :neg , SP Rx - TTE(-) SBE // Hx of Recurrent gross hematuria and recurrent UTI - UCx : ESBL EColi ( Colonizer ) // Stage IV sacral debuitus ulcer // HCV Ab+ // Negative HIV // Elev Alk Ph: - HIDA scan :neg 07/15 // Afebrile without leukocytosis // Elevated ESR, CRP // H. pylori based on last endoscopy. plan to treat when the patient gets discharged as per GI // SP paracentesis : no evid of SBP // GI bleed , SP EGD 07/22 : Esophagus ulceration on the band and severe portal hypertensive gastropathy. // Chronic liver disease / cirrhosis with elevated LFTs, US : GB wall thickening ( probably 2nd to ascites ) CT: Liver cirrhosis with stigmata of portal hypertension // Chronic VDRF SP trach, PEG // h/o CVA // [place] resident // MDRO colonized // NKDA // Full Code PLAN: - monitor pt off of AB Rx SP IV Cefepime ( pt has no fever , leukocytosis , +ve UCx :colonizer ) 07/28 SP Merrem and Colistin INH d# 7 / - monitor CBC, temperatures - monitor BMP - monitor CXR - vent support, trach care, aspiration precaution - wound care Subjective Constitutional: Denies: anorexia, chills, drenching sweats, fatigue, fever, no symptoms, other Allergies: Coded Allergies: No Known Allergies (Unverified , 06/09/16) Objective Vital Signs Last 24 Hour Vital Signs Date Time Temp Pulse Resp B/P Pulse Ox O2 Delivery O2 Flow Rate FiO2 08/11/16 12:00 40 08/11/16 09:26 95 21 40 08/11/16 08:00 99 08/11/16 08:00 40 08/11/16 07:47 99.0 98 18 112/66 100 Mechanical Ventilator 40 08/11/16 07:21 90 19 40 08/11/16 04:51 86 17 40 08/11/16 04:31 40 08/11/16 04:30 98.1 87 16 108/64 100 Mechanical Ventilator 40 08/11/16 03:55 90 08/11/16 02:30 93 18 40 08/11/16 01:14 92 20 40 08/11/16 00:30 91 08/11/16 00:00 88 08/11/16 00:00 40 08/11/16 00:00 98.0 89 21 118/80 100 Mechanical Ventilator 40 08/10/16 23:09 92 20 40 08/10/16 21:03 77 14 40 08/10/16 20:00 40 08/10/16 20:00 98.3 89 24 120/83 100 Mechanical Ventilator 40 08/10/16 20:00 90 08/10/16 20:00 98.2 89 17 101/57 98 Mechanical Ventilator 40 08/10/16 19:10 82 17 40 08/10/16 18:00 98.7 08/10/16 17:25 77 15 40 08/10/16 16:00 98.7 102 20 120/56 100 Mechanical Ventilator 40 08/10/16 16:00 40 08/10/16 16:00 103 08/10/16 15:24 99 18 40 08/10/16 13:12 97 18 40 Height (Feet): 5 Height (Inches): 5.00 Weight (Pounds): 202 HEENT: atraumatic Respiratory/Chest: lungs clear Cardiovascular: regularly irregular Abdomen: no organomegaly Microbiology Date/Time Source Procedure Growth Status 08/09/16 09:33 Stool Clostridium difficile Toxin Assay - Final Complete 08/10/16 17:00 Abdominal Fluid Gram Stain - Final Resulted 08/10/16 17:00 Abdominal Fluid Body Fluid Culture - Preliminary NO GROWTH Resulted Laboratory Tests Test 08/10/16 17:00 08/11/16 10:20 Body Fluid Source Paracentesis Body Fluid Volume 24 mL Body Fluid Appearance Hazy Body Fluid RBC 10 /CUMM Body Fluid Total Nucleated Cells 28 /CUMM Body Fluid Polynuclear WBCs (%) 58 % Body Fluid Mononuclear WBCs (%) 37 % Body Fluid Mesothelial Cells (%) 5 % Body Fluid Glucose Pending Body Fluid Total Protein Pending Body Fluid Albumin Pending White Blood Count 7.2 K/UL (4.8-10.8) Red Blood Count 2.77 M/UL (4.70-6.10) L Hemoglobin 8.6 G/DL (14.2-18.0) L Hematocrit 26.7 % (42.0-52.0) L Mean Corpuscular Volume 96 FL (80-99) Mean Corpuscular Hemoglobin 30.8 PG (27.0-31.0) Mean Corpuscular Hemoglobin Concent 32.1 G/DL (32.0-36.0) Red Cell Distribution Width 18.4 % (11.6-14.8) H Platelet Count 94 K/UL (150-450) L Mean Platelet Volume 5.4 FL (6.5-10.1) L Neutrophils (%) (Auto) % (45.0-75.0) Lymphocytes (%) (Auto) % (20.0-45.0) Monocytes (%) (Auto) % (1.0-10.0) Eosinophils (%) (Auto) % (0.0-3.0) Basophils (%) (Auto) % (0.0-2.0) Differential Total Cells Counted 100 Neutrophils % (Manual) 85 % (45-75) H Lymphocytes % (Manual) 9 % (20-45) L Monocytes % (Manual) 4 % (1-10) Eosinophils % (Manual) 2 % (0-3) Basophils % (Manual) 0 % (0-2) Band Neutrophils 0 % (0-8) Platelet Estimate Decreased L Platelet Morphology Normal Hypochromasia 2+ Anisocytosis 2+ Sodium Level 134 mEQ/L (135-145) L Potassium Level 3.9 mEQ/L (3.4-4.9) Chloride Level 97 mEQ/L (98-107) L Carbon Dioxide Level 24 mEQ/L (20-30) Anion Gap 13 (5-15) Blood Urea Nitrogen 13 mg/dL (7-23) Creatinine 0.3 mg/dL (0.7-1.2) L Estimat Glomerular Filtration Rate > 60 mL/min (>60) Glucose Level 92 mg/dL (74-106) Calcium Level 7.9 mg/dL (8.6-10.2) L Total Bilirubin 0.9 mg/dL (0.0-1.2) Aspartate Amino Transf (AST/SGOT) 21 U/L (5-40) Alanine Aminotransferase (ALT/SGPT) 9 U/L (3-41) Alkaline Phosphatase 200 U/L (40-129) H Total Protein 5.9 g/dL (6.6-8.7) L Albumin 1.4 g/dL (3.5-5.2) L Globulin 4.5 g/dL Albumin/Globulin Ratio 0.3 (1.0-2.7) L Current Medications Medications (Trade) Dose Ordered Sig/Hair Route PRN Reason Start Time Stop Time Status Last Admin Dose Admin Acetaminophen (Tylenol) 650 mg Q4H PRN ORAL T>100.5 08/07/16 10:15 09/06/16 10:14 08/08/16 16:43 Dextrose (Dextrose 50%) STAT PRN IV Hypoglycemia 08/07/16 10:15 09/06/16 10:14 Diphenhydramine HCl (Benadryl) 25 mg Q6H PRN IVP Itching 08/09/16 20:00 09/08/16 19:59 08/10/16 08:30 Furosemide (Lasix) 20 mg DAILY IV 08/09/16 09:00 09/08/16 08:59 08/11/16 10:32 Lactulose (Cephulac) 30 gm EVERY 6 HOURS GT 08/10/16 12:42 09/06/16 17:59 08/11/16 05:45 Lansoprazole (Prevacid) 30 mg DAILY GT 08/09/16 09:00 09/08/16 08:59 08/11/16 10:32 Lorazepam (Ativan 2mg/ml 1ml) 0.5 mg Q4H PRN IV For Anxiety 08/07/16 10:15 08/14/16 10:14 08/09/16 19:31 Morphine Sulfate (Morphine Sulfate) 2 mg Q4H PRN IVP Severe Pain (Pain Scale 7-10) 08/07/16 10:15 08/14/16 10:14 08/10/16 17:33 Ondansetron HCl (Zofran) 4 mg Q6H PRN IVP Nausea & Vomiting 08/07/16 10:15 09/06/16 10:14 Rifaximin (Xifaxan) 550 mg EVERY 12 HOURS NG 08/10/16 12:42 09/07/16 12:59 08/11/16 10:32 Spironolactone (Aldactone) 100 mg DAILY ORAL 08/09/16 09:00 09/08/16 08:59 08/11/16 10:32 Vitamin A/Vitamin D (A & D Oint) 1 applic EVERY 12 HOURS TOPIC 08/10/16 21:00 09/09/16 20:59 08/11/16 10:33 Zolpidem Tartrate (Ambien) 5 mg HSPRN PRN ORAL Insomnia 08/07/16 21:00 09/06/16 20:59 08/10/16 00:20 SHARRI RAMÍREZ M.D. Aug 11, 2016 12:25
--- NOTE | 2016-08-11 12:57 | Diagnostic Imaging Report ---
APPROVED REPORT CPT Code: 90340 Present Symptoms Lower Extremity Pain: Bilateral Lower Extremity Edema: Bilateral Shortness of breath Comments Prior venous duplex study: 07/21/2016. BILATERAL: Imaging reveals a patent deep venous system bilaterally. There is no evidence of thrombus within the femoral, popliteal or tibial segments. The greater saphenous veins are also within normal limits. Doppler indicates normal spontaneous flow within these segments. Incidental finding: Montoya's cyst in right popliteal fossa measuring 2.5 cm x 2.0 cm x 1.4 cm.
[2016-08-11] MEDS ORDERED: NS 275ml ONE (15:49)
--- NOTE | 2016-08-11 16:33 | GI Progress Note ---
Assessment/Plan Problems: (1) large ascites (2) hep c (3) Thrombocytopenia ICD Codes: D69.6 - Thrombocytopenia, unspecified SNOMED: 942465481 (4) Liver cirrhosis ICD Codes: K74.60 - Unspecified cirrhosis of liver SNOMED: 33058919 (5) Hyponatremia ICD Codes: E87.1 - Hypo-osmolality and hyponatremia SNOMED: 37064166 (6) Chronic respiratory failure ICD Codes: J96.10 - Chronic respiratory failure, unspecified whether with hypoxia or hypercapnia SNOMED: 72592311 (7) Feeding by G-tube ICD Codes: Z93.1 - Gastrostomy status SNOMED: 411160251, 599801949 Status: stable Status Narrative Discussed with Dr. Arndt. Assessment/Plan ASSESSMENT AND PLAN: 1. Anemia. 2. Cirrhosis. 3. Hepatitis C. 4. Dysphagia with gastrostomy tube. 5. Encephalopathy. 6. Thrombocytopenia. 7. Esophageal varices requiring banding. 8. Ascites. 9. Respiratory failure. cdiff negative OB stool negative s/p paracentesis ok for DC per GI standpoint cont lactulose + Xifaxan hold GI procedures for now GTF per dietary monitor H&H, transfuse prn fu labs Subjective Subjective limited Objective Last 24 Hour Vital Signs Date Time Temp Pulse Resp B/P Pulse Ox O2 Delivery O2 Flow Rate FiO2 08/11/16 15:15 99 21 40 08/11/16 14:24 96 22 40 08/11/16 13:06 106 27 40 08/11/16 12:00 40 08/11/16 12:00 98.1 101 20 109/59 100 Mechanical Ventilator 40 08/11/16 12:00 97 08/11/16 10:54 96 19 40 08/11/16 09:26 95 21 40 08/11/16 08:00 99 08/11/16 08:00 40 08/11/16 07:47 99.0 98 18 112/66 100 Mechanical Ventilator 40 08/11/16 07:21 90 19 40 08/11/16 04:51 86 17 40 08/11/16 04:31 40 08/11/16 04:30 98.1 87 16 108/64 100 Mechanical Ventilator 40 08/11/16 03:55 90 08/11/16 02:30 93 18 40 08/11/16 01:14 92 20 40 08/11/16 00:30 91 08/11/16 00:00 88 08/11/16 00:00 40 08/11/16 00:00 98.0 89 21 118/80 100 Mechanical Ventilator 40 08/10/16 23:09 92 20 40 08/10/16 21:03 77 14 40 08/10/16 20:00 40 08/10/16 20:00 98.3 89 24 120/83 100 Mechanical Ventilator 40 08/10/16 20:00 90 08/10/16 20:00 98.2 89 17 101/57 98 Mechanical Ventilator 40 08/10/16 19:10 82 17 40 08/10/16 18:00 98.7 08/10/16 17:25 77 15 40 Intake and Output 08/10/16 08/11/16 19:00 07:00 Intake Total 195 ml 680 ml Output Total 700 ml 8700 ml Balance -505 ml -8020 ml IV Total 55 ml Tube Feeding 90 ml 680 ml Other 50 ml Output Urine Total 500 ml 200 ml Stool Total 200 ml 400 ml Other 8100 ml Laboratory Tests Test 08/10/16 17:00 08/11/16 10:20 Body Fluid Source Paracentesis Body Fluid Volume 24 mL Body Fluid Appearance Hazy Body Fluid RBC 10 /CUMM Body Fluid Total Nucleated Cells 28 /CUMM Body Fluid Polynuclear WBCs (%) 58 % Body Fluid Mononuclear WBCs (%) 37 % Body Fluid Mesothelial Cells (%) 5 % Body Fluid Glucose Pending Body Fluid Total Protein Pending Body Fluid Albumin Pending White Blood Count 7.2 K/UL (4.8-10.8) Red Blood Count 2.77 M/UL (4.70-6.10) L Hemoglobin 8.6 G/DL (14.2-18.0) L Hematocrit 26.7 % (42.0-52.0) L Mean Corpuscular Volume 96 FL (80-99) Mean Corpuscular Hemoglobin 30.8 PG (27.0-31.0) Mean Corpuscular Hemoglobin Concent 32.1 G/DL (32.0-36.0) Red Cell Distribution Width 18.4 % (11.6-14.8) H Platelet Count 94 K/UL (150-450) L Mean Platelet Volume 5.4 FL (6.5-10.1) L Neutrophils (%) (Auto) % (45.0-75.0) Lymphocytes (%) (Auto) % (20.0-45.0) Monocytes (%) (Auto) % (1.0-10.0) Eosinophils (%) (Auto) % (0.0-3.0) Basophils (%) (Auto) % (0.0-2.0) Differential Total Cells Counted 100 Neutrophils % (Manual) 85 % (45-75) H Lymphocytes % (Manual) 9 % (20-45) L Monocytes % (Manual) 4 % (1-10) Eosinophils % (Manual) 2 % (0-3) Basophils % (Manual) 0 % (0-2) Band Neutrophils 0 % (0-8) Platelet Estimate Decreased L Platelet Morphology Normal Hypochromasia 2+ Anisocytosis 2+ Sodium Level 134 mEQ/L (135-145) L Potassium Level 3.9 mEQ/L (3.4-4.9) Chloride Level 97 mEQ/L (98-107) L Carbon Dioxide Level 24 mEQ/L (20-30) Anion Gap 13 (5-15) Blood Urea Nitrogen 13 mg/dL (7-23) Creatinine 0.3 mg/dL (0.7-1.2) L Estimat Glomerular Filtration Rate > 60 mL/min (>60) Glucose Level 92 mg/dL (74-106) Calcium Level 7.9 mg/dL (8.6-10.2) L Total Bilirubin 0.9 mg/dL (0.0-1.2) Aspartate Amino Transf (AST/SGOT) 21 U/L (5-40) Alanine Aminotransferase (ALT/SGPT) 9 U/L (3-41) Alkaline Phosphatase 200 U/L (40-129) H Total Protein 5.9 g/dL (6.6-8.7) L Albumin 1.4 g/dL (3.5-5.2) L Globulin 4.5 g/dL Albumin/Globulin Ratio 0.3 (1.0-2.7) L Microbiology Date/Time Source Procedure Growth Status 08/10/16 17:00 Abdominal Fluid Gram Stain - Final Resulted 08/10/16 17:00 Abdominal Fluid Body Fluid Culture - Preliminary NO GROWTH Resulted Height (Feet): 5 Height (Inches): 5.00 Weight (Pounds): 202 General Appearance: no apparent distress, alert Cardiovascular: normal rate Respiratory/Chest: normal breath sounds, no respiratory distress Abdominal Exam: normal bowel sounds, non tender, soft Paulette Romero N.P. Aug 11, 2016 16:33
[2016-08-11 18:13] LABS: PROTEIN, BODY FLUID 0.9 g/dL (.)
--- NOTE | 2016-08-11 18:15 | Cardiology Report ---
APPROVED REPORT EKG Measurement Heart [id number] [id number] Normal sinus rhythm Right bundle branch block Abnormal ECG
--- NOTE | 2016-08-12 20:23 | Discharge Summary ---
Discharge Summary Hospital Course Date of Admission Aug 07, 2016 at 10:46 Date of Discharge Aug 11, 2016 at 15:50 Admitting Diagnosis acities,uti HPI Arnaldo Ramirez is a 56 year old male who was admitted on Aug 07, 2016 at 10:46 for Ascites,Urinary Tract Infection Hospital Course [id number] Discharge Discharge Disposition Patient was discharged to SNF/Subacute Facility(03) Discharge Diagnoses: Kayli Hoff NP Aug 12, 2016 20:23
--- NOTE | 2016-08-13 01:30 | Discharge Summary 2 SIG ---
DATE OF ADMISSION: 08/07/2016 DATE OF DISCHARGE: 08/11/2016 CONSULTANTS: 1. Anthony Arndt M.D. 2. Marc Urena M.D. BRIEF HOSPITAL COURSE: The patient is a 56-year-old male with history of end-stage liver disease, on chronic vent, on trach, and PEG, presented with increasing abdominal girth. The patient has a history of cirrhosis and liver cell carcinoma with malignant ascites. Laboratories showed urinary tract infection. CT of the abdomen and pelvis showed massive ascites. The patient was admitted for further evaluation and was followed by Dr. Arndt and was continued on proton-pump inhibitors, lactulose, and Xifaxan. Hemoglobin dropped to 7.7 and received one unit packed RBC transfusion. Venous Duplex of lower extremity was negative for DVT with incidental finding of Montoya's cyst to the right popliteal fossa. The patient underwent paracentesis. Cultures did not isolate any growth. The patient was initially given IV cefepime. He has a history of recurrent urinary tract infection with ESBL E. coli. IV cefepime was discontinued and was monitored off antibiotic. He came in with multiple pressure ulcers. Wound care was provided and was given low air loss mattress overlay p200. The patient was eventually discharged back to SNF. FINAL DIAGNOSES: 1. Recurrent ascites. Status post paracentesis with no evidence of supraventricular tachycardia. 2. Recurrent hospital and community-acquired pneumonia/Ventilator-associated pneumoniaChronic respiratory failure. 3. Recurrent urinary tract infection. 4. Liver cirrhosis. 5. Elevated liver function tests. 6. Hepatitis C virus. 7. Stage IV sacral decubitus ulcer, present on admission. 8. Chronic liver disease with cirrhosis and 9. Feeding via gastrostomy tube. 10. Thrombocytopenia. 11. Elevated alkaline phosphatase. Uma Breen M.D. I have been assigned to dictate discharge summary on this account and I was not involved in the patient's management. Kayli Hoff N.P. DR: Rhett JOB#: [id number] CC: JEROD
[2016-08-14 09:09] LABS: COMMENT,BODY FLUID PATHOLOGIST COMMENT
== END 2016-08-11 15:50 | DRG 279 ==
LOC: EDBD 07:32 → EMR 07:45 → EDBEDREQ 10:10 → 2W 10:46
PROC: 5A1955Z Respiratory Ventilation, Greater than 96 Consecutive Hours (ICD-10-PCS; principal; 2016-08-07)
PROC: 30230N1 Transfusion of Nonautologous Red Blood Cells into Peripheral Vein, Open Approach (ICD-10-PCS; 2016-08-08)
PROC: 0W9G3ZZ Drainage of Peritoneal Cavity, Percutaneous Approach (ICD-10-PCS; 2016-08-10)
DX: K72.90 Hepatic failure, unspecified without coma (principal); G93.40 Encephalopathy, unspecified; Z99.11 Dependence on respirator [ventilator] status; J18.9 Pneumonia, unspecified organism; L89.154 Pressure ulcer of sacral region, stage 4; J96.10 Chronic respiratory failure, unspecified whether with hypoxia or hypercapnia; Z43.0 Encounter for attention to tracheostomy; K74.60 Unspecified cirrhosis of liver; R18.8 Other ascites; J44.9 Chronic obstructive pulmonary disease, unspecified; E87.1 Hypo-osmolality and hyponatremia; K21.9 Gastro-esophageal reflux disease without esophagitis; R13.10 Dysphagia, unspecified; D69.6 Thrombocytopenia, unspecified; D64.9 Anemia, unspecified; R19.7 Diarrhea, unspecified; R74.8 Abnormal levels of other serum enzymes; Z86.73 Personal history of transient ischemic attack (TIA), and cerebral infarction without residual deficits; B96.20 Unspecified Escherichia coli [E. coli] as the cause of diseases classified elsewhere; Z43.1 Encounter for attention to gastrostomy; N39.0 Urinary tract infection, site not specified; B18.2 Chronic viral hepatitis C; G40.909 Epilepsy, unspecified, not intractable, without status epilepticus; I85.10 Secondary esophageal varices without bleeding; K76.6 Portal hypertension; Z85.05 Personal history of malignant neoplasm of liver
CPT/HCPCS: 36415; 71010; 74177; 76942; 80053; 80061; 81003; 82105; 82140; 82248; 82270; 83690; 83735; 84100; 84443; 85007; 85025; 85610; 85730; 86850; 86900; 86901; 86920; 87070; 87081; 87086; 87181; 87205; 87324; 88104; 89051; 93005; 93970; 94002; 94003; 94664

== ENCOUNTER 2016-08-18 11:01 | Inpatient (IN) | payer MEDICAID ==
[~2016-08-18] VITALS: Ht 172.7 cm; Wt 72.6 kg
[~2016-08-18 11:01] MED LIST changes: +LASIX40 MG ORAL
[2016-08-18] MEDS ORDERED: metroNIDAZOLE 500mg 100 ML IV STA (11:06)
[2016-08-18] MEDS ORDERED: Cefepime HCl 1 GM in NS 55 ML IV STA (11:06)
--- NOTE | 2016-08-18 11:12 | Emergency Room Report ---
History of Present Illness General Source: Medical Record, EMS Present Illness HPI Patient presents with respiratory difficulty and altered mentation. Usually apparently responds to interactions, but non-verbal due to trach. H/O hep c and ascites. Paramedics state had normal glucose in field. They record GCS = 6. Ascites from hepatitis C. Trach dependent. Cervantes. Seizures Esophageal varices post banding Discharged 08/11 with these dx: FINAL DIAGNOSES: 1. Recurrent ascites. Status post paracentesis with no evidence of supraventricular tachycardia. 2. Recurrent hospital and community-acquired pneumonia/Ventilator-associated pneumoniaChronic respiratory failure. 3. Recurrent urinary tract infection. 4. Liver cirrhosis. 5. Elevated liver function tests. 6. Hepatitis C virus. 7. Stage IV sacral decubitus ulcer, present on admission. 8. Chronic liver disease with cirrhosis and 9. Feeding via gastrostomy tube. 10. Thrombocytopenia. 11. Elevated alkaline phosphatase. Allergies: Coded Allergies: No Known Allergies (Unverified , 06/09/16) Patient History Limited by: medical condition Past Medical History: see triage record, old chart reviewed Past Surgical History: other - vent, g tube Social History: Denies: alcohol use - prior, drug use - prior IVDA Social History Narrative SNF Reviewed Nursing Documentation: PMH: Agreed, PSxH: Agreed Nursing Documentation-PMH Hx Cardiac Problems: Yes - Hep C Hx Hypertension: Yes Hx COPD: Yes - tracheostomy Hx Cancer: Yes - liver cirrhosis Hx Gastrointestinal Problems: Yes - GERD G tube Hx Neurological Problems: Yes Hx Cerebrovascular Accident: Yes - NON TRAUMATIC SUBDURAL HEMORRHAGE Hx Seizures: Yes - epilepsy Hx Dysphasia: Yes Hx Weakness: Yes Review of Systems All Other Systems: limited Physical Exam Vital Signs Date Time Temp Pulse Resp B/P Pulse Ox O2 Delivery O2 Flow Rate FiO2 08/18/16 11:10 98.4 88 16 124/78 99 Mechanical Ventilator 08/18/16 11:14 50 Sp02 EP Interpretation: reviewed, normal General Appearance: Chronically Ill, Stupor - GCS = 6 Head: normocephalic Eyes: bilateral eye PERRL, bilateral eye normal inspection ENT: moist mucus membranes Neck: supple, tracheotomy - beige sputum Respiratory: crackles, wheezing, expiration Cardiovascular #1: regular rate, rhythm Cardiovascular #2: 2+ radial (R) Gastrointestinal: non tender, other - gastrosotomy, distension, ascites Genitourinary: other - cervantes Musculoskeletal: no calf tenderness, decreased range of motion Neurologic: motor weakness, other - eyes open, not respond to pain Skin: other - sacral decub Medical Decision Making Diagnostic Impression: Primary Impression: Sepsis Qualified Codes: A41.9 - Sepsis, unspecified organism Additional Impressions: UTI (urinary tract infection) Qualified Codes: T83.511A - Infection and inflammatory reaction due to indwelling urethral catheter, initial encounter; N39.0 - Urinary tract infection , site not specified Ascites Qualified Codes: R18.8 - Other ascites Pneumonia Qualified Codes: J18.1 - Lobar pneumonia, unspecified organism Decubitus ulcer Qualified Codes: L89.304 - Pressure ulcer of unspecified buttock, stage 4 Anemia Qualified Codes: D64.9 - Anemia, unspecified Hepatic encephalopathy Hyponatremia ER Course Patient presents with ALOC and question of resp distress. DDx: hepatic encephalopathy, electrolyte abnorrmality, sepsis, pneumonia, SBP amongst others. Emeergent evaluation with EKG, labs, CXR and abd film. Treatment for sepsis with fluid bolus and antibiotics. The resp findings suggest pneumonia as source. With ascites, concern over liver failure. Very complicated patient. CXR with RLL infiltrate/inc hightower. Labs c/w sepsis. Anemia is significant, but not as low as in past. Clinically, not need transfusion emergently. Ammonia slightly high - clinically could be source of AMS though low sodium contributes. Mild coagulopathy. Pyuria suggests UTI. Sodium low - being treated with NS. Lactic acid elevated. Mental status unchanged. VS stable. Admit RAJWINDER, Dr. Breen. Laboratory Tests Test 08/18/16 11:20 08/18/16 11:30 08/19/16 04:15 Urine Color Yellow Urine Appearance Slightly cloudy Urine pH 5 (4.5-8.0) Urine Specific [place] 1.015 (1.005-1.035) Urine Protein 1+ (NEGATIVE) H Urine Glucose (UA) Negative (NEGATIVE) Urine Ketones 1+ (NEGATIVE) H Urine Occult Blood 5+ (NEGATIVE) H Urine Nitrite Negative (NEGATIVE) Urine Bilirubin Negative (NEGATIVE) Urine Urobilinogen 1 MG/DL (0.0-1.0) H Urine Leukocyte Esterase 3+ (NEGATIVE) H Urine RBC 10-15 /HPF (0 - 0) H Urine WBC 30-40 /HPF (0 - 0) H Urine Squamous Epithelial Cells Occasional /LPF Urine Bacteria Moderate /HPF (NONE) H White Blood Count 7.0 K/UL (4.8-10.8) 5.9 K/UL (4.8-10.8) Red Blood Count 2.25 M/UL (4.70-6.10) L 2.08 M/UL (4.70-6.10) L Hemoglobin 7.1 G/DL (14.2-18.0) L 6.8 G/DL (14.2-18.0) *L Hematocrit 20.9 % (42.0-52.0) L 19.6 % (42.0-52.0) L Mean Corpuscular Volume 93 FL (80-99) 95 FL (80-99) Mean Corpuscular Hemoglobin 31.6 PG (27.0-31.0) H 32.6 PG (27.0-31.0) H Mean Corpuscular Hemoglobin Concent 34.0 G/DL (32.0-36.0) 34.5 G/DL (32.0-36.0) Red Cell Distribution Width 18.0 % (11.6-14.8) H 18.2 % (11.6-14.8) H Platelet Count 127 K/UL (150-450) L 117 K/UL (150-450) L Mean Platelet Volume 5.5 FL (6.5-10.1) L 5.7 FL (6.5-10.1) L Neutrophils (%) (Auto) % (45.0-75.0) % (45.0-75.0) Lymphocytes (%) (Auto) % (20.0-45.0) % (20.0-45.0) Monocytes (%) (Auto) % (1.0-10.0) % (1.0-10.0) Eosinophils (%) (Auto) % (0.0-3.0) % (0.0-3.0) Basophils (%) (Auto) % (0.0-2.0) % (0.0-2.0) Differential Total Cells Counted 100 100 Neutrophils % (Manual) 88 % (45-75) H 76 % (45-75) H Lymphocytes % (Manual) 4 % (20-45) L 10 % (20-45) L Monocytes % (Manual) 6 % (1-10) 7 % (1-10) Eosinophils % (Manual) 2 % (0-3) 5 % (0-3) H Basophils % (Manual) 0 % (0-2) 2 % (0-2) Band Neutrophils 0 % (0-8) 0 % (0-8) Platelet Estimate Decreased L Decreased L Platelet Morphology Normal Normal Hypochromasia 1+ 4+ Anisocytosis 1+ 2+ Prothrombin Time 13.5 SEC (9.30-11.50) H Prothrombin Time INR 1.3 (0.9-1.1) H PTT 31 SEC (23-33) Sodium Level 125 mEQ/L (135-145) L 128 mEQ/L (135-145) L Potassium Level 4.3 mEQ/L (3.4-4.9) 4.3 mEQ/L (3.4-4.9) Chloride Level 84 mEQ/L (98-107) L 89 mEQ/L (98-107) L Carbon Dioxide Level 22 mEQ/L (20-30) 24 mEQ/L (20-30) Anion Gap 19 (5-15) H 15 (5-15) Blood Urea Nitrogen 34 mg/dL (7-23) H 29 mg/dL (7-23) H Creatinine 0.5 mg/dL (0.7-1.2) L 0.5 mg/dL (0.7-1.2) L Estimate Glomerular Filtration Rate > 60 mL/min (>60) > 60 mL/min (>60) Glucose Level 113 mg/dL (74-106) H 92 mg/dL (74-106) Lactic Acid Level 3.00 mmol/L (0.66-2.22) H Calcium Level 7.9 mg/dL (8.6-10.2) L 7.9 mg/dL (8.6-10.2) L Iron Level 41 ug/dL (59-158) L Total Iron Binding Capacity 144 ug/dL (250-400) L Percent Iron Saturation 28 % (15-50) Unsaturated Iron Binding 103 ug/dL (112-346) L Total Bilirubin 0.9 mg/dL (0.0-1.2) Aspartate Amino Transferase (AST) 25 U/L (5-40) Alanine Aminotransferase (ALT) 9 U/L (3-41) Alkaline Phosphatase 209 U/L (40-129) H Ammonia 68 umol/L (16-60) H Total Creatine Kinase 19 U/L (38-174) L Troponin I < 0.30 ng/mL (<=0.30) Pro-B-Type Natriuretic Peptide 519 pg/mL (0-125) H Total Protein 6.6 g/dL (6.6-8.7) Albumin 2.0 g/dL (3.5-5.2) L 1.6 g/dL (3.5-5.2) L Globulin 4.6 g/dL Albumin/Globulin Ratio 0.4 (1.0-2.7) L Lipase 22 U/L (< 60) Spherocytes 2+ Phosphorus Level 5.5 mg/dL (2.5-4.8) H EKG Diagnostic Results Rate: normal ST Segments: no acute changes - rbbb Rhythm Strip Diag. Results EP Interpretation: yes Rhythm: NSR, no PVC's, no ectopy Chest X-Ray Diagnostic Results Chest X-Ray Ordered: Yes # of Views/Limited/Complete: 1 View Interpretation: no effusion, no pneumothorax, other - R interstitial hightwoer Indication: Other Impression: Other Date Electronically Signed: Aug 18, 2016 Time Electronically Signed: 11:35 Interpreting ER Physician: Marilu Other X-Ray Diagnostic Results X-Ray ordered: abdomen # of Views/Limited Vs Complete: 1 View Interpretation: other - ascites, no obstruction, centralized bowels Indication: Swelling Impression: Other Date Electronically Signed: Aug 18, 2016 Time Electronically Signed: 11:35 Interpreting ER Physician: Marilu Last Vital Signs Date Time Temp Pulse Resp B/P Pulse Ox O2 Delivery O2 Flow Rate FiO2 08/19/16 06:58 88 21 50 08/19/16 04:00 97.8 121/67 100 Trach Collar Status: improved Disposition: ADMITTED INPATIENT Condition: Serious Bernardo Michel M.D. Aug 18, 2016 11:12
[2016-08-18] MEDS ORDERED: Albuterol ud Inhalation HHN ONE (11:15)
[2016-08-18] MEDS ORDERED: Vancomycin 1 GM in NS 275 ML IV ONE (11:15)
[2016-08-18] MEDS ORDERED: COLACE100 MG GT (11:27)
[2016-08-18] MEDS ORDERED: CRANBERRY450 M4 GT (11:27)
[2016-08-18] MEDS ORDERED: Cefepime 1gm vial ONE (11:29)
[2016-08-18 12:15] LABS: APPEARANCE,URINE SLIGHTLY CLOUDY; KETONES,URINE 1+ (NEGATIVE); LEUKOCYTE ESTERASE ,URINE 3+ (NEGATIVE); NITRITE,URINE NEGATIVE (NEGATIVE); PH,URINE 5 (4.5-8.0); PROTEIN,URINE 1+ (NEGATIVE); UROBILINOGEN,URINE 1 MG/DL (0.0-1.0)
[2016-08-18 12:23] LABS: BACTERIA,URINE MODERATE /HPF; SQUAMOUS EPITHELIAL CELL,UR OCCASIONAL /LPF (NONE/OCC); WBC,URINE 30-40 /HPF (0 - 0)
[2016-08-18 12:30] VITALS: BP 127/52
[2016-08-18 12:33] LABS: MEAN CORPUSCULAR HEMOGLOBIN 31.6 PG (27.0-31.0); MEAN CORPUSCULAR VOLUME 93 FL (80-99); MEAN PLATELET VOLUME 5.5 FL (6.5-10.1); PLATELET COUNT 127 K/UL (150-450); RED BLOOD COUNT 2.25 M/UL (4.70-6.10)
[2016-08-18 12:40] LABS: REFLEX LACTIC ACID YES OR NO YES
[2016-08-18 12:43] LABS: INR 1.3 (0.9-1.1); PROTHROMBIN TIME 13.5 SEC (9.30-11.50)
[2016-08-18 12:48] LABS: AMMONIA 68 umol/L (16-60)
[2016-08-18 12:49] LABS: ALANINE AMINOTRANSFERASE 9 U/L (3-41); ALBUMIN/GLOBULIN RATIO 0.4 (1.0-2.7); ASPARTATE AMINO TRANSFERASE 25 U/L (5-40); CALCIUM 7.9 mg/dL (8.6-10.2); CHLORIDE 84 mEQ/L (98-107); CREATININE 0.5 mg/dL (0.7-1.2); GLOMERULAR FILTRATION RATE > 60 mL/min (>60); LIPASE 22 U/L (< 60); POTASSIUM 4.3 mEQ/L (3.4-4.9); SODIUM 125 mEQ/L (135-145); TOTAL PROTEIN 6.6 g/dL (6.6-8.7); TROPONIN I < 0.30 ng/mL (<=0.30)
[2016-08-18 12:56] LABS: ANION GAP 19 (5-15); CARBON DIOXIDE 22 mEQ/L (20-30); HEMOLYSIS 17
[2016-08-18 13:47] LABS: ANISOCYTOSIS 1+; BAND NEUTROPHILS % (MANUAL) 0 % (0-8); BASOPHILS % (MANUAL) 0 % (0-2); EOSINOPHILS % (MANUAL) 2 % (0-3); HYPOCHROMASIA 1+; LYMPHOCYTES % (MANUAL) 4 % (20-45); NEUTROPHILS % (MANUAL) 88 % (45-75); PLATELET ESTIMATE DECREASED; PLATELET MORPHOLOGY NORMAL; TOTAL CELLS COUNTED 100
[2016-08-18 14:32] VITALS: BP 107/67
--- NOTE | 2016-08-18 15:10 | Diagnostic Imaging Report ---
Indication: Shortness of breath Technique: One view of the chest Comparison: 611.17 Findings: Again demonstrated is elevation of the right hemidiaphragm. Again demonstrated is a tracheostomy. Inspiration is suboptimal. Borderline interstitial congestion appears similar to the prior study. Heart size is normal Impression: Right interstitial congestion, appearing similar to prior study of 08/09/2016 Other findings as noted
--- NOTE | 2016-08-18 15:29 | Diagnostic Imaging Report ---
Indication: Abdominal distention Technique: Supine view of the abdomen Comparison: 07/11/2016 Findings: Again demonstrated is diffuse increased attenuation of the abdomen, loss of soft tissue detail, and central positioning of bowel loops, consistent with known history of ascites. Previously demonstrated gastrostomy tube is again visualized. Bowel loops are normal in caliber. Findings are unchanged Impression: Evidence of ascites, also previously described No other acute or significant abnormality
[2016-08-18] MEDS ORDERED: DuoNeb 0.5-3(2.5)mg/3ml neb HHN PRN (15:45)
[2016-08-18] MEDS ORDERED: Miralax 17gm pkt ORAL PRN (15:45)
[2016-08-18] MEDS ORDERED: Vancomycin 1gm inj IVPB ONE (15:48)
[2016-08-18 16:15] LABS: HEMOLYSIS 16; IRON 41 ug/dL (59-158); TOTAL IRON BINDING CAPACITY 144 ug/dL (250-400)
[2016-08-18] MEDS ORDERED: Lidocaine 1% Plain 30 ml INJ ONE (16:15)
[2016-08-18] MEDS ORDERED: Heparin 2000 units/Ns 1000ml IV ONE (16:15)
[2016-08-18 17:07] VITALS: BP 113/59
[2016-08-18 17:15] VITALS: BP 108/75
[2016-08-18] MEDS: Piperacillin/Tazobactam 3.375 GM in NS 110 ML IVPB SCH (18:00)
--- NOTE | 2016-08-18 19:27 | History and Physical ---
History of Present Illness General Date patient seen: Aug 19, 2016 Reason for Hospitalization: Altered Level of Consciousness Present Illness HPI 56 year old male with hx of chronic respiratory failure s/p trach/vent/peg, end stage liver disease, anasarca, recurrent hospitalization presented with respiratory difficulty and altered mentation. Pt has a large ascites, was anemic and admitted for further evaluation. Allergies: Coded Allergies: No Known Allergies (Unverified , 06/09/16) Medication History Scheduled Ascorbic Acid* (Vitamin C*), 500 MG GT DAILY, (Reported) Colistimethate Sodium (Colistin), 150 MG HHN BID Cran/Vitc/Mannose/Inulin/Brom (Uti-Stat Liquid), 3,875 MG GT DAILY, (Reported) Docusate Sodium* (Colace*), 100 MG GT DAILY, (Reported) Famotidine (Famotidine), 20 MG GT DAILY, (Reported) Ferrous Sulfate (Ferrous Sulfate), 7.5 ML GT DAILY, (Reported) Folic Acid* (Folic Acid*), 1 MG GT DAILY, (Reported) Furosemide* (Lasix*), 20 MG GT DAILY, (Reported) Furosemide* (Lasix*), 40 MG ORAL EVERY 12 HOURS Lactulose (Lactulose*), 30 ML GT QID, (Reported) Levetiracetam* (Levetiracetam*), 1,500 MG GT Q12HR, (Reported) Meropenem (Merrem), 1 GM IV Q8HR Multivitamin With Minerals (Multivitamins With Minerals*), 1 TAB GT DAILY, ( Reported) Propranolol Hcl* (Inderal*), 10 MG GT BID, (Reported) Vancomycin Hcl/D5w (Vancomycin-D5w 1 G/250 Ml), 1 GM IVPB Q24H Zinc Sulfate (Zinc Sulfate*), 220 MG GT DAILY, (Reported) Scheduled PRN Acetaminophen 160MG/5ML* (Acetaminophen*), 20 ML ORAL EVERY 4 HOURS PRN for For Pain, (Reported) Bisacodyl (Dulcolax), 10 MG RC DAILY PRN for Constipation, (Reported) Lorazepam* (Lorazepam*), 1 MG GT Q6HR PRN for For Anxiety, (Reported) Magnesium Hydroxide* (Milk Of Magnesia*), 30 ML GT QHS PRN for Constipation, ( Reported) Na Phos,M-B/Na Phos,Di-Ba* (Fleet Enema*), 133 ML RECTAL EVERY TWO DAYS PRN for Constipation, (Reported) Naproxen Sodium (Naproxen Sodium), 220 MG GT PRN PRN for For Pain, (Reported) Miscellaneous Medications Cranberry Fruit Concentrate (Cranberry), 450 MG GT, (Reported) Patient History Healthcare decision maker Raghavendra Ramirez Resuscitation status Full Code Advanced Directive on File Per Raghavendra Bryant, ER is going to [facility] to get POA file Past Medical/Surgical History Past Medical/Surgical History: (1) Ascites (2) Decubitus ulcer (3) hep c (4) Liver cirrhosis (5) Chronic respiratory failure Review of Systems All Other Systems: negative except mentioned in HPI Physical Exam General Appearance: cachetic Lines, tubes and drains: peripheral HEENT: normocephalic, atraumatic Neck: non-tender, normal alignment Respiratory/Chest: rhonchi - left, rhonchi - right Cardiovascular/Chest: normal peripheral pulses, normal rate Abdomen: distended Extremities: moderate edema Last 24 Hour Vital Signs Date Time Temp Pulse Resp B/P Pulse Ox O2 Delivery O2 Flow Rate FiO2 08/18/16 19:13 82 16 50 08/18/16 17:22 95 21 50 08/18/16 17:15 96.6 87 20 108/75 98 Mechanical Ventilator 35 08/18/16 17:07 84 18 113/59 98 Mechanical Ventilator 08/18/16 15:34 70 16 110/70 99 08/18/16 14:45 93 20 50 08/18/16 14:32 96.7 74 16 107/67 100 Mechanical Ventilator 08/18/16 12:45 103 28 50 08/18/16 12:30 98.6 79 16 127/52 99 Mechanical Ventilator 08/18/16 11:14 88 19 50 08/18/16 11:14 88 19 Mechanical Ventilator 50 08/18/16 11:10 98.4 88 16 124/78 99 Mechanical Ventilator Laboratory Tests Test 08/18/16 11:20 08/18/16 11:30 Urine Color Yellow Urine Appearance Slightly cloudy Urine pH 5 (4.5-8.0) Urine Specific [place] 1.015 (1.005-1.035) Urine Protein 1+ (NEGATIVE) H Urine Glucose (UA) Negative (NEGATIVE) Urine Ketones 1+ (NEGATIVE) H Urine Occult Blood 5+ (NEGATIVE) H Urine Nitrite Negative (NEGATIVE) Urine Bilirubin Negative (NEGATIVE) Urine Urobilinogen 1 MG/DL (0.0-1.0) H Urine Leukocyte Esterase 3+ (NEGATIVE) H Urine RBC 10-15 /HPF (0 - 0) H Urine WBC 30-40 /HPF (0 - 0) H Urine Squamous Epithelial Cells Occasional /LPF Urine Bacteria Moderate /HPF (NONE) H White Blood Count 7.0 K/UL (4.8-10.8) Red Blood Count 2.25 M/UL (4.70-6.10) L Hemoglobin 7.1 G/DL (14.2-18.0) L Hematocrit 20.9 % (42.0-52.0) L Mean Corpuscular Volume 93 FL (80-99) Mean Corpuscular Hemoglobin 31.6 PG (27.0-31.0) H Mean Corpuscular Hemoglobin Concent 34.0 G/DL (32.0-36.0) Red Cell Distribution Width 18.0 % (11.6-14.8) H Platelet Count 127 K/UL (150-450) L Mean Platelet Volume 5.5 FL (6.5-10.1) L Neutrophils (%) (Auto) % (45.0-75.0) Lymphocytes (%) (Auto) % (20.0-45.0) Monocytes (%) (Auto) % (1.0-10.0) Eosinophils (%) (Auto) % (0.0-3.0) Basophils (%) (Auto) % (0.0-2.0) Differential Total Cells Counted 100 Neutrophils % (Manual) 88 % (45-75) H Lymphocytes % (Manual) 4 % (20-45) L Monocytes % (Manual) 6 % (1-10) Eosinophils % (Manual) 2 % (0-3) Basophils % (Manual) 0 % (0-2) Band Neutrophils 0 % (0-8) Platelet Estimate Decreased L Platelet Morphology Normal Hypochromasia 1+ Anisocytosis 1+ Prothrombin Time 13.5 SEC (9.30-11.50) H Prothromb Time International Ratio 1.3 (0.9-1.1) H Activated Partial Thromboplast Time 31 SEC (23-33) Sodium Level 125 mEQ/L (135-145) L Potassium Level 4.3 mEQ/L (3.4-4.9) Chloride Level 84 mEQ/L (98-107) L Carbon Dioxide Level 22 mEQ/L (20-30) Anion Gap 19 (5-15) H Blood Urea Nitrogen 34 mg/dL (7-23) H Creatinine 0.5 mg/dL (0.7-1.2) L Estimat Glomerular Filtration Rate > 60 mL/min (>60) Glucose Level 113 mg/dL (74-106) H Lactic Acid Level 3.00 mmol/L (0.66-2.22) H Calcium Level 7.9 mg/dL (8.6-10.2) L Iron Level 41 ug/dL (59-158) L Total Iron Binding Capacity 144 ug/dL (250-400) L Percent Iron Saturation 28 % (15-50) Unsaturated Iron Binding 103 ug/dL (112-346) L Total Bilirubin 0.9 mg/dL (0.0-1.2) Aspartate Amino Transf (AST/SGOT) 25 U/L (5-40) Alanine Aminotransferase (ALT/SGPT) 9 U/L (3-41) Alkaline Phosphatase 209 U/L (40-129) H Ammonia 68 umol/L (16-60) H Total Creatine Kinase 19 U/L (38-174) L Troponin I < 0.30 ng/mL (<=0.30) Pro-B-Type Natriuretic Peptide 519 pg/mL (0-125) H Total Protein 6.6 g/dL (6.6-8.7) Albumin 2.0 g/dL (3.5-5.2) L Globulin 4.6 g/dL Albumin/Globulin Ratio 0.4 (1.0-2.7) L Lipase 22 U/L (< 60) Height (Feet): 5 Height (Inches): 8.00 Weight (Pounds): 160 Medications Current Medications Medications (Trade) Dose Ordered Sig/Hair Route PRN Reason Start Time Stop Time Status Last Admin Dose Admin Acetaminophen 650 mg 650 mg Q4H PRN ORAL FEVER 08/18/16 15:45 09/17/16 15:44 Albuterol/ Ipratropium 3 ml 3 ml EVERY 4 HOURS PRN HHN Shortness of Breath 08/18/16 15:45 08/23/16 15:44 Dextrose (Dextrose 50%) STAT PRN IV Hypoglycemia 08/18/16 15:45 09/17/16 15:44 Furosemide (Lasix) 20 mg DAILY GT 08/19/16 09:00 09/18/16 08:59 Levetiracetam 1500 mg 1,500 mg Q12HR GT 08/18/16 21:00 09/17/16 20:59 Lorazepam (Ativan 2mg/ml 1ml) 2 mg EVERY 2 HOURS PRN IV For Anxiety 08/18/16 15:45 08/25/16 15:44 Morphine Sulfate (Morphine Sulfate) 4 mg EVERY 4 HOURS PRN IVP Severe Pain (Pain Scale 7-10) 08/18/16 15:45 08/25/16 15:44 Ondansetron HCl (Zofran) 4 mg Q6H PRN IVP Nausea & Vomiting 08/18/16 15:45 09/17/16 15:44 Piperacillin Sod/ Tazobactam Sod/ Sodium Chloride (Zosyn/Sodium Chloride) 110 ml @ 27.5 mls/hr Q8HR@0400,1200,1800 IVPB 08/18/16 18:00 08/25/16 17:59 08/18/16 18:00 Polyethylene Glycol (Miralax) 17 gm DAILYPRN PRN ORAL Constipation 08/18/16 15:45 09/17/16 15:44 Sodium Chloride (0.45% NS 1000ml) 1,000 ml @ 75 mls/hr [id number] IV 08/18/16 17:00 09/17/16 16:59 08/18/16 18:30 Vancomycin HCl/ Dextrose (Vancomycin/D5W) 275 ml @ 183.3 mls/ hr Q12HR@1000,2200 IVPB 08/18/16 22:00 08/23/16 21:59 Vitamin A/Vitamin D (A & D Oint) 1 applic EVERY 12 HOURS TOPIC 08/18/16 21:00 09/17/16 20:59 Assessment/Plan Problem List: (1) Altered level of consciousness ICD Codes: R40.4 - Transient alteration of awareness SNOMED: 5889289 (2) Sepsis ICD Codes: A41.9 - Sepsis, unspecified organism SNOMED: 77189890 Qualifiers: Qualified Codes: A41.9 - Sepsis, unspecified organism (3) Liver cirrhosis ICD Codes: K74.60 - Unspecified cirrhosis of liver SNOMED: 99024608 (4) Feeding by G-tube ICD Codes: Z93.1 - Gastrostomy status SNOMED: 308056841, 700405467 (5) hep c (6) Ascites ICD Codes: R18.8 - Other ascites SNOMED: 034938318 Qualifiers: Qualified Codes: R18.8 - Other ascites Respiratory: monitor respiratory rate, adjust FIO2 Cardiac: continue to monitor HR/BP Renal: F/U I&O, keep IV fluid, check electrolytes Infectious Disease: check cultures Gastrointestinal: hold feedings Endocrine: monitor blood sugar, check TSH, continue sliding scale insulin Hematologic: transfuse if hgb<8.5 Neurologic: PRN Ativan, PRN Morphine, keep patient comfortable Affect: PRN ativan Notes Reviewed: renal Discussed with: nurses, consultants, director case management DANTE HSIEH Aug 18, 2016 19:27
[2016-08-18 20:00] VITALS: BP 93/56
[2016-08-18] MEDS: levETIRAcetam 500mg/5ml Liquid GT SCH (21:00)
[2016-08-18] MEDS: Vitamin A&D Oint 2oz Tube TOPIC SCH (21:00)
[2016-08-18] MEDS ORDERED: Vitamin A&D Oint 2oz Tube TOPIC SCH (21:00)
[2016-08-18] MEDS: Vancomycin 1.25 GM in D5W 275 ML IVPB SCH (23:41)
[2016-08-19] VITALS: BP 100/78
[2016-08-19 04:00] VITALS: BP 121/67
[2016-08-19] MEDS: Piperacillin/Tazobactam 3.375 GM in NS 110 ML IVPB SCH ×3 (05:10→18:00)
[2016-08-19 05:37] LABS: MEAN CORPUSCULAR HEMOGLOBIN 32.6 PG (27.0-31.0); MEAN CORPUSCULAR HGB CONC 34.5 G/DL (32.0-36.0); MEAN CORPUSCULAR VOLUME 95 FL (80-99); MEAN PLATELET VOLUME 5.7 FL (6.5-10.1); PLATELET COUNT 117 K/UL (150-450); RED BLOOD COUNT 2.08 M/UL (4.70-6.10); RED CELL DISTRIBUTION WIDTH 18.2 % (11.6-14.8); WHITE BLOOD COUNT 5.9 K/UL (4.8-10.8)
[2016-08-19 06:09] LABS: ANION GAP 15 (5-15); CALCIUM 7.9 mg/dL (8.6-10.2); CARBON DIOXIDE 24 mEQ/L (20-30); CHLORIDE 89 mEQ/L (98-107); CREATININE 0.5 mg/dL (0.7-1.2); GLOMERULAR FILTRATION RATE > 60 mL/min (>60); HEMOLYSIS 4; PHOSPHORUS 5.5 mg/dL (2.5-4.8); POTASSIUM 4.3 mEQ/L (3.4-4.9); SODIUM 128 mEQ/L (135-145)
[2016-08-19 07:55] LABS: BASOPHILS % (MANUAL) 2 % (0-2); EOSINOPHILS % (MANUAL) 5 % (0-3); LYMPHOCYTES % (MANUAL) 10 % (20-45); NEUTROPHILS % (MANUAL) 76 % (45-75); TOTAL CELLS COUNTED 100
[2016-08-19 07:56] LABS: ANISOCYTOSIS 2+; BAND NEUTROPHILS % (MANUAL) 0 % (0-8); HYPOCHROMASIA 4+; PLATELET ESTIMATE DECREASED; PLATELET MORPHOLOGY NORMAL; SPHEROCYTES 2+
[2016-08-19 08:00] VITALS: BP 108/61
[2016-08-19] MEDS: Vitamin A&D Oint 2oz Tube TOPIC SCH ×5 (08:18→22:33)
[2016-08-19] MEDS: levETIRAcetam 500mg/5ml Liquid GT SCH ×2 (08:18→20:54)
[2016-08-19] MEDS: Vancomycin 1.25 GM in D5W 275 ML IVPB SCH ×2 (10:00→21:01)
--- NOTE | 2016-08-19 10:39 | GI Initial Consult Note ---
History of Present Illness General Date patient seen: Aug 19, 2016 Time patient seen: 10:38 Reason for Hospitalization: Altered Level of Consciousness Referring physician: DANTE HSIEH Reason for Consultation: ANEMIA Present Illness HPI Patient presents with respiratory difficulty and altered mentation. Usually apparently responds to interactions, but non-verbal due to trach. H/O hep c and ascites. Paramedics state had normal glucose in field. GI CONSULT: HPI as noted above. GI consulted for anemia. Pt recently discharged a month ago from [facility] s/p EGD with esophageal varices banding x 4 , see full report below. Pt presents today with anemia with Hgb 6.8 pending blood transfusion, abnormal LFTs, elevated ammonia and hypoalbuminemia. DATE OF PROCEDURE: 07/14/2016 SURGEON: Anthony Arndt M.D. PROCEDURE: Upper endoscopy with biopsy and banding of the esophageal varices. SUMMARY OF FINDINGS: 1. Status post banding of esophageal varices. 2. Portal hypertensive gastropathy. 3. G-tube in place. Home Meds Active Scripts Furosemide* (LASIX*) 40 Mg Tablet, 40 MG ORAL EVERY 12 HOURS for 30 Days, TAB Prov:DANTE HSIEH 08/11/16 Colistimethate Sodium (Colistin) 150 Mg Vial, 150 MG HHN BID for 14 Days, VIAL Prov:SHARRI RAMÍREZ M.D. 07/14/16 Meropenem (Merrem) 1 Gm Vial, 1 GM IV Q8HR for 14 Days, VIAL Prov:SHARRI RAMÍREZ M.D. 07/14/16 Vancomycin Hcl/D5w (VANCOMYCIN-D5W 1 G/250 ML) 1 Gm/250 Ml Plast..bag, 1 GM IVPB Q24H for 10 Days, BAG Prov:DANTE HSIEH 07/13/16 Reported Medications Docusate Sodium* (COLACE*) 100 Mg Capsule, 100 MG GT DAILY, CAP 08/18/16 Cranberry Fruit Concentrate (CRANBERRY) 450 Mg Capsule, 450 MG GT, CAP 08/18/16 Ferrous Sulfate (Ferrous Sulfate) 300 Mg/5 Ml Liquid, 7.5 ML GT DAILY 07/20/16 Lorazepam* (LORAZEPAM*) 1 Mg Tablet, 1 MG GT Q6HR Y for For Anxiety 07/20/16 Naproxen Sodium (NAPROXEN SODIUM) 220 Mg Tablet, 220 MG GT PRN Y for For Pain 07/20/16 Magnesium Hydroxide* (MILK OF MAGNESIA*) 400 Mg/5 Ml Oral.susp, 30 ML GT QHS Y for Constipation 07/20/16 Levetiracetam* (LEVETIRACETAM*) 100 Mg/1 Ml Solution, 1500 MG GT Q12HR 07/09/16 Multivitamin With Minerals (MULTIVITAMINS WITH MINERALS*) 1 Each Tablet, 1 TAB GT DAILY 07/09/16 Furosemide* (LASIX*) 20 Mg Tablet, 20 MG GT DAILY 07/09/16 Folic Acid* (FOLIC ACID*) 1 Mg Tablet, 1 MG GT DAILY 07/09/16 Famotidine (FAMOTIDINE) 20 Mg Tablet, 20 MG GT DAILY, 0 Refills 07/09/16 Na Phos,M-B/Na Phos,Di-Ba* (FLEET ENEMA*) 133 Ml Enema, 133 ML RECTAL EVERY TWO DAYS Y for Constipation, ML 0 Refills 05/24/16 Bisacodyl (DULCOLAX) 10 Mg Supp.rect, 10 MG RC DAILY Y for Constipation, SUPP 05/24/16 Acetaminophen 160MG/5ML* (ACETAMINOPHEN*) 160 Mg/5 Ml Elixir, 20 ML ORAL EVERY 4 HOURS Y for For Pain, ML 05/24/16 Cran/Vitc/Mannose/Inulin/Brom (UTI-STAT LIQUID) 3,875 Mg/30 Ml Liquid, 3875 MG GT DAILY, ML 05/24/16 Ascorbic Acid* (VITAMIN C*) 500 Mg Tablet, 500 MG GT DAILY, #30 TAB 0 Refills 05/24/16 Zinc Sulfate (ZINC SULFATE*) 220 Mg Capsule, 220 MG GT DAILY, CAP 0 Refills 05/24/16 Propranolol Hcl* (INDERAL*) 10 Mg Tablet, 10 MG GT BID, #90 TAB 0 Refills 05/24/16 Lactulose (LACTULOSE*) 20 Gm/30 Ml Solution, 30 ML GT QID, ML 0 Refills 05/24/16 Med list reviewed/reconciled: Yes Allergies: Coded Allergies: No Known Allergies (Unverified , 06/09/16) Patient History Limited by: medical condition History Provided By: Medical Record PMH Narrative 1. Recurrent ascites. Status post paracentesis with no evidence of supraventricular tachycardia. 2. Recurrent hospital and community-acquired pneumonia/Ventilator-associated pneumonia >> Chronic respiratory failure. 3. Recurrent urinary tract infection. 4. Liver cirrhosis. 5. Elevated liver function tests. 6. Hepatitis C virus. 7. Stage IV sacral decubitus ulcer, present on admission. 8. Chronic liver disease with cirrhosis and 9. Feeding via gastrostomy tube. 10. Thrombocytopenia. 11. Elevated alkaline phosphatase. Review of Systems All Other Systems: limited Physical Exam Vital Signs Date Time Temp Pulse Resp B/P Pulse Ox O2 Delivery O2 Flow Rate FiO2 08/18/16 11:10 98.4 88 16 124/78 99 Mechanical Ventilator 08/18/16 11:14 50 Sp02 EP Interpretation: reviewed Labs Laboratory Tests Test 08/18/16 11:20 08/18/16 11:30 08/19/16 04:15 Urine Color Yellow Urine Appearance Slightly cloudy Urine pH 5 (4.5-8.0) Urine Specific [place] 1.015 (1.005-1.035) Urine Protein 1+ (NEGATIVE) H Urine Glucose (UA) Negative (NEGATIVE) Urine Ketones 1+ (NEGATIVE) H Urine Occult Blood 5+ (NEGATIVE) H Urine Nitrite Negative (NEGATIVE) Urine Bilirubin Negative (NEGATIVE) Urine Urobilinogen 1 MG/DL (0.0-1.0) H Urine Leukocyte Esterase 3+ (NEGATIVE) H Urine RBC 10-15 /HPF (0 - 0) H Urine WBC 30-40 /HPF (0 - 0) H Urine Squamous Epithelial Cells Occasional /LPF Urine Bacteria Moderate /HPF (NONE) H White Blood Count 7.0 K/UL (4.8-10.8) 5.9 K/UL (4.8-10.8) Red Blood Count 2.25 M/UL (4.70-6.10) L 2.08 M/UL (4.70-6.10) L Hemoglobin 7.1 G/DL (14.2-18.0) L 6.8 G/DL (14.2-18.0) *L Hematocrit 20.9 % (42.0-52.0) L 19.6 % (42.0-52.0) L Mean Corpuscular Volume 93 FL (80-99) 95 FL (80-99) Mean Corpuscular Hemoglobin 31.6 PG (27.0-31.0) H 32.6 PG (27.0-31.0) H Mean Corpuscular Hemoglobin Concent 34.0 G/DL (32.0-36.0) 34.5 G/DL (32.0-36.0) Red Cell Distribution Width 18.0 % (11.6-14.8) H 18.2 % (11.6-14.8) H Platelet Count 127 K/UL (150-450) L 117 K/UL (150-450) L Mean Platelet Volume 5.5 FL (6.5-10.1) L 5.7 FL (6.5-10.1) L Neutrophils (%) (Auto) % (45.0-75.0) % (45.0-75.0) Lymphocytes (%) (Auto) % (20.0-45.0) % (20.0-45.0) Monocytes (%) (Auto) % (1.0-10.0) % (1.0-10.0) Eosinophils (%) (Auto) % (0.0-3.0) % (0.0-3.0) Basophils (%) (Auto) % (0.0-2.0) % (0.0-2.0) Differential Total Cells Counted 100 100 Neutrophils % (Manual) 88 % (45-75) H 76 % (45-75) H Lymphocytes % (Manual) 4 % (20-45) L 10 % (20-45) L Monocytes % (Manual) 6 % (1-10) 7 % (1-10) Eosinophils % (Manual) 2 % (0-3) 5 % (0-3) H Basophils % (Manual) 0 % (0-2) 2 % (0-2) Band Neutrophils 0 % (0-8) 0 % (0-8) Platelet Estimate Decreased L Decreased L Platelet Morphology Normal Normal Hypochromasia 1+ 4+ Anisocytosis 1+ 2+ Prothrombin Time 13.5 SEC (9.30-11.50) H Prothromb Time International Ratio 1.3 (0.9-1.1) H Activated Partial Thromboplast Time 31 SEC (23-33) Sodium Level 125 mEQ/L (135-145) L 128 mEQ/L (135-145) L Potassium Level 4.3 mEQ/L (3.4-4.9) 4.3 mEQ/L (3.4-4.9) Chloride Level 84 mEQ/L (98-107) L 89 mEQ/L (98-107) L Carbon Dioxide Level 22 mEQ/L (20-30) 24 mEQ/L (20-30) Anion Gap 19 (5-15) H 15 (5-15) Blood Urea Nitrogen 34 mg/dL (7-23) H 29 mg/dL (7-23) H Creatinine 0.5 mg/dL (0.7-1.2) L 0.5 mg/dL (0.7-1.2) L Estimat Glomerular Filtration Rate > 60 mL/min (>60) > 60 mL/min (>60) Glucose Level 113 mg/dL (74-106) H 92 mg/dL (74-106) Lactic Acid Level 3.00 mmol/L (0.66-2.22) H Calcium Level 7.9 mg/dL (8.6-10.2) L 7.9 mg/dL (8.6-10.2) L Iron Level 41 ug/dL (59-158) L Total Iron Binding Capacity 144 ug/dL (250-400) L Percent Iron Saturation 28 % (15-50) Unsaturated Iron Binding 103 ug/dL (112-346) L Total Bilirubin 0.9 mg/dL (0.0-1.2) Aspartate Amino Transf (AST/SGOT) 25 U/L (5-40) Alanine Aminotransferase (ALT/SGPT) 9 U/L (3-41) Alkaline Phosphatase 209 U/L (40-129) H Ammonia 68 umol/L (16-60) H Total Creatine Kinase 19 U/L (38-174) L Troponin I < 0.30 ng/mL (<=0.30) Pro-B-Type Natriuretic Peptide 519 pg/mL (0-125) H Total Protein 6.6 g/dL (6.6-8.7) Albumin 2.0 g/dL (3.5-5.2) L 1.6 g/dL (3.5-5.2) L Globulin 4.6 g/dL Albumin/Globulin Ratio 0.4 (1.0-2.7) L Lipase 22 U/L (< 60) Spherocytes 2+ Phosphorus Level 5.5 mg/dL (2.5-4.8) H General Appearance: no apparent distress Head: normocephalic EENT: normal ENT inspection Neck: supple Respiratory: other - mech vent Cardiovascular: normal rate Gastrointestinal: gt - c/d/i Neurologic: alert Skin: normal color Lymphatic: normal inspection, no adenopathy Current Medications Current Medications Medications (Trade) Dose Ordered Sig/Hair Route PRN Reason Start Time Stop Time Status Last Admin Dose Admin Acetaminophen 650 mg 650 mg Q4H PRN ORAL FEVER 08/18/16 15:45 09/17/16 15:44 Albuterol/ Ipratropium 3 ml 3 ml EVERY 4 HOURS PRN HHN Shortness of Breath 08/18/16 15:45 08/23/16 15:44 Dextrose (Dextrose 50%) STAT PRN IV Hypoglycemia 08/18/16 15:45 09/17/16 15:44 Furosemide (Lasix) 20 mg DAILY GT 08/19/16 09:00 09/18/16 08:59 08/19/16 08:19 Levetiracetam 1500 mg 1,500 mg Q12HR GT 08/18/16 21:00 09/17/16 20:59 08/19/16 08:18 Lorazepam (Ativan 2mg/ml 1ml) 2 mg EVERY 2 HOURS PRN IV For Anxiety 08/18/16 15:45 08/25/16 15:44 Morphine Sulfate (Morphine Sulfate) 4 mg EVERY 4 HOURS PRN IVP Severe Pain (Pain Scale 7-10) 08/18/16 15:45 08/25/16 15:44 Ondansetron HCl (Zofran) 4 mg Q6H PRN IVP Nausea & Vomiting 08/18/16 15:45 09/17/16 15:44 Piperacillin Sod/ Tazobactam Sod/ Sodium Chloride (Zosyn/Sodium Chloride) 110 ml @ 27.5 mls/hr Q8HR@0400,1200,1800 IVPB 08/18/16 18:00 08/25/16 17:59 08/19/16 05:10 Polyethylene Glycol (Miralax) 17 gm DAILYPRN PRN ORAL Constipation 08/18/16 15:45 09/17/16 15:44 Sodium Chloride (0.45% NS 1000ml) 1,000 ml @ 75 mls/hr [id number] IV 08/18/16 17:00 7/20/17 16:59 08/18/16 18:30 Vancomycin HCl/ Dextrose (Vancomycin/D5W) 275 ml @ 183.3 mls/ hr Q12HR@1000,2200 IVPB 08/18/16 22:00 08/23/16 21:59 08/18/16 23:41 Vitamin A/Vitamin D (A & D Oint) 1 applic EVERY 12 HOURS TOPIC 08/18/16 21:00 09/17/16 20:59 08/19/16 08:18 GI: Plan Problems: (1) Ascites (2) Anemia (3) Feeding by G-tube (4) hep c (5) Liver cirrhosis (6) Esophageal varices determined by endoscopy (7) Anemia due to blood loss, acute Plan ASSESSMENT AND PLAN: 1. Anemia. 2. Cirrhosis. 3. Hepatitis C. 4. Dysphagia with gastrostomy tube. 5. Encephalopathy. 6. Thrombocytopenia. 7. Esophageal varices requiring banding. 8. Ascites. 9. Respiratory failure. hold GI procedures for now stool OB r/o GI bleed monitor H&H, transfuse prn >> pending 1 unit today cont lactulose + Xifaxan GTF per dietary PPI BID fu labs Discussed with Dr. Arndt. Thank you for referring this patient, we will follow. DATE OF PROCEDURE: 07/14/2016 SURGEON: Anthony Arndt M.D. PROCEDURE: Upper endoscopy with biopsy and banding of the esophageal varices. SUMMARY OF FINDINGS: 1. Status post banding of esophageal varices. 2. Portal hypertensive gastropathy. 3. G-tube in place. Paulette Romero N.P. Aug 19, 2016 10:39
--- NOTE | 2016-08-19 10:41 | Wound Care Consultation ---
Wound Assessment Wound Assessment #1: Wound Number: #1 Wound Present on Admission: Yes New Wound: No Status Change of Wound: No Wound Location Body Site: perianal Wound Type: chemical burn - with erosion Marlin Test: Does not Marlin Wound Thickness: Partial Thickness Percent of Wound [place]/Red: 100 Wound Drainage Amount: None Wound Drainage Odor: None/Absent Tissue Surrounding Wound: Macerated Wound General Appearance: Reddened, Open to air Wound Assessment #2: Wound Number: #2 Wound Present on Admission: Yes New Wound: No Status Change of Wound: No Wound Location Body Site Modif: left Wound Location Body Site: heel Wound Type: pressure ulcer Marlin Test: Does not Marlin Pressure Ulcer Stage: I Wound Length: 3.0 Wound Width: 3.0 Percent of Wound [place]/Red: 100 Wound Drainage Amount: None Wound Drainage Odor: None/Absent Tissue Surrounding Wound: Intact Wound General Appearance: Reddened, Open to air Wound Assessment #3: Wound Number: #3 Wound Present on Admission: Yes New Wound: No Status Change of Wound: No Wound Location Body Site Modif: right Wound Location Body Site: heel Wound Type: pressure ulcer Marlin Test: Does not Marlin Pressure Ulcer Stage: I Wound Length: 3.0 Wound Width: 3.0 Percent of Wound [place]/Red: 100 Wound Drainage Amount: None Wound Drainage Odor: None/Absent Tissue Surrounding Wound: Intact Wound General Appearance: Reddened, Open to air Wound Assessment #4: Wound Number: #4 Wound Present on Admission: Yes New Wound: No Status Change of Wound: No Wound Location Body Site Modif: mid Wound Location Body Site: sacral Wound Type: pressure ulcer Mralin Test: Does not Marlin Pressure Ulcer Stage: IV/unstageable Wound Thickness: Full Thickness Wound Length: 6.0 Wound Width: 5.5 Wound Depth: 3.0 Percent of Wound [place]/Red: 50 Percent of Wound Purple/Maroon: 50 Other Colors Identified: noted full thickness scar tissue to surrounding tissue. Wound Drainage Description: Serosanguineous Wound Drainage Amount: Copious Wound Drainage Odor: None/Absent Tissue Surrounding Wound: Macerated Wound Undermining at 12:00: 3.0 Wound Undermining at 3:00: 2.5 Wound Undermining at 6:00: 1.0 Wound Undermining at 9:00: 3.0 Wound General Appearance: Reddened - maroon, Bleeding - minimal, Draining, Muscle Visible Wound Assessment #5: Wound Number: #5 Wound Present on Admission: Yes New Wound: No Status Change of Wound: No Wound Location Body Site Modif: right Wound Location Body Site: ischial tuberosity Wound Type: pressure ulcer Marlin Test: Does not Marlin Pressure Ulcer Stage: II Wound Thickness: Partial Thickness Wound Length: 1.0 Wound Width: 1.0 Wound Depth: 0.1 Percent of Wound [place]/Red: 100 Wound Drainage Description: Serosanguineous Wound Drainage Amount: Scant Wound Drainage Odor: None/Absent Tissue Surrounding Wound: Macerated Wound General Appearance: Reddened Wound Comment #1 Perianal chemical burn with erosion. #2 Left heel stage I pressure ulcer. #3 Right heel stage I pressure ulcer. #4 Sacral pressure ulcer stage IV. #5 Right ischial tuberosity stage II pressure ulcer. #6 left and right feet dry scaly skin. Recommendation. - Local wound care as ordered. - Apply low air loss overlay p200. - Turn and reposition. - Keep clean and dry. -Optimize nutrition. -Offload affected pressure sites. -Avoid shear and friction. -Heel protectors. -Offload heels and feet. -Assess and notify MD for any further changes of condition noted to skin. LATOYA VAN Aug 19, 2016 10:41
--- NOTE | 2016-08-19 10:47 | Pre-Procedure Note/Attestation ---
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 I attest that, if there was a reasonable possibility of needing a blood transfusion, the patient (or the patient's legal sales promotion representative) was given the [facility] standardized written summary, pursuant to the [employer] [employer] Blood Safety Act ([place] Health and Safety Code # 1645, as amended). I attest that I re-evaluated the patient just prior to the surgery and that there has been no change in the patient's H&P, except as documented below: Discussed by phone with patient's son at [id number] BONNY OATES M.D. Aug 19, 2016 10:47
--- NOTE | 2016-08-19 11:18 | Pulmonology Progress Note ---
Assessment/Plan Problems: (1) Altered level of consciousness (2) Sepsis (3) Liver cirrhosis (4) Feeding by G-tube (5) hep c (6) Ascites Assessment/Plan paracentesis check ammonia level, españa cultures gtube feeding dvt prophylaxis social service consult for end of life meeting with family. Subjective ROS Limited/Unobtainable: No Constitutional: Reports: no symptoms HEENT: Repors: no symptoms Respiratory: Reports: no symptoms Allergies: Coded Allergies: No Known Allergies (Unverified , 06/09/16) Objective Last 24 Hour Vital Signs Date Time Temp Pulse Resp B/P Pulse Ox O2 Delivery O2 Flow Rate FiO2 08/19/16 10:35 82 15 50 08/19/16 09:15 89 21 50 08/19/16 08:00 97.3 85 19 108/61 100 Mechanical Ventilator 08/19/16 06:58 88 21 50 08/19/16 05:20 82 17 50 08/19/16 04:00 97.8 91 12 121/67 100 Trach Collar 08/19/16 04:00 88 08/19/16 03:07 89 16 50 08/19/16 01:14 81 17 50 08/19/16 00:00 97.7 86 12 100/78 100 Trach Collar 08/19/16 00:00 78 08/18/16 23:18 85 18 50 08/18/16 21:12 85 16 50 08/18/16 20:00 78 08/18/16 20:00 97.5 86 14 93/56 96 Mechanical Ventilator 35 08/18/16 19:13 82 16 50 08/18/16 17:22 95 21 50 08/18/16 17:15 96.6 87 20 108/75 98 Mechanical Ventilator 35 08/18/16 17:07 84 18 113/59 98 Mechanical Ventilator 08/18/16 15:34 70 16 110/70 99 08/18/16 14:45 93 20 50 08/18/16 14:32 96.7 74 16 107/67 100 Mechanical Ventilator 08/18/16 12:45 103 28 50 08/18/16 12:30 98.6 79 16 127/52 99 Mechanical Ventilator Intake and Output 08/18/16 08/19/16 19:00 07:00 Intake Total 0 ml Output Total 30 ml 1000 ml Balance -30 ml -1000 ml Intake Oral 0 ml Output Urine Total 30 ml 1000 ml # Bowel Movements 1 General Appearance: cachetic HEENT: normocephalic, atraumatic Respiratory/Chest: chest wall non-tender, accessory muscle use, crackles/rales Cardiovascular: normal peripheral pulses, normal rate Abdomen: distended Genitourinary: normal external genitalia Extremities: no cyanosis Skin: no rash, no lesions, no ulcers Laboratory Tests 08/18/16 11:20: Urine Color Yellow, Urine Appearance Slightly cloudy, Urine pH 5, Urine Specific Gray 1.015, Urine Protein 1+H, Urine Glucose (UA) Negative, Urine Ketones 1+H, Urine Occult Blood 5+H, Urine Nitrite Negative, Urine Bilirubin Negative, Urine Urobilinogen 1H, Urine Leukocyte Esterase 3+H, Urine RBC 10-15H , Urine WBC 30-40H, Urine Squamous Epithelial Cells Occasional, Urine Bacteria ModerateH 08/18/16 11:30: White Blood Count 7.0, Red Blood Count 2.25L, Hemoglobin 7.1L, Hematocrit 20.9L , Mean Corpuscular Volume 93, Mean Corpuscular Hemoglobin 31.6H, Mean Corpuscular Hemoglobin Concent 34.0, Red Cell Distribution Width 18.0H, Platelet Count 127L, Mean Platelet Volume 5.5L, Neutrophils (%) (Auto) , Lymphocytes (%) (Auto) , Monocytes (%) (Auto) , Eosinophils (%) (Auto) , Basophils (%) (Auto) , Differential Total Cells Counted 100, Neutrophils % ( Manual) 88H, Lymphocytes % (Manual) 4L, Monocytes % (Manual) 6, Eosinophils % ( Manual) 2, Basophils % (Manual) 0, Band Neutrophils 0, Platelet Estimate DecreasedL, Platelet Morphology Normal, Hypochromasia 1+, Anisocytosis 1+, Prothrombin Time 13.5H, Prothromb Time International Ratio 1.3H, Activated Partial Thromboplast Time 31, Sodium Level 125L, Potassium Level 4.3, Chloride Level 84L, Carbon Dioxide Level 22, Anion Gap 19H, Blood Urea Nitrogen 34H, Creatinine 0.5L, Estimat Glomerular Filtration Rate > 60, Glucose Level 113H, Lactic Acid Level 3.00H, Calcium Level 7.9L, Iron Level 41L, Total Iron Binding Capacity 144L, Percent Iron Saturation 28, Unsaturated Iron Binding 103L, Total Bilirubin 0.9, Aspartate Amino Transf (AST/SGOT) 25, Alanine Aminotransferase ( ALT/SGPT) 9, Alkaline Phosphatase 209H, Ammonia 68H, Total Creatine Kinase 19L, Troponin I < 0.30, Pro-B-Type Natriuretic Peptide 519H, Total Protein 6.6, Albumin 2.0L, Globulin 4.6, Albumin/Globulin Ratio 0.4L, Lipase 22 08/19/16 04:15: White Blood Count 5.9, Red Blood Count 2.08L, Hemoglobin 6.8*L, Hematocrit 19.6L , Mean Corpuscular Volume 95, Mean Corpuscular Hemoglobin 32.6H, Mean Corpuscular Hemoglobin Concent 34.5, Red Cell Distribution Width 18.2H, Platelet Count 117L, Mean Platelet Volume 5.7L, Neutrophils (%) (Auto) , Lymphocytes (%) (Auto) , Monocytes (%) (Auto) , Eosinophils (%) (Auto) , Basophils (%) (Auto) , Differential Total Cells Counted 100, Neutrophils % ( Manual) 76H, Lymphocytes % (Manual) 10L, Monocytes % (Manual) 7, Eosinophils % ( Manual) 5H, Basophils % (Manual) 2, Band Neutrophils 0, Platelet Estimate DecreasedL, Platelet Morphology Normal, Hypochromasia 4+, Anisocytosis 2+, Sodium Level 128L, Potassium Level 4.3, Chloride Level 89L, Carbon Dioxide Level 24, Anion Gap 15, Blood Urea Nitrogen 29H, Creatinine 0.5L, Estimat Glomerular Filtration Rate > 60, Glucose Level 92, Calcium Level 7.9L, Albumin 1.6L, Spherocytes 2+, Phosphorus Level 5.5H Current Medications Medications (Trade) Dose Ordered Sig/Hair Route PRN Reason Start Time Stop Time Status Last Admin Dose Admin Acetaminophen 650 mg 650 mg Q4H PRN ORAL FEVER 08/18/16 15:45 09/17/16 15:44 Albuterol/ Ipratropium 3 ml 3 ml EVERY 4 HOURS PRN HHN Shortness of Breath 08/18/16 15:45 08/23/16 15:44 Dextrose (Dextrose 50%) STAT PRN IV Hypoglycemia 08/18/16 15:45 09/17/16 15:44 Furosemide (Lasix) 20 mg DAILY GT 08/19/16 09:00 09/18/16 08:59 08/19/16 08:19 Lactulose (Cephulac) 20 gm BID ORAL 08/19/16 12:00 09/18/16 11:59 Levetiracetam 1500 mg 1,500 mg Q12HR GT 08/18/16 21:00 09/17/16 20:59 08/19/16 08:18 Lorazepam (Ativan 2mg/ml 1ml) 2 mg EVERY 2 HOURS PRN IV For Anxiety 08/18/16 15:45 08/25/16 15:44 Morphine Sulfate (Morphine Sulfate) 4 mg EVERY 4 HOURS PRN IVP Severe Pain (Pain Scale 7-10) 08/18/16 15:45 08/25/16 15:44 Ondansetron HCl (Zofran) 4 mg Q6H PRN IVP Nausea & Vomiting 08/18/16 15:45 09/17/16 15:44 Pantoprazole (Protonix) 40 mg EVERY 12 HOURS IVP 08/19/16 12:00 09/18/16 11:59 Piperacillin Sod/ Tazobactam Sod/ Sodium Chloride (Zosyn/Sodium Chloride) 110 ml @ 27.5 mls/hr Q8HR@0400,1200,1800 IVPB 08/18/16 18:00 08/25/16 17:59 08/19/16 05:10 Polyethylene Glycol (Miralax) 17 gm DAILYPRN PRN ORAL Constipation 08/18/16 15:45 09/17/16 15:44 Rifaximin (Xifaxan) 550 mg EVERY 12 HOURS ORAL 08/19/16 12:00 08/26/16 11:59 Sodium Chloride (0.45% NS 1000ml) 1,000 ml @ 75 mls/hr [id number] IV 08/18/16 17:00 09/17/16 16:59 08/18/16 18:30 Vancomycin HCl/ Dextrose (Vancomycin/D5W) 275 ml @ 183.3 mls/ hr Q12HR@1000,2200 IVPB 08/18/16 22:00 08/23/16 21:59 08/18/16 23:41 Vitamin A/Vitamin D (A & D Oint) 1 applic EVERY 12 HOURS TOPIC 08/18/16 21:00 09/17/16 20:59 08/19/16 08:18 DANTE HSIEH Aug 19, 2016 11:18
[2016-08-19 12:00] VITALS: BP 110/68
[2016-08-19] MEDS: Lactulose 20gm/30ml UDC ORAL SCH ×2 (12:02→17:14)
[2016-08-19] MEDS: Pantoprazole Inj IVP SCH ×2 (12:03→20:53)
[2016-08-19] MEDS: Rifaximin 550mg tab ORAL SCH ×2 (12:03→20:53)
--- NOTE | 2016-08-19 12:09 | Radiology PICC Progress Note ---
Radiology PICC Progress Note Consent Obtained: yes Upper Extremity: right Vein: basilic Complications: none BONNY OATES M.D. Aug 19, 2016 12:09
--- NOTE | 2016-08-19 15:01 | Diagnostic Imaging Report ---
Indications: Needs long-term IV access Technique: Procedure performed at bedside. Procedural timeout performed. Ultrasound confirms patent compressible right basilic vein. Total sterile technique, including sterile probe cover and sterile gel, sterile gloves, hand hygiene, hat, mask,, sterile gown, large sterile drape, and preparation with 2% chlorhexidine utilized. Local anesthesia with 1% lidocaine. Under real-time ultrasound guidance, puncture basilic vein using 21-gauge needle, passage 0.018 guidewire, exchange for 5 [place] peel-away sheath. 5 [place] Bard dual-lumen power PICC cut to 34 cm. It was inserted through the peel-away sheath. Peel-away sheath and guidewire removed. Catheter fixed to the skin. Both catheter ports aspirated and flushed. Patient tolerated procedure well, without immediate complication. Followup chest x-ray obtained, documents catheter tip position at the midsuperior vena cava Impression: Successful bedside placement of right arm PICC under sonographic guidance, as described above.
[2016-08-19 16:00] VITALS: BP 99/50
[2016-08-19] MEDS ORDERED: NS 275ml ONE (16:13)
[2016-08-19] MEDS ORDERED: 1/2 NS 1000ml IV ONE (16:13)
--- NOTE | 2016-08-19 16:39 | Cardiology Report ---
APPROVED REPORT EKG Measurement Heart [id number] [id number] Normal sinus rhythm Right bundle branch block Abnormal ECG
--- NOTE | 2016-08-19 16:40 | Brief Operative Note ---
Immediate Post Operative Note Operative Note Chief Complaint: ascites Pre-op Diagnosis: sepsis Procedure: US guided paracentesis Post-op Diagnosis: same as pre-op Surgeon: Karina OATES Anesthesia: local Specimen: yes - 60 ml clear yellow fluid sent to lab Complications: none Fluids: none Implant(s) used?: No BONNY OATES M.D. Aug 19, 2016 16:40
[2016-08-19] MEDS: Morphine Sulfate 4mg/ml Inj IVP PRN (18:39)
[2016-08-19 20:00] VITALS: BP 106/58
[2016-08-19 20:14] LABS: APPEARANCE, BODY FLUID HAZY; BD FL SOURCE THORACENTESIS; BD FL VOLUME 28 mL
[2016-08-19 20:15] LABS: BODY FLUID NUCLEATED CELLS 19 /CUMM; BODY FLUID RBC 144 /CUMM
[2016-08-19 21:46] LABS: MONONUCLEAR WBC 75 %; POLYMORPHONUCLEAR WBC 21 %
--- NOTE | 2016-08-19 21:55 | Consultation ---
Consult Note Assessment/Plan ID Dictated [id number]: 56 y/o male with: // probable sepsis , // Ascites , Sp paracentesis : no evid of SBP // Ro recurrent HCAP / VAP - - SCx PSA and Pr. Mirabilis, P mirabilis and KPC // Hx of Polymicrobial ( MRSA, M.morganii ,PSA ) bacteremia 06/02 , repeat BCx :neg , SP Rx - TTE(-) SBE // Hx of recurrent UTI - UCx : ESBL EColi ( Colonizer ) // Stage IV sacral debuitus ulcer // HCV Ab+ // Negative HIV // Elev Alk Ph: - HIDA scan :neg 07/15 // Afebrile without leukocytosis // Elevated ESR, CRP // H. pylori based on last endoscopy. plan to treat when the patient gets discharged as per GI // SP paracentesis : no evid of SBP // GI bleed , SP EGD 07/22 : Esophagus ulceration on the band and severe portal hypertensive gastropathy. // Chronic liver disease / cirrhosis with elevated LFTs, US : GB wall thickening ( probably 2nd to ascites ) CT: Liver cirrhosis with stigmata of portal hypertension // Chronic VDRF SP trach, PEG // h/o CVA // [facility] resident // MDRO colonized // NKDA // Full Code PLAN: - cont pt on IV Vanco and Zosyn d # 1 07/28 SP Merrem and Colistin INH d# - monitor CBC, temperatures - monitor BMP - monitor CXR - vent support, trach care, aspiration precaution - Monitor Cx ( Bl, Ur ,Sp ) - wound care - EGD tomorrow as per GI SHARRI RAMÍREZ M.D. Aug 19, 2016 21:55
[2016-08-19] MEDS: Dyna-Hex 2% Top Sol 8oz TOPIC SCH (22:33)
--- NOTE | 2016-08-19 23:15 | Consultation ---
DATE OF CONSULTATION: NOTE: Incomplete Dictation CONSULTING PHYSICIAN: Marc Urena M.D. REFERRING PHYSICIAN: Uma Breen M.D. Marc Urena M.D. DR: KAYLA JOB#: [id number] CC:
[2016-08-20] VITALS: BP 103/58
--- NOTE | 2016-08-20 00:30 | Consultation ---
DATE OF CONSULTATION: INFECTIOUS DISEASES CONSULTATION CONSULTING PHYSICIAN: Marc Urena M.D. REFERRING PHYSICIAN: Uma Breen M.D. REASON FOR CONSULTATION: Sepsis, pneumonia, possible spontaneous bacterial peritonitis, and antibiotic management. HISTORY OF PRESENT ILLNESS: The patient is a 56-year-old male with multiple medical problems as listed below, who is well known to our service from recent admissions, now comes to the hospital due to the shortness of breath. The patient also was found to have significant ascites and undergoes paracentesis. The patient has been started on IV antibiotics, and Infectious Disease consultation has been requested for further evaluation of the patient and antibiotic management. The patient is not able to provide information. Information gathered through the chart and speaking to the staff. PAST MEDICAL HISTORY: 1. History of recent healthcare-associated pneumonia. 2. History of polymicrobial bacteremia. 3. History of gross hematuria and urinary tract infection due to ESBL E. coli. 4. Stage IV sacral decubitus. 5. History of hepatitis C antibody positive. 6. History of chronic elevated alkaline phosphatase. 7. History of GI bleed. 8. History of chronic liver disease. 9. History of ventilator-dependent respiratory failure. 10. Status post PEG. 11. History of CVA. ALLERGIES: No known drug allergies. MEDICATIONS: IV Vancomycin and Zosyn. SOCIAL HISTORY: The patient lives in a fci. FAMILY HISTORY: Unavailable. REVIEW OF SYSTEMS: Unobtainable. PHYSICAL EXAMINATION: VITAL SIGNS: Pulse 86, temperature 97.8, blood pressure 106/58, and respiratory rate 20. HEENT: Mild pale conjunctiva. No icterus. Head, normocephalic. NECK: No lymphadenopathy. CHEST: Coarse breathing sounds. HEART: S1 and S2. ABDOMEN: Soft and distended. No organomegaly. EXTREMITIES: No cyanosis at this time. NEUROLOGIC: Lethargic. LABORATORY AND DIAGNOSTIC DATA: White blood cells 5.9, hemoglobin 6.8, and platelets 117,000. UA, 10 to 15 red blood cells and 30 to 40 white blood cells. Hepatitis C antibody positive, hepatitis B antigen negative. BUN 29, creatinine 0.9. Alkaline phosphatase 209. Lactic acid unremarkable. Urine culture is growing gram-negative pina. Peritoneal fluid, total nucleated cells 19. ASSESSMENT: The patient is a 56-year-old male with multiple medical problems, who has been admitted to this medical center with anemia, respiratory failure, possible underlying pneumonia, and also sepsis. The patient's workup is not suggestive of peritonitis. The patient was negative from empiric antibiotic treatment. We will get further information from cultures. PLAN: 1. We will continue the patient on vancomycin and Zosyn day #1. 2. Monitor CBC. 3. Monitor BMP. 4. Monitor cultures (blood, sputum, and urine). 5. Monitor chest x-ray. Based on the patient's clinical course and labs and cultures, we will do further recommendations. Thank you, Dr. Breen, for allowing me to participate in the care of this patient. I will follow the patient with you during this hospitalization. Macr Urena M.D. DR: CASTRO JOB#: [id number] CC:
[2016-08-20 04:00] VITALS: BP 104/57
[2016-08-20] MEDS: Piperacillin/Tazobactam 3.375 GM in NS 110 ML IVPB SCH ×3 (04:30→17:25)
[2016-08-20 07:38] LABS: ALANINE AMINOTRANSFERASE 9 U/L (3-41); ALBUMIN/GLOBULIN RATIO 0.3 (1.0-2.7); ANION GAP 16 (5-15); ASPARTATE AMINO TRANSFERASE 22 U/L (5-40); CALCIUM 7.7 mg/dL (8.6-10.2); CARBON DIOXIDE 23 mEQ/L (20-30); CHLORIDE 89 mEQ/L (98-107); CREATININE 0.4 mg/dL (0.7-1.2); GLOMERULAR FILTRATION RATE > 60 mL/min (>60); HEMOLYSIS 2; MAGNESIUM 1.9 mg/dL (1.7-2.5); PHOSPHORUS 4.1 mg/dL (2.5-4.8); POTASSIUM 3.8 mEQ/L (3.4-4.9); SODIUM 128 mEQ/L (135-145); TOTAL PROTEIN 6.4 g/dL (6.6-8.7)
[2016-08-20 07:52] LABS: MEAN CORPUSCULAR HEMOGLOBIN 32.8 PG (27.0-31.0); MEAN CORPUSCULAR HGB CONC 33.6 G/DL (32.0-36.0); MEAN CORPUSCULAR VOLUME 97 FL (80-99); MEAN PLATELET VOLUME 5.5 FL (6.5-10.1); PLATELET COUNT 119 K/UL (150-450); RED BLOOD COUNT 2.37 M/UL (4.70-6.10); RED CELL DISTRIBUTION WIDTH 18.2 % (11.6-14.8); WHITE BLOOD COUNT 7.2 K/UL (4.8-10.8)
[2016-08-20 07:54] LABS: BILIRUBIN,DIRECT 0.4 mg/dL (0.1-0.3); INR 1.3 (0.9-1.1); PROTHROMBIN TIME 13.3 SEC (9.30-11.50)
[2016-08-20 07:59] VITALS: BP 102/59
[2016-08-20] MEDS: Rifaximin 550mg tab ORAL SCH (08:07)
[2016-08-20] MEDS: Lactulose 20gm/30ml UDC ORAL SCH (08:07)
[2016-08-20] MEDS: levETIRAcetam 500mg/5ml Liquid GT SCH ×2 (08:07→20:50)
[2016-08-20] MEDS: Pantoprazole Inj IVP SCH ×2 (08:08→20:49)
[2016-08-20] MEDS: Vitamin A&D Oint 2oz Tube TOPIC SCH ×3 (08:08→20:52)
[2016-08-20] MEDS: Dyna-Hex 2% Top Sol 8oz TOPIC SCH (08:08)
--- NOTE | 2016-08-20 08:31 | Diagnostic Imaging Report ---
Indications: Ascites Technique: Ultrasound used to localize optimal puncture site. Sterile prepping and draping right lower quadrant. Local anesthesia with 1% lidocaine. Under real-time ultrasound guidance, puncture peritoneal space using paracentesis needle. Stylet removed. Catheter placed to vacuum bottle suction. Total 9.7 liters of clear yellow fluid aspirated. Patient tolerated procedure well, without immediate complication. Findings: Followup sonography demonstrates complete resolution of peritoneal fluid. Impression: Successful ultrasound-guided paracentesis, yielding 9.7 liters clear yellow of fluid
[2016-08-20 09:51] LABS: ANISOCYTOSIS 1+; BAND NEUTROPHILS % (MANUAL) 0 % (0-8); BASOPHILS % (MANUAL) 0 % (0-2); EOSINOPHILS % (MANUAL) 1 % (0-3); HYPOCHROMASIA 1+; LYMPHOCYTES % (MANUAL) 9 % (20-45); NEUTROPHILS % (MANUAL) 87 % (45-75); PLATELET ESTIMATE DECREASED; PLATELET MORPHOLOGY NORMAL; TOTAL CELLS COUNTED 100
[2016-08-20] MEDS ORDERED: Vancomycin 1gm/D5W 275ml IVPB SCH ×2 (10:00)
[2016-08-20] MEDS ORDERED: NS 550ML IV ONE (11:30)
--- NOTE | 2016-08-20 11:32 | Pulmonology Progress Note ---
Assessment/Plan Problems: (1) Altered level of consciousness (2) Sepsis (3) Liver cirrhosis (4) Feeding by G-tube (5) hep c (6) Ascites Assessment/Plan paracentesis check ammonia level, españa cultures gtube feeding dvt prophylaxis social service consult for end of life meeting with family attempted, pt's mother will never agree with comfort care ( I was told by social services manager). Subjective ROS Limited/Unobtainable: Yes Allergies: Coded Allergies: No Known Allergies (Unverified , 06/09/16) Objective Last 24 Hour Vital Signs Date Time Temp Pulse Resp B/P Pulse Ox O2 Delivery O2 Flow Rate FiO2 08/20/16 11:01 71 14 30 08/20/16 09:01 73 14 30 08/20/16 08:00 78 08/20/16 08:00 35 08/20/16 07:59 97.2 83 19 102/59 100 Mechanical Ventilator 30 08/20/16 06:41 86 14 30 08/20/16 04:45 104 24 50 08/20/16 04:00 35 08/20/16 04:00 96.9 96 28 104/57 99 Mechanical Ventilator 35 08/20/16 04:00 84 08/20/16 03:18 88 18 50 08/20/16 00:50 90 17 50 08/20/16 00:00 90 08/20/16 00:00 35 08/20/16 00:00 97.5 87 18 103/58 99 Mechanical Ventilator 35 08/19/16 23:07 91 17 50 08/19/16 21:08 90 19 50 08/19/16 20:00 35 08/19/16 20:00 97 08/19/16 20:00 97.5 96 20 106/58 100 Mechanical Ventilator 08/19/16 19:20 95 19 50 08/19/16 19:00 97.8 08/19/16 16:54 97 21 50 08/19/16 16:00 87 08/19/16 16:00 97.8 89 19 99/50 100 Mechanical Ventilator 08/19/16 15:29 81 17 50 08/19/16 13:13 83 15 50 08/19/16 12:00 91 08/19/16 12:00 97.2 84 19 110/68 100 Mechanical Ventilator Intake and Output 08/19/16 08/20/16 19:00 07:00 Intake Total 1517.5 ml 1741.25 ml Output Total 62839 ml 550 ml Balance -8632.5 ml 1191.25 ml Free Water 450 ml IV Total 717.5 ml 1051.25 ml Tube Feeding 520 ml 240 ml Blood Product 250 ml Other 30 ml Output Urine Total 450 ml 550 ml Other 9700 ml Objective paracentesis on 08/19 yielding 9 liters of ascitic fluid. General Appearance: cachetic HEENT: normocephalic, atraumatic Cardiovascular: normal peripheral pulses, normal rate Abdomen: normal bowel sounds, soft, non tender, distended, other Extremities: no cyanosis, no clubbing, pedal pulses normal Skin: no rash Neurologic/Psychiatric: unresponsiveness, depressed affect Lymphatic: no neck adenopathy Microbiology Date/Time Source Procedure Growth Status 08/18/16 11:45 Blood Blood Culture - Preliminary NO GROWTH AFTER 24 HOURS Resulted 08/18/16 11:30 Blood Blood Culture - Preliminary NO GROWTH AFTER 24 HOURS Resulted 08/19/16 16:30 Ascities Fluid Gram Stain - Final Resulted 08/19/16 16:30 Ascities Fluid Body Fluid Culture - Preliminary NO GROWTH Resulted 08/18/16 11:20 Urine,Clean Catch Urine Culture - Final Escherichia Coli - Esbl Complete Laboratory Tests 08/19/16 16:30: Body Fluid Source Thoracentesis, Body Fluid Volume 28, Body Fluid Appearance Hazy, Body Fluid RBC 144, Body Fluid Total Nucleated Cells 19, Body Fluid Polynuclear WBCs (%) 21, Body Fluid Mononuclear WBCs (%) 75, Body Fluid Mesothelial Cells (%) 4, Body Fluid Glucose [Pending], Body Fluid Total Protein [Pending], Body Fluid Albumin [Pending] 08/19/16 21:15: Vancomycin Level Trough 21.8H 08/20/16 05:15: White Blood Count 7.2, Red Blood Count 2.37L, Hemoglobin 7.8L, Hematocrit 23.1L , Mean Corpuscular Volume 97, Mean Corpuscular Hemoglobin 32.8H, Mean Corpuscular Hemoglobin Concent 33.6, Red Cell Distribution Width 18.2H, Platelet Count 119L, Mean Platelet Volume 5.5L, Neutrophils (%) (Auto) , Lymphocytes (%) (Auto) , Monocytes (%) (Auto) , Eosinophils (%) (Auto) , Basophils (%) (Auto) , Differential Total Cells Counted 100, Neutrophils % ( Manual) 87H, Lymphocytes % (Manual) 9L, Monocytes % (Manual) 3, Eosinophils % ( Manual) 1, Basophils % (Manual) 0, Band Neutrophils 0, Platelet Estimate DecreasedL, Platelet Morphology Normal, Hypochromasia 1+, Anisocytosis 1+, Prothrombin Time 13.3H, Prothromb Time International Ratio 1.3H, Activated Partial Thromboplast Time 32, Sodium Level 128L, Potassium Level 3.8, Chloride Level 89L, Carbon Dioxide Level 23, Anion Gap 16H, Blood Urea Nitrogen 19, Creatinine 0.4L, Estimat Glomerular Filtration Rate > 60, Glucose Level 91, Calcium Level 7.7L, Phosphorus Level 4.1, Magnesium Level 1.9, Total Bilirubin 1.2, Direct Bilirubin 0.4H, Aspartate Amino Transf (AST/SGOT) 22, Alanine Aminotransferase (ALT/SGPT) 9, Alkaline Phosphatase 196H, Total Protein 6.4L, Albumin 1.7L, Globulin 4.7, Albumin/Globulin Ratio 0.3L Current Medications Medications (Trade) Dose Ordered Sig/Hair Route PRN Reason Start Time Stop Time Status Last Admin Dose Admin Acetaminophen (Tylenol) 650 mg Q4H PRN ORAL FEVER 08/18/16 15:45 09/17/16 15:44 Albuterol/ Ipratropium 3 ml 3 ml EVERY 4 HOURS PRN HHN Shortness of Breath 08/18/16 15:45 08/23/16 15:44 Chlorhexidine Gluconate 1 applic 1 applic DAILY TOPIC 08/19/16 22:00 09/18/16 21:59 08/20/16 08:08 Dextrose (Dextrose 50%) STAT PRN IV Hypoglycemia 08/18/16 15:45 09/17/16 15:44 Furosemide (Lasix) 20 mg DAILY GT 08/19/16 09:00 09/18/16 08:59 08/20/16 08:07 Lactulose (Cephulac) 20 gm BID ORAL 08/19/16 12:00 09/18/16 11:59 08/20/16 08:07 Levetiracetam 1500 mg 1,500 mg Q12HR GT 08/18/16 21:00 09/17/16 20:59 08/20/16 08:07 Lorazepam (Ativan 2mg/ml 1ml) 2 mg EVERY 2 HOURS PRN IV For Anxiety 08/18/16 15:45 08/25/16 15:44 Morphine Sulfate (Morphine Sulfate) 4 mg EVERY 4 HOURS PRN IVP Severe Pain (Pain Scale 7-10) 08/18/16 15:45 08/25/16 15:44 08/19/16 18:39 Ondansetron HCl (Zofran) 4 mg Q6H PRN IVP Nausea & Vomiting 08/18/16 15:45 09/17/16 15:44 Pantoprazole (Protonix) 40 mg EVERY 12 HOURS IVP 08/19/16 12:00 09/18/16 11:59 08/20/16 08:08 Piperacillin Sod/ Tazobactam Sod/ Sodium Chloride (Zosyn/Sodium Chloride) 110 ml @ 27.5 mls/hr Q8HR@0400,1200,1800 IVPB 08/18/16 18:00 08/25/16 17:59 08/20/16 11:14 Polyethylene Glycol (Miralax) 17 gm DAILYPRN PRN ORAL Constipation 08/18/16 15:45 09/17/16 15:44 Rifaximin (Xifaxan) 550 mg EVERY 12 HOURS ORAL 08/19/16 12:00 08/26/16 11:59 08/20/16 08:07 Sodium Chloride (0.45% NS 1000ml) 1,000 ml @ 75 mls/hr [id number] IV 08/18/16 17:00 09/17/16 16:59 08/20/16 08:08 Vancomycin HCl/ Dextrose (Vancomycin/D5W) 275 ml @ 183.708 mls/hr Q12H IVPB 08/20/16 10:00 08/25/16 09:59 08/20/16 09:25 Vitamin A/Vitamin D (A & D Oint) 1 applic EVERY 12 HOURS TOPIC 08/18/16 21:00 09/17/16 20:59 08/20/16 08:08 Vitamin A/Vitamin D (A & D Oint) 1 applic EVERY 12 HOURS TOPIC 08/19/16 12:30 09/18/16 12:29 08/19/16 22:33 DANTE HSIEH Aug 20, 2016 11:32
--- NOTE | 2016-08-20 11:58 | Anethesia Preoperative Eval ---
Anesthesia Pre-op PMH/ROS General Date of Evaluation: Aug 20, 2016 Time of Evaluation: 11:58 Anesthesiologist: tanmay ASA Score: ASA 4 Mallampati Score Class I : Soft palate, uvula, fauces, pillars visible Class II: Soft palate, uvula, fauces visible Class III: Soft palate, base of uvula visible Class IV: Only hard plate visible Mallampati Classification: Class II Surgeon: ina Diagnosis: cirrhosis Anesthesia History: none Family History: no anesthesia problems Allergies: Coded Allergies: No Known Allergies (Unverified , 06/09/16) Medications: see eMAR Past Medical History Cardiovascular: Reports: HTN Pulmonary: Reports: other - resp failure/trached/mech vent Gastrointestinal/Genitourinary: Reports: other - ESLD/ hep c / liver cirrhosis/ sepsis, Denies: CRI, ESRD, GERD Neurologic/Psychiatric: Denies: CVA, TIA, dementia, depression/anxiety, other Endocrine: Denies: DM, hypothyroidism, other, steroids HEENT: Denies: LITTLE TRAVERSE (L), LITTLE TRAVERSE (R), cataract (L), cataract (R), glaucoma, other Hematology/Immune: Reports: anemia Musculoskeletal/Integumentary: Denies: DDD, DJD, OA, RA, edema, other PSxH Narrative: banding Anesthesia Pre-op Phys. Exam Physician Exam Last Vital Signs Date Time Temp Pulse Resp B/P Pulse Ox O2 Delivery O2 Flow Rate FiO2 08/20/16 11:01 71 14 30 08/20/16 07:59 97.2 102/59 100 Mechanical Ventilator Neurologic: other - consent obtained via brother Cardiovascular: other - bbb Respiratory: CTA, other - mechanically ventilated Airway Exam Mallampati Score: Class III MO: limited ROM: limited Dentures: no lower, no upper Anesthesia Pre-op A/P Labs Hematology Test 08/20/16 05:15 White Blood Count 7.2 K/UL (4.8-10.8) Red Blood Count 2.37 M/UL (4.70-6.10) L Hemoglobin 7.8 G/DL (14.2-18.0) L Hematocrit 23.1 % (42.0-52.0) L Mean Corpuscular Volume 97 FL (80-99) Mean Corpuscular Hemoglobin 32.8 PG (27.0-31.0) H Mean Corpuscular Hemoglobin Concent 33.6 G/DL (32.0-36.0) Red Cell Distribution Width 18.2 % (11.6-14.8) H Platelet Count 119 K/UL (150-450) L Mean Platelet Volume 5.5 FL (6.5-10.1) L Neutrophils (%) (Auto) % (45.0-75.0) Lymphocytes (%) (Auto) % (20.0-45.0) Monocytes (%) (Auto) % (1.0-10.0) Eosinophils (%) (Auto) % (0.0-3.0) Basophils (%) (Auto) % (0.0-2.0) Differential Total Cells Counted 100 Neutrophils % (Manual) 87 % (45-75) H Lymphocytes % (Manual) 9 % (20-45) L Monocytes % (Manual) 3 % (1-10) Eosinophils % (Manual) 1 % (0-3) Basophils % (Manual) 0 % (0-2) Band Neutrophils 0 % (0-8) Platelet Estimate Decreased L Platelet Morphology Normal Hypochromasia 1+ Anisocytosis 1+ Coagulation Test 08/20/16 05:15 Prothrombin Time 13.3 SEC (9.30-11.50) H Prothromb Time International Ratio 1.3 (0.9-1.1) H Activated Partial Thromboplast Time 32 SEC (23-33) Chemistry Test 08/20/16 05:15 Sodium Level 128 mEQ/L (135-145) L Potassium Level 3.8 mEQ/L (3.4-4.9) Chloride Level 89 mEQ/L (98-107) L Carbon Dioxide Level 23 mEQ/L (20-30) Anion Gap 16 (5-15) H Blood Urea Nitrogen 19 mg/dL (7-23) Creatinine 0.4 mg/dL (0.7-1.2) L Estimat Glomerular Filtration Rate > 60 mL/min (>60) Glucose Level 91 mg/dL (74-106) Calcium Level 7.7 mg/dL (8.6-10.2) L Phosphorus Level 4.1 mg/dL (2.5-4.8) Magnesium Level 1.9 mg/dL (1.7-2.5) Total Bilirubin 1.2 mg/dL (0.0-1.2) Direct Bilirubin 0.4 mg/dL (0.1-0.3) H Aspartate Amino Transf (AST/SGOT) 22 U/L (5-40) Alanine Aminotransferase (ALT/SGPT) 9 U/L (3-41) Alkaline Phosphatase 196 U/L (40-129) H Total Protein 6.4 g/dL (6.6-8.7) L Albumin 1.7 g/dL (3.5-5.2) L Globulin 4.7 g/dL Albumin/Globulin Ratio 0.3 (1.0-2.7) L Studies Pre-op Studies: EKG - BBB Risk Assessment & Plan Plan: mac Status Change Before Surgery: No Pre-Antibiotics Drug: none FAN DUKES CRNA Aug 20, 2016 11:58
[2016-08-20 12:00] VITALS: BP 92/51
--- NOTE | 2016-08-20 12:02 | 48 Hour Post Anesthesia Eval ---
Post Anesthesia Evaluation Procedure: EGD/Banding Date of Evaluation: Aug 20, 2016 Time of Evaluation: 12:01 Blood Pressure Systolic: 120 0: 85 Pulse Rate: 74 Respiratory Rate: 14 O2 Sat by Pulse Oximetry: 100 Airway: other - mechanically ventilated via trach Nausea: No Vomiting: No Hydration Status: adequate Cardiopulmonary Status: stable Mental Status/LOC: patient returned to baseline Post-Anesthesia Complications: none Follow-up care needed: N/A FAN DUKES CRNA Aug 20, 2016 12:02
--- NOTE | 2016-08-20 12:03 | Immediate Post-Op Evaluation ---
Immediate Post-Op Evalulation Immediate Post-Op Evalulation Procedure: EGD/Banding Date of Evaluation: Aug 20, 2016 Time of Evaluation: 11:50 IV Fluids: 200 Blood Pressure Systolic: 100 Blood Pressure Diastolic: 60 Pulse Rate: 74 Respiratory Rate: 14 O2 Sat by Pulse Oximetry: 100 Nausea: No Vomiting: No Complications none Patient Status: reacts, ventilated Hydration Status: adequate Drug: none FAN DUKES CRNA Aug 20, 2016 12:03
[2016-08-20] MEDS ORDERED: Miralax 17gm pkt GT PRN (12:40)
[2016-08-20 14:13] LABS: COMMENT,BODY FLUID PATHOLOGIST COMMENT
[2016-08-20] MEDS: Morphine Sulfate 4mg/ml Inj IVP PRN (14:59)
[2016-08-20 15:55] VITALS: BP 106/53
[2016-08-20] MEDS: Lactulose 20gm/30ml UDC GT SCH (17:25)
--- NOTE | 2016-08-20 18:39 | Infectious Diseases Prog Note ---
Assessment/Plan Assessment/Plan ASSESSMENT: 56 y/o male with: // no evid of sepsis , // Ascites , Sp paracentesis : no evid of SBP // hx of recurrent HCAP / VAP - - SCx PSA and Pr. Mirabilis, P mirabilis and KPC // Hx of Polymicrobial ( MRSA, M.morganii ,PSA ) bacteremia 06/02 , repeat BCx :neg , SP Rx - TTE(-) SBE // Hx of recurrent UTI - UCx : ESBL EColi ( Colonizer ) // Stage IV sacral debuitus ulcer // HCV Ab+ // Negative HIV // Elev Alk Ph: - HIDA scan :neg 07/15 // Afebrile without leukocytosis // Elevated ESR, CRP // H. pylori based on last endoscopy. plan to treat when the patient gets discharged as per GI // SP paracentesis : no evid of SBP // GI bleed , SP EGD 07/22 : Esophagus ulceration on the band and severe portal hypertensive gastropathy. // Chronic liver disease / cirrhosis with elevated LFTs, US : GB wall thickening ( probably 2nd to ascites ) CT: Liver cirrhosis with stigmata of portal hypertension // Chronic VDRF SP trach, PEG // h/o CVA // [facility] resident // MDRO colonized // NKDA // Full Code PLAN: - DC IV Vanco and Zosyn d # 2 07/28 SP Merrem and Colistin INH d# 7 / - monitor CBC, temperatures - monitor BMP - monitor CXR - vent support, trach care, aspiration precaution - Monitor Cx ( Bl, Sp ) - wound care - EGD as per GI Subjective Constitutional: Denies: anorexia, chills, drenching sweats, fatigue, fever, no symptoms, other Allergies: Coded Allergies: No Known Allergies (Unverified , 06/09/16) Objective Vital Signs Last 24 Hour Vital Signs Date Time Temp Pulse Resp B/P Pulse Ox O2 Delivery O2 Flow Rate FiO2 08/20/16 16:43 77 18 30 08/20/16 16:00 68 08/20/16 16:00 35 08/20/16 15:55 97.1 69 15 106/53 100 Mechanical Ventilator 35 08/20/16 15:30 96.8 08/20/16 14:36 79 18 30 08/20/16 12:55 70 18 30 08/20/16 12:03 74 14 100 08/20/16 12:02 74 14 100 08/20/16 12:00 96.8 80 16 92/51 99 Mechanical Ventilator 35 08/20/16 12:00 77 08/20/16 12:00 35 08/20/16 11:01 71 14 30 08/20/16 09:01 73 14 30 08/20/16 08:00 78 08/20/16 08:00 35 08/20/16 07:59 97.2 83 19 102/59 100 Mechanical Ventilator 30 08/20/16 06:41 86 14 30 08/20/16 04:45 104 24 50 08/20/16 04:00 35 08/20/16 04:00 96.9 96 28 104/57 99 Mechanical Ventilator 35 08/20/16 04:00 84 08/20/16 03:18 88 18 50 08/20/16 00:50 90 17 50 08/20/16 00:00 90 08/20/16 00:00 35 08/20/16 00:00 97.5 87 18 103/58 99 Mechanical Ventilator 35 08/19/16 23:07 91 17 50 08/19/16 21:08 90 19 50 08/19/16 20:00 35 08/19/16 20:00 97 08/19/16 20:00 97.5 96 20 106/58 100 Mechanical Ventilator 08/19/16 19:20 95 19 50 Height (Feet): 5 Height (Inches): 8.00 Weight (Pounds): 160 HEENT: anicteric Respiratory/Chest: normal breath sounds Cardiovascular: regular rhythm Abdomen: no mass Skin: no lesions Microbiology Date/Time Source Procedure Growth Status 08/18/16 11:45 Blood Blood Culture - Preliminary NO GROWTH AFTER 24 HOURS Resulted 08/18/16 11:30 Blood Blood Culture - Preliminary NO GROWTH AFTER 24 HOURS Resulted 08/19/16 16:30 Ascities Fluid Gram Stain - Final Resulted 08/19/16 16:30 Ascities Fluid Body Fluid Culture - Preliminary NO GROWTH Resulted 08/18/16 11:20 Urine,Clean Catch Urine Culture - Final Escherichia Coli - Esbl Complete Laboratory Tests Test 08/19/16 21:15 08/20/16 05:15 Vancomycin Level Trough 21.8 ug/mL (5.0-12.0) H White Blood Count 7.2 K/UL (4.8-10.8) Red Blood Count 2.37 M/UL (4.70-6.10) L Hemoglobin 7.8 G/DL (14.2-18.0) L Hematocrit 23.1 % (42.0-52.0) L Mean Corpuscular Volume 97 FL (80-99) Mean Corpuscular Hemoglobin 32.8 PG (27.0-31.0) H Mean Corpuscular Hemoglobin Concent 33.6 G/DL (32.0-36.0) Red Cell Distribution Width 18.2 % (11.6-14.8) H Platelet Count 119 K/UL (150-450) L Mean Platelet Volume 5.5 FL (6.5-10.1) L Neutrophils (%) (Auto) % (45.0-75.0) Lymphocytes (%) (Auto) % (20.0-45.0) Monocytes (%) (Auto) % (1.0-10.0) Eosinophils (%) (Auto) % (0.0-3.0) Basophils (%) (Auto) % (0.0-2.0) Differential Total Cells Counted 100 Neutrophils % (Manual) 87 % (45-75) H Lymphocytes % (Manual) 9 % (20-45) L Monocytes % (Manual) 3 % (1-10) Eosinophils % (Manual) 1 % (0-3) Basophils % (Manual) 0 % (0-2) Band Neutrophils 0 % (0-8) Platelet Estimate Decreased L Platelet Morphology Normal Hypochromasia 1+ Anisocytosis 1+ Prothrombin Time 13.3 SEC (9.30-11.50) H Prothromb Time International Ratio 1.3 (0.9-1.1) H Activated Partial Thromboplast Time 32 SEC (23-33) Sodium Level 128 mEQ/L (135-145) L Potassium Level 3.8 mEQ/L (3.4-4.9) Chloride Level 89 mEQ/L (98-107) L Carbon Dioxide Level 23 mEQ/L (20-30) Anion Gap 16 (5-15) H Blood Urea Nitrogen 19 mg/dL (7-23) Creatinine 0.4 mg/dL (0.7-1.2) L Estimat Glomerular Filtration Rate > 60 mL/min (>60) Glucose Level 91 mg/dL (74-106) Calcium Level 7.7 mg/dL (8.6-10.2) L Phosphorus Level 4.1 mg/dL (2.5-4.8) Magnesium Level 1.9 mg/dL (1.7-2.5) Total Bilirubin 1.2 mg/dL (0.0-1.2) Direct Bilirubin 0.4 mg/dL (0.1-0.3) H Aspartate Amino Transf (AST/SGOT) 22 U/L (5-40) Alanine Aminotransferase (ALT/SGPT) 9 U/L (3-41) Alkaline Phosphatase 196 U/L (40-129) H Total Protein 6.4 g/dL (6.6-8.7) L Albumin 1.7 g/dL (3.5-5.2) L Globulin 4.7 g/dL Albumin/Globulin Ratio 0.3 (1.0-2.7) L Current Medications Medications (Trade) Dose Ordered Sig/Hair Route PRN Reason Start Time Stop Time Status Last Admin Dose Admin Acetaminophen (Tylenol) 650 mg Q4H PRN ORAL FEVER 08/18/16 15:45 09/17/16 15:44 Albuterol/ Ipratropium 3 ml 3 ml EVERY 4 HOURS PRN HHN Shortness of Breath 08/18/16 15:45 08/23/16 15:44 Chlorhexidine Gluconate 1 applic 1 applic DAILY TOPIC 08/19/16 22:00 09/18/16 21:59 08/20/16 08:08 Dextrose (Dextrose 50%) STAT PRN IV Hypoglycemia 08/18/16 15:45 09/17/16 15:44 Furosemide (Lasix) 20 mg DAILY GT 08/19/16 09:00 09/18/16 08:59 08/20/16 08:07 Lactulose (Cephulac) 20 gm BID GT 08/20/16 12:40 09/18/16 11:59 08/20/16 17:25 Levetiracetam 1500 mg 1,500 mg Q12HR GT 08/18/16 21:00 09/17/16 20:59 08/20/16 08:07 Lorazepam (Ativan 2mg/ml 1ml) 2 mg EVERY 2 HOURS PRN IV For Anxiety 08/18/16 15:45 08/25/16 15:44 Morphine Sulfate (Morphine Sulfate) 4 mg EVERY 4 HOURS PRN IVP Severe Pain (Pain Scale 7-10) 08/18/16 15:45 08/25/16 15:44 08/20/16 14:59 Ondansetron HCl (Zofran) 4 mg Q6H PRN IVP Nausea & Vomiting 08/18/16 15:45 09/17/16 15:44 Pantoprazole (Protonix) 40 mg EVERY 12 HOURS IVP 08/19/16 12:00 09/18/16 11:59 08/20/16 08:08 Piperacillin Sod/ Tazobactam Sod/ Sodium Chloride (Zosyn/Sodium Chloride) 110 ml @ 27.5 mls/hr Q8HR@0400,1200,1800 IVPB 08/18/16 18:00 08/25/16 17:59 08/20/16 17:25 Polyethylene Glycol (Miralax) 17 gm DAILYPRN PRN GT Constipation 08/20/16 12:40 09/17/16 15:44 Rifaximin (Xifaxan) 550 mg EVERY 12 HOURS GT 08/20/16 12:40 08/26/16 11:59 Sodium Chloride (0.45% NS 1000ml) 1,000 ml @ 75 mls/hr [id number] IV 08/18/16 17:00 09/17/16 16:59 08/20/16 08:08 Vancomycin HCl/ Dextrose (Vancomycin/D5W) 275 ml @ 183.708 mls/hr Q12H IVPB 08/20/16 10:00 08/25/16 09:59 08/20/16 09:25 Vitamin A/Vitamin D (A & D Oint) 1 applic EVERY 12 HOURS TOPIC 08/18/16 21:00 09/17/16 20:59 08/20/16 08:08 Vitamin A/Vitamin D (A & D Oint) 1 applic EVERY 12 HOURS TOPIC 08/19/16 12:30 09/18/16 12:29 08/19/16 22:33 SHARRI RAMÍREZ M.D. Aug 20, 2016 18:39
[2016-08-20 19:13] LABS: PROTEIN, BODY FLUID 0.9 g/dL (.)
[2016-08-20 20:07] VITALS: BP 100/52
[2016-08-20] MEDS: Rifaximin 550mg tab GT SCH (20:50)
[2016-08-20] MEDS ORDERED: Dyna-Hex 2% Top Sol 8oz TOPIC SCH (21:00)
[2016-08-21] VITALS: BP 111/55
[2016-08-21] MEDS: Morphine Sulfate 4mg/ml Inj IVP PRN ×4 (01:13→22:50)
[2016-08-21 04:00] VITALS: BP 106/75
[2016-08-21 05:46] LABS: BASOPHILS % (AUTO) 1.8 % (0.0-2.0); EOSINOPHILS % (AUTO) 4.7 % (0.0-3.0); LYMPHOCYTES % (AUTO) 7.9 % (20.0-45.0); MEAN CORPUSCULAR HEMOGLOBIN 31.5 PG (27.0-31.0); MEAN CORPUSCULAR HGB CONC 33.3 G/DL (32.0-36.0); MEAN CORPUSCULAR VOLUME 95 FL (80-99); MEAN PLATELET VOLUME 5.3 FL (6.5-10.1); MONOCYTES % (AUTO) 10.6 % (1.0-10.0); PLATELET COUNT 115 K/UL (150-450); RED BLOOD COUNT 2.68 M/UL (4.70-6.10); RED CELL DISTRIBUTION WIDTH 17.6 % (11.6-14.8); WHITE BLOOD COUNT 5.7 K/UL (4.8-10.8)
[2016-08-21 06:03] LABS: INR 1.3 (0.9-1.1); PROTHROMBIN TIME 13.8 SEC (9.30-11.50)
[2016-08-21 06:17] LABS: ALANINE AMINOTRANSFERASE 9 U/L (3-41); ALBUMIN/GLOBULIN RATIO 0.3 (1.0-2.7); ANION GAP 13 (5-15); ASPARTATE AMINO TRANSFERASE 21 U/L (5-40); CALCIUM 7.1 mg/dL (8.6-10.2); CARBON DIOXIDE 23 mEQ/L (20-30); CHLORIDE 90 mEQ/L (98-107); CREATININE 0.3 mg/dL (0.7-1.2); GLOMERULAR FILTRATION RATE > 60 mL/min (>60); HEMOLYSIS 3; MAGNESIUM 1.8 mg/dL (1.7-2.5); PHOSPHORUS 2.7 mg/dL (2.5-4.8); POTASSIUM 3.5 mEQ/L (3.4-4.9); SODIUM 126 mEQ/L (135-145); TOTAL PROTEIN 5.7 g/dL (6.6-8.7)
[2016-08-21 08:00] VITALS: BP 103/53
[2016-08-21 08:02] LABS: BILIRUBIN,DIRECT 0.5 mg/dL (0.1-0.3)
[2016-08-21] MEDS: Lactulose 20gm/30ml UDC GT SCH ×2 (08:28→18:29)
[2016-08-21] MEDS: Rifaximin 550mg tab GT SCH ×2 (08:29→20:12)
[2016-08-21] MEDS: levETIRAcetam 500mg/5ml Liquid GT SCH ×2 (08:38→20:12)
[2016-08-21] MEDS: Vitamin A&D Oint 2oz Tube TOPIC SCH ×4 (08:44→20:45)
[2016-08-21] MEDS: Pantoprazole Inj IVP SCH (09:00)
--- NOTE | 2016-08-21 09:04 | Endoscopy Procedure Note ---
Endoscopy Procedure Note Indication for Procedure: gib Procedures Performed: EGD Operative Findings/Diagnosis: banding Specimen: none Pt Tolerated Procedure Well: Yes Estimated Blood Loss: none Anesthesiologist: abdoulaye Anesthesia: MAC Implant(s) used?: No 50 yrs or older w/o bx or poly: Not Applicable 10yrs. F/U not recommended: Not Applicable BRIA VELASQUEZ Aug 21, 2016 09:04
[2016-08-21] MEDS ORDERED: NS 275ml ONE (10:22)
[2016-08-21] MEDS ORDERED: Tubing IV Secondary IV ONE (10:22)
[2016-08-21] MEDS ORDERED: Tubing Blood Filter IV ONE (10:22)
[2016-08-21] MEDS ORDERED: 1/2 NS 1000ml IV ONE (10:22)
--- NOTE | 2016-08-21 10:34 | Pulmonology Progress Note ---
Assessment/Plan Problems: (1) Altered level of consciousness (2) Sepsis (3) Liver cirrhosis (4) Feeding by G-tube (5) hep c (6) Ascites Assessment/Plan paracentesis done, pt needs permanent catheter to drain the fluid check ammonia level, [place] cultures gtube feeding dvt prophylaxis continue abx Subjective ROS Limited/Unobtainable: Yes Interval Events: somnolent Allergies: Coded Allergies: No Known Allergies (Unverified , 06/09/16) Objective Last 24 Hour Vital Signs Date Time Temp Pulse Resp B/P Pulse Ox O2 Delivery O2 Flow Rate FiO2 08/21/16 08:57 68 16 30 08/21/16 08:00 97.6 71 14 103/53 100 Mechanical Ventilator 35 08/21/16 08:00 35 08/21/16 06:57 72 16 30 08/21/16 06:56 08/21/16 05:10 70 16 30 08/21/16 04:00 97.9 73 17 106/75 100 Mechanical Ventilator 35 08/21/16 04:00 62 08/21/16 04:00 35 08/21/16 02:58 71 14 30 08/21/16 01:00 68 15 30 08/21/16 00:00 35 08/21/16 00:00 70 08/21/16 00:00 97.6 72 18 111/55 100 Mechanical Ventilator 35 08/20/16 23:59 70 16 30 08/20/16 21:11 73 18 30 08/20/16 20:07 97.4 79 17 100/52 100 Mechanical Ventilator 35 08/20/16 20:00 72 08/20/16 20:00 35 08/20/16 19:23 75 18 30 08/20/16 16:43 77 18 30 08/20/16 16:00 68 08/20/16 16:00 35 08/20/16 15:55 97.1 69 15 106/53 100 Mechanical Ventilator 35 08/20/16 15:30 96.8 08/20/16 14:36 79 18 30 08/20/16 12:55 70 18 30 08/20/16 12:03 74 14 100 08/20/16 12:02 74 14 100 08/20/16 12:00 96.8 80 16 92/51 99 Mechanical Ventilator 35 08/20/16 12:00 77 08/20/16 12:00 35 08/20/16 11:01 71 14 30 Intake and Output 08/20/16 08/21/16 19:00 07:00 Intake Total 1751.250 ml 1333.75 ml Output Total 450 ml 500 ml Balance 1301.250 ml 833.75 ml Free Water 100 ml 150 ml IV Total 1251.250 ml 833.75 ml Tube Feeding 150 ml 350 ml Blood Product 250 ml Output Urine Total 450 ml 500 ml Objective paracentesis on 08/19 yielding 9 liters of ascitic fluid. 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, no motor/sensory deficits Lymphatic: no neck adenopathy Musculoskeletal: normal muscle bulk, no effusion Microbiology Date/Time Source Procedure Growth Status 08/18/16 11:45 Blood Blood Culture - Preliminary NO GROWTH AFTER 48 HOURS Resulted 08/18/16 11:30 Blood Blood Culture - Preliminary NO GROWTH AFTER 48 HOURS Resulted 08/19/16 16:30 Ascities Fluid Gram Stain - Final Resulted 08/19/16 16:30 Ascities Fluid Body Fluid Culture - Preliminary NO GROWTH Resulted 08/18/16 11:20 Urine,Clean Catch Urine Culture - Final Escherichia Coli - Esbl Complete Laboratory Tests 08/21/16 03:35: White Blood Count 5.7, Red Blood Count 2.68L, Hemoglobin 8.5L, Hematocrit 25.4L , Mean Corpuscular Volume 95, Mean Corpuscular Hemoglobin 31.5H, Mean Corpuscular Hemoglobin Concent 33.3, Red Cell Distribution Width 17.6H, Platelet Count 115L, Mean Platelet Volume 5.3L, Neutrophils (%) (Auto) 75.0, Lymphocytes (%) (Auto) 7.9L, Monocytes (%) (Auto) 10.6H, Eosinophils (%) (Auto) 4.7H, Basophils (%) (Auto) 1.8, Prothrombin Time 13.8H, Prothromb Time International Ratio 1.3H, Activated Partial Thromboplast Time 37H, Sodium Level 126L, Potassium Level 3.5, Chloride Level 90L, Carbon Dioxide Level 23, Anion Gap 13, Blood Urea Nitrogen 13, Creatinine 0.3L, Estimat Glomerular Filtration Rate > 60, Glucose Level 85, Calcium Level 7.1L, Phosphorus Level 2.7, Magnesium Level 1.8, Total Bilirubin 1.2, Direct Bilirubin 0.5H, Aspartate Amino Transf (AST/SGOT) 21, Alanine Aminotransferase (ALT/SGPT) 9, Alkaline Phosphatase 177H, Total Protein 5.7L, Albumin 1.6L, Globulin 4.1, Albumin/ Globulin Ratio 0.3L 08/21/16 09:35: Vancomycin Level Trough [Pending] Current Medications Medications (Trade) Dose Ordered Sig/Hair Route PRN Reason Start Time Stop Time Status Last Admin Dose Admin Acetaminophen (Tylenol) 650 mg Q4H PRN ORAL FEVER 08/18/16 15:45 09/17/16 15:44 Albuterol/ Ipratropium 3 ml 3 ml EVERY 4 HOURS PRN HHN Shortness of Breath 08/18/16 15:45 08/23/16 15:44 Chlorhexidine Gluconate (Tatum-Hex 2%) 1 applic HSPRN TOPIC 08/20/16 21:00 09/19/16 20:59 Dextrose (Dextrose 50%) STAT PRN IV Hypoglycemia 08/18/16 15:45 09/17/16 15:44 Furosemide (Lasix) 20 mg DAILY GT 08/19/16 09:00 09/18/16 08:59 08/21/16 08:29 Lactulose (Cephulac) 20 gm BID GT 08/20/16 12:40 09/18/16 11:59 08/21/16 08:28 Lansoprazole (Prevacid) 30 mg Q12HR GT 08/21/16 21:00 09/20/16 20:59 Levetiracetam (Keppra) 1,500 mg Q12HR GT 08/18/16 21:00 09/17/16 20:59 08/21/16 08:38 Lorazepam (Ativan 2mg/ml 1ml) 2 mg EVERY 2 HOURS PRN IV For Anxiety 08/18/16 15:45 08/25/16 15:44 Morphine Sulfate (Morphine Sulfate) 4 mg EVERY 4 HOURS PRN IVP Severe Pain (Pain Scale 7-10) 08/18/16 15:45 08/25/16 15:44 08/21/16 08:41 Ondansetron HCl (Zofran) 4 mg Q6H PRN IVP Nausea & Vomiting 08/18/16 15:45 09/17/16 15:44 Pantoprazole (Protonix) 40 mg EVERY 12 HOURS IVP 08/19/16 12:00 08/21/16 12:00 08/21/16 09:00 Polyethylene Glycol (Miralax) 17 gm DAILYPRN PRN GT Constipation 08/20/16 12:40 09/17/16 15:44 Rifaximin (Xifaxan) 550 mg EVERY 12 HOURS GT 08/20/16 12:40 08/26/16 11:59 08/21/16 08:29 Sodium Chloride (0.45% NS 1000ml) 1,000 ml @ 75 mls/hr [id number] IV 08/18/16 17:00 09/17/16 16:59 08/20/16 20:53 Vitamin A/Vitamin D (A & D Oint) 1 applic EVERY 12 HOURS TOPIC 08/18/16 21:00 09/17/16 20:59 08/21/16 09:00 Vitamin A/Vitamin D (A & D Oint) 1 applic EVERY 12 HOURS TOPIC 08/19/16 12:30 09/18/16 12:29 08/21/16 08:44 DANTE HSIEH Aug 21, 2016 10:34
--- NOTE | 2016-08-21 11:16 | Infectious Diseases Prog Note ---
Assessment/Plan Assessment/Plan ASSESSMENT: 56 y/o male with: // no evid of sepsis , // Ascites , Sp paracentesis : no evid of SBP // hx of recurrent HCAP / VAP - - SCx PSA and Pr. Mirabilis, P mirabilis and KPC // Hx of Polymicrobial ( MRSA, M.morganii ,PSA ) bacteremia 06/02 , repeat BCx :neg , SP Rx - TTE(-) SBE // Hx of recurrent UTI - UCx : ESBL EColi ( Colonizer ) // Stage IV sacral debuitus ulcer // HCV Ab+ // Negative HIV // Elev Alk Ph: - HIDA scan :neg 07/15 // Afebrile without leukocytosis // Elevated ESR, CRP // H. pylori based on last endoscopy. plan to treat when the patient gets discharged as per GI // SP EGD/Banding 08/20 // SP paracentesis : no evid of SBP // GI bleed , SP EGD 07/22 : Esophagus ulceration on the band and severe portal hypertensive gastropathy. // Chronic liver disease / cirrhosis with elevated LFTs, US : GB wall thickening ( probably 2nd to ascites ) CT: Liver cirrhosis with stigmata of portal hypertension // Chronic VDRF SP trach, PEG // h/o CVA // [facility] resident // MDRO colonized // NKDA // Full Code PLAN: - monitor pt off of AB Rx 08/20 SP IV Vanco and Zosyn d # 2 07/28 SP Merrem and Colistin INH d# 7 / - monitor CBC, temperatures - monitor BMP - monitor CXR - vent support, trach care, aspiration precaution - Monitor Cx ( Bl, Sp ) - wound care Subjective Constitutional: Denies: anorexia, chills, drenching sweats, fatigue, fever, no symptoms, other Allergies: Coded Allergies: No Known Allergies (Unverified , 06/09/16) Objective Vital Signs Last 24 Hour Vital Signs Date Time Temp Pulse Resp B/P Pulse Ox O2 Delivery O2 Flow Rate FiO2 08/21/16 08:57 68 16 30 08/21/16 08:00 97.6 71 14 103/53 100 Mechanical Ventilator 35 08/21/16 08:00 35 08/21/16 08:00 72 08/21/16 06:57 72 16 30 08/21/16 06:56 6/23/17 05:10 70 16 30 08/21/16 04:00 97.9 73 17 106/75 100 Mechanical Ventilator 35 08/21/16 04:00 62 08/21/16 04:00 35 08/21/16 02:58 71 14 30 08/21/16 01:00 68 15 30 08/21/16 00:00 35 08/21/16 00:00 70 08/21/16 00:00 97.6 72 18 111/55 100 Mechanical Ventilator 35 08/20/16 23:59 70 16 30 08/20/16 21:11 73 18 30 08/20/16 20:07 97.4 79 17 100/52 100 Mechanical Ventilator 35 08/20/16 20:00 72 08/20/16 20:00 35 08/20/16 19:23 75 18 30 08/20/16 16:43 77 18 30 08/20/16 16:00 68 08/20/16 16:00 35 08/20/16 15:55 97.1 69 15 106/53 100 Mechanical Ventilator 35 08/20/16 15:30 96.8 08/20/16 14:36 79 18 30 08/20/16 12:55 70 18 30 08/20/16 12:03 74 14 100 08/20/16 12:02 74 14 100 08/20/16 12:00 96.8 80 16 92/51 99 Mechanical Ventilator 35 08/20/16 12:00 77 08/20/16 12:00 35 Height (Feet): 5 Height (Inches): 8.00 Weight (Pounds): 160 HEENT: anicteric Respiratory/Chest: no accessory muscle use Cardiovascular: regular rhythm Abdomen: no organomegaly Microbiology Date/Time Source Procedure Growth Status 08/18/16 11:45 Blood Blood Culture - Preliminary NO GROWTH AFTER 48 HOURS Resulted 08/18/16 11:30 Blood Blood Culture - Preliminary NO GROWTH AFTER 48 HOURS Resulted 08/19/16 16:30 Ascities Fluid Gram Stain - Final Resulted 08/19/16 16:30 Ascities Fluid Body Fluid Culture - Preliminary NO GROWTH Resulted 08/18/16 11:20 Urine,Clean Catch Urine Culture - Final Escherichia Coli - Esbl Complete Laboratory Tests Test 08/21/16 03:35 08/21/16 09:35 White Blood Count 5.7 K/UL (4.8-10.8) Red Blood Count 2.68 M/UL (4.70-6.10) L Hemoglobin 8.5 G/DL (14.2-18.0) L Hematocrit 25.4 % (42.0-52.0) L Mean Corpuscular Volume 95 FL (80-99) Mean Corpuscular Hemoglobin 31.5 PG (27.0-31.0) H Mean Corpuscular Hemoglobin Concent 33.3 G/DL (32.0-36.0) Red Cell Distribution Width 17.6 % (11.6-14.8) H Platelet Count 115 K/UL (150-450) L Mean Platelet Volume 5.3 FL (6.5-10.1) L Neutrophils (%) (Auto) 75.0 % (45.0-75.0) Lymphocytes (%) (Auto) 7.9 % (20.0-45.0) L Monocytes (%) (Auto) 10.6 % (1.0-10.0) H Eosinophils (%) (Auto) 4.7 % (0.0-3.0) H Basophils (%) (Auto) 1.8 % (0.0-2.0) Prothrombin Time 13.8 SEC (9.30-11.50) H Prothromb Time International Ratio 1.3 (0.9-1.1) H Activated Partial Thromboplast Time 37 SEC (23-33) H Sodium Level 126 mEQ/L (135-145) L Potassium Level 3.5 mEQ/L (3.4-4.9) Chloride Level 90 mEQ/L (98-107) L Carbon Dioxide Level 23 mEQ/L (20-30) Anion Gap 13 (5-15) Blood Urea Nitrogen 13 mg/dL (7-23) Creatinine 0.3 mg/dL (0.7-1.2) L Estimat Glomerular Filtration Rate > 60 mL/min (>60) Glucose Level 85 mg/dL (74-106) Calcium Level 7.1 mg/dL (8.6-10.2) L Phosphorus Level 2.7 mg/dL (2.5-4.8) Magnesium Level 1.8 mg/dL (1.7-2.5) Total Bilirubin 1.2 mg/dL (0.0-1.2) Direct Bilirubin 0.5 mg/dL (0.1-0.3) H Aspartate Amino Transf (AST/SGOT) 21 U/L (5-40) Alanine Aminotransferase (ALT/SGPT) 9 U/L (3-41) Alkaline Phosphatase 177 U/L (40-129) H Total Protein 5.7 g/dL (6.6-8.7) L Albumin 1.6 g/dL (3.5-5.2) L Globulin 4.1 g/dL Albumin/Globulin Ratio 0.3 (1.0-2.7) L Vancomycin Level Trough 5.6 ug/mL (5.0-12.0) Current Medications Medications (Trade) Dose Ordered Sig/Hair Route PRN Reason Start Time Stop Time Status Last Admin Dose Admin Acetaminophen (Tylenol) 650 mg Q4H PRN ORAL FEVER 08/18/16 15:45 09/17/16 15:44 Albuterol/ Ipratropium 3 ml 3 ml EVERY 4 HOURS PRN HHN Shortness of Breath 08/18/16 15:45 08/23/16 15:44 Chlorhexidine Gluconate (Tatum-Hex 2%) 1 applic HSPRN TOPIC 08/20/16 21:00 09/19/16 20:59 Dextrose (Dextrose 50%) STAT PRN IV Hypoglycemia 08/18/16 15:45 09/17/16 15:44 Furosemide (Lasix) 20 mg DAILY GT 08/19/16 09:00 09/18/16 08:59 08/21/16 08:29 Lactulose (Cephulac) 20 gm BID GT 08/20/16 12:40 09/18/16 11:59 08/21/16 08:28 Lansoprazole (Prevacid) 30 mg Q12HR GT 08/21/16 21:00 09/20/16 20:59 Levetiracetam (Keppra) 1,500 mg Q12HR GT 08/18/16 21:00 09/17/16 20:59 08/21/16 08:38 Lorazepam (Ativan 2mg/ml 1ml) 2 mg EVERY 2 HOURS PRN IV For Anxiety 08/18/16 15:45 08/25/16 15:44 Morphine Sulfate (Morphine Sulfate) 4 mg EVERY 4 HOURS PRN IVP Severe Pain (Pain Scale 7-10) 08/18/16 15:45 08/25/16 15:44 08/21/16 08:41 Ondansetron HCl (Zofran) 4 mg Q6H PRN IVP Nausea & Vomiting 08/18/16 15:45 09/17/16 15:44 Pantoprazole (Protonix) 40 mg EVERY 12 HOURS IVP 08/19/16 12:00 08/21/16 12:00 08/21/16 09:00 Polyethylene Glycol (Miralax) 17 gm DAILYPRN PRN GT Constipation 08/20/16 12:40 09/17/16 15:44 Rifaximin (Xifaxan) 550 mg EVERY 12 HOURS GT 08/20/16 12:40 08/26/16 11:59 08/21/16 08:29 Sodium Chloride (0.45% NS 1000ml) 1,000 ml @ 75 mls/hr [id number] IV 08/18/16 17:00 09/17/16 16:59 08/20/16 20:53 Vitamin A/Vitamin D (A & D Oint) 1 applic EVERY 12 HOURS TOPIC 08/18/16 21:00 09/17/16 20:59 08/21/16 09:00 Vitamin A/Vitamin D (A & D Oint) 1 applic EVERY 12 HOURS TOPIC 08/19/16 12:30 09/18/16 12:29 08/21/16 08:44 SHARRI RAMÍREZ M.D. Aug 21, 2016 11:16
[2016-08-21 12:00] VITALS: BP 112/80
--- NOTE | 2016-08-21 12:00 | Procedure Note ---
DATE OF PROCEDURE: 08/20/2016 PROCEDURE: Endoscopy with banding of esophageal varices. SURGEON: Anthony Arndt M.D. ANESTHESIOLOGIST: Cherrie JIMENEZ. INSTRUMENT: Olympus adult flexible upper endoscope. INDICATION: 1. Gastrointestinal bleeding. 2. History of cirrhosis. 3. History of esophageal varices. REASON FOR PROCEDURE: The procedure, risks, benefits, and possible consequences, including hemorrhage, aspiration, perforation and infection, and alternative treatments, were explained to the patient/legal guardian by Dr. Anthony Arndt and the patient/legal guardian understood and accepted these risks. DESCRIPTION OF PROCEDURE: After informed consent was obtained and the patient was adequately sedated, the Olympus upper endoscope was advanced from mouth into the second portion of the duodenum and retroflexion was performed in the stomach. The patient had evidence of four columns of esophageal varices. Grade 3. At this time, the upper endoscope was retrieved and banding device was placed, a total of 4 bands were placed in the distal esophagus without any complications. The patient tolerated the procedure well without any complications. SUMMARY OF FINDINGS: Esophageal varices with banding. RECOMMENDATIONS: Follow laboratories. Monitor hemoglobin and hematocrit and transfuse as needed. Resume tube feeding. Anthony Arndt M.D. DR: RAFAL JOB#: [id number] CC:
--- NOTE | 2016-08-21 12:50 | GI Progress Note ---
Assessment/Plan Problems: (1) Esophageal varices determined by endoscopy ICD Codes: I85.00 - Esophageal varices without bleeding SNOMED: 49228155, 094458611 (2) Ascites ICD Codes: R18.8 - Other ascites SNOMED: 304276562 Qualifiers: Qualified Codes: R18.8 - Other ascites (3) Anemia ICD Codes: D64.9 - Anemia, unspecified SNOMED: 688921793 Qualifiers: Qualified Codes: D64.9 - Anemia, unspecified (4) Hepatic encephalopathy ICD Codes: K72.90 - Hepatic failure, unspecified without coma SNOMED: 15975409 (5) hep c (6) Feeding by G-tube ICD Codes: Z93.1 - Gastrostomy status SNOMED: 662140442, 559499938 (7) Liver cirrhosis ICD Codes: K74.60 - Unspecified cirrhosis of liver SNOMED: 41725756 Status: unchanged Status Narrative Discussed with Dr. Arndt. Assessment/Plan s/p EGD with banding of EV s/p paracentesis >> yielding 9.7 liters >> r/o SBP monitor H&H, transfuse prn cont lactulose + Xifaxan GTF per dietary prevacid BID fu labs Subjective Subjective limited Objective Last 24 Hour Vital Signs Date Time Temp Pulse Resp B/P Pulse Ox O2 Delivery O2 Flow Rate FiO2 08/21/16 12:30 35 08/21/16 12:00 64 08/21/16 11:17 68 16 30 08/21/16 08:57 68 16 30 08/21/16 08:00 97.6 71 14 103/53 100 Mechanical Ventilator 35 08/21/16 08:00 35 08/21/16 08:00 72 08/21/16 06:57 72 16 30 08/21/16 06:56 08/21/16 05:10 70 16 30 08/21/16 04:00 97.9 73 17 106/75 100 Mechanical Ventilator 35 08/21/16 04:00 62 08/21/16 04:00 35 08/21/16 02:58 71 14 30 08/21/16 01:00 68 15 30 08/21/16 00:00 35 08/21/16 00:00 70 08/21/16 00:00 97.6 72 18 111/55 100 Mechanical Ventilator 35 08/20/16 23:59 70 16 30 08/20/16 21:11 73 18 30 08/20/16 20:07 97.4 79 17 100/52 100 Mechanical Ventilator 35 08/20/16 20:00 72 08/20/16 20:00 35 08/20/16 19:23 75 18 30 08/20/16 16:43 77 18 30 08/20/16 16:00 68 08/20/16 16:00 35 08/20/16 15:55 97.1 69 15 106/53 100 Mechanical Ventilator 35 08/20/16 15:30 96.8 08/20/16 14:36 79 18 30 08/20/16 12:55 70 18 30 Intake and Output 08/20/16 08/21/16 19:00 07:00 Intake Total 1751.250 ml 1333.75 ml Output Total 450 ml 500 ml Balance 1301.250 ml 833.75 ml Free Water 100 ml 150 ml IV Total 1251.250 ml 833.75 ml Tube Feeding 150 ml 350 ml Blood Product 250 ml Output Urine Total 450 ml 500 ml Laboratory Tests Test 08/21/16 03:35 08/21/16 09:35 White Blood Count 5.7 K/UL (4.8-10.8) Red Blood Count 2.68 M/UL (4.70-6.10) L Hemoglobin 8.5 G/DL (14.2-18.0) L Hematocrit 25.4 % (42.0-52.0) L Mean Corpuscular Volume 95 FL (80-99) Mean Corpuscular Hemoglobin 31.5 PG (27.0-31.0) H Mean Corpuscular Hemoglobin Concent 33.3 G/DL (32.0-36.0) Red Cell Distribution Width 17.6 % (11.6-14.8) H Platelet Count 115 K/UL (150-450) L Mean Platelet Volume 5.3 FL (6.5-10.1) L Neutrophils (%) (Auto) 75.0 % (45.0-75.0) Lymphocytes (%) (Auto) 7.9 % (20.0-45.0) L Monocytes (%) (Auto) 10.6 % (1.0-10.0) H Eosinophils (%) (Auto) 4.7 % (0.0-3.0) H Basophils (%) (Auto) 1.8 % (0.0-2.0) Prothrombin Time 13.8 SEC (9.30-11.50) H Prothromb Time International Ratio 1.3 (0.9-1.1) H Activated Partial Thromboplast Time 37 SEC (23-33) H Sodium Level 126 mEQ/L (135-145) L Potassium Level 3.5 mEQ/L (3.4-4.9) Chloride Level 90 mEQ/L (98-107) L Carbon Dioxide Level 23 mEQ/L (20-30) Anion Gap 13 (5-15) Blood Urea Nitrogen 13 mg/dL (7-23) Creatinine 0.3 mg/dL (0.7-1.2) L Estimat Glomerular Filtration Rate > 60 mL/min (>60) Glucose Level 85 mg/dL (74-106) Calcium Level 7.1 mg/dL (8.6-10.2) L Phosphorus Level 2.7 mg/dL (2.5-4.8) Magnesium Level 1.8 mg/dL (1.7-2.5) Total Bilirubin 1.2 mg/dL (0.0-1.2) Direct Bilirubin 0.5 mg/dL (0.1-0.3) H Aspartate Amino Transf (AST/SGOT) 21 U/L (5-40) Alanine Aminotransferase (ALT/SGPT) 9 U/L (3-41) Alkaline Phosphatase 177 U/L (40-129) H Total Protein 5.7 g/dL (6.6-8.7) L Albumin 1.6 g/dL (3.5-5.2) L Globulin 4.1 g/dL Albumin/Globulin Ratio 0.3 (1.0-2.7) L Vancomycin Level Trough 5.6 ug/mL (5.0-12.0) Height (Feet): 5 Height (Inches): 8.00 Weight (Pounds): 160 General Appearance: no apparent distress, alert Cardiovascular: normal rate Respiratory/Chest: no respiratory distress, other - mech vent Abdominal Exam: site - c/d/i Paulette Romero N.P. Aug 21, 2016 12:50
[2016-08-21 16:00] VITALS: BP 109/61
[2016-08-21 20:00] VITALS: BP 120/61
[2016-08-22] VITALS: BP 145/80
[2016-08-22 04:00] VITALS: BP 122/62
[2016-08-22 06:34] LABS: MEAN CORPUSCULAR HEMOGLOBIN 32.7 PG (27.0-31.0); MEAN CORPUSCULAR HGB CONC 33.4 G/DL (32.0-36.0); MEAN CORPUSCULAR VOLUME 98 FL (80-99); MEAN PLATELET VOLUME 6.2 FL (6.5-10.1); PLATELET COUNT 113 K/UL (150-450); RED BLOOD COUNT 2.67 M/UL (4.70-6.10); RED CELL DISTRIBUTION WIDTH 17.7 % (11.6-14.8); WHITE BLOOD COUNT 10.3 K/UL (4.8-10.8)
[2016-08-22 07:18] LABS: ANION GAP 15 (5-15); CALCIUM 7.6 mg/dL (8.6-10.2); CARBON DIOXIDE 21 mEQ/L (20-30); CHLORIDE 90 mEQ/L (98-107); CREATININE 0.4 mg/dL (0.7-1.2); GLOMERULAR FILTRATION RATE > 60 mL/min (>60); HEMOLYSIS 8; POTASSIUM 3.5 mEQ/L (3.4-4.9); SODIUM 126 mEQ/L (135-145)
[2016-08-22 08:00] VITALS: BP 134/60
--- NOTE | 2016-08-22 08:34 | General Progress Note ---
Assessment/Plan Problem List: (1) Ascites ICD Codes: R18.8 - Other ascites SNOMED: 694612614 Qualifiers: Qualified Codes: R18.8 - Other ascites (2) Anemia ICD Codes: D64.9 - Anemia, unspecified SNOMED: 301524093 Qualifiers: Qualified Codes: D64.9 - Anemia, unspecified (3) Hepatic encephalopathy ICD Codes: K72.90 - Hepatic failure, unspecified without coma SNOMED: 75009809 (4) hep c (5) Esophageal varices determined by endoscopy ICD Codes: I85.00 - Esophageal varices without bleeding SNOMED: 11782048, 985958277 (6) Feeding by G-tube ICD Codes: Z93.1 - Gastrostomy status SNOMED: 836458579, 311280190 (7) Liver cirrhosis ICD Codes: K74.60 - Unspecified cirrhosis of liver SNOMED: 87797076 Assessment/Plan GTF fu H&H prn blood transfusion prn paracentesis Subjective ROS Limited/Unobtainable: No Allergies: Coded Allergies: No Known Allergies (Unverified , 06/09/16) Objective Last 24 Hour Vital Signs Date Time Temp Pulse Resp B/P Pulse Ox O2 Delivery O2 Flow Rate FiO2 08/22/16 08:00 98.3 80 27 134/60 97 Mechanical Ventilator 35 08/22/16 07:06 54 27 35 08/22/16 05:00 65 25 30 08/22/16 04:00 48 08/22/16 04:00 35 08/22/16 04:00 98.6 81 27 122/62 99 08/22/16 03:19 49 21 30 08/22/16 01:06 52 26 30 08/22/16 00:00 35 08/22/16 00:00 116 08/22/16 00:00 98.6 110 17 145/80 97 08/21/16 23:29 89 18 30 08/21/16 23:20 98.6 08/21/16 21:13 93 18 30 08/21/16 20:00 77 08/21/16 20:00 97.7 93 17 120/61 96 08/21/16 20:00 35 08/21/16 19:35 84 16 30 08/21/16 16:41 89 20 30 08/21/16 16:00 98.1 94 16 109/61 98 Mechanical Ventilator 08/21/16 16:00 35 08/21/16 16:00 68 08/21/16 15:08 72 16 30 08/21/16 13:12 71 15 30 08/21/16 12:30 35 08/21/16 12:00 64 08/21/16 12:00 98.0 84 16 112/80 97 Mechanical Ventilator 35 08/21/16 11:17 68 16 30 08/21/16 08:57 68 16 30 Intake and Output 08/21/16 08/22/16 19:00 07:00 Intake Total 1630 ml 910 ml Output Total 525 ml 650 ml Balance 1105 ml 260 ml Free Water 450 ml 100 ml IV Total 30 ml 360 ml Tube Feeding 600 ml 450 ml Other 550 ml Output Urine Total 525 ml 650 ml # Bowel Movements 1 Laboratory Tests 08/21/16 09:35: Vancomycin Level Trough 5.6 08/22/16 04:00: White Blood Count 10.3#, Red Blood Count 2.67L, Hemoglobin 8.7L, Hematocrit 26.1L, Mean Corpuscular Volume 98, Mean Corpuscular Hemoglobin 32.7H, Mean Corpuscular Hemoglobin Concent 33.4, Red Cell Distribution Width 17.7H, Platelet Count 113L, Mean Platelet Volume 6.2L, Neutrophils (%) (Auto) , Lymphocytes (%) (Auto) , Monocytes (%) (Auto) , Eosinophils (%) (Auto) , Basophils (%) (Auto) , Neutrophils % (Manual) [Pending], Lymphocytes % (Manual) [Pending], Platelet Estimate [Pending], Platelet Morphology [Pending], Sodium Level 126L, Potassium Level 3.5, Chloride Level 90L, Carbon Dioxide Level 21, Anion Gap 15, Blood Urea Nitrogen 11, Creatinine 0.4L, Estimat Glomerular Filtration Rate > 60, Glucose Level 119H, Calcium Level 7.6L Height (Feet): 5 Height (Inches): 8.00 Weight (Pounds): 160 General Appearance: no apparent distress EENT: normal ENT inspection Neck: supple Cardiovascular: normal rate Respiratory/Chest: decreased breath sounds Abdomen: normal bowel sounds, non tender, soft Extremities: non-tender BRIA VELASQUEZ Aug 22, 2016 08:34
[2016-08-22] MEDS: Ascorbic Acid 500mg tab ORAL SCH (09:08)
[2016-08-22] MEDS: Rifaximin 550mg tab GT SCH ×2 (09:08→20:37)
[2016-08-22] MEDS: levETIRAcetam 500mg/5ml Liquid GT SCH ×2 (09:08→20:37)
[2016-08-22] MEDS: Spironolactone 50mg tab ORAL SCH (09:08)
[2016-08-22] MEDS: Lactulose 20gm/30ml UDC GT SCH ×2 (09:08→18:22)
[2016-08-22] MEDS: Morphine Sulfate 4mg/ml Inj IVP PRN (10:27)
[2016-08-22] MEDS: Vitamin A&D Oint 2oz Tube TOPIC SCH ×4 (10:28→20:38)
[2016-08-22 12:00] VITALS: BP 102/47
[2016-08-22] MEDS: LORazepam Inj 2mg/ml 1ml IV PRN ×2 (12:36→19:32)
[2016-08-22 13:45] LABS: EOSINOPHILS % (MANUAL) 2 % (0-3); LYMPHOCYTES % (MANUAL) 7 % (20-45); NEUTROPHILS % (MANUAL) 86 % (45-75); TOTAL CELLS COUNTED 100
[2016-08-22 13:46] LABS: ANISOCYTOSIS 1+; BAND NEUTROPHILS % (MANUAL) 0 % (0-8); BASOPHILS % (MANUAL) 0 % (0-2); HYPOCHROMASIA 2+; PLATELET ESTIMATE DECREASED; PLATELET MORPHOLOGY NORMAL
[2016-08-22] MEDS ORDERED: NS 275ml ONE (14:43)
[2016-08-22 16:00] VITALS: BP 138/76
--- NOTE | 2016-08-22 16:48 | Pulmonology Progress Note ---
Assessment/Plan Problems: (1) Altered level of consciousness (2) Sepsis (3) Liver cirrhosis (4) Feeding by G-tube (5) hep c (6) Ascites Assessment/Plan paracentesis done, egd with banding done pt needs permanent catheter to drain the fluid check ammonia level, [place] cultures gtube feeding dvt prophylaxis continue abx Subjective ROS Limited/Unobtainable: No Allergies: Coded Allergies: No Known Allergies (Unverified , 06/09/16) Objective Last 24 Hour Vital Signs Date Time Temp Pulse Resp B/P Pulse Ox O2 Delivery O2 Flow Rate FiO2 08/22/16 14:58 96 18 35 08/22/16 12:35 51 16 35 08/22/16 12:00 98.6 55 21 102/47 97 Mechanical Ventilator 35 08/22/16 12:00 35 08/22/16 12:00 116 08/22/16 10:47 51 16 35 08/22/16 09:04 48 21 35 08/22/16 08:00 98.3 80 27 134/60 97 Mechanical Ventilator 35 08/22/16 08:00 35 08/22/16 08:00 53 08/22/16 07:06 54 27 35 08/22/16 05:00 65 25 30 08/22/16 04:00 48 08/22/16 04:00 35 08/22/16 04:00 98.6 81 27 122/62 99 08/22/16 03:19 49 21 30 08/22/16 01:06 52 26 30 08/22/16 00:00 35 08/22/16 00:00 116 08/22/16 00:00 98.6 110 17 145/80 97 08/21/16 23:29 89 18 30 08/21/16 23:20 98.6 08/21/16 21:13 93 18 30 08/21/16 20:00 77 08/21/16 20:00 97.7 93 17 120/61 96 08/21/16 20:00 35 08/21/16 19:35 84 16 30 Intake and Output 08/21/16 08/22/16 19:00 07:00 Intake Total 1630 ml 910 ml Output Total 525 ml 650 ml Balance 1105 ml 260 ml Free Water 450 ml 100 ml IV Total 30 ml 360 ml Tube Feeding 600 ml 450 ml Other 550 ml Output Urine Total 525 ml 650 ml # Bowel Movements 1 Objective paracentesis on 08/19 yielding 9 liters of ascitic fluid. General Appearance: cachetic HEENT: normocephalic, atraumatic Respiratory/Chest: chest wall non-tender, lungs clear Cardiovascular: normal peripheral pulses Abdomen: normal bowel sounds Genitourinary: normal external genitalia Extremities: no cyanosis Laboratory Tests 08/22/16 04:00: White Blood Count 10.3#, Red Blood Count 2.67L, Hemoglobin 8.7L, Hematocrit 26.1L, Mean Corpuscular Volume 98, Mean Corpuscular Hemoglobin 32.7H, Mean Corpuscular Hemoglobin Concent 33.4, Red Cell Distribution Width 17.7H, Platelet Count 113L, Mean Platelet Volume 6.2L, Neutrophils (%) (Auto) , Lymphocytes (%) (Auto) , Monocytes (%) (Auto) , Eosinophils (%) (Auto) , Basophils (%) (Auto) , Differential Total Cells Counted 100, Neutrophils % ( Manual) 86H, Lymphocytes % (Manual) 7L, Monocytes % (Manual) 5, Eosinophils % ( Manual) 2, Basophils % (Manual) 0, Band Neutrophils 0, Platelet Estimate DecreasedL, Platelet Morphology Normal, Hypochromasia 2+, Anisocytosis 1+, Sodium Level 126L, Potassium Level 3.5, Chloride Level 90L, Carbon Dioxide Level 21, Anion Gap 15, Blood Urea Nitrogen 11, Creatinine 0.4L, Estimat Glomerular Filtration Rate > 60, Glucose Level 119H, Calcium Level 7.6L Current Medications Medications (Trade) Dose Ordered Sig/Hair Route PRN Reason Start Time Stop Time Status Last Admin Dose Admin Acetaminophen (Tylenol) 650 mg Q4H PRN ORAL FEVER 08/18/16 15:45 09/17/16 15:44 Albuterol/ Ipratropium (DuoNeb 0.5-3(2.5)mg/3ml) 3 ml EVERY 4 HOURS PRN HHN Shortness of Breath 08/18/16 15:45 08/23/16 15:44 Ascorbic Acid (Vitamin C) 500 mg DAILY ORAL 08/22/16 09:00 09/21/16 08:59 08/22/16 09:08 Chlorhexidine Gluconate (Tatum-Hex 2%) 1 applic HSPRN TOPIC 08/20/16 21:00 09/19/16 20:59 08/21/16 17:01 Dextrose (Dextrose 50%) STAT PRN IV Hypoglycemia 08/18/16 15:45 09/17/16 15:44 Furosemide (Lasix) 20 mg DAILY GT 08/19/16 09:00 09/18/16 08:59 08/22/16 09:08 Lactulose (Cephulac) 20 gm BID GT 08/20/16 12:40 09/18/16 11:59 08/22/16 09:08 Lansoprazole (Prevacid) 30 mg Q12HR GT 08/21/16 21:00 09/20/16 20:59 08/22/16 09:08 Levetiracetam (Keppra) 1,500 mg Q12HR GT 08/18/16 21:00 09/17/16 20:59 08/22/16 09:08 Lorazepam (Ativan 2mg/ml 1ml) 2 mg EVERY 2 HOURS PRN IV For Anxiety 08/18/16 15:45 08/25/16 15:44 08/22/16 12:36 Morphine Sulfate (Morphine Sulfate) 4 mg EVERY 4 HOURS PRN IVP Severe Pain (Pain Scale 7-10) 08/18/16 15:45 08/25/16 15:44 08/22/16 10:27 Ondansetron HCl (Zofran) 4 mg Q6H PRN IVP Nausea & Vomiting 08/18/16 15:45 09/17/16 15:44 Polyethylene Glycol (Miralax) 17 gm DAILYPRN PRN GT Constipation 08/20/16 12:40 09/17/16 15:44 Rifaximin (Xifaxan) 550 mg EVERY 12 HOURS GT 08/20/16 12:40 08/26/16 11:59 08/22/16 09:08 Spironolactone (Aldactone) 100 mg DAILY ORAL 08/22/16 09:00 09/21/16 08:59 08/22/16 09:08 Vitamin A/Vitamin D (A & D Oint) 1 applic EVERY 12 HOURS TOPIC 08/18/16 21:00 09/17/16 20:59 08/22/16 10:28 Vitamin A/Vitamin D (A & D Oint) 1 applic EVERY 12 HOURS TOPIC 08/19/16 12:30 09/18/16 12:29 08/22/16 10:28 DANTE HSIEH Aug 22, 2016 16:48
[2016-08-22 20:00] VITALS: BP 116/70
[2016-08-23] VITALS (7 sets, daily range): BP systolic 100–132; BP diastolic 61–95
--- NOTE | 2016-08-23 08:31 | General Progress Note ---
Assessment/Plan Problem List: (1) Ascites ICD Codes: R18.8 - Other ascites SNOMED: 889474664 Qualifiers: Qualified Codes: R18.8 - Other ascites (2) Anemia ICD Codes: D64.9 - Anemia, unspecified SNOMED: 293800274 Qualifiers: Qualified Codes: D64.9 - Anemia, unspecified (3) Hepatic encephalopathy ICD Codes: K72.90 - Hepatic failure, unspecified without coma SNOMED: 83338238 (4) hep c (5) Esophageal varices determined by endoscopy ICD Codes: I85.00 - Esophageal varices without bleeding SNOMED: 16228415, 365071287 (6) Feeding by G-tube ICD Codes: Z93.1 - Gastrostomy status SNOMED: 140068028, 718591024 (7) Liver cirrhosis ICD Codes: K74.60 - Unspecified cirrhosis of liver SNOMED: 01082777 Assessment/Plan GTF fu H&H prn blood transfusion prn paracentesis Subjective ROS Limited/Unobtainable: No Allergies: Coded Allergies: No Known Allergies (Unverified , 06/09/16) Objective Last 24 Hour Vital Signs Date Time Temp Pulse Resp B/P Pulse Ox O2 Delivery O2 Flow Rate FiO2 08/23/16 07:08 110 23 35 08/23/16 05:23 124 26 35 08/23/16 04:00 118 08/23/16 04:00 98.2 121 20 105/95 98 Mechanical Ventilator 35 08/23/16 04:00 35 08/23/16 03:11 120 22 35 08/23/16 01:09 116 24 35 08/23/16 00:00 98.2 120 20 116/68 97 Mechanical Ventilator 35 08/23/16 00:00 131 08/23/16 00:00 35 08/22/16 23:00 126 25 35 08/22/16 21:10 125 22 35 08/22/16 20:00 97.7 122 20 116/70 98 Mechanical Ventilator 35 08/22/16 20:00 35 08/22/16 20:00 122 08/22/16 19:27 129 26 35 08/22/16 16:43 122 26 35 08/22/16 16:00 97.7 122 24 138/76 98 Mechanical Ventilator 35 08/22/16 16:00 102 08/22/16 16:00 35 08/22/16 14:58 96 18 35 08/22/16 12:35 51 16 35 08/22/16 12:00 98.6 55 21 102/47 97 Mechanical Ventilator 35 08/22/16 12:00 35 08/22/16 12:00 116 08/22/16 10:47 51 16 35 08/22/16 09:04 48 21 35 Intake and Output 08/22/16 08/23/16 19:00 07:00 Intake Total 700 ml 700 ml Output Total 200 ml 350 ml Balance 500 ml 350 ml Free Water 100 ml 100 ml Tube Feeding 600 ml 600 ml Output Urine Total 200 ml 350 ml # Bowel Movements 2 Height (Feet): 5 Height (Inches): 8.00 Weight (Pounds): 160 General Appearance: no apparent distress EENT: normal ENT inspection Neck: supple Cardiovascular: regular rhythm Respiratory/Chest: decreased breath sounds Abdomen: normal bowel sounds, non tender, soft Extremities: non-tender BRIA VELASQUEZ Aug 23, 2016 08:31
--- NOTE | 2016-08-23 08:42 | Infectious Diseases Prog Note ---
Assessment/Plan Assessment/Plan ASSESSMENT: 56 y/o male with: // no evid of sepsis , // Ascites , Sp paracentesis : no evid of SBP // hx of recurrent HCAP / VAP - SCx PSA and Pr. Mirabilis, P mirabilis and KPC // Hx of Polymicrobial ( MRSA, M.morganii ,PSA ) bacteremia 06/02 SP Rx - surveillance BCx NGTD - TTE(-) SBE // Hx of recurrent UTI - UCx : ESBL EColi ( Colonizer ) // Stage IV sacral debuitus ulcer // HCV Ab+ // Negative HIV // Elev Alk Ph: - HIDA scan :neg 07/15 // Afebrile without leukocytosis // Elevated ESR, CRP // H. pylori based on last endoscopy. plan to treat when the patient gets discharged as per GI // GI bleed , SP EGD 07/22 : Esophagus ulceration on the band and severe portal hypertensive gastropathy. - SP EGD/Banding 08/20 // Chronic liver disease / cirrhosis with elevated LFTs, US : GB wall thickening ( probably 2nd to ascites ) CT: Liver cirrhosis with stigmata of portal hypertension // Chronic VDRF SP trach, PEG // h/o CVA // [facility] resident // MDRO colonized // NKDA // Full Code PLAN: - monitor pt off of AB Rx 08/20 SP IV Vanco and Zosyn d # 2 07/28 SP Merrem and Colistin INH d# - f/u final cultures - monitor CBC, temperatures - monitor BMP - monitor CXR - vent support, trach care, aspiration precaution - wound care Subjective Allergies: Coded Allergies: No Known Allergies (Unverified , 06/09/16) Subjective remains afebrile on vent Objective Vital Signs Last 24 Hour Vital Signs Date Time Temp Pulse Resp B/P Pulse Ox O2 Delivery O2 Flow Rate FiO2 08/23/16 07:08 110 23 35 08/23/16 05:23 124 26 35 08/23/16 04:00 118 08/23/16 04:00 98.2 121 20 105/95 98 Mechanical Ventilator 35 08/23/16 04:00 35 08/23/16 03:11 120 22 35 08/23/16 01:09 116 24 35 08/23/16 00:00 98.2 120 20 116/68 97 Mechanical Ventilator 35 08/23/16 00:00 131 08/23/16 00:00 35 08/22/16 23:00 126 25 35 08/22/16 21:10 125 22 35 08/22/16 20:00 97.7 122 20 116/70 98 Mechanical Ventilator 35 08/22/16 20:00 35 08/22/16 20:00 122 08/22/16 19:27 129 26 35 08/22/16 16:43 122 26 35 08/22/16 16:00 97.7 122 24 138/76 98 Mechanical Ventilator 35 08/22/16 16:00 102 08/22/16 16:00 35 08/22/16 14:58 96 18 35 08/22/16 12:35 51 16 35 08/22/16 12:00 98.6 55 21 102/47 97 Mechanical Ventilator 35 08/22/16 12:00 35 08/22/16 12:00 116 08/22/16 10:47 51 16 35 08/22/16 09:04 48 21 35 Height (Feet): 5 Height (Inches): 8.00 Weight (Pounds): 160 General Appearance: no acute distress HEENT: status post trach Respiratory/Chest: decreased breath sounds Cardiovascular: normal rate, regular rhythm Abdomen: normal bowel sounds, soft, non tender, non distended Current Medications Medications (Trade) Dose Ordered Sig/Hair Route PRN Reason Start Time Stop Time Status Last Admin Dose Admin Acetaminophen (Tylenol) 650 mg Q4H PRN ORAL FEVER 08/18/16 15:45 09/17/16 15:44 Albuterol/ Ipratropium (DuoNeb 0.5-3(2.5)mg/3ml) 3 ml EVERY 4 HOURS PRN HHN Shortness of Breath 08/18/16 15:45 08/23/16 15:44 Ascorbic Acid (Vitamin C) 500 mg DAILY ORAL 08/22/16 09:00 09/21/16 08:59 08/22/16 09:08 Chlorhexidine Gluconate (Tatum-Hex 2%) 1 applic HSPRN TOPIC 08/20/16 21:00 09/19/16 20:59 08/21/16 17:01 Dextrose (Dextrose 50%) STAT PRN IV Hypoglycemia 08/18/16 15:45 09/17/16 15:44 Furosemide (Lasix) 20 mg DAILY GT 08/19/16 09:00 09/18/16 08:59 08/22/16 09:08 Lactulose (Cephulac) 20 gm BID GT 08/20/16 12:40 09/18/16 11:59 08/22/16 18:22 Lansoprazole (Prevacid) 30 mg Q12HR GT 08/21/16 21:00 09/20/16 20:59 08/22/16 20:37 Levetiracetam (Keppra) 1,500 mg Q12HR GT 08/18/16 21:00 09/17/16 20:59 08/22/16 20:37 Lorazepam (Ativan 2mg/ml 1ml) 2 mg EVERY 2 HOURS PRN IV For Anxiety 08/18/16 15:45 08/25/16 15:44 08/22/16 19:32 Morphine Sulfate (Morphine Sulfate) 4 mg EVERY 4 HOURS PRN IVP Severe Pain (Pain Scale 7-10) 08/18/16 15:45 08/25/16 15:44 08/22/16 10:27 Ondansetron HCl (Zofran) 4 mg Q6H PRN IVP Nausea & Vomiting 08/18/16 15:45 09/17/16 15:44 Polyethylene Glycol (Miralax) 17 gm DAILYPRN PRN GT Constipation 08/20/16 12:40 09/17/16 15:44 Rifaximin (Xifaxan) 550 mg EVERY 12 HOURS GT 08/20/16 12:40 08/26/16 11:59 08/22/16 20:37 Spironolactone (Aldactone) 100 mg DAILY ORAL 08/22/16 09:00 09/21/16 08:59 08/22/16 09:08 Vitamin A/Vitamin D (A & D Oint) 1 applic EVERY 12 HOURS TOPIC 08/18/16 21:00 09/17/16 20:59 08/22/16 20:38 Vitamin A/Vitamin D (A & D Oint) 1 applic EVERY 12 HOURS TOPIC 08/19/16 12:30 09/18/16 12:29 08/22/16 20:38 JO CABRERA Aug 23, 2016 08:42
[2016-08-23] MEDS: Lactulose 20gm/30ml UDC GT SCH ×2 (09:49→18:41)
[2016-08-23] MEDS: Rifaximin 550mg tab GT SCH ×2 (09:49→21:00)
[2016-08-23] MEDS: Ascorbic Acid 500mg tab ORAL SCH (09:50)
[2016-08-23] MEDS: Spironolactone 50mg tab ORAL SCH (09:50)
[2016-08-23] MEDS: levETIRAcetam 500mg/5ml Liquid GT SCH ×2 (09:51→21:00)
[2016-08-23] MEDS: Vitamin A&D Oint 2oz Tube TOPIC SCH ×4 (09:52→21:01)
[2016-08-23] MEDS: Morphine Sulfate 4mg/ml Inj IVP PRN (10:18)
--- NOTE | 2016-08-23 12:28 | Pulmonology Progress Note ---
Assessment/Plan Problems: (1) Altered level of consciousness (2) Sepsis (3) Liver cirrhosis (4) Feeding by G-tube (5) hep c (6) Ascites Assessment/Plan paracentesis done, egd with banding done pt needs permanent catheter to drain the fluid check ammonia level, españa cultures gtube feeding dvt prophylaxis continue abx Subjective ROS Limited/Unobtainable: No Constitutional: Reports: no symptoms HEENT: Repors: no symptoms Allergies: Coded Allergies: No Known Allergies (Unverified , 06/09/16) Objective Last 24 Hour Vital Signs Date Time Temp Pulse Resp B/P Pulse Ox O2 Delivery O2 Flow Rate FiO2 08/23/16 12:00 35 08/23/16 10:40 121 26 35 08/23/16 09:10 125 24 35 08/23/16 09:00 35 08/23/16 08:00 117 08/23/16 08:00 99.9 113 23 100/63 100 Mechanical Ventilator 35 08/23/16 07:08 110 23 35 08/23/16 05:23 124 26 35 08/23/16 04:00 118 08/23/16 04:00 98.2 121 20 105/95 98 Mechanical Ventilator 35 08/23/16 04:00 35 08/23/16 03:11 120 22 35 08/23/16 01:09 116 24 35 08/23/16 00:00 98.2 120 20 116/68 97 Mechanical Ventilator 35 08/23/16 00:00 131 08/23/16 00:00 35 08/22/16 23:00 126 25 35 08/22/16 21:10 125 22 35 08/22/16 20:00 97.7 122 20 116/70 98 Mechanical Ventilator 35 08/22/16 20:00 35 08/22/16 20:00 122 08/22/16 19:27 129 26 35 08/22/16 16:43 122 26 35 08/22/16 16:00 97.7 122 24 138/76 98 Mechanical Ventilator 35 08/22/16 16:00 102 08/22/16 16:00 35 08/22/16 14:58 96 18 35 08/22/16 12:35 51 16 35 Intake and Output 08/22/16 08/23/16 19:00 07:00 Intake Total 700 ml 700 ml Output Total 200 ml 350 ml Balance 500 ml 350 ml Free Water 100 ml 100 ml Tube Feeding 600 ml 600 ml Output Urine Total 200 ml 350 ml # Bowel Movements 2 Objective paracentesis on 08/19 yielding 9 liters of ascitic fluid. General Appearance: cachetic HEENT: normocephalic, atraumatic Respiratory/Chest: chest wall non-tender, lungs clear Cardiovascular: normal peripheral pulses, normal rate Abdomen: normal bowel sounds, soft, non tender Genitourinary: normal external genitalia Extremities: no clubbing Skin: no rash, no lesions Neurologic/Psychiatric: hide and skin classer II-XII grossly normal, no motor/sensory deficits, alert, responsive, normal mood/affect Lymphatic: no groin adenopathy Current Medications Medications (Trade) Dose Ordered Sig/Hair Route PRN Reason Start Time Stop Time Status Last Admin Dose Admin Acetaminophen (Tylenol) 650 mg Q4H PRN ORAL FEVER 08/18/16 15:45 09/17/16 15:44 Albuterol/ Ipratropium (DuoNeb 0.5-3(2.5)mg/3ml) 3 ml EVERY 4 HOURS PRN HHN Shortness of Breath 08/18/16 15:45 08/23/16 15:44 Ascorbic Acid (Vitamin C) 500 mg DAILY ORAL 08/22/16 09:00 09/21/16 08:59 08/23/16 09:50 Chlorhexidine Gluconate (Tatum-Hex 2%) 1 applic HSPRN TOPIC 08/20/16 21:00 09/19/16 20:59 08/21/16 17:01 Dextrose (Dextrose 50%) STAT PRN IV Hypoglycemia 08/18/16 15:45 09/17/16 15:44 Furosemide (Lasix) 20 mg DAILY GT 08/19/16 09:00 09/18/16 08:59 08/23/16 09:50 Lactulose (Cephulac) 20 gm BID GT 08/20/16 12:40 09/18/16 11:59 08/23/16 09:49 Lansoprazole (Prevacid) 30 mg Q12HR GT 08/21/16 21:00 09/20/16 20:59 08/23/16 09:50 Levetiracetam (Keppra) 1,500 mg Q12HR GT 08/18/16 21:00 09/17/16 20:59 08/23/16 09:51 Lorazepam (Ativan 2mg/ml 1ml) 2 mg EVERY 2 HOURS PRN IV For Anxiety 08/18/16 15:45 08/25/16 15:44 08/22/16 19:32 Morphine Sulfate (Morphine Sulfate) 4 mg EVERY 4 HOURS PRN IVP Severe Pain (Pain Scale 7-10) 08/18/16 15:45 08/25/16 15:44 08/23/16 10:18 Ondansetron HCl (Zofran) 4 mg Q6H PRN IVP Nausea & Vomiting 08/18/16 15:45 09/17/16 15:44 Polyethylene Glycol (Miralax) 17 gm DAILYPRN PRN GT Constipation 08/20/16 12:40 09/17/16 15:44 Rifaximin (Xifaxan) 550 mg EVERY 12 HOURS GT 08/20/16 12:40 08/26/16 11:59 08/23/16 09:49 Spironolactone (Aldactone) 100 mg DAILY ORAL 08/22/16 09:00 09/21/16 08:59 08/23/16 09:50 Vitamin A/Vitamin D (A & D Oint) 1 applic EVERY 12 HOURS TOPIC 08/18/16 21:00 09/17/16 20:59 08/23/16 09:52 Vitamin A/Vitamin D (A & D Oint) 1 applic EVERY 12 HOURS TOPIC 08/19/16 12:30 09/18/16 12:29 08/23/16 09:52 DANTE HSIEH Aug 23, 2016 12:28
[2016-08-23] MEDS: LORazepam Inj 2mg/ml 1ml IV PRN (14:13)
[2016-08-24 04:00] VITALS: BP 107/63
[2016-08-24 08:00] VITALS: BP 104/66
[2016-08-24] MEDS: Lactulose 20gm/30ml UDC GT SCH (08:26)
[2016-08-24] MEDS: levETIRAcetam 500mg/5ml Liquid GT SCH (08:27)
[2016-08-24] MEDS: Rifaximin 550mg tab GT SCH (08:27)
[2016-08-24] MEDS: Spironolactone 50mg tab ORAL SCH (08:28)
[2016-08-24] MEDS: Ascorbic Acid 500mg tab ORAL SCH (08:28)
[2016-08-24] MEDS: Vitamin A&D Oint 2oz Tube TOPIC SCH ×2 (08:29)
--- NOTE | 2016-08-24 11:11 | GI Progress Note ---
Assessment/Plan Problems: (1) Esophageal varices determined by endoscopy ICD Codes: I85.00 - Esophageal varices without bleeding SNOMED: 06444593, 376134643 (2) Ascites ICD Codes: R18.8 - Other ascites SNOMED: 372757678 Qualifiers: Qualified Codes: R18.8 - Other ascites (3) Anemia ICD Codes: D64.9 - Anemia, unspecified SNOMED: 073660137 Qualifiers: Qualified Codes: D64.9 - Anemia, unspecified (4) Hepatic encephalopathy ICD Codes: K72.90 - Hepatic failure, unspecified without coma SNOMED: 42544843 (5) hep c (6) Feeding by G-tube ICD Codes: Z93.1 - Gastrostomy status SNOMED: 747218247, 802359804 (7) Liver cirrhosis ICD Codes: K74.60 - Unspecified cirrhosis of liver SNOMED: 10465938 Status: unchanged Status Narrative Discussed with Dr. Arndt. Assessment/Plan s/p EGD with banding of EV s/p paracentesis >> yielding 9.7 liters >> r/o SBP monitor H&H, transfuse prn cont lactulose + Xifaxan GTF per dietary prevacid BID fu labs Subjective Subjective limited Objective Last 24 Hour Vital Signs Date Time Temp Pulse Resp B/P Pulse Ox O2 Delivery O2 Flow Rate FiO2 08/24/16 09:08 99 21 35 08/24/16 08:00 97.5 96 17 104/66 97 Mechanical Ventilator 35 08/24/16 08:00 35 08/24/16 07:23 111 29 35 08/24/16 04:43 89 18 35 08/24/16 04:00 97.7 102 16 107/63 100 Mechanical Ventilator 08/24/16 04:00 95 08/24/16 04:00 35 08/24/16 03:16 101 25 35 08/24/16 01:13 113 24 35 08/24/16 00:00 86 08/24/16 00:00 35 08/23/16 23:59 96.7 93 16 100/61 100 Mechanical Ventilator 08/23/16 23:02 85 15 35 08/23/16 20:50 112 23 35 08/23/16 20:00 35 08/23/16 20:00 104 08/23/16 20:00 97.5 111 14 112/80 94 Mechanical Ventilator 08/23/16 19:35 109 21 35 08/23/16 16:39 121 28 35 08/23/16 16:00 98.9 123 25 123/77 95 Mechanical Ventilator 35 08/23/16 16:00 110 08/23/16 16:00 35 08/23/16 14:46 113 19 35 08/23/16 12:42 122 23 35 08/23/16 12:00 35 08/23/16 12:00 98.1 129 29 132/70 98 Mechanical Ventilator 35 08/23/16 12:00 128 Intake and Output 08/23/16 08/24/16 19:00 07:00 Intake Total 600 ml 700 ml Output Total 250 ml 150 ml Balance 350 ml 550 ml Free Water 100 ml Tube Feeding 600 ml 600 ml Output Urine Total 250 ml 150 ml # Bowel Movements 2 Height (Feet): 5 Height (Inches): 8.00 Weight (Pounds): 160 General Appearance: no apparent distress, alert Cardiovascular: normal rate Respiratory/Chest: lungs clear, normal breath sounds Abdominal Exam: site - c/d/i Paulette Romero N.P. Aug 24, 2016 11:11
--- NOTE | 2016-08-24 11:54 | Pulmonology Progress Note ---
Assessment/Plan Problems: (1) Altered level of consciousness (2) Sepsis (3) Liver cirrhosis (4) Feeding by G-tube (5) hep c (6) Ascites Assessment/Plan paracentesis done, egd with banding done pt needs permanent catheter to drain the fluid check ammonia level, españa cultures gtube feeding dvt prophylaxis off abx dc to long term Subjective ROS Limited/Unobtainable: No Constitutional: Reports: no symptoms HEENT: Repors: no symptoms Allergies: Coded Allergies: No Known Allergies (Unverified , 06/09/16) Objective Last 24 Hour Vital Signs Date Time Temp Pulse Resp B/P Pulse Ox O2 Delivery O2 Flow Rate FiO2 08/24/16 11:23 96 27 35 08/24/16 09:08 99 21 35 08/24/16 08:00 97.5 96 17 104/66 97 Mechanical Ventilator 35 08/24/16 08:00 35 08/24/16 07:23 111 29 35 08/24/16 04:43 89 18 35 08/24/16 04:00 97.7 102 16 107/63 100 Mechanical Ventilator 08/24/16 04:00 95 08/24/16 04:00 35 08/24/16 03:16 101 25 35 08/24/16 01:13 113 24 35 08/24/16 00:00 86 08/24/16 00:00 35 08/23/16 23:59 96.7 93 16 100/61 100 Mechanical Ventilator 08/23/16 23:02 85 15 35 08/23/16 20:50 112 23 35 08/23/16 20:00 35 08/23/16 20:00 104 08/23/16 20:00 97.5 111 14 112/80 94 Mechanical Ventilator 08/23/16 19:35 109 21 35 08/23/16 16:39 121 28 35 08/23/16 16:00 98.9 123 25 123/77 95 Mechanical Ventilator 35 08/23/16 16:00 110 08/23/16 16:00 35 08/23/16 14:46 113 19 35 08/23/16 12:42 122 23 35 08/23/16 12:00 35 08/23/16 12:00 98.1 129 29 132/70 98 Mechanical Ventilator 35 08/23/16 12:00 128 Intake and Output 08/23/16 08/24/16 19:00 07:00 Intake Total 600 ml 700 ml Output Total 250 ml 150 ml Balance 350 ml 550 ml Free Water 100 ml Tube Feeding 600 ml 600 ml Output Urine Total 250 ml 150 ml # Bowel Movements 2 Objective paracentesis on 08/19 yielding 9 liters of ascitic fluid. General Appearance: cachetic HEENT: normocephalic, atraumatic Respiratory/Chest: chest wall non-tender, lungs clear Cardiovascular: normal peripheral pulses, normal rate Abdomen: normal bowel sounds, soft, non tender Genitourinary: normal external genitalia Extremities: no clubbing Skin: no rash, no lesions Current Medications Medications (Trade) Dose Ordered Sig/Hair Route PRN Reason Start Time Stop Time Status Last Admin Dose Admin Acetaminophen (Tylenol) 650 mg Q4H PRN ORAL FEVER 08/18/16 15:45 09/17/16 15:44 Ascorbic Acid (Vitamin C) 500 mg DAILY ORAL 08/22/16 09:00 09/21/16 08:59 08/24/16 08:28 Chlorhexidine Gluconate (Tatum-Hex 2%) 1 applic HSPRN TOPIC 08/20/16 21:00 09/19/16 20:59 08/21/16 17:01 Dextrose (Dextrose 50%) STAT PRN IV Hypoglycemia 08/18/16 15:45 09/17/16 15:44 Furosemide (Lasix) 20 mg DAILY GT 08/19/16 09:00 09/18/16 08:59 08/24/16 08:28 Lactulose (Cephulac) 20 gm BID GT 08/20/16 12:40 09/18/16 11:59 08/24/16 08:26 Lansoprazole (Prevacid) 30 mg Q12HR GT 08/21/16 21:00 09/20/16 20:59 08/24/16 08:28 Levetiracetam (Keppra) 1,500 mg Q12HR GT 08/18/16 21:00 09/17/16 20:59 08/24/16 08:27 Lorazepam (Ativan 2mg/ml 1ml) 2 mg EVERY 2 HOURS PRN IV For Anxiety 08/18/16 15:45 08/25/16 15:44 08/23/16 14:13 Morphine Sulfate (Morphine Sulfate) 4 mg EVERY 4 HOURS PRN IVP Severe Pain (Pain Scale 7-10) 08/18/16 15:45 08/25/16 15:44 08/23/16 10:18 Ondansetron HCl (Zofran) 4 mg Q6H PRN IVP Nausea & Vomiting 08/18/16 15:45 09/17/16 15:44 Polyethylene Glycol (Miralax) 17 gm DAILYPRN PRN GT Constipation 08/20/16 12:40 09/17/16 15:44 Rifaximin (Xifaxan) 550 mg EVERY 12 HOURS GT 08/20/16 12:40 08/26/16 11:59 08/24/16 08:27 Spironolactone (Aldactone) 100 mg DAILY ORAL 08/22/16 09:00 09/21/16 08:59 08/24/16 08:28 Vitamin A/Vitamin D (A & D Oint) 1 applic EVERY 12 HOURS TOPIC 08/18/16 21:00 09/17/16 20:59 08/24/16 08:29 Vitamin A/Vitamin D (A & D Oint) 1 applic EVERY 12 HOURS TOPIC 08/19/16 12:30 09/18/16 12:29 08/24/16 08:29 DANTE HSIEH Aug 24, 2016 11:54
[2016-08-24 12:00] VITALS: BP 97/59
[2016-08-24] MEDS ORDERED: NS 275ml ONE (13:49)
[2016-08-24 16:00] VITALS: BP 100/58
--- NOTE | 2016-08-24 18:01 | Procedure Note ---
DATE OF PROCEDURE: 08/21/2016 SURGEON: Anthony Arndt M.D. PROCEDURE: Upper endoscopy with banding of esophageal varices. ANESTHESIA: Per anesthesiologist . INSTRUMENT: Olympus adult flexible upper endoscope. INDICATION: Upper GI bleeding. The procedure, risks, benefits, and possible consequences, including hemorrhage, aspiration, perforation and infection, and alternative treatments, were explained to the patient/legal guardian by Dr. Anthony Arndt and the patient/legal guardian understood and accepted these risks. DESCRIPTION OF PROCEDURE: After informed consent was obtained and the patient was adequately sedated, Olympus upper endoscope was advanced from mouth into the second portion of the duodenum and retroflexion was performed in the stomach. Then, banding device was placed at the tip of the scope. Total of 4 bands were placed in the distal esophageal varices without any complication. The patient tolerated the procedure without any complication. SUMMARY OF FINDINGS: Distal esophageal varices, status post banding x4. RECOMMENDATIONS: The patient to be started on tube feeding later today, monitor labs, transfuse as needed. The patient most probably will benefit from repeat banding in 2 months. I want to thank, Dr. Breen, for this kind referral. Anthony Arndt M.D. DR: MICHELLE JOB#: [id number] CC: Uma Breen M.D.; Fax#: [phone]
--- NOTE | 2016-08-24 20:13 | Cardiology Report ---
APPROVED REPORT EKG Measurement Heart [id number] OH P38 [id number] Sinus tachycardia Complete heart block with infranodal junctional escape rhythm. Left axis deviation Inferior infarct, age undetermined Marked T wave abnormality, consider anterolateral ischemia Abnormal ECG
--- NOTE | 2016-08-25 14:44 | Diagnostic Imaging Report ---
APPROVED REPORT CPT Code: 95298 Present Symptoms Shortness of breath Comments: Prior venous duplex studies 07/21/2016 and 08/07/2016. Montoya's cyst in rt popliteal fossa. BILATERAL: Imaging reveals a patent deep venous system bilaterally. There is no evidence of thrombus within the femoral, popliteal or tibial segments. The greater saphenous veins are also within normal limits. Doppler indicates normal spontaneous flow within these segments. Incidental finding: Montoya's cyst in right popliteal fossa measuring 3.9 cm x 2.5 cm x 1.5 cm.
--- NOTE | 2016-08-25 14:47 | Discharge Summary ---
Discharge Summary Hospital Course Date of Admission Aug 18, 2016 at 11:42 Date of Discharge Aug 24, 2016 at 17:45 Admitting Diagnosis sepsis HPI Arnaldo Ramirez is a 56 year old male who was admitted on Aug 18, 2016 at 11:42 for Sepsis Hospital Course dc summary #[id number] Discharge Medications Continued Medications: Acetaminophen 160MG/5ML* (Acetaminophen*) 160 Mg/5 Ml Elixir 20 ML ORAL EVERY 4 HOURS PRN for For Pain, ML Famotidine (Famotidine) 20 Mg Tablet 20 MG GT DAILY, 0 Refills Ferrous Sulfate (Ferrous Sulfate) 300 Mg/5 Ml Liquid 7.5 ML GT DAILY Furosemide* (Lasix*) 40 Mg Tablet 40 MG ORAL EVERY 12 HOURS for 30 Days, TAB Levetiracetam* (Levetiracetam*) 100 Mg/1 Ml Solution 1500 MG GT Q12HR Discharge Condition Upon Discharge: stable Discharge Disposition Patient was discharged to SNF/Subacute Facility(03) Discharge Diagnoses: Discharge Instructions Discharge Instructions Special Instructions I have been assigned to complete a D/C Summary on this account. I was not involved in the patient management Sydnie Hurtado NP ([facility]) Aug 25, 2016 14:47
--- NOTE | 2016-08-25 23:00 | Discharge Summary 2 SIG ---
DATE OF ADMISSION: 08/18/2016 DATE OF DISCHARGE: 08/24/2016 REASON FOR ADMISSION: 56-year-old male with chronic respiratory failure, tracheostomy, ventilator-dependent, G-tube, end-stage liver disease, anasarca, hepatitis C, with recurrent hospitalization due to recurrent urinary tract infection and recurrent pneumonia, presented with respiratory difficulty and altered mentation. Workup in the emergency room revealed no leukocytosis. Anemia with hemoglobin - 7.1 and hematocrit - 20.9. Lactic acid - 3.0. Ammonia level -68. Urinary analysis with evidence of urinary tract infection. Abdominal x-ray revealed ascites. Sodium- 125. INR- 1.3. Respiratory rate -28, but no fever. Chest x-ray revealed right interstitial congestion. The patient was on ventilator with the FiO2 up to 50%. In the emergency department, the patient received fluid resuscitation for sepsis and started on empiric antibiotics. Sodium was treated with normal saline. The patient was admitted to [facility] for further management. ADMITTING DIAGNOSES: 1. Urinary tract infection with history of recurrent urinary tract infection. 2. Possible pneumonia with history of recurrent healthcare-associated pneumonia/ventilator-associated pneumonia. 3. Possible sepsis 4. Acute hyponatremia. 5. Ventilator-dependent respiratory failure, tracheostomy status. 6. Ascites. 7. Hepatic encephalopathy 8. Dysphagia, gastrostomy tube. 9. Anemia 10. Sacral decubitus stage IV, present on admission. 11. Right ischial tuberosity decubitus stage II, present on admission. 12. Hepatitis C HOSPITAL COURSE: The patient was admitted to [facility]. Ventilator support and pulmonary toilet provided. As patient respiratory status improved, able to decrease FiO2 to 35%. No signs of respiratory distress with current ventilator settings. The patient was started on empiric antibiotics initially. Blood cultures were negative. Urine culture revealed E. coli, ESBL. Sputum culture was not collected. The patient was on antibiotic, regimen optimized as per ID recommendations. No leukocytosis. No fever. Status post treatment with antibiotics . ID recommended to observe off antibiotics. The patient has a history of bacteremia in the past, status post treatment. Blood cultures were done for surveillance and were negative. ECHO done on previous admission and revealed no evidence of SBE. The patient undergone on 08/19/2016, paracenteses by Interventional Radiology, which removed 9.7 liters of the fluid with complete resolution of ascites. Ascitic fluid was negative for any malignant cells, no evidence of spontaneous bacterial peritonitis. Gastrointestinal specialist followed. Patient was treated with Rifaximin and lactulose due to hepatic encephalopathy. Repeat ammonia level in SNF. The patient received total of two units of packed red blood cell, when hemoglobin dropped to 6.8 and hematocrit -19.6. Upon transfer to subacute facility, hemoglobin -8.7 and hematocrit -26.8. After being stabilized, the patient undergone on 08/21/2016, upper endoscopy with banding of esophageal varices. GI recommended to start tube feeding afterwards, repeat banding in two months, and transfuse blood as needed. Strict aspiraton precautions were maintained, able to tolerate tube feeding. Acute hyponatremia likely due to chronic liver disease, small improvement. Will need fluid restriction via G tube. in SNF. Wound care was provided as per wound care nurse recommendation and to be continued at the long-term facility. SNF medications were resumed. The patient was stable for discharge. DISCHARGE DIAGNOSES: 1. Sepsis. 2. Urinary tract infection with Escherichia coli, extended-spectrum beta-lactamases. 3. History of recurrent urinary tract infection. 4. Possible pneumonia. 5. History of recurrent healthcare-associated pneumonia/ventilator-associated pneumonia. 6. Anemia due to the acute blood loss 7. Status post two units packed red blood cell transfusion. 8. Hepatic encephalopathy 9. Ventilator-dependent respiratory failure, tracheostomy status. 10. Hyponatremia. 11. Hepatitis C. 12. Dysphagia, gastrostomy tube. 13. Ascites. 14. Status post paracenteses on 08/19/2016. 15. Liver cirrhosis. 16. Status post upper endoscopy with banding of esophageal varices. 17. Sacral decubitus, stage IV, present on admission. 18. Right ischial tuberosity stage II, present on admission. DISCHARGE MEDICATIONS: See medication reconciliation list. DISCHARGE INSTRUCTIONS: The patient is discharged to subacute long-term facility. Followup with medical doctor and psychiatric cns at the facility. Uma Breen M.D. I have been assigned to dictate discharge summary on this account and I was not involved in the patient's management. Sydnie Hurtado N.P. ([place]te[place]) DR: BENNIE JOB#: [id number] CC: [email or web address]
== END 2016-08-24 17:45 | DRG 710 ==
LOC: EDBD 11:01 → EMR 11:20 → 2W 11:42 → EDBEDREQ 14:12
PROC: 5A1955Z Respiratory Ventilation, Greater than 96 Consecutive Hours (ICD-10-PCS; principal; 2016-08-18)
PROC: 0W9G3ZZ Drainage of Peritoneal Cavity, Percutaneous Approach (ICD-10-PCS; 2016-08-19)
PROC: 30233N1 Transfusion of Nonautologous Red Blood Cells into Peripheral Vein, Percutaneous Approach (ICD-10-PCS; 2016-08-19)
PROC: 02HV33Z Insertion of Infusion Device into Superior Vena Cava, Percutaneous Approach (ICD-10-PCS; 2016-08-19)
PROC: 06L Lower Veins, Occlusion (ICD-10-PCS; 2016-08-20)
DX: A41.9 Sepsis, unspecified organism (principal); Z99.11 Dependence on respirator [ventilator] status; J18.9 Pneumonia, unspecified organism; L89.304 Pressure ulcer of unspecified buttock, stage 4; L89.154 Pressure ulcer of sacral region, stage 4; J96.10 Chronic respiratory failure, unspecified whether with hypoxia or hypercapnia; L89.312 Pressure ulcer of right buttock, stage 2; R18.8 Other ascites; K72.90 Hepatic failure, unspecified without coma; E87.1 Hypo-osmolality and hyponatremia; N39.0 Urinary tract infection, site not specified; K74.60 Unspecified cirrhosis of liver; Z43.1 Encounter for attention to gastrostomy; B19.20 Unspecified viral hepatitis C without hepatic coma; B96.20 Unspecified Escherichia coli [E. coli] as the cause of diseases classified elsewhere; Z16.12 Extended spectrum beta lactamase (ESBL) resistance; D62 Acute posthemorrhagic anemia; Z86.73 Personal history of transient ischemic attack (TIA), and cerebral infarction without residual deficits; I85.00 Esophageal varices without bleeding; Z86.14 Personal history of Methicillin resistant Staphylococcus aureus infection; Z43.0 Encounter for attention to tracheostomy; R13.10 Dysphagia, unspecified
CPT/HCPCS: 36415; 36569; 71010; 74000; 76937; 76942; 80048; 80053; 80069; 80202; 81003; 82140; 82248; 82550; 82962; 83540; 83550; 83605; 83690; 83735; 83880; 84100; 84484; 85007; 85025; 85610; 85730; 86850; 86900; 86901; 86920; 87040; 87070; 87086; 87181; 87205; 88104; 89051; 93005; 93970; 94002; 94003; 94150; 94664

== ENCOUNTER 2016-09-04 14:27 | Inpatient (IN) | payer MEDICAID ==
[~2016-09-04] VITALS: Ht 172.7 cm; Wt 72.6 kg
[2016-09-04] VITALS (12 sets, daily range): BP systolic 84–107; BP diastolic 46–73
[~2016-09-04 14:27] MED LIST changes: +COLACE100 MG GT; +CRANBERRY450 M4 GT
[2016-09-04] MEDS ORDERED: Pantoprazole Inj IV ONE (14:30)
[2016-09-04] MEDS: Morphine Sulfate 4mg/ml Inj IVP ONE ×2 (14:30→15:38)
--- NOTE | 2016-09-04 15:03 | Emergency Room Report ---
History of Present Illness General Chief Complaint: General Complaint Source: Patient, Medical Record, EMS Present Illness HPI The patient is ventilator dependent. He has a gastrostomy tube. Today he started bleeding from around the gastrostomy tube. It is bright red blood that' s leaking in that area. He also has abdominal distention and also pain in his abdomen. He is unable to indicate how severe, with number, the pain is. The patient has malignant ascites from liver carcinoma. He also has a history of cirrhosis. He's had bleeding problems in the past. The patient's also had sepsis from urinary source. Communication is limited as he has a trach. Allergies: Coded Allergies: No Known Allergies (Unverified , 06/09/16) Patient History Past Medical History: see triage record Past Surgical History: other - trach, G tube Social History: Reports: alcohol use - former, drug use - former IVDA, smoking Social History Narrative SNF Reviewed Nursing Documentation: PMH: Agreed, PSxH: Agreed Nursing Documentation-PMH Hx Pacemaker: No Hx COPD: Yes Hx Gastrointestinal Problems: Yes Hx Dialysis: No History Of Psychiatric Problem: Yes - ANXIETY Hx Neurological Problems: No Hx Cerebrovascular Accident: No Hx Seizures: No Hx Dysphasia: Yes Hx Weakness: Yes Review of Systems All Other Systems: limited Physical Exam Vital Signs Date Time Temp Pulse Resp B/P Pulse Ox O2 Delivery O2 Flow Rate FiO2 09/04/16 14:24 98.1 80 18 118/70 98 Room Air 09/04/16 14:30 30 Sp02 EP Interpretation: reviewed, normal General Appearance: no apparent distress, other - spider habitus, Chronically Ill Head: normocephalic Eyes: bilateral eye PERRL, bilateral eye normal inspection ENT: moist mucus membranes - poor dentition Neck: supple, other - trach Respiratory: lungs clear, normal breath sounds Cardiovascular #1: regular rate, rhythm Cardiovascular #2: 2+ radial (R) Gastrointestinal: normal inspection, no mass, no rebound, abnormal bowel sounds - decreased, distended, tenderness - diffuse, other - G tube with some blood from the base Musculoskeletal: back normal, other - atrophy Neurologic: alert, other - moving all 4 Psychiatric: anxious Skin: warm/dry, pallor, other - sallo Procedures Critical Care Time Critical Care Time Total Critical Care Time: 30 min bedside evaluation and treatment excludes procedures (EKG). Reason for critical care: hypotension, GI bleed with critical anemia, transfusion, treatment for sepsis Possible complications: hypotension, shock, arrhythmias, metabolic acidosis, end organ damage. Interventions: aggressive hydration, transfusion, repeat evaluations Course: Patient with malignant ascites presented with GI bleed around G tube. Initial H/H critically low. Dropped BP and fluids started. Emergent evaluation for GI bleed and other causes of hypotension and w/u of hypotension. Antibiotics started for urinary source. Blood emergently ordered. RN stopped blood due to back pain. Blood restarted without difficulty. Patient treated for pain. Improved and admitted to [facility]. Consultations: nursing staff, EMS Performed by: Dr. Michel Tolerated well - serious/critical Medical Decision Making Diagnostic Impression: Primary Impression: GI bleed Qualified Codes: K92.0 - Hematemesis Additional Impressions: Sepsis Qualified Codes: A41.9 - Sepsis, unspecified organism UTI (urinary tract infection) Qualified Codes: N30.00 - Acute cystitis without hematuria Malignant ascites Coagulopathy ER Course This patient was with ascites is bleeding from his gastrostomy tube site. Differential includes upper GI bleed, tract bleeding, coagulopathy amongst others. We have to ascertained that the tube is in the proper place and abdominal film be taken with Gastrografin initially. After this, CT of the abdomen will be ordered. The patient needs to have blood work done looking for coagulopathy as well as sitting up for possible blood transfusion. In addition the patient has abdominal pain he was treated with analgesics. Pt BP drop to 80. Fluid bolus given. NAD. H/H low - blood ordered. Coagulopathy - vitamin K ordered. Evidence of UTI. As BP not responding to fluids well, consider sepsis. Antibiotics begun. Blood infusing - RN queries whether transfusion reaction - not present. Blood continuing. Patient improving. Admit [facility], Dr. Breen. Laboratory Tests Test 09/04/16 14:40 09/04/16 14:50 09/04/16 16:19 09/04/16 20:05 Reticulocyte Count 4.4 % (0.0-2.0) H White Blood Count 12.7 K/UL (4.8-10.8) H Red Blood Count 2.02 M/UL (4.70-6.10) L Hemoglobin 7.2 G/DL (14.2-18.0) L Hematocrit 21.3 % (42.0-52.0) L Mean Corpuscular Volume 105 FL (80-99) H Mean Corpuscular Hemoglobin 35.8 PG (27.0-31.0) H Mean Corpuscular Hemoglobin Concent 34.0 G/DL (32.0-36.0) Red Cell Distribution Width 21.6 % (11.6-14.8) H Platelet Count 184 K/UL (150-450) Mean Platelet Volume 5.3 FL (6.5-10.1) L Neutrophils (%) (Auto) % (45.0-75.0) Lymphocytes (%) (Auto) % (20.0-45.0) Monocytes (%) (Auto) % (1.0-10.0) Eosinophils (%) (Auto) % (0.0-3.0) Basophils (%) (Auto) % (0.0-2.0) Differential Total Cells Counted 100 Neutrophils % (Manual) 80 % (45-75) H Lymphocytes % (Manual) 11 % (20-45) L Monocytes % (Manual) 5 % (1-10) Eosinophils % (Manual) 3 % (0-3) Basophils % (Manual) 0 % (0-2) Band Neutrophils 1 % (0-8) Platelet Estimate Adequate Platelet Morphology Normal Polychromasia 1+ Hypochromasia 2+ Poikilocytosis Anisocytosis 3+ Prothrombin Time 15.1 SEC (9.30-11.50) H Prothrombin Time INR 1.4 (0.9-1.1) H PTT 34 SEC (23-33) H Sodium Level 127 mEQ/L (135-145) L Potassium Level 4.0 mEQ/L (3.4-4.9) Chloride Level 90 mEQ/L (98-107) L Carbon Dioxide Level 22 mEQ/L (20-30) Anion Gap 15 (5-15) Blood Urea Nitrogen 17 mg/dL (7-23) Creatinine 0.5 mg/dL (0.7-1.2) L Estimate Glomerular Filtration Rate > 60 mL/min (>60) Glucose Level 95 mg/dL (74-106) Calcium Level 8.0 mg/dL (8.6-10.2) L Total Bilirubin 1.0 mg/dL (0.0-1.2) 1.1 mg/dL (0.0-1.2) Aspartate Amino Transferase (AST) 39 U/L (5-40) Alanine Aminotransferase (ALT) 21 U/L (3-41) Alkaline Phosphatase 240 U/L (40-129) H Ammonia 77 umol/L (16-60) H Total Creatine Kinase 22 U/L (38-174) L Troponin I < 0.30 ng/mL (<=0.30) Total Protein 6.3 g/dL (6.6-8.7) L Albumin 2.0 g/dL (3.5-5.2) L Globulin 4.3 g/dL Albumin/Globulin Ratio 0.4 (1.0-2.7) L Lipase 11 U/L (< 60) Urine Color Brown Urine Appearance Cloudy Urine pH 5 (4.5-8.0) Urine Specific [place] 1.020 (1.005-1.035) Urine Protein 3+ (NEGATIVE) H Urine Glucose (UA) Negative (NEGATIVE) Urine Ketones 1+ (NEGATIVE) H Urine Occult Blood 5+ (NEGATIVE) H Urine Nitrite Negative (NEGATIVE) Urine Bilirubin Negative (NEGATIVE) Urine Urobilinogen 1 MG/DL (0.0-1.0) H Urine Leukocyte Esterase 3+ (NEGATIVE) H Urine RBC 15-20 /HPF (0 - 0) H Urine WBC Tntc /HPF (0 - 0) H Urine Squamous Epithelial Cells None /LPF (NONE/OCC) Urine Bacteria Many /HPF (NONE) H Uric Acid 6.6 mg/dL (3.0-7.5) Iron Level 49 ug/dL (59-158) L Total Iron Binding Capacity 158 ug/dL (250-400) L Percent Iron Saturation 31 % (15-50) Unsaturated Iron Binding 109 ug/dL (112-346) L Ferritin 451 ng/mL (10-230) H Direct Bilirubin 0.5 mg/dL (0.1-0.3) H Prostate Specific Antigen 0.4 ng/mL (< 3.5) Vitamin B12 Level < 2000 pg/mL (211-946) H Folate Pending HIV (1&2) Antibody Rapid Negative (NEGATIVE) EKG Diagnostic Results Rate: normal Rhythm: NSR ST Segments: no acute changes - RBBB Rhythm Strip Diag. Results EP Interpretation: yes Rhythm: NSR, no PVC's, no ectopy Chest X-Ray Diagnostic Results Chest X-Ray Diagnostic Results : Chest X-Ray Ordered: Yes # of Views/Limited/Complete: 1 View Indication: Other EP Interpretation: Yes Interpretation: no consolidation, no effusion, no pneumothorax, other - Decreased inspiration no effusions probable ascites Impression: Other Interpreting ER Provider: Electronically signed by Bernardo Michel MD Other X-Ray Diagnostic Results Other X-Ray Diagnostic Results : X-Ray ordered: abd # of Views/Limited Vs Complete: 1 View Indication: Other Interpretation: nonspecific bowel gas, no sbo, other - ascites and gastrograffin in lumen Impression: Other Interpreting ER Provider: Electronically signed by Bernardo Michel MD CT/MRI/US Diagnostic Results CT/MRI/US Diagnostic Results : Imaging Test Ordered: abd pelvis Impression Impression: Massive ascites, increased from previous exam Body wall, mesenteric, omental edema all suggest anasarca. Superimposed omental nodularity in the setting of carcinomatosis not excludable. Development of loculated gas and fluid collection in the posterior basal aspect of right hemithorax in region of previous loculated pleural effusion. This is most likely pleural in location. Appearance of gas may indicate infection, interval instrumentation, or development of bronchopleural fistula. Lung abscess not excludable. Decrease in but persistence of left pleural effusion Persistent pulmonary bibasal atelectasis, also decreased Other stable chronic changes as described Last Vital Signs Date Time Temp Pulse Resp B/P Pulse Ox O2 Delivery O2 Flow Rate FiO2 09/05/16 03:12 75 14 30 09/05/16 01:00 96.3 101/53 98 Mechanical Ventilator Status: improved Disposition: ADMITTED INPATIENT Condition: Critical Bernardo Michel M.D. Sep 04, 2016 15:03
[2016-09-04 15:08] LABS: MEAN CORPUSCULAR HEMOGLOBIN 35.8 PG (27.0-31.0); MEAN CORPUSCULAR VOLUME 105 FL (80-99); MEAN PLATELET VOLUME 5.3 FL (6.5-10.1); PLATELET COUNT 184 K/UL (150-450); RED BLOOD COUNT 2.02 M/UL (4.70-6.10); RED CELL DISTRIBUTION WIDTH 21.6 % (11.6-14.8); WHITE BLOOD COUNT 12.7 K/UL (4.8-10.8)
[2016-09-04 15:15] LABS: INR 1.4 (0.9-1.1); PROTHROMBIN TIME 15.1 SEC (9.30-11.50)
[2016-09-04 15:22] LABS: TROPONIN I < 0.30 ng/mL (<=0.30)
[2016-09-04 15:23] LABS: ALANINE AMINOTRANSFERASE 21 U/L (3-41); ALBUMIN/GLOBULIN RATIO 0.4 (1.0-2.7); AMMONIA 77 umol/L (16-60); ANION GAP 15 (5-15); ASPARTATE AMINO TRANSFERASE 39 U/L (5-40); CARBON DIOXIDE 22 mEQ/L (20-30); CHLORIDE 90 mEQ/L (98-107); CREATININE 0.5 mg/dL (0.7-1.2); GLOMERULAR FILTRATION RATE > 60 mL/min (>60); HEMOLYSIS 36; LIPASE 11 U/L (< 60); SODIUM 127 mEQ/L (135-145); TOTAL PROTEIN 6.3 g/dL (6.6-8.7)
--- NOTE | 2016-09-04 15:29 | Diagnostic Imaging Report ---
Indication: Dyspnea Comparison: 08/18/16 A single view chest radiograph was obtained. Findings: There is mild atelectasis versus infiltrate at the right lung base. There may be a pleural effusion on the right as well. Volume loss noted. Generalized low lung volumes bilaterally. Heart size is normal. Tracheostomy noted. Impression: No definite change. Infiltrate versus atelectasis right lung base. Possible right pleural effusion.
[2016-09-04] MEDS ORDERED: Phytonadione 10 mg/mL 1ml amp SUBQ ONE (15:45)
[2016-09-04 16:11] LABS: BAND NEUTROPHILS % (MANUAL) 1 % (0-8); EOSINOPHILS % (MANUAL) 3 % (0-3); LYMPHOCYTES % (MANUAL) 11 % (20-45); NEUTROPHILS % (MANUAL) 80 % (45-75); TOTAL CELLS COUNTED 100
[2016-09-04 16:13] LABS: ANISOCYTOSIS 3+; HYPOCHROMASIA 2+; POLYCHROMASIA 1+
[2016-09-04 16:14] LABS: PLATELET MORPHOLOGY NORMAL
[2016-09-04 16:15] LABS: BASOPHILS % (MANUAL) 0 % (0-2); PLATELET ESTIMATE ADEQUATE
[2016-09-04 17:47] LABS: APPEARANCE,URINE CLOUDY; KETONES,URINE 1+ (NEGATIVE); LEUKOCYTE ESTERASE ,URINE 3+ (NEGATIVE); NITRITE,URINE NEGATIVE (NEGATIVE); PH,URINE 5 (4.5-8.0); PROTEIN,URINE 3+ (NEGATIVE); UROBILINOGEN,URINE 1 MG/DL (0.0-1.0)
[2016-09-04 17:53] LABS: BACTERIA,URINE MANY /HPF; RBC,URINE 15-20 /HPF (0 - 0); WBC,URINE TNTC /HPF (0 - 0)
--- NOTE | 2016-09-04 18:46 | History and Physical ---
History of Present Illness General Date patient seen: Sep 04, 2016 Reason for Hospitalization: General Complaint Present Illness HPI 56 year olf male with hx of end stage liver disease, PEG, chronic ascites, ventilator dependent, started bleeding from around the gastrostomy tube. It is bright red blood that's leaking in that area. He also has abdominal distention and also pain in his abdomen. Allergies: Coded Allergies: No Known Allergies (Unverified , 06/09/16) Medication History Scheduled Ascorbic Acid* (Vitamin C*), 500 MG GT DAILY, (Reported) Colistimethate Sodium (Colistin), 150 MG HHN BID Cran/Vitc/Mannose/Inulin/Brom (Uti-Stat Liquid), 3,875 MG GT DAILY, (Reported) Docusate Sodium* (Colace*), 100 MG GT DAILY, (Reported) Famotidine (Famotidine), 20 MG GT DAILY, (Reported) Ferrous Sulfate (Ferrous Sulfate), 7.5 ML GT DAILY, (Reported) Folic Acid* (Folic Acid*), 1 MG GT DAILY, (Reported) Furosemide* (Lasix*), 20 MG GT DAILY, (Reported) Furosemide* (Lasix*), 40 MG ORAL EVERY 12 HOURS Lactulose (Lactulose*), 30 ML GT QID, (Reported) Levetiracetam* (Levetiracetam*), 1,500 MG GT Q12HR, (Reported) Meropenem (Merrem), 1 GM IV Q8HR Multivitamin With Minerals (Multivitamins With Minerals*), 1 TAB GT DAILY, ( Reported) Propranolol Hcl* (Inderal*), 10 MG GT BID, (Reported) Vancomycin Hcl/D5w (Vancomycin-D5w 1 G/250 Ml), 1 GM IVPB Q24H Zinc Sulfate (Zinc Sulfate*), 220 MG GT DAILY, (Reported) Scheduled PRN Acetaminophen 160MG/5ML* (Acetaminophen*), 20 ML ORAL EVERY 4 HOURS PRN for For Pain, (Reported) Bisacodyl (Dulcolax), 10 MG RC DAILY PRN for Constipation, (Reported) Lorazepam* (Lorazepam*), 1 MG GT Q6HR PRN for For Anxiety, (Reported) Magnesium Hydroxide* (Milk Of Magnesia*), 30 ML GT QHS PRN for Constipation, ( Reported) Na Phos,M-B/Na Phos,Di-Ba* (Fleet Enema*), 133 ML RECTAL EVERY TWO DAYS PRN for Constipation, (Reported) Naproxen Sodium (Naproxen Sodium), 220 MG GT PRN PRN for For Pain, (Reported) Miscellaneous Medications Cranberry Fruit Concentrate (Cranberry), 450 MG GT, (Reported) Patient History Healthcare decision maker Resuscitation status Advanced Directive on File Past Medical/Surgical History Past Medical/Surgical History: (1) Ascites (2) Decubitus ulcer (3) hep c (4) Liver cirrhosis Review of Systems All Other Systems: negative except mentioned in HPI Physical Exam General Appearance: cachetic Lines, tubes and drains: peripheral HEENT: normocephalic Neck: non-tender Respiratory/Chest: chest wall non-tender Breasts: no masses Cardiovascular/Chest: normal peripheral pulses Abdomen: hypoactive bowel sounds, distended Last 24 Hour Vital Signs Date Time Temp Pulse Resp B/P Pulse Ox O2 Delivery O2 Flow Rate FiO2 09/04/16 18:40 95 20 30 09/04/16 18:05 97.5 91 19 88/55 99 Mechanical Ventilator 30 09/04/16 17:25 99 24 107/47 100 Room Air 09/04/16 16:44 98.6 96 24 94/48 100 Mechanical Ventilator 30 09/04/16 16:30 99 24 30 09/04/16 14:35 100 28 Mechanical Ventilator 30 09/04/16 14:30 110 27 30 09/04/16 14:24 98.1 80 18 118/70 98 Room Air Laboratory Tests Test 09/04/16 14:50 09/04/16 16:19 White Blood Count 12.7 K/UL (4.8-10.8) H Red Blood Count 2.02 M/UL (4.70-6.10) L Hemoglobin 7.2 G/DL (14.2-18.0) L Hematocrit 21.3 % (42.0-52.0) L Mean Corpuscular Volume 105 FL (80-99) H Mean Corpuscular Hemoglobin 35.8 PG (27.0-31.0) H Mean Corpuscular Hemoglobin Concent 34.0 G/DL (32.0-36.0) Red Cell Distribution Width 21.6 % (11.6-14.8) H Platelet Count 184 K/UL (150-450) Mean Platelet Volume 5.3 FL (6.5-10.1) L Neutrophils (%) (Auto) % (45.0-75.0) Lymphocytes (%) (Auto) % (20.0-45.0) Monocytes (%) (Auto) % (1.0-10.0) Eosinophils (%) (Auto) % (0.0-3.0) Basophils (%) (Auto) % (0.0-2.0) Differential Total Cells Counted 100 Neutrophils % (Manual) 80 % (45-75) H Lymphocytes % (Manual) 11 % (20-45) L Monocytes % (Manual) 5 % (1-10) Eosinophils % (Manual) 3 % (0-3) Basophils % (Manual) 0 % (0-2) Band Neutrophils 1 % (0-8) Platelet Estimate Adequate Platelet Morphology Normal Polychromasia 1+ Hypochromasia 2+ Poikilocytosis Anisocytosis 3+ Prothrombin Time 15.1 SEC (9.30-11.50) H Prothromb Time International Ratio 1.4 (0.9-1.1) H Activated Partial Thromboplast Time 34 SEC (23-33) H Sodium Level 127 mEQ/L (135-145) L Potassium Level 4.0 mEQ/L (3.4-4.9) Chloride Level 90 mEQ/L (98-107) L Carbon Dioxide Level 22 mEQ/L (20-30) Anion Gap 15 (5-15) Blood Urea Nitrogen 17 mg/dL (7-23) Creatinine 0.5 mg/dL (0.7-1.2) L Estimat Glomerular Filtration Rate > 60 mL/min (>60) Glucose Level 95 mg/dL (74-106) Calcium Level 8.0 mg/dL (8.6-10.2) L Total Bilirubin 1.0 mg/dL (0.0-1.2) Aspartate Amino Transf (AST/SGOT) 39 U/L (5-40) Alanine Aminotransferase (ALT/SGPT) 21 U/L (3-41) Alkaline Phosphatase 240 U/L (40-129) H Ammonia 77 umol/L (16-60) H Total Creatine Kinase 22 U/L (38-174) L Troponin I < 0.30 ng/mL (<=0.30) Total Protein 6.3 g/dL (6.6-8.7) L Albumin 2.0 g/dL (3.5-5.2) L Globulin 4.3 g/dL Albumin/Globulin Ratio 0.4 (1.0-2.7) L Lipase 11 U/L (< 60) Urine Color Brown Urine Appearance Cloudy Urine pH 5 (4.5-8.0) Urine Specific [place] 1.020 (1.005-1.035) Urine Protein 3+ (NEGATIVE) H Urine Glucose (UA) Negative (NEGATIVE) Urine Ketones 1+ (NEGATIVE) H Urine Occult Blood 5+ (NEGATIVE) H Urine Nitrite Negative (NEGATIVE) Urine Bilirubin Negative (NEGATIVE) Urine Urobilinogen 1 MG/DL (0.0-1.0) H Urine Leukocyte Esterase 3+ (NEGATIVE) H Urine RBC 15-20 /HPF (0 - 0) H Urine WBC Tntc /HPF (0 - 0) H Urine Squamous Epithelial Cells None /LPF (NONE/OCC) Urine Bacteria Many /HPF (NONE) H Height (Feet): 5 Height (Inches): 8.00 Weight (Pounds): 160 Medications Current Medications Medications (Trade) Dose Ordered Sig/Hair Route PRN Reason Start Time Stop Time Status Last Admin Dose Admin Sodium Chloride (Sodium Chloride 1000ml bag) 1,000 ml @ 300 mls/hr Q3H20M IV 09/04/16 14:45 10/04/16 14:44 09/04/16 15:38 Assessment/Plan Problem List: (1) GI bleed ICD Codes: K92.2 - Gastrointestinal hemorrhage, unspecified SNOMED: 12736255 Qualifiers: Qualified Codes: K92.0 - Hematemesis (2) Coagulopathy ICD Codes: D68.9 - Coagulation defect, unspecified SNOMED: 29342783 (3) Chronic respiratory failure ICD Codes: J96.10 - Chronic respiratory failure, unspecified whether with hypoxia or hypercapnia SNOMED: 46024370 (4) Liver cirrhosis ICD Codes: K74.60 - Unspecified cirrhosis of liver SNOMED: 06594060 (5) Ascites ICD Codes: R18.8 - Other ascites SNOMED: 554368058 (6) Malignant ascites ICD Codes: R18.0 - Malignant ascites SNOMED: 682262280 Assessment/Plan npo IV fluids prbc prn gi evaluation check cbc, electrolytes dct prophylaxis DANTE HSIEH Sep 04, 2016 18:46
[2016-09-04] MEDS ORDERED: Piperacillin/Tazobactam 3.375 GM in D5W 110 ML IVPB STA (18:48)
[2016-09-04] MEDS ORDERED: Mylanta II UD 30ml ORAL PRN (19:00)
[2016-09-04] MEDS ORDERED: Zolpidem 5mg tab ORAL PRN (19:00)
[2016-09-04] MEDS ORDERED: Vancomycin 1 GM in D5W 275 ML IVPB ONE (19:00)
[2016-09-04] MEDS ORDERED: Miralax 17gm pkt ORAL PRN (19:00)
[2016-09-04 19:39] LABS: PATH BLOOD SMEAR/OMC SENT TO PATHOLOGIST
[2016-09-04 20:47] LABS: HEMOLYSIS 5; IRON 49 ug/dL (59-158); TOTAL IRON BINDING CAPACITY 158 ug/dL (250-400)
[2016-09-04 20:57] LABS: FERRITIN 451 ng/mL (10-230); PSA TOTAL 0.4 ng/mL (< 3.5)
[2016-09-04] MEDS ORDERED: Morphine Sulfate 2mg/ml Inj IVP ONE (21:00)
[2016-09-04 21:07] LABS: URIC ACID 6.6 mg/dL (3.0-7.5)
[2016-09-04 22:00] LABS: BILIRUBIN,DIRECT 0.5 mg/dL (0.1-0.3)
[2016-09-04] MEDS ORDERED: Zosyn 3.375gm inj ONE (22:39)
[2016-09-04] MEDS: Furosemide 40mg tab ORAL SCH (22:50)
[2016-09-04] MEDS ORDERED: Cefepime 1gm vial ONE (23:00)
[2016-09-04] MEDS: Cefepime HCl 1 GM in D5W 55 ML IV SCH (23:02)
[2016-09-04] MEDS ORDERED: Vancomycin 1gm inj IVPB ONE (23:34)
[2016-09-05] VITALS (8 sets, daily range): BP systolic 87–106; BP diastolic 52–78
[2016-09-05] MEDS: levETIRAcetam 500mg/5ml Liquid GT SCH ×3 (01:18→22:36)
[2016-09-05] MEDS ORDERED: Cefepime 1gm vial ONE (05:03)
[2016-09-05] MEDS: Cefepime HCl 1 GM in D5W 55 ML IV SCH (06:09)
[2016-09-05 06:40] LABS: BASOPHILS % (AUTO) 1.1 % (0.0-2.0); EOSINOPHILS % (AUTO) 4.2 % (0.0-3.0); LYMPHOCYTES % (AUTO) 11.7 % (20.0-45.0); MEAN CORPUSCULAR HEMOGLOBIN 32.7 PG (27.0-31.0); MEAN CORPUSCULAR HGB CONC 33.8 G/DL (32.0-36.0); MEAN CORPUSCULAR VOLUME 97 FL (80-99); MEAN PLATELET VOLUME 5.9 FL (6.5-10.1); MONOCYTES % (AUTO) 6.6 % (1.0-10.0); NEUTROPHILS % (AUTO) 76.4 % (45.0-75.0); PLATELET COUNT 127 K/UL (150-450); RED BLOOD COUNT 2.49 M/UL (4.70-6.10)
[2016-09-05 07:12] LABS: AMMONIA 132 umol/L (16-60)
[2016-09-05 07:14] LABS: ALANINE AMINOTRANSFERASE 17 U/L (3-41); ALBUMIN/GLOBULIN RATIO 0.4 (1.0-2.7); ANION GAP 12 (5-15); ASPARTATE AMINO TRANSFERASE 27 U/L (5-40); CARBON DIOXIDE 25 mEQ/L (20-30); CHLORIDE 92 mEQ/L (98-107); CHOLESTEROL 72 mg/dL (< 200); CHOLESTEROL/HDL RATIO 3.3 (3.3-4.4); CREATININE 0.5 mg/dL (0.7-1.2); GLOMERULAR FILTRATION RATE > 60 mL/min (>60); HEMOLYSIS 5; LDL CHOLESTEROL (CALC.) 35 mg/dL (60-99); POTASSIUM 4.4 mEQ/L (3.4-4.9); SODIUM 129 mEQ/L (135-145); TOTAL PROTEIN 6.2 g/dL (6.6-8.7)
[2016-09-05 07:28] LABS: BILIRUBIN,DIRECT 0.5 mg/dL (0.1-0.3)
--- NOTE | 2016-09-05 07:45 | Consultation ---
DATE OF CONSULTATION: 09/04/2016 HEMATOLOGY/ONCOLOGY CONSULTATION CONSULTING PHYSICIAN: Art Mackenzie M.D. REQUESTING PHYSICIAN: Uma Breen M.D. REASON FOR CONSULTATION: Evaluation of anemia, leukocytosis, and coagulopathy. IDENTIFICATION DATA: Dear Dr. Uma Breen, The patient is a pleasant 56-year-old male, who has been to [facility] multiple times in the past. He has a history of melanocytosis, removal of carcinoma, history of cirrhosis as well, and sepsis, has a G-tube, ventilator dependant, at this time presents with bleeding around the G-tube site, abdominal distension, and pain noted. 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 PAST MEDICAL HISTORY: As noted above. CVA, PEG tube placement, ventilator-dependant respiratory failure, chronic liver disease, GI bleeding, chronically elevated alkaline phosphatase, hepatitis C, stage 4, and sacral decubitus. PAST SURGICAL HISTORY: Gastrostomy tube placement. MEDICATIONS: He was on multiple antibiotics in the past. ALLERGIES: No known drug allergies. SOCIAL HISTORY: He lives in a jail. FAMILY HISTORY: Unavailable. REVIEW OF SYSTEMS: Unavailable. PHYSICAL EXAMINATION: VITAL SIGNS: Have been reviewed. GENERAL: In no acute distress. LUNGS: Decreased breath sounds. Some crackles noted at the right lung base. CARDIOVASCULAR: Regular rate. No S3 or S4. ABDOMEN: Soft, nontender, and nondistended. EXTREMITIES: No cyanosis, clubbing, or edema. LABORATORY DATA: WBC 12.7, hemoglobin 12.3, hematocrit 21, and platelet count 184,000. INR 1.4. ASSESSMENT: 1. Coagulopathy secondary to underlying liver disease and history of liver malignancy as well. 2. Hepatitis C history. 3. Microcytosis . 4. Hepatitic C. 5. Anemia secondary to chronic disease. 6. and banding. 7. Hepatic encephalopathy. 8. Altered mental status. 9. Status post paracentesis. 10. [facility] resident. 11. deep venous ulceration. 12. Helicobacter pylori infection. 13. Liver cirrhosis. 14. Discussed with staff. Thank you Uma Breen for consultation. Art Berny Mackenzie DR: KRAIG JOB#: [id number] CC:
[2016-09-05] MEDS: Furosemide 40mg tab ORAL SCH ×2 (09:45→22:36)
--- NOTE | 2016-09-05 09:55 | Pulmonology Progress Note ---
Assessment/Plan Problems: (1) GI bleed (2) Coagulopathy (3) Chronic respiratory failure (4) Liver cirrhosis (5) Ascites (6) Malignant ascites Respiratory: monitor respiratory rate, adjust FIO2 Cardiac: continue to monitor HR/BP Renal: F/U I&O, keep IV fluid Infectious Disease: check cultures Gastrointestinal: continue feedings/current rate Endocrine: monitor blood sugar Hematologic: monitor H/H Neurologic: PRN Ativan Affect: PRN ativan Subjective ROS Limited/Unobtainable: No Allergies: Coded Allergies: No Known Allergies (Unverified , 06/09/16) Objective Last 24 Hour Vital Signs Date Time Temp Pulse Resp B/P Pulse Ox O2 Delivery O2 Flow Rate FiO2 09/05/16 08:59 87 14 30 09/05/16 07:10 86 17 30 09/05/16 05:09 78 15 30 09/05/16 04:00 97.0 86 18 106/60 97 Mechanical Ventilator 30 09/05/16 03:12 75 14 30 09/05/16 01:01 80 14 30 09/05/16 01:00 96.3 85 20 101/53 98 Mechanical Ventilator 09/05/16 00:35 97.6 76 16 102/78 100 Mechanical Ventilator 09/05/16 00:35 97.6 76 16 102/78 100 Mechanical Ventilator 09/05/16 00:10 89 21 103/74 100 Mechanical Ventilator 30 09/05/16 00:00 87 09/04/16 23:29 97.8 74 17 102/73 100 Mechanical Ventilator 30 09/04/16 23:10 96.3 09/04/16 22:36 88 23 30 09/04/16 22:30 84 19 99/55 100 Mechanical Ventilator 30 74 09/04/16 21:50 97.5 86 17 98/50 100 Mechanical Ventilator 30 09/04/16 20:58 86 20 30 09/04/16 20:15 97.6 94 17 92/49 100 Mechanical Ventilator 30 09/04/16 20:00 97.8 91 16 96/48 99 Mechanical Ventilator 30 09/04/16 20:00 97.8 91 16 09/04/16 19:50 97.6 87 16 09/04/16 19:22 97.0 90 16 91/47 100 Mechanical Ventilator 30 09/04/16 19:15 97.0 90 16 09/04/16 19:00 97.1 91 16 09/04/16 18:45 97.4 92 19 09/04/16 18:40 95 20 30 09/04/16 18:30 97.8 96 20 09/04/16 18:25 98.3 98 20 09/04/16 18:20 97.5 95 20 09/04/16 18:20 97.5 99 22 09/04/16 18:05 97.5 91 19 88/55 99 Mechanical Ventilator 30 09/04/16 17:25 99 24 107/47 100 Room Air 09/04/16 16:44 98.6 96 24 94/48 100 Mechanical Ventilator 09/04/16 16:30 99 24 30 09/04/16 16:00 97 14 84/46 100 Mechanical Ventilator 09/04/16 15:30 105 18 85/52 95 Mechanical Ventilator 09/04/16 15:00 30 09/04/16 15:00 100 17 88/52 100 Mechanical Ventilator 09/04/16 14:35 100 28 Mechanical Ventilator 09/04/16 14:30 110 27 30 09/04/16 14:24 98.1 80 18 118/70 98 Room Air Intake and Output 09/04/16 09/05/16 19:00 07:00 Intake Total 1300 ml Output Total 30 ml 650 ml Balance 1270 ml -650 ml Intake IV Total 1300 ml Output Urine Total 30 ml 650 ml # Bowel Movements 3 General Appearance: cachetic HEENT: normocephalic, atraumatic Respiratory/Chest: chest wall non-tender, lungs clear Cardiovascular: normal peripheral pulses Abdomen: normal bowel sounds, soft, non tender Genitourinary: normal external genitalia Extremities: no cyanosis Skin: no rash Laboratory Tests 09/04/16 14:40: Reticulocyte Count 4.4H 09/04/16 14:50: White Blood Count 12.7H, Red Blood Count 2.02L, Hemoglobin 7.2L, Hematocrit 21.3L, Mean Corpuscular Volume 105H, Mean Corpuscular Hemoglobin 35.8H, Mean Corpuscular Hemoglobin Concent 34.0, Red Cell Distribution Width 21.6H, Platelet Count 184, Mean Platelet Volume 5.3L, Neutrophils (%) (Auto) , Lymphocytes (%) (Auto) , Monocytes (%) (Auto) , Eosinophils (%) (Auto) , Basophils (%) (Auto) , Differential Total Cells Counted 100, Neutrophils % ( Manual) 80H, Lymphocytes % (Manual) 11L, Monocytes % (Manual) 5, Eosinophils % ( Manual) 3, Basophils % (Manual) 0, Band Neutrophils 1, Platelet Estimate Adequate, Platelet Morphology Normal, Polychromasia 1+, Hypochromasia 2+, Poikilocytosis , Anisocytosis 3+, Prothrombin Time 15.1H, Prothromb Time International Ratio 1.4H, Activated Partial Thromboplast Time 34H, Sodium Level 127L, Potassium Level 4.0, Chloride Level 90L, Carbon Dioxide Level 22, Anion Gap 15, Blood Urea Nitrogen 17, Creatinine 0.5L, Estimat Glomerular Filtration Rate > 60, Glucose Level 95, Calcium Level 8.0L, Total Bilirubin 1.0, Aspartate Amino Transf (AST/SGOT) 39, Alanine Aminotransferase (ALT/SGPT) 21, Alkaline Phosphatase 240H, Ammonia 77H, Total Creatine Kinase 22L, Troponin I < 0.30, Total Protein 6.3L, Albumin 2.0L, Globulin 4.3, Albumin/Globulin Ratio 0.4L, Lipase 11 09/04/16 16:19: Urine Color Brown, Urine Appearance Cloudy, Urine pH 5, Urine Specific Manley 1.020, Urine Protein 3+H, Urine Glucose (UA) Negative, Urine Ketones 1+H, Urine Occult Blood 5+H, Urine Nitrite Negative, Urine Bilirubin Negative, Urine Urobilinogen 1H, Urine Leukocyte Esterase 3+H, Urine RBC 15-20H, Urine WBC TntcH , Urine Squamous Epithelial Cells None, Urine Bacteria ManyH 09/04/16 20:05: Total Bilirubin 1.1, Uric Acid 6.6, Iron Level 49L, Total Iron Binding Capacity 158L, Percent Iron Saturation 31, Unsaturated Iron Binding 109L, Ferritin 451H, Direct Bilirubin 0.5H, Prostate Specific Antigen 0.4, Vitamin B12 Level < 2000H , Folate [Pending], HIV (1&2) Antibody Rapid Negative 09/05/16 05:12: White Blood Count 7.0, Red Blood Count 2.49L, Hemoglobin 8.1L, Hematocrit 24.1L , Mean Corpuscular Volume 97, Mean Corpuscular Hemoglobin 32.7H, Mean Corpuscular Hemoglobin Concent 33.8, Red Cell Distribution Width 21.0H, Platelet Count 127L, Mean Platelet Volume 5.9L, Neutrophils (%) (Auto) 76.4H, Lymphocytes (%) (Auto) 11.7L, Monocytes (%) (Auto) 6.6, Eosinophils (%) (Auto) 4.2H, Basophils (%) (Auto) 1.1, Sodium Level 129L, Potassium Level 4.4, Chloride Level 92L, Carbon Dioxide Level 25, Anion Gap 12, Blood Urea Nitrogen 20, Creatinine 0.5L, Estimat Glomerular Filtration Rate > 60, Glucose Level 79, Calcium Level 8.0L, Total Bilirubin 1.5H, Direct Bilirubin 0.5H, Aspartate Amino Transf (AST/SGOT) 27, Alanine Aminotransferase (ALT/SGPT) 17, Alkaline Phosphatase 215H, Ammonia 132H, Total Protein 6.2L, Albumin 1.9L, Globulin 4.3, Albumin/Globulin Ratio 0.4L, Triglycerides Level 76, Cholesterol Level 72, LDL Cholesterol 35L, HDL Cholesterol 22, Cholesterol/HDL Ratio 3.3, Thyroid Stimulating Hormone (TSH) 12.190H Current Medications Medications (Trade) Dose Ordered Sig/Hair Route PRN Reason Start Time Stop Time Status Last Admin Dose Admin Acetaminophen (Tylenol) 650 mg Q4H PRN ORAL fever 09/04/16 19:00 10/04/16 18:59 Al Hydroxide/Mg Hydroxide (Mylanta II) 30 ml Q6H PRN ORAL dyspepsia 09/04/16 19:00 10/04/16 18:59 Cefepime HCl/ Dextrose (Maxipime/D5W) 55 ml @ 110 mls/hr EVERY 8 HOURS IV 09/04/16 22:00 09/11/16 21:59 09/05/16 06:09 Dextrose (Dextrose 50%) STAT PRN IV Hypoglycemia 09/04/16 19:00 10/04/16 18:59 Furosemide (Lasix) 40 mg EVERY 12 HOURS ORAL 09/04/16 21:00 10/04/16 20:59 09/05/16 09:45 Lactulose 30 gm 30 gm EVERY 6 HOURS ORAL 09/05/16 21:00 10/05/16 20:59 Levetiracetam (Keppra) 1,500 mg Q12HR GT 09/04/16 21:00 8/6/17 20:59 09/05/16 09:45 Lorazepam (Ativan 2mg/ml 1ml) 0.5 mg Q4H PRN IV For Anxiety 09/04/16 19:00 09/11/16 18:59 Morphine Sulfate (Morphine Sulfate) 2 mg Q4H PRN IVP For Pain 4-10 09/04/16 19:00 09/11/16 18:59 Ondansetron HCl (Zofran) 4 mg Q6H PRN IVP Nausea & Vomiting 09/04/16 19:00 10/04/16 18:59 Polyethylene Glycol (Miralax) 17 gm HSPRN PRN ORAL Constipation 09/04/16 19:00 10/04/16 18:59 Zolpidem Tartrate (Ambien) 5 mg HSPRN PRN ORAL Insomnia 09/04/16 19:00 10/04/16 18:59 DANTE HSIEH Sep 05, 2016 09:55
--- NOTE | 2016-09-05 12:35 | Consultation ---
Consult Note Consult Note DATE OF CONSULTATION: 09/06/2015 INFECTIOUS DISEASES CONSULTATION CONSULTING PHYSICIAN: Devang Ford M.D., [facility], [facility] covering for Dr. Urena REFERRING PHYSICIAN: Uma Breen M.D. REASON FOR CONSULTATION: leukocytosis, probable cervantes associated UTI HISTORY OF PRESENT ILLNESS: 56 y/o male with history of multiple MDRO and chronic ascites secondary to end stage liver disease and cirrhosis, chronic trach/peg, alf resident, admitted yesterday for bleeding around the G- tube site, abdominal distension, and pain, found to have leukocytosis of 12.7 on admission w/o fevers. recent admission for tense ascites found to be negative for SBP, and which after this was confirmed stopped empiric IV vancomycin and zosyn after 48 hrs on 08/20/16. Also recent h/o recurrent HCAP/VAP with Pseudomonas, Proteus mirabilis, and KPC requiring 7 days IV meropenem and inhaled colistin completed on 07/28/16. also remote h/o polymicrobial (MRSA, M morganii, Psa) bacteremia with negative TTE and remote h/o ESBL E coli UTI. patient currently w/o specific complaint, ability to mouth some limited conversation, and he has significant but not tense ascites. Prior PICC line placed on 08/19/16 appears to be out. indwelling cervantes of undetermined duration. i understand he is pending repeat pericentesis. PAST MEDICAL HISTORY: 1. History of recent healthcare-associated pneumonia. 2. History of polymicrobial bacteremia. 3. History of gross hematuria and urinary tract infection due to ESBL E. coli. 4. Stage IV sacral decubitus. 5. History of hepatitis C antibody positive. 6. History of chronic elevated alkaline phosphatase. 7. History of Upper GI bleed. 8. History of chronic liver disease. 9. History of ventilator-dependent respiratory failure. 10. Status post PEG. 11. History of CVA. ALLERGIES: No known drug allergies. Antibiotics: IV Vancomycin and cefepime SOCIAL HISTORY: The patient lives in a alf. FAMILY HISTORY: Unavailable. REVIEW OF SYSTEMS: Unobtainable. PHYSICAL EXAMINATION: VITAL SIGNS: HEENT: Mild pale conjunctiva. No icterus. Head, normocephalic. NECK: No lymphadenopathy. CHEST: CTA b/l, minimal output from trach overnight, good inspiratory effort HEART: S1 and S2. ABDOMEN: Distended, + fluid wave, not quite tense ascites, and non tender to palpation. No organomegaly. PEG in place. EXTREMITIES: No cyanosis at this time. trace BLE. no rash. old healed scars on ble. no picc line in place NEUROLOGIC: awake, alert. : cervantes in place with dark, blood tinged urine LABORATORY AND DIAGNOSTIC DATA: Admission WBC 12.7, hemoglobin 7.2, hematocrit 21, and platelet count 184,000. INR 1.4. Repeat WBC 7, hgb 8.1, ESR 86, CO2 25, SCr 0.5. u/a with 3+ Leukocyte esterases, TNTC WBC Ucx: 09/04 >100k CFU GNR CXR: There is mild atelectasis versus infiltrate at the right lung base. There may be a pleural effusion on the right as well. Volume loss noted. Generalized low lung volumes bilaterally. Heart size is normal. Tracheostomy noted. Impression: No definite change. Infiltrate versus atelectasis right lung base. Possible right pleural effusion. Assessment/Plan ASSESSMENT: 56-year-old male with multiple medical problems, who has been admitted to this [facility] leukocytosis and bleeding around peg in the setting of chronic coagulopathy, now with urinary catheter associated UTI. Prior ESBL E coli in his urine has been resistant to cefepime but susceptible to zosyn. pending r/o for SBP, but recent eval in July2016 was negative for SBP. His exam and CXR does not suggest pneumonia at this time. Is afebrile, leukocytosis resolved s/p 1 dose of zosyn yesterday, and is hemodynamically stable. //GNR urinary catheter associated UTI, prior h/o ESBL E coli //hx of chronic ascites, july2016, neg for SBP //hx of recurrent HCAP/VAP SCx: Psa, Pr mirabilis, KPC //hx of polymicrobial bactermia (MRSA, M. morganii, Psa) with TTE negative for IE s/p treatment //hx of recurrent Stage IV sacral decubitus ulcer //HCV Ab+ //Negative HIV //Elevated alkaline phosphatase with negative HIDA scan 07/15 //Afebrile w/o leukocytosis //Elevated ESR, CRP //H. pylori on last EGD pending outpatient treatment //UGIB d/t esophageal ulcer and severe portal hypertensive gastropathy 07/22/16 s/p banding 08/20/16 //Chronic liver disease/cirrhosis with elevated LFTs US: reactive GB wall thickening CT: liver cirrhosis with stigmata of portal hypertension //chronic VDRF s/p trach and peg //h/o CVA //[facility] resident //MDRO colonized //NKDA PLAN: 1) d/c IV vancomycin and cefepime. 2) Start IV zosyn pending final results of admission urine culture. 3) follow up gram stain, cx, and cell count of paracentesis. 4) follow CBC and temperature 5) Blood cx x2 sets now. Thank you for this consultation. Will continue to follow. Devang Ford M.D. Sep 05, 2016 12:35
[2016-09-05] MEDS: Piperacillin/Tazobactam 3.375 GM in D5W 110 ML IVPB SCH ×2 (14:18→22:00)
[2016-09-05] MEDS: Morphine Sulfate 2mg/ml Inj IVP PRN (17:04)
--- NOTE | 2016-09-05 21:45 | Consultation ---
DATE OF CONSULTATION: 09/05/2016 CONSULTING PHYSICIAN: Anthony Arndt M.D. CHIEF COMPLAINT: GI bleeding and anemia. HISTORY OF PRESENT ILLNESS: Most of history is per chart. This is an unfortunate patient, known to me from prior admission. He has a history of cirrhosis, requiring EGD with banding multiple times in the past. last admission was less than a month ago. He is on chronic vent and PEG, went to the skilled nursing, came back again with anemia again. According to the nurse, the patient has some black stools, but not tarry in nature. PAST MEDICAL HISTORY: 1. Cirrhosis. 2. Esophageal varices, status post banding. 3. Anemia. 4. Respiratory failure. 5. Dysphagia with G-tube. 6. Hepatitis C. 7. Stage IV decubitus ulcerations. 8. Thrombocytopenia. 9. Elevated alkaline phosphatase. 10. Ascites. ALLERGIES: No known drug allergies. MEDICATIONS: Please see medication reconciliation list. SOCIAL HISTORY: Currently lives in a skilled nursing. No recent history of tobacco, alcohol, or drug abuse. PAST SURGICAL HISTORY: Tracheostomy. REVIEW OF SYSTEMS: Limited. FAMILY HISTORY: Noncontributory. PHYSICAL EXAMINATION: VITAL SIGNS: Temperature 97.3, pulse 83, respirations 14, and blood pressure 96/58. HEENT: Normocephalic and atraumatic. Mild pale conjunctivae. NECK: Supple. No lymphadenopathy. CARDIOVASCULAR: Tachy. Regular rate. Plus S1 and S2. LUNGS: Decreased breath sounds bilaterally based on the supine exam. ABDOMEN: Soft. G-tube in place. No rebound. No guarding. No peritoneal signs. EXTREMITIES: No cyanosis. No clubbing. No edema. LABORATORY DATA: White count 12.7, hemoglobin 7.2, hematocrit 21, MCV of 105, and platelets are 184,000. ASSESSMENT AND PLAN: 1. Anemia, macrocytic. 2. Dysphagia with gastrostomy tube. 3. Hepatitis C with cirrhosis. 4. History of ascites. 5. History of encephalopathy. 6. Respiratory failure. PLAN: 1. Send the stool for OB. 2. Monitor laboratories. 3. Keep the patient NPO for today. 4. Consider tube feeding tomorrow if the patient is stable. 5. P.r.n. blood transfusion. Actually, the patient got transfusion. Now, hemoglobin is up to about 8.1. If the patient needs a GI procedure at this time, he most probably needs a colonoscopy given the patient had multiple upper endoscopies and bandings and I do not think active banding, variceal bleeding. Recommend PPI. Anthony Arndt M.D. DR: MICHELLE JOB#: [id number] CC:
[2016-09-05] MEDS: Lactulose 20gm/30ml UDC ORAL SCH (22:35)
[2016-09-06] VITALS: BP 105/59
[2016-09-06 04:00] VITALS: BP 92/48
[2016-09-06] MEDS: Piperacillin/Tazobactam 3.375 GM in D5W 110 ML IVPB SCH ×3 (05:10→21:33)
[2016-09-06] MEDS: Lactulose 20gm/30ml UDC ORAL SCH ×4 (05:10→18:23)
[2016-09-06 05:22] LABS: BASOPHILS % (AUTO) 0.9 % (0.0-2.0); EOSINOPHILS % (AUTO) 5.5 % (0.0-3.0); LYMPHOCYTES % (AUTO) 10.3 % (20.0-45.0); MEAN CORPUSCULAR HEMOGLOBIN 31.5 PG (27.0-31.0); MEAN CORPUSCULAR HGB CONC 32.1 G/DL (32.0-36.0); MEAN CORPUSCULAR VOLUME 98 FL (80-99); MEAN PLATELET VOLUME 5.1 FL (6.5-10.1); MONOCYTES % (AUTO) 6.4 % (1.0-10.0); PLATELET COUNT 116 K/UL (150-450); RED BLOOD COUNT 2.54 M/UL (4.70-6.10); RED CELL DISTRIBUTION WIDTH 21.1 % (11.6-14.8); WHITE BLOOD COUNT 5.7 K/UL (4.8-10.8)
[2016-09-06 05:23] LABS: INR 1.2 (0.9-1.1); PROTHROMBIN TIME 12.8 SEC (9.30-11.50)
[2016-09-06 05:30] LABS: ALANINE AMINOTRANSFERASE 13 U/L (3-41); ALBUMIN/GLOBULIN RATIO 0.4 (1.0-2.7); ANION GAP 14 (5-15); ASPARTATE AMINO TRANSFERASE 24 U/L (5-40); CARBON DIOXIDE 25 mEQ/L (20-30); CHLORIDE 94 mEQ/L (98-107); CREATININE 0.4 mg/dL (0.7-1.2); GLOMERULAR FILTRATION RATE > 60 mL/min (>60); HEMOLYSIS 4; MAGNESIUM 1.9 mg/dL (1.7-2.5); PHOSPHORUS 4.7 mg/dL (2.5-4.8); POTASSIUM 3.9 mEQ/L (3.4-4.9); SODIUM 133 mEQ/L (135-145)
[2016-09-06 06:26] LABS: BILIRUBIN,DIRECT 0.5 mg/dL (0.1-0.3)
[2016-09-06 08:00] VITALS: BP 83/51
--- NOTE | 2016-09-06 09:01 | General Progress Note ---
Assessment/Plan Problem List: (1) Chronic respiratory failure ICD Codes: J96.10 - Chronic respiratory failure, unspecified whether with hypoxia or hypercapnia SNOMED: 47836989 (2) hep c (3) Liver cirrhosis ICD Codes: K74.60 - Unspecified cirrhosis of liver SNOMED: 29860597 (4) Ascites ICD Codes: R18.8 - Other ascites SNOMED: 717327890 (5) Decubitus ulcer ICD Codes: L89.90 - Pressure ulcer of unspecified site, unspecified stage SNOMED: 844522076 (6) GI bleed ICD Codes: K92.2 - Gastrointestinal hemorrhage, unspecified SNOMED: 49488757 Qualifiers: Qualified Codes: K92.0 - Hematemesis (7) Esophageal varices determined by endoscopy ICD Codes: I85.00 - Esophageal varices without bleeding SNOMED: 63943670, 980833795 (8) Feeding by G-tube ICD Codes: Z93.1 - Gastrostomy status SNOMED: 703973535, 403636962 Assessment/Plan fu stool ob consider colonoscopy if stool ob positive paracentesis start GTF today Subjective ROS Limited/Unobtainable: No Allergies: Coded Allergies: No Known Allergies (Unverified , 06/09/16) Objective Last 24 Hour Vital Signs Date Time Temp Pulse Resp B/P Pulse Ox O2 Delivery O2 Flow Rate FiO2 09/06/16 06:53 88 14 30 09/06/16 05:28 81 15 30 09/06/16 04:00 30 09/06/16 04:00 97.0 78 20 92/48 100 Mechanical Ventilator 09/06/16 03:34 68 09/06/16 02:56 78 16 30 09/06/16 01:05 73 17 30 09/06/16 00:00 30 09/06/16 00:00 97.8 72 19 105/59 100 Mechanical Ventilator 09/06/16 00:00 76 09/05/16 22:40 76 18 30 09/05/16 21:00 70 14 30 09/05/16 20:00 30 09/05/16 20:00 97.5 78 16 100/52 100 Mechanical Ventilator 30 09/05/16 20:00 73 09/05/16 19:20 73 14 30 09/05/16 17:30 97.7 7/8/17 17:02 83 21 30 09/05/16 16:00 30 09/05/16 16:00 82 09/05/16 16:00 97.7 82 16 99/52 99 Mechanical Ventilator 30 09/05/16 14:32 82 18 30 09/05/16 12:36 88 14 30 09/05/16 12:00 97.7 74 14 87/53 98 Mechanical Ventilator 30 09/05/16 12:00 78 09/05/16 10:56 83 14 30 09/05/16 10:00 73 Intake and Output 09/05/16 09/06/16 19:00 07:00 Intake Total 55 ml 156.0 ml Output Total 350 ml 250 ml Balance -295 ml -94.0 ml Intake IV Total 55 ml 156.0 ml Output Urine Total 350 ml 250 ml # Bowel Movements 5 5 Laboratory Tests 09/05/16 15:10: Stool Occult Blood [Pending] 09/06/16 04:24: White Blood Count 5.7, Red Blood Count 2.54L, Hemoglobin 8.0L, Hematocrit 24.9L , Mean Corpuscular Volume 98, Mean Corpuscular Hemoglobin 31.5H, Mean Corpuscular Hemoglobin Concent 32.1, Red Cell Distribution Width 21.1H, Platelet Count 116L, Mean Platelet Volume 5.1L, Neutrophils (%) (Auto) 77.0H, Lymphocytes (%) (Auto) 10.3L, Monocytes (%) (Auto) 6.4, Eosinophils (%) (Auto) 5.5H, Basophils (%) (Auto) 0.9, Prothrombin Time 12.8H, Prothromb Time International Ratio 1.2H, Activated Partial Thromboplast Time 35H, Sodium Level 133L, Potassium Level 3.9, Chloride Level 94L, Carbon Dioxide Level 25, Anion Gap 14, Blood Urea Nitrogen 19, Creatinine 0.4L, Estimat Glomerular Filtration Rate > 60, Glucose Level 75, Calcium Level 8.0L, Phosphorus Level 4.7, Magnesium Level 1.9, Total Bilirubin 1.3H, Direct Bilirubin 0.5H, Aspartate Amino Transf (AST/SGOT) 24, Alanine Aminotransferase (ALT/SGPT) 13, Alkaline Phosphatase 208H, Total Protein 6.0L, Albumin 1.8L, Globulin 4.2, Albumin/ Globulin Ratio 0.4L Height (Feet): 5 Height (Inches): 8.00 Weight (Pounds): 160 General Appearance: no apparent distress EENT: normal ENT inspection Neck: supple Cardiovascular: normal rate Respiratory/Chest: decreased breath sounds Abdomen: normal bowel sounds, non tender, soft Extremities: non-tender BRIA VELASQUEZ Sep 06, 2016 09:01
[2016-09-06] MEDS: Furosemide 40mg tab ORAL SCH ×2 (09:44→20:46)
[2016-09-06] MEDS: levETIRAcetam 500mg/5ml Liquid GT SCH ×2 (09:45→20:46)
--- NOTE | 2016-09-06 11:13 | Pulmonology Progress Note ---
Assessment/Plan Problems: (1) GI bleed (2) Coagulopathy (3) Chronic respiratory failure (4) Liver cirrhosis (5) Ascites Respiratory: monitor respiratory rate, CXR Cardiac: start pressors, continue to monitor HR/BP Renal: F/U I&O Infectious Disease: continue antibiotics Gastrointestinal: continue feedings/current rate, other - awating paracentesis , GI following Endocrine: monitor blood sugar, check TSH, continue sliding scale insulin Hematologic: monitor H/H, transfuse if hgb<8.5 Neurologic: PRN Morphine, keep patient comfortable Affect: PRN ativan Prophylaxis: Protonix Discussed with: nurses, consultants Subjective ROS Limited/Unobtainable: Yes Constitutional: Reports: no symptoms Allergies: Coded Allergies: No Known Allergies (Unverified , 06/09/16) Objective Last 24 Hour Vital Signs Date Time Temp Pulse Resp B/P Pulse Ox O2 Delivery O2 Flow Rate FiO2 09/06/16 09:19 88 17 30 09/06/16 06:53 88 14 30 09/06/16 05:28 81 15 30 09/06/16 04:00 30 09/06/16 04:00 97.0 78 20 92/48 100 Mechanical Ventilator 09/06/16 03:34 68 09/06/16 02:56 78 16 30 09/06/16 01:05 73 17 30 09/06/16 00:00 30 09/06/16 00:00 97.8 72 19 105/59 100 Mechanical Ventilator 09/06/16 00:00 76 09/05/16 22:40 76 18 30 09/05/16 21:00 70 14 30 09/05/16 20:00 30 09/05/16 20:00 97.5 78 16 100/52 100 Mechanical Ventilator 09/05/16 20:00 73 09/05/16 19:20 73 14 30 09/05/16 17:30 97.7 09/05/16 17:02 83 21 30 09/05/16 16:00 30 09/05/16 16:00 82 09/05/16 16:00 97.7 82 16 99/52 99 Mechanical Ventilator 09/05/16 14:32 82 18 30 09/05/16 12:36 88 14 30 09/05/16 12:00 97.7 74 14 87/53 98 Mechanical Ventilator 30 09/05/16 12:00 78 Intake and Output 09/05/16 09/06/16 19:00 07:00 Intake Total 55 ml 156.0 ml Output Total 350 ml 250 ml Balance -295 ml -94.0 ml Intake IV Total 55 ml 156.0 ml Output Urine Total 350 ml 250 ml # Bowel Movements 5 5 General Appearance: cachetic HEENT: normocephalic, anicteric Respiratory/Chest: chest wall non-tender, lungs clear Cardiovascular: normal peripheral pulses, regular rhythm Abdomen: normal bowel sounds, soft, non tender Extremities: no cyanosis 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, abnormal gait Lymphatic: no neck adenopathy Microbiology Date/Time Source Procedure Growth Status 09/04/16 16:19 Urine,Clean Catch Urine Culture - Preliminary Gram Negative Bacillus 1 Gram Negative Bacillus 2 Resulted 09/05/16 04:50 Sacral Wound Gram Stain Pending Resulted 09/05/16 04:50 Sacral Wound Wound Culture - Preliminary Resulted 09/04/16 23:40 Rectum VRE Culture - Final Enterococcus Faecium - Vre Complete Laboratory Tests 09/05/16 15:10: Stool Occult Blood [Pending] 09/06/16 04:24: White Blood Count 5.7, Red Blood Count 2.54L, Hemoglobin 8.0L, Hematocrit 24.9L , Mean Corpuscular Volume 98, Mean Corpuscular Hemoglobin 31.5H, Mean Corpuscular Hemoglobin Concent 32.1, Red Cell Distribution Width 21.1H, Platelet Count 116L, Mean Platelet Volume 5.1L, Neutrophils (%) (Auto) 77.0H, Lymphocytes (%) (Auto) 10.3L, Monocytes (%) (Auto) 6.4, Eosinophils (%) (Auto) 5.5H, Basophils (%) (Auto) 0.9, Prothrombin Time 12.8H, Prothromb Time International Ratio 1.2H, Activated Partial Thromboplast Time 35H, Sodium Level 133L, Potassium Level 3.9, Chloride Level 94L, Carbon Dioxide Level 25, Anion Gap 14, Blood Urea Nitrogen 19, Creatinine 0.4L, Estimat Glomerular Filtration Rate > 60, Glucose Level 75, Calcium Level 8.0L, Phosphorus Level 4.7, Magnesium Level 1.9, Total Bilirubin 1.3H, Direct Bilirubin 0.5H, Aspartate Amino Transf (AST/SGOT) 24, Alanine Aminotransferase (ALT/SGPT) 13, Alkaline Phosphatase 208H, Total Protein 6.0L, Albumin 1.8L, Globulin 4.2, Albumin/ Globulin Ratio 0.4L Current Medications Medications (Trade) Dose Ordered Sig/Hair Route PRN Reason Start Time Stop Time Status Last Admin Dose Admin Acetaminophen (Tylenol) 650 mg Q4H PRN ORAL fever 09/04/16 19:00 10/04/16 18:59 Al Hydroxide/Mg Hydroxide (Mylanta II) 30 ml Q6H PRN ORAL dyspepsia 09/04/16 19:00 10/04/16 18:59 Dextrose (Dextrose 50%) STAT PRN IV Hypoglycemia 09/04/16 19:00 10/04/16 18:59 Furosemide (Lasix) 40 mg EVERY 12 HOURS ORAL 09/04/16 21:00 10/04/16 20:59 09/06/16 09:44 Lactulose (Cephulac) 30 gm EVERY 6 HOURS ORAL 09/05/16 21:00 10/05/16 20:59 09/06/16 05:10 Levetiracetam (Keppra) 1,500 mg Q12HR GT 09/04/16 21:00 10/04/16 20:59 09/06/16 09:45 Lorazepam (Ativan 2mg/ml 1ml) 0.5 mg Q4H PRN IV For Anxiety 09/04/16 19:00 09/11/16 18:59 Morphine Sulfate (Morphine Sulfate) 2 mg Q4H PRN IVP For Pain 4-10 09/04/16 19:00 09/11/16 18:59 09/05/16 17:04 Ondansetron HCl (Zofran) 4 mg Q6H PRN IVP Nausea & Vomiting 09/04/16 19:00 10/04/16 18:59 Pantoprazole 40 mg 40 mg DAILY ORAL 09/06/16 09:00 10/06/16 08:59 09/06/16 09:44 Piperacillin Sod/ Tazobactam Sod/ Dextrose (Zosyn/D5W) 110 ml @ 27.5 mls/hr EVERY 8 HOURS IVPB 09/05/16 14:00 09/12/16 13:59 09/06/16 05:10 Polyethylene Glycol (Miralax) 17 gm HSPRN PRN ORAL Constipation 09/04/16 19:00 10/04/16 18:59 Zolpidem Tartrate (Ambien) 5 mg HSPRN PRN ORAL Insomnia 09/04/16 19:00 10/04/16 18:59 DANTE HSIEH Sep 06, 2016 11:12
--- NOTE | 2016-09-06 11:40 | General Progress Note ---
Assessment/Plan Assessment/Plan ASSESSMENT/RECS: 1. Coagulopathy secondary to underlying liver disease and history of liver malignancy as well. Secondary to hepatitis C 2. Hepatitis C history. 3. Microcytosis --> has improved 4. Cirrhosis/Hepatitic C. 5. Anemia secondary to chronic disease. 6. Esophageal varices s/p banding. 7. Hepatic encephalopathy. 8. Altered mental status. 9. Status post paracentesis. 10. correction resident. 11. Venous ulceration. 12. Helicobacter pylori infection. Subjective Date patient seen: Sep 05, 2016 Constitutional: Reports: no symptoms HEENT: Reports: no symptoms Cardiovascular: Reports: no symptoms Respiratory: Reports: cough Gastrointestinal/Abdominal: Reports: no symptoms Genitourinary: Reports: no symptoms Neurologic/Psychiatric: Reports: anxiety Endocrine: Reports: no symptoms Hematologic/Lymphatic: Reports: anemia Allergies: Coded Allergies: No Known Allergies (Unverified , 06/09/16) Subjective no events, continues to get daily labs drawn, hgb has been >8 Objective Last 24 Hour Vital Signs Date Time Temp Pulse Resp B/P Pulse Ox O2 Delivery O2 Flow Rate FiO2 09/06/16 11:10 98 18 30 09/06/16 09:19 88 17 30 09/06/16 08:00 97.2 78 20 83/51 100 Mechanical Ventilator 09/06/16 08:00 30 09/06/16 08:00 68 09/06/16 06:53 88 14 30 09/06/16 05:28 81 15 30 09/06/16 04:00 30 09/06/16 04:00 97.0 78 20 92/48 100 Mechanical Ventilator 09/06/16 03:34 68 09/06/16 02:56 78 16 30 09/06/16 01:05 73 17 30 09/06/16 00:00 30 09/06/16 00:00 97.8 72 19 105/59 100 Mechanical Ventilator 09/06/16 00:00 76 09/05/16 22:40 76 18 30 09/05/16 21:00 70 14 30 09/05/16 20:00 30 09/05/16 20:00 97.5 78 16 100/52 100 Mechanical Ventilator 09/05/16 20:00 73 09/05/16 19:20 73 14 30 09/05/16 17:30 97.7 09/05/16 17:02 83 21 30 09/05/16 16:00 30 09/05/16 16:00 82 09/05/16 16:00 97.7 82 16 99/52 99 Mechanical Ventilator 30 09/05/16 14:32 82 18 30 09/05/16 12:36 88 14 30 09/05/16 12:00 97.7 74 14 87/53 98 Mechanical Ventilator 30 09/05/16 12:00 78 Intake and Output 09/05/16 09/06/16 19:00 07:00 Intake Total 55 ml 156.0 ml Output Total 350 ml 250 ml Balance -295 ml -94.0 ml Intake IV Total 55 ml 156.0 ml Output Urine Total 350 ml 250 ml # Bowel Movements 5 5 Laboratory Tests 09/05/16 15:10: Stool Occult Blood Positive 09/06/16 04:24: White Blood Count 5.7, Red Blood Count 2.54L, Hemoglobin 8.0L, Hematocrit 24.9L , Mean Corpuscular Volume 98, Mean Corpuscular Hemoglobin 31.5H, Mean Corpuscular Hemoglobin Concent 32.1, Red Cell Distribution Width 21.1H, Platelet Count 116L, Mean Platelet Volume 5.1L, Neutrophils (%) (Auto) 77.0H, Lymphocytes (%) (Auto) 10.3L, Monocytes (%) (Auto) 6.4, Eosinophils (%) (Auto) 5.5H, Basophils (%) (Auto) 0.9, Prothrombin Time 12.8H, Prothromb Time International Ratio 1.2H, Activated Partial Thromboplast Time 35H, Sodium Level 133L, Potassium Level 3.9, Chloride Level 94L, Carbon Dioxide Level 25, Anion Gap 14, Blood Urea Nitrogen 19, Creatinine 0.4L, Estimat Glomerular Filtration Rate > 60, Glucose Level 75, Calcium Level 8.0L, Phosphorus Level 4.7, Magnesium Level 1.9, Total Bilirubin 1.3H, Direct Bilirubin 0.5H, Aspartate Amino Transf (AST/SGOT) 24, Alanine Aminotransferase (ALT/SGPT) 13, Alkaline Phosphatase 208H, Total Protein 6.0L, Albumin 1.8L, Globulin 4.2, Albumin/ Globulin Ratio 0.4L Height (Feet): 5 Height (Inches): 8.00 Weight (Pounds): 160 General Appearance: no apparent distress EENT: TMs normal Neck: normal inspection Cardiovascular: regular rhythm Respiratory/Chest: lungs clear Abdomen: soft Genitourinary/Rectal: heme negative stool Edema: 1+ Leg (L), 1+ Leg (R) Edema: mild edema Neurologic: alert Skin: normal pigmentation Art Mackenzie Sep 06, 2016 11:40
[2016-09-06 12:00] VITALS: BP 108/62
[2016-09-06] MEDS ORDERED: NS 275ml ONE (13:57)
[2016-09-06] MEDS ORDERED: Tubing IV Secondary IV ONE (13:57)
[2016-09-06] MEDS: Morphine Sulfate 2mg/ml Inj IVP PRN ×2 (14:16→21:33)
[2016-09-06 16:00] VITALS: BP 94/52
--- NOTE | 2016-09-06 16:51 | Infectious Diseases Prog Note ---
Assessment/Plan Assessment/Plan ASSESSMENT: 56-year-old male with multiple medical problems, who has been admitted to this medical center for leukocytosis and bleeding around peg in the setting of chronic coagulopathy, now with urinary catheter associated UTI. Prior ESBL E coli in his urine has been resistant to cefepime but susceptible to zosyn. pending r/o for SBP, but recent eval in July2016 was negative for SBP. His exam and CXR does not suggest pneumonia at this time although CXR shows very hypoventilatory lungs compromised by chronic massive ascites. Is afebrile, leukocytosis resolved s/p 1 dose of zosyn yesterday, and is hemodynamically stable. VRE colonized. cx of sacral wound pending. //GNR urinary catheter associated UTI, prior h/o ESBL E coli //hx of chronic ascites, july2016, neg for SBP //hx of recurrent HCAP/VAP SCx: Psa, Pr mirabilis, KPC //hx of polymicrobial bactermia (MRSA, M. morganii, Psa) with TTE negative for IE s/p treatment //hx of recurrent Stage IV sacral decubitus ulcer //HCV Ab+ //Negative HIV //Elevated alkaline phosphatase with negative HIDA scan 07/15 //Afebrile w/o leukocytosis //Elevated ESR, CRP //H. pylori on last EGD pending outpatient treatment //UGIB d/t esophageal ulcer and severe portal hypertensive gastropathy 07/22/16 s/p banding 08/20/16 //Chronic liver disease/cirrhosis with elevated LFTs US: reactive GB wall thickening CT: liver cirrhosis with stigmata of portal hypertension //chronic VDRF s/p trach and peg //h/o CVA //NH resident //MDRO colonized //NKDA PLAN: continue IV zosyn d2 pending results of admission urine culture monitor blood cx drawn yesterday pending paracentesis for gram stain, culture and cell count. wound care to area around peg follow CBC and temp curve. Subjective Constitutional: Reports: no symptoms Respiratory: Reports: dry cough Gastrointestinal/Abdominal: Reports: bloating Allergies: Coded Allergies: No Known Allergies (Unverified , 06/09/16) Objective Vital Signs Last 24 Hour Vital Signs Date Time Temp Pulse Resp B/P Pulse Ox O2 Delivery O2 Flow Rate FiO2 09/06/16 16:00 30 09/06/16 14:47 89 16 30 09/06/16 12:34 91 17 30 09/06/16 12:00 30 09/06/16 12:00 87 09/06/16 12:00 97.1 78 20 108/62 100 Mechanical Ventilator 30 09/06/16 11:10 98 18 30 09/06/16 09:19 88 17 30 09/06/16 08:00 97.2 78 20 83/51 100 Mechanical Ventilator 30 09/06/16 08:00 30 09/06/16 08:00 68 09/06/16 06:53 88 14 30 09/06/16 05:28 81 15 30 09/06/16 04:00 30 09/06/16 04:00 97.0 78 20 92/48 100 Mechanical Ventilator 30 09/06/16 03:34 68 09/06/16 02:56 78 16 30 09/06/16 01:05 73 17 30 09/06/16 00:00 30 09/06/16 00:00 97.8 72 19 105/59 100 Mechanical Ventilator 30 09/06/16 00:00 76 09/05/16 22:40 76 18 30 09/05/16 21:00 70 14 30 09/05/16 20:00 30 09/05/16 20:00 97.5 78 16 100/52 100 Mechanical Ventilator 30 09/05/16 20:00 73 09/05/16 19:20 73 14 30 09/05/16 17:30 97.7 09/05/16 17:02 83 21 30 Height (Feet): 5 Height (Inches): 8.00 Weight (Pounds): 160 General Appearance: no acute distress, other - on vent support with trach HEENT: anicteric Respiratory/Chest: decreased breath sounds, other - scant but tenacious trach aspirate Cardiovascular: normal rate, regular rhythm Abdomen: distended - scant thick discharge around peg w/o erythema. , tender Genitourinary: normal external genitalia, other - cervantes in place Extremities: no edema Skin: no rash Microbiology Date/Time Source Procedure Growth Status 09/04/16 16:19 Urine,Clean Catch Urine Culture - Preliminary Gram Negative Bacillus 1 Gram Negative Bacillus 2 Resulted 09/05/16 04:50 Sacral Wound Gram Stain Pending Resulted 09/05/16 04:50 Sacral Wound Wound Culture - Preliminary Resulted 09/04/16 23:40 Rectum VRE Culture - Final Enterococcus Faecium - Vre Complete Laboratory Tests Test 09/06/16 04:24 White Blood Count 5.7 K/UL (4.8-10.8) Red Blood Count 2.54 M/UL (4.70-6.10) L Hemoglobin 8.0 G/DL (14.2-18.0) L Hematocrit 24.9 % (42.0-52.0) L Mean Corpuscular Volume 98 FL (80-99) Mean Corpuscular Hemoglobin 31.5 PG (27.0-31.0) H Mean Corpuscular Hemoglobin Concent 32.1 G/DL (32.0-36.0) Red Cell Distribution Width 21.1 % (11.6-14.8) H Platelet Count 116 K/UL (150-450) L Mean Platelet Volume 5.1 FL (6.5-10.1) L Neutrophils (%) (Auto) 77.0 % (45.0-75.0) H Lymphocytes (%) (Auto) 10.3 % (20.0-45.0) L Monocytes (%) (Auto) 6.4 % (1.0-10.0) Eosinophils (%) (Auto) 5.5 % (0.0-3.0) H Basophils (%) (Auto) 0.9 % (0.0-2.0) Prothrombin Time 12.8 SEC (9.30-11.50) H Prothromb Time International Ratio 1.2 (0.9-1.1) H Activated Partial Thromboplast Time 35 SEC (23-33) H Sodium Level 133 mEQ/L (135-145) L Potassium Level 3.9 mEQ/L (3.4-4.9) Chloride Level 94 mEQ/L (98-107) L Carbon Dioxide Level 25 mEQ/L (20-30) Anion Gap 14 (5-15) Blood Urea Nitrogen 19 mg/dL (7-23) Creatinine 0.4 mg/dL (0.7-1.2) L Estimat Glomerular Filtration Rate > 60 mL/min (>60) Glucose Level 75 mg/dL (74-106) Calcium Level 8.0 mg/dL (8.6-10.2) L Phosphorus Level 4.7 mg/dL (2.5-4.8) Magnesium Level 1.9 mg/dL (1.7-2.5) Total Bilirubin 1.3 mg/dL (0.0-1.2) H Direct Bilirubin 0.5 mg/dL (0.1-0.3) H Aspartate Amino Transf (AST/SGOT) 24 U/L (5-40) Alanine Aminotransferase (ALT/SGPT) 13 U/L (3-41) Alkaline Phosphatase 208 U/L (40-129) H Total Protein 6.0 g/dL (6.6-8.7) L Albumin 1.8 g/dL (3.5-5.2) L Globulin 4.2 g/dL Albumin/Globulin Ratio 0.4 (1.0-2.7) L Current Medications Medications (Trade) Dose Ordered Sig/Hair Route PRN Reason Start Time Stop Time Status Last Admin Dose Admin Acetaminophen (Tylenol) 650 mg Q4H PRN ORAL fever 09/04/16 19:00 10/04/16 18:59 Al Hydroxide/Mg Hydroxide (Mylanta II) 30 ml Q6H PRN ORAL dyspepsia 09/04/16 19:00 10/04/16 18:59 Dextrose (Dextrose 50%) STAT PRN IV Hypoglycemia 09/04/16 19:00 10/04/16 18:59 Furosemide (Lasix) 40 mg EVERY 12 HOURS ORAL 09/04/16 21:00 10/04/16 20:59 09/06/16 09:44 Lactulose (Cephulac) 30 gm EVERY 6 HOURS ORAL 09/05/16 21:00 10/05/16 20:59 09/06/16 14:15 Levetiracetam (Keppra) 1,500 mg Q12HR GT 09/04/16 21:00 10/04/16 20:59 09/06/16 09:45 Lorazepam (Ativan 2mg/ml 1ml) 0.5 mg Q4H PRN IV For Anxiety 09/04/16 19:00 09/11/16 18:59 Morphine Sulfate (Morphine Sulfate) 2 mg Q4H PRN IVP For Pain 4-10 09/04/16 19:00 09/11/16 18:59 09/06/16 14:16 Ondansetron HCl (Zofran) 4 mg Q6H PRN IVP Nausea & Vomiting 09/04/16 19:00 10/04/16 18:59 Pantoprazole 40 mg 40 mg DAILY ORAL 09/06/16 09:00 10/06/16 08:59 09/06/16 09:44 Piperacillin Sod/ Tazobactam Sod/ Dextrose (Zosyn/D5W) 110 ml @ 27.5 mls/hr EVERY 8 HOURS IVPB 09/05/16 14:00 09/12/16 13:59 09/06/16 14:16 Polyethylene Glycol (Miralax) 17 gm HSPRN PRN ORAL Constipation 09/04/16 19:00 10/04/16 18:59 Zolpidem Tartrate (Ambien) 5 mg HSPRN PRN ORAL Insomnia 09/04/16 19:00 10/04/16 18:59 Devang Ford M.D. Sep 06, 2016 16:51
[2016-09-06 20:00] VITALS: BP 108/59
--- NOTE | 2016-09-06 23:42 | General Progress Note ---
Assessment/Plan Assessment/Plan ASSESSMENT/RECS: 1. Coagulopathy secondary to underlying liver disease and history of liver malignancy as well. Secondary to hepatitis C 2. Hepatitis C history. 3. Microcytosis --> has improved 4. Cirrhosis/Hepatitic C. 5. Anemia secondary to chronic disease. 6. Esophageal varices s/p banding. 7. Hepatic encephalopathy. 8. Altered mental status. 9. Status post paracentesis. 10. group home resident. 11. Venous ulceration. 12. Helicobacter pylori infection. Subjective Constitutional: Reports: no symptoms HEENT: Reports: no symptoms Cardiovascular: Reports: no symptoms Respiratory: Reports: no symptoms Gastrointestinal/Abdominal: Reports: no symptoms Genitourinary: Reports: no symptoms Neurologic/Psychiatric: Reports: no symptoms Endocrine: Reports: no symptoms Hematologic/Lymphatic: Reports: anemia Allergies: Coded Allergies: No Known Allergies (Unverified , 06/09/16) Subjective no events, continues to get daily labs drawn, hgb goal >8 Objective Last 24 Hour Vital Signs Date Time Temp Pulse Resp B/P Pulse Ox O2 Delivery O2 Flow Rate FiO2 09/06/16 22:32 91 23 30 09/06/16 22:03 97.2 09/06/16 21:20 95 16 30 09/06/16 20:00 30 09/06/16 20:00 97.8 79 19 108/59 100 Mechanical Ventilator 09/06/16 19:37 90 09/06/16 19:25 95 15 09/06/16 16:56 96 19 30 09/06/16 16:00 30 09/06/16 16:00 80 09/06/16 16:00 97.2 84 19 94/52 100 Mechanical Ventilator 09/06/16 14:47 89 16 30 09/06/16 12:34 91 17 30 09/06/16 12:00 30 09/06/16 12:00 87 09/06/16 12:00 97.1 78 20 108/62 100 Mechanical Ventilator 09/06/16 11:10 98 18 30 09/06/16 09:19 88 17 30 09/06/16 08:00 97.2 78 20 83/51 100 Mechanical Ventilator 09/06/16 08:00 30 09/06/16 08:00 68 09/06/16 06:53 88 14 30 09/06/16 05:28 81 15 30 09/06/16 04:00 30 09/06/16 04:00 97.0 78 20 92/48 100 Mechanical Ventilator 30 09/06/16 03:34 68 09/06/16 02:56 78 16 30 09/06/16 01:05 73 17 30 09/06/16 00:00 30 09/06/16 00:00 97.8 72 19 105/59 100 Mechanical Ventilator 30 09/06/16 00:00 76 Intake and Output 09/05/16 09/06/16 19:00 07:00 Intake Total 55 ml 156.0 ml Output Total 350 ml 250 ml Balance -295 ml -94.0 ml IV Total 55 ml 156.0 ml Output Urine Total 350 ml 250 ml # Bowel Movements 5 5 Laboratory Tests 09/06/16 04:24: White Blood Count 5.7, Red Blood Count 2.54L, Hemoglobin 8.0L, Hematocrit 24.9L , Mean Corpuscular Volume 98, Mean Corpuscular Hemoglobin 31.5H, Mean Corpuscular Hemoglobin Concent 32.1, Red Cell Distribution Width 21.1H, Platelet Count 116L, Mean Platelet Volume 5.1L, Neutrophils (%) (Auto) 77.0H, Lymphocytes (%) (Auto) 10.3L, Monocytes (%) (Auto) 6.4, Eosinophils (%) (Auto) 5.5H, Basophils (%) (Auto) 0.9, Prothrombin Time 12.8H, Prothromb Time International Ratio 1.2H, Activated Partial Thromboplast Time 35H, Sodium Level 133L, Potassium Level 3.9, Chloride Level 94L, Carbon Dioxide Level 25, Anion Gap 14, Blood Urea Nitrogen 19, Creatinine 0.4L, Estimat Glomerular Filtration Rate > 60, Glucose Level 75, Calcium Level 8.0L, Phosphorus Level 4.7, Magnesium Level 1.9, Total Bilirubin 1.3H, Direct Bilirubin 0.5H, Aspartate Amino Transf (AST/SGOT) 24, Alanine Aminotransferase (ALT/SGPT) 13, Alkaline Phosphatase 208H, Total Protein 6.0L, Albumin 1.8L, Globulin 4.2, Albumin/ Globulin Ratio 0.4L Height (Feet): 5 Height (Inches): 8.00 Weight (Pounds): 160 General Appearance: no apparent distress EENT: pharynx normal Neck: normal alignment Cardiovascular: no gallop/murmur Respiratory/Chest: normal breath sounds Abdomen: soft Extremities: normal inspection Edema: 1+ Leg (L), 1+ Leg (R) Edema: mild edema Neurologic: alert Skin: warm/dry Art Mackenzie Sep 06, 2016 23:42
[2016-09-07] VITALS: BP 94/49
[2016-09-07] MEDS: Lactulose 20gm/30ml UDC ORAL SCH ×5 (00:16→23:34)
[2016-09-07 04:00] VITALS: BP 104/51
[2016-09-07 04:50] LABS: BASOPHILS % (AUTO) 0.7 % (0.0-2.0); EOSINOPHILS % (AUTO) 5.3 % (0.0-3.0); LYMPHOCYTES % (AUTO) 12.2 % (20.0-45.0); MEAN CORPUSCULAR HEMOGLOBIN 32.6 PG (27.0-31.0); MEAN CORPUSCULAR HGB CONC 32.9 G/DL (32.0-36.0); MEAN CORPUSCULAR VOLUME 99 FL (80-99); MEAN PLATELET VOLUME 5.3 FL (6.5-10.1); MONOCYTES % (AUTO) 7.2 % (1.0-10.0); NEUTROPHILS % (AUTO) 74.6 % (45.0-75.0); PLATELET COUNT 129 K/UL (150-450); RED BLOOD COUNT 2.63 M/UL (4.70-6.10); RED CELL DISTRIBUTION WIDTH 22.1 % (11.6-14.8); WHITE BLOOD COUNT 5.6 K/UL (4.8-10.8)
[2016-09-07 05:19] LABS: CRP QUANT 4.8 mg/dL (< 0.5); PHOSPHORUS 4.3 mg/dL (2.5-4.8)
[2016-09-07 05:21] LABS: ALANINE AMINOTRANSFERASE 14 U/L (3-41); ALBUMIN/GLOBULIN RATIO 0.4 (1.0-2.7); ANION GAP 20 (5-15); ASPARTATE AMINO TRANSFERASE 27 U/L (5-40); CALCIUM 8.1 mg/dL (8.6-10.2); CARBON DIOXIDE 21 mEQ/L (20-30); CHLORIDE 96 mEQ/L (98-107); CREATININE 0.4 mg/dL (0.7-1.2); GLOMERULAR FILTRATION RATE > 60 mL/min (>60); HEMOLYSIS 4; POTASSIUM 3.1 mEQ/L (3.4-4.9); SODIUM 137 mEQ/L (135-145); TOTAL PROTEIN 6.4 g/dL (6.6-8.7)
[2016-09-07 06:13] LABS: BILIRUBIN,DIRECT 0.5 mg/dL (0.1-0.3)
[2016-09-07] MEDS: Piperacillin/Tazobactam 3.375 GM in D5W 110 ML IVPB SCH ×2 (06:19→15:11)
[2016-09-07 08:00] VITALS: BP 111/62
--- NOTE | 2016-09-07 08:38 | Diagnostic Imaging Report ---
Indication: G-tube check Comparison: None Single view of the abdomen obtained Contrast demonstrated within the distal part of the stomach. The gastrostomy tube tip is in the area of the antrum. There is contrast in the duodenum as well. No leak identified. Impression: Tip of the catheter is in the antrum of the stomach. There is no leak
--- NOTE | 2016-09-07 08:39 | Diagnostic Imaging Report ---
Indications: Abdominal pain and distention Technique: Continuous helical CT imaging of the abdomen and pelvis was performed with automatic exposure control following administration of oral and intravenous nonionic iodine contrast, on a Siemens sensation [address] scanner. Axial, coronal, and sagittal images were reconstructed at 5 mm slice thickness. CTDI volume(s): 20 mGy Total DLP: 1165 mGy-cm Findings: Comparison: 08/07/2016 Abdomen and pelvis are markedly distended. Large myositis has increased. Edema versus nodularity again noted in the omentum. Edema again noted throughout the mesentery. No extraluminal gas or fluid collections identified within the abdomen or pelvis. Oral contrast has passed throughout the gastrointestinal tract to the level of distal transverse colon. Entire tract nondilated. Appendix unremarkable. No obvious mural thickening. Again noted are probably calcified stones in the gallbladder lumen, 3 mm nonobstructing stone interpolar region of the right kidney, scattered arterial mural calcifications without obvious flow-limiting stenosis or occlusion, Colon catheter in urinary bladder, diffuse body wall edema, unchanged. Remainder visualized abdominopelvic anatomy demonstrates no other obvious acute abnormality. 6 cm loculated fluid collection with air-fluid level is now noted in a previous loculated right basal pleural effusion. Consolidation and volume loss of the adjacent right lung base persists. Small left pleural effusion and left lung base parenchymal consolidation and volume loss persists, decreased. Disc space narrowing with marginal osteophyte formation again noted in lower lumbar spine. Impression: Massive ascites, increased from previous exam Body wall, mesenteric, omental edema all suggest anasarca. Superimposed omental nodularity in the setting of carcinomatosis not excludable. Development of loculated gas and fluid collection in the posterior basal aspect of right hemithorax in region of previous loculated pleural effusion. This is most likely pleural in location. Appearance of gas may indicate infection, interval instrumentation, or development of bronchopleural fistula. Lung abscess not excludable. Decrease in but persistence of left pleural effusion Persistent pulmonary bibasal atelectasis, also decreased Other stable chronic changes as described This correlates with Dr. Galloway's preliminary report.
[2016-09-07] MEDS: levETIRAcetam 500mg/5ml Liquid GT SCH ×2 (09:57→21:06)
[2016-09-07] MEDS: Furosemide 40mg tab ORAL SCH ×2 (09:57→21:06)
[2016-09-07 11:47] LABS: OTHERS PATHOLOGIST COMMENT
[2016-09-07 12:00] VITALS: BP 97/58
--- NOTE | 2016-09-07 12:58 | GI Progress Note ---
Assessment/Plan Problems: (1) GI bleed ICD Codes: K92.2 - Gastrointestinal hemorrhage, unspecified SNOMED: 77856981 Qualifiers: Qualified Codes: K92.0 - Hematemesis (2) Liver cirrhosis ICD Codes: K74.60 - Unspecified cirrhosis of liver SNOMED: 90706070 (3) hep c (4) Feeding by G-tube ICD Codes: Z93.1 - Gastrostomy status SNOMED: 752950454, 262321281 (5) Esophageal varices determined by endoscopy ICD Codes: I85.00 - Esophageal varices without bleeding SNOMED: 07976084, 196914446 (6) Bleeding ICD Codes: R58 - Hemorrhage, not elsewhere classified SNOMED: 305600992 (7) Anemia due to blood loss, acute ICD Codes: D62 - Acute posthemorrhagic anemia SNOMED: 870186385 (8) large ascites Status: unchanged Status Narrative Discussed with Dr. Arndt. Assessment/Plan OB stool positive s/p EGD with banding 08/21/16 pt scheduled for colonoscopy tomorrow - hold GTF, NPO now. - hold all blood thinners fu paracentesis monitor H&H, transfuse prn ppi fu labs Subjective Subjective limited Objective Last 24 Hour Vital Signs Date Time Temp Pulse Resp B/P Pulse Ox O2 Delivery O2 Flow Rate FiO2 09/07/16 11:48 30 09/07/16 11:48 89 09/07/16 09:29 85 14 30 09/07/16 08:00 85 09/07/16 08:00 30 09/07/16 08:00 98.0 85 19 111/62 100 Mechanical Ventilator 30 09/07/16 07:17 96 17 30 09/07/16 04:44 90 17 30 09/07/16 04:00 89 09/07/16 04:00 30 09/07/16 04:00 98.0 89 19 104/51 100 Mechanical Ventilator 30 09/07/16 03:09 97 24 30 09/07/16 01:45 97 21 30 09/07/16 00:00 30 09/07/16 00:00 91 09/07/16 00:00 97.7 90 19 94/49 100 Mechanical Ventilator 30 09/06/16 22:32 91 23 30 09/06/16 22:03 97.2 7/9/17 21:20 95 16 30 09/06/16 20:00 30 09/06/16 20:00 97.8 79 19 108/59 100 Mechanical Ventilator 30 09/06/16 19:37 90 09/06/16 19:25 95 15 30 09/06/16 16:56 96 19 30 09/06/16 16:00 30 09/06/16 16:00 80 09/06/16 16:00 97.2 84 19 94/52 100 Mechanical Ventilator 30 09/06/16 14:47 89 16 30 Intake and Output 09/06/16 09/07/16 19:00 07:00 Intake Total 170.000 ml 640.0 ml Output Total 300 ml 400 ml Balance -130.000 ml 240.0 ml Intake Free Water 200 ml IV Total 110.000 ml 110.0 ml Tube Feeding 60 ml 330 ml Output Urine Total 300 ml 400 ml # Bowel Movements 3 7 Laboratory Tests Test 09/07/16 03:45 White Blood Count 5.6 K/UL (4.8-10.8) Red Blood Count 2.63 M/UL (4.70-6.10) L Hemoglobin 8.6 G/DL (14.2-18.0) L Hematocrit 26.0 % (42.0-52.0) L Mean Corpuscular Volume 99 FL (80-99) Mean Corpuscular Hemoglobin 32.6 PG (27.0-31.0) H Mean Corpuscular Hemoglobin Concent 32.9 G/DL (32.0-36.0) Red Cell Distribution Width 22.1 % (11.6-14.8) H Platelet Count 129 K/UL (150-450) L Mean Platelet Volume 5.3 FL (6.5-10.1) L Neutrophils (%) (Auto) 74.6 % (45.0-75.0) Lymphocytes (%) (Auto) 12.2 % (20.0-45.0) L Monocytes (%) (Auto) 7.2 % (1.0-10.0) Eosinophils (%) (Auto) 5.3 % (0.0-3.0) H Basophils (%) (Auto) 0.7 % (0.0-2.0) Erythrocyte Sedimentation Rate 124 MM/HR (0-20) H Sodium Level 137 mEQ/L (135-145) Potassium Level 3.1 mEQ/L (3.4-4.9) L Chloride Level 96 mEQ/L (98-107) L Carbon Dioxide Level 21 mEQ/L (20-30) Anion Gap 20 (5-15) H Blood Urea Nitrogen 15 mg/dL (7-23) Creatinine 0.4 mg/dL (0.7-1.2) L Estimat Glomerular Filtration Rate > 60 mL/min (>60) Glucose Level 92 mg/dL (74-106) Calcium Level 8.1 mg/dL (8.6-10.2) L Phosphorus Level 4.3 mg/dL (2.5-4.8) Magnesium Level 2.0 mg/dL (1.7-2.5) Total Bilirubin 1.3 mg/dL (0.0-1.2) H Direct Bilirubin 0.5 mg/dL (0.1-0.3) H Aspartate Amino Transf (AST/SGOT) 27 U/L (5-40) Alanine Aminotransferase (ALT/SGPT) 14 U/L (3-41) Alkaline Phosphatase 221 U/L (40-129) H C-Reactive Protein, Quantitative 4.8 mg/dL (< 0.5) H Total Protein 6.4 g/dL (6.6-8.7) L Albumin 1.9 g/dL (3.5-5.2) L Globulin 4.5 g/dL Albumin/Globulin Ratio 0.4 (1.0-2.7) L Height (Feet): 5 Height (Inches): 8.00 Weight (Pounds): 160 General Appearance: no apparent distress, alert, thin Cardiovascular: normal rate Respiratory/Chest: other - [facility] vent Abdominal Exam: site - c/d/i Paulette Romero N.P. Sep 07, 2016 12:58
--- NOTE | 2016-09-07 14:08 | Wound Care Consultation ---
Wound Assessment Wound Assessment #1: Wound Number: #1 Wound Present on Admission: Yes New Wound: No Status Change of Wound: No Wound Location Body Site Modif: mid Wound Location Body Site: sacral Wound Type: pressure ulcer Marlin Test: Does not Marlin Pressure Ulcer Stage: IV/unstageable Wound Thickness: Full Thickness Wound Length: 5.5 Wound Width: 3.0 Wound Depth: 0.5 Percent of Wound [place]/Red: 90 Percent of Wound Bed Yellow/Wh: 10 - scattered Wound Drainage Description: Serosanguineous Wound Drainage Amount: Copious Wound Drainage Odor: None/Absent Tissue Surrounding Wound: Macerated Wound Undermining at 12:00: 1.0 Wound Undermining at 3:00: 3.0 Wound Undermining at 6:00: 5.0 Wound Undermining at 9:00: 1.0 Wound General Appearance: Reddened, Draining, Necrotic - scattered, Muscle Visible Wound Assessment #2: Wound Number: #2 Wound Present on Admission: Yes New Wound: No Status Change of Wound: No Wound Location Body Site Modif: right Wound Location Body Site: buttocks Wound Type: other - self inflicted scattered scratches. Marlin Test: Does not Marlin Wound Thickness: Partial Thickness Percent of Wound [place]/Red: 100 - scattered. Wound Drainage Amount: None Wound Drainage Odor: None/Absent Tissue Surrounding Wound: Erythemic Wound General Appearance: Reddened Wound Comment #1 Mid sacral pressure ulcer stage IV. #2 surrounding sacral wound full thickness scar tissue. #3 Right buttocks scattered self inflicted scratches. RECOMMENDATION. -Local wound care as ordered. -Offload affected area. -Turn and reposition. -Keep clean and dry. -Optimize nutrition. -Heel protectors. -Offload heels and feet. -Assess and follow up with MD if noted any change of condition to skin. -Low air loss mattress for wound and skin management and prevention. LATOYA VAN Sep 07, 2016 14:08
--- NOTE | 2016-09-07 14:29 | Diagnostic Imaging Report ---
APPROVED REPORT CPT Code: 52947 Present Symptoms Lower Extremity Pain: Bilateral Lower Extremity Edema: Bilateral BILATERAL: Imaging reveals a patent deep venous system bilaterally. There is no evidence of thrombus within the femoral, popliteal or tibial segments. The greater saphenous veins are also within normal limits. Doppler indicates normal spontaneous flow within these segments. INCIDENTAL FINDING: A Montoya's cyst measuring 5x4x1.8cm is seen at the right popliteal fossa.
[2016-09-07 16:00] VITALS: BP 105/40
[2016-09-07] MEDS ORDERED: Nulytely 4L ORAL ONE (16:00)
--- NOTE | 2016-09-07 16:52 | Diagnostic Imaging Report ---
Indications: Ascites Technique: Ultrasound used to localize optimal puncture site. Sterile prepping and draping . Local anesthesia with 1% lidocaine. Under real-time ultrasound guidance, puncture peritoneal space using paracentesis needle. Stylet removed. Catheter placed to vacuum bottle suction. Total 12.6 liters of fluid aspirated. Patient tolerated procedure well, without immediate complication. Findings: Followup sonography demonstrates complete resolution of peritoneal fluid. Impression: Successful ultrasound-guided paracentesis, yielding 12.6 liters of clear yellow fluid
[2016-09-07] MEDS ORDERED: Tigecycline 100 MG in D5W 110 ML IVPB ONE (17:00)
--- NOTE | 2016-09-07 17:29 | Infectious Diseases Prog Note ---
Assessment/Plan Assessment/Plan ASSESSMENT: 56-year-old male with cirrhosis and end -stage liver disease with recurrent ascites, h/o multiple drug resistent infection, admitted 09/04/16 for leukocytosis and bleeding around peg in the setting of chronic coagulopathy, now with urinary catheter associated UTI growing a KPC and ESBL E coli. Prior ESBL E coli in his urine has been resistant to cefepime but susceptible to zosyn , but this KPC confirmed today is resistant to zosyn, sensitive to tigecycline. pending r/o for SBP with paracentesis this afternoon, but recent eval in July2016 was negative for SBP. His exam and CXR does not suggest pneumonia at this time although CXR shows very hypoventilatory lungs compromised by chronic massive ascites. Is afebrile, leukocytosis resolved on hospital day 2, and is hemodynamically stable. VRE colonized. cx of sacral wound is polymicrobial and consider this colonizers. //KPC and ESBL C byron urinary catheter associated UTI, prior h/o ESBL E coli //hx of chronic ascites, july2016, neg for SBP //hx of recurrent HCAP/VAP SCx: Psa, Pr mirabilis, KPC //hx of polymicrobial bactermia (MRSA, M. morganii, Psa) with TTE negative for IE s/p treatment //hx of recurrent Stage IV sacral decubitus ulcer //HCV Ab+ //Negative HIV--09/04/16 //Elevated alkaline phosphatase with negative HIDA scan 07/15 //Afebrile w/o leukocytosis //Elevated ESR, CRP //H. pylori on last EGD pending outpatient treatment //UGIB d/t esophageal ulcer and severe portal hypertensive gastropathy 07/22/16 s/p banding 08/20/16 //Chronic liver disease/cirrhosis with elevated LFTs US: reactive GB wall thickening CT: liver cirrhosis with stigmata of portal hypertension //chronic VDRF s/p trach and peg //h/o CVA //[facility] resident //MDRO colonized //NKDA PLAN: Start tigecycline 100mg IV x1 now then dose for Child-Man Class C at 25mg iv q12hr. will ask micro lab to check his urine KPC for colistin sensitivity d/c zosyn d#3continue IV zosyn d2 pending results of admission urine culture monitor blood cx ngtd monitor results of today's paracentesis for gram stain, culture and cell count. wound care to area around peg follow CBC and temp curve. Subjective ROS Limited/Unobtainable: Yes Allergies: Coded Allergies: No Known Allergies (Unverified , 06/09/16) Objective Vital Signs Last 24 Hour Vital Signs Date Time Temp Pulse Resp B/P Pulse Ox O2 Delivery O2 Flow Rate FiO2 09/07/16 16:02 92 09/07/16 16:02 30 09/07/16 16:00 97.7 93 15 105/40 100 Mechanical Ventilator 30 09/07/16 15:17 97 15 30 09/07/16 12:46 90 14 30 09/07/16 12:00 97.5 79 19 97/58 100 Mechanical Ventilator 30 09/07/16 11:48 30 09/07/16 11:48 89 09/07/16 10:35 94 14 30 09/07/16 09:29 85 14 30 09/07/16 08:00 85 09/07/16 08:00 30 09/07/16 08:00 98.0 85 19 111/62 100 Mechanical Ventilator 30 09/07/16 07:17 96 17 30 09/07/16 04:44 90 17 30 09/07/16 04:00 89 09/07/16 04:00 30 09/07/16 04:00 98.0 89 19 104/51 100 Mechanical Ventilator 30 09/07/16 03:09 97 24 30 09/07/16 01:45 97 21 30 09/07/16 00:00 30 09/07/16 00:00 91 09/07/16 00:00 97.7 90 19 94/49 100 Mechanical Ventilator 09/06/16 22:32 91 23 30 09/06/16 22:03 97.2 09/06/16 21:20 95 16 30 09/06/16 20:00 30 09/06/16 20:00 97.8 79 19 108/59 100 Mechanical Ventilator 09/06/16 19:37 90 09/06/16 19:25 95 15 30 Height (Feet): 5 Height (Inches): 8.00 Weight (Pounds): 160 General Appearance: no acute distress, cachetic HEENT: atraumatic Respiratory/Chest: rhonchi - bilaterally Cardiovascular: normal rate, regular rhythm Abdomen: other - abdomen much less distended s/p paracentesis this afternoon. 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, responsive Musculoskeletal: atrophy Microbiology Date/Time Source Procedure Growth Status 09/05/16 14:35 Blood Blood Culture - Preliminary NO GROWTH AFTER 24 HOURS Resulted 09/05/16 14:25 Blood Blood Culture - Preliminary NO GROWTH AFTER 24 HOURS Resulted 09/04/16 23:40 Nasal Nares MRSA Culture - Final Staphylococcus Aureus - Mrsa Complete 09/05/16 04:50 Sacral Wound Gram Stain Pending Resulted 09/05/16 04:50 Wound Culture - Preliminary Gram Negative Bacillus 1 YEAST Staphylococcus Sp Coag Neg Resulted 09/04/16 23:40 Rectum VRE Culture - Final Enterococcus Faecium - Vre Complete Laboratory Tests Test 09/07/16 03:45 White Blood Count 5.6 K/UL (4.8-10.8) Red Blood Count 2.63 M/UL (4.70-6.10) L Hemoglobin 8.6 G/DL (14.2-18.0) L Hematocrit 26.0 % (42.0-52.0) L Mean Corpuscular Volume 99 FL (80-99) Mean Corpuscular Hemoglobin 32.6 PG (27.0-31.0) H Mean Corpuscular Hemoglobin Concent 32.9 G/DL (32.0-36.0) Red Cell Distribution Width 22.1 % (11.6-14.8) H Platelet Count 129 K/UL (150-450) L Mean Platelet Volume 5.3 FL (6.5-10.1) L Neutrophils (%) (Auto) 74.6 % (45.0-75.0) Lymphocytes (%) (Auto) 12.2 % (20.0-45.0) L Monocytes (%) (Auto) 7.2 % (1.0-10.0) Eosinophils (%) (Auto) 5.3 % (0.0-3.0) H Basophils (%) (Auto) 0.7 % (0.0-2.0) Erythrocyte Sedimentation Rate 124 MM/HR (0-20) H Sodium Level 137 mEQ/L (135-145) Potassium Level 3.1 mEQ/L (3.4-4.9) L Chloride Level 96 mEQ/L (98-107) L Carbon Dioxide Level 21 mEQ/L (20-30) Anion Gap 20 (5-15) H Blood Urea Nitrogen 15 mg/dL (7-23) Creatinine 0.4 mg/dL (0.7-1.2) L Estimat Glomerular Filtration Rate > 60 mL/min (>60) Glucose Level 92 mg/dL (74-106) Calcium Level 8.1 mg/dL (8.6-10.2) L Phosphorus Level 4.3 mg/dL (2.5-4.8) Magnesium Level 2.0 mg/dL (1.7-2.5) Total Bilirubin 1.3 mg/dL (0.0-1.2) H Direct Bilirubin 0.5 mg/dL (0.1-0.3) H Aspartate Amino Transf (AST/SGOT) 27 U/L (5-40) Alanine Aminotransferase (ALT/SGPT) 14 U/L (3-41) Alkaline Phosphatase 221 U/L (40-129) H C-Reactive Protein, Quantitative 4.8 mg/dL (< 0.5) H Total Protein 6.4 g/dL (6.6-8.7) L Albumin 1.9 g/dL (3.5-5.2) L Globulin 4.5 g/dL Albumin/Globulin Ratio 0.4 (1.0-2.7) L Current Medications Medications (Trade) Dose Ordered Sig/Hair Route PRN Reason Start Time Stop Time Status Last Admin Dose Admin Acetaminophen (Tylenol) 650 mg Q4H PRN ORAL fever 09/04/16 19:00 10/04/16 18:59 Al Hydroxide/Mg Hydroxide (Mylanta II) 30 ml Q6H PRN ORAL dyspepsia 09/04/16 19:00 10/04/16 18:59 Dextrose (Dextrose 50%) STAT PRN IV Hypoglycemia 09/04/16 19:00 10/04/16 18:59 Furosemide (Lasix) 40 mg EVERY 12 HOURS ORAL 09/04/16 21:00 10/04/16 20:59 09/07/16 09:57 Lactulose (Cephulac) 30 gm EVERY 6 HOURS ORAL 09/05/16 21:00 8/7/17 20:59 09/07/16 11:48 Levetiracetam (Keppra) 1,500 mg Q12HR GT 09/04/16 21:00 10/04/16 20:59 09/07/16 09:57 Lorazepam (Ativan 2mg/ml 1ml) 0.5 mg Q4H PRN IV For Anxiety 09/04/16 19:00 09/11/16 18:59 Morphine Sulfate (Morphine Sulfate) 2 mg Q4H PRN IVP For Pain 4-10 09/04/16 19:00 09/11/16 18:59 09/06/16 21:33 Ondansetron HCl (Zofran) 4 mg Q6H PRN IVP Nausea & Vomiting 09/04/16 19:00 10/04/16 18:59 Pantoprazole 40 mg 40 mg DAILY ORAL 09/06/16 09:00 10/06/16 08:59 09/07/16 09:57 Polyethylene Glycol (Miralax) 17 gm HSPRN PRN ORAL Constipation 09/04/16 19:00 10/04/16 18:59 Tigecycline 100 mg/Dextrose 110 ml @ 110 mls/hr ONCE ONCE IVPB 09/07/16 17:00 09/07/16 17:59 09/07/16 17:10 Tigecycline/ Dextrose (Tygacil/D5W) 110 ml @ 220 mls/hr Q12HR@0600,1800 IVPB 09/08/16 06:00 09/15/16 05:59 Zolpidem Tartrate (Ambien) 5 mg HSPRN PRN ORAL Insomnia 09/04/16 19:00 10/04/16 18:59 Devang Ford M.D. Sep 07, 2016 17:29
--- NOTE | 2016-09-07 18:37 | Pulmonology Progress Note ---
Assessment/Plan Problems: (1) GI bleed (2) Coagulopathy (3) Chronic respiratory failure (4) Liver cirrhosis (5) Ascites Assessment/Plan 12/5 liter of ascitic fluid removed NPO GI evaluation prn prbc iv fluids check electrolytes futile care. family ignorant of the facts. Subjective ROS Limited/Unobtainable: Yes Allergies: Coded Allergies: No Known Allergies (Unverified , 06/09/16) Objective Last 24 Hour Vital Signs Date Time Temp Pulse Resp B/P Pulse Ox O2 Delivery O2 Flow Rate FiO2 09/07/16 17:28 95 17 30 09/07/16 16:02 92 09/07/16 16:02 30 09/07/16 16:00 97.7 93 15 105/40 100 Mechanical Ventilator 30 09/07/16 15:17 97 15 30 09/07/16 12:46 90 14 30 09/07/16 12:00 97.5 79 19 97/58 100 Mechanical Ventilator 09/07/16 11:48 30 09/07/16 11:48 89 09/07/16 10:35 94 14 30 09/07/16 09:29 85 14 30 09/07/16 08:00 85 09/07/16 08:00 30 09/07/16 08:00 98.0 85 19 111/62 100 Mechanical Ventilator 30 09/07/16 07:17 96 17 30 09/07/16 04:44 90 17 30 09/07/16 04:00 89 09/07/16 04:00 30 09/07/16 04:00 98.0 89 19 104/51 100 Mechanical Ventilator 09/07/16 03:09 97 24 30 09/07/16 01:45 97 21 30 09/07/16 00:00 30 09/07/16 00:00 91 09/07/16 00:00 97.7 90 19 94/49 100 Mechanical Ventilator 09/06/16 22:32 91 23 30 09/06/16 22:03 97.2 09/06/16 21:20 95 16 30 09/06/16 20:00 30 09/06/16 20:00 97.8 79 19 108/59 100 Mechanical Ventilator 09/06/16 19:37 90 09/06/16 19:25 95 15 30 Intake and Output 09/06/16 09/07/16 19:00 07:00 Intake Total 170.000 ml 670.0 ml Output Total 300 ml 400 ml Balance -130.000 ml 270.0 ml Intake Free Water 200 ml IV Total 110.000 ml 110.0 ml Tube Feeding 60 ml 360 ml Output Urine Total 300 ml 400 ml # Bowel Movements 3 7 General Appearance: cachetic HEENT: normocephalic, atraumatic Respiratory/Chest: chest wall non-tender, lungs clear Cardiovascular: normal peripheral pulses, normal rate Abdomen: normal bowel sounds, soft, non tender, no organomegaly Microbiology Date/Time Source Procedure Growth Status 09/05/16 14:35 Blood Blood Culture - Preliminary NO GROWTH AFTER 24 HOURS Resulted 09/05/16 14:25 Blood Blood Culture - Preliminary NO GROWTH AFTER 24 HOURS Resulted 09/04/16 23:40 Nasal Nares MRSA Culture - Final Staphylococcus Aureus - Mrsa Complete 09/05/16 04:50 Sacral Wound Gram Stain Pending Resulted 09/05/16 04:50 Wound Culture - Preliminary Gram Negative Bacillus 1 YEAST Staphylococcus Sp Coag Neg Resulted 09/04/16 23:40 Rectum VRE Culture - Final Enterococcus Faecium - Vre Complete Laboratory Tests 09/07/16 03:45: White Blood Count 5.6, Red Blood Count 2.63L, Hemoglobin 8.6L, Hematocrit 26.0L , Mean Corpuscular Volume 99, Mean Corpuscular Hemoglobin 32.6H, Mean Corpuscular Hemoglobin Concent 32.9, Red Cell Distribution Width 22.1H, Platelet Count 129L, Mean Platelet Volume 5.3L, Neutrophils (%) (Auto) 74.6, Lymphocytes (%) (Auto) 12.2L, Monocytes (%) (Auto) 7.2, Eosinophils (%) (Auto) 5.3H, Basophils (%) (Auto) 0.7, Erythrocyte Sedimentation Rate 124H, Sodium Level 137, Potassium Level 3.1L, Chloride Level 96L, Carbon Dioxide Level 21, Anion Gap 20H, Blood Urea Nitrogen 15, Creatinine 0.4L, Estimat Glomerular Filtration Rate > 60, Glucose Level 92, Calcium Level 8.1L, Phosphorus Level 4.3 , Magnesium Level 2.0, Total Bilirubin 1.3H, Direct Bilirubin 0.5H, Aspartate Amino Transf (AST/SGOT) 27, Alanine Aminotransferase (ALT/SGPT) 14, Alkaline Phosphatase 221H, C-Reactive Protein, Quantitative 4.8H, Total Protein 6.4L, Albumin 1.9L, Globulin 4.5, Albumin/Globulin Ratio 0.4L Current Medications Medications (Trade) Dose Ordered Sig/Hair Route PRN Reason Start Time Stop Time Status Last Admin Dose Admin Acetaminophen (Tylenol) 650 mg Q4H PRN ORAL fever 09/04/16 19:00 10/04/16 18:59 Al Hydroxide/Mg Hydroxide (Mylanta II) 30 ml Q6H PRN ORAL dyspepsia 09/04/16 19:00 10/04/16 18:59 Dextrose (Dextrose 50%) STAT PRN IV Hypoglycemia 09/04/16 19:00 10/04/16 18:59 Furosemide (Lasix) 40 mg EVERY 12 HOURS ORAL 09/04/16 21:00 10/04/16 20:59 09/07/16 09:57 Lactulose (Cephulac) 30 gm EVERY 6 HOURS ORAL 09/05/16 21:00 10/05/16 20:59 09/07/16 11:48 Levetiracetam (Keppra) 1,500 mg Q12HR GT 09/04/16 21:00 10/04/16 20:59 09/07/16 09:57 Lorazepam (Ativan 2mg/ml 1ml) 0.5 mg Q4H PRN IV For Anxiety 09/04/16 19:00 09/11/16 18:59 Morphine Sulfate (Morphine Sulfate) 2 mg Q4H PRN IVP For Pain 4-10 09/04/16 19:00 09/11/16 18:59 09/06/16 21:33 Ondansetron HCl (Zofran) 4 mg Q6H PRN IVP Nausea & Vomiting 09/04/16 19:00 10/04/16 18:59 Pantoprazole 40 mg 40 mg DAILY ORAL 09/06/16 09:00 10/06/16 08:59 09/07/16 09:57 Polyethylene Glycol (Miralax) 17 gm HSPRN PRN ORAL Constipation 09/04/16 19:00 10/04/16 18:59 Tigecycline/ Dextrose (Tygacil/D5W) 110 ml @ 220 mls/hr Q12HR@0600,1800 IVPB 09/08/16 06:00 09/15/16 05:59 Zolpidem Tartrate (Ambien) 5 mg HSPRN PRN ORAL Insomnia 09/04/16 19:00 10/04/16 18:59 DANTE HSIEH Sep 07, 2016 18:37
[2016-09-07 20:00] VITALS: BP 101/58
[2016-09-07] MEDS: Morphine Sulfate 2mg/ml Inj IVP PRN (21:09)
--- NOTE | 2016-09-07 22:43 | General Progress Note ---
Assessment/Plan Assessment/Plan ASSESSMENT/RECS: 1. Coagulopathy secondary to underlying liver disease and history of liver malignancy as well. Secondary to hepatitis C 2. Anemia 2/2 GI bleed --> Pending endoscopy in the am. 3. Microcytosis --> has improved 4. Coagulopathy secondary to underlying liver disease and history of liver malignancy as well. Secondary to hepatitis C 5. Anemia secondary to chronic disease. 6. Esophageal varices s/p banding. 7. Hepatic encephalopathy. 8. Cirrhosis. hepatitis C 9. Status post paracentesis. 10. shelter resident. 11. Venous ulceration. 12. Helicobacter pylori infection. Subjective Constitutional: Denies: chills, diaphoresis, fever, malaise, no symptoms, other , weakness HEENT: Denies: blurred vision, double vision, ear discharge, ear pain, eye pain , mouth pain, mouth swelling, no symptoms, nose congestion, nose pain, other, tearing, throat pain, throat swelling Cardiovascular: Denies: chest pain, edema, irregular heart rate, lightheadedness, no symptoms, other, palpitations, syncope Respiratory: Denies: SOB at rest, SOB with excertion, cough, no symptoms, orthopnea, other, shortness of breath, sputum, stridor, wheezing Gastrointestinal/Abdominal: Denies: abdomen distended, abdominal pain, black stools, blood in stool, constipated, diarrhea, difficulty swallowing, nausea, no symptoms, other, poor appetite, poor fluid intake, rectal bleeding, tarry stools, vomiting Genitourinary: Denies: burning, discharge, flank pain, frequency, hematuria, incontinence, no symptoms, other, pain, urgency Neurologic/Psychiatric: Denies: anxiety, depressed, emotional problems, headache, no symptoms, numbness, other, paresthesia, pre-existing deficit, seizure, tingling, tremors, weakness Allergies: Coded Allergies: No Known Allergies (Unverified , 06/09/16) Subjective pending endoscopy in the am Objective Last 24 Hour Vital Signs Date Time Temp Pulse Resp B/P Pulse Ox O2 Delivery O2 Flow Rate FiO2 09/07/16 21:10 91 18 30 09/07/16 20:00 30 09/07/16 20:00 98.0 99 16 101/58 99 Mechanical Ventilator 30 09/07/16 19:22 97 17 30 09/07/16 17:28 95 17 30 7/10/17 16:02 92 09/07/16 16:02 30 09/07/16 16:00 97.7 93 15 105/40 100 Mechanical Ventilator 30 09/07/16 15:17 97 15 30 09/07/16 12:46 90 14 30 09/07/16 12:00 97.5 79 19 97/58 100 Mechanical Ventilator 30 09/07/16 11:48 30 09/07/16 11:48 89 09/07/16 10:35 94 14 30 09/07/16 09:29 85 14 30 09/07/16 08:00 85 09/07/16 08:00 30 09/07/16 08:00 98.0 85 19 111/62 100 Mechanical Ventilator 30 09/07/16 07:17 96 17 30 09/07/16 04:44 90 17 30 09/07/16 04:00 89 09/07/16 04:00 30 09/07/16 04:00 98.0 89 19 104/51 100 Mechanical Ventilator 30 09/07/16 03:09 97 24 30 09/07/16 01:45 97 21 30 09/07/16 00:00 30 09/07/16 00:00 91 09/07/16 00:00 97.7 90 19 94/49 100 Mechanical Ventilator 30 Intake and Output 09/06/16 09/07/16 19:00 07:00 Intake Total 170.000 ml 670.0 ml Output Total 300 ml 400 ml Balance -130.000 ml 270.0 ml Intake Free Water 200 ml IV Total 110.000 ml 110.0 ml Tube Feeding 60 ml 360 ml Output Urine Total 300 ml 400 ml # Bowel Movements 3 7 Laboratory Tests 09/07/16 03:45: White Blood Count 5.6, Red Blood Count 2.63L, Hemoglobin 8.6L, Hematocrit 26.0L , Mean Corpuscular Volume 99, Mean Corpuscular Hemoglobin 32.6H, Mean Corpuscular Hemoglobin Concent 32.9, Red Cell Distribution Width 22.1H, Platelet Count 129L, Mean Platelet Volume 5.3L, Neutrophils (%) (Auto) 74.6, Lymphocytes (%) (Auto) 12.2L, Monocytes (%) (Auto) 7.2, Eosinophils (%) (Auto) 5.3H, Basophils (%) (Auto) 0.7, Erythrocyte Sedimentation Rate 124H, Sodium Level 137, Potassium Level 3.1L, Chloride Level 96L, Carbon Dioxide Level 21, Anion Gap 20H, Blood Urea Nitrogen 15, Creatinine 0.4L, Estimat Glomerular Filtration Rate > 60, Glucose Level 92, Calcium Level 8.1L, Phosphorus Level 4.3 , Magnesium Level 2.0, Total Bilirubin 1.3H, Direct Bilirubin 0.5H, Aspartate Amino Transf (AST/SGOT) 27, Alanine Aminotransferase (ALT/SGPT) 14, Alkaline Phosphatase 221H, C-Reactive Protein, Quantitative 4.8H, Total Protein 6.4L, Albumin 1.9L, Globulin 4.5, Albumin/Globulin Ratio 0.4L Height (Feet): 5 Height (Inches): 8.00 Weight (Pounds): 160 General Appearance: alert EENT: normal ENT inspection Cardiovascular: regular rhythm Respiratory/Chest: normal breath sounds Abdomen: non tender Extremities: non-tender Edema: no edema noted Leg (L), no edema noted Leg (R) Neurologic: alert Skin: warm/dry Art Mackenzie Sep 07, 2016 22:43
[2016-09-08 00:05] VITALS: BP 101/54
[2016-09-08] MEDS: LORazepam Inj 2mg/ml 1ml IV PRN (02:26)
[2016-09-08 04:00] VITALS: BP 109/62
[2016-09-08 05:17] LABS: BASOPHILS % (AUTO) 0.8 % (0.0-2.0); EOSINOPHILS % (AUTO) 2.7 % (0.0-3.0); LYMPHOCYTES % (AUTO) 7.8 % (20.0-45.0); MEAN CORPUSCULAR HEMOGLOBIN 32.2 PG (27.0-31.0); MEAN CORPUSCULAR VOLUME 101 FL (80-99); MEAN PLATELET VOLUME 6.1 FL (6.5-10.1); NEUTROPHILS % (AUTO) 82.7 % (45.0-75.0); PLATELET COUNT 109 K/UL (150-450); RED BLOOD COUNT 2.55 M/UL (4.70-6.10); RED CELL DISTRIBUTION WIDTH 22.4 % (11.6-14.8); WHITE BLOOD COUNT 5.1 K/UL (4.8-10.8)
[2016-09-08 05:40] LABS: ANION GAP 13 (5-15); CALCIUM 7.9 mg/dL (8.6-10.2); CARBON DIOXIDE 25 mEQ/L (20-30); CHLORIDE 105 mEQ/L (98-107); CREATININE 0.3 mg/dL (0.7-1.2); GLOMERULAR FILTRATION RATE > 60 mL/min (>60); HEMOLYSIS 1; POTASSIUM 3.2 mEQ/L (3.4-4.9); SODIUM 143 mEQ/L (135-145)
[2016-09-08] MEDS ORDERED: Tigecycline 50 MG in D5W 110 ML IVPB SCH (06:00)
[2016-09-08 06:05] LABS: INR 1.3 (0.9-1.1); PROTHROMBIN TIME 13.6 SEC (9.30-11.50)
[2016-09-08] MEDS: Lactulose 20gm/30ml UDC ORAL SCH ×4 (06:15→23:36)
[2016-09-08 08:00] VITALS: BP 105/58
[2016-09-08] MEDS ORDERED: Lidocaine 1% MPF 10mg/ml 5ml ONE (08:00)
[2016-09-08] MEDS ORDERED: LR 1000ml ONE (08:00)
[2016-09-08] MEDS ORDERED: Propofol 10mg/ml 20ml IV ONE (08:00)
[2016-09-08] MEDS ORDERED: Midazolam 2mg/2ml Inj ONE (08:00)
[2016-09-08] MEDS ORDERED: Alfentanil 2ml Inj ONE (08:00)
[2016-09-08] MEDS ORDERED: Ketamine 500mg Inj ONE (08:00)
--- NOTE | 2016-09-08 08:36 | Pre-Procedure Note/Attestation ---
Pre-Procedure Note/Attestation Complete Prior to Procedure Planned Procedure: not applicable Procedure Narrative: colonoscopy Indications for Procedure Pre-Operative Diagnosis: gib Attestation I attest that I discussed the nature of the procedure; its benefits; risks and complications; and alternatives (and the risks and benefits of such alternatives ), prior to the procedure, with the patient (or the patient's legal manufacturer's representative). I attest that, if there was a reasonable possibility of needing a blood transfusion, the patient (or the patient's legal manufacturer's representative) was given the [facility] standardized written summary, pursuant to the [place] Blood Safety Act ([place] Health and Safety Code # 1645, as amended). I attest that I re-evaluated the patient just prior to the surgery and that there has been no change in the patient's H&P, except as documented below: BRIA VELASQUEZ Sep 08, 2016 08:36
--- NOTE | 2016-09-08 08:45 | Pulmonology Progress Note ---
Assessment/Plan Problems: (1) GI bleed (2) Coagulopathy (3) Chronic respiratory failure (4) Liver cirrhosis (5) Ascites Assessment/Plan on tigecycline Respiratory: monitor respiratory rate Cardiac: continue to monitor HR/BP Renal: F/U I&O Infectious Disease: check cultures, continue antibiotics Gastrointestinal: continue feedings/current rate, hold feedings Endocrine: monitor blood sugar, check HgA1C, continue sliding scale insulin Hematologic: transfuse if hgb<8.5 Neurologic: PRN Ativan, keep patient comfortable Prophylaxis: Protonix, Heparin Notes Reviewed: cardio, renal Discussed with: nurses, consultants, housing case manager Subjective ROS Limited/Unobtainable: Yes Allergies: Coded Allergies: No Known Allergies (Unverified , 06/09/16) Objective Last 24 Hour Vital Signs Date Time Temp Pulse Resp B/P Pulse Ox O2 Delivery O2 Flow Rate FiO2 09/08/16 08:00 30 09/08/16 08:00 97.3 90 14 105/58 100 Mechanical Ventilator 09/08/16 07:13 71 30 30 09/08/16 05:30 110 14 30 09/08/16 04:00 97.5 98 14 109/62 99 Mechanical Ventilator 09/08/16 04:00 30 09/08/16 04:00 92 09/08/16 03:13 102 16 30 09/08/16 01:16 82 14 30 09/08/16 00:05 97.7 92 16 101/54 100 Mechanical Ventilator 09/08/16 00:00 93 09/08/16 00:00 30 09/07/16 23:23 95 20 30 09/07/16 21:10 91 18 30 09/07/16 20:00 98 09/07/16 20:00 30 09/07/16 20:00 98.0 99 16 101/58 99 Mechanical Ventilator 09/07/16 19:22 97 17 30 09/07/16 17:28 95 17 30 09/07/16 16:02 92 09/07/16 16:02 30 09/07/16 16:00 97.7 93 15 105/40 100 Mechanical Ventilator 30 09/07/16 15:17 97 15 30 09/07/16 12:46 90 14 30 09/07/16 12:00 97.5 79 19 97/58 100 Mechanical Ventilator 09/07/16 11:48 30 09/07/16 11:48 89 09/07/16 10:35 94 14 30 09/07/16 09:29 85 14 30 Intake and Output 09/07/16 09/08/16 19:00 07:00 Intake Total 2320 ml Output Total 350 ml 300 ml Balance 1970 ml -300 ml Intake Free Water 50 ml Tube Feeding 270 ml Other 2000 ml Output Urine Total 350 ml 300 ml General Appearance: cachetic HEENT: normocephalic, atraumatic Respiratory/Chest: chest wall non-tender, lungs clear Cardiovascular: normal peripheral pulses, normal rate Abdomen: normal bowel sounds, soft, non tender Genitourinary: normal external genitalia Extremities: no cyanosis Skin: no rash 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, no motor/sensory deficits, normal mood/affect Lymphatic: no neck adenopathy, no groin adenopathy Microbiology Date/Time Source Procedure Growth Status 09/05/16 14:35 Blood Blood Culture - Preliminary NO GROWTH AFTER 48 HOURS Resulted 09/05/16 14:25 Blood Blood Culture - Preliminary NO GROWTH AFTER 48 HOURS Resulted Laboratory Tests 09/08/16 04:10: White Blood Count 5.1, Red Blood Count 2.55L, Hemoglobin 8.2L, Hematocrit 25.7L , Mean Corpuscular Volume 101H, Mean Corpuscular Hemoglobin 32.2H, Mean Corpuscular Hemoglobin Concent 32.0, Red Cell Distribution Width 22.4H, Platelet Count 109L, Mean Platelet Volume 6.1L, Neutrophils (%) (Auto) 82.7H, Lymphocytes (%) (Auto) 7.8L, Monocytes (%) (Auto) 6.0, Eosinophils (%) (Auto) 2.7, Basophils (%) (Auto) 0.8, Prothrombin Time 13.6H, Prothromb Time International Ratio 1.3H, Activated Partial Thromboplast Time 35H, Sodium Level 143, Potassium Level 3.2L, Chloride Level 105, Carbon Dioxide Level 25, Anion Gap 13, Blood Urea Nitrogen 11, Creatinine 0.3L, Estimat Glomerular Filtration Rate > 60, Glucose Level 104, Calcium Level 7.9L Current Medications Medications (Trade) Dose Ordered Sig/Hair Route PRN Reason Start Time Stop Time Status Last Admin Dose Admin Acetaminophen (Tylenol) 650 mg Q4H PRN ORAL fever 09/04/16 19:00 8/6/17 18:59 Al Hydroxide/Mg Hydroxide (Mylanta II) 30 ml Q6H PRN ORAL dyspepsia 09/04/16 19:00 10/04/16 18:59 Dextrose (Dextrose 50%) STAT PRN IV Hypoglycemia 09/04/16 19:00 10/04/16 18:59 Furosemide (Lasix) 40 mg EVERY 12 HOURS ORAL 09/04/16 21:00 10/04/16 20:59 09/07/16 21:06 Lactulose (Cephulac) 30 gm EVERY 6 HOURS ORAL 09/05/16 21:00 10/05/16 20:59 09/08/16 06:15 Levetiracetam (Keppra) 1,500 mg Q12HR GT 09/04/16 21:00 10/04/16 20:59 09/07/16 21:06 Lorazepam (Ativan 2mg/ml 1ml) 0.5 mg Q4H PRN IV For Anxiety 09/04/16 19:00 09/11/16 18:59 09/08/16 02:26 Morphine Sulfate (Morphine Sulfate) 2 mg Q4H PRN IVP For Pain 4-10 09/04/16 19:00 09/11/16 18:59 09/07/16 21:09 Ondansetron HCl (Zofran) 4 mg Q6H PRN IVP Nausea & Vomiting 09/04/16 19:00 10/04/16 18:59 Pantoprazole 40 mg 40 mg DAILY ORAL 09/06/16 09:00 10/06/16 08:59 09/07/16 09:57 Polyethylene Glycol (Miralax) 17 gm HSPRN PRN ORAL Constipation 09/04/16 19:00 10/04/16 18:59 Tigecycline/ Dextrose (Tygacil/D5W) 110 ml @ 220 mls/hr Q12HR@0600,1800 IVPB 09/08/16 06:00 09/15/16 05:59 09/08/16 06:15 Zolpidem Tartrate (Ambien) 5 mg HSPRN PRN ORAL Insomnia 09/04/16 19:00 10/04/16 18:59 09/08/16 03:27 DANTE HSIEH Sep 08, 2016 08:45
--- NOTE | 2016-09-08 09:01 | Anethesia Preoperative Eval ---
Anesthesia Pre-op PMH/ROS General Date of Evaluation: Sep 08, 2016 Time of Evaluation: 08:26 Anesthesiologist: Ovi ASA Score: ASA 4 Mallampati Score Class I : Soft palate, uvula, fauces, pillars visible Class II: Soft palate, uvula, fauces visible Class III: Soft palate, base of uvula visible Class IV: Only hard plate visible Mallampati Classification: Class III Surgeon: Hair Diagnosis: Abd Pain Surgical Procedure: Colonoscopy Anesthesia History: none Social History: alcohol use, drug use - Abuse Family History: no anesthesia problems Allergies: Coded Allergies: No Known Allergies (Unverified , 06/09/16) Medications: see eMAR Past Medical History Cardiovascular: Reports: CAD, HTN Pulmonary: Reports: other - Trach- Vent Insuff Gastrointestinal/Genitourinary: Reports: GERD, other - Liver CA, Cirrohsis, Hep C Neurologic/Psychiatric: Reports: dementia Hematology/Immune: Reports: anemia, other - Hematuria PSxH Narrative: G tube Anesthesia Pre-op Phys. Exam Physician Exam Last Vital Signs Date Time Temp Pulse Resp B/P Pulse Ox O2 Delivery O2 Flow Rate FiO2 09/08/16 08:00 30 09/08/16 08:00 97.3 90 14 105/58 100 Mechanical Ventilator Constitutional: NAD Neurologic: CN 2-12 intact Cardiovascular: RRR Respiratory: CTA Gastrointestinal: S/NT/ND Airway Exam Mallampati Score: Class III MO: limited Neck: Trach ROM: limited Teeth: missing Anesthesia Pre-op A/P Labs Hematology Test 09/08/16 04:10 White Blood Count 5.1 K/UL (4.8-10.8) Red Blood Count 2.55 M/UL (4.70-6.10) L Hemoglobin 8.2 G/DL (14.2-18.0) L Hematocrit 25.7 % (42.0-52.0) L Mean Corpuscular Volume 101 FL (80-99) H Mean Corpuscular Hemoglobin 32.2 PG (27.0-31.0) H Mean Corpuscular Hemoglobin Concent 32.0 G/DL (32.0-36.0) Red Cell Distribution Width 22.4 % (11.6-14.8) H Platelet Count 109 K/UL (150-450) L Mean Platelet Volume 6.1 FL (6.5-10.1) L Neutrophils (%) (Auto) 82.7 % (45.0-75.0) H Lymphocytes (%) (Auto) 7.8 % (20.0-45.0) L Monocytes (%) (Auto) 6.0 % (1.0-10.0) Eosinophils (%) (Auto) 2.7 % (0.0-3.0) Basophils (%) (Auto) 0.8 % (0.0-2.0) Coagulation Test 09/08/16 04:10 Prothrombin Time 13.6 SEC (9.30-11.50) H Prothromb Time International Ratio 1.3 (0.9-1.1) H Activated Partial Thromboplast Time 35 SEC (23-33) H Chemistry Test 09/08/16 04:10 Sodium Level 143 mEQ/L (135-145) Potassium Level 3.2 mEQ/L (3.4-4.9) L Chloride Level 105 mEQ/L (98-107) Carbon Dioxide Level 25 mEQ/L (20-30) Anion Gap 13 (5-15) Blood Urea Nitrogen 11 mg/dL (7-23) Creatinine 0.3 mg/dL (0.7-1.2) L Estimat Glomerular Filtration Rate > 60 mL/min (>60) Glucose Level 104 mg/dL (74-106) Calcium Level 7.9 mg/dL (8.6-10.2) L Risk Assessment & Plan Assessment: ASA 4 Plan: GA Status Change Before Surgery: No Murtaza Dior MD Sep 08, 2016 09:01
--- NOTE | 2016-09-08 09:03 | Endoscopy Procedure Note ---
Endoscopy Procedure Note Indication for Procedure: gib Procedures Performed: colonoscopy Operative Findings/Diagnosis: hemorrhoids Specimen: none Pt Tolerated Procedure Well: Yes Estimated Blood Loss: none Anesthesiologist: wilmer Anesthesia: MAC Implant(s) used?: No 50 yrs or older w/o bx or poly: Not Applicable 10yrs. F/U not recommended: Not Applicable BRIA VELASQUEZ Sep 08, 2016 09:03
--- NOTE | 2016-09-08 09:11 | Immediate Post-Op Evaluation ---
Immediate Post-Op Evalulation Immediate Post-Op Evalulation Procedure: Colonoscopy Date of Evaluation: Sep 08, 2016 Time of Evaluation: 09:27 IV Fluids: 200 LR Blood Products: 0 Estimated Blood Loss: 2 Urinary Output: 0 Blood Pressure Systolic: 108 Blood Pressure Diastolic: 56 Pulse Rate: 82 Respiratory Rate: 14 - Mech Vent O2 Sat by Pulse Oximetry: 100 Temperature (Fahrenheit): 98.6 Pain Score (1-10): 3 Nausea: No Vomiting: No Complications 0 Patient Status: reacts, patent, ventilated, none Hydration Status: adequate Murtaza Dior MD Sep 08, 2016 09:11
--- NOTE | 2016-09-08 09:13 | 48 Hour Post Anesthesia Eval ---
Post Anesthesia Evaluation Procedure: Colonoscopy Date of Evaluation: Sep 08, 2016 Time of Evaluation: 11:46 Blood Pressure Systolic: 111 0: 62 Pulse Rate: 83 Respiratory Rate: 18 - Mech Vent Temperature (Fahrenheit): 98.6 O2 Sat by Pulse Oximetry: 100 Airway: patent Nausea: No Vomiting: No Pain Intensity: 3 Hydration Status: adequate Cardiopulmonary Status: Stable Mental Status/LOC: patient returned to baseline Follow-up Care/Observations: 0 Post-Anesthesia Complications: 0 Follow-up care needed: N/A Murtaza Dior MD Sep 08, 2016 09:12
[2016-09-08] MEDS: levETIRAcetam 500mg/5ml Liquid GT SCH ×2 (09:25→20:37)
[2016-09-08] MEDS ORDERED: KCl 10% 40mEq/30ml liquid PEG ONE (10:00)
[2016-09-08] MEDS: Furosemide 40mg tab ORAL SCH ×2 (10:07→20:37)
--- NOTE | 2016-09-08 10:58 | Infectious Diseases Prog Note ---
Assessment/Plan Assessment/Plan A: //KPC and ESBL Coli urinary catheter associated UTI, h/o ESBL E coli //hx of chronic ascites, july2016, neg for SBP //hx of recurrent HCAP/VAP SCx: Psa, Pr mirabilis, KPC //hx of polymicrobial bactermia (MRSA, M. morganii, Psa) with TTE negative for IE s/p treatment //hx of recurrent Stage IV sacral decubitus ulcer //HCV Ab+ //Negative HIV--09/04/16 //Elevated alkaline phosphatase with negative HIDA scan 07/15 //Afebrile w/o leukocytosis //Elevated ESR, CRP //H. pylori on last EGD pending outpatient treatment //UGIB d/t esophageal ulcer and severe portal hypertensive gastropathy 07/22/16 s/p banding 08/20/16 //Chronic liver disease/cirrhosis with elevated LFTs US: reactive GB wall thickening CT: liver cirrhosis with stigmata of portal hypertension //chronic VDRF s/p trach and peg //h/o CVA //[facility] resident //MDRO colonized //NKDA PLAN: cont tigecycline d# 2 / ( dose adjusted for Child-Man Class C ) 09/07 SP zosyn d#3 monitor blood cx monitor results of today's paracentesis for gram stain, culture and cell count. wound care to area around peg follow CBC and BMP Subjective Constitutional: Denies: anorexia, chills, drenching sweats, fatigue, fever, no symptoms, other Allergies: Coded Allergies: No Known Allergies (Unverified , 06/09/16) Objective Vital Signs Last 24 Hour Vital Signs Date Time Temp Pulse Resp B/P Pulse Ox O2 Delivery O2 Flow Rate FiO2 09/08/16 10:35 75 23 30 09/08/16 09:12 83 18 100 09/08/16 09:11 82 14 100 09/08/16 08:49 72 16 30 09/08/16 08:00 83 09/08/16 08:00 30 09/08/16 08:00 97.3 90 14 105/58 100 Mechanical Ventilator 30 09/08/16 07:13 71 30 30 09/08/16 05:30 110 14 30 09/08/16 04:00 97.5 98 14 109/62 99 Mechanical Ventilator 30 09/08/16 04:00 30 09/08/16 04:00 92 09/08/16 03:13 102 16 30 09/08/16 01:16 82 14 30 09/08/16 00:05 97.7 92 16 101/54 100 Mechanical Ventilator 09/08/16 00:00 93 09/08/16 00:00 30 09/07/16 23:23 95 20 30 09/07/16 21:10 91 18 30 09/07/16 20:00 98 09/07/16 20:00 30 09/07/16 20:00 98.0 99 16 101/58 99 Mechanical Ventilator 30 09/07/16 19:22 97 17 30 09/07/16 17:28 95 17 30 09/07/16 16:02 92 09/07/16 16:02 30 09/07/16 16:00 97.7 93 15 105/40 100 Mechanical Ventilator 30 09/07/16 15:17 97 15 30 09/07/16 12:46 90 14 30 09/07/16 12:00 97.5 79 19 97/58 100 Mechanical Ventilator 30 09/07/16 11:48 30 09/07/16 11:48 89 Height (Feet): 5 Height (Inches): 8.00 Weight (Pounds): 160 HEENT: atraumatic Respiratory/Chest: no respiratory distress Cardiovascular: regularly irregular Abdomen: non distended Microbiology Date/Time Source Procedure Growth Status 09/05/16 14:35 Blood Blood Culture - Preliminary NO GROWTH AFTER 48 HOURS Resulted 09/05/16 14:25 Blood Blood Culture - Preliminary NO GROWTH AFTER 48 HOURS Resulted Laboratory Tests Test 09/08/16 04:10 White Blood Count 5.1 K/UL (4.8-10.8) Red Blood Count 2.55 M/UL (4.70-6.10) L Hemoglobin 8.2 G/DL (14.2-18.0) L Hematocrit 25.7 % (42.0-52.0) L Mean Corpuscular Volume 101 FL (80-99) H Mean Corpuscular Hemoglobin 32.2 PG (27.0-31.0) H Mean Corpuscular Hemoglobin Concent 32.0 G/DL (32.0-36.0) Red Cell Distribution Width 22.4 % (11.6-14.8) H Platelet Count 109 K/UL (150-450) L Mean Platelet Volume 6.1 FL (6.5-10.1) L Neutrophils (%) (Auto) 82.7 % (45.0-75.0) H Lymphocytes (%) (Auto) 7.8 % (20.0-45.0) L Monocytes (%) (Auto) 6.0 % (1.0-10.0) Eosinophils (%) (Auto) 2.7 % (0.0-3.0) Basophils (%) (Auto) 0.8 % (0.0-2.0) Prothrombin Time 13.6 SEC (9.30-11.50) H Prothromb Time International Ratio 1.3 (0.9-1.1) H Activated Partial Thromboplast Time 35 SEC (23-33) H Sodium Level 143 mEQ/L (135-145) Potassium Level 3.2 mEQ/L (3.4-4.9) L Chloride Level 105 mEQ/L (98-107) Carbon Dioxide Level 25 mEQ/L (20-30) Anion Gap 13 (5-15) Blood Urea Nitrogen 11 mg/dL (7-23) Creatinine 0.3 mg/dL (0.7-1.2) L Estimat Glomerular Filtration Rate > 60 mL/min (>60) Glucose Level 104 mg/dL (74-106) Calcium Level 7.9 mg/dL (8.6-10.2) L Current Medications Medications (Trade) Dose Ordered Sig/Hair Route PRN Reason Start Time Stop Time Status Last Admin Dose Admin Acetaminophen (Tylenol) 650 mg Q4H PRN ORAL fever 09/04/16 19:00 10/04/16 18:59 Al Hydroxide/Mg Hydroxide (Mylanta II) 30 ml Q6H PRN ORAL dyspepsia 09/04/16 19:00 10/04/16 18:59 Dextrose (Dextrose 50%) STAT PRN IV Hypoglycemia 09/04/16 19:00 10/04/16 18:59 Furosemide (Lasix) 40 mg EVERY 12 HOURS ORAL 09/04/16 21:00 10/04/16 20:59 09/08/16 10:07 Lactulose (Cephulac) 30 gm EVERY 6 HOURS ORAL 09/05/16 21:00 10/05/16 20:59 09/08/16 06:15 Levetiracetam (Keppra) 1,500 mg Q12HR GT 09/04/16 21:00 10/04/16 20:59 09/08/16 09:25 Lorazepam (Ativan 2mg/ml 1ml) 0.5 mg Q4H PRN IV For Anxiety 09/04/16 19:00 09/11/16 18:59 09/08/16 02:26 Morphine Sulfate (Morphine Sulfate) 2 mg Q4H PRN IVP For Pain 4-10 09/04/16 19:00 09/11/16 18:59 09/07/16 21:09 Ondansetron HCl (Zofran) 4 mg Q6H PRN IVP Nausea & Vomiting 09/04/16 19:00 10/04/16 18:59 Pantoprazole 40 mg 40 mg DAILY ORAL 09/06/16 09:00 10/06/16 08:59 09/08/16 09:25 Polyethylene Glycol (Miralax) 17 gm HSPRN PRN ORAL Constipation 09/04/16 19:00 10/04/16 18:59 Tigecycline/ Dextrose (Tygacil/D5W) 110 ml @ 220 mls/hr Q12HR@0600,1800 IVPB 09/08/16 06:00 09/15/16 05:59 09/08/16 06:15 Zolpidem Tartrate (Ambien) 5 mg HSPRN PRN ORAL Insomnia 09/04/16 19:00 10/04/16 18:59 09/08/16 03:27 SHARRI RAMÍREZ M.D. Sep 08, 2016 10:58
[2016-09-08 12:00] VITALS: BP 102/52
--- NOTE | 2016-09-08 14:46 | Procedure Note ---
DATE OF PROCEDURE: 09/08/2016 SURGEON: Anthony Arndt M.D. PROCEDURE: Colonoscopy. ANESTHESIOLOGIST: Thomas Dior M.D. INSTRUMENT: Olympus adult flexible colonoscope. INDICATION: GI bleeding. REASON FOR PROCEDURE: The procedure, risks, benefits, and possible consequences, including hemorrhage, aspiration, perforation and infection, and alternative treatments, were explained to the patient/legal guardian by Dr. Anthony Arndt and the patient/legal guardian understood and accepted these risks. PROCEDURE: After informed consent was obtained and the patient was adequately sedated, first rectal exam was performed, which was positive for internal hemorrhoids. Then, the scope was advanced from rectum into the area seems to be proximal ascending colon. Quality of prep was good. This procedure was challenging, it was done at the bedside. The patient was on an airbed, so it was very difficult to get the good position to get to the cecum and even pass into the sigmoid was very challenging. When we were able to get to the proximal ascending colon, mucosae ileocecal valve, we could not put the scope into the cecum itself. There is no active bleeding at this time. There is no diverticulosis. There is no melena. There is no blood or blood products in this colonoscopy examination. Retroflexion of rectum showed some internal hemorrhoids. The patient tolerated the procedure without any complication. SUMMARY FINDINGS: There is no evidence of obvious lower GI bleeding at this time. RECOMMENDATIONS: If the patient rebleeds, we will repeat endoscopy and banding of the varices. I want to thank, Dr. Breen, for this kind referral. Anthony Arndt M.D. DR: JIAN JOB#: [id number] CC: Uma Breen M.D.; Fax#: [phone]
[2016-09-08 16:00] VITALS: BP 97/56
[2016-09-08] MEDS: D5W IVPB SCH (17:26)
[2016-09-08] MEDS: TIGECYCLINE IVPB SCH (17:26)
[2016-09-08] MEDS: Morphine Sulfate 2mg/ml Inj IVP PRN (18:36)
--- NOTE | 2016-09-08 19:50 | General Progress Note ---
Assessment/Plan Assessment/Plan ASSESSMENT/RECS: 1. Coagulopathy secondary to underlying liver disease and history of liver malignancy as well. Secondary to hepatitis C 2. Anemia 2/2 GI bleed --> colo shows no julisa gi bkeed 09/08 3. Microcytosis --> has improved 4. Coagulopathy secondary to underlying liver disease and history of liver malignancy as well. Secondary to hepatitis C 5. Anemia secondary to chronic disease. 6. Esophageal varices s/p banding. 7. Hepatic encephalopathy. 8. Cirrhosis. hepatitis C 9. Status post paracentesis. 10. snf resident. 11. Venous ulceration. 12. Helicobacter pylori infection. Subjective Constitutional: Reports: no symptoms HEENT: Reports: no symptoms Cardiovascular: Reports: no symptoms Respiratory: Reports: no symptoms Gastrointestinal/Abdominal: Reports: no symptoms Neurologic/Psychiatric: Reports: weakness Endocrine: Reports: no symptoms Hematologic/Lymphatic: Reports: anemia Allergies: Coded Allergies: No Known Allergies (Unverified , 06/09/16) Subjective is s/p colo today, no e/o gi bleed Objective Last 24 Hour Vital Signs Date Time Temp Pulse Resp B/P Pulse Ox O2 Delivery O2 Flow Rate FiO2 09/08/16 19:05 97.3 09/08/16 16:42 83 16 30 09/08/16 16:00 87 09/08/16 16:00 30 09/08/16 16:00 97.3 90 14 97/56 100 Mechanical Ventilator 09/08/16 14:50 80 16 30 09/08/16 12:58 79 20 30 09/08/16 12:00 97.7 93 14 102/52 96 Mechanical Ventilator 09/08/16 12:00 96 09/08/16 12:00 30 09/08/16 10:35 75 23 30 09/08/16 09:12 83 18 100 09/08/16 09:11 82 14 100 09/08/16 08:49 72 16 30 09/08/16 08:00 83 09/08/16 08:00 30 09/08/16 08:00 97.3 90 14 105/58 100 Mechanical Ventilator 30 09/08/16 07:13 71 30 30 09/08/16 05:30 110 14 30 09/08/16 04:00 97.5 98 14 109/62 99 Mechanical Ventilator 09/08/16 04:00 30 09/08/16 04:00 92 09/08/16 03:13 102 16 30 09/08/16 01:16 82 14 30 09/08/16 00:05 97.7 92 16 101/54 100 Mechanical Ventilator 30 09/08/16 00:00 93 09/08/16 00:00 30 09/07/16 23:23 95 20 30 09/07/16 21:10 91 18 30 09/07/16 20:00 98 09/07/16 20:00 30 09/07/16 20:00 98.0 99 16 101/58 99 Mechanical Ventilator 30 Intake and Output 09/07/16 09/08/16 19:00 07:00 Intake Total 2320 ml Output Total 350 ml 300 ml Balance 1970 ml -300 ml Intake Free Water 50 ml Tube Feeding 270 ml Other 2000 ml Output Urine Total 350 ml 300 ml Laboratory Tests 09/08/16 04:10: White Blood Count 5.1, Red Blood Count 2.55L, Hemoglobin 8.2L, Hematocrit 25.7L , Mean Corpuscular Volume 101H, Mean Corpuscular Hemoglobin 32.2H, Mean Corpuscular Hemoglobin Concent 32.0, Red Cell Distribution Width 22.4H, Platelet Count 109L, Mean Platelet Volume 6.1L, Neutrophils (%) (Auto) 82.7H, Lymphocytes (%) (Auto) 7.8L, Monocytes (%) (Auto) 6.0, Eosinophils (%) (Auto) 2.7, Basophils (%) (Auto) 0.8, Prothrombin Time 13.6H, Prothromb Time International Ratio 1.3H, Activated Partial Thromboplast Time 35H, Sodium Level 143, Potassium Level 3.2L, Chloride Level 105, Carbon Dioxide Level 25, Anion Gap 13, Blood Urea Nitrogen 11, Creatinine 0.3L, Estimat Glomerular Filtration Rate > 60, Glucose Level 104, Calcium Level 7.9L Height (Feet): 5 Height (Inches): 8.00 Weight (Pounds): 160 General Appearance: no apparent distress EENT: TMs normal Neck: non-tender Cardiovascular: regular rhythm Respiratory/Chest: no respiratory distress Abdomen: non tender Genitourinary/Rectal: normal rectal exam Extremities: normal range of motion Edema: no edema noted Leg (L), no edema noted Leg (R) Neurologic: abnormal gait Skin: warm/dry Kleynberg,Art L. Sep 08, 2016 19:50
[2016-09-08 20:00] VITALS: BP 109/62
[2016-09-09] VITALS: BP 105/58
[2016-09-09 04:00] VITALS: BP 97/57
[2016-09-09 05:12] LABS: BASOPHILS % (AUTO) 0.5 % (0.0-2.0); EOSINOPHILS % (AUTO) 3.3 % (0.0-3.0); LYMPHOCYTES % (AUTO) 8.2 % (20.0-45.0); MEAN CORPUSCULAR HEMOGLOBIN 32.1 PG (27.0-31.0); MEAN CORPUSCULAR HGB CONC 30.8 G/DL (32.0-36.0); MEAN CORPUSCULAR VOLUME 104 FL (80-99); MEAN PLATELET VOLUME 5.3 FL (6.5-10.1); MONOCYTES % (AUTO) 7.8 % (1.0-10.0); NEUTROPHILS % (AUTO) 80.2 % (45.0-75.0); PLATELET COUNT 114 K/UL (150-450); RED BLOOD COUNT 2.81 M/UL (4.70-6.10); RED CELL DISTRIBUTION WIDTH 23.7 % (11.6-14.8); WHITE BLOOD COUNT 6.9 K/UL (4.8-10.8)
[2016-09-09 05:18] LABS: INR 1.3 (0.9-1.1); PROTHROMBIN TIME 13.9 SEC (9.30-11.50)
[2016-09-09 05:29] LABS: ALANINE AMINOTRANSFERASE 17 U/L (3-41); ALBUMIN/GLOBULIN RATIO 0.4 (1.0-2.7); ANION GAP 15 (5-15); ASPARTATE AMINO TRANSFERASE 36 U/L (5-40); CALCIUM 8.3 mg/dL (8.6-10.2); CARBON DIOXIDE 24 mEQ/L (20-30); CHLORIDE 110 mEQ/L (98-107); CREATININE 0.5 mg/dL (0.7-1.2); GLOMERULAR FILTRATION RATE > 60 mL/min (>60); HEMOLYSIS 4; MAGNESIUM 1.9 mg/dL (1.7-2.5); PHOSPHORUS 2.1 mg/dL (2.5-4.8); POTASSIUM 3.5 mEQ/L (3.4-4.9); SODIUM 149 mEQ/L (135-145); TOTAL PROTEIN 6.1 g/dL (6.6-8.7)
[2016-09-09] MEDS: D5W IVPB SCH ×2 (05:40→18:51)
[2016-09-09] MEDS: TIGECYCLINE IVPB SCH ×2 (05:40→18:51)
[2016-09-09] MEDS: Lactulose 20gm/30ml UDC ORAL SCH ×3 (05:41→18:51)
[2016-09-09 08:00] VITALS: BP 112/67
[2016-09-09] MEDS: levETIRAcetam 500mg/5ml Liquid GT SCH (08:32)
[2016-09-09] MEDS: Furosemide 40mg tab ORAL SCH (08:33)
[2016-09-09] MEDS: Morphine Sulfate 2mg/ml Inj IVP PRN (10:10)
[2016-09-09] MEDS ORDERED: TYGACIL50 MG IVPB (11:13)
--- NOTE | 2016-09-09 11:14 | Pulmonology Progress Note ---
Assessment/Plan Problems: (1) GI bleed (2) Coagulopathy (3) Chronic respiratory failure (4) Liver cirrhosis (5) Ascites Assessment/Plan GI evaluation appreciated prn prbc iv fluids check electrolytes futile care. family ignorant of the facts. [facility] tygac[facility] 10 days Subjective ROS Limited/Unobtainable: No Constitutional: Reports: no symptoms HEENT: Repors: no symptoms Respiratory: Reports: no symptoms Allergies: Coded Allergies: No Known Allergies (Unverified , 06/09/16) Objective Last 24 Hour Vital Signs Date Time Temp Pulse Resp B/P Pulse Ox O2 Delivery O2 Flow Rate FiO2 09/09/16 09:25 100 15 30 09/09/16 08:00 85 09/09/16 08:00 97.2 97 16 112/67 100 Mechanical Ventilator 30 09/09/16 07:25 102 16 30 09/09/16 05:17 90 15 30 09/09/16 04:00 109 09/09/16 04:00 30 09/09/16 04:00 97.5 97 18 97/57 100 Mechanical Ventilator 30 09/09/16 03:30 86 17 30 09/09/16 01:30 80 14 30 09/09/16 00:00 90 09/09/16 00:00 30 09/09/16 00:00 97.7 94 18 105/58 100 Mechanical Ventilator 30 09/08/16 23:11 84 14 30 09/08/16 21:30 88 15 30 09/08/16 20:00 97.5 91 16 109/62 100 Mechanical Ventilator 30 09/08/16 20:00 30 09/08/16 20:00 91 09/08/16 19:30 86 14 30 09/08/16 19:05 97.3 09/08/16 16:42 83 16 30 09/08/16 16:00 87 09/08/16 16:00 30 09/08/16 16:00 97.3 90 14 97/56 100 Mechanical Ventilator 30 09/08/16 14:50 80 16 30 09/08/16 12:58 79 20 30 09/08/16 12:00 97.7 93 14 102/52 96 Mechanical Ventilator 30 09/08/16 12:00 96 09/08/16 12:00 30 Intake and Output 09/08/16 09/09/16 19:00 07:00 Intake Total 375 ml 770 ml Output Total 870 ml Balance 375 ml -100 ml IV Total 110 ml 110 ml Tube Feeding 220 ml 480 ml Other 45 ml 180 ml Output Urine Total 470 ml Stool Total 400 ml # Voids 1 1 # Bowel Movements 4 1 General Appearance: cachetic HEENT: normocephalic, atraumatic Respiratory/Chest: chest wall non-tender, lungs clear Cardiovascular: normal peripheral pulses, normal rate Abdomen: normal bowel sounds, soft, non tender Genitourinary: normal external genitalia Extremities: no clubbing Neurologic/Psychiatric: 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 II-XII grossly normal, no motor/sensory deficits Lymphatic: no neck adenopathy Laboratory Tests 09/09/16 03:25: White Blood Count 6.9, Red Blood Count 2.81L, Hemoglobin 9.0L, Hematocrit 29.4L , Mean Corpuscular Volume 104H, Mean Corpuscular Hemoglobin 32.1H, Mean Corpuscular Hemoglobin Concent 30.8L, Red Cell Distribution Width 23.7H, Platelet Count 114L, Mean Platelet Volume 5.3L, Neutrophils (%) (Auto) 80.2H, Lymphocytes (%) (Auto) 8.2L, Monocytes (%) (Auto) 7.8, Eosinophils (%) (Auto) 3.3H, Basophils (%) (Auto) 0.5, Prothrombin Time 13.9H, Prothromb Time International Ratio 1.3H, Activated Partial Thromboplast Time 37H, Sodium Level 149H, Potassium Level 3.5, Chloride Level 110H, Carbon Dioxide Level 24, Anion Gap 15, Blood Urea Nitrogen 14, Creatinine 0.5#L, Estimat Glomerular Filtration Rate > 60, Glucose Level 115H, Calcium Level 8.3L, Phosphorus Level 2.1L, Magnesium Level 1.9, Total Bilirubin 0.8, Aspartate Amino Transf (AST/SGOT) 36, Alanine Aminotransferase (ALT/SGPT) 17, Alkaline Phosphatase 241H, Total Protein 6.1L, Albumin 1.9L, Globulin 4.2, Albumin/Globulin Ratio 0.4L Current Medications Medications (Trade) Dose Ordered Sig/Hair Route PRN Reason Start Time Stop Time Status Last Admin Dose Admin Acetaminophen (Tylenol) 650 mg Q4H PRN ORAL fever 09/04/16 19:00 10/04/16 18:59 Al Hydroxide/Mg Hydroxide (Mylanta II) 30 ml Q6H PRN ORAL dyspepsia 09/04/16 19:00 10/04/16 18:59 Dextrose (Dextrose 50%) STAT PRN IV Hypoglycemia 09/04/16 19:00 10/04/16 18:59 Furosemide (Lasix) 40 mg EVERY 12 HOURS ORAL 09/04/16 21:00 10/04/16 20:59 09/09/16 08:33 Lactulose 30 gm 30 gm EVERY 6 HOURS ORAL 09/05/16 21:00 10/05/16 20:59 09/09/16 08:33 Levetiracetam (Keppra) 1,500 mg Q12HR GT 09/04/16 21:00 10/04/16 20:59 09/09/16 08:32 Lorazepam (Ativan 2mg/ml 1ml) 0.5 mg Q4H PRN IV For Anxiety 09/04/16 19:00 09/11/16 18:59 09/08/16 02:26 Morphine Sulfate (Morphine Sulfate) 2 mg Q4H PRN IVP For Pain 4-10 09/04/16 19:00 09/11/16 18:59 09/09/16 10:10 Ondansetron HCl (Zofran) 4 mg Q6H PRN IVP Nausea & Vomiting 09/04/16 19:00 10/04/16 18:59 Pantoprazole (Protonix) 40 mg ACBREAKFAST ORAL 09/10/16 06:30 10/06/16 08:59 Polyethylene Glycol (Miralax) 17 gm HSPRN PRN ORAL Constipation 09/04/16 19:00 10/04/16 18:59 Tigecycline/ Dextrose (Tygacil/D5W) 110 ml @ 220 mls/hr Q12HR@0600,1800 IVPB 09/08/16 18:00 09/15/16 17:59 09/09/16 05:40 Zolpidem Tartrate (Ambien) 5 mg HSPRN PRN ORAL Insomnia 09/04/16 19:00 10/04/16 18:59 09/08/16 03:27 DANTE HSIEH Sep 09, 2016 11:14
[2016-09-09 12:00] VITALS: BP 128/81
--- NOTE | 2016-09-09 12:24 | GI Progress Note ---
Assessment/Plan Problems: (1) GI bleed ICD Codes: K92.2 - Gastrointestinal hemorrhage, unspecified SNOMED: 32096624 Qualifiers: Qualified Codes: K92.0 - Hematemesis (2) Liver cirrhosis ICD Codes: K74.60 - Unspecified cirrhosis of liver SNOMED: 84437862 (3) hep c (4) Feeding by G-tube ICD Codes: Z93.1 - Gastrostomy status SNOMED: 672782436, 787141436 (5) Esophageal varices determined by endoscopy ICD Codes: I85.00 - Esophageal varices without bleeding SNOMED: 42150312, 772831274 (6) Bleeding ICD Codes: R58 - Hemorrhage, not elsewhere classified SNOMED: 719465649 (7) Anemia due to blood loss, acute ICD Codes: D62 - Acute posthemorrhagic anemia SNOMED: 577006848 (8) large ascites Status: unchanged Status Narrative Discussed with Dr. Arndt. Assessment/Plan OB stool positive s/p EGD with banding 08/21/16 s/p colonoscopy 09/09/15 >> no GI bleed will repeat EGD with banding if patient continues to bleed monitor H&H, transfuse prn fu paracentesis ppi fu labs Subjective Subjective limited Objective Last 24 Hour Vital Signs Date Time Temp Pulse Resp B/P Pulse Ox O2 Delivery O2 Flow Rate FiO2 09/09/16 11:25 94 14 30 09/09/16 09:25 100 15 30 09/09/16 08:00 30 09/09/16 08:00 85 09/09/16 08:00 97.2 97 16 112/67 100 Mechanical Ventilator 30 09/09/16 07:25 102 16 30 09/09/16 05:17 90 15 30 09/09/16 04:00 109 09/09/16 04:00 30 09/09/16 04:00 97.5 97 18 97/57 100 Mechanical Ventilator 30 09/09/16 03:30 86 17 30 09/09/16 01:30 80 14 30 09/09/16 00:00 90 09/09/16 00:00 30 09/09/16 00:00 97.7 94 18 105/58 100 Mechanical Ventilator 30 09/08/16 23:11 84 14 30 09/08/16 21:30 88 15 30 09/08/16 20:00 97.5 91 16 109/62 100 Mechanical Ventilator 30 09/08/16 20:00 30 09/08/16 20:00 91 09/08/16 19:30 86 14 30 09/08/16 19:05 97.3 09/08/16 16:42 83 16 30 09/08/16 16:00 87 09/08/16 16:00 30 09/08/16 16:00 97.3 90 14 97/56 100 Mechanical Ventilator 30 09/08/16 14:50 80 16 30 09/08/16 12:58 79 20 30 Intake and Output 09/08/16 09/09/16 19:00 07:00 Intake Total 375 ml 770 ml Output Total 870 ml Balance 375 ml -100 ml IV Total 110 ml 110 ml Tube Feeding 220 ml 480 ml Other 45 ml 180 ml Output Urine Total 470 ml Stool Total 400 ml # Voids 1 1 # Bowel Movements 4 1 Laboratory Tests Test 09/09/16 03:25 White Blood Count 6.9 K/UL (4.8-10.8) Red Blood Count 2.81 M/UL (4.70-6.10) L Hemoglobin 9.0 G/DL (14.2-18.0) L Hematocrit 29.4 % (42.0-52.0) L Mean Corpuscular Volume 104 FL (80-99) H Mean Corpuscular Hemoglobin 32.1 PG (27.0-31.0) H Mean Corpuscular Hemoglobin Concent 30.8 G/DL (32.0-36.0) L Red Cell Distribution Width 23.7 % (11.6-14.8) H Platelet Count 114 K/UL (150-450) L Mean Platelet Volume 5.3 FL (6.5-10.1) L Neutrophils (%) (Auto) 80.2 % (45.0-75.0) H Lymphocytes (%) (Auto) 8.2 % (20.0-45.0) L Monocytes (%) (Auto) 7.8 % (1.0-10.0) Eosinophils (%) (Auto) 3.3 % (0.0-3.0) H Basophils (%) (Auto) 0.5 % (0.0-2.0) Prothrombin Time 13.9 SEC (9.30-11.50) H Prothromb Time International Ratio 1.3 (0.9-1.1) H Activated Partial Thromboplast Time 37 SEC (23-33) H Sodium Level 149 mEQ/L (135-145) H Potassium Level 3.5 mEQ/L (3.4-4.9) Chloride Level 110 mEQ/L (98-107) H Carbon Dioxide Level 24 mEQ/L (20-30) Anion Gap 15 (5-15) Blood Urea Nitrogen 14 mg/dL (7-23) Creatinine 0.5 mg/dL (0.7-1.2) #L Estimat Glomerular Filtration Rate > 60 mL/min (>60) Glucose Level 115 mg/dL (74-106) H Calcium Level 8.3 mg/dL (8.6-10.2) L Phosphorus Level 2.1 mg/dL (2.5-4.8) L Magnesium Level 1.9 mg/dL (1.7-2.5) Total Bilirubin 0.8 mg/dL (0.0-1.2) Aspartate Amino Transf (AST/SGOT) 36 U/L (5-40) Alanine Aminotransferase (ALT/SGPT) 17 U/L (3-41) Alkaline Phosphatase 241 U/L (40-129) H Total Protein 6.1 g/dL (6.6-8.7) L Albumin 1.9 g/dL (3.5-5.2) L Globulin 4.2 g/dL Albumin/Globulin Ratio 0.4 (1.0-2.7) L Height (Feet): 5 Height (Inches): 8.00 Weight (Pounds): 160 General Appearance: no apparent distress, alert Cardiovascular: normal rate Respiratory/Chest: no respiratory distress, other - mech vent Abdominal Exam: normal bowel sounds, non tender, soft Genitourinary/Rectal: normal rectal exam Extremities: non-tender Paulette Romero N.P. Sep 09, 2016 12:24
[2016-09-09] MEDS: LORazepam Inj 2mg/ml 1ml IV PRN (13:37)
[2016-09-09] MEDS ORDERED: Potassium Phosphate 30 MM in Sodium Chloride 550 ML IV ONE (14:00)
[2016-09-09 16:00] VITALS: BP 111/60
--- NOTE | 2016-09-09 16:30 | Cardiology Report ---
APPROVED REPORT EKG Measurement Heart [id number] Normal sinus rhythm Right bundle branch block Abnormal ECG
--- NOTE | 2016-09-09 16:32 | General Progress Note ---
Assessment/Plan Assessment/Plan ASSESSMENT/RECS: #. Coagulopathy secondary to underlying liver disease and history of liver malignancy as well. Secondary to hepatitis C #. Anemia 2/2 GI bleed --> colo shows no julisa gi bkeed 09/08 #. Microcytosis --> has improved #. Anemia secondary to chronic disease. #. Esophageal varices s/p banding. #. Hepatic encephalopathy. #. Cirrhosis. hepatitis C #. Status post paracentesis. #. long-term resident. #. Venous ulceration. #. Helicobacter pylori infection. Subjective Constitutional: Reports: no symptoms HEENT: Reports: no symptoms Cardiovascular: Reports: no symptoms Respiratory: Reports: no symptoms Gastrointestinal/Abdominal: Reports: no symptoms Neurologic/Psychiatric: Reports: no symptoms Endocrine: Reports: no symptoms Hematologic/Lymphatic: Reports: anemia Allergies: Coded Allergies: No Known Allergies (Unverified , 06/09/16) Subjective is s/p colo, no e/o gi bleed, to be discharged con[facility] to senior care Objective Last 24 Hour Vital Signs Date Time Temp Pulse Resp B/P Pulse Ox O2 Delivery O2 Flow Rate FiO2 09/09/16 16:00 97.0 110 21 111/60 99 Mechanical Ventilator 30 09/09/16 15:22 114 17 30 09/09/16 13:29 99 20 30 09/09/16 12:00 30 09/09/16 12:00 97.7 116 16 128/81 99 Mechanical Ventilator 30 09/09/16 12:00 110 09/09/16 11:25 94 14 30 09/09/16 09:25 100 15 30 09/09/16 08:00 30 09/09/16 08:00 85 09/09/16 08:00 97.2 97 16 112/67 100 Mechanical Ventilator 30 09/09/16 07:25 102 16 30 09/09/16 05:17 90 15 30 09/09/16 04:00 109 09/09/16 04:00 30 09/09/16 04:00 97.5 97 18 97/57 100 Mechanical Ventilator 30 09/09/16 03:30 86 17 30 09/09/16 01:30 80 14 30 09/09/16 00:00 90 09/09/16 00:00 30 09/09/16 00:00 97.7 94 18 105/58 100 Mechanical Ventilator 30 09/08/16 23:11 84 14 30 09/08/16 21:30 88 15 30 09/08/16 20:00 97.5 91 16 109/62 100 Mechanical Ventilator 30 09/08/16 20:00 30 09/08/16 20:00 91 09/08/16 19:30 86 14 30 09/08/16 19:05 97.3 09/08/16 16:42 83 16 30 Intake and Output 09/08/16 09/09/16 19:00 07:00 Intake Total 375 ml 770 ml Output Total 870 ml Balance 375 ml -100 ml IV Total 110 ml 110 ml Tube Feeding 220 ml 480 ml Other 45 ml 180 ml Output Urine Total 470 ml Stool Total 400 ml # Voids 1 1 # Bowel Movements 4 1 Laboratory Tests 09/09/16 03:25: White Blood Count 6.9, Red Blood Count 2.81L, Hemoglobin 9.0L, Hematocrit 29.4L , Mean Corpuscular Volume 104H, Mean Corpuscular Hemoglobin 32.1H, Mean Corpuscular Hemoglobin Concent 30.8L, Red Cell Distribution Width 23.7H, Platelet Count 114L, Mean Platelet Volume 5.3L, Neutrophils (%) (Auto) 80.2H, Lymphocytes (%) (Auto) 8.2L, Monocytes (%) (Auto) 7.8, Eosinophils (%) (Auto) 3.3H, Basophils (%) (Auto) 0.5, Prothrombin Time 13.9H, Prothromb Time International Ratio 1.3H, Activated Partial Thromboplast Time 37H, Sodium Level 149H, Potassium Level 3.5, Chloride Level 110H, Carbon Dioxide Level 24, Anion Gap 15, Blood Urea Nitrogen 14, Creatinine 0.5#L, Estimat Glomerular Filtration Rate > 60, Glucose Level 115H, Calcium Level 8.3L, Phosphorus Level 2.1L, Magnesium Level 1.9, Total Bilirubin 0.8, Aspartate Amino Transf (AST/SGOT) 36, Alanine Aminotransferase (ALT/SGPT) 17, Alkaline Phosphatase 241H, Total Protein 6.1L, Albumin 1.9L, Globulin 4.2, Albumin/Globulin Ratio 0.4L Height (Feet): 5 Height (Inches): 8.00 Weight (Pounds): 160 General Appearance: no apparent distress EENT: TMs normal Neck: supple Cardiovascular: regular rhythm Respiratory/Chest: lungs clear Abdomen: non tender Extremities: non-tender Edema: 1+ Leg (L), 1+ Leg (R) Edema: mild edema Neurologic: alert Skin: warm/dry Art Mackenzie Sep 09, 2016 16:32
[2016-09-09] MEDS ORDERED: NS 275ml ONE (17:07)
[2016-09-09 19:55] VITALS: BP 138/78
[2016-09-09] MEDS ORDERED: Tubing IV Secondary IV ONE (20:24)
--- NOTE | 2016-09-09 22:15 | Infectious Diseases Prog Note ---
Assessment/Plan Assessment/Plan A: //KPC and ESBL Coli urinary catheter associated UTI, h/o ESBL E coli //hx of chronic ascites, july2016, neg for SBP //hx of recurrent HCAP/VAP SCx: Psa, Pr mirabilis, KPC //hx of polymicrobial bactermia (MRSA, M. morganii, Psa) with TTE negative for IE s/p treatment //hx of recurrent Stage IV sacral decubitus ulcer //HCV Ab+ //Negative HIV--09/04/16 //Elevated alkaline phosphatase with negative HIDA scan 07/15 //Afebrile w/o leukocytosis //Elevated ESR, CRP //H. pylori on last EGD pending outpatient treatment //UGIB d/t esophageal ulcer and severe portal hypertensive gastropathy 07/22/16 s/p banding 08/20/16 //Chronic liver disease/cirrhosis with elevated LFTs US: reactive GB wall thickening CT: liver cirrhosis with stigmata of portal hypertension //chronic VDRF s/p trach and peg //h/o CVA //[facility] resident //MDRO colonized //NKDA PLAN: cont tigecycline d# 3 / ( dose adjusted for Child-Man Class C ) 09/07 SP zosyn d#3 monitor blood cx monitor results of today's paracentesis for gram stain, culture and cell count. wound care to area around peg follow CBC and BMP Subjective Constitutional: Denies: anorexia, chills, drenching sweats, fatigue, fever, no symptoms, other Allergies: Coded Allergies: No Known Allergies (Unverified , 06/09/16) Objective Vital Signs Last 24 Hour Vital Signs Date Time Temp Pulse Resp B/P Pulse Ox O2 Delivery O2 Flow Rate FiO2 09/09/16 19:55 97.7 108 21 138/78 100 Mechanical Ventilator 30 09/09/16 19:23 97 14 30 09/09/16 17:03 107 16 30 09/09/16 16:00 111 09/09/16 16:00 97.0 110 21 111/60 99 Mechanical Ventilator 30 09/09/16 16:00 30 09/09/16 15:22 114 17 30 09/09/16 13:29 99 20 30 09/09/16 12:00 30 09/09/16 12:00 97.7 116 16 128/81 99 Mechanical Ventilator 30 09/09/16 12:00 110 09/09/16 11:25 94 14 30 09/09/16 09:25 100 15 30 09/09/16 08:00 30 09/09/16 08:00 85 09/09/16 08:00 97.2 97 16 112/67 100 Mechanical Ventilator 30 09/09/16 07:25 102 16 30 09/09/16 05:17 90 15 30 09/09/16 04:00 109 09/09/16 04:00 30 09/09/16 04:00 97.5 97 18 97/57 100 Mechanical Ventilator 30 09/09/16 03:30 86 17 30 09/09/16 01:30 80 14 30 09/09/16 00:00 90 09/09/16 00:00 30 09/09/16 00:00 97.7 94 18 105/58 100 Mechanical Ventilator 30 09/08/16 23:11 84 14 30 Height (Feet): 5 Height (Inches): 8.00 Weight (Pounds): 160 HEENT: anicteric Respiratory/Chest: normal breath sounds Cardiovascular: normal rate Abdomen: no mass Laboratory Tests Test 09/09/16 03:25 White Blood Count 6.9 K/UL (4.8-10.8) Red Blood Count 2.81 M/UL (4.70-6.10) L Hemoglobin 9.0 G/DL (14.2-18.0) L Hematocrit 29.4 % (42.0-52.0) L Mean Corpuscular Volume 104 FL (80-99) H Mean Corpuscular Hemoglobin 32.1 PG (27.0-31.0) H Mean Corpuscular Hemoglobin Concent 30.8 G/DL (32.0-36.0) L Red Cell Distribution Width 23.7 % (11.6-14.8) H Platelet Count 114 K/UL (150-450) L Mean Platelet Volume 5.3 FL (6.5-10.1) L Neutrophils (%) (Auto) 80.2 % (45.0-75.0) H Lymphocytes (%) (Auto) 8.2 % (20.0-45.0) L Monocytes (%) (Auto) 7.8 % (1.0-10.0) Eosinophils (%) (Auto) 3.3 % (0.0-3.0) H Basophils (%) (Auto) 0.5 % (0.0-2.0) Prothrombin Time 13.9 SEC (9.30-11.50) H Prothromb Time International Ratio 1.3 (0.9-1.1) H Activated Partial Thromboplast Time 37 SEC (23-33) H Sodium Level 149 mEQ/L (135-145) H Potassium Level 3.5 mEQ/L (3.4-4.9) Chloride Level 110 mEQ/L (98-107) H Carbon Dioxide Level 24 mEQ/L (20-30) Anion Gap 15 (5-15) Blood Urea Nitrogen 14 mg/dL (7-23) Creatinine 0.5 mg/dL (0.7-1.2) #L Estimat Glomerular Filtration Rate > 60 mL/min (>60) Glucose Level 115 mg/dL (74-106) H Calcium Level 8.3 mg/dL (8.6-10.2) L Phosphorus Level 2.1 mg/dL (2.5-4.8) L Magnesium Level 1.9 mg/dL (1.7-2.5) Total Bilirubin 0.8 mg/dL (0.0-1.2) Aspartate Amino Transf (AST/SGOT) 36 U/L (5-40) Alanine Aminotransferase (ALT/SGPT) 17 U/L (3-41) Alkaline Phosphatase 241 U/L (40-129) H Total Protein 6.1 g/dL (6.6-8.7) L Albumin 1.9 g/dL (3.5-5.2) L Globulin 4.2 g/dL Albumin/Globulin Ratio 0.4 (1.0-2.7) L Current Medications Medications (Trade) Dose Ordered Sig/Hair Route PRN Reason Start Time Stop Time Status Last Admin Dose Admin Acetaminophen (Tylenol) 650 mg Q4H PRN ORAL fever 09/04/16 19:00 10/04/16 18:59 Al Hydroxide/Mg Hydroxide (Mylanta II) 30 ml Q6H PRN ORAL dyspepsia 09/04/16 19:00 10/04/16 18:59 Dextrose (Dextrose 50%) STAT PRN IV Hypoglycemia 09/04/16 19:00 10/04/16 18:59 Furosemide (Lasix) 40 mg EVERY 12 HOURS ORAL 09/04/16 21:00 10/04/16 20:59 09/09/16 08:33 Lactulose 30 gm 30 gm EVERY 6 HOURS ORAL 09/05/16 21:00 10/05/16 20:59 09/09/16 18:51 Levetiracetam (Keppra) 1,500 mg Q12HR GT 09/04/16 21:00 10/04/16 20:59 09/09/16 08:32 Lorazepam (Ativan 2mg/ml 1ml) 0.5 mg Q4H PRN IV For Anxiety 09/04/16 19:00 09/11/16 18:59 09/09/16 13:37 Morphine Sulfate (Morphine Sulfate) 2 mg Q4H PRN IVP For Pain 4-10 09/04/16 19:00 09/11/16 18:59 09/09/16 10:10 Ondansetron HCl (Zofran) 4 mg Q6H PRN IVP Nausea & Vomiting 09/04/16 19:00 10/04/16 18:59 Pantoprazole (Protonix) 40 mg ACBREAKFAST ORAL 09/10/16 06:30 10/06/16 08:59 Polyethylene Glycol (Miralax) 17 gm HSPRN PRN ORAL Constipation 09/04/16 19:00 10/04/16 18:59 Tigecycline/ Dextrose (Tygacil/D5W) 110 ml @ 220 mls/hr Q12HR@0600,1800 IVPB 09/08/16 18:00 09/15/16 17:59 09/09/16 18:51 Zolpidem Tartrate (Ambien) 5 mg HSPRN PRN ORAL Insomnia 09/04/16 19:00 10/04/16 18:59 09/08/16 03:27 SHARRI RAMÍREZ M.D. Sep 09, 2016 22:15
--- NOTE | 2016-09-11 09:28 | Discharge Summary ---
Discharge Summary Hospital Course Date of Admission Sep 04, 2016 at 16:36 Date of Discharge Sep 09, 2016 at 20:25 Admitting Diagnosis GI BLEED HPI Arnaldo Ramirez is a 56 year old male who was admitted on Sep 04, 2016 at 16:36 for Gastrointestinal Bleed Hospital Course [id number] Discharge Discharge Disposition Patient was discharged to SNF/Subacute Facility(03) Discharge Diagnoses: Kayli Hoff NP Sep 11, 2016 09:28
--- NOTE | 2016-09-12 05:00 | Discharge Summary 2 SIG ---
DATE OF ADMISSION: 09/04/2016 DATE OF DISCHARGE: 09/09/2016 CONSULTANTS: 1. Marc Urena M.D. 2. Art Mackenzie M.D. 3. Anthony Arndt M.D. BRIEF HOSPITAL COURSE: The patient is a 56-year-old male with history of end-stage liver disease with chronic ascites and vent dependent with PEG, was noted to have bleeding around gastrostomy tube, which is bright red and also had abdominal distention and pain. On evaluation at ED, the patient was hypotensive. Blood pressure dropped to 80. Fluid bolus was given. Blood work done showed hemoglobin of 7.2 and hematocrit of 21. INR was 1.4. EKG done showed normal sinus rhythm with right bundle-branch block. Chest x-ray showed no consolidation and no effusion and abdominal x-ray showed nonspecific bowel gas pattern. No SBO. CT scan showed massive ascites and pleural effusion. The patient was admitted to [facility] for GI bleed, coagulopathy, malignant ascites, liver cirrhosis, and chronic respiratory failure. He was placed on NPO and was given blood transfusion and IV hydration. He underwent ultrasound-guided paracentesis on 09/05/2016 yielding 12.6 liters of clear yellow fluid and underwent colonoscopy on 09/08/2016 with no evidence of obvious lower GI bleed. He had a prior EGD done on 08/21/2016 with findings of esophageal varices, status post banding. Urine culture was positive for KPC and ESBL E. coli. Initially was started on Zosyn and was later on switched to tigecycline. He came in with a stage IV mid sacral pressure ulcer. Local wound care was provided and wound culture showed growth of MDR Acinetobacter, Sonja, and coagulase-negative Staph. He had ultrasound-guided paracentesis done on 09/05/2016. Colonoscopy did not show julisa GI bleed. He was given proton-pump inhibitors. If the patient continued to bleed, will eventually need repeat EGD with banding. The patient was eventually discharged back to SNF to continue IV Tygacil for 10 more days. FINAL DIAGNOSES: 1. Acute gastrointestinal bleed. 2. Acute anemia, requiring blood transfusion. 3. Coagulopathy secondary to underlying liver disease and liver malignancy. 4. Anemia secondary to gastrointestinal bleed. 5. Anemia secondary to chronic disease. 6. Hepatic encephalopathy. 7. Liver cirrhosis. 8. Status post paracentesis. 9. Helicobacter pylori infection. 10. Malignant ascites, status post paracentesis. 11. Klebsiella pneumoniae carbapenemase and extended-spectrum beta-lactamases Escherichia coli. 12. Catheter-associated urinary tract infection. 13. Chronic ventilator-dependent respiratory failure, on tracheostomy and percutaneous endoscopic gastrostomy tube. 14. Stage IV sacral decubitus ulcer, present on admission. Uma Breen M.D. I have been assigned to dictate discharge summary on this account and I was not involved in the patient's management. Kayli Hoff N.P. DR: Rhett JOB#: [id number] CC:
== END 2016-09-09 20:25 | DRG 253 ==
LOC: EDBD 14:27 → EMR 15:05 → EDBEDREQ 16:22 → 2W 16:36 → EDBEDREQ 17:42 → 2W 09-08 20:30
PROC: 30233N1 Transfusion of Nonautologous Red Blood Cells into Peripheral Vein, Percutaneous Approach (ICD-10-PCS; 2016-09-04)
PROC: 5A1955Z Respiratory Ventilation, Greater than 96 Consecutive Hours (ICD-10-PCS; 2016-09-04)
PROC: 0W9G3ZZ Drainage of Peritoneal Cavity, Percutaneous Approach (ICD-10-PCS; 2016-09-05)
PROC: 0DJD8ZZ Inspection of Lower Intestinal Tract, Via Natural or Artificial Opening Endoscopic (ICD-10-PCS; principal; 2016-09-08 08:46)
DX: K92.2 Gastrointestinal hemorrhage, unspecified (principal); R18.0 Malignant ascites; Z99.11 Dependence on respirator [ventilator] status; D68.4 Acquired coagulation factor deficiency; L89.154 Pressure ulcer of sacral region, stage 4; J96.10 Chronic respiratory failure, unspecified whether with hypoxia or hypercapnia; Z43.0 Encounter for attention to tracheostomy; K76.6 Portal hypertension; K74.60 Unspecified cirrhosis of liver; T83.511A Infection and inflammatory reaction due to indwelling urethral catheter, initial encounter; K72.90 Hepatic failure, unspecified without coma; Z86.73 Personal history of transient ischemic attack (TIA), and cerebral infarction without residual deficits; K64.8 Other hemorrhoids; B19.20 Unspecified viral hepatitis C without hepatic coma; Z43.1 Encounter for attention to gastrostomy; D63.8 Anemia in other chronic diseases classified elsewhere; I86.8 Varicose veins of other specified sites; D62 Acute posthemorrhagic anemia; I85.10 Secondary esophageal varices without bleeding; B96.1 Klebsiella pneumoniae [K. pneumoniae] as the cause of diseases classified elsewhere; B96.20 Unspecified Escherichia coli [E. coli] as the cause of diseases classified elsewhere; Z16.12 Extended spectrum beta lactamase (ESBL) resistance; Z85.05 Personal history of malignant neoplasm of liver; B96.81 Helicobacter pylori [H. pylori] as the cause of diseases classified elsewhere
CPT/HCPCS: 36415; 71010; 74000; 74177; 76942; 80048; 80053; 80061; 81003; 82140; 82247; 82248; 82270; 82550; 82607; 82728; 82746; 83540; 83550; 83690; 83735; 84100; 84153; 84443; 84484; 84550; 85007; 85025; 85044; 85060; 85610; 85651; 85730; 86140; 86703; 86850; 86900; 86901; 86920; 87040; 87070; 87081; 87086; 87181; 87205; 93005; 93970; 94002; 94003; 94150; J2250; J2405; J3490

== ENCOUNTER 2016-09-18 15:38 | Inpatient (IN) | payer MEDICAID ==
[~2016-09-18] VITALS: Ht 170.2 cm; Wt 68.0 kg
--- NOTE | 2016-09-18 16:21 | Emergency Room Report ---
History of Present Illness General Chief Complaint: Abdominal Pain Source: Medical Record, EMS Present Illness HPI This patient is brought in from a residential facility for ascites. The patient has a history of end-stage liver disease and cirrhosis with liver cancer and metastatic ascites. He was recently admitted for a GI bleed. He is sent over for concern of recurrence of his ascites. There is no reported fever. There is a report of pain. There are no other complaints. Allergies: Coded Allergies: No Known Allergies (Unverified , 06/09/16) Patient History Past Medical History: see triage record, COPD, GI bleed, other - ESLD, cirrhosis, Liver CA w/ mets, Resp failure, HCV Past Surgical History: other - TRACH, PEG Social History: Denies: alcohol use, drug use, smoking Reviewed Nursing Documentation: PMH: Agreed, PSxH: Agreed Nursing Documentation-PMH Past Medical History: No History, Except For Hx Pacemaker: No Hx COPD: Yes Hx Gastrointestinal Problems: Yes Hx Dialysis: No Hx Neurological Problems: No Hx Cerebrovascular Accident: No Hx Seizures: No Hx Dysphasia: Yes Hx Weakness: Yes Review of Systems All Other Systems: negative except mentioned in HPI Physical Exam Vital Signs Date Time Temp Pulse Resp B/P Pulse Ox O2 Delivery O2 Flow Rate FiO2 09/18/16 15:39 97.2 68 20 70/35 99 Mechanical Ventilator 35 Sp02 EP Interpretation: reviewed, normal General Appearance: no apparent distress, alert, GCS 15, non-toxic Head: normocephalic, atraumatic Eyes: bilateral eye PERRL, bilateral eye normal inspection ENT: hearing grossly normal, normal pharynx, no angioedema, normal voice Neck: full range of motion, supple/symm/no masses Respiratory: chest non-tender, lungs clear, normal breath sounds, speaking full sentences Cardiovascular #1: regular rate, rhythm, no edema Gastrointestinal: normal bowel sounds, non tender, soft, no guarding, no rebound, distended, other - G-tube site with oozing small amount of blood. Rectal: deferred Musculoskeletal: other - At baseline Neurologic: alert, responsive, other - At baseline Psychiatric: judgement/insight normal, memory normal, mood/affect normal, no suicidal/homicidal ideation Skin: well hydrated, other - Sacral DU, see RN skin exam Medical Decision Making Diagnostic Impression: Primary Impression: Ascites Additional Impression: Pancreatitis ER Course This patient has a known history of cirrhosis and end-stage liver disease. He has a history of recurrent ascites. He presents with worsening ascites and also was found to have pancreatitis. He does have anemia, however, review of his previous labs she is is at his baseline. He also has acute kidney injury with an elevated creatinine at 1.3. Possibly this hepatorenal syndrome. Regardless, the patient is admitted and will need to undergo paracentesis by ultrasound guidance in radiology. He will also need further assessment of his pancreatitis. A CT of the abdomen pelvis was ordered but will be followed up by the inpatient physician. He recently has had a CT that showed metastatic ascites. The patient was given broad-spectrum antibiotics and admitted for further evaluation and treatment. Labs Test 09/18/16 18:30 White Blood Count 11.9 K/UL (4.8-10.8) Red Blood Count 2.37 M/UL (4.70-6.10) Hemoglobin 8.3 G/DL (14.2-18.0) Hematocrit 24.1 % (42.0-52.0) Mean Corpuscular Volume 102 FL (80-99) Mean Corpuscular Hemoglobin 35.0 PG (27.0-31.0) Mean Corpuscular Hemoglobin Concent 34.5 G/DL (32.0-36.0) Red Cell Distribution Width 20.7 % (11.6-14.8) Platelet Count 133 K/UL (150-450) Mean Platelet Volume 6.9 FL (6.5-10.1) Neutrophils (%) (Auto) 83.2 % (45.0-75.0) Lymphocytes (%) (Auto) 9.8 % (20.0-45.0) Monocytes (%) (Auto) 5.3 % (1.0-10.0) Eosinophils (%) (Auto) 1.4 % (0.0-3.0) Basophils (%) (Auto) 0.2 % (0.0-2.0) Prothrombin Time 13.3 SEC (9.30-11.50) Prothromb Time International Ratio 1.3 (0.9-1.1) Activated Partial Thromboplast Time 31 SEC (23-33) Sodium Level 135 mEQ/L (135-145) Potassium Level 4.7 mEQ/L (3.4-4.9) Chloride Level 96 mEQ/L (98-107) Carbon Dioxide Level 26 mEQ/L (20-30) Anion Gap 13 (5-15) Blood Urea Nitrogen 88 mg/dL (7-23) Creatinine 1.3 mg/dL (0.7-1.2) Estimat Glomerular Filtration Rate 56.7 mL/min (>60) Glucose Level 101 mg/dL (74-106) Calcium Level 8.1 mg/dL (8.6-10.2) Total Bilirubin 1.1 mg/dL (0.0-1.2) Aspartate Amino Transf (AST/SGOT) 27 U/L (5-40) Alanine Aminotransferase (ALT/SGPT) 13 U/L (3-41) Alkaline Phosphatase 215 U/L (40-129) Ammonia 30 umol/L (16-60) Total Protein 6.1 g/dL (6.6-8.7) Albumin 1.7 g/dL (3.5-5.2) Globulin 4.4 g/dL Albumin/Globulin Ratio 0.3 (1.0-2.7) Lipase > 300 U/L (< 60) CT/MRI/US Diagnostic Results CT/MRI/US Diagnostic Results : Imaging Test Ordered: CT abd/pelvis Impression Not done at the time of this dictation. PT will get the CT as an inpatient and the inpatient physician will f/u on these results. Last Vital Signs Date Time Temp Pulse Resp B/P Pulse Ox O2 Delivery O2 Flow Rate FiO2 09/18/16 15:39 97.2 68 20 70/35 99 Mechanical Ventilator 35 Disposition: ADMITTED INPATIENT Condition: Serious NADIR VARGAS D.O. Sep 18, 2016 16:21
[2016-09-18 16:56] VITALS: BP 95/55
[2016-09-18] MEDS ORDERED: ALBUTEROL2.5 MG/3 M INH (17:02)
[2016-09-18] MEDS ORDERED: ACETAMINOPHEN325 M1 ORAL (17:02)
[2016-09-18] MEDS ORDERED: FLEET ENEMA133 ML RECTAL (17:03)
[2016-09-18] MEDS ORDERED: Morphine Sulfate 4mg/ml Inj IVP ONE (18:45)
[2016-09-18 19:02] LABS: BASOPHILS % (AUTO) 0.2 % (0.0-2.0); EOSINOPHILS % (AUTO) 1.4 % (0.0-3.0); LYMPHOCYTES % (AUTO) 9.8 % (20.0-45.0); MEAN CORPUSCULAR HGB CONC 34.5 G/DL (32.0-36.0); MEAN CORPUSCULAR VOLUME 102 FL (80-99); MEAN PLATELET VOLUME 6.9 FL (6.5-10.1); MONOCYTES % (AUTO) 5.3 % (1.0-10.0); NEUTROPHILS % (AUTO) 83.2 % (45.0-75.0); PLATELET COUNT 133 K/UL (150-450); RED BLOOD COUNT 2.37 M/UL (4.70-6.10); RED CELL DISTRIBUTION WIDTH 20.7 % (11.6-14.8); WHITE BLOOD COUNT 11.9 K/UL (4.8-10.8)
[2016-09-18 19:18] LABS: AMMONIA 30 umol/L (16-60); INR 1.3 (0.9-1.1); PROTHROMBIN TIME 13.3 SEC (9.30-11.50)
[2016-09-18 19:19] LABS: ALANINE AMINOTRANSFERASE 13 U/L (3-41); ALBUMIN/GLOBULIN RATIO 0.3 (1.0-2.7); ANION GAP 13 (5-15); ASPARTATE AMINO TRANSFERASE 27 U/L (5-40); CALCIUM 8.1 mg/dL (8.6-10.2); CARBON DIOXIDE 26 mEQ/L (20-30); CHLORIDE 96 mEQ/L (98-107); CREATININE 1.3 mg/dL (0.7-1.2); GLOMERULAR FILTRATION RATE 56.7 mL/min (>60); HEMOLYSIS 13; POTASSIUM 4.7 mEQ/L (3.4-4.9); SODIUM 135 mEQ/L (135-145); TOTAL PROTEIN 6.1 g/dL (6.6-8.7)
[2016-09-18 19:30] LABS: LIPASE > 300 U/L (< 60)
[2016-09-18 19:42] LABS: BILIRUBIN,DIRECT 0.4 mg/dL (0.1-0.3)
[2016-09-18] MEDS ORDERED: Mylanta II UD 30ml ORAL PRN (19:45)
[2016-09-18] MEDS ORDERED: Nitroglycerin Subl 0.4mg tab (Bottle Of 25) SL PRN (19:45)
[2016-09-18] MEDS ORDERED: Miralax 17gm pkt ORAL PRN (19:45)
[2016-09-18 20:11] LABS: APPEARANCE,URINE SLIGHTLY CLOUDY; KETONES,URINE 1+ (NEGATIVE); LEUKOCYTE ESTERASE ,URINE 3+ (NEGATIVE); NITRITE,URINE NEGATIVE (NEGATIVE); PH,URINE 5 (4.5-8.0); PROTEIN,URINE 1+ (NEGATIVE); UROBILINOGEN,URINE NORMAL MG/DL (0.0-1.0)
[2016-09-18 20:26] LABS: WBC,URINE 20-30 /HPF (0 - 0)
[2016-09-18 20:27] LABS: BACTERIA,URINE MANY /HPF; YEAST,URINE FEW /HPF
[2016-09-18 20:54] VITALS: BP 119/46
[2016-09-18 21:00] VITALS: BP 122/64
[2016-09-18] MEDS ORDERED: Phytonadione 10 MG in D5W 55 ML IVPB ONE (21:00)
[2016-09-18] MEDS: D5 1/2NS 1,000 ML IV SCH (21:58)
[2016-09-18] MEDS: Lactulose 20gm/30ml UDC GT SCH (22:58)
[2016-09-18] MEDS: Furosemide 40mg tab ORAL SCH (22:58)
[2016-09-18] MEDS: levETIRAcetam 500mg/5ml Liquid GT SCH (22:58)
[2016-09-19] VITALS: BP 121/60
[2016-09-19] MEDS ORDERED: TYGACIL50 MG IVPB (00:19)
[2016-09-19 04:00] VITALS: BP 125/75
[2016-09-19 08:00] VITALS: BP 97/57
[2016-09-19] MEDS: Lactulose 20gm/30ml UDC GT SCH ×4 (08:25→21:07)
[2016-09-19] MEDS: Furosemide 40mg tab ORAL SCH ×2 (08:26→21:07)
[2016-09-19] MEDS: levETIRAcetam 500mg/5ml Liquid GT SCH ×2 (08:26→21:07)
--- NOTE | 2016-09-19 08:32 | General Progress Note ---
Assessment/Plan Problem List: (1) large ascites (2) Anemia due to blood loss, acute ICD Codes: D62 - Acute posthemorrhagic anemia SNOMED: 021497243 (3) Esophageal varices determined by endoscopy ICD Codes: I85.00 - Esophageal varices without bleeding SNOMED: 99662014, 984951242 (4) Feeding by G-tube ICD Codes: Z93.1 - Gastrostomy status SNOMED: 624368825, 208705010 (5) hep c (6) Liver cirrhosis ICD Codes: K74.60 - Unspecified cirrhosis of liver SNOMED: 27420592 (7) Helicobacter pylori (H. pylori) ICD Codes: A04.8 - Other specified bacterial intestinal infections Assessment/Plan pend paracentesis rule out SBP npo fu labs Subjective ROS Limited/Unobtainable: No Allergies: Coded Allergies: No Known Allergies (Unverified , 06/09/16) Objective Last 24 Hour Vital Signs Date Time Temp Pulse Resp B/P Pulse Ox O2 Delivery O2 Flow Rate FiO2 09/19/16 08:09 35 09/19/16 06:43 65 18 35 09/19/16 05:04 64 09/19/16 05:04 60 15 35 09/19/16 04:00 97.9 75 20 125/75 91 Mechanical Ventilator 35 09/19/16 04:00 35 09/19/16 03:27 62 14 35 09/19/16 01:16 65 14 35 09/19/16 00:00 35 09/19/16 00:00 98.4 61 18 121/60 90 Mechanical Ventilator 09/18/16 23:45 60 09/18/16 23:11 71 16 35 09/18/16 21:22 66 15 35 09/18/16 21:20 70 09/18/16 21:10 97.9 70 20 122/64 90 Mechanical Ventilator 35 09/18/16 21:00 97.9 70 20 122/64 90 Mechanical Ventilator 35 09/18/16 20:54 97.0 61 16 119/46 98 Mechanical Ventilator 35 09/18/16 19:25 70 14 35 09/18/16 17:30 68 27 35 09/18/16 17:03 35 09/18/16 16:56 97.0 68 20 95/55 100 Mechanical Ventilator 35 09/18/16 15:46 68 24 35 09/18/16 15:46 68 24 Mechanical Ventilator 35 09/18/16 15:39 97.2 68 20 70/35 99 Mechanical Ventilator 35 Intake and Output 09/18/16 09/19/16 19:00 07:00 Intake Total 675 ml Output Total 130 ml Balance 545 ml Intake Oral 0 ml IV Total 675 ml Output Urine Total 130 ml Laboratory Tests 09/18/16 17:20: Urine Color Brown, Urine Appearance Slightly cloudy, Urine pH 5, Urine Specific [place] 1.020, Urine Protein 1+H, Urine Glucose (UA) Negative, Urine Ketones 1+H , Urine Occult Blood 3+H, Urine Nitrite Negative, Urine Bilirubin Negative, Urine Urobilinogen Normal, Urine Leukocyte Esterase 3+H, Urine RBC 2-4H, Urine WBC 20-30H, Urine Squamous Epithelial Cells None, Urine Bacteria ManyH, Urine Yeast FewH 09/18/16 18:30: White Blood Count 11.9H, Red Blood Count 2.37L, Hemoglobin 8.3L, Hematocrit 24.1L, Mean Corpuscular Volume 102H, Mean Corpuscular Hemoglobin 35.0H, Mean Corpuscular Hemoglobin Concent 34.5, Red Cell Distribution Width 20.7H, Platelet Count 133L, Mean Platelet Volume 6.9, Neutrophils (%) (Auto) 83.2H, Lymphocytes (%) (Auto) 9.8L, Monocytes (%) (Auto) 5.3, Eosinophils (%) (Auto) 1.4, Basophils (%) (Auto) 0.2, Prothrombin Time 13.3H, Prothromb Time International Ratio 1.3H, Activated Partial Thromboplast Time 31, Sodium Level 135, Potassium Level 4.7, Chloride Level 96L, Carbon Dioxide Level 26, Anion Gap 13, Blood Urea Nitrogen 88H, Creatinine 1.3H, Estimat Glomerular Filtration Rate 56.7, Glucose Level 101, Calcium Level 8.1L, Total Bilirubin 1.1, Direct Bilirubin 0.4H, Aspartate Amino Transf (AST/SGOT) 27, Alanine Aminotransferase ( ALT/SGPT) 13, Alkaline Phosphatase 215H, Ammonia 30, Total Protein 6.1L, Albumin 1.7L, Globulin 4.4, Albumin/Globulin Ratio 0.3L, Lipase > 300H Height (Feet): 5 Height (Inches): 7.00 Weight (Pounds): 150 General Appearance: mild distress EENT: normal ENT inspection Neck: supple Cardiovascular: tachycardia Respiratory/Chest: decreased breath sounds Abdomen: hypoactive bowel sounds, distended, tender Extremities: non-tender BRIA VELASQUEZ Sep 19, 2016 08:32
[2016-09-19] MEDS: D5 1/2NS 1,000 ML IV SCH ×2 (10:00→23:55)
[2016-09-19] MEDS: cefTRIAXone 1 GM in D5W 55 ML IVPB SCH (10:01)
[2016-09-19] MEDS: Morphine Sulfate 2mg/ml Inj IVP PRN (11:12)
[2016-09-19 11:17] LABS: BASOPHILS % (AUTO) 0.3 % (0.0-2.0); EOSINOPHILS % (AUTO) 1.4 % (0.0-3.0); LYMPHOCYTES % (AUTO) 7.8 % (20.0-45.0); MEAN CORPUSCULAR HEMOGLOBIN 33.8 PG (27.0-31.0); MEAN CORPUSCULAR HGB CONC 32.3 G/DL (32.0-36.0); MEAN CORPUSCULAR VOLUME 105 FL (80-99); MEAN PLATELET VOLUME 6.7 FL (6.5-10.1); MONOCYTES % (AUTO) 6.3 % (1.0-10.0); NEUTROPHILS % (AUTO) 84.2 % (45.0-75.0); PLATELET COUNT 114 K/UL (150-450); RED BLOOD COUNT 2.45 M/UL (4.70-6.10); RED CELL DISTRIBUTION WIDTH 21.3 % (11.6-14.8); WHITE BLOOD COUNT 13.5 K/UL (4.8-10.8)
[2016-09-19 11:38] LABS: ALBUMIN/GLOBULIN RATIO 0.3 (1.0-2.7); CALCIUM 8.1 mg/dL (8.6-10.2); CREATININE 1.3 mg/dL (0.7-1.2); GLOMERULAR FILTRATION RATE 56.7 mL/min (>60); POTASSIUM 4.8 mEQ/L (3.4-4.9); TOTAL PROTEIN 6.1 g/dL (6.6-8.7)
[2016-09-19 12:00] VITALS: BP 102/53
--- NOTE | 2016-09-19 12:52 | Diagnostic Imaging Report ---
APPROVED REPORT CPT Code: 42387 Present Symptoms Shortness of breath Comments: Prior venous duplex: 08/18/2016 and 09/05/2016. RIGHT LEG: Venous imaging reveals a patent deep venous system. There is no evidence of thrombus within the femoral, popliteal or tibial segments. The greater saphenous vein is also within normal limits. Doppler indicates normal spontaneous flow within these segments. LEFT LEG: Venous imaging reveals acute, non-occlusive thrombus in the superficial femoral and popliteal veins. Imaging also reveals patency of the common femoral vein and calf veins. The greater saphenous vein is also within normal limits. YOMI Watts was informed of abnormal results at 21:50 hrs. Incidental finding: Montoya's cyst in right popliteal fossa measuring 4.1 cm x 2.1 cm x 1.5 cm.
--- NOTE | 2016-09-19 13:47 | History and Physical ---
History of Present Illness General Date patient seen: Sep 19, 2016 Reason for Hospitalization: Abdominal Pain Present Illness HPI 56 year old patient with hx of end stage liver disease, chronic trach/vent/peg is brought in from a [facility] facility for ascites. He was recently admitted for a GI bleed. He is sent over for concern of recurrence of his ascites. There is no reported fever. There is a report of pain. There are no other complaints. Allergies: Coded Allergies: No Known Allergies (Unverified , 06/09/16) Medication History Scheduled Ascorbic Acid* (Vitamin C*), 500 MG GT DAILY, (Reported) Colistimethate Sodium (Colistin), 150 MG HHN BID Cran/Vitc/Mannose/Inulin/Brom (Uti-Stat Liquid), 3,875 MG GT DAILY, (Reported) Docusate Sodium* (Colace*), 100 MG GT DAILY, (Reported) Famotidine (Famotidine), 20 MG GT DAILY, (Reported) Ferrous Sulfate (Ferrous Sulfate), 7.5 ML GT DAILY, (Reported) Folic Acid* (Folic Acid*), 1 MG GT DAILY, (Reported) Furosemide* (Lasix*), 20 MG GT EVERY 12 HOURS, (Reported) Furosemide* (Lasix*), 40 MG ORAL EVERY 12 HOURS Lactulose (Lactulose*), 30 ML GT QID, (Reported) Levetiracetam* (Levetiracetam*), 1,500 MG GT Q12HR, (Reported) Meropenem (Merrem), 1 GM IV Q8HR Multivitamin With Minerals (Multivitamins With Minerals*), 1 TAB GT DAILY, ( Reported) Na Phos,M-B/Na Phos,Di-Ba* (Fleet Enema*), 133 ML RECTAL DAILY, (Reported) Propranolol Hcl* (Inderal*), 10 MG GT BID, (Reported) Tigecycline (Tygacil), 25 MG IVPB EVERY 12 HOURS Vancomycin Hcl/D5w (Vancomycin-D5w 1 G/250 Ml), 1 GM IVPB Q24H Zinc Sulfate (Zinc Sulfate*), 220 MG GT DAILY, (Reported) Scheduled PRN Acetaminophen 160MG/5ML* (Acetaminophen*), 20 ML ORAL EVERY 4 HOURS PRN for For Pain, (Reported) Acetaminophen* (Acetaminophen 325MG Tablet*), 650 MG ORAL Q4H PRN for Fever/ Headache/Mild Pain, (Reported) Albuterol Sulfate* (Albuterol Sulfate Hhn*), 3 ML INH Q6H PRN for Shortness of Breath, (Reported) Bisacodyl (Dulcolax), 10 MG RC DAILY PRN for Constipation, (Reported) Lorazepam* (Lorazepam*), 1 MG GT Q6HR PRN for For Anxiety, (Reported) Magnesium Hydroxide* (Milk Of Magnesia*), 30 ML GT QHS PRN for Constipation, ( Reported) Na Phos,M-B/Na Phos,Di-Ba* (Fleet Enema*), 133 ML RECTAL EVERY TWO DAYS PRN for Constipation, (Reported) Naproxen Sodium (Naproxen Sodium), 220 MG GT PRN PRN for For Pain, (Reported) Miscellaneous Medications Cranberry Fruit Concentrate (Cranberry), 450 MG GT, (Reported) Patient History Healthcare decision maker PRANAY BRAGG Resuscitation status Full Code Advanced Directive on File No Past Medical/Surgical History Past Medical/Surgical History: (1) Esophageal varices determined by endoscopy (2) hep c (3) Liver cirrhosis (4) Decubitus ulcer Review of Systems All Other Systems: negative except mentioned in HPI Physical Exam General Appearance: cachetic Lines, tubes and drains: peripheral, central line HEENT: normocephalic, atraumatic Neck: non-tender, normal alignment Respiratory/Chest: chest wall non-tender, lungs clear Last 24 Hour Vital Signs Date Time Temp Pulse Resp B/P Pulse Ox O2 Delivery O2 Flow Rate FiO2 09/19/16 13:08 65 16 35 09/19/16 12:00 35 09/19/16 12:00 94.5 72 21 102/53 100 Mechanical Ventilator 35 09/19/16 11:42 94.3 09/19/16 10:42 63 18 35 09/19/16 08:40 62 16 35 09/19/16 08:09 35 09/19/16 08:00 94.3 66 17 97/57 100 Mechanical Ventilator 35 09/19/16 08:00 60 09/19/16 06:43 65 18 35 09/19/16 05:04 64 09/19/16 05:04 60 15 35 09/19/16 04:00 97.9 75 20 125/75 91 Mechanical Ventilator 35 09/19/16 04:00 35 09/19/16 03:27 62 14 35 09/19/16 01:16 65 14 35 09/19/16 00:00 35 09/19/16 00:00 98.4 61 18 121/60 90 Mechanical Ventilator 35 09/18/16 23:45 60 09/18/16 23:11 71 16 35 09/18/16 21:22 66 15 35 09/18/16 21:20 70 09/18/16 21:10 97.9 70 20 122/64 90 Mechanical Ventilator 35 09/18/16 21:00 97.9 70 20 122/64 90 Mechanical Ventilator 35 09/18/16 20:54 97.0 61 16 119/46 98 Mechanical Ventilator 35 09/18/16 19:25 70 14 35 09/18/16 17:30 68 27 35 09/18/16 17:03 35 09/18/16 16:56 97.0 68 20 95/55 100 Mechanical Ventilator 35 09/18/16 15:46 68 24 35 09/18/16 15:46 68 24 Mechanical Ventilator 35 09/18/16 15:39 97.2 68 20 70/35 99 Mechanical Ventilator 35 Intake and Output 09/18/16 09/19/16 19:00 07:00 Intake Total 675 ml Output Total 130 ml Balance 545 ml Intake Oral 0 ml IV Total 675 ml Output Urine Total 130 ml Laboratory Tests Test 09/18/16 17:20 09/18/16 18:30 09/19/16 10:00 Urine Color Brown Urine Appearance Slightly cloudy Urine pH 5 (4.5-8.0) Urine Specific [place] 1.020 (1.005-1.035) Urine Protein 1+ (NEGATIVE) H Urine Glucose (UA) Negative (NEGATIVE) Urine Ketones 1+ (NEGATIVE) H Urine Occult Blood 3+ (NEGATIVE) H Urine Nitrite Negative (NEGATIVE) Urine Bilirubin Negative (NEGATIVE) Urine Urobilinogen Normal MG/DL (0.0-1.0) Urine Leukocyte Esterase 3+ (NEGATIVE) H Urine RBC 2-4 /HPF (0 - 0) H Urine WBC 20-30 /HPF (0 - 0) H Urine Squamous Epithelial Cells None /LPF (NONE/OCC) Urine Bacteria Many /HPF (NONE) H Urine Yeast Few /HPF (NONE) H White Blood Count 11.9 K/UL (4.8-10.8) H 13.5 K/UL (4.8-10.8) H Red Blood Count 2.37 M/UL (4.70-6.10) L 2.45 M/UL (4.70-6.10) L Hemoglobin 8.3 G/DL (14.2-18.0) L 8.3 G/DL (14.2-18.0) L Hematocrit 24.1 % (42.0-52.0) L 25.7 % (42.0-52.0) L Mean Corpuscular Volume 102 FL (80-99) H 105 FL (80-99) H Mean Corpuscular Hemoglobin 35.0 PG (27.0-31.0) H 33.8 PG (27.0-31.0) H Mean Corpuscular Hemoglobin Concent 34.5 G/DL (32.0-36.0) 32.3 G/DL (32.0-36.0) Red Cell Distribution Width 20.7 % (11.6-14.8) H 21.3 % (11.6-14.8) H Platelet Count 133 K/UL (150-450) L 114 K/UL (150-450) L Mean Platelet Volume 6.9 FL (6.5-10.1) 6.7 FL (6.5-10.1) Neutrophils (%) (Auto) 83.2 % (45.0-75.0) H 84.2 % (45.0-75.0) H Lymphocytes (%) (Auto) 9.8 % (20.0-45.0) L 7.8 % (20.0-45.0) L Monocytes (%) (Auto) 5.3 % (1.0-10.0) 6.3 % (1.0-10.0) Eosinophils (%) (Auto) 1.4 % (0.0-3.0) 1.4 % (0.0-3.0) Basophils (%) (Auto) 0.2 % (0.0-2.0) 0.3 % (0.0-2.0) Prothrombin Time 13.3 SEC (9.30-11.50) H Prothromb Time International Ratio 1.3 (0.9-1.1) H Activated Partial Thromboplast Time 31 SEC (23-33) 38 SEC (23-33) H Sodium Level 135 mEQ/L (135-145) 134 mEQ/L (135-145) L Potassium Level 4.7 mEQ/L (3.4-4.9) 4.8 mEQ/L (3.4-4.9) Chloride Level 96 mEQ/L (98-107) L 98 mEQ/L (98-107) Carbon Dioxide Level 26 mEQ/L (20-30) 23 mEQ/L (20-30) Anion Gap 13 (5-15) 13 (5-15) Blood Urea Nitrogen 88 mg/dL (7-23) H 87 mg/dL (7-23) H Creatinine 1.3 mg/dL (0.7-1.2) H 1.3 mg/dL (0.7-1.2) H Estimat Glomerular Filtration Rate 56.7 mL/min (>60) 56.7 mL/min (>60) Glucose Level 101 mg/dL (74-106) 114 mg/dL (74-106) H Calcium Level 8.1 mg/dL (8.6-10.2) L 8.1 mg/dL (8.6-10.2) L Total Bilirubin 1.1 mg/dL (0.0-1.2) 0.9 mg/dL (0.0-1.2) Direct Bilirubin 0.4 mg/dL (0.1-0.3) H Aspartate Amino Transf (AST/SGOT) 27 U/L (5-40) 26 U/L (5-40) Alanine Aminotransferase (ALT/SGPT) 13 U/L (3-41) 13 U/L (3-41) Alkaline Phosphatase 215 U/L (40-129) H 216 U/L (40-129) H Ammonia 30 umol/L (16-60) Total Protein 6.1 g/dL (6.6-8.7) L 6.1 g/dL (6.6-8.7) L Albumin 1.7 g/dL (3.5-5.2) L 1.7 g/dL (3.5-5.2) L Globulin 4.4 g/dL 4.4 g/dL Albumin/Globulin Ratio 0.3 (1.0-2.7) L 0.3 (1.0-2.7) L Lipase > 300 U/L (< 60) H Microbiology Date/Time Source Procedure Growth Status 09/18/16 17:20 Urine,Clean Catch Urine Culture - Preliminary Gram Negative Navid Resulted Height (Feet): 5 Height (Inches): 7.00 Weight (Pounds): 150 Medications Current Medications Medications (Trade) Dose Ordered Sig/Hair Route PRN Reason Start Time Stop Time Status Last Admin Dose Admin Acetaminophen (Tylenol) 650 mg Q4H PRN ORAL fever 09/18/16 19:45 10/18/16 19:44 Al Hydroxide/Mg Hydroxide (Mylanta II) 30 ml Q6H PRN ORAL dyspepsia 09/18/16 19:45 10/18/16 19:44 Ceftriaxone Sodium/Dextrose (Rocephin/D5W) 55 ml @ 110 mls/hr Q24H IVPB 09/19/16 09:30 09/26/16 09:29 09/19/16 10:01 Dextrose (Dextrose 50%) STAT PRN IV Hypoglycemia 09/18/16 19:45 10/18/16 19:44 Dextrose/Sodium Chloride (D5 0.45% NS) 1,000 ml @ 75 mls/hr [id number] IV 09/18/16 20:30 10/18/16 20:29 09/19/16 10:00 Diphenhydramine HCl (Benadryl) 25 mg Q6H PRN ORAL Itching/Pruritis 09/18/16 19:45 10/18/16 19:44 09/18/16 22:59 Furosemide (Lasix) 40 mg EVERY 12 HOURS ORAL 09/18/16 21:00 10/18/16 20:59 09/19/16 08:26 Lactulose (Cephulac) 20 gm QID GT 09/18/16 21:00 10/18/16 20:59 09/19/16 08:25 Levetiracetam 1500 mg 1,500 mg Q12HR GT 09/18/16 21:00 10/18/16 20:59 09/19/16 08:26 Morphine Sulfate (Morphine Sulfate) 2 mg Q4H PRN IVP severe Pain (Pain Scale 7-10) 09/18/16 19:45 09/25/16 19:44 09/19/16 11:12 Nitroglycerin (Ntg) 0.4 mg Q5M X 3 DOSES PRN SL Prn Chest Pain 09/18/16 19:45 10/18/16 19:44 Ondansetron HCl (Zofran) 4 mg Q6H PRN IVP Nausea & Vomiting 09/18/16 19:45 10/18/16 19:44 Polyethylene Glycol (Miralax) 17 gm HSPRN PRN ORAL Constipation 09/18/16 19:45 10/18/16 19:44 Temazepam (Restoril) 15 mg HSPRN PRN ORAL Insomnia 09/18/16 19:45 09/25/16 19:44 Assessment/Plan Problem List: (1) Chronic respiratory failure ICD Codes: J96.10 - Chronic respiratory failure, unspecified whether with hypoxia or hypercapnia SNOMED: 06989508 (2) Ascites ICD Codes: R18.8 - Other ascites SNOMED: 602189298 (3) Decubitus ulcer ICD Codes: L89.90 - Pressure ulcer of unspecified site, unspecified stage SNOMED: 129355041 (4) Liver cirrhosis ICD Codes: K74.60 - Unspecified cirrhosis of liver SNOMED: 34659153 (5) Feeding by G-tube ICD Codes: Z93.1 - Gastrostomy status SNOMED: 051371104, 176730501 Assessment/Plan paracentesis, GI evaluatin resume feeding titrate vent setting DANTE HSIEH Sep 19, 2016 13:47
[2016-09-19 16:00] VITALS: BP 107/53
[2016-09-19] MEDS ORDERED: Tubing IV Secondary IV ONE ×2 (16:06→16:13)
[2016-09-19] MEDS ORDERED: D5 1/2NS 1000ml IV ONE ×2 (16:06→16:13)
[2016-09-19 20:00] VITALS: BP 96/53
[2016-09-20] VITALS: BP 100/51
[2016-09-20] MEDS: Morphine Sulfate 2mg/ml Inj IVP PRN ×2 (01:23→14:02)
[2016-09-20 04:00] VITALS: BP 109/63
[2016-09-20 08:00] VITALS: BP 101/63
[2016-09-20] MEDS: levETIRAcetam 500mg/5ml Liquid GT SCH ×2 (08:14→20:39)
[2016-09-20] MEDS: Lactulose 20gm/30ml UDC GT SCH ×4 (08:14→20:39)
[2016-09-20] MEDS: Furosemide 40mg tab ORAL SCH ×2 (08:14→20:40)
[2016-09-20] MEDS: cefTRIAXone 1 GM in D5W 55 ML IVPB SCH (09:46)
--- NOTE | 2016-09-20 10:04 | General Progress Note ---
Assessment/Plan Problem List: (1) large ascites (2) Anemia due to blood loss, acute ICD Codes: D62 - Acute posthemorrhagic anemia SNOMED: 957401412 (3) Esophageal varices determined by endoscopy ICD Codes: I85.00 - Esophageal varices without bleeding SNOMED: 12808597, 166679597 (4) Feeding by G-tube ICD Codes: Z93.1 - Gastrostomy status SNOMED: 528164955, 522175058 (5) hep c (6) Liver cirrhosis ICD Codes: K74.60 - Unspecified cirrhosis of liver SNOMED: 39653770 (7) Helicobacter pylori (H. pylori) ICD Codes: A04.8 - Other specified bacterial intestinal infections Assessment/Plan pend paracentesis rule out SBP npo fu labs ceftriaxone lasix lactulose fu Subjective ROS Limited/Unobtainable: No Allergies: Coded Allergies: No Known Allergies (Unverified , 06/09/16) Objective Last 24 Hour Vital Signs Date Time Temp Pulse Resp B/P Pulse Ox O2 Delivery O2 Flow Rate FiO2 09/20/16 09:10 78 19 35 09/20/16 08:00 94.4 86 21 101/63 99 Mechanical Ventilator 35 09/20/16 08:00 35 09/20/16 06:42 74 15 35 09/20/16 05:13 73 14 35 09/20/16 04:00 35 09/20/16 04:00 97.7 80 17 109/63 98 Mechanical Ventilator 35 09/20/16 03:35 83 09/20/16 03:16 87 26 35 09/20/16 01:06 80 25 35 09/20/16 00:00 35 09/20/16 00:00 70 09/20/16 00:00 97.7 70 19 100/51 100 Mechanical Ventilator 35 09/19/16 23:27 71 16 35 09/19/16 21:24 67 21 35 09/19/16 20:00 35 09/19/16 20:00 97.5 72 21 96/53 100 Mechanical Ventilator 95 09/19/16 19:27 65 17 35 09/19/16 19:17 63 09/19/16 16:38 66 16 35 09/19/16 16:00 93.9 65 17 107/53 100 Mechanical Ventilator 35 09/19/16 16:00 35 09/19/16 16:00 72 09/19/16 14:49 62 18 35 09/19/16 13:08 65 16 35 09/19/16 12:00 62 09/19/16 12:00 35 09/19/16 12:00 94.5 72 21 102/53 100 Mechanical Ventilator 35 09/19/16 11:42 94.3 09/19/16 10:42 63 18 35 Intake and Output 09/19/16 09/20/16 19:00 07:00 Intake Total 767 ml 825 ml Output Total 600 ml 450 ml Balance 167 ml 375 ml IV Total 767 ml 825 ml Output Urine Total 600 ml 450 ml Height (Feet): 5 Height (Inches): 7.00 Weight (Pounds): 150 General Appearance: confused EENT: normal ENT inspection Neck: supple Cardiovascular: normal rate Respiratory/Chest: decreased breath sounds Abdomen: soft, decreased bowel sounds, tender Extremities: non-tender BRIA VELASQUEZ Sep 20, 2016 10:04
[2016-09-20] MEDS ORDERED: D5 1/2NS 1000ml IV ONE (11:03)
[2016-09-20 12:00] VITALS: BP 102/63
[2016-09-20] MEDS: D5 1/2NS 1,000 ML IV SCH (13:50)
[2016-09-20 16:00] VITALS: BP 109/64
--- NOTE | 2016-09-20 16:10 | Pulmonology Progress Note ---
Assessment/Plan Problems: (1) Chronic respiratory failure (2) Ascites (3) Decubitus ulcer (4) Liver cirrhosis (5) Feeding by G-tube Respiratory: monitor respiratory rate Cardiac: continue pressors Renal: F/U I&O Infectious Disease: check cultures Gastrointestinal: hold feedings Endocrine: monitor blood sugar Hematologic: monitor H/H Neurologic: PRN Ativan Subjective ROS Limited/Unobtainable: No Constitutional: Reports: no symptoms HEENT: Repors: no symptoms Allergies: Coded Allergies: No Known Allergies (Unverified , 06/09/16) Objective Last 24 Hour Vital Signs Date Time Temp Pulse Resp B/P Pulse Ox O2 Delivery O2 Flow Rate FiO2 09/20/16 15:08 91 23 35 09/20/16 14:41 97.4 09/20/16 12:47 83 16 35 09/20/16 12:01 35 09/20/16 12:00 79 09/20/16 12:00 97.4 82 19 102/63 100 Mechanical Ventilator 35 09/20/16 12:00 97.4 82 19 102/63 100 Mechanical Ventilator 35 09/20/16 11:15 80 16 35 09/20/16 09:10 78 19 35 09/20/16 08:00 94.4 86 21 101/63 99 Mechanical Ventilator 35 09/20/16 08:00 35 09/20/16 08:00 80 09/20/16 06:42 74 15 35 09/20/16 05:13 73 14 35 09/20/16 04:00 35 09/20/16 04:00 97.7 80 17 109/63 98 Mechanical Ventilator 35 09/20/16 03:35 83 09/20/16 03:16 87 26 35 09/20/16 01:06 80 25 35 09/20/16 00:00 35 09/20/16 00:00 70 09/20/16 00:00 97.7 70 19 100/51 100 Mechanical Ventilator 35 09/19/16 23:27 71 16 35 09/19/16 21:24 67 21 35 09/19/16 20:00 35 09/19/16 20:00 97.5 72 21 96/53 100 Mechanical Ventilator 95 09/19/16 19:27 65 17 35 09/19/16 19:17 63 09/19/16 16:38 66 16 35 Intake and Output 09/19/16 09/20/16 19:00 07:00 Intake Total 767 ml 825 ml Output Total 600 ml 450 ml Balance 167 ml 375 ml IV Total 767 ml 825 ml Output Urine Total 600 ml 450 ml General Appearance: cachetic HEENT: normocephalic, atraumatic Respiratory/Chest: chest wall non-tender, lungs clear Cardiovascular: normal peripheral pulses, normal rate Abdomen: normal bowel sounds, distended Genitourinary: normal external genitalia Extremities: no clubbing Neurologic/Psychiatric: no motor/sensory deficits Microbiology Date/Time Source Procedure Growth Status 09/18/16 17:20 Urine,Clean Catch Urine Culture - Preliminary Klebsiella Pneumoniae - Mdr Resulted 09/19/16 08:22 Sacral Swab Gram Stain - Final Resulted 09/19/16 08:22 Sacral Swab Wound Culture Pending Resulted Current Medications Medications (Trade) Dose Ordered Sig/Hair Route PRN Reason Start Time Stop Time Status Last Admin Dose Admin Acetaminophen (Tylenol) 650 mg Q4H PRN ORAL fever 09/18/16 19:45 10/18/16 19:44 Al Hydroxide/Mg Hydroxide (Mylanta II) 30 ml Q6H PRN ORAL dyspepsia 09/18/16 19:45 10/18/16 19:44 Ceftriaxone Sodium/Dextrose (Rocephin/D5W) 55 ml @ 110 mls/hr Q24H IVPB 09/19/16 09:30 09/26/16 09:29 09/20/16 09:46 Dextrose (Dextrose 50%) STAT PRN IV Hypoglycemia 09/18/16 19:45 10/18/16 19:44 Dextrose/Sodium Chloride (D5 0.45% NS) 1,000 ml @ 75 mls/hr [id number] IV 09/18/16 20:30 10/18/16 20:29 09/20/16 13:50 Diphenhydramine HCl (Benadryl) 25 mg Q6H PRN ORAL Itching/Pruritis 09/18/16 19:45 10/18/16 19:44 09/18/16 22:59 Furosemide (Lasix) 40 mg EVERY 12 HOURS ORAL 09/18/16 21:00 10/18/16 20:59 09/20/16 08:14 Lactulose (Cephulac) 20 gm QID GT 09/18/16 21:00 10/18/16 20:59 09/20/16 13:50 Levetiracetam 1500 mg 1,500 mg Q12HR GT 09/18/16 21:00 10/18/16 20:59 09/20/16 08:14 Morphine Sulfate (Morphine Sulfate) 2 mg Q4H PRN IVP severe Pain (Pain Scale 7-10) 09/18/16 19:45 09/25/16 19:44 09/20/16 14:02 Nitroglycerin (Ntg) 0.4 mg Q5M X 3 DOSES PRN SL Prn Chest Pain 09/18/16 19:45 10/18/16 19:44 Ondansetron HCl (Zofran) 4 mg Q6H PRN IVP Nausea & Vomiting 09/18/16 19:45 10/18/16 19:44 Polyethylene Glycol (Miralax) 17 gm HSPRN PRN ORAL Constipation 09/18/16 19:45 10/18/16 19:44 Temazepam (Restoril) 15 mg HSPRN PRN ORAL Insomnia 09/18/16 19:45 09/25/16 19:44 DANTE HSIEH Sep 20, 2016 16:10
[2016-09-20 20:00] VITALS: BP 96/61
[2016-09-21] VITALS: BP 114/68
[2016-09-21] MEDS: D5 1/2NS 1,000 ML IV SCH ×2 (01:50→15:07)
[2016-09-21] MEDS: Morphine Sulfate 2mg/ml Inj IVP PRN ×3 (03:59→23:24)
[2016-09-21 04:00] VITALS: BP 106/57
[2016-09-21 08:00] VITALS: BP 100/41
[2016-09-21] MEDS: Lactulose 20gm/30ml UDC GT SCH ×4 (08:29→21:37)
[2016-09-21] MEDS: Furosemide 40mg tab ORAL SCH ×2 (08:30→21:37)
[2016-09-21] MEDS: levETIRAcetam 500mg/5ml Liquid GT SCH ×2 (08:30→21:37)
[2016-09-21] MEDS: cefTRIAXone 1 GM in D5W 55 ML IVPB SCH (08:31)
--- NOTE | 2016-09-21 10:05 | Infectious Diseases Prog Note ---
Subjective Allergies: Coded Allergies: No Known Allergies (Unverified , 06/09/16) Objective Vital Signs Last 24 Hour Vital Signs Date Time Temp Pulse Resp B/P Pulse Ox O2 Delivery O2 Flow Rate FiO2 09/21/16 08:52 106 18 35 09/21/16 08:00 97.0 108 24 100/41 100 Mechanical Ventilator 35 09/21/16 08:00 35 09/21/16 08:00 109 09/21/16 06:33 115 18 35 09/21/16 05:05 124 18 35 09/21/16 04:00 35 09/21/16 04:00 97.4 117 24 106/57 100 Mechanical Ventilator 35 09/21/16 04:00 141 09/21/16 03:16 90 25 35 09/21/16 01:11 84 20 35 09/21/16 00:00 97.7 90 18 114/68 97 Mechanical Ventilator 35 09/21/16 00:00 35 09/20/16 23:15 94 16 35 09/20/16 21:02 84 24 35 09/20/16 20:00 98.0 87 17 96/61 100 Mechanical Ventilator 35 09/20/16 20:00 86 09/20/16 19:16 35 09/20/16 19:15 52 19 35 09/20/16 16:40 81 15 35 09/20/16 16:00 88 09/20/16 16:00 97.6 90 22 109/64 98 Mechanical Ventilator 35 09/20/16 16:00 35 09/20/16 15:08 91 23 35 09/20/16 14:41 97.4 09/20/16 12:47 83 16 35 09/20/16 12:01 35 09/20/16 12:00 79 09/20/16 12:00 97.4 82 19 102/63 100 Mechanical Ventilator 35 09/20/16 12:00 97.4 82 19 102/63 100 Mechanical Ventilator 35 09/20/16 11:15 80 16 35 Height (Feet): 5 Height (Inches): 7.00 Weight (Pounds): 150 Microbiology Date/Time Source Procedure Growth Status 09/18/16 17:20 Urine,Clean Catch Urine Culture - Final K.pneumoniae Carbapenem Resist Complete 09/19/16 08:22 Sacral Swab Gram Stain - Final Resulted 09/19/16 08:22 Sacral Swab Wound Culture Pending Resulted Current Medications Medications (Trade) Dose Ordered Sig/Hair Route PRN Reason Start Time Stop Time Status Last Admin Dose Admin Acetaminophen (Tylenol) 650 mg Q4H PRN ORAL fever 09/18/16 19:45 10/18/16 19:44 Al Hydroxide/Mg Hydroxide (Mylanta II) 30 ml Q6H PRN ORAL dyspepsia 09/18/16 19:45 10/18/16 19:44 Ceftriaxone Sodium/Dextrose (Rocephin/D5W) 55 ml @ 110 mls/hr Q24H IVPB 09/19/16 09:30 09/26/16 09:29 09/21/16 08:31 Dextrose (Dextrose 50%) STAT PRN IV Hypoglycemia 09/18/16 19:45 10/18/16 19:44 Dextrose/Sodium Chloride (D5 0.45% NS) 1,000 ml @ 75 mls/hr [id number] IV 09/18/16 20:30 10/18/16 20:29 09/21/16 01:50 Diphenhydramine HCl (Benadryl) 25 mg Q6H PRN ORAL Itching/Pruritis 09/18/16 19:45 10/18/16 19:44 09/18/16 22:59 Furosemide (Lasix) 40 mg EVERY 12 HOURS ORAL 09/18/16 21:00 10/18/16 20:59 09/21/16 08:30 Lactulose (Cephulac) 20 gm QID GT 09/18/16 21:00 10/18/16 20:59 09/20/16 20:39 Levetiracetam 1500 mg 1,500 mg Q12HR GT 09/18/16 21:00 10/18/16 20:59 09/21/16 08:30 Morphine Sulfate (Morphine Sulfate) 2 mg Q4H PRN IVP severe Pain (Pain Scale 7-10) 09/18/16 19:45 09/25/16 19:44 09/21/16 03:59 Nitroglycerin (Ntg) 0.4 mg Q5M X 3 DOSES PRN SL Prn Chest Pain 09/18/16 19:45 10/18/16 19:44 Ondansetron HCl (Zofran) 4 mg Q6H PRN IVP Nausea & Vomiting 09/18/16 19:45 8/20/17 19:44 Polyethylene Glycol (Miralax) 17 gm HSPRN PRN ORAL Constipation 09/18/16 19:45 10/18/16 19:44 Temazepam (Restoril) 15 mg HSPRN PRN ORAL Insomnia 09/18/16 19:45 09/25/16 19:44 SHARRI RAMÍREZ M.D. Sep 21, 2016 10:05
--- NOTE | 2016-09-21 10:38 | Wound Care Consultation ---
Wound Assessment Wound Assessment #1: Wound Number: #1 Wound Present on Admission: Yes New Wound: No Status Change of Wound: No Wound Location Body Site Modif: mid Wound Location Body Site: sacral Wound Type: pressure ulcer Marlin Test: Does not Marlin Pressure Ulcer Stage: IV/unstageable Wound Thickness: Full Thickness Wound Length: 4.5 Wound Width: 4.5 Wound Depth: 0.8 Percent of Wound [place]/Red: 90 Percent of Wound Bed Yellow/Wh: 10 - thin scattered. Wound Drainage Description: Serosanguineous Wound Drainage Amount: Copious Wound Drainage Odor: None/Absent Tissue Surrounding Wound: Macerated - noted maceration surrounding periwound to sacral Wound General Appearance: Reddened, Draining, Bone Palpable, Muscle Visible Wound Assessment #2: Wound Number: #2 New Wound: No Status Change of Wound: No Wound Location Body Site Modif: right Wound Location Body Site: buttocks Wound Type: other - self inflicted scratch Marlin Test: Does not Marlin Wound Thickness: Full Thickness Wound Length: 1.0 Wound Width: 1.0 Wound Depth: 0.2 Percent of Wound [place]/Red: 90 Percent of Wound Bed Yellow/Wh: 10 Wound Drainage Description: Serosanguineous Wound Drainage Amount: Scant Wound Drainage Odor: None/Absent Tissue Surrounding Wound: Erythemic Wound General Appearance: Reddened Wound Assessment #3: Wound Number: #3 Wound Present on Admission: Yes New Wound: No Status Change of Wound: No Wound Location Body Site Modif: left Wound Location Body Site: heel Wound Type: pressure ulcer Marlin Test: Does not Marlin Pressure Ulcer Stage: deep tissue injury Wound Thickness: Full Thickness Wound Length: 10.0 Wound Width: 10.0 Wound Depth: utd Percent of Wound Purple/Maroon: 100 Wound Drainage Amount: None Wound Drainage Odor: None/Absent Tissue Surrounding Wound: Erythemic Wound General Appearance: Reddened Wound Assessment #4: Wound Number: #4 Wound Present on Admission: Yes New Wound: No Status Change of Wound: No Wound Location Body Site Modif: right Wound Location Body Site: heel Wound Type: pressure ulcer Marlin Test: Does not Marlin Pressure Ulcer Stage: deep tissue injury Wound Thickness: Full Thickness Wound Length: 10.0 Wound Width: 10.0 Wound Depth: utd Percent of Wound Purple/Maroon: 100 Wound Drainage Amount: None Wound Drainage Odor: None/Absent Tissue Surrounding Wound: Erythemic Wound General Appearance: Reddened Wound Assessment #5: Wound Number: #5 Wound Present on Admission: Yes New Wound: No Status Change of Wound: No Wound Location Body Site Modif: left, mid, lateral Wound Location Body Site: foot Wound Type: pressure ulcer Marlin Test: Does not Marlin Pressure Ulcer Stage: deep tissue injury - suspected Wound Thickness: Full Thickness Wound Length: 2.0 Wound Width: 2.0 Wound Depth: utd Wound Drainage Amount: None Wound Drainage Odor: None/Absent Tissue Surrounding Wound: Erythemic Wound General Appearance: Reddened Wound Assessment #6: Wound Number: #6 Wound Present on Admission: Yes New Wound: No Status Change of Wound: No Wound Location Body Site Modif: left Wound Location Body Site: metatarsal head - 5th Wound Type: pressure ulcer Marlin Test: Does not Marlin Pressure Ulcer Stage: deep tissue injury Wound Thickness: Full Thickness Wound Length: 1.0 Wound Width: 1.0 Wound Depth: utd Percent of Wound Purple/Maroon: 100 Wound Drainage Amount: None Wound Drainage Odor: None/Absent Tissue Surrounding Wound: Erythemic Wound General Appearance: Reddened Wound Assessment #7: Wound Number: #7 Wound Present on Admission: Yes New Wound: No Status Change of Wound: No Wound Location Body Site Modif: right, mid, lateral Wound Location Body Site: foot Wound Type: pressure ulcer Marlin Test: Does not Marlin Pressure Ulcer Stage: deep tissue injury - suspected. Wound Thickness: Full Thickness Wound Length: 2.0 Wound Width: 2.0 Wound Depth: utd Percent of Wound Purple/Maroon: 100 Wound Drainage Amount: None Wound Drainage Odor: None/Absent Tissue Surrounding Wound: Erythemic Wound General Appearance: Reddened Wound Assessment #8: Wound Number: #8 Wound Present on Admission: Yes New Wound: No Status Change of Wound: No Wound Location Body Site Modif: right Wound Location Body Site: metatarsal head - 5th Wound Type: pressure ulcer Marlin Test: Does not Marlin Pressure Ulcer Stage: deep tissue injury Wound Thickness: Full Thickness Wound Length: 1.0 Wound Width: 1.0 Wound Depth: utd Percent of Wound Purple/Maroon: 100 Wound Drainage Amount: None Wound Drainage Odor: None/Absent Tissue Surrounding Wound: Erythemic Wound General Appearance: Reddened Wound Assessment #9: Wound Number: #9 Wound Present on Admission: Yes New Wound: No Status Change of Wound: No Wound Location Body Site Modif: right Wound Location Body Site: metatarsal head - 1st Wound Type: pressure ulcer Marlin Test: Does not Marlin Pressure Ulcer Stage: deep tissue injury - suspected Wound Thickness: Full Thickness Wound Length: 2.0 Wound Width: 1.0 Wound Depth: utd Percent of Wound Purple/Maroon: 100 Wound Drainage Amount: None Wound Drainage Odor: None/Absent Tissue Surrounding Wound: Erythemic Wound General Appearance: Reddened Wound Assessment #10: Wound Number: #10 Wound Present on Admission: Yes New Wound: No Status Change of Wound: No Wound Location Body Site Modif: left Wound Location Body Site: metatarsal head - 1st Wound Type: pressure ulcer Marlin Test: Does not Marlin Pressure Ulcer Stage: deep tissue injury Wound Thickness: Full Thickness Wound Length: 2.0 Wound Width: 2.0 Wound Depth: utd Percent of Wound Purple/Maroon: 100 Wound Drainage Amount: None Wound Drainage Odor: None/Absent Tissue Surrounding Wound: Erythemic Wound General Appearance: Reddened Wound Comment #1 Sacral pressure ulcer stage IV. #2 Right buttock self inflicted scratch full thickness. #3 Left heel deep tissue injury pressure ulcer. #4 Right heel deep tissue injury pressure ulcer. #5 Left lateral mid foot suspected deep tissue injury. #6 Left 5th metatarsal head deep tissue injury. #7 Left 1st metatarsal head deep tissue injury. #8 Right mid lateral foot suspected deep tissue injury. #9 Right 5th metatarsal head deep tissue injury. #10 Right 1st metatarsal head deep tissue injury. Recommendation. -Local wound care per protocol. - Apply low air loss p200 mattress. - Turn and reposition. - Keep clean and dry. - Offload affected sites. -Optimize nutrition. -Apply heel protectors. -Offload heels and feet. -Avoid shear and friction. -Assess and notify MD for any further change of condition to skin noted. LATOYA VAN Sep 21, 2016 10:38
--- NOTE | 2016-09-21 11:47 | GI Progress Note ---
Assessment/Plan Problems: (1) Sepsis ICD Codes: A41.9 - Sepsis, unspecified organism SNOMED: 29749559 (2) large ascites (3) Esophageal varices determined by endoscopy ICD Codes: I85.00 - Esophageal varices without bleeding SNOMED: 66494661, 630007123 (4) Feeding by G-tube ICD Codes: Z93.1 - Gastrostomy status SNOMED: 932584755, 391563092 (5) Liver cirrhosis ICD Codes: K74.60 - Unspecified cirrhosis of liver SNOMED: 39156482 (6) Ascites ICD Codes: R18.8 - Other ascites SNOMED: 658316142 Status: unchanged Status Narrative Discussed with Dr. Arndt. Assessment/Plan pend paracentesis rule out SBP npo fu labs ceftriaxone Lasix lactulose fu Subjective Subjective abdominal distention, ascites Objective Last 24 Hour Vital Signs Date Time Temp Pulse Resp B/P Pulse Ox O2 Delivery O2 Flow Rate FiO2 09/21/16 11:04 95 18 35 09/21/16 08:52 106 18 35 09/21/16 08:00 97.0 108 24 100/41 100 Mechanical Ventilator 35 09/21/16 08:00 35 09/21/16 08:00 109 09/21/16 06:33 115 18 35 09/21/16 05:05 124 18 35 09/21/16 04:00 35 09/21/16 04:00 97.4 117 24 106/57 100 Mechanical Ventilator 35 09/21/16 04:00 141 09/21/16 03:16 90 25 35 09/21/16 01:11 84 20 35 09/21/16 00:00 97.7 90 18 114/68 97 Mechanical Ventilator 35 09/21/16 00:00 35 09/20/16 23:15 94 16 35 09/20/16 21:02 84 24 35 09/20/16 20:00 98.0 87 17 96/61 100 Mechanical Ventilator 35 09/20/16 20:00 86 09/20/16 19:16 35 09/20/16 19:15 52 19 35 09/20/16 16:40 81 15 35 09/20/16 16:00 88 09/20/16 16:00 97.6 90 22 109/64 98 Mechanical Ventilator 35 09/20/16 16:00 35 09/20/16 15:08 91 23 35 09/20/16 14:41 97.4 09/20/16 12:47 83 16 35 09/20/16 12:01 35 09/20/16 12:00 79 09/20/16 12:00 97.4 82 19 102/63 100 Mechanical Ventilator 35 09/20/16 12:00 97.4 82 19 102/63 100 Mechanical Ventilator 35 Intake and Output 09/20/16 09/21/16 19:00 07:00 Intake Total 817 ml 375 ml Output Total 653 ml 400 ml Balance 164 ml -25 ml IV Total 817 ml 375 ml Output Urine Total 653 ml 400 ml Height (Feet): 5 Height (Inches): 7.00 Weight (Pounds): 150 General Appearance: no apparent distress, alert Cardiovascular: normal rate Respiratory/Chest: other - mech vent Abdominal Exam: distended, ascites Paulette Romero N.P. Sep 21, 2016 11:47
--- NOTE | 2016-09-21 11:59 | Pulmonology Progress Note ---
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 Discussed with: consultants, mental health case manager Subjective ROS Limited/Unobtainable: No Constitutional: Reports: no symptoms HEENT: Repors: no symptoms Respiratory: Reports: no symptoms Cardiovascular: Reports: no symptoms Allergies: Coded Allergies: No Known Allergies (Unverified , 06/09/16) Objective Last 24 Hour Vital Signs Date Time Temp Pulse Resp B/P Pulse Ox O2 Delivery O2 Flow Rate FiO2 09/21/16 11:04 95 18 35 09/21/16 08:52 106 18 35 09/21/16 08:00 97.0 108 24 100/41 100 Mechanical Ventilator 35 09/21/16 08:00 35 09/21/16 08:00 109 09/21/16 06:33 115 18 35 09/21/16 05:05 124 18 35 09/21/16 04:00 35 09/21/16 04:00 97.4 117 24 106/57 100 Mechanical Ventilator 35 09/21/16 04:00 141 09/21/16 03:16 90 25 35 09/21/16 01:11 84 20 35 09/21/16 00:00 97.7 90 18 114/68 97 Mechanical Ventilator 35 09/21/16 00:00 35 09/20/16 23:15 94 16 35 09/20/16 21:02 84 24 35 09/20/16 20:00 98.0 87 17 96/61 100 Mechanical Ventilator 35 09/20/16 20:00 86 09/20/16 19:16 35 09/20/16 19:15 52 19 35 09/20/16 16:40 81 15 35 09/20/16 16:00 88 09/20/16 16:00 97.6 90 22 109/64 98 Mechanical Ventilator 35 09/20/16 16:00 35 09/20/16 15:08 91 23 35 09/20/16 14:41 97.4 09/20/16 12:47 83 16 35 09/20/16 12:01 35 09/20/16 12:00 79 09/20/16 12:00 97.4 82 19 102/63 100 Mechanical Ventilator 35 09/20/16 12:00 97.4 82 19 102/63 100 Mechanical Ventilator 35 Intake and Output 09/20/16 09/21/16 19:00 07:00 Intake Total 817 ml 375 ml Output Total 653 ml 400 ml Balance 164 ml -25 ml IV Total 817 ml 375 ml Output Urine Total 653 ml 400 ml General Appearance: WD/WN HEENT: normocephalic Respiratory/Chest: chest wall non-tender, lungs clear Cardiovascular: normal peripheral pulses, normal rate Abdomen: normal bowel sounds, soft, non tender Genitourinary: normal external genitalia Skin: no lesions 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 Lymphatic: no neck adenopathy Microbiology Date/Time Source Procedure Growth Status 09/18/16 17:20 Urine,Clean Catch Urine Culture - Final K.pneumoniae Carbapenem Resist Complete 09/19/16 08:22 Sacral Swab Gram Stain - Final Resulted 09/19/16 08:22 Wound Culture - Preliminary Gram Negative Bacillus 1 YEAST Resulted Current Medications Medications (Trade) Dose Ordered Sig/Hair Route PRN Reason Start Time Stop Time Status Last Admin Dose Admin Acetaminophen (Tylenol) 650 mg Q4H PRN ORAL fever 09/18/16 19:45 10/18/16 19:44 Al Hydroxide/Mg Hydroxide (Mylanta II) 30 ml Q6H PRN ORAL dyspepsia 09/18/16 19:45 10/18/16 19:44 Ceftriaxone Sodium/Dextrose (Rocephin/D5W) 55 ml @ 110 mls/hr Q24H IVPB 09/19/16 09:30 09/26/16 09:29 09/21/16 08:31 Dextrose (Dextrose 50%) STAT PRN IV Hypoglycemia 09/18/16 19:45 10/18/16 19:44 Dextrose/Sodium Chloride (D5 0.45% NS) 1,000 ml @ 75 mls/hr Q11D14S IV 09/18/16 20:30 10/18/16 20:29 09/21/16 01:50 Diphenhydramine HCl (Benadryl) 25 mg Q6H PRN ORAL Itching/Pruritis 09/18/16 19:45 10/18/16 19:44 09/18/16 22:59 Furosemide (Lasix) 40 mg EVERY 12 HOURS ORAL 09/18/16 21:00 10/18/16 20:59 09/21/16 08:30 Lactulose (Cephulac) 20 gm QID GT 09/18/16 21:00 10/18/16 20:59 09/20/16 20:39 Levetiracetam 1500 mg 1,500 mg Q12HR GT 09/18/16 21:00 10/18/16 20:59 09/21/16 08:30 Morphine Sulfate (Morphine Sulfate) 2 mg Q4H PRN IVP severe Pain (Pain Scale 7-10) 09/18/16 19:45 09/25/16 19:44 09/21/16 10:31 Nitroglycerin (Ntg) 0.4 mg Q5M X 3 DOSES PRN SL Prn Chest Pain 09/18/16 19:45 10/18/16 19:44 Ondansetron HCl (Zofran) 4 mg Q6H PRN IVP Nausea & Vomiting 09/18/16 19:45 10/18/16 19:44 Polyethylene Glycol (Miralax) 17 gm HSPRN PRN ORAL Constipation 09/18/16 19:45 10/18/16 19:44 Temazepam (Restoril) 15 mg HSPRN PRN ORAL Insomnia 09/18/16 19:45 09/25/16 19:44 DANTE HSIEH Sep 21, 2016 11:59
[2016-09-21 12:00] VITALS: BP 98/59
--- NOTE | 2016-09-21 12:14 | Consultation ---
Consult Note Assessment/Plan [id number] A: // Leukocytosis // Probable UTI hx of KPC and ESBL Coli urinary catheter associated UTI, h/o ESBL E coli //hx of chronic ascites, july2016, neg for SBP //hx of recurrent HCAP/VAP SCx: Psa, Pr mirabilis, KPC //hx of polymicrobial bactermia (MRSA, M. morganii, Psa) with TTE negative for IE s/p treatment //hx of recurrent Stage IV sacral decubitus ulcer //HCV Ab+ //Negative HIV--09/04/16 //Elevated alkaline phosphatase with negative HIDA scan 07/15 //Afebrile //H. pylori on last EGD pending outpatient treatment //UGIB d/t esophageal ulcer and severe portal hypertensive gastropathy 07/22/16 s/p banding 08/20/16 //Chronic liver disease/cirrhosis with elevated LFTs US: reactive GB wall thickening CT: liver cirrhosis with stigmata of portal hypertension //chronic VDRF s/p trach and peg //h/o CVA //[facility] resident //MDRO colonized //NKDA PLAN: cont tigecycline d# 1 / 1 0 ( dose adjusted for Child-Man Class C ) 09/07 SP zosyn d#3 monitor blood cx and Urine cx wound care to area around peg follow CBC and BMP thank you SHARRI RAMÍREZ M.D. Sep 21, 2016 12:14
[2016-09-21] MEDS ORDERED: Tigecycline 100 MG in D5W 110 ML IVPB ONE (13:30)
--- NOTE | 2016-09-21 14:16 | Consultation ---
DATE OF CONSULTATION: INFECTIOUS DISEASES CONSULTATION CONSULTING PHYSICIAN: Marc Urena M.D. REFERRING PHYSICIAN: Uma Breen M.D. REASON FOR CONSULTATION: Evaluation of the patient for sepsis, possible pneumonia, and antibiotic management. HISTORY OF PRESENT ILLNESS: The patient is a 56-year-old male with multiple medical problems, well known to our service from recent admission, who was transferred to this medical center due to increase of ascites and abdominal distention. The patient was found to have leukocytosis as worsened over the 24 hours. Infectious Disease consultation has been requested for further evaluation of the patient and antibiotic management. PAST MEDICAL HISTORY: 1. History of ESBL E. coli urinary tract infection. 2. History of chronic ascites. Prior workup negative for . 3. History of recurrent pneumonia. 4. History of polymicrobial bacteremia. 5. Stage 4 decubitus. 6. Hepatitis C antibody positive. 7. History of negative antibody screen test. 8. History of elevated alkaline phosphatase . 9. History of upper GI bleed. 10. History of chronic liver disease. 11. History of ventilator-dependent respiratory failure. 12. History of placement. MEDICATIONS: Cefepime. ALLERGIES: No known drug allergies. SOCIAL HISTORY: Negative for alcohol, drug abuse or smoking. FAMILY HISTORY: Noncontributory. REVIEW OF SYSTEMS: Unobtainable. PHYSICAL EXAMINATION: VITAL SIGNS: Temperature 98 degrees, blood pressure 100/51, pulse 56, and respiratory rate 18. HEENT: No pale conjunctivae. No icterus. NECK: No lymphadenopathy. CHEST: Coarse breathing sounds. HEART: S1 and S2. ABDOMEN: Soft and obese. EXTREMITIES: No cyanosis at this time. NEUROLOGIC: Awake. LABORATORY DATA: White blood cells 13, hemoglobin 8.2, and platelets 114,000. UA, 20 to 30 white blood cells. BUN 87 and creatinine 1.3. ALT and AST are unremarkable. Alkaline phosphatase . ASSESSMENT: The patient is a 56-year-old male with multiple medical problems, who has been admitted to this medical center with increase of ascites. The patient has leukocytosis and also has pyuria, possible underlying cause of urinary tract infection and decrease concentration. PLAN: 1. We will start the patient on IV Tygacil. 2. Monitor CBC. 3. Monitor BMP. 4. Monitor cultures (blood and urine). The patient had paracentesis for the cell count for evaluation of the patient for possible peritonitis. Thank you, Dr. Breen, for allowing me to participate in the care of this patient. I will follow the patient with you during this hospitalization. Marc Urena M.D. DR: BHUPINDER JOB#: [id number] CC:
--- NOTE | 2016-09-21 14:49 | Diagnostic Imaging Report ---
Indication: Elevated pancreatic enzymes. Abnormal renal function tests. Abnormal liver function tests Technique: Contreras-scale and duplex images of the upper abdomen were obtained Comparison: 07/11/2016 Findings: Gallbladder demonstrates gallstones. Gallbladder wall is thickened, measures 5 mm in thickness. Sonographic Hinson's sign is negative. Common bile duct measures 7 mm in diameter. No intrahepatic biliary ductal dilatation. Liver demonstrates coarsened echogenicity, atrophy, nodular surface. Portal vein and hepatic veins are patent. There is considerable ascites. Pancreas is obscured by bowel gas. Spleen is unremarkable. Left kidney measures 10.7 cm in length. Right kidney measures 11.3 cm length. Both kidneys demonstrate normal echogenicity. There is no hydronephrosis. No focal abnormality . Abdominal aorta is obscured by bowel gas . . Prior exam, previously demonstrated splenic enlargement is not evident currently Impression: Evidence of hepatic cirrhosis, also previously demonstrated Ascites Cholelithiasis, also previously described. Gallbladder wall thickening, probably secondary to the hepatic abnormality. Acute cholecystitis not completely excludable, however. Consider nuclear medicine hepatobiliary scanning for further evaluation if clinically indicated Negative for dilated ducts Note nonvisualization of pancreas and abdominal aorta
[2016-09-21 16:00] VITALS: BP 131/68
[2016-09-21] MEDS ORDERED: D5 1/2NS 1000ml IV ONE (16:24)
--- NOTE | 2016-09-21 17:11 | Diagnostic Imaging Report ---
Indications: Ascites Technique: Ultrasound used to localize optimal puncture site. Sterile prepping and draping right lower quadrant. Local anesthesia with 1% lidocaine. Under real-time ultrasound guidance, puncture peritoneal space using paracentesis needle. Stylet removed. Catheter placed to vacuum bottle suction. Total 11 liters of clear yellow fluid aspirated. Patient tolerated procedure well, without immediate complication. Findings: Followup sonography demonstrates complete resolution of peritoneal fluid. Impression: Successful ultrasound-guided paracentesis, yielding 11 liters of fluid
[2016-09-21 20:00] VITALS: BP 105/55
[2016-09-21 22:43] LABS: ABG PCO2 26.3 mmHg (35.0-45.0)
[2016-09-21 22:44] LABS: ABG ALLEN TEST POSITIVE; ABG BASE EXCESS -5.9
[2016-09-21] MEDS: Tigecycline 50 MG in D5W 110 ML IVPB SCH (23:26)
[2016-09-22] VITALS: BP 144/50
[2016-09-22 04:00] VITALS: BP 94/59
[2016-09-22] MEDS: D5 1/2NS 1,000 ML IV SCH (04:12)
[2016-09-22 08:00] VITALS: BP 109/62
[2016-09-22] MEDS: Tigecycline 50 MG in D5W 110 ML IVPB SCH (08:07)
[2016-09-22] MEDS: Lactulose 20gm/30ml UDC GT SCH ×2 (08:07→13:00)
[2016-09-22] MEDS: levETIRAcetam 500mg/5ml Liquid GT SCH (08:07)
[2016-09-22] MEDS: Furosemide 40mg tab ORAL SCH (08:07)
--- NOTE | 2016-09-22 09:00 | Infectious Diseases Prog Note ---
Assessment/Plan Assessment/Plan A: Sepsis UTI Cirrhosis Ascites s/p paracentesis VDRF Cholelithiasis Stage 4 sacral ulcer P: Continue Tygacil will f/u cultures Subjective ROS Limited/Unobtainable: Yes Allergies: Coded Allergies: No Known Allergies (Unverified , 06/09/16) Objective Vital Signs Last 24 Hour Vital Signs Date Time Temp Pulse Resp B/P Pulse Ox O2 Delivery O2 Flow Rate FiO2 09/22/16 07:00 111 24 35 09/22/16 04:38 103 21 35 09/22/16 04:13 103 09/22/16 04:00 95.9 107 20 94/59 100 Mechanical Ventilator 35 09/22/16 04:00 35 09/22/16 03:08 101 14 35 09/22/16 01:25 104 17 35 09/22/16 00:00 110 09/22/16 00:00 35 09/22/16 00:00 95.5 101 20 144/50 100 Mechanical Ventilator 35 09/21/16 22:51 103 17 35 09/21/16 21:22 95 18 35 09/21/16 20:00 96.1 99 17 105/55 100 Mechanical Ventilator 35 09/21/16 20:00 35 09/21/16 19:49 96 09/21/16 19:04 89 15 35 09/21/16 17:02 99 18 35 09/21/16 16:00 80 09/21/16 16:00 35 09/21/16 16:00 97.1 80 18 131/68 100 Mechanical Ventilator 35 09/21/16 15:20 103 18 35 09/21/16 13:45 98 18 35 09/21/16 12:00 35 09/21/16 12:00 89 09/21/16 12:00 97.0 88 18 98/59 100 Mechanical Ventilator 35 09/21/16 11:04 95 18 35 Height (Feet): 5 Height (Inches): 7.00 Weight (Pounds): 150 HEENT: status post trach Respiratory/Chest: lungs clear, other - on ventilator Cardiovascular: tachycardia Abdomen: soft, non tender, other - GT feeding Extremities: no edema Neurologic/Psychiatric: other - opens eyes only Microbiology Date/Time Source Procedure Growth Status 09/21/16 12:30 Urine,Clean Catch Urine Culture - Preliminary Gram Negative Bacillus 1 Resulted Laboratory Tests Test 09/21/16 22:22 Arterial Blood pH 7.446 (7.350-7.450) Arterial Blood Partial Pressure CO2 26.3 mmHg (35.0-45.0) L Arterial Blood Partial Pressure O2 141.3 mmHg (75.0-100.0) H Arterial Blood HCO3 17.7 mmol/L (22.0-26.0) L Arterial Blood Oxygen Saturation 98.6 % (92.0-98.0) H Arterial Blood Base Excess -5.9 Primitivo Test Positive Current Medications Medications (Trade) Dose Ordered Sig/Hair Route PRN Reason Start Time Stop Time Status Last Admin Dose Admin Acetaminophen (Tylenol) 650 mg Q4H PRN ORAL fever 09/18/16 19:45 10/18/16 19:44 Al Hydroxide/Mg Hydroxide (Mylanta II) 30 ml Q6H PRN ORAL dyspepsia 09/18/16 19:45 10/18/16 19:44 Dextrose (Dextrose 50%) STAT PRN IV Hypoglycemia 09/18/16 19:45 10/18/16 19:44 Dextrose/Sodium Chloride (D5 0.45% NS) 1,000 ml @ 75 mls/hr [id number] IV 09/18/16 20:30 10/18/16 20:29 09/22/16 04:12 Diphenhydramine HCl (Benadryl) 25 mg Q6H PRN ORAL Itching/Pruritis 09/18/16 19:45 10/18/16 19:44 09/18/16 22:59 Furosemide (Lasix) 40 mg EVERY 12 HOURS ORAL 09/18/16 21:00 10/18/16 20:59 09/22/16 08:07 Lactulose (Cephulac) 20 gm QID GT 09/18/16 21:00 10/18/16 20:59 09/22/16 08:07 Levetiracetam 1500 mg 1,500 mg Q12HR GT 09/18/16 21:00 10/18/16 20:59 09/22/16 08:07 Morphine Sulfate (Morphine Sulfate) 2 mg Q4H PRN IVP severe Pain (Pain Scale 7-10) 09/18/16 19:45 09/25/16 19:44 09/21/16 23:24 Nitroglycerin (Ntg) 0.4 mg Q5M X 3 DOSES PRN SL Prn Chest Pain 09/18/16 19:45 10/18/16 19:44 Ondansetron HCl (Zofran) 4 mg Q6H PRN IVP Nausea & Vomiting 09/18/16 19:45 10/18/16 19:44 Polyethylene Glycol (Miralax) 17 gm HSPRN PRN ORAL Constipation 09/18/16 19:45 10/18/16 19:44 Temazepam (Restoril) 15 mg HSPRN PRN ORAL Insomnia 09/18/16 19:45 09/25/16 19:44 Tigecycline/ Dextrose (Tygacil/D5W) 110 ml @ 220 mls/hr EVERY 12 HOURS IVPB 09/22/16 00:00 09/29/16 00:00 09/22/16 08:07 REHANA HINES Sep 22, 2016 09:00
[2016-09-22] MEDS ORDERED: Tubing IV Secondary IV ONE (10:05)
[2016-09-22] MEDS ORDERED: D5 1/2NS 1000ml IV ONE (10:05)
[2016-09-22 12:00] VITALS: BP 113/69
[2016-09-22 13:30] LABS: MEAN CORPUSCULAR HEMOGLOBIN 33.3 PG (27.0-31.0); MEAN CORPUSCULAR HGB CONC 29.4 G/DL (32.0-36.0); MEAN CORPUSCULAR VOLUME 114 FL (80-99); MEAN PLATELET VOLUME 6.8 FL (6.5-10.1); PLATELET COUNT 134 K/UL (150-450); RED BLOOD COUNT 1.52 M/UL (4.70-6.10); RED CELL DISTRIBUTION WIDTH 23.6 % (11.6-14.8)
[2016-09-22 13:50] LABS: ABG ALLEN TEST POSITIVE; ABG BASE EXCESS -18.8
[2016-09-22 13:56] LABS: WHITE BLOOD COUNT 28.1 K/UL (4.8-10.8)
[2016-09-22 14:02] LABS: BAND NEUTROPHILS % (MANUAL) 21 % (0-8); LYMPHOCYTES % (MANUAL) 6 % (20-45); METAMYELOCYTES % 3 % (0-0); NEUTROPHILS % (MANUAL) 64 % (45-75); TOTAL CELLS COUNTED 100
[2016-09-22 14:03] LABS: ANISOCYTOSIS 3+; BASOPHILS % (MANUAL) 0 % (0-2); EOSINOPHILS % (MANUAL) 0 % (0-3); HYPOCHROMASIA 2+; MACROCYTES 1+; PLATELET ESTIMATE DECREASED; PLATELET MORPHOLOGY NORMAL
[2016-09-22 14:11] LABS: CALCIUM 8.2 mg/dL (8.6-10.2); CREATININE 1.9 mg/dL (0.7-1.2); GLOMERULAR FILTRATION RATE 36.6 mL/min (>60); POTASSIUM 5.5 mEQ/L (3.4-4.9)
--- NOTE | 2016-09-22 15:07 | GI Progress Note ---
Assessment/Plan Problems: (1) Sepsis ICD Codes: A41.9 - Sepsis, unspecified organism SNOMED: 08145080 (2) large ascites (3) Esophageal varices determined by endoscopy ICD Codes: I85.00 - Esophageal varices without bleeding SNOMED: 58165209, 490479809 (4) Feeding by G-tube ICD Codes: Z93.1 - Gastrostomy status SNOMED: 205721638, 995954022 (5) Liver cirrhosis ICD Codes: K74.60 - Unspecified cirrhosis of liver SNOMED: 43187220 (6) Ascites ICD Codes: R18.8 - Other ascites SNOMED: 611435484 Status Narrative Discussed with Dr. Arndt. Assessment/Plan pt coded, @ 1345. Subjective Subjective unable Objective Last 24 Hour Vital Signs Date Time Temp Pulse Resp B/P Pulse Ox O2 Delivery O2 Flow Rate FiO2 09/22/16 13:03 110 24 35 09/22/16 12:00 35 09/22/16 11:06 114 29 35 09/22/16 09:06 100 25 35 09/22/16 08:00 35 09/22/16 08:00 105 09/22/16 08:00 96.5 110 20 109/62 100 Mechanical Ventilator 35 09/22/16 07:00 111 24 35 09/22/16 04:38 103 21 35 09/22/16 04:13 103 09/22/16 04:00 95.9 107 20 94/59 100 Mechanical Ventilator 35 09/22/16 04:00 35 09/22/16 03:08 101 14 35 09/22/16 01:25 104 17 35 09/22/16 00:00 110 09/22/16 00:00 35 09/22/16 00:00 95.5 101 20 144/50 100 Mechanical Ventilator 35 09/21/16 22:51 103 17 35 09/21/16 21:22 95 18 35 09/21/16 20:00 96.1 99 17 105/55 100 Mechanical Ventilator 35 09/21/16 20:00 35 09/21/16 19:49 96 09/21/16 19:04 89 15 35 09/21/16 17:02 99 18 35 09/21/16 16:00 80 09/21/16 16:00 35 09/21/16 16:00 97.1 80 18 131/68 100 Mechanical Ventilator 35 09/21/16 15:20 103 18 35 Intake and Output 09/21/16 09/22/16 19:00 07:00 Intake Total 1020 ml 1120 ml Output Total 61500 ml 250 ml Balance -9179 ml 870 ml Free Water 30 ml IV Total 990 ml 1120 ml Output Urine Total 200 ml 250 ml Other 9999 ml Laboratory Tests Test 09/21/16 22:22 09/22/16 12:45 09/22/16 13:21 Arterial Blood pH 7.446 (7.350-7.450) 7.199 (7.350-7.450) Arterial Blood Partial Pressure CO2 26.3 mmHg (35.0-45.0) L 20.0 mmHg (35.0-45.0) *L Arterial Blood Partial Pressure O2 141.3 mmHg (75.0-100.0) H 187.3 mmHg (75.0-100.0) H Arterial Blood HCO3 17.7 mmol/L (22.0-26.0) L 7.3 mmol/L (22.0-26.0) L Arterial Blood Oxygen Saturation 98.6 % (92.0-98.0) H 98.6 % (92.0-98.0) H Arterial Blood Base Excess -5.9 -18.8 Primitivo Test Positive Positive White Blood Count 28.1 K/UL (4.8-10.8) *H Red Blood Count 1.52 M/UL (4.70-6.10) L Hemoglobin 5.1 G/DL (14.2-18.0) *L Hematocrit 17.2 % (42.0-52.0) L Mean Corpuscular Volume 114 FL (80-99) H Mean Corpuscular Hemoglobin 33.3 PG (27.0-31.0) H Mean Corpuscular Hemoglobin Concent 29.4 G/DL (32.0-36.0) L Red Cell Distribution Width 23.6 % (11.6-14.8) H Platelet Count 134 K/UL (150-450) L Mean Platelet Volume 6.8 FL (6.5-10.1) Neutrophils (%) (Auto) % (45.0-75.0) Lymphocytes (%) (Auto) % (20.0-45.0) Monocytes (%) (Auto) % (1.0-10.0) Eosinophils (%) (Auto) % (0.0-3.0) Basophils (%) (Auto) % (0.0-2.0) Differential Total Cells Counted 100 Neutrophils % (Manual) 64 % (45-75) Lymphocytes % (Manual) 6 % (20-45) L Monocytes % (Manual) 6 % (1-10) Eosinophils % (Manual) 0 % (0-3) Basophils % (Manual) 0 % (0-2) Metamyelocytes % 3 % (0-0) H Band Neutrophils 21 % (0-8) H Platelet Estimate Decreased L Platelet Morphology Normal Hypochromasia 2+ Anisocytosis 3+ Macrocytosis 1+ Sodium Level 135 mEQ/L (135-145) Potassium Level 5.5 mEQ/L (3.4-4.9) H Chloride Level 96 mEQ/L (98-107) L Carbon Dioxide Level 9 mEQ/L (20-30) *L Anion Gap 30 (5-15) H Blood Urea Nitrogen 81 mg/dL (7-23) H Creatinine 1.9 mg/dL (0.7-1.2) H Estimat Glomerular Filtration Rate 36.6 mL/min (>60) Glucose Level 29 mg/dL (74-106) *L Calcium Level 8.2 mg/dL (8.6-10.2) L Lipase 28 U/L (< 60) Height (Feet): 5 Height (Inches): 7.00 Weight (Pounds): 150 Paulette Romero NRuthann Sep 22, 2016 15:07
--- NOTE | 2016-09-22 19:52 | Pulmonology Progress Note ---
Assessment/Plan Problems: (1) Chronic respiratory failure (2) Ascites (3) Decubitus ulcer (4) Liver cirrhosis (5) Feeding by G-tube Assessment/Plan pts general health has been deteriorating for some time with recurrent admissions for sepsis. today pt was more lethargic, he became bradycardic, Pt was brother was contacted he agreed with DNR. considering pts poor health status. That was the bes decision. minutes later pt . Subjective ROS Limited/Unobtainable: Yes Allergies: Coded Allergies: No Known Allergies (Unverified , 06/09/16) Objective Last 24 Hour Vital Signs Date Time Temp Pulse Resp B/P Pulse Ox O2 Delivery O2 Flow Rate FiO2 09/22/16 13:03 110 24 35 09/22/16 12:00 117 09/22/16 12:00 96.7 109 20 113/69 100 Mechanical Ventilator 35 09/22/16 12:00 35 09/22/16 11:06 114 29 35 09/22/16 09:06 100 25 35 09/22/16 08:00 35 09/22/16 08:00 105 09/22/16 08:00 96.5 110 20 109/62 100 Mechanical Ventilator 35 09/22/16 07:00 111 24 35 09/22/16 04:38 103 21 35 09/22/16 04:13 103 09/22/16 04:00 95.9 107 20 94/59 100 Mechanical Ventilator 35 09/22/16 04:00 35 09/22/16 03:08 101 14 35 09/22/16 01:25 104 17 35 09/22/16 00:00 110 09/22/16 00:00 35 09/22/16 00:00 95.5 101 20 144/50 100 Mechanical Ventilator 35 09/21/16 22:51 103 17 35 09/21/16 21:22 95 18 35 09/21/16 20:00 96.1 99 17 105/55 100 Mechanical Ventilator 35 09/21/16 20:00 35 Intake and Output 09/21/16 09/22/16 19:00 07:00 Intake Total 1020 ml 1120 ml Output Total 74239 ml 250 ml Balance -9179 ml 870 ml Free Water 30 ml IV Total 990 ml 1120 ml Output Urine Total 200 ml 250 ml Other 9999 ml General Appearance: cachetic HEENT: normocephalic, atraumatic Respiratory/Chest: chest wall non-tender, crackles/rales Cardiovascular: normal peripheral pulses, normal rate Abdomen: normal bowel sounds, soft, non tender Extremities: no cyanosis Microbiology Date/Time Source Procedure Growth Status 09/21/16 12:30 Urine,Clean Catch Urine Culture - Preliminary Gram Negative Bacillus 1 Resulted Laboratory Tests 09/21/16 22:22: Arterial Blood pH 7.446, Arterial Blood Partial Pressure CO2 26.3L, Arterial Blood Partial Pressure O2 141.3H, Arterial Blood HCO3 17.7L, Arterial Blood Oxygen Saturation 98.6H, Arterial Blood Base Excess -5.9, Primitivo Test Positive 09/22/16 12:45: White Blood Count 28.1*H, Red Blood Count 1.52L, Hemoglobin 5.1*L, Hematocrit 17.2L, Mean Corpuscular Volume 114H, Mean Corpuscular Hemoglobin 33.3H, Mean Corpuscular Hemoglobin Concent 29.4L, Red Cell Distribution Width 23.6H, Platelet Count 134L, Mean Platelet Volume 6.8, Neutrophils (%) (Auto) , Lymphocytes (%) (Auto) , Monocytes (%) (Auto) , Eosinophils (%) (Auto) , Basophils (%) (Auto) , Differential Total Cells Counted 100, Neutrophils % ( Manual) 64, Lymphocytes % (Manual) 6L, Monocytes % (Manual) 6, Eosinophils % ( Manual) 0, Basophils % (Manual) 0, Metamyelocytes % 3H, Band Neutrophils 21H, Platelet Estimate DecreasedL, Platelet Morphology Normal, Hypochromasia 2+, Anisocytosis 3+, Macrocytosis 1+, Sodium Level 135, Potassium Level 5.5H, Chloride Level 96L, Carbon Dioxide Level 9*L, Anion Gap 30H, Blood Urea Nitrogen 81H, Creatinine 1.9H, Estimat Glomerular Filtration Rate 36.6, Glucose Level 29*L, Calcium Level 8.2L, Lipase 28 09/22/16 13:21: Arterial Blood pH 7.199*L, Arterial Blood Partial Pressure CO2 20.0*L, Arterial Blood Partial Pressure O2 187.3H, Arterial Blood HCO3 7.3L, Arterial Blood Oxygen Saturation 98.6H, Arterial Blood Base Excess -18.8, Primitivo Test Positive DANTE HSIEH Sep 22, 2016 19:52
--- NOTE | 2016-09-24 01:02 | Cardiology Report ---
APPROVED REPORT EKG Measurement Heart [id number] Normal sinus rhythm Low voltage QRS Borderline ECG
--- NOTE | 2016-09-24 10:53 | Discharge Summary ---
Discharge Summary Hospital Course Date of Admission Sep 18, 2016 at 19:25 Date of Discharge Sep 22, 2016 at 16:54 Admitting Diagnosis -Ascites HPI Arnaldo Ramirez is a 56 year old male who was admitted on Sep 18, 2016 at 19:25 for Ascites Hospital Course [id number] Discharge Discharge Disposition Patient was discharged to Discharge Diagnoses: Kayli Hoff NP Sep 24, 2016 10:53
--- NOTE | 2016-09-24 23:47 | Discharge Summary 2 SIG ---
DATE OF ADMISSION: 09/18/2016 DATE OF DISCHARGE: 09/22/2016 CONSULTANTS: 1. Anthony Arndt M.D. 2. Marc Urena M.D. BRIEF SUMMARY: The patient is a 56-year-old male with a history of end-stage liver disease, chronic trach, on vent and PEG, who was brought in from longterm facility for evaluation of ascites. He was recently admitted for gastrointestinal bleed and was discharged to [facility]. However, there was a concern for recurrence of his ascites and the patient was taken back to ED. On evaluation, laboratories showed creatinine of 1.3. Hemoglobin was 8.3 and hematocrit 24. He was admitted to the [facility] for ascites and to rule out SBP. He was started on ceftriaxone, Lasix, and lactulose. He was started on Tygacil and underwent ultrasound-guided paracenteses yielding 11 liters of fluid. He came in with multiple deep tissue injury and a sacral pressure ulcer stage IV. Wound care was rendered. Venous duplex of lower extremity revealed an acute nonocclusive thrombus on the left leg.. On 09/22/2016, the patient was found altered and unresponsive. The patient code was changed to DNR. The patient eventually . FINAL DIAGNOSES: 1. End-stage liver disease with liver cirrhosis. 2. Urinary tract infection. 3. Chronic respiratory failure, on trach and PEG. 4. Ascites status post paracentesis. 5. Stage IV sacral pressure ulcer, present on admission. 6. Sepsis. 7. Feeding via G-tube. 8. Esophageal varices. 9. DNR/comfort care. Uma Breen M.D. I have been assigned to dictate discharge summary on this account and I was not involved in the patient's management. Kayli Hoff N.P. DR: SIVA JOB#: [id number] CC: JEROD
== END 2016-09-22 16:54 | disposition expired ==
LOC: EDUNIT# 15:38 → EDBD 15:38 → EMR 16:30 → 2W 19:25 → EDBEDREQ 19:33
PROC: 5A1945Z Respiratory Ventilation, 24-96 Consecutive Hours (ICD-10-PCS; principal; 2016-09-18)
PROC: 0W9G3ZZ Drainage of Peritoneal Cavity, Percutaneous Approach (ICD-10-PCS; 2016-09-21)
DX: R18.8 Other ascites (principal); A41.9 Sepsis, unspecified organism; Z99.11 Dependence on respirator [ventilator] status; J96.10 Chronic respiratory failure, unspecified whether with hypoxia or hypercapnia; L89.154 Pressure ulcer of sacral region, stage 4; Z43.0 Encounter for attention to tracheostomy; Z51.5 Encounter for palliative care; Z66 Do not resuscitate; I85.00 Esophageal varices without bleeding; K74.60 Unspecified cirrhosis of liver; N39.0 Urinary tract infection, site not specified; B96.1 Klebsiella pneumoniae [K. pneumoniae] as the cause of diseases classified elsewhere; Z16.39 Resistance to other specified antimicrobial drug; K80.20 Calculus of gallbladder without cholecystitis without obstruction; Z43.1 Encounter for attention to gastrostomy; D62 Acute posthemorrhagic anemia; B19.20 Unspecified viral hepatitis C without hepatic coma; B96.81 Helicobacter pylori [H. pylori] as the cause of diseases classified elsewhere
CPT/HCPCS: 36415; 36600; 76700; 76942; 80048; 80053; 81003; 82140; 82248; 82803; 83690; 85007; 85025; 85610; 85730; 87070; 87086; 87181; 87205; 93005; 93970; 94002; 94003; 94664